=== PATIENT | female | born 1955 | race Caucasian/White ===

== ENCOUNTER 2023-12-10 17:14 | Inpatient (IN) | payer MEDICARE, SELFPAY ==
[2023-12-10] VITALS (11 sets, daily range): BP systolic 115–155; BP diastolic 63–88; BMI 25.4; BMI 24.3
--- NOTE | 2023-12-10 11:08 | ED.GENMED ---
History of Present Illness
General
Chief Complaint: Chest Pain
Source: patient and ambulance crew
Exam Limitations: none
Time Seen by Provider: 12/10/23 11:00
Nursing documentation reviewed up to this point in time: agreed with
Travel History
Have you had any contact with someone who has COVID-19?: No
Do you have any symptoms of coronavirus? Fever > 100 degrees, chills, cough, shortness of breath, sore throat, loss of taste or smell, muscle aches, or headache?: No
History of Present Illness
History of Present Illness:
The patient is a 68-year-old female who comes in with complaints of 2 days of nausea, vomiting and diarrhea. Patient reports mid upper abdominal pain radiating into her lower chest. She denies fever. She denies shortness of breath. She denies
bloody or black stools. Patient complains of feeling very nauseous. She denies recent antibiotic use or travel history. She denies sick contacts
Past History
Past History
ED Past Medical History: Cancer (Skin Cancer face), GERD, HTN, Psychiatric (Aniety), Other (GI bleeding, HIatal hernia. Ulcers, anemia. ) and Other (recent colitis, severe esophagitis, alcohol abuse, benzodiazepine withdrawal)
ED Past Surgical History: Appendectomy, Cholecystectomy, Gynecological (hysterectomy, RUE epicondylitis X 2) and Orthopedic
Patient has exhibited threatening behavior?: No
PSI?: No
Social History
Tobacco: Former smoker
Alcohol: Occasional
Drug: None
Personal:
Living: alone
Family History
Family History: Other
Review of Systems
Review of Systems
Allergies reviewed?: Yes
All Other Systems: ROS reviewed and negative except as documented in HPI and ROS
Constitutional: Reports fatigue
EENT: Reports no symptoms
Respiratory: Reports no symptoms
Cardiac: Reports chest pain
ABD/GI: Reports abdominal pain, nausea, vomiting and diarrhea
: Reports no symptoms
Musculoskeletal: Reports no symptoms
Skin: Reports no symptoms
Neurological: Reports no symptoms
Endocrine: Reports no symptoms
Hematologic/Lymphatic: Reports no symptoms
Psychiatric: Reports anxiety
Phy Exam
Physical Exam
Physical Exam:
Physical Exam
General: Patient appears very anxious. Is hyperventilating but conversational
Neck: supple. no meningeal signs. normal psoterior pharynx
Heart: s1/s2 regular rate and rhythm, no murmur. equal radial pulses.
Lungs: no acute respiratory distress. clear bilaterally
Abdomen: Soft. Nondistended. No pulsatile mass. Upper abdominal tenderness without rebound or guarding
Neuro: alert and oriented. no focal neurological deficits
Skin: no rash
Psychiatric: well kept. interactive and cooperative
Extremities: no edema. no calf tenderness. negative homans. good distal pulses
Scores
Heart Score for Chest Pain Patients
STEMI patient?: Not applicable
Course
Orders/Labs/Results
Orders:
Orders
12/10/23 11:01
Electrocardiogram (*1) Urgent
Reason for Study: Chest Pain
EKG- Treatment ONCE
12/10/23 11:16
Ondansetron HCl [Zofran] 4 mg PO NOW STA
12/10/23 11:26
Basic Metabolic Panel Urgent
Complete Blood Count/With Diff Urgent
Lipase Urgent
Troponin I Urgent
12/10/23 12:05
Alcohol Urgent
[id number]-Qbtjvzm Urgent
Comment: ADD ON
Potassium Urgent
0.9% Sodium Chloride 1000 ml [Nss] 1,000 ml IV BOLUS
12/10/23 12:08
Morphine Sulfate 4 mg IV NOW STA
Ondansetron Injectable [Zofran] 4 mg IV NOW STA
12/10/23 12:11
Morphine Sulfate 4 mg .ROUTE .STK-MED ONE
12/10/23 12:20
CT Abd/pelvis W Iv Cont Urgent
Comment:
Reason For Exam: epig pain, vomiting
12/10/23 12:37
Add On- LAB Urgent
Tests Added?: Liver-chem profile
12/10/23 12:41
Add On- LAB Urgent
Tests Added?: serum alcohol
12/10/23 13:32
Mag Hydrox/Al Hydrox/Simeth [Maalox] 30 ml Phenobarb/Hyoscy/Atropine/Scop [] 10 ml Viscous Lidocaine 2% [Xylocaine Viscous Cup] 10 ml PO NOW
12/10/23 13:34
Mag Hydrox/Al Hydrox/Simeth [Maalox] 30 ml .ROUTE .STK-MED ONE
Phenobarb/Hyoscy/Atropine/Scop [] 10 ml .ROUTE .STK-MED ONE
12/10/23 13:35
Viscous Lidocaine 2% [Xylocaine Viscous Cup] 15 ml .ROUTE .STK-MED ONE
Abnormal Lab Results
12/10/23 12/10/23
11:26 12:05
WBC 15.3 H 10^3/uL
(4.8-10.8)
RBC 3.43 L 10^6/uL
(4.20-5.40)
Hgb 11.1 L g/dL
(12.0-16.0)
Hct 31.7 L %
(37.0-47.0)
MCH 32.4 H pg
(27.0-31.0)
RDW 15.9 H %
(11.5-14.5)
Abs Immat Gran (auto) 0.1 H 10^3/uL
(0-0.05)
Absolute Neuts (auto) 13.6 H 10^3/uL
(1.4-6.5)
Absolute Lymphs (auto) 0.8 L 10^3/uL
(1.2-3.4)
Absolute Monos (auto) 0.7 H 10^3/uL
(0.1-0.6)
Neutrophils % 88.9 H %
(42.2-75.2)
Lymphocytes % 5.5 L %
(20.5-51.1)
Sodium 133 L mmol/L
(135-145)
Potassium 3.1 L mmol/L
(3.5-5.1)
Glucose 163 H mg/dl
(70-99)
Calcium 8.2 L mg/dl
(8.4-10.2)
Total Bilirubin 1.4 H mg/dl
(0.2-1.3)
AST 47 H U/L
(14-36)
Total Protein 6.1 L g/dl
(6.3-8.2)
12/10/23 11:26
12/10/23 12:05
Vital Signs
Initial and Last Documented VS:
Initial Vital Signs
Temp Pulse Resp BP Pulse Ox
98.3 F 108 22 123/73 98
12/10/23 10:58 12/10/23 10:58 12/10/23 10:58 12/10/23 10:58 12/10/23 10:58
Last Documented Vital Signs
Temp Pulse Resp BP Pulse Ox
98.3 F 96 20 129/74 98
12/10/23 10:58 12/10/23 12:00 12/10/23 12:00 12/10/23 12:00 12/10/23 10:58
MDM/Problems Addressed
Differential Diagnosis Includes:
Gastritis, gastroenteritis, acute cholecystitis, aortic aneurysm
MDM/Problems Addressed:
Patient presents with acute upper abdominal pain rating into her chest as well as acute nausea, vomiting and diarrhea
Chronic conditions affecting care:
GERD
Acute Exacerbation and/or Progression of Chronic Illness:
Patient may be having acute exacerbation of gastritis
Acute Exacerbation and/or Progression of Chronic Illness: Other (GERD)
*Pulse Oximetry
Patient hypoxic: no
*EKG
Interpreted by ED Provider?: Yes
Interpretation: abnormal
Comparison EKG: no changes
Rate: normal
Rhythm: sinus
Nunda: normal axis
Interval: normal interval
QRS Pattern: normal QRS
Ischemia: non-specific ST changes
*Activities Counselor Interpretation
Rate: normal
Interpretation: normal
Rhythm: sinus
*Critical Care Note
Total Time (30-74mins, 75-104mins- exclusive of procedures): Not Applicable
Data Reviewed
Review of Other/Old Records Reveals: Discharge Summary (Discharge summary reviewed from 10/10/2023 when patient was admitted for coffee-ground emesis and acute renal failure)
Source: patient and ambulance crew
ED Attending Note
-
Portions of this chart may have been created with voice recognition software.� Occasional wrong word or��sound alike� substitutions may have occurred due to the inherent limitations of voice recognition software.
Discharge Plan
Departure
Patient Disposition: Home (Routine Discharge)
Date of Disposition: 12/10/23
Time of Disposition: 13:57
Patient with high blood pressure during this ER visit?: Yes
Condition: Good
Covid-19: Not Applicable
Discharge Problem:
Intractable epigastric abdominal pain, Intractable vomiting
Prescriptions:
No Action
lorazepam [Ativan] 0.5 mg tablet
0.5 mg PO HSPRN PRN (Reason: sleep/anxiety) 5 Days Qty: 5 0RF
Rx Instructions:
12/10/23: filled #7 lorazepam 0.5mg tablets on 11/15/23 [facility] #[id number]
sumatriptan succinate [Imitrex] 50 mg tablet
50 mg PO ONCE
Rx Instructions:
Can repeat 50 mg dose 2 hours from last dose; max 200 mg/24 hrs; use for 2 days/week max
pantoprazole 40 mg tablet,delayed release (DR/EC)
40 mg PO BID
Referrals:
Ishaan Ames, [Family Provider] -
Interventions
Interventions:
*Risk Screen - Suicide Last Done: 12/10/23 10:58
*General Assessment Last Done: 12/10/23 10:58
*Neglect/Abuse Screening Last Done: 12/10/23 10:58
ED- Cardiac Assessment Last Done: 12/10/23 11:09
[2023-12-10] MEDS: ZOFRAN 4 MG PO (11:23)
[2023-12-10 11:36] LABS: % Basophils 0.4 % (0-2); % Eosinophils 0.1 % (0-6); % Immature Granulocytes 0.3 % (0-0.5); % Lymphocytes 5.5 % (20.5-51.1); % Monocytes 4.8 % (1.7-9.3); % Neutrophils 88.9 % (42.2-75.2); Absolute Basophils 0.1 10^3/uL (0-0.2); Absolute Immature Granulocytes 0.1 10^3/uL (0-0.05); Absolute Lymphocytes 0.8 10^3/uL (1.2-3.4); Absolute Monocytes 0.7 10^3/uL (0.1-0.6); Absolute Neutrophils 13.6 10^3/uL (1.4-6.5); Hematocrit 31.7 % (37.0-47.0); Hemoglobin 11.1 g/dL (12.0-16.0); Mean Corpuscular Hgb 32.4 pg (27.0-31.0); Mean Corpuscular Volume 92.4 fL (81.0-99.0); Mean Platelet Volume 9.9 fL (7.4-10.4); Nucleated Red Blood Cells % 0 %; Platelet Count 213 10^3/uL (130-400); Red Blood Cell Count 3.43 10^6/uL (4.20-5.40); Red Cell Dist. Width 15.9 % (11.5-14.5); White Blood Cell Count 15.3 10^3/uL (4.8-10.8)
[2023-12-10 11:55] LABS: Blood Urea Nitrogen 17 mg/dl (7-17); Calcium 8.2 mg/dl (8.4-10.2); Carbon Dioxide 22 mmol/L (22-30); Chloride 100 mmol/L (98-107); Estimated Creatinine Clearance 59 ml/min; Glucose 163 mg/dl (70-99); Lipase 69 U/L (23-300); Sodium 133 mmol/L (135-145); eGFR > 60.00
[2023-12-10 11:57] LABS: Troponin I < 0.012 ng/ml
[2023-12-10] MEDS: MORPHINE SULFATE 4 MG IV (12:13)
[2023-12-10] MEDS: ZOFRAN 4 MG IV ×2 (12:14→17:59)
[2023-12-10] MEDS: NSS 1000 IV (12:16)
[2023-12-10 12:27] LABS: Potassium 3.1 mmol/L (3.5-5.1)
--- NOTE | 2023-12-10 12:28 | PHANOTE ---
Patient with recent hospitalization [discharged 10/10/23] and subsequent PCP follow up on 10/31/23 with other medications documented as 'taking', however, patient denies ongoing use at home: Vitamin D3 2000 units daily, cholestyramine light 4gr daily
[for loose BMs], magnesium oxide 400mg BID, famotidine 40mg daily, folic acid 1mg daily, sucralfate 1 gr AC&HS, and thiamine 100mg daily.
[2023-12-10 13:18] LABS: ALT (SGPT) 21 U/L (0-35); AST (SGOT) 47 U/L (14-36); Albumin 3.8 g/dl (3.5-5.0); Alkaline Phosphatase 109 U/L (38-126); Direct Bilirubin 0.1 mg/dl (0.0-0.4); Total Bilirubin 1.4 mg/dl (0.2-1.3); Total Protein 6.1 g/dl (6.3-8.2)
[2023-12-10 13:19] LABS: Alcohol None Detected
[2023-12-10] MEDS: MAALOX 50 PO (13:39)
--- NOTE | 2023-12-10 14:04 | HPS.HSE ---
Family Physician
-
Family Physician: Ishaan Ames
Chief Complaint
-
nausea vomiting
History of Present Illness
68 female history alcohol use disorder (endorses rarely drinking at this time, with last drink a week ago) anxiety IBS hiatal hernia chronic diarrhea hypertension presents with nausea vomiting 2 days duration with associated abdomen pain. Denies
fevers chills coughing sneezing shortness of breath.. Endorses weakness. Vital signs stable. Mild leukocytosis noted. Labs noted mild hypokalemia severe hypomagnesemia likely due to chronic diarrhea exacerbated by nausea vomiting. Mild
transaminitis bilirubin elevation nonsignificant. CT abdomen pelvis notes signs of gastritis and fatty liver disease.
Medical History
Past Medical History
Past Medical History: Reports Other (as above)
Past Surgical History: Reports Other (as above)
Social History
Tobacco: Non-smoker
Alcohol: Occasional
Drug: None
Living: With Family
Employment: Retired
Family History
Family History: Not pertinent (reviewed)
Allergies / Home Medications
Allergies reflects when Allergies were last updated in [employer].
Home Medications with original date entered in [employer]
Allergy/Medication List:
Allergies
Allergy/AdvReac Type Severity Reaction Status Date / Time
aspirin Allergy Unknown Verified 12/10/23 11:05
gabapentin Allergy Unknown Verified 12/10/23 11:05
NSAIDS (Non-Steroidal Allergy Unknown Verified 12/10/23 11:05
Anti-Inflamma
[id number] Reductase Allergy Swelling Verified 12/10/23 11:05
Inhibitor
Sulfa (Sulfonamide Allergy Unknown Verified 12/10/23 11:05
Antibiotics)
Home Medications
lorazepam 0.5 mg tablet (Ativan) 0.5 mg PO HSPRN PRN sleep/anxiety 5 days #5 tabs 07/31/23
pantoprazole 40 mg tablet,delayed release 40 mg PO BID Gastrointestinal Issue 12/10/23
sumatriptan succinate 50 mg tablet (Imitrex) 50 mg PO ONCE migraine 12/10/23
Review of Systems
-
A 12 point ROS was completed and negative except as noted: Yes
Constitutional: Reports Other (as below)
Physical Exam
Vital Signs
Vital Signs
Temp Pulse Resp BP Pulse Ox
98.3 F 96 20 129/74 98
12/10/23 10:58 12/10/23 12:00 12/10/23 12:00 12/10/23 12:00 12/10/23 10:58
Physical Exam
General: Other (as below)
Laboratory Results
-
12/10/23 11:26
12/10/23 12:05
Laboratory Results
Total Bilirubin Cancelled 12/10/23 12:18
AST Cancelled 12/10/23 12:18
ALT Cancelled 12/10/23 12:18
Alkaline Phosphatase Cancelled 12/10/23 12:18
Troponin I < 0.012 ng/ml 12/10/23 11:26
Lipase 69 U/L (23-300) 12/10/23 11:26
Impression/Plan
-
ROS
General: Denies fever chills night sweats unexpected weight loss
Neuro: Denies seizure shaking loss of consciousness dizziness vertigo
Psych: denies depression hallucinations confusion manic episodes
Endocrine: Denies polyuria polydipsia polyphagia heat/cold intolerance
HEENT: Denies blindness visual disturbances epistaxis
Pulmonary: denies coughing hemoptysis sneezing sob dyspnea on exertion
Cardiovascular: denies chest pain palpitations leg swelling
Hematology: denies signs symptoms of anemia easy bruising/bleeding
Gastrointestinal: Endorses nausea vomiting diarrhea denies blood in stool and vomiting
Genito-Urinary: denies retention incontinence dysuria
Musculoskeletal: denies joint pain weakness
Dermatology: denies rash laceration bruising
Physical Exam
General: No pallor, cyanosis, or jaundice.
HEENT: Throat clear. PERRLA Normocephalic atraumatic
NECK: Supple. No JVD Carotid Bruits
RESPIRATORY: Lungs clear to auscultation. No crackles wheezes stridor
CVS: S1, S2 normal. RRR. No murmur, rub or gallop.
ABDOMEN: Soft, diffusely tender. Bowel sounds present
EXTREMITIES: No peripheral cyanosis or edema.
IT TECHNICAL ARCHITECT: AOx3. No focal deficits.
IMPRESSION:
68 female history alcohol use disorder (endorses rarely drinking at this time, with last drink a week ago) anxiety IBS hiatal hernia chronic diarrhea hypertension presents with nausea vomiting 2 days duration with associated abdomen pain. Denies
fevers chills coughing sneezing shortness of breath.. Endorses weakness. Vital signs stable. Mild leukocytosis noted. Labs noted mild hypokalemia severe hypomagnesemia likely due to chronic diarrhea exacerbated by nausea vomiting. Mild
transaminitis bilirubin elevation nonsignificant. CT abdomen pelvis notes signs of gastritis and fatty liver disease.
PLAN:
#Gastritis suspect viral versus acute exacerbation IBS
#Severe hypomagnesemia likely due to GI losses
#Mild hypokalemia
#History anxiety disorder
#IBS
#Leukocytosis suspect stress reactive
Telemetry admit
Monitor replete electrolytes
IV fluid support bowel rest n.p.o. except meds
prn pain antiemetics
Continue home Protonix twice daily
trend wbc
blood cultures empiric abx if patient develops fever
aggressively replete Mg and Potassium
cont home prn HS ativan
dvt Lovenox
gi ppx Protonix
meds reconciled and resumed as appropriate
Full Code
I spent a total of 80 minutes with the patient or on the floor. More than 50% of this time involved counseling and coordination of care.
[2023-12-10 15:33] LABS: Magnesium 0.7 mg/dl (1.6-2.3); Phosphorus 4.2 mg/dl (2.5-4.5)
[2023-12-10] MEDS: NSS with KCL 40 MEQ 1000 IV (17:07)
[2023-12-10] MEDS: MAGNESIUM SULFATE 100 IV (17:08)
[2023-12-10] MEDS: DILAUDID 0.5 MG IV (17:58)
[2023-12-10] MEDS: LR 1000 IV (18:25)
--- NOTE | 2023-12-10 21:30 | PTCARENOTE ---
Pt arrived to room 434-01. Pt ambulated from stretcher to bed with x1 assist. Pt AAOx3, VSS. Pt c/o 04/01 ABD pain, pain meds given prior to arrival- see NOV. Pt in no signs of acute distress, respirations regular. Pt oriented to room, call campos
placed within reach.
[2023-12-10] MEDS: TYLENOL 650 MG PO (21:43)
[2023-12-10] MEDS: LOVENOX 40 MG SC (21:43)
[2023-12-10] MEDS: PROTONIX 40 MG PO (21:43)
[2023-12-10] MEDS: ATIVAN 0.5 MG PO (21:44)
[2023-12-10 21:55] LABS: Blood Urea Nitrogen 11 mg/dl (7-17); Calcium 7.9 mg/dl (8.4-10.2); Carbon Dioxide 30 mmol/L (22-30); Chloride 102 mmol/L (98-107); Estimated Creatinine Clearance 59 ml/min; Glucose 112 mg/dl (70-99); Magnesium 2.7 mg/dl (1.6-2.3); Potassium 3.1 mmol/L (3.5-5.1); Sodium 133 mmol/L (135-145); eGFR > 60.00
[2023-12-11] MEDS: DILAUDID 0.5 MG IV ×5 (01:01→19:11)
[2023-12-11 03:00] VITALS: BP 124/76
--- NOTE | 2023-12-11 03:45 | PTCARENOTE ---
Pt reported chest pain, VSS BP 124/76, HR 85. EKG done NSR, in chart. Pt reports the pain was in the sternal area and gets worse with deep breaths. Pt stated, 'This has been going on for the last couple months.' Pt reports chest pain is almost
completely resolved. YOUTH PASTOR Vicki, So Ri made aware, no further orders.
[2023-12-11] MEDS: LR 1000 IV ×2 (05:25→15:49)
[2023-12-11] MEDS: ZOFRAN 4 MG IV ×2 (05:31→19:11)
[2023-12-11 06:23] VITALS: BMI 24.3
--- NOTE | 2023-12-11 07:11 | W.PN.HOSP.TC ---
Today's Communication/Plan
-
advance diet clear liquid
cont IVF support for now
replete Potassium and Calcium
Assessment / Plan
Assessment / Plan
Physical Exam
General: No pallor, cyanosis, or jaundice.
HEENT: Throat clear. PERRLA Normocephalic atraumatic
NECK: Supple. No JVD Carotid Bruits
RESPIRATORY: Lungs clear to auscultation. No crackles wheezes stridor
CVS: S1, S2 normal. RRR.� No murmur, rub or gallop.
ABDOMEN: Soft, diffusely tender.� Bowel sounds present
EXTREMITIES: No peripheral cyanosis or edema. Mild erythema tenderness swelling feet b/l
PHYSICS TECHNICIAN: AOx3. No focal deficits.
IMPRESSION:
68 female history alcohol use disorder (endorses rarely drinking at this time, with last drink a week ago) anxiety IBS hiatal hernia chronic diarrhea hypertension presents with nausea vomiting 2 days duration with associated abdomen pain.� Denies
fevers chills coughing sneezing shortness of breath..� Endorses weakness.� Vital signs stable.� Mild leukocytosis noted.� Labs noted mild hypokalemia severe hypomagnesemia likely due to chronic diarrhea exacerbated by nausea vomiting.� Mild
transaminitis bilirubin elevation nonsignificant.� CT abdomen pelvis notes signs of gastritis and fatty liver disease.
PLAN:
#Gastritis suspect viral versus acute exacerbation IBS
#Severe hypomagnesemia likely due to GI losses
#Mild hypokalemia
#Hypocalcemia
#History anxiety disorder
#IBS
#Leukocytosis suspect stress reactive, resolved w/o abx
#Mild erythema tenderness swelling feet b/l, monitor for now
Telemetry admit
Monitor replete electrolytes
diet advanced to clear liquid, cont IVF for now
prn pain antiemetics
Continue home Protonix twice daily
blood cultures empiric abx if patient develops fever
monitor and replete electrolytes Mg Potassium Calcium as necessary
cont home prn HS ativan
PT/OT eval
dvt Lovenox
gi ppx Protonix
Full Code
I spent a total of � 55 � minutes with the patient or on the floor. More than 50% of this time involved counseling and coordination of care.
Anticipated Discharge: 24 - 48 hours
Subjective/Interval History
-
Date of Service: December 11, 2023
Nausea resolved. Eager to eat. notes tenderness feet b/l past few days
Objective Data
-
Labs:
Laboratory Results
12/10/23 12/11/23
21:35 07:05
WBC Pending
Hgb Pending
Hct Pending
Plt Count Pending
Sodium 133 L Pending
Potassium 3.1 L Pending
Chloride 102 Pending
Carbon Dioxide 30 Pending
BUN 11 Pending
Creatinine 0.8 Pending
Glucose 112 H Pending
Calcium 7.9 L Pending
Vital Signs:
Vital Signs
Temp Pulse Resp BP Pulse Ox
98.1 F 85 18 124/76 96
12/11/23 03:00 12/11/23 03:00 12/11/23 03:00 12/11/23 03:00 12/10/23 22:43
I&O
12/10/23 12/11/23 12/12/23
06:59 06:59 06:59
Intake Total 700 / 700
Balance 700 / 700
[2023-12-11 07:48] VITALS: BP 130/68
[2023-12-11 08:36] LABS: Hematocrit 28.4 % (37.0-47.0); Hemoglobin 9.9 g/dL (12.0-16.0); Mean Corp Hgb Conc. 34.9 g/dL (33.0-37.0); Mean Corpuscular Hgb 33.1 pg (27.0-31.0); Mean Platelet Volume 10.3 fL (7.4-10.4); Platelet Count 154 10^3/uL (130-400); Red Blood Cell Count 2.99 10^6/uL (4.20-5.40); Red Cell Dist. Width 16.5 % (11.5-14.5); White Blood Cell Count 6.2 10^3/uL (4.8-10.8)
[2023-12-11 09:02] LABS: Blood Urea Nitrogen 7 mg/dl (7-17); Calcium 7.9 mg/dl (8.4-10.2); Carbon Dioxide 28 mmol/L (22-30); Chloride 103 mmol/L (98-107); Estimated Creatinine Clearance 59 ml/min; Glucose 96 mg/dl (70-99); Magnesium 1.8 mg/dl (1.6-2.3); Potassium 3.1 mmol/L (3.5-5.1); Sodium 134 mmol/L (135-145); eGFR > 60.00
[2023-12-11] MEDS: PROTONIX 40 MG PO ×2 (10:43→22:45)
[2023-12-11 11:41] VITALS: BP 147/77
[2023-12-11] MEDS: KCL 40 MEQ PO (15:49)
[2023-12-11 15:55] VITALS: BP 151/86
[2023-12-11] MEDS: CALCIUM GLUCONATE 100 IV (16:00)
--- NOTE | 2023-12-11 16:16 | CM ---
activity manager reviewed patient's chart and met with patient and patient lives with her friend Keira, patient states that ever since her boyfriend she has been living with her friend and her belongings are in storage. Patient is
independent with adl's and uses a walker with ambulation. patient has a prescription plan and used [facility].
PCP: Dr. Ishaan Ames
Plan: Home when stable.
[2023-12-11] MEDS: LOVENOX 40 MG SC (19:11)
[2023-12-11 19:44] VITALS: BP 136/77
[2023-12-11 22:16] VITALS: BP 146/82
[2023-12-11] MEDS: ATIVAN 0.5 MG PO (22:46)
[2023-12-12] VITALS (8 sets, daily range): BP systolic 108–154; BP diastolic 63–92; PULSE 96–99; O2SAT 97; BMI 24.3
[2023-12-12] MEDS: LR 1000 IV (03:39)
--- NOTE | 2023-12-12 07:23 | W.PN.HOSP.TC ---
Today's Communication/Plan
-
clear liquid diet advanced to low residue
IVF support completed
replete Potassium and Magnesium
Vit D supplementation started
Capsaicin cream QID b/l feet
Assessment / Plan
Assessment / Plan
Physical Exam
General: No pallor, cyanosis, or jaundice.
HEENT: Throat clear. PERRLA Normocephalic atraumatic
NECK: Supple. No JVD Carotid Bruits
RESPIRATORY: Lungs clear to auscultation. No crackles wheezes stridor
CVS: S1, S2 normal. RRR.� No murmur, rub or gallop.
ABDOMEN: Soft, diffusely tender.� Bowel sounds present
EXTREMITIES: No peripheral cyanosis or edema. Mild erythema tenderness swelling feet b/l improving
DIGITAL ENGINEER: AOx3
IMPRESSION:
68 female history alcohol use disorder (endorses rarely drinking at this time, with last drink a week ago) anxiety IBS hiatal hernia chronic diarrhea hypertension presents with nausea vomiting 2 days duration with associated abdomen pain.� Denies
fevers chills coughing sneezing shortness of breath..� Endorses weakness.� Vital signs stable.� Mild leukocytosis noted.� Labs noted mild hypokalemia severe hypomagnesemia likely due to chronic diarrhea exacerbated by nausea vomiting.� Mild
transaminitis bilirubin elevation nonsignificant.� CT abdomen pelvis notes signs of gastritis and fatty liver disease.
PLAN:
#Gastritis suspect viral versus acute exacerbation IBS
#Severe hypomagnesemia likely due to GI losses
#Mild hypokalemia
#Hypocalcemia
#History anxiety disorder
#IBS
#Leukocytosis suspect stress reactive, resolved w/o abx
#Mild erythema tenderness swelling feet b/l, monitor for now
Telemetry admit
Monitor replete electrolytes
diet advanced to Low residue, IVF completed
prn pain antiemetics
Continue home Protonix twice daily
blood cultures empiric abx if patient develops fever
monitor and replete electrolytes Mg Potassium Calcium as necessary
cont home prn HS ativan
PT/OT eval appreciated HH vs home no needs
#Vitamin D deficiency
Supplementation started
#B/l feet tenderness swelling erythema improving
capsaicin cream QID started
dvt Lovenox
gi ppx Protonix
Full Code
I spent a total of � 55 � minutes with the patient or on the floor. More than 50% of this time involved counseling and coordination of care.
Anticipated Discharge: 24 - 48 hours
Subjective/Interval History
-
Date of Service: December 12, 2023
Overall reports improvement in symptoms though continues to endorse b/l feet tenderness (color and swelling since improved). Also endorses episode nausea resolved with anti-emetic and reports diarrhea. Patient is however eager to advance diet to
solids, has no issues staying hydrated/drinking.
Objective Data
-
Labs:
Laboratory Results
12/12/23
06:58
WBC Pending
Hgb Pending
Hct Pending
Plt Count Pending
Sodium Pending
Potassium Pending
Chloride Pending
Carbon Dioxide Pending
BUN Pending
Creatinine Pending
Glucose Pending
Calcium Pending
Vital Signs:
Vital Signs
Temp Pulse Resp BP Pulse Ox
98.2 F 77 18 143/85 95
12/12/23 03:23 12/12/23 03:23 12/12/23 03:23 12/12/23 03:23 12/12/23 03:23
I&O
12/11/23 12/12/23 12/13/23
06:59 06:59 06:59
Intake Total 700 / 700 2099 900 / 900
Balance 700 / 700 2099 900 / 900
[2023-12-12] MEDS: DILAUDID 0.5 MG IV ×3 (08:19→17:40)
[2023-12-12] MEDS: PROTONIX 40 MG PO ×2 (08:19→21:19)
[2023-12-12 08:55] LABS: Hematocrit 30.7 % (37.0-47.0); Hemoglobin 10.6 g/dL (12.0-16.0); Mean Corp Hgb Conc. 34.5 g/dL (33.0-37.0); Mean Corpuscular Hgb 32.8 pg (27.0-31.0); Mean Platelet Volume 10.6 fL (7.4-10.4); Platelet Count 165 10^3/uL (130-400); Red Blood Cell Count 3.23 10^6/uL (4.20-5.40); Red Cell Dist. Width 15.9 % (11.5-14.5)
[2023-12-12 09:31] LABS: Blood Urea Nitrogen 3 mg/dl (7-17); Calcium 8.6 mg/dl (8.4-10.2); Carbon Dioxide 34 mmol/L (22-30); Chloride 100 mmol/L (98-107); Estimated Creatinine Clearance 59 ml/min; Glucose 98 mg/dl (70-99); Iron 63 ug/dl (37-170); Magnesium 1.2 mg/dl (1.6-2.3); Potassium 2.9 mmol/L (3.5-5.1); Sodium 137 mmol/L (135-145); eGFR > 60.00
[2023-12-12 09:40] LABS: Percent Saturation 25 % (20-50); Total Iron Binding Capacity 251 ug/dl (265-497)
[2023-12-12 11:37] LABS: Vitamin D, 25-OH*** 14.8 ng/mL (30-80)
[2023-12-12 12:26] LABS: Folate > 20.0 ng/ml (2.76-20); Vitamin B12 469 pg/ml (239-931)
[2023-12-12] MEDS: ZOFRAN 4 MG IV (12:40)
[2023-12-12] MEDS: VITAMIN D3 (cholecalciferol) 25 MCG PO (13:47)
[2023-12-12] MEDS: KCL 40 MEQ PO (13:47)
[2023-12-12] MEDS: MAGNESIUM SULFATE 100 IV (13:55)
[2023-12-12] MEDS: LR IV (13:55)
--- NOTE | 2023-12-12 14:53 | PN.CDI ---
CDI
- -
CDI:
Physician Documentation Request
Admit Date: 12/10/23 17:14
Dear Doctor Annika,
Clinical Indicators:
Patient admitted with suspected gastritis.
NSS bolus and maintenance fluids given.
Sodium levels:
12/10/23 12/10/23 12/11/23
11:26 21:35 07:05
Sodium 133 L 133 L 134 L
Based on the above, could you clarify in the progress notes, the appropriate diagnosis, if significant, that supports the above abnormalities and additional evaluation, monitoring and/or treatment rendered:
Hyponatremia
Abnormal lab value, clinically insignificant
Other, please specify
Use of terms such as suspected, likely, concern for, or probable (associated with a specific diagnosis that is being evaluated, monitored, or treated as if it exists) are acceptable and can be coded in the inpatient setting, when documented at the
time of discharge.
Thank you,
SHAHRZAD Schuster RN
CDI Specialist
available via tiger text
Please use your independent medical judgment in providing your response.
--- NOTE | 2023-12-12 16:05 | CM ---
manager clinical research reviewed patient's chart and met with patient and patient did well with physical therapy and plan is to home with friend at discharge. Patient was asking about housing options. manager clinical research provided information on HUB, housing and
apartments in area.
Home when stable, no needs.
[2023-12-12] MEDS: LOVENOX 40 MG SC (17:41)
[2023-12-12] MEDS: ZOSTRIX 0.025% CREAM 1 APPLIC TOPICAL ×2 (17:41→21:19)
[2023-12-12] MEDS: KCL 20 MEQ PO (21:19)
[2023-12-12] MEDS: ATIVAN 0.5 MG PO (22:36)
[2023-12-12] MEDS: TYLENOL 650 MG PO (22:41)
[2023-12-13 03:55] VITALS: BP 143/73
[2023-12-13 06:00] VITALS: BMI 24.1
--- NOTE | 2023-12-13 06:39 | PTCARENOTE ---
Patient is NPO, 0600 sugar was 80. Patient asymptomatic. NSS running. Janelle Yoon PRODUCTION SUPPORT CONSULTANT made aware, will make dayshift RN aware.
[2023-12-13 07:10] VITALS: BP 132/81
--- NOTE | 2023-12-13 07:58 | W.PN.HOSP.TC ---
Today's Communication/Plan
-
monitor and replete electrolytes
carafate as per GI
pain control
cont Vit D supplementation
Assessment / Plan
Assessment / Plan
Physical Exam
General: No pallor, cyanosis, or jaundice.
HEENT: Throat clear. PERRLA Normocephalic atraumatic
NECK: Supple. No JVD Carotid Bruits
RESPIRATORY: Lungs clear to auscultation. No crackles wheezes stridor
CVS: S1, S2 normal. RRR.� No murmur, rub or gallop.
ABDOMEN: Soft, diffusely tender.� Bowel sounds present
EXTREMITIES: No peripheral cyanosis or edema. Mild erythema tenderness swelling feet b/l improving
ADULT PAROLE OFFICER: AOx3
IMPRESSION:
68 female history alcohol use disorder (endorses rarely drinking at this time, with last drink a week ago) anxiety IBS hiatal hernia chronic diarrhea hypertension presents with nausea vomiting 2 days duration with associated abdomen pain.� Denies
fevers chills coughing sneezing shortness of breath..� Endorses weakness.� Vital signs stable.� Mild leukocytosis noted.� Labs noted mild hypokalemia severe hypomagnesemia likely due to chronic diarrhea exacerbated by nausea vomiting.� Mild
transaminitis bilirubin elevation nonsignificant.� CT abdomen pelvis notes signs of gastritis and fatty liver disease.
PLAN:
#Gastritis suspect viral versus acute exacerbation IBS
#Severe hypomagnesemia likely due to GI losses
#Mild hypokalemia
#Hypocalcemia
#History anxiety disorder
#IBS
#Leukocytosis suspect stress reactive, resolved w/o abx
#Mild erythema tenderness swelling feet b/l, monitor for now
Telemetry admit
Monitor replete electrolytes
diet advanced to Low residue, IVF completed
prn pain antiemetics
Continue home Protonix twice daily
blood cultures empiric abx if patient develops fever
monitor and replete electrolytes Mg Potassium Calcium as necessary
cont home prn HS ativan
PT/OT eval appreciated HH vs home no needs
GI eval appreciated carafate 1g QID, outpt GI follow up
#Vitamin D deficiency
Supplementation started
#B/l feet tenderness swelling erythema improving
capsaicin cream QID started, no benefit noted, discontinued
Feet b/l XR appreciated no acute fracture/dislocation, degenerative joint disease, soft tissue swelling L>R, improved from prior imaging
dvt Lovenox
gi ppx Protonix
Full Code
I spent a total of � 55 � minutes with the patient or on the floor. More than 50% of this time involved counseling and coordination of care.
Anticipated Discharge: 24 - 48 hours
Subjective/Interval History
-
Date of Service: December 13, 2023
Seen and examined at bedside in no acute distress. Overall symptoms improved. Reports intermittent nausea, increased Belching. Continues to report b/l feet tenderness swelling
Objective Data
-
Labs:
Laboratory Results
12/13/23
07:06
WBC Pending
Hgb Pending
Hct Pending
Plt Count Pending
Sodium Pending
Potassium Pending
Chloride Pending
Carbon Dioxide Pending
BUN Pending
Creatinine Pending
Glucose Pending
Calcium Pending
Vital Signs:
Vital Signs
Temp Pulse Resp BP Pulse Ox
98.4 F 66 16 143/73 97
12/13/23 03:55 12/13/23 03:55 12/13/23 03:55 12/13/23 03:55 12/13/23 03:55
I&O
12/12/23 12/13/23 12/14/23
06:59 06:59 06:59
Intake Total 2099 2780 / 2780
Balance 2099 2780 / 2780
[2023-12-13] MEDS: PROTONIX 40 MG PO ×2 (08:21→19:30)
[2023-12-13] MEDS: ZOSTRIX 0.025% CREAM 1 APPLIC TOPICAL ×2 (08:22→22:08)
[2023-12-13] MEDS: VITAMIN D3 (cholecalciferol) 25 MCG PO (08:22)
[2023-12-13] MEDS: KCL 20 MEQ PO ×2 (08:22→19:30)
[2023-12-13] MEDS: DILAUDID 0.5 MG IV ×3 (08:57→19:31)
[2023-12-13 09:38] LABS: Hematocrit 37.1 % (37.0-47.0); Hemoglobin 12.7 g/dL (12.0-16.0); Mean Corp Hgb Conc. 34.2 g/dL (33.0-37.0); Mean Corpuscular Hgb 32.8 pg (27.0-31.0); Mean Corpuscular Volume 95.9 fL (81.0-99.0); Mean Platelet Volume 10.4 fL (7.4-10.4); Platelet Count 183 10^3/uL (130-400); Red Blood Cell Count 3.87 10^6/uL (4.20-5.40); Red Cell Dist. Width 16.4 % (11.5-14.5); White Blood Cell Count 4.6 10^3/uL (4.8-10.8)
[2023-12-13 10:17] LABS: Blood Urea Nitrogen 8 mg/dl (7-17); Carbon Dioxide 34 mmol/L (22-30); Chloride 97 mmol/L (98-107); Estimated Creatinine Clearance 52 ml/min; Glucose 95 mg/dl (70-99); Potassium 3.2 mmol/L (3.5-5.1); Sodium 138 mmol/L (135-145); eGFR > 60.00
[2023-12-13 11:05] VITALS: BP 125/76
[2023-12-13] MEDS: ZOSTRIX 0.025% CREAM TOPICAL ×2 (12:53→17:06)
--- NOTE | 2023-12-13 14:03 | CM ---
Chart reviewed and plan is for patient to return to home when stable.
Plan; Home no needs.
[2023-12-13 15:10] VITALS: BP 120/58
[2023-12-13] MEDS: LOVENOX 40 MG SC (16:53)
[2023-12-13] MEDS: CARAFATE 1 GRAM PO ×2 (16:53→22:08)
[2023-12-13] MEDS: LIDOCAINE 4% PATCH 1 PATCH TOPICAL (16:53)
[2023-12-13 19:30] VITALS: BP 165/92
[2023-12-13] MEDS: ATIVAN 0.5 MG PO (22:08)
[2023-12-13] MEDS: TYLENOL 650 MG PO (22:08)
[2023-12-13 23:33] VITALS: BP 158/89
[2023-12-14] MEDS: DILAUDID 0.5 MG IV ×3 (00:05→13:07)
[2023-12-14] MEDS: TYLENOL 650 MG PO ×3 (03:17→22:04)
[2023-12-14 03:54] VITALS: BP 125/80
[2023-12-14 05:59] VITALS: BMI 24.3
[2023-12-14 07:00] VITALS: BP 130/85
[2023-12-14 07:08] LABS: Hematocrit 31.2 % (37.0-47.0); Hemoglobin 10.6 g/dL (12.0-16.0); Mean Corpuscular Hgb 32.6 pg (27.0-31.0); Mean Platelet Volume 9.9 fL (7.4-10.4); Platelet Count 184 10^3/uL (130-400); Red Blood Cell Count 3.25 10^6/uL (4.20-5.40); Red Cell Dist. Width 16.2 % (11.5-14.5); White Blood Cell Count 5.4 10^3/uL (4.8-10.8)
--- NOTE | 2023-12-14 07:17 | W.PN.HOSP.TC ---
Today's Communication/Plan
-
multivitamin thiamine supplementation
replete magnesium
carafate questran as per GI
Discharge planning home with VN vs no needs
Assessment / Plan
Assessment / Plan
Physical Exam
General: No pallor, cyanosis, or jaundice.
HEENT: Throat clear. PERRLA Normocephalic atraumatic
NECK: Supple. No JVD Carotid Bruits
RESPIRATORY: Lungs clear to auscultation. No crackles wheezes stridor
CVS: S1, S2 normal. RRR.� No murmur, rub or gallop.
ABDOMEN: Soft, diffusely tender.� Bowel sounds present
EXTREMITIES: No peripheral cyanosis or edema. Mild erythema tenderness swelling feet b/l improving
CHILDCARE AIDE: AOx3
IMPRESSION:
68 female history alcohol use disorder (endorses rarely drinking at this time, with last drink a week ago) anxiety IBS hiatal hernia chronic diarrhea hypertension presents with nausea vomiting 2 days duration with associated abdomen pain.� Denies
fevers chills coughing sneezing shortness of breath..� Endorses weakness.� Vital signs stable.� Mild leukocytosis noted.� Labs noted mild hypokalemia severe hypomagnesemia likely due to chronic diarrhea exacerbated by nausea vomiting.� Mild
transaminitis bilirubin elevation nonsignificant.� CT abdomen pelvis notes signs of gastritis and fatty liver disease.
PLAN:
#Gastritis suspect viral versus acute exacerbation IBS
#Severe hypomagnesemia likely due to GI losses
#Mild hypokalemia
#Hypocalcemia
#History anxiety disorder
#IBS
#Leukocytosis suspect stress reactive, resolved w/o abx
#Mild erythema tenderness swelling feet b/l, monitor for now
Telemetry admit
Monitor replete electrolytes
diet advanced to Low residue, IVF completed
prn pain antiemetics
Continue home Protonix twice daily
blood cultures empiric abx if patient develops fever
monitor and replete electrolytes Mg Potassium Calcium as necessary
cont home prn HS ativan
PT/OT eval appreciated HH vs home no needs
GI eval appreciated carafate 1g QID, Questran daily, outpt GI follow up
#Vitamin D deficiency
Supplementation started
#B/l feet tenderness swelling erythema improving
capsaicin cream QID started, no benefit noted, discontinued
Feet b/l XR appreciated no acute fracture/dislocation, degenerative joint disease, soft tissue swelling L>R, improved from prior imaging
suspect b/l feet pain d/t nutritional deficiencies vs neuropathy vs arthritis
Multivitamin thiamine supplementation started
dvt Lovenox
gi ppx Protonix
Full Code
I spent a total of � 55 � minutes with the patient or on the floor. More than 50% of this time involved counseling and coordination of care.
Anticipated Discharge: Within 24 hours
Subjective/Interval History
-
Date of Service: December 14, 2023
No acute distress sitting up comfortably in bed. continues to endorse bilateral feet pain.
Objective Data
-
Labs:
Laboratory Results
12/14/23
06:44
WBC 5.4
Hgb 10.6 L
Hct 31.2 L
Plt Count 184
Sodium Pending
Potassium Pending
Chloride Pending
Carbon Dioxide Pending
BUN Pending
Creatinine Pending
Glucose Pending
Calcium Pending
Vital Signs:
Vital Signs
Temp Pulse Resp BP Pulse Ox
98.4 F 72 18 125/80 93
12/14/23 03:54 12/14/23 03:54 12/14/23 03:54 12/14/23 03:54 12/14/23 03:54
I&O
12/13/23 12/14/23 12/15/23
06:59 06:59 06:59
Intake Total 2780 / 2780 440 / 440
Balance 2780 / 2780 440 / 440
[2023-12-14 07:28] LABS: Blood Urea Nitrogen 16 mg/dl (7-17); Calcium 8.6 mg/dl (8.4-10.2); Carbon Dioxide 30 mmol/L (22-30); Chloride 101 mmol/L (98-107); Estimated Creatinine Clearance 59 ml/min; Glucose 110 mg/dl (70-99); Potassium 3.7 mmol/L (3.5-5.1); Sodium 134 mmol/L (135-145); eGFR > 60.00
[2023-12-14] MEDS: CARAFATE 1 GRAM PO ×4 (08:22→22:04)
[2023-12-14] MEDS: FLUSH (NSS) 1 FLUSH IV ×2 (08:29→18:02)
[2023-12-14 08:34] LABS: Magnesium 1.4 mg/dl (1.6-2.3)
[2023-12-14] MEDS: PROTONIX 40 MG PO ×2 (09:31→19:58)
[2023-12-14] MEDS: VITAMIN B1 100 MG PO (09:31)
[2023-12-14] MEDS: THERAGRAN 1 TABLET PO (09:32)
[2023-12-14] MEDS: VITAMIN D3 (cholecalciferol) 25 MCG PO (09:32)
[2023-12-14] MEDS: MAGNESIUM OXIDE 500 MG PO (09:32)
[2023-12-14] MEDS: KCL 20 MEQ PO ×2 (09:33→19:58)
[2023-12-14] MEDS: LIDOCAINE 4% PATCH 1 PATCH TOPICAL (09:35)
[2023-12-14] MEDS: ZOSTRIX 0.025% CREAM 1 APPLIC TOPICAL ×3 (09:38→17:18)
[2023-12-14 11:00] VITALS: BP 104/65
[2023-12-14] MEDS: QUESTRAN LIGHT/PREVALITE 4 GRAMS PO (11:20)
--- NOTE | 2023-12-14 13:07 | W.PN.GI.CBS2 ---
Today's Communication / Plan
-
Continue Protonix/Carafate/Questran
Outpatient GI follow-up
Assessment / Plan
-
68-year-old female with history of Alcohol abuse, GERD with hiatal hernia, hypertension admitted with nausea/vomiting/abdominal pain for 2 days.� Multiple prior hospitalization with similar symptoms in the past. Denies any recent alcohol use.� On
admission noted to have elevated WBC /Electrolyte abnormalities�hypokalemia, severe hypomagnesemia. CT abdomen/pelvis with IV contrast performed in the ED. AST 47/ALT 21/total bilirubin 1.4/direct 1.1/alkaline phosphatase 109 lipase normal
Thickened gastric wall suggestive of gastritis.� S/p cholecystectomy.� Dilatation of common bile duct.� Fatty liver.� Liver hemangioma/cyst.� Currently claims she is feeling better and tolerating diet.� Intermittent belching sensation.� Denies any
vomiting.� Bowel movements are normal.� Denies any diarrhea
Nausea/vomiting/abdominal pain-currently resolved.� Tolerating diet.� Possible gastritis secondary to infection versus alcohol versus etc.
Increased belching
Abdominal bloating/intermittent diarrhea-likely IBS
History of cholecystectomy with chronically dilated bile duct
plan
Continue Protonix 40 mg twice daily
Continue Carafate 1 g 4 times daily
Continue Questran
Currently denies any diarrhea.� If diarrhea persist stool studies for infection
Management of electrolytes as per medical team.� Nephrology follow-up
Advised on alcohol abstinence
GI follow-up as outpatient with Dr. Huynh. No further GI recommendation at this point. Will sign off
Total Time Spent with Patient (in minutes): 35
Subjective
Subjective
Date of Service: December 14, 2023
Tolerating diet. Feeling better. Intermittent burping. Denies any diarrhea
Objective
Data Reviewed
Laboratory Data:
Laboratory Results
12/14/23 06:44
12/14/23 06:44
Laboratory Results
Phosphorus 4.2 mg/dl (2.5-4.5) 12/10/23 12:05
Magnesium 1.4 mg/dl (1.6-2.3) L 12/14/23 06:44
Total Bilirubin Cancelled 12/10/23 12:18
AST Cancelled 12/10/23 12:18
ALT Cancelled 12/10/23 12:18
Alkaline Phosphatase Cancelled 12/10/23 12:18
Lipase 69 U/L (23-300) 12/10/23 11:26
Vital Signs and I&O:
Vital Signs
Temp Pulse Resp BP Pulse Ox
98.3 F 78 18 104/65 94
12/14/23 11:00 12/14/23 11:00 12/14/23 11:00 12/14/23 11:00 12/14/23 11:00
I&O
12/13/23 12/14/23 12/15/23
06:59 06:59 06:59
Intake Total 2780 / 2780 440 / 440
Balance 2780 / 2780 440 / 440
Physical Exam
Physical Exam
GI: Soft, Non Distended and Non Tender
[2023-12-14] MEDS: ZOFRAN 4 MG IV (13:20)
[2023-12-14 15:00] VITALS: BP 123/79
[2023-12-14] MEDS: LOVENOX 40 MG SC (17:18)
[2023-12-14] MEDS: MAGNESIUM SULFATE 50 IV (18:02)
[2023-12-14] MEDS: ROXICODONE 5 MG PO (18:04)
[2023-12-14 19:39] VITALS: BP 112/73
[2023-12-14] MEDS: ATIVAN 0.5 MG PO (22:04)
[2023-12-14 22:44] VITALS: BP 158/84
[2023-12-15 03:29] VITALS: BP 121/85
[2023-12-15] MEDS: ROXICODONE 5 MG PO ×3 (03:31→18:11)
[2023-12-15 05:58] VITALS: BMI 24.1
[2023-12-15 06:20] LABS: Hematocrit 33.3 % (37.0-47.0); Hemoglobin 11.3 g/dL (12.0-16.0); Mean Corp Hgb Conc. 33.9 g/dL (33.0-37.0); Mean Corpuscular Hgb 33.2 pg (27.0-31.0); Mean Corpuscular Volume 97.9 fL (81.0-99.0); Platelet Count 186 10^3/uL (130-400); Red Cell Dist. Width 16.7 % (11.5-14.5); White Blood Cell Count 6.1 10^3/uL (4.8-10.8)
[2023-12-15 06:40] LABS: Blood Urea Nitrogen 17 mg/dl (7-17); Calcium 9.2 mg/dl (8.4-10.2); Carbon Dioxide 29 mmol/L (22-30); Chloride 102 mmol/L (98-107); Estimated Creatinine Clearance 52 ml/min; Glucose 120 mg/dl (70-99); Potassium 4.2 mmol/L (3.5-5.1); Sodium 137 mmol/L (135-145); eGFR > 60.00
[2023-12-15 06:44] LABS: Magnesium 1.9 mg/dl (1.6-2.3)
--- NOTE | 2023-12-15 06:58 | W.PN.HOSP.TC ---
Addendum entered and electronically signed by Thu Roblero MD 12/16/23 00:31:
Mild Hyponatremia nonsignificant
Original Note:
Today's Communication/Plan
-
multivitamin thiamine supplementation
monitor and replete electrolytes
carafate questran as per GI
pain control, trial Cymbalta
Assessment / Plan
Assessment / Plan
Physical Exam
General: No pallor, cyanosis, or jaundice.
HEENT: Throat clear. PERRLA Normocephalic atraumatic
NECK: Supple. No JVD Carotid Bruits
RESPIRATORY: Lungs clear to auscultation. No crackles wheezes stridor
CVS: S1, S2 normal. RRR.� No murmur, rub or gallop.
ABDOMEN: Soft, diffusely tender.� Bowel sounds present
EXTREMITIES: No peripheral cyanosis or edema. Mild erythema tenderness swelling feet b/l improving
STOCK AND STATION AGENT: AOx3
IMPRESSION:
68 female history alcohol use disorder (endorses rarely drinking at this time, with last drink a week ago) anxiety IBS hiatal hernia chronic diarrhea hypertension presents with nausea vomiting 2 days duration with associated abdomen pain.� Denies
fevers chills coughing sneezing shortness of breath..� Endorses weakness.� Vital signs stable.� Mild leukocytosis noted.� Labs noted mild hypokalemia severe hypomagnesemia likely due to chronic diarrhea exacerbated by nausea vomiting.� Mild
transaminitis bilirubin elevation nonsignificant.� CT abdomen pelvis notes signs of gastritis and fatty liver disease.
PLAN:
#Gastritis suspect viral versus acute exacerbation IBS resolved
#Severe hypomagnesemia likely due to GI losses
#Mild hypokalemia
#Hypocalcemia
#History anxiety disorder
#IBS
#Leukocytosis suspect stress reactive, resolved w/o abx
#Mild erythema tenderness swelling feet b/l, Likely Neuropathy vs Degenerative Joint Disease
Telemetry admit
Monitor replete electrolytes
diet advanced to Low residue, IVF completed
prn pain antiemetics
Continue home Protonix twice daily
monitor and replete electrolytes Mg Potassium Calcium as necessary
cont home prn HS ativan
PT/OT eval appreciated HH vs home no needs
GI eval appreciated carafate 1g QID, Questran daily, outpt GI follow up
#Vitamin D deficiency
Supplementation started, cont
#B/l feet tenderness swelling erythema improved
capsaicin cream QID started, no benefit noted, discontinued
Feet b/l XR appreciated no acute fracture/dislocation, degenerative joint disease, soft tissue swelling L>R, improved from prior imaging
Outpt Podiatry follow up recommended
suspect b/l feet pain d/t nutritional deficiencies vs neuropathy vs arthritis
Multivitamin thiamine supplementation started
reports allergy to Gabapentin
oxycodone 5 mg Q6H
trial Cymbalta 20 mg HS started 12/14
dvt Lovenox
gi ppx Protonix
Full Code
I spent a total of � 50 � minutes with the patient or on the floor. More than 50% of this time involved counseling and coordination of care.
Anticipated Discharge: 24 - 48 hours
Subjective/Interval History
-
Date of Service: December 15, 2023
Continues to report severe burning pain b/l feet tenderness. nausea diarrhea since resolved. tolerating diet
Objective Data
-
Labs:
Laboratory Results
12/15/23
06:11
WBC 6.1
Hgb 11.3 L
Hct 33.3 L
Plt Count 186
Sodium 137
Potassium 4.2
Chloride 102
Carbon Dioxide 29
BUN 17
Creatinine 0.9
Glucose 120 H
Calcium 9.2
Vital Signs:
Vital Signs
Temp Pulse Resp BP Pulse Ox
98.3 F 97 16 121/85 99
12/15/23 03:29 12/15/23 03:29 12/15/23 03:29 12/15/23 03:29 12/15/23 03:29
I&O
12/13/23 12/14/23 12/15/23
06:59 06:59 06:59
Intake Total 2780 / 2780 440 / 440 2260 / 2260
Balance 2780 / 2780 440 / 440 2260 / 2260
[2023-12-15 08:07] VITALS: BP 117/68
[2023-12-15] MEDS: CARAFATE 1 GRAM PO ×4 (08:39→21:47)
[2023-12-15] MEDS: LIDOCAINE 4% PATCH 1 PATCH TOPICAL (09:25)
[2023-12-15] MEDS: VITAMIN B1 100 MG PO (09:26)
[2023-12-15] MEDS: KCL 20 MEQ PO ×2 (09:27→21:47)
[2023-12-15] MEDS: VITAMIN D3 (cholecalciferol) 25 MCG PO (09:27)
[2023-12-15] MEDS: MAGNESIUM OXIDE 500 MG PO (09:27)
[2023-12-15] MEDS: PROTONIX 40 MG PO ×2 (09:27→21:47)
[2023-12-15] MEDS: THERAGRAN 1 TABLET PO (09:28)
[2023-12-15 12:10] VITALS: BP 123/77
[2023-12-15] MEDS: QUESTRAN LIGHT/PREVALITE 4 GRAMS PO (12:49)
[2023-12-15 15:46] VITALS: BP 127/73
[2023-12-15] MEDS: TYLENOL 650 MG PO (16:26)
[2023-12-15] MEDS: LOVENOX 40 MG SC (16:27)
[2023-12-15 19:40] VITALS: BP 142/81
[2023-12-15] MEDS: CYMBALTA DELAYED RELEASE 20 MG PO (21:47)
[2023-12-15] MEDS: ATIVAN 0.5 MG PO (22:07)
[2023-12-15 22:55] VITALS: BP 149/75
[2023-12-16 01:20] VITALS: BMI 24.3
[2023-12-16] MEDS: ROXICODONE 5 MG PO ×2 (03:24→09:43)
[2023-12-16 03:36] VITALS: BP 134/69
[2023-12-16] MEDS: LIDOCAINE 4% PATCH 1 PATCH TOPICAL (07:36)
[2023-12-16] MEDS: KCL 20 MEQ PO (07:39)
[2023-12-16] MEDS: THERAGRAN 1 TABLET PO (07:39)
[2023-12-16] MEDS: QUESTRAN LIGHT/PREVALITE 4 GRAMS PO (07:39)
[2023-12-16] MEDS: CARAFATE 1 GRAM PO ×2 (07:40→12:31)
[2023-12-16] MEDS: VITAMIN B1 100 MG PO (07:40)
[2023-12-16] MEDS: MAGNESIUM OXIDE 500 MG PO (07:41)
[2023-12-16] MEDS: VITAMIN D3 (cholecalciferol) 25 MCG PO (07:41)
[2023-12-16] MEDS: PROTONIX 40 MG PO (07:41)
[2023-12-16 07:44] VITALS: BP 135/87
[2023-12-16 09:01] LABS: Hemoglobin 11.4 g/dL (12.0-16.0); Mean Corp Hgb Conc. 33.5 g/dL (33.0-37.0); Mean Corpuscular Hgb 32.5 pg (27.0-31.0); Mean Corpuscular Volume 96.9 fL (81.0-99.0); Mean Platelet Volume 9.9 fL (7.4-10.4); Platelet Count 224 10^3/uL (130-400); Red Blood Cell Count 3.51 10^6/uL (4.20-5.40); Red Cell Dist. Width 16.2 % (11.5-14.5); White Blood Cell Count 5.9 10^3/uL (4.8-10.8)
[2023-12-16 09:05] LABS: Blood Urea Nitrogen 21 mg/dl (7-17); Calcium 10.1 mg/dl (8.4-10.2); Carbon Dioxide 23 mmol/L (22-30); Chloride 103 mmol/L (98-107); Estimated Creatinine Clearance 59 ml/min; Glucose 105 mg/dl (70-99); Magnesium 1.5 mg/dl (1.6-2.3); Sodium 133 mmol/L (135-145); eGFR > 60.00
[2023-12-16] MEDS: MAGNESIUM SULFATE 100 IV (09:26)
--- NOTE | 2023-12-16 10:30 | CM ---
Chart reviewed and plan is to home when stable.
Plan; Home when stable.
[2023-12-16 11:08] VITALS: BP 108/75
--- NOTE | 2023-12-16 12:21 | W.PN.HOSP.TC ---
Addendum entered and electronically signed by Donovan Smith MD 12/17/23 08:51:
More than 30 minutes spent in discharge including
Final examination of the patient
Summarizing hospital stay
Instructions for continuing care to all relevant caregivers
Preparation of discharge records, prescriptions, and referral forms
Total time spent (in minutes): 41
Original Note:
Today's Communication/Plan
-
diet tolerance
anti-nausea prn
pain control
start dispo
Assessment / Plan
Assessment / Plan
Physical Exam
General: No pallor, cyanosis, or jaundice.
HEENT: Throat clear. PERRLA Normocephalic atraumatic
NECK: Supple. No JVD Carotid Bruits
RESPIRATORY: Lungs clear to auscultation. No crackles wheezes stridor
CVS: S1, S2 normal. RRR.� No murmur, rub or gallop.
ABDOMEN: Soft, diffusely tender.� Bowel sounds present
EXTREMITIES: No peripheral cyanosis or edema. Mild erythema tenderness swelling feet b/l improving
SKIDDER DRIVER: AOx3
IMPRESSION:
68 female history alcohol use disorder (endorses rarely drinking at this time, with last drink a week ago) anxiety IBS hiatal hernia chronic diarrhea hypertension presents with nausea vomiting 2 days duration with associated abdomen pain.� Denies
fevers chills coughing sneezing shortness of breath..� Endorses weakness.� Vital signs stable.� Mild leukocytosis noted.� Labs noted mild hypokalemia severe hypomagnesemia likely due to chronic diarrhea exacerbated by nausea vomiting.� Mild
transaminitis bilirubin elevation nonsignificant.� CT abdomen pelvis notes signs of gastritis and fatty liver disease.
PLAN:
#Gastritis suspect viral versus acute exacerbation IBS resolved
#Severe hypomagnesemia likely due to GI losses
#Mild hypokalemia
Monitor replete electrolytes
diet advanced to Low residue, IVF completed
prn pain antiemetics
Continue home Protonix twice daily
monitor and replete electrolytes Mg Potassium Calcium as necessary
cont home prn HS ativan
PT/OT eval appreciated HH vs home no needs
GI eval appreciated carafate 1g QID, Questran daily, outpt GI follow up
#History anxiety disorder-seen by Psych and recommended SSRI-which patient has refused in the past.
#IBS-tolerated diet.
#Leukocytosis suspect stress reactive, resolved w/o abx
-resolved.
#Vitamin D deficiency
Supplementation started, cont
#B/l feet tenderness swelling erythema improved
capsaicin cream QID started, no benefit noted, discontinued
Feet b/l XR appreciated no acute fracture/dislocation, degenerative joint disease, soft tissue swelling L>R, improved from prior imaging
Outpt Podiatry follow up recommended
suspect b/l feet pain d/t nutritional deficiencies vs neuropathy vs arthritis
Multivitamin thiamine supplementation started
reports allergy to Gabapentin
oxycodone 5 mg Q6H
trial Cymbalta 20 mg HS started 12/14
dvt Lovenox
gi ppx Protonix
Full Code
PT/OT-home
Anticipated Discharge: Within 24 hours
Subjective/Interval History
-
Date of Service: December 16, 2023
finished breakfast and then complained of nausea
but looked comfortable
Objective Data
-
Labs:
Laboratory Results
12/16/23
08:11
WBC 5.9
Hgb 11.4 L
Hct 34.0 L
Plt Count 224 D
Sodium 133 L
Potassium 5.0
Chloride 103
Carbon Dioxide 23
BUN 21 H
Creatinine 0.8
Glucose 105 H
Calcium 10.1
Vital Signs:
Vital Signs
Temp Pulse Resp BP Pulse Ox
98.4 F 84 16 108/75 100
12/16/23 11:08 12/16/23 11:08 12/16/23 11:08 12/16/23 11:08 12/16/23 11:08
I&O
12/15/23 12/16/23 12/17/23
06:59 06:59 06:59
Intake Total 2260 / 2260 420 / 420
Balance 2260 / 2260 420 / 420
--- NOTE | 2023-12-16 13:32 | W.DCSUMMARY ---
Discharge Summary
Discharge Data
Date of Admission: 12/10/23
Date of Discharge: 12/16/23
-
Pending Results: No
Hospital Course
68 female history alcohol use disorder (endorses rarely drinking at this time, with last drink a week ago) anxiety IBS hiatal hernia chronic diarrhea hypertension presents with nausea vomiting 2 days duration with associated abdomen pain.��CT
abdomen pelvis notes signs of gastritis and fatty liver disease. Patient also with severe electrolyte abnormalities. Gastroenterology was consulted. Patient was started on Protonix twice daily. Patient was also on Carafate 1 g 4 times daily.
Patient diet was fully advanced. Patient IV fluid was eventually discontinued. Patient was tolerating low residue diet. Patient also with vitamin D deficiency and was started on p.o. supplementation. Patient was complaining of feet pain and
underwent x-ray which showed negative for fracture or dislocation, degenerative joint disease, soft tissue swelling left greater than right which has improved from prior imaging. Patient was started on Cymbalta. Patient was held by PT and OT.
Patient be discharged home with recommendation for outpatient GI follow-up.
Discharge Plan
-
Patient Disposition: Home (Routine Discharge)
Discharge Diagnosis/Procedures: Hypomagnesemia
Hypokalemia
Gastritis
Leukocytosis
Vitamin D deficiency
Bilateral foot pain
Condition: Fair
Diet: Low Residue
Activity: With assistance and As tolerated
Driving Restrictions: As prior to admission
Blood Work: cbc and bmp and magnesium level in 1 week via primary doctor.
Referrals:
Krysta Griffin MD [Active] - None
Ishaan Ames DO [Family Provider] - in less than 1 week
Prescriptions:
New
sucralfate 1 gram Tablet
1 g PO ACHS 30 Days Qty: 120 0RF
cholestyramine-aspartame [Cholestyramine Light] 4 gram Powder In Packet
4 g PO DAILY 30 Days Qty: 30 0RF
duloxetine 20 mg Capsule,Delayed Release(Dr/Ec)
20 mg PO HS 30 Days Qty: 30 0RF
cholecalciferol (vitamin D3) 25 mcg (1,000 unit) Tablet
25 mcg PO DAILY 30 Days Qty: 30 0RF
Continued
lorazepam [Ativan] 0.5 mg tablet
0.5 mg PO HSPRN PRN (Reason: sleep/anxiety) 5 Days Qty: 5 0RF
Rx Instructions:
12/10/23: filled #7 lorazepam 0.5mg tablets on 11/15/23 [facility] #[id number]
sumatriptan succinate [Imitrex] 50 mg tablet
50 mg PO ONCE
Rx Instructions:
Can repeat 50 mg dose 2 hours from last dose; max 200 mg/24 hrs; use for 2 days/week max
pantoprazole 40 mg tablet,delayed release (DR/EC)
40 mg PO BID
Discharge Orders:
Discharge Patient (As Directed); Ordered 12/16/23
Ordered By: Donovan Smith
[2023-12-16 15:55] VITALS: BP 104/72
== END 2023-12-16 16:52 | disposition home or self-care (01) | DRG 392 ==
LOC: 4 WEST ACU 17:14
PROVIDERS: ADMITTING PHYSICIAN Internal Medicine; ATTENDING PHYSICIAN Hospitalist; EMERGENCY PHYSICIAN Emergency Medicine; FAMILY PHYSICIAN Family Medicine
DX: K29.70 Gastritis, unspecified, without bleeding (principal); E83.42 Hypomagnesemia; I10 Essential (primary) hypertension; K21.9 Gastro-esophageal reflux disease without esophagitis; K44.9 Diaphragmatic hernia without obstruction or gangrene; R11.2 Nausea with vomiting, unspecified; D64.9 Anemia, unspecified; F10.10 Alcohol abuse, uncomplicated; E87.6 Hypokalemia; R74.01 Elevation of levels of liver transaminase levels; E83.51 Hypocalcemia; D72.829 Elevated white blood cell count, unspecified; F41.9 Anxiety disorder, unspecified; K58.9 Irritable bowel syndrome, unspecified; Z88.6 Allergy status to analgesic agent; Z88.2 Allergy status to sulfonamides; Z88.8 Allergy status to other drugs, medicaments and biological substances; Z87.891 Personal history of nicotine dependence; M79.671 Pain in right foot; M79.672 Pain in left foot
CPT/HCPCS: 73620; 74177; 80048; 80076; 82077; 82306; 82607; 82746; 83540; 83550; 83690; 83735; 84100; 84132; 84484; 85025; 85027; 93005; 96361; 96374; 96375; 97161; 97165; 99285; Q9967

== ENCOUNTER 2023-12-22 17:30 | Inpatient (IN) | payer MEDICARE, SELFPAY ==
[2023-12-22] VITALS (12 sets, daily range): BP systolic 110–155; BP diastolic 50–81; BMI 23.7; BMI 23.1
--- NOTE | 2023-12-22 13:23 | EDRN ---
this RN, and Romy FRANCES attempted to place a PIV and draw labs and were unsuccessful, IV team paged
--- NOTE | 2023-12-22 14:03 | EDRN ---
IV team at the pts bedside placing a midline
[2023-12-22] MEDS: ZOFRAN ODT (ORALLY DISINTEGRATING) 4 MG PO (14:05)
--- NOTE | 2023-12-22 14:05 | EDRN ---
zofran ODT was administered for c/o N/V, no PIV access at this time, awaiting for midline placement
--- NOTE | 2023-12-22 14:08 | ED.GENMED ---
History of Present Illness
General
Chief Complaint: Rectal Bleeding
Source: patient and records
Exam Limitations: none
Time Seen by Provider: 12/22/23 13:42
Nursing documentation reviewed up to this point in time: agreed with
Travel History
Have you had any contact with someone who has COVID-19?: No
Do you have any symptoms of coronavirus? Fever > 100 degrees, chills, cough, shortness of breath, sore throat, loss of taste or smell, muscle aches, or headache?: No
History of Present Illness
History of Present Illness:
68-year-old female presents emergency department complaining of nausea vomiting abdominal pain and rectal bleeding. Symptoms began yesterday. She is a history of similar, and was recently admitted for gastritis. She states she has not drank
alcohol for several days.
Past History
Past History
ED Past Medical History: Cancer (Skin Cancer face), GERD, HTN, Psychiatric (Aniety), Other (GI bleeding, HIatal hernia. Ulcers, anemia. ) and Other (recent colitis, severe esophagitis, alcohol abuse, benzodiazepine withdrawal)
ED Past Surgical History: Appendectomy, Cholecystectomy, Gynecological (hysterectomy, RUE epicondylitis X 2) and Orthopedic
Patient has exhibited threatening behavior?: No
PSI?: No
Social History
Tobacco: Former smoker
Alcohol: Occasional
Drug: None
Personal:
Living: alone
Family History
Family History: Other
Review of Systems
Review of Systems
Allergies reviewed?: Yes
All Other Systems: Not applicable
Constitutional: Reports no symptoms
EENT: Reports no symptoms
Respiratory: Reports no symptoms
Cardiac: Reports no symptoms
ABD/GI: Reports abdominal pain, nausea, vomiting and bloody stools
: Reports no symptoms
Musculoskeletal: Reports no symptoms
Skin: Reports no symptoms
Neurological: Reports no symptoms
Endocrine: Reports no symptoms
Hematologic/Lymphatic: Reports no symptoms
Psychiatric: Reports no symptoms
Phy Exam
Physical Exam
Physical Exam:
Physical Exam
General: Appears uncomfortable, afebrile
Neck: supple. no meningeal signs. normal posterior pharynx
Heart: s1/s2 regular rate and rhythm, no murmur. equal radial
pulses.
HEENT: Pupils equal round reactive to light, EOMI
Lungs: no acute respiratory distress. clear bilaterally
Abdomen: normal bowel sounds. not tender. no CVAT, rectal exam reveals guaiac positive brown stool
Neuro: alert and oriented. no focal neurological deficits cranial nerves II through XII intact
Skin: no rash
Psychiatric: well kept. interactive and cooperative
Extremities: no edema. no calf tenderness. negative homans. good distal pulses
Course
Orders/Labs/Results
Orders:
Orders
12/22/23 13:13
Cardiac Monitoring- Treatment ONCE
12/22/23 14:00
Ondansetron Orally Disint [Zofran Odt (Orally Disintegrating)] 4 mg .ROUTE .STK-MED ONE
12/22/23 14:04
Ondansetron Orally Disint [Zofran Odt (Orally Disintegrating)] 4 mg PO NOW STA
12/22/23 14:51
0.9% Sodium Chloride 1000 ml [Nss] 1,000 ml IV BOLUS
Pantoprazole 80 mg/100 ml Nss [Protonix] 80 mg in 100 ml IV NOW
Pantoprazole [Protonix IV] 80 mg IV NOW STA
12/22/23 15:03
Ondansetron Injectable [Zofran] 4 mg IV NOW STA
12/22/23 15:24
Alcohol Urgent
Complete Blood Count/With Diff Urgent
Comprehensive Metabolic Panel Urgent
Lipase Urgent
Comment: ADD
Magnesium Urgent
12/22/23 15:51
Lorazepam [Ativan] 1 mg IV NOW STA
12/22/23 15:55
Add On- LAB Urgent
Tests Added?: lipase
12/22/23 16:05
Venous Blood Gas Urgent
%Oxygen/Room Air: 100/Ra
12/22/23 16:28
Morphine Sulfate 4 mg IV NOW STA
12/22/23 16:38
CT Abd/pel Without Iv Or Oral Urgent
Comment:
Reason For Exam: vomiting, abd pain
12/22/23 17:15
Admit/Transfer Patient As Directed
Co-Sign Provider:
Level of Care: Inpatient admission
Assign to:: Telemetry
Physician / Group: april/hospitalist
Diagnosis: acidosis/N/V.
Reason for Telemetry: Chest Pain syndromes
Date to Stop Telemetry: 12/24/23
Time to Stop Telemetry: 11:00
Reason for Hospitalization: acidosis/hypomag/chest pain
Expected length of stay greater than two midnights?: Yes
ELOS- Estimated Length of Stay in days: 5
I certify the patient meets the requirements for IP care: Yes
12/22/23 17:16
Code Status As Directed
Resuscitation Status: Full Code
12/22/23 17:53
Lactate Level [Lactic Acid] Q6H
12/22/23 20:56
Acetaminophen [Tylenol] 650 mg PO Q4HPRN PRN
12/22/23 20:56
Urinalysis Routine
Date Specimen was Collected: 12/23/23
Time Specimen was Collected: 01:29
Urine Drug Abuse Screen Routine
Date Specimen was Collected: 12/23/23
Time Specimen was Collected: 01:29
Activity As Directed
Activity Level: Out of Bed-Early Mobility
MSAS SCORE As Directed
MSAS Score 0-4: Repeat MSAS every 2 hours until 0-4 for three consecutive assessments, then every 4 hours x 48
hours.
MSAS Score 5-7: For MILD withdrawl symptoms. Repeat MSAS and RASS every 2 hours
MSAS Score 8-11: For MODERATE withdrawal symptoms. Repeat MSAS and RASS every 1 hour. Consider ICU or IMU
level of care.
MSAS Score > 11: For SEVERE withdrawal symptoms. Repeat MSAS and RASS every 1 hour. Notify provider, consider
ICU level of care.
MSAS Additional Instructions: If no improvement or no decrease in score from severe to moderate within 12
hours, consult psychiatry
MSAS Notify Provider: Notify provider if patient requires more than 10 mg of Lorazepam in eight hour period.
Pneumatic Compression Sleeves As Directed
Type: Knee high
Vital Signs As Directed
Frequency: Per unit guidelines
DX Deep Vein Thrombosis Video Routine
12/22/23 22:00
Sucralfate [Carafate] 1 gram PO ACHS
12/22/23 22:03
B-Hydroxybutyrate Urgent
GGTP Urgent
Lactate Level [Lactic Acid] Q6H
Troponin I Q6H
12/23/23 00:00
Thiamine Injection 200 mg IV Q8
12/23/23 03:43
Basic Metabolic Panel IN AM
Complete Blood Count/With Diff IN AM
Magnesium IN AM
Troponin I Q6H
12/23/23 08:00
Cholecalciferol (Vitamin D3) [VITAMIN D3 (cholecalciferol)] 125 mcg PO DAILY
Duloxetine Delayed Release [Cymbalta Delayed Release] 20 mg PO DAILY
12/23/23 09:00
Troponin I Q6H
12/24/23 11:00
DC Protocol for Telemetry ONCE
12/25/23 20:00
Thiamine HCl [Vitamin B1] 100 mg PO BID
Abnormal Lab Results
12/22/23 12/22/23
15:24 16:05
WBC 17.0 H 10^3/uL
(4.8-10.8)
RBC 3.65 L 10^6/uL
(4.20-5.40)
Hct 36.8 L %
(37.0-47.0)
MCV 100.8 H fL
(81.0-99.0)
MCH 32.9 H pg
(27.0-31.0)
MCHC 32.6 L g/dL
(33.0-37.0)
RDW 16.1 H %
(11.5-14.5)
Plt Count 491 H D 10^3/uL
(130-400)
Abs Immat Gran (auto) 0.5 H 10^3/uL
(0-0.05)
Absolute Neuts (auto) 14.0 H 10^3/uL
(1.4-6.5)
Absolute Monos (auto) 0.9 H 10^3/uL
(0.1-0.6)
Immature Gran % 2.7 H %
(0-0.5)
Neutrophils % 82.6 H %
(42.2-75.2)
Lymphocytes % 8.5 L %
(20.5-51.1)
VBG pH 7.13 L*
(7.32-7.43)
VBG pCO2 28 L mmHg
(35-48)
VBG pO2 89 H mmHg
(30-50)
VBG HCO3 9.3 L mmol/L
(22-27)
Sodium 133 L mmol/L
(135-145)
Chloride 96 L mmol/L
(98-107)
Carbon Dioxide < 5 L* mmol/L
(22-30)
BUN 25 H mg/dl
(7-17)
Creatinine 1.5 H mg/dL
(0.6-1.0)
Glucose 68 L mg/dl
(70-99)
Magnesium 1.5 L mg/dl
(1.6-2.3)
AST 70 H U/L
(14-36)
ALT 38 H U/L
(0-35)
Alkaline Phosphatase 141 H U/L
(38-126)
Albumin 5.2 H g/dl
(3.5-5.0)
12/22/23 15:24
12/22/23 15:24
Vital Signs
Initial and Last Documented VS:
Initial Vital Signs
Pulse Resp BP Pulse Ox
111 24 155/77 98
12/22/23 13:10 12/22/23 13:10 12/22/23 13:10 12/22/23 13:10
Last Documented Vital Signs
Temp Pulse Resp BP Pulse Ox
97.9 F 92 18 145/84 94
12/24/23 19:45 12/24/23 19:45 12/24/23 19:45 12/24/23 19:45 12/24/23 19:45
*Radiology
Radiology exam reviewed: radiology read reviewed (CT abdomen pelvis consistent with moderate pancolitis)
*Pulse Oximetry
Patient hypoxic: no
*Otr Flatbed Driver Interpretation
Rate: normal
Interpretation: normal
Heart Rate: 88
Rhythm: sinus
*Critical Care Note
Total Time (30-74mins, 75-104mins- exclusive of procedures): 30
comment:
Critical care statement: A total of 30 minutes of critical care time was provided for this patient. This includes management of unstable vital signs, evaluation of the patient at bedside, reviewing the patient's pertinent medical records, discussion
with consultants, review of old EKGs and review of pertinent medical records. This time with separate from time utilized to perform the aforementioned documented procedures
Data Reviewed
Review of Other/Old Records Reveals: Labs (Prior creatinine 0.8, prior bicarbonate 23 on 12/16/2023)
Source: records and previous hospital records
Patient Management
Social determinants of health affecting care: Living situation and Substance abuse (Chronic alcoholic)
Discussion with other providers: Hospitalist
Escalation/DeEscalation of care consider admission/obs:
Admit indicated
ED Attending Note
-
Portions of this chart may have been created with voice recognition software.� Occasional wrong word or��sound alike� substitutions may have occurred due to the inherent limitations of voice recognition software.
Discharge Plan
Departure
Patient Disposition: Admit
Date of Disposition: 12/22/23
Time of Disposition: 16:34
Admit to: IMU
Presentation/result/management discussed w/ accepting MD/DO: Hospitalist
Patient with high blood pressure during this ER visit?: Yes
Condition: Fair
Discharge Problem:
Intractable vomiting, Metabolic acidosis, Alcohol withdrawal, Acute renal failure
Interventions
Interventions:
*Risk Screen - Suicide Last Done: 12/22/23 13:23
*General Assessment Last Done: 12/22/23 13:23
*Neglect/Abuse Screening Last Done: 12/22/23 13:23
ED- Fall Risk Assessment Last Done: 12/22/23 13:23
*ED COVID-19 Vaccine History Last Done: 12/22/23 22:17
*Nursing Disposition Last Done: 12/22/23 20:50
VM-Pmrivn-Qcfxzhagok Assessment Last Done: 12/22/23 13:23
ED- Cardiac Assessment Last Done: 12/22/23 13:23
ED- Pulmonary Assessment Last Done: 12/22/23 13:23
Discharge Date and Time
Discharge Date/Time: 12/22/23 21:03
--- NOTE | 2023-12-22 14:39 | EDRN ---
IV team currently still at the pts bedside attempting to place a midline
[2023-12-22] MEDS: ZOFRAN 4 MG IV (15:08)
[2023-12-22] MEDS: PROTONIX 100 IV (15:09)
[2023-12-22] MEDS: PROTONIX IV 80 MG IV (15:09)
--- NOTE | 2023-12-22 15:15 | EDRN ---
LUE midline was placed by IV team, this RN administered IVF Bolus, IV zofran, and IV protonix bolus and Protonix gtt running at 8mg/hour, the pt is resting in stretcher in the lowest position, side rails up x2, call campos within reach, HOB elevated,
VS WNL, will continue to monitor the pt closely
[2023-12-22] MEDS: NSS 1000 IV (15:16)
--- NOTE | 2023-12-22 15:17 | PHANOTE ---
Addendum entered by Aisha Segovia 12/22/23 16:19:
spoke to patient again, feel better. patient said she not taking nothing beside Nexium and lorazepam but patient recently filled Carafate 1g achs, cholestyramine 4g packets daily, Cymbalta 20 daily and Pepcid 40mg daily but denies talking them
Original Note:
med rec note- patient unwell to go over med list at moment will try later when patient is medicated
--- NOTE | 2023-12-22 15:30 | EDRN ---
the pt pressed the call campos and this RN entered the pts room, the pt stated to this RN, 'I need something to drink please, i am dying of thirst', at this time the pt was dry heaving, this RN notified Dr. Seaman and per the provider the pt is to
have nothing by mouth currently, the pt stated, 'Well i need something, i am getting agitated, i need something to help me calm down', this RN notified provider, awaiting orders, will continue to monitor the pt closely
[2023-12-22 15:33] LABS: % Immature Granulocytes 2.7 % (0-0.5); % Lymphocytes 8.5 % (20.5-51.1); % Monocytes 5.2 % (1.7-9.3); % Neutrophils 82.6 % (42.2-75.2); Absolute Basophils 0.2 10^3/uL (0-0.2); Absolute Immature Granulocytes 0.5 10^3/uL (0-0.05); Absolute Lymphocytes 1.5 10^3/uL (1.2-3.4); Absolute Monocytes 0.9 10^3/uL (0.1-0.6); Hematocrit 36.8 % (37.0-47.0); Mean Corp Hgb Conc. 32.6 g/dL (33.0-37.0); Mean Corpuscular Hgb 32.9 pg (27.0-31.0); Mean Corpuscular Volume 100.8 fL (81.0-99.0); Nucleated Red Blood Cells % 0 %; Red Blood Cell Count 3.65 10^6/uL (4.20-5.40); Red Cell Dist. Width 16.1 % (11.5-14.5)
--- NOTE | 2023-12-22 15:45 | EDRN ---
the pt pressed the call campos and this RN entered the pts room, the pt stated to this RN, 'What are you going to do for me, i don't feel well, i need fluids', this RN notified the pt that she is currently getting IVF and that the provider and this RN
are doing what they can to help the pt, this RN notified Dr. Seaman that the pt is agitated, will continue to monitor the pt closely
[2023-12-22 15:49] LABS: ALT (SGPT) 38 U/L (0-35); AST (SGOT) 70 U/L (14-36); Albumin 5.2 g/dl (3.5-5.0); Alcohol 33 mg/dl; Alkaline Phosphatase 141 U/L (38-126); Blood Urea Nitrogen 25 mg/dl (7-17); Calcium 9.4 mg/dl (8.4-10.2); Carbon Dioxide < 5 mmol/L (22-30); Chloride 96 mmol/L (98-107); Estimated Creatinine Clearance 31 ml/min; Glucose 68 mg/dl (70-99); Magnesium 1.5 mg/dl (1.6-2.3); Potassium 5.1 mmol/L (3.5-5.1); Sodium 133 mmol/L (135-145); Total Bilirubin 0.8 mg/dl (0.2-1.3); Total Protein 7.8 g/dl (6.3-8.2); eGFR 37.26
[2023-12-22 15:52] LABS: Platelet Count 491 10^3/uL (130-400)
[2023-12-22] MEDS: ATIVAN 1 MG IV (16:03)
--- NOTE | 2023-12-22 16:05 | EDRN ---
this RN administered Ativan to the pt for agitation, the pt is resting in stretcher in the lowest position, side rails up x2, call campos within reach, HOB elevated, no s/s of distress, VS WNL, the pt is currently still asking for silvia nava or water
and per the provider the pt is not to have anything by mouth due to the multiple episodes of vomiting the pt had earlier
[2023-12-22 16:14] LABS: Lipase 46 U/L (23-300)
[2023-12-22 16:37] LABS: Venous Blood Gas B.E. -18.5 mmol/L (-4 to +4); Venous Blood Gas HCO3 9.3 mmol/L (22-27); Venous Blood Gas O2 Sat % 96.4 %; Venous Blood Gas pCO2 28 mmHg (35-48); Venous Blood Gas pO2 89 mmHg (30-50)
[2023-12-22 16:38] LABS: Venous Blood Gas pH 7.13 (7.32-7.43)
[2023-12-22 16:53] LABS: Glucose - Point of Care 78 mg/dl (70-99)
--- NOTE | 2023-12-22 16:58 | HPS.HSE ---
Addendum entered and electronically signed by Donovan Smith MD 12/22/23 18:23:
CT abdomen pelvis with mild to moderate pancolitis.
Started on Unasyn
If with diarrhea check stool studies
De-escalate diet to n.p.o. with sips only.
Original Note:
Family Physician
-
Family Physician: Ishaan Ames
Chief Complaint
-
nausea and vomiting
History of Present Illness
68-year-old female with extensive past medical history presenting nausea and vomiting. Patient with right upper quadrant abdominal pain. States last meal was 2 days ago. States of biliary colic vomitus. Denies any fevers or chills. Of note
patient was just discharged earlier in the week. Patient states she did not drink alcohol. However alcohol level was 33 on admission. Of note patient with multiple admissions in the past for similar situation. Patient states of brown-colored
bowel movement. States that mild blood upon wiping on toilet paper. No moe bright red blood per the rectum. Denies blood in vomitus. States feeling weak.
Medical History
Past Medical History
Past Medical History: Reports Other
Additional Past Medical History:
alcohol use disorder (Last drink couple of weeks ago)
anxiety IBS hiatal hernia chronic diarrhea hypertension
Past Surgical History: Reports Other
Additional Past Surgical History:
Cholecystectomy and Gynocological
Social History
Alcohol: Occasional
Family History
Family History: Not pertinent
Allergies / Home Medications
Allergies reflects when Allergies were last updated in [facility].
Home Medications with original date entered in [facility]
Allergy/Medication List:
Allergies
Allergy/AdvReac Type Severity Reaction Status Date / Time
aspirin Allergy Unknown Verified 12/10/23 11:05
gabapentin Allergy Unknown Verified 12/10/23 11:05
NSAIDS (Non-Steroidal Allergy Unknown Verified 12/10/23 11:05
Anti-Inflamma
Gflpzyh-[id number] Reductase Allergy Swelling Verified 12/10/23 11:05
Inhibitor
Sulfa (Sulfonamide Allergy Unknown Verified 12/10/23 11:05
Antibiotics)
Home Medications
esomeprazole magnesium 20 mg capsule,delayed release (Nexium) 20 mg PO TID 12/22/23
lorazepam 0.5 mg tablet (Ativan) 0.5 mg PO BID 12/22/23
sumatriptan succinate 50 mg tablet (Imitrex) 0 mg PO .COMPLEX 12/22/23
Review of Systems
-
History Source: Patient
A 12 point ROS was completed and negative except as noted: Yes
Physical Exam
Vital Signs
Vital Signs
Pulse Resp BP Pulse Ox
109 19 121/60 99
12/22/23 16:15 12/22/23 16:15 12/22/23 16:00 12/22/23 16:15
Physical Exam
General: Well Developed, Well Nourished, No Apparent Distress and Appears Chronically Ill
HEENT: NormoCephalic, Moist mucous membranes and Atraumatic
Respiratory: Clear
Cardiac: S1/S2 and Regular Rhythm; No Murmur or Rub
GI: Soft, Non Distended, Normal Bowel Sounds and Tender (RUQ/RLQ ); No Organomegaly
Rectal: Deferred by Provider
Musculoskeletal: No Clubbing, No Cyanosis and No Edema
Skin: No Rash
Neuro: Awake, Alert, Oriented, AO x 3, No Motor Deficits and Nonfocal/grossly intact
Psych: Calm
Laboratory Results
-
12/22/23 15:24
12/22/23 15:24
Laboratory Results
Total Bilirubin 0.8 mg/dl (0.2-1.3) 12/22/23 15:24
AST 70 U/L (14-36) H 12/22/23 15:24
ALT 38 U/L (0-35) H 12/22/23 15:24
Alkaline Phosphatase 141 U/L (38-126) H 12/22/23 15:24
Lipase 46 U/L (23-300) 12/22/23 15:24
Impression/Plan
-
#Nausea and vomiting
#Gastritis
CT abdomen pelvis is pending
Patient was discharged on Carafate which does not once again seems to be her medication list
Will restart patient on Carafate 1 g 4 times daily
Continue with PPI. Patient hemoglobin elevated compared to prior. ER heme test brown stool with guaiac positive. Clear liquid for now. Patient states of mild blood on toilet paper. Brown stools at home.
If further drop in hemoglobin or moe luminal bleeding will consult GI.
# Severe anion gap metabolic acidosis
# Acute kidney injury likely secondary dehydration
# Suspected alcohol starvation ketosis
Start patient on bicarbonate drip
Check urinalysis
Check lacti acid
Trend BMP
# Hypomagnesemia
Replete and monitor
#Chest pain likely secondary to nausea vomiting versus musculoskeletal versus rule out ACS
Trend troponin for now
#Alcohol abuse
# Transaminitis ?(AST>>ALT) likely in setting of alcohol
Start patient on withdrawal protocol for safety has a history and with elevated numbers on admission
Patient states she has not drank alcohol for some time. Alcohol level 33 on admission.
#Vitamin D deficiency
Continue with vitamin D supplementation
#IBS
CT abdomen pelvis ordered pending
If diarrhea check stool studies
Once nausea vomiting improved start patient on Questran
#Bilateral foot pain
No swelling erythema
No open wounds noted
Patient was recently started on Cymbalta which does not seem to be on her home medication list
Continue with Cymbalta 20 mg nightly
#History of cholecystectomy status post chronically dilated CBD
History of anxiety disorder
DVT ppx-scds in setting of suspected bleeding
I spent a total of 85 minutes with the patient or on the floor. More than 50% of this time involved counseling and coordination of care.
--- NOTE | 2023-12-22 17:37 | EDRN ---
the pt was received from CT scan, this RN entered the pts room and placed the pt on the monitor, VS WNL, no s/s of distress, Protonix gtt currently still running via LUE Midline, the pt keeps asking this RN for something to drink, per provider that
this RN reached out to Dr. Smith the pt is to be NPO, this RN notified the pt
[2023-12-22 18:14] LABS: Lactic Acid 2.1 mmol/L (0.7-2.0)
--- NOTE | 2023-12-22 18:43 | EDRN ---
the pt has a midline and is receiving protonix, protonix is not compatible with IVF and magnesium that the provider wants administered, this RN reached out to IV team and IV team and this RN was unable to place a second PIV, this RN spoke to IV team
about possibilities for access for the pt, this RN also spoke to Dr. Smith and per Dr. Smith the provider wants a PICC placed, this RN called IV team and they are coming to place a PICC line, the pt also pressed the call campos and this RN entered
the pts room, the pt stated to this RN, 'I am still nauseous and dry heaving i want something to drink and i want something for nausea', this RN spoke with Dr. Smith and per provider the pt is to have nothing by mouth currently and this RN will
wait for orders, the pt is resting in stretcher in the lowest position, side rails up x2, call campos within reach, HOB elevated, no s/s of distress, VS WNL, will continue to monitor the pt closely
--- NOTE | 2023-12-22 19:09 | EDRN ---
IV team currently still at the pts bedside attempting to place DL PICC
--- NOTE | 2023-12-22 19:22 | EDRN ---
IV team currently still at the pts bedside working on placing a PICC line
[2023-12-22] MEDS: SODIUM BICARBONATE 1150 MEQ IV (19:39)
[2023-12-22] MEDS: MAGNESIUM SULFATE 100 IV (20:11)
[2023-12-22] MEDS: UNASYN IV (20:25)
[2023-12-22] MEDS: CARAFATE 1 GRAM PO (22:15)
[2023-12-22] MEDS: TYLENOL 650 MG PO (22:15)
[2023-12-22 22:26] LABS: GGTP 109 U/L (12-43); Lactic Acid 1.8 mmol/L (0.7-2.0)
[2023-12-22 22:40] LABS: Troponin I < 0.012 ng/ml
[2023-12-22 23:12] LABS: B-Hydroxybutyrate > 9.0 mmol/L (0.02-0.27)
[2023-12-22] MEDS: ATIVAN 0.5 MG PO (23:20)
[2023-12-22] MEDS: DILAUDID 0.25 MG IV (23:22)
[2023-12-22] MEDS: THIAMINE INJECTION 200 MG IV (23:23)
--- NOTE | 2023-12-22 23:30 | PTCARENOTE ---
Received patient from ED via stretcher. Patient pulled over from stretcher to bed. Patient complaining of an 8/10 pain in her chest - which she states she has 'had for the past few days'. Also complaining of pain throughout abdomen and right ankle.
EKG showing NSR. FILTER TANK OPERATOR made aware, prn IV dilaudid ordered and given to patient. Patient is AAOx3, anxious. Oriented patient to room and call campos within reach.
[2023-12-23 00:28] LABS: INR 1.05; PT 13.6 Sec (11.4-14.6)
[2023-12-23] MEDS: UNASYN IV ×4 (01:16→19:44)
[2023-12-23] MEDS: ZOFRAN 4 MG IV ×3 (01:46→17:53)
[2023-12-23 01:52] LABS: Urine Albumin Trace (Neg - Trace); Urine Bilirubin Negative (Negative); Urine Character Clear (Clear); Urine Color Yellow; Urine Glucose Negative (Negative); Urine Ketone 3+ (Negative); Urine Leukocyte Negative (Negative); Urine Nitrite Negative (Negative); Urine Occult Blood Negative (Negative); Urine Urobilinogen Negative (Neg - 1+)
[2023-12-23 02:06] LABS: Amphetamines Negative (Negative); Barbiturates Negative (Negative); Benzodiazepines Positive (Negative); Buprenorphine Negative (Negative); Cocaine Negative (Negative); Marijuana Negative (Negative); Methadone Negative (Negative); Methamphetamines Negative (Negative); Opiates Negative (Negative); Phencyclidine Negative (Negative); Tricyclic Antidepressants Negative (Negative)
[2023-12-23 02:14] LABS: Fentanyl, Urine Negative (Negative)
[2023-12-23 03:52] VITALS: BP 99/56
[2023-12-23 04:13] LABS: % Basophils 0.5 % (0-2); % Eosinophils 0.2 % (0-6); % Immature Granulocytes 0.4 % (0-0.5); % Monocytes 11.1 % (1.7-9.3); % Neutrophils 71.8 % (42.2-75.2); Absolute Basophils 0.1 10^3/uL (0-0.2); Absolute Lymphocytes 1.7 10^3/uL (1.2-3.4); Absolute Monocytes 1.2 10^3/uL (0.1-0.6); Absolute Neutrophils 7.5 10^3/uL (1.4-6.5); Hematocrit 27.2 % (37.0-47.0); Hemoglobin 9.2 g/dL (12.0-16.0); Mean Corp Hgb Conc. 33.8 g/dL (33.0-37.0); Mean Corpuscular Volume 97.5 fL (81.0-99.0); Mean Platelet Volume 9.9 fL (7.4-10.4); Nucleated Red Blood Cells % 0 %; Platelet Count 339 10^3/uL (130-400); Red Blood Cell Count 2.79 10^6/uL (4.20-5.40); Red Cell Dist. Width 15.9 % (11.5-14.5); White Blood Cell Count 10.4 10^3/uL (4.8-10.8)
[2023-12-23 04:38] LABS: Blood Urea Nitrogen 23 mg/dl (7-17); Calcium 8.5 mg/dl (8.4-10.2); Carbon Dioxide 21 mmol/L (22-30); Chloride 96 mmol/L (98-107); Estimated Creatinine Clearance 39 ml/min; Glucose 106 mg/dl (70-99); Magnesium 3.1 mg/dl (1.6-2.3); Potassium 4.7 mmol/L (3.5-5.1); Sodium 131 mmol/L (135-145); Troponin I 0.021 ng/ml
[2023-12-23 07:34] VITALS: BP 111/61
[2023-12-23] MEDS: DILAUDID 0.25 MG IV ×4 (08:53→22:06)
[2023-12-23] MEDS: SODIUM BICARBONATE 1150 MEQ IV (08:57)
[2023-12-23] MEDS: VITAMIN D3 (cholecalciferol) 125 MCG PO (08:58)
[2023-12-23] MEDS: FOLVITE 1 MG PO (08:58)
[2023-12-23] MEDS: CARAFATE 1 GRAM PO ×4 (08:58→21:59)
[2023-12-23] MEDS: CYMBALTA DELAYED RELEASE 20 MG PO (08:58)
[2023-12-23] MEDS: THIAMINE INJECTION 200 MG IV ×3 (08:59→23:10)
[2023-12-23 09:51] LABS: Troponin I 0.014 ng/ml
[2023-12-23] MEDS: ATIVAN 0.5 MG PO ×2 (11:32→19:42)
[2023-12-23 11:55] VITALS: BP 118/64
[2023-12-23 13:42] VITALS: BMI 23.1
--- NOTE | 2023-12-23 14:40 | W.PN.HOSP.TC ---
Today's Communication/Plan
-
Clear liquid diet
DC bicarbonate drip-continue with normal saline IV fluids
Colchicine trial
GI consult
Assessment / Plan
Assessment / Plan
# Acute pancolitis-patient's presents with nausea, abdominal discomfort and some loose stools. She was recently here for gastritis/gastroenteritis and was discharged home 4 days ago. Abdomen soft but has some discomfort. Leukocytosis noted.
Unclear etiology for colitis. Continue with empirical antibiotics. Consult GI. Keep on clears. Continue with antiemetics.
cw Carafate 1 g 4 times daily
Continue with PPI.
ER heme test brown stool with guaiac positive. Clear liquid for now. Patient states of mild blood on toilet paper. Brown stools at home.
# Severe anion gap metabolic acidosis suspect possibly starvation/alcohol ketoacidosis and diarrhea/nausea vomiting
# Acute kidney injury likely secondary dehydration
# Suspected alcohol starvation ketosis
Improved acidosis-DC bicarbonate drip.
Lactic acid normal.
Trend BMP
#Anemia-drop in H&H noted suspect dilutional. Continue to monitor
# Hypomagnesemia
Repleted
#Chest pain likely secondary to GI symptoms. Troponins negative. EKG no acute ST-T changes
DC telemetry
#Alcohol abuse
# Transaminitis ?(AST>>ALT) likely in setting of alcohol
Continue withdrawal protocol for safety has a history and with elevated numbers on admission
Patient states she has not drank alcohol for some time. Alcohol level 33 on admission.
#Right ankle pain-difficult to weight-bear. Recent x-rays were negative. No trauma. With alcoholism, dehydration will need to consider gout/pseudogout. Trial of colchicine will be started. Check uric acid.
#Vitamin D deficiency
Continue with vitamin D supplementation
#IBS
CT abdomen pelvis ordered pending
If diarrhea check stool studies
Once nausea vomiting improved start patient on Questran
#Bilateral foot pain
No swelling erythema
No open wounds noted
Patient was recently started on Cymbalta which does not seem to be on her home medication list
Continue with Cymbalta 20 mg nightly
#History of cholecystectomy status post chronically dilated CBD
History of anxiety disorder
DVT ppx-scds in setting of suspected bleeding
Total time spent on today's encounter was 52 minutes which included time spent in counseling the patient/family regarding diagnosis and treatment plan as listed above, goals of care, and symptom management. Case was discussed with nursing staff,
specialists, and care coordinators/case management. All labs and imaging personally reviewed by me. Remainder the time spent in detailed review of previous records, lab data, imaging, and other medical provider documentation.
Anticipated Discharge: > 48 hours
Subjective/Interval History
-
Date of Service: December 23, 2023
Ongoing mild abdominal discomfort which is generalized. She also feels nauseous. But she likes to try some silvia nava. Feeling thirsty.
She had 3 loose bowel movements today. She had no diarrhea when she left the hospital 4 days ago.
She continues to complain of right ankle pain and it is difficult to ambulate. No swelling or no trauma.
Objective Data
-
Labs:
Laboratory Results
12/23/23
03:43
WBC 10.4
Hgb 9.2 L D
Hct 27.2 L
Plt Count 339 D
Sodium 131 L
Potassium 4.7
Chloride 96 L
Carbon Dioxide 21 L
BUN 23 H
Creatinine 1.2 H
Glucose 106 H
Calcium 8.5
Vital Signs:
Vital Signs
Temp Pulse Resp BP Pulse Ox
98.1 F 86 20 118/64 94
12/23/23 11:55 12/23/23 11:55 12/23/23 11:55 12/23/23 11:55 12/23/23 11:55
I&O
0312/23/23 12/24/23
06:59 06:59 06:59
Output Total 400 / 400
Balance -400 / -400
Review of Systems
-
Constitutional: Denies Fever
Respiratory: Denies Trouble Breathing
Cardiac: Reports Chest Pain (along with abdo pain); Denies Palpitations
Neuro: Denies Dizzy
Physical Exam
-
General: No Apparent Distress
HEENT: Moist Mucous Membranes
Respiratory: Clear to Auscultation
Cardiac: Regular Rhythm and S1/S2
GI: Soft, Nondistended, Normal Bowel Sounds and Tender (general discomfort but no rebound/guarding/rigidity)
Musculoskeletal: Other (Painful ROM rt ankle with mild tendernss on joint line ;some in rt MTP joint too ; no swelling in either joints)
Neuro: AO x 3
Data Reviewed
-
Labs: Labs Reviewed by me
[2023-12-23] MEDS: NSS 1000 IV (15:17)
--- NOTE | 2023-12-23 15:17 | CM ---
CM met with pt bedside
Pt resides with her friend/Keira in a 1[facility]
Pt notes independence with her ADLs with use of a WW
Pt has hx at [facility] and frequent admissions to
PCP- Ishaan Ames
Rx- Jenn
CM consult for D/A
Pt denied [facility] referral
CM will continue to follow pt for dc planning
Discharge Disposition- home, follow for needs
[2023-12-23] MEDS: COLCHICINE 0.599999999999999978 MG PO (15:18)
[2023-12-23 15:55] VITALS: BP 127/78
--- NOTE | 2023-12-23 15:55 | CON.GI ---
Addendum entered and electronically signed by Park Masterson MD 12/23/23 17:35:
I saw and examined the patient.
The PAYROLL MASTER or PA's note was reviewed and I agree with the note.
Comment:
Pt with gerd, htn, n/v/abd pain. Multiple hospital visits for same thing. She was drinking alcohol and eating spicy food prior. Also dysuria. now some loose stool. ct with pancolitis. known erosive esophagitis
abd soft, nontendder
impression
esophagitis hx with gerd
n/v/abd pain
diarrhea
plan;
IV PPI
antiemetics
stool studies
cholestryamine
carafate
alcohol abstinence
Original Note:
Consultation
-
Date/Time Consultation Requested: 12/23/23 1438
Date/Time Consultation Performed: 12/23/23 1533
Requesting Provider: Dr. Del Angel
Performing Provider: Dr. Masterson/NIDHI Child
Reason for Consultation: n/V/D, colitis on CT
Medical History
Chief Complaint / HPI
Chief Complaint: Nausea/vomiting
History of Present Illness:
68-year-old female with history of Alcohol abuse, GERD with hiatal hernia, hypertension admitted with nausea/vomiting/abdominal pain for 2 days. Multiple prior hospitalization with similar symptoms in the past with most recent DC on 12/16/23.
Patient states that she did get her medications filled upon DC but did not open the bag so she does not know what is in there. She did not resume any meds that she was on or supposed to take. She did make herself 2 bloody Ivette's that were 'hot and
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 She states that she developed nausea and vomiting. She
vomited and had epigastric burning. She also had diarrhea starting that day. She states that the diarrhea burned. She also had urinary burning she had abdominal discomfort mostly on the right side. She states that she was laying mostly on the
couch and felt unwell. And at that point she decided she should probably come to the emergency room. On admission noted to have elevated WBC 17.0, this came down to 10.4. She had a significant metabolic acidosis with a bicarb less than 5. Her
venous blood gas showed a pH of 7.13Sodium was 133, potassium 5.1, chloride 96, BUN 25, creatinine 1.5, glucose 68, lactic acid 2.1 now down to 1.8, magnesium 1.5 it is now 3.1, total bilirubin 0.8, AST 70, ALT 38, alk phos 141, lipase 46. Troponin
initially less than 0.012 then 0.021 and then 0.014. Patient's alcohol level was [address] of the abdomen and pelvis without IV or oral contrast showed findings suspicious for a mild to moderate pancolitis. Patient had not had a bowel
movement from arrival until just now. Unfortunately the patient did not know she had a bowel movement therefore specimen was unable to be collected.
Past Medical History
Past Medical History: Other (see above )
Past Surgical History: Appendectomy and Cholecystectomy
Social History
Tobacco: Former Smoker
Alcohol: Daily
Drug: None
Personal: Single
Living: With Roomate
Family History
Family History: Other (No family history of gastrointestinal malignancy or IBD)
Allergies / Home Medications
Allergy/AdvReac Type Severity Reaction Status Date / Time
aspirin Allergy Unknown Verified 12/10/23 11:05
gabapentin Allergy Unknown Verified 12/10/23 11:05
NSAIDS (Non-Steroidal Allergy Unknown Verified 12/10/23 11:05
Anti-Inflamma
Kepaiqv-WGD-[id number] Reductase Allergy Swelling Verified 12/10/23 11:05
Inhibitor
Sulfa (Sulfonamide Allergy Unknown Verified 12/10/23 11:05
Antibiotics)
�Medication �Instructions �Recorded
esomeprazole magnesium 20 mg 20 mg PO TID 12/22/23
capsule,delayed release (Nexium)
lorazepam 0.5 mg tablet (Ativan) 0.5 mg PO BID 12/22/23
sumatriptan succinate 50 mg tablet 0 mg PO .COMPLEX 12/22/23
(Imitrex)
Review of Systems
-
All other systems: A 12 pt ROS was Negative except as stated above in HPI
Vital Signs
Temp Pulse Resp BP Pulse Ox
98.1 F 86 20 118/64 94
12/23/23 11:55 12/23/23 11:55 12/23/23 11:55 12/23/23 11:55 12/23/23 11:55
Physical Exam
Exam
General: No Apparent Distress
HEENT: Normocephalic
Respiratory: Clear (anterior)
Cardiac: Regular Rhythm
GI: Soft, Non Tender, Non Distended and Normal Bowel Sounds
Skin: Warm and Dry
Neuro: Awake, Alert and AO x 3
Psych: Calm
Results
WBC 10.4 10^3/uL (4.8-10.8) 12/23/23 03:43
Hgb 9.2 g/dL (12.0-16.0) L D 12/23/23 03:43
Hct 27.2 % (37.0-47.0) L 12/23/23 03:43
MCV 97.5 fL (81.0-99.0) 12/23/23 03:43
Plt Count 339 10^3/uL (130-400) D 12/23/23 03:43
Absolute Neuts (auto) 7.5 10^3/uL (1.4-6.5) H 12/23/23 03:43
PT 13.6 Sec (11.4-14.6) 12/23/23 00:10
INR 1.05 12/23/23 00:10
Sodium 131 mmol/L (135-145) L 12/23/23 03:43
Potassium 4.7 mmol/L (3.5-5.1) 12/23/23 03:43
Chloride 96 mmol/L (98-107) L 12/23/23 03:43
Carbon Dioxide 21 mmol/L (22-30) L 12/23/23 03:43
BUN 23 mg/dl (7-17) H 12/23/23 03:43
Creatinine 1.2 mg/dL (0.6-1.0) H 12/23/23 03:43
Calcium 8.5 mg/dl (8.4-10.2) 12/23/23 03:43
Total Bilirubin 0.8 mg/dl (0.2-1.3) 12/22/23 15:24
AST 70 U/L (14-36) H 12/22/23 15:24
ALT 38 U/L (0-35) H 12/22/23 15:24
Alkaline Phosphatase 141 U/L (38-126) H 12/22/23 15:24
Lipase 46 U/L (23-300) 12/22/23 15:24
Diagnostic Image Results:
Prior GI Procedures:
EGD:
06/11/23, Dr. Warner
�� � � � � � � � - LA Grade C reflux esophagitis with no bleeding.
�� � � � � � � � � � � - Normal stomach.
�� � � � � � � � � � � - Normal examined duodenum.
03/15/23, Dr. Rosen
� � � � � � � � - LA Grade D reflux esophagitis. Slight improvement
�� � � � � � � � � � � from previous exam.
�� � � � � � � � � � � - Medium-sized hiatal hernia.
�� � � � � � � � � � � - No gross lesions in the entire stomach.
�� � � � � � � � � � � - Normal duodenal bulb, first portion of the duodenum
�� � � � � � � � � � � and second portion of the duodenum.
12/17/22, Dr. Rosen� � � � �
� � � � � � � � - LA Grade D esophagitis. Circumferential superficial
�� � � � � � � � � � � ulcers in distal esophagus.
�� � � � � � � � � � � - Medium-sized hiatal hernia.
Colonoscopy:� 5-10 years ago at [facility] per pt, unknown results
Assessment / Plan
-
68-year-old female with history of Alcohol abuse, GERD with hiatal hernia, hypertension admitted with nausea/vomiting/abdominal pain for 2 days. Multiple prior hospitalization with similar symptoms in the past with most recent DC on 12/16/23.
Patient states that she did get her medications filled upon DC but did not open the bag so she does not know what is in there. She did not resume any meds that she was on or supposed to take. She did make herself 2 bloody Ivette's that were 'hot and
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 She states that she developed nausea and vomiting. She
vomited and had epigastric burning. She also had diarrhea starting that day. She states that the diarrhea burned. She also had urinary burning she had abdominal discomfort mostly on the right side. She states that she was laying mostly on the
couch and felt unwell. Patient with a leukocytosis that is now improved, also with a metabolic acidosis that is improving. Patient resumed alcohol on discharge. Not taking home medications with history of chronic diarrhea, on colestipol here in
the past. Was discharged on Carafate, cholestyramine, duloxetine and vitamin D as well as lorazepam, sumatriptan and pantoprazole. She states that she had her medications filled but did not take any of them.
Impression:
Nausea/vomiting
Diarrhea
Colitis on imaging
Metabolic acidosis
JULI
Alcohol abuse
Transaminitis
Plan:
-Patient already started on Unasyn
-Check stool studies
-Would resume colestipol after stool studies obtained
-Clear liquid diet and advance as tolerated
-Pantoprazole 40 mg twice daily
-Carafate ACHS
-Discussed with patient at length alcohol cessation
-Trend CBC, CMP
-
-
Thank you for consultation and allowing me to participate in the patient's care. Please call the [facility] [employer] [facility] GI physician during the after hours with any questions or concerns.
[2023-12-23 17:19] LABS: Uric Acid 13.8 mg/dl (2.5-6.2)
--- NOTE | 2023-12-23 17:35 | W.PN.UPDATE ---
Update Note
Progress Note Update
for billing purposes only
[2023-12-23] MEDS: PROTONIX IV 40 MG IV (19:43)
[2023-12-23] MEDS: NSS (PRESERVATIVE FREE) 10 ML IV (19:43)
[2023-12-23 19:49] VITALS: BP 107/58
[2023-12-23 23:49] VITALS: BP 107/64
[2023-12-24] MEDS: UNASYN IV ×3 (01:33→13:44)
[2023-12-24] MEDS: DILAUDID 0.25 MG IV ×4 (02:30→20:39)
[2023-12-24] MEDS: NSS 1000 IV ×2 (03:18→17:50)
[2023-12-24 03:31] VITALS: BP 109/67
[2023-12-24 05:27] LABS: Hematocrit 27.5 % (37.0-47.0); Hemoglobin 9.5 g/dL (12.0-16.0); Mean Corp Hgb Conc. 34.5 g/dL (33.0-37.0); Mean Corpuscular Hgb 33.3 pg (27.0-31.0); Mean Corpuscular Volume 96.5 fL (81.0-99.0); Mean Platelet Volume 9.9 fL (7.4-10.4); Platelet Count 297 10^3/uL (130-400); Red Blood Cell Count 2.85 10^6/uL (4.20-5.40); Red Cell Dist. Width 15.8 % (11.5-14.5); White Blood Cell Count 6.9 10^3/uL (4.8-10.8)
[2023-12-24 05:46] LABS: Hepatitis C Antibody Reactive (Negative)
[2023-12-24 05:52] LABS: Blood Urea Nitrogen 12 mg/dl (7-17); Calcium 8.5 mg/dl (8.4-10.2); Carbon Dioxide 33 mmol/L (22-30); Chloride 98 mmol/L (98-107); Estimated Creatinine Clearance 52 ml/min; Glucose 119 mg/dl (70-99); Potassium 3.5 mmol/L (3.5-5.1); Sodium 133 mmol/L (135-145); eGFR > 60.00
[2023-12-24] MEDS: CARAFATE 1 GRAM PO ×4 (08:11→23:04)
[2023-12-24 08:12] VITALS: BP 114/67
[2023-12-24] MEDS: NSS (PRESERVATIVE FREE) 10 ML IV ×2 (08:12→20:17)
[2023-12-24] MEDS: ATIVAN 0.5 MG PO ×2 (08:12→20:17)
[2023-12-24] MEDS: THIAMINE INJECTION 200 MG IV ×3 (08:12→23:04)
[2023-12-24] MEDS: CYMBALTA DELAYED RELEASE 20 MG PO (08:12)
[2023-12-24] MEDS: COLCHICINE 0.599999999999999978 MG PO (08:12)
[2023-12-24] MEDS: PROTONIX IV 40 MG IV ×2 (08:12→20:19)
[2023-12-24] MEDS: FOLVITE 1 MG PO (08:12)
[2023-12-24] MEDS: VITAMIN D3 (cholecalciferol) 125 MCG PO (08:13)
[2023-12-24] MEDS: ZOFRAN 4 MG IV ×2 (08:13→14:31)
--- NOTE | 2023-12-24 11:15 | PN.CDI ---
CDI
- -
CDI:
Physician Documentation Request
Admit Date: 12/22/23 17:30
Dear Doctor Bean,
Please review the following and provide your response in the progress notes.
Clinical Indicators:
Laboratory Tests
12/22/23 12/23/23 12/24/23
15:24 03:43 05:01
Sodium 133 L 131 L 133 L
Based on the above, please clarify in the progress notes, the appropriate diagnosis, if significant, that supports the above abnormalities and additional evaluation, monitoring and/or treatment rendered:
Hyponatremia
Abnormal lab value, clinically insignificant
Other
Use of terms such as suspected, likely, concern for, or probable (associated with a specific diagnosis that is being evaluated, monitored, or treated as if it exists) are acceptable and can be coded in the inpatient setting, when documented at the
time of discharge.
Thank you,
Ivette Grant RN BSN CCDS
CDI Specialist
please contact via tiger text
Please use your independent medical judgment in providing your response.
[2023-12-24 11:49] VITALS: BP 148/88
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
--- NOTE | 2023-12-24 14:49 | W.PN.HOSP.TC ---
Today's Communication/Plan
-
Advance diet per GI
Hold systemic abx
Start on oral vanco
Consult ID
CW Colchicine
Assessment / Plan
Assessment / Plan
# Acute pancolitis-patient's presents with nausea, abdominal discomfort and some loose stools. She was recently here for gastritis/gastroenteritis and was discharged home 4 days ago. Associated Leukocytosis noted. Unclear etiology for colitis .
Pt with multiple stool studies shows C Diff positivity but toxin neg . It could be chronic colonization diet persistent positivity of antigen since last year) GI symptoms needing hospitalization I would favor treatments. Start on vancomycin and
consult ID. Hold empirical systemic antibiotics. GI involved.
# Symptomatic esophagitis-patient feels the hot and cold nature of the liquids when she drinks. She had a prior history of esophagitis. Not compliant with the treatments. Continue with PPI and Carafate. No dysphagia symptoms.
# Severe anion gap metabolic acidosis suspect possibly starvation/alcohol ketoacidosis and diarrhea/nausea vomiting
# Acute kidney injury likely secondary dehydration
# Suspected alcohol starvation ketosis
Resolved acidosis-off bicarbonate drip.
Lactic acid normal.
Trend BMP
#Anemia-drop in H&H noted suspect dilutional. Continue to monitor.HH stable
# Hypomagnesemia
Repleted
#Chest pain likely secondary to GI symptoms. Troponins negative. EKG no acute ST-T changes
DC telemetry
#Alcohol abuse
# Transaminitis ?(AST>>ALT) likely in setting of alcohol
Continue withdrawal protocol for safety has a history and with elevated numbers on admission
Patient states she has not drank alcohol for some time. Alcohol level 33 on admission.
#Right ankle pain-difficult to weight-bear. Recent x-rays were negative. No trauma. With alcoholism, dehydration will need to consider gout/pseudogout. Significant elevation of uric acid noted at 13.8. Improving with trial of colchicine .
#Vitamin D deficiency
Continue with vitamin D supplementation
#IBS
CT abdomen pelvis ordered pending
If diarrhea check stool studies
Once nausea vomiting improved start patient on Questran
#History of cholecystectomy status post chronically dilated CBD
History of anxiety disorder
DVT ppx-scds in setting of suspected bleeding
DW GI
Total time spent on today's encounter was 52 minutes which included time spent in counseling the patient/family regarding diagnosis and treatment plan as listed above, goals of care, and symptom management. Case was discussed with nursing staff,
specialists, and care coordinators/case management. All labs and imaging personally reviewed by me. Remainder the time spent in detailed review of previous records, lab data, imaging, and other medical provider documentation.
Anticipated Discharge: > 48 hours
Subjective/Interval History
-
Date of Service: December 24, 2023
Patient states she is tolerating clear liquids without much nausea. Wants her diet to be advanced . She does have abdominal discomfort though better.
She had 2 loose bowel movements.
Feels improved in general.
Her ankle pain as well improving.
Objective Data
-
Labs:
Laboratory Results
12/24/23
05:01
WBC 6.9
Hgb 9.5 L
Hct 27.5 L
Plt Count 297
Sodium 133 L
Potassium 3.5 D
Chloride 98
Carbon Dioxide 33 H
BUN 12
Creatinine 0.9
Glucose 119 H
Calcium 8.5
Vital Signs:
Vital Signs
Temp Pulse Resp BP Pulse Ox
98 F 93 18 148/88 97
12/24/23 11:49 12/24/23 11:49 12/24/23 11:49 12/24/23 11:49 12/24/23 11:49
I&O
12/23/23 12/24/23 12/25/23
06:59 06:59 06:59
Intake Total 1800 / 1800
Output Total 400 / 400 750 / 750
Balance -400 / -400 1050 / 1050
Review of Systems
-
Constitutional: Denies Fever
Respiratory: Denies Trouble Breathing
Cardiac: Denies Chest Pain
Neuro: Denies Dizzy
Physical Exam
-
General: No Apparent Distress
HEENT: Moist Mucous Membranes
Respiratory: Clear to Auscultation
Cardiac: Regular Rhythm and S1/S2
GI: Soft, Nondistended and Normal Bowel Sounds; Negative Tender (some discomfort in LLQ but no rebound or guarding )
Neuro: AO x 3
Psych: Calm
Data Reviewed
-
Labs: Labs Reviewed by me
[2023-12-24 16:09] VITALS: BP 165/92
--- NOTE | 2023-12-24 16:37 | W.PN.UPDATE ---
Update Note
Progress Note Update
billing purposes
[2023-12-24] MEDS: QUESTRAN LIGHT/PREVALITE 4 GRAMS PO (17:49)
[2023-12-24] MEDS: FIRVANQ 125 MG PO ×2 (17:52→23:04)
--- NOTE | 2023-12-24 19:42 | PTCARENOTE ---
Spoke with Maureen in IP about Cdiff result. Toxin negative and antigen positive. Pt has now had multiple episodes of diarrhea this afternoon and has started treatment for CDiff per MD orders. Due to this Maureen recommends placing patient on
enhanced precautions and requesting private room for her. Will follow recommendations - request placed for private room through admissions.
[2023-12-24 19:45] VITALS: BP 145/84
--- NOTE | 2023-12-24 23:30 | PTCARENOTE ---
Patient to be transferred to room 430. Report called to RN. Patient transported to room via wheelchair. Oriented patient to new room.
[2023-12-25] VITALS (7 sets, daily range): BP systolic 127–172; BP diastolic 80–104
[2023-12-25] MEDS: FIRVANQ 125 MG PO ×4 (05:51→23:00)
[2023-12-25] MEDS: CARAFATE 1 GRAM PO ×4 (07:59→22:59)
[2023-12-25] MEDS: ATIVAN 0.5 MG PO ×2 (09:25→20:12)
[2023-12-25] MEDS: CYMBALTA DELAYED RELEASE 20 MG PO (09:26)
[2023-12-25] MEDS: FOLVITE 1 MG PO (09:26)
[2023-12-25] MEDS: COLCHICINE 0.599999999999999978 MG PO (09:26)
[2023-12-25] MEDS: PROTONIX IV 40 MG IV ×2 (09:26→20:12)
[2023-12-25] MEDS: VITAMIN D3 (cholecalciferol) 125 MCG PO (09:26)
[2023-12-25] MEDS: NSS (PRESERVATIVE FREE) 10 ML IV ×2 (09:27→20:12)
[2023-12-25] MEDS: THIAMINE INJECTION 200 MG IV ×2 (09:27→16:17)
[2023-12-25] MEDS: ZOFRAN 4 MG IV (09:27)
--- NOTE | 2023-12-25 09:52 | W.PN.GI.CBS2 ---
Addendum entered and electronically signed by Nya Prince MD 12/25/23 18:16:
I saw and examined the patient.
The TELEHEALTH DIRECTOR or PA's note was reviewed and I agree with the note.
Comment: 68 yo F pmh EtOH abuse, GERD with HH a/w n/v/abd pain/diarrhea multiple admissions takes none of her meds.
Ongoing diarrhea improving. Also got colchinine may worsen diarrhea.
CDI PCR + toxin neg could be contaminant vs infection.
Will treat with vanco hold questran - would complete 10 day course of vancomycin and when complete would resume questran for her post-CCY diarrhea.
Continue PPI/carafate.
Recommend social human services assistants to see if pt would qualify for home health aide - counter caser saw pt yesterday but would benefit from re-evaluation with so many admissions.
Will need cscope outpatient.
Has appt 01/30 11:[address]. Davis.
GI will sign off please maicol with ?s.
Original Note:
Today's Communication / Plan
-
still with diarrhea --infectious vs medication vs other as some chronic loose stools
Pt with c-diff ag -- vanco added 12/23 and Questran held
pt also added colchicine which can cause diarrhea
rectal exam today excluded any overflow with Carafate and Questran use
add Calazime cream -- reviewed with practical nursing teacher to give cream to patient
admits to not taking medication prior to admission and concern for 13 admits in 1 year-- pt agreeable to [facility]NA on discharge
OP colonoscopy after discharge per chart colonoscopy 5-10 years at [facility]
low residue diet
-Pantoprazole 40 mg twice daily
-Carafate ACHS
alcohol cessation
-Trend CBC, CMP with some drop in hbg after admission
offered to call friend 2 who she lives with but pt declines
Pt is scheduled 01/[address] Griffin at 11:30 for follow up visit
Assessment / Plan
-
68-year-old female with history of Alcohol abuse, GERD with hiatal hernia, hypertension admitted with nausea/vomiting/abdominal pain for 2 days. Multiple prior hospitalization with similar symptoms in the past with most recent DC on 12/16/23.
Patient states that she did get her medications filled upon DC but did not open the bag so she does not know what is in there. She did not resume any meds that she was on or supposed to take. She did make herself 2 bloody Ivette's that were 'hot and
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 She states that she developed nausea and vomiting. She
vomited and had epigastric burning. She also had diarrhea starting that day. She states that the diarrhea burned. She also had urinary burning she had abdominal discomfort mostly on the right side. She states that she was laying mostly on the
couch and felt unwell. Patient with a leukocytosis that is now improved, also with a metabolic acidosis that is improving. Patient resumed alcohol on discharge. Not taking home medications with history of chronic diarrhea, on colestipol here in
the past. Was discharged on Carafate, cholestyramine, duloxetine and vitamin D as well as lorazepam, sumatriptan and pantoprazole. She states that she had her medications filled but did not take any of them.
Impression:
Nausea/vomiting- resolved
Diarrhea
c-diff ag + tox neg
Colitis on imaging
Metabolic acidosis
JULI
Alcohol abuse
Transaminitis- chronic
hep C + ab with neg RNA 2021
ductal dilation on imaging post bang
Plan:
still with diarrhea --infectious vs medication vs other as some chronic loose stools
Pt with c-diff ag -- vanco added 4/2 and Questran held
pt also added colchicine which can cause diarrhea
rectal exam today excluded any overflow with Carafate and Questran use
add Calazime cream -- reviewed with practical nursing teacher to give cream to patient
admits to not taking medication prior to admission and concern for 13 admits in 1 year-- pt agreeable to VNA on discharge
OP colonoscopy after discharge per chart colonoscopy 5-10 years at [facility]
low residue diet
-Pantoprazole 40 mg twice daily
-Carafate ACHS
alcohol cessation
-Trend CBC, CMP with some drop in hbg after admission
offered to call friend 4/2 who she lives with but pt declines
Pt is scheduled 01/[address] Griffin at 11:30 for follow up visit
Subjective
Subjective
Date of Service: December 25, 2023
loose brown stools still with some diarrhea , low residue diet c/o some stool leakage
Objective
Data Reviewed
Laboratory Data:
Laboratory Results
12/24/23 05:01
12/24/23 05:01
Laboratory Results
PT 13.6 Sec (11.4-14.6) 12/23/23 00:10
INR 1.05 12/23/23 00:10
Magnesium 3.1 mg/dl (1.6-2.3) H 12/23/23 03:43
Total Bilirubin 0.8 mg/dl (0.2-1.3) 12/22/23 15:24
AST 70 U/L (14-36) H 12/22/23 15:24
ALT 38 U/L (0-35) H 12/22/23 15:24
Alkaline Phosphatase 141 U/L (38-126) H 12/22/23 15:24
Lipase 46 U/L (23-300) 12/22/23 15:24
Vital Signs and I&O:
Vital Signs
Temp Pulse Resp BP Pulse Ox
97.6 F 88 18 172/104 92
12/25/23 08:21 12/25/23 08:21 12/25/23 08:21 12/25/23 08:21 12/25/23 08:21
I&O
12/24/23 12/25/23 12/26/23
06:59 06:59 06:59
Intake Total 1800 / 1800 1140 / 1140
Output Total 750 / 750
Balance 1050 / 1050 1140 / 1140
Physical Exam
Physical Exam
HEENT: Anicteric and Moist mucous membranes
Cardiology: Normal Sinus Rhythm
Pulmonary: Clear
GI: Soft, Non Distended and Non Tender
Rectal: Other (no impaction, some rectal irritation )
Extremities: No Edema
Neuro: Non Focal
--- NOTE | 2023-12-25 09:56 | CM ---
Chart reviewed and plan is to home with friend when stable, will follow with progress notes.
Plan; Home with friend when stable.
[2023-12-25] MEDS: APRESOLINE 5 MG IV (10:47)
--- NOTE | 2023-12-25 11:56 | CON.ID ---
Consultation
-
Date/Time Consultation Requested: 12/24/23 15:02
Date/Time Consultation Performed: 12/25/23 11:57
Requesting Provider: Dr Del Angel
Performing Provider: Dr Hasikns
Reason for Consultation: C diff positivity
Chief Complaint / Past History
Chief Complaint
nausea and vomiting
History of Present Illness
Ms Longoria is a 68 year old female with history of IBS diarrheal type who presented here yesterday for nausea, vomiting and RUQ pain. Vomiting was bilious by report, stool brown, some streaking blood on the toilet paper but no bright red blood per
rectum. Last meal was 2 days previousy. No fevers or chills. Denies EtOH use but level 33 on admission.
She has a PICC that was placed on arrival it is not red or draining but is exceedingly tender.
Since arrival here has been afebrile, bp stable, wbc initially 17 now 6.9, hgb 9.5, plt initially 491 now 297, L shift noted on arrival now 71, cr initially 1.2 now 0.9, t bili 0.8, ast 70, alt 38, alk pohs 141, ua 3+ ketones, no pyuria, hep c ab
reactive, CXR 12/21 no infiltrates; CT a/p with mild-moderate pancolitis 12/21, C diff toxin negative, antigen positive, stool culture in progress no growth, no blood cultures done this admission, now on oral vancomycin and questran held, ID is
consulted for assistance with management.
Past History
Additional Past Medical History:
alcohol use disorder (Last drink couple of weeks ago)
anxiety IBS hiatal hernia chronic diarrhea hypertension
Additional Past Surgical History:
Cholecystectomy and Gynocological
Allergy History:
aspirin Allergy (Verified 12/10/23 11:05)
Unknown
gabapentin Allergy (Verified 12/10/23 11:05)
Unknown
NSAIDS (Non-Steroidal Anti-Inflamma Allergy (Verified 12/10/23 11:05)
Unknown
[id number] Reductase Inhibitor Allergy (Verified 12/10/23 11:05)
Swelling
Sulfa (Sulfonamide Antibiotics) Allergy (Verified 12/10/23 11:05)
Unknown
Medications Reviewed: Yes
Social History
Tobacco: Non-Smoker
Alcohol: Daily
Drug: None
Family History
Family History: Not Pertinent
Review of Systems
Review of Systems
General: Negative Fever or Chills
All systems: All other systems were reviewed and were negative
Vital Signs
Temp Pulse Resp BP Pulse Ox
98.3 F 93 16 144/90 96
12/25/23 11:32 12/25/23 11:32 12/25/23 11:32 12/25/23 11:32 12/25/23 11:32
Physical Exam
Physical Exam
Constitutional: No Acute Distress and Chronically Ill
Cardiovascular: Regular Rate and S1/S2; Negative Murmur or Rub
Pulmonary: Clear and Symmetric; Negative Wheezes, Rales or Rhonchi
Gastrointestinal: Soft, Non Tender, Non Distended and Normal Bowel Sounds
Skin: Warm and Dry; Negative Rash or Jaundice
Lines: PICC (not red or draining, it is very tender)
Lab / Diagnostic Study Results
12/24/23 05:01
12/24/23 05:01
Abs Immat Gran (auto) 0.0 10^3/uL (0-0.05) 12/23/23 03:43
Absolute Neuts (auto) 7.5 10^3/uL (1.4-6.5) H 12/23/23 03:43
Absolute Lymphs (auto) 1.7 10^3/uL (1.2-3.4) 12/23/23 03:43
Absolute Monos (auto) 1.2 10^3/uL (0.1-0.6) H 12/23/23 03:43
Absolute Basos (auto) 0.1 10^3/uL (0-0.2) 12/23/23 03:43
Immature Gran % 0.4 % (0-0.5) 12/23/23 03:43
Neutrophils % 71.8 % (42.2-75.2) 12/23/23 03:43
Lymphocytes % 16.0 % (20.5-51.1) L 12/23/23 03:43
Monocytes % 11.1 % (1.7-9.3) H 12/23/23 03:43
Eosinophils % 0.2 % (0-6) 12/23/23 03:43
Basophils % 0.5 % (0-2) 12/23/23 03:43
PT 13.6 Sec (11.4-14.6) 12/23/23 00:10
INR 1.05 12/23/23 00:10
Lactic Acid 1.8 mmol/L (0.7-2.0) 12/22/23 22:03
Microbiology Results
Micro:
12/24/23 11:27 Salmonella/Shigella Culture - Preliminary
Feces/Stool Culture in Progress
Campylobacter Culture - Preliminary
Culture in Progress
Shiga Toxin Test - Pending
Stool Leukocytes - Final
12/24/23 11:27 C. difficile GDH Antigen & Toxins - Final
Feces/Stool C. difficile antigen positive, toxin negative.
Clostridium difficile present, but toxin not detected.
Patient may be a carrier, colonized with nontoxinogenic
strain or the level of toxin in sample is below detection
limits. This information should be used in conjunction with
the patient's clinical history.
Assessment / Plan
IBS-D
Colonization with C diff
- check norovirus, follow stool culture
- C diff ag positive toxin negative - not the cause of diarrhea but is colonized - fine to complete a course of oral vancomycin
- ppi per GI
- agree with holding questran while on oral vanc
- low threshold for PICC removal - the line is very tender- notified primary team of my concern
- enhanced precautions
- diarrhea chronic and with diagnosis of IBS - do not expect it to fully resolve, medical management per GI
Care Review
Plan reviewed with: Physician (Dr Del Angel - picc)
--- NOTE | 2023-12-25 15:27 | W.PN.HOSP.TC ---
Today's Communication/Plan
-
PT eval
DC planning
Assessment / Plan
Assessment / Plan
# Acute pancolitis-patient's presents with nausea, abdominal discomfort and some loose stools. She was recently here for gastritis/gastroenteritis and was discharged home 4 days ago. Associated Leukocytosis noted. Unclear etiology for colitis .
Pt with multiple stool studies shows C Diff positivity but toxin neg . It could be chronic colonization but with persistent positivity of antigen since last year and GI symptoms needing hospitalization I would favor treatments. Started on
vancomycin ; ID input noted . Complete a course . Hold empirical systemic antibiotics. GI involved.
# Symptomatic esophagitis-patient feels the hot and cold nature of the liquids when she drinks. She had a prior history of esophagitis. Not compliant with the treatments. Continue with PPI and Carafate. No dysphagia symptoms.
# Severe anion gap metabolic acidosis suspect possibly starvation/alcohol ketoacidosis and diarrhea/nausea vomiting
# Acute kidney injury likely secondary dehydration
# Suspected alcohol starvation ketosis
Resolved acidosis-off bicarbonate drip.
Lactic acid normal.
#Anemia-drop in H&H noted suspect dilutional. Continue to monitor.HH stable
# Hypomagnesemia
Repleted
#Chest pain likely secondary to GI symptoms. Troponins negative. EKG no acute ST-T changes
DC telemetry
#Alcohol abuse
# Transaminitis ?(AST>>ALT) likely in setting of alcohol
Continue withdrawal protocol for safety has a history and with elevated numbers on admission
Patient states she has not drank alcohol for some time. Alcohol level 33 on admission.
#Right ankle pain-difficult to weight-bear. Recent x-rays were negative. No trauma. With alcoholism, dehydration will need to consider gout/pseudogout. Significant elevation of uric acid noted at 13.8. Improving with trial of colchicine -tx for
5 days
#Vitamin D deficiency
Continue with vitamin D supplementation
#IBS
CT abdomen pelvis ordered pending
If diarrhea check stool studies
Once nausea vomiting improved start patient on Questran
Elevated BP - two readings were noted to be high ; most of other readings are under goal. Not a known HTN pt. Follow with PCP without tx for now.
#History of cholecystectomy status post chronically dilated CBD
History of anxiety disorder
DVT ppx-scds in setting of suspected bleeding
With improved diarrhea and good oral intake will dc pt home
Obtain PT eval
DC planning
Anticipated Discharge: Today
Subjective/Interval History
-
Date of Service: December 25, 2023
Pt states GI symptoms much improved. Resolved diarrhea. No abdominal discomfort. Tolerating diet without nausea or vomiting.
She states her main issue is she forgets taking her medications at home. She plans to have a pillbox set up by visiting nurses/friends and be compliant with her medications going forward.
Objective Data
-
Vital Signs:
Vital Signs
Temp Pulse Resp BP Pulse Ox
98.3 F 93 16 144/90 96
12/25/23 11:32 12/25/23 11:32 12/25/23 11:32 12/25/23 11:32 12/25/23 11:32
I&O
12/24/23 12/25/23 12/26/23
06:59 06:59 06:59
Intake Total 1800 / 1800 1140 / 1140
Output Total 750 / 750
Balance 1050 / 1050 1140 / 1140
Review of Systems
-
Constitutional: Denies Fever
Respiratory: Denies Cough or Trouble Breathing
Cardiac: Denies Chest Pain
Abdomen/GI: Denies Abdominal Pain, Nausea or Vomiting
Neuro: Denies Dizzy
Physical Exam
-
General: No Apparent Distress
HEENT: Moist Mucous Membranes
Respiratory: Clear to Auscultation
Cardiac: Regular Rhythm and S1/S2
GI: Soft, Nontender, Nondistended and Normal Bowel Sounds
Neuro: AO x 3 and No Motor Deficits; Negative Tremors
Psych: Calm; Negative Confused or Agitated
Data Reviewed
-
Labs: Labs Reviewed by me
--- NOTE | 2023-12-25 17:55 | PTCARENOTE ---
Provider notified of patient's hypertension in the morning, Hydralazine ordered and given. Subsequent pressures improved.
--- NOTE | 2023-12-25 18:16 | W.PN.UPDATE ---
Update Note
Progress Note Update
billing purposes
[2023-12-25] MEDS: VITAMIN B1 100 MG PO (20:12)
[2023-12-26 03:00] VITALS: BP 142/92
[2023-12-26] MEDS: FIRVANQ 125 MG PO ×4 (05:10→23:08)
[2023-12-26 05:32] LABS: Hematocrit 31.8 % (37.0-47.0); Hemoglobin 10.9 g/dL (12.0-16.0); Mean Corp Hgb Conc. 34.3 g/dL (33.0-37.0); Mean Corpuscular Hgb 33.1 pg (27.0-31.0); Mean Corpuscular Volume 96.7 fL (81.0-99.0); Mean Platelet Volume 10.2 fL (7.4-10.4); Platelet Count 306 10^3/uL (130-400); Red Blood Cell Count 3.29 10^6/uL (4.20-5.40); Red Cell Dist. Width 14.7 % (11.5-14.5); White Blood Cell Count 7.9 10^3/uL (4.8-10.8)
[2023-12-26 07:20] VITALS: BP 132/83
[2023-12-26] MEDS: CARAFATE 1 GRAM PO ×4 (07:43→22:59)
[2023-12-26] MEDS: COLCHICINE 0.599999999999999978 MG PO (08:53)
[2023-12-26] MEDS: CYMBALTA DELAYED RELEASE 20 MG PO (08:53)
[2023-12-26] MEDS: NSS (PRESERVATIVE FREE) 10 ML IV (08:53)
[2023-12-26] MEDS: FOLVITE 1 MG PO (08:53)
[2023-12-26] MEDS: VITAMIN B1 100 MG PO ×2 (08:53→19:33)
[2023-12-26] MEDS: ATIVAN 0.5 MG PO ×2 (08:53→19:33)
[2023-12-26] MEDS: PROTONIX IV 40 MG IV (08:53)
[2023-12-26] MEDS: VITAMIN D3 (cholecalciferol) 125 MCG PO (08:53)
--- NOTE | 2023-12-26 12:12 | W.DS.TRANS ---
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
-
Discharge Instructions:
Discharge Diagnosis/Procedures Acute pancolitis. Persistent C. difficile
antigen positive/toxin negative-colonization
versus infection. Esophagitis. Severe
metabolic acidosis suspected multifactorial-
resolved
Diet Regular
Activity As tolerated
Driving Restrictions Not until seen by your Dr
Bathing Restrictions None
Other Services VN
Instructions:
Stand-Alone Forms:
Changes to Home Medications: Yes
Discharge Medications:
DC Medications w/original date entered in [employer]
esomeprazole magnesium 20 mg capsule,delayed release (Nexium) 20 mg PO TID Gastrointestinal Issue 12/22/23
lorazepam 0.5 mg tablet (Ativan) 0.5 mg PO BID anxiety 12/22/23
sumatriptan succinate 50 mg tablet (Imitrex) 0 mg PO .COMPLEX migraine 12/22/23
cholecalciferol (vitamin D3) 125 mcg (5,000 unit) tablet 125 mcg PO DAILY #30 tabs 12/26/23
colchicine 0.6 mg tablet 0.6 mg PO DAILY #2 tabs 12/26/23
duloxetine 20 mg capsule,delayed release 20 mg PO DAILY #30 caps 12/26/23
folic acid 1 mg tablet 1 mg PO DAILY #30 tabs 12/26/23
sucralfate 1 gram tablet 1 g PO ACHS #120 tabs 12/26/23
thiamine HCl (vitamin B1) 100 mg tablet 100 mg PO DAILY #30 tabs 12/26/23
vancomycin 125 mg capsule 125 mg PO QID #36 caps 12/26/23
Home Medication Changes
New medication-vancomycin, thiamine, folic acid, colchicine
Pending Results: No
--- NOTE | 2023-12-26 12:12 | W.PN.HOSP.TC ---
Addendum entered and electronically signed by Manny Del Angel MD 12/26/23 15:59:
Hyponatremia suspected secondary to volume depletion noted on adx
Original Note:
Today's Communication/Plan
-
cw PO Vanco
DC Colchicine
Hold DC
Assessment / Plan
Assessment / Plan
# Acute pancolitis-patient's presents with nausea, abdominal discomfort and some loose stools. She was recently here for gastritis/gastroenteritis and was discharged home 4 days ago. Associated Leukocytosis noted. Unclear etiology for colitis .
Pt with multiple stool studies shows C Diff positivity but toxin neg . It could be chronic colonization but with persistent positivity of antigen since last year and GI symptoms needing hospitalization I would favor treatments. Started on
vancomycin ; ID input noted . Complete a course . Hold empirical systemic antibiotics. GI involved.
Patient asymptomatic with diarrhea and abdominal discomfort. No leukocytosis. Abdomen soft with some right-sided discomfort. She was also feeling dizzy. Hold discharge and follow the stool pattern. Will need to eval further of her colitis if
persistent symptoms.
# Symptomatic esophagitis-patient feels the hot and cold nature of the liquids when she drinks. She had a prior history of esophagitis. Not compliant with the treatments. Continue with PPI and Carafate. No dysphagia symptoms.
# Severe anion gap metabolic acidosis suspect possibly starvation/alcohol ketoacidosis and diarrhea/nausea vomiting
# Acute kidney injury likely secondary dehydration
# Suspected alcohol starvation ketosis
Resolved acidosis-off bicarbonate drip.
Lactic acid normal.
#Anemia-drop in H&H noted suspect dilutional. Continue to monitor.HH stable
# Hypomagnesemia
Repleted
#Chest pain likely secondary to GI symptoms. Troponins negative. EKG no acute ST-T changes
DC telemetry
#Alcohol abuse
# Transaminitis ?(AST>>ALT) likely in setting of alcohol
Continue withdrawal protocol for safety has a history and with elevated numbers on admission
Patient states she has not drank alcohol for some time. Alcohol level 33 on admission.
#Right ankle pain-difficult to weight-bear. Recent x-rays were negative. No trauma. With alcoholism, dehydration will need to consider gout/pseudogout. Significant elevation of uric acid noted at 13.8. Improving with trial of colchicine - dc
further with almost resolved ankle pain and now diarrhea.
#Vitamin D deficiency
Continue with vitamin D supplementation
#IBS
CT abdomen pelvis ordered pending
If diarrhea check stool studies
Once nausea vomiting improved start patient on Questran
Elevated BP - two readings were noted to be high ; most of other readings are under goal. Not a known HTN pt. Follow with PCP without tx for now.
#History of cholecystectomy status post chronically dilated CBD
History of anxiety disorder
DVT ppx-scds in setting of suspected bleeding
Hold DC today and follow diarrhea
Anticipated Discharge: 24 - 48 hours
Subjective/Interval History
-
Date of Service: December 26, 2023
Yesterday she does not feel great today.
She had 5 loose bowel movement so far. She has right abdominal discomfort. She was also feeling dizzy walking to the bathroom.
Was able to tolerate breakfast. No nausea. Not much appetite today for lunch.
No fever or chills.
Denies shortness of breath or chest pain.
Objective Data
-
Labs:
Laboratory Results
12/26/23
05:18
WBC 7.9
Hgb 10.9 L
Hct 31.8 L
Plt Count 306
Vital Signs:
Vital Signs
Temp Pulse Resp BP Pulse Ox
97.9 F 96 18 132/83 98
12/26/23 07:20 12/26/23 07:20 12/26/23 07:20 12/26/23 07:20 12/26/23 07:20
I&O
12/25/23 12/26/23 12/27/23
06:59 06:59 06:59
Intake Total 1140 / 1140 600 / 600
Balance 1140 / 1140 600 / 600
Review of Systems
-
Constitutional: Denies Fever
EENT: Denies Sore Throat
Respiratory: Denies Cough
Genitourinary: Denies Dysuria
Physical Exam
-
General: Comfortable
HEENT: Moist Mucous Membranes
Respiratory: Clear to Auscultation
Cardiac: Regular Rhythm and S1/S2
GI: Soft, Nondistended, Normal Bowel Sounds and Tender (some in rt side of abdomen but no rebound or guarding)
Neuro: AO x 3
Psych: Calm; Negative Confused
Data Reviewed
-
Labs: Labs Reviewed by me
[2023-12-26] MEDS: ZOFRAN 4 MG IV (16:06)
[2023-12-26 16:22] VITALS: BP 115/77
--- NOTE | 2023-12-26 17:38 | W.PN.ID1 ---
Date of Service
Date of Service: December 26, 2023
Today's Communication
- recommend PICC removal - the line is very tender- notified primary team of my concern
ID service will no longer actively follow this patient please recall for further questions
Assessment / Plan
IBS-D
Colonization with C diff
- norovirus and stool culture negative
- C diff ag positive toxin negative - not the cause of diarrhea but is colonized - fine to complete a course of oral vancomycin
- ppi per GI
- agree with holding questran while on oral vanc
- recommend PICC removal - the line is very tender- notified primary team of my concern
- enhanced precautions
- diarrhea chronic and with diagnosis of IBS - do not expect it to fully resolve, medical management per GI
ID service will no longer actively follow this patient please recall for further questions
Chief Complaint
-: Other (c diff colonization)
Subjective / Review of Systems
afebrile
bp stable
without leukocytosis
norovirus negative
Vital Signs / Physical Exam
Vital Signs
Vital Signs
Temp Pulse Resp BP Pulse Ox
98.7 F 105 18 115/77 98
12/26/23 16:22 12/26/23 16:22 12/26/23 16:22 12/26/23 16:22 12/26/23 07:20
Physical Exam
Constitutional: No Acute Distress
Cardiovascular: Regular Rate and S1/S2; Negative Murmur or Rub
Pulmonary: Clear and Symmetric; Negative Wheezes or Rales
Gastrointestinal: Soft, Non Tender, Non Distended and Normal Bowel Sounds
Skin: Warm and Dry; Negative Rash or Jaundice
Objective Data
Lab Data
Lab Results
12/26/23 05:18
12/24/23 05:01
PT 13.6 Sec (11.4-14.6) 12/23/23 00:10
INR 1.05 12/23/23 00:10
Estimated Creat Clear 52 ml/min 12/24/23 05:01
Lactic Acid 1.8 mmol/L (0.7-2.0) 12/22/23 22:03
Total Bilirubin 0.8 mg/dl (0.2-1.3) 12/22/23 15:24
GGT 109 U/L (12-43) H 12/22/23 22:03
AST 70 U/L (14-36) H 12/22/23 15:24
ALT 38 U/L (0-35) H 12/22/23 15:24
Alkaline Phosphatase 141 U/L (38-126) H 12/22/23 15:24
Most recent labs reviewed.
Micro Results:
12/24/23 11:27 Salmonella/Shigella Culture - Final
Feces/Stool No Salmonella, Shigella, Aeromonas or Plesiomonas species
isolated.
Campylobacter Culture - Final
No Campylobacter species isolated.
Shiga Toxin Test - Final
No E. coli Shiga Toxin 1 or 2 detected.
Stool Leukocytes - Final
12/24/23 11:27 C. difficile GDH Antigen & Toxins - Final
Feces/Stool C. difficile antigen positive, toxin negative.
Clostridium difficile present, but toxin not detected.
Patient may be a carrier, colonized with nontoxinogenic
strain or the level of toxin in sample is below detection
limits. This information should be used in conjunction with
the patient's clinical history.
- Final
Negative for Norovirus GI and GII.
[2023-12-26] MEDS: ULTRAM 50 MG PO (17:43)
[2023-12-26] MEDS: NSS (PRESERVATIVE FREE) IV (20:34)
[2023-12-26] MEDS: PROTONIX IV IV (20:35)
[2023-12-26] MEDS: TYLENOL 650 MG PO (21:52)
[2023-12-26 23:09] VITALS: BP 138/87
[2023-12-27] MEDS: FIRVANQ 125 MG PO ×4 (05:12→23:10)
[2023-12-27 07:35] VITALS: BP 140/101
[2023-12-27 07:37] LABS: Hematocrit 31.2 % (37.0-47.0); Hemoglobin 10.7 g/dL (12.0-16.0); Mean Corp Hgb Conc. 34.3 g/dL (33.0-37.0); Mean Corpuscular Hgb 33.2 pg (27.0-31.0); Mean Corpuscular Volume 96.9 fL (81.0-99.0); Mean Platelet Volume 10.1 fL (7.4-10.4); Platelet Count 298 10^3/uL (130-400); Red Blood Cell Count 3.22 10^6/uL (4.20-5.40); Red Cell Dist. Width 15.1 % (11.5-14.5); White Blood Cell Count 6.7 10^3/uL (4.8-10.8)
[2023-12-27 07:54] LABS: Blood Urea Nitrogen 16 mg/dl (7-17); Carbon Dioxide 33 mmol/L (22-30); Chloride 93 mmol/L (98-107); Estimated Creatinine Clearance 52 ml/min; Glucose 121 mg/dl (70-99); Sodium 133 mmol/L (135-145); eGFR > 60.00
[2023-12-27] MEDS: CARAFATE 1 GRAM PO ×4 (08:19→21:16)
[2023-12-27] MEDS: ULTRAM 50 MG PO ×3 (08:19→23:09)
[2023-12-27] MEDS: VITAMIN B1 100 MG PO ×2 (08:20→21:14)
[2023-12-27] MEDS: FOLVITE 1 MG PO (08:20)
[2023-12-27] MEDS: CYMBALTA DELAYED RELEASE 20 MG PO (08:20)
[2023-12-27] MEDS: VITAMIN D3 (cholecalciferol) 125 MCG PO (08:20)
[2023-12-27] MEDS: PROTONIX IV IV ×2 (08:34→21:17)
[2023-12-27] MEDS: NSS (PRESERVATIVE FREE) IV ×2 (08:34→21:17)
[2023-12-27] MEDS: ATIVAN 0.5 MG PO ×2 (08:35→21:13)
[2023-12-27 09:04] VITALS: BP 111/83
[2023-12-27] MEDS: KCL 40 MEQ PO (12:20)
--- NOTE | 2023-12-27 12:30 | CM ---
Chart reviewed, home when stable.
Plan; Home when stable.
--- NOTE | 2023-12-27 12:40 | W.PN.HOSP.TC ---
Today's Communication/Plan
-
Replete K
CW Vancomycin
Reconsult GI
Assessment / Plan
Assessment / Plan
# Acute pancolitis-patient's presents with nausea, abdominal discomfort and some loose stools. She was recently here for gastritis/gastroenteritis and was discharged home 4 days ago. Associated Leukocytosis noted. Unclear etiology for colitis .
Pt with multiple stool studies shows C Diff positivity but toxin neg . It could be chronic colonization but with persistent positivity of antigen since last year and GI symptoms needing hospitalization I would favor treatments. Started on
vancomycin ; ID input noted . Complete a course .
Patient persistent diarrhea causing hypokalemia. Abdomen soft with some right-sided discomfort. She was also feeling dizzy. Hold discharge . Reconsult GI.
# Symptomatic esophagitis-patient feels the hot and cold nature of the liquids when she drinks. She had a prior history of esophagitis. Not compliant with the treatments. Continue with PPI and Carafate. No dysphagia symptoms.
# Severe anion gap metabolic acidosis suspect possibly starvation/alcohol ketoacidosis and diarrhea/nausea vomiting
# Acute kidney injury likely secondary dehydration
# Suspected alcohol starvation ketosis
Resolved acidosis-off bicarbonate drip.
Lactic acid normal.
#Anemia-drop in H&H noted suspect dilutional. Continue to monitor.HH stable
# Hypokalemia -replete
#Alcohol abuse
# Transaminitis ?(AST>>ALT) likely in setting of alcohol
Continue withdrawal protocol for safety has a history and with elevated numbers on admission
Patient states she has not drank alcohol for some time. Alcohol level 33 on admission.
#Right ankle pain-difficult to weight-bear. Recent x-rays were negative. No trauma. With alcoholism, dehydration will need to consider gout/pseudogout. Significant elevation of uric acid noted at 13.8. Improving with trial of colchicine - due
to ongoing diarrehea ,dced further with almost resolved ankle pain .
#Vitamin D deficiency
Continue with vitamin D supplementation
#IBS
CT abdomen pelvis noted
Once nausea vomiting improved start patient on Questran
Elevated BP - two readings were noted to be high ; most of other readings are under goal. Not a known HTN pt. Follow with PCP without tx for now.
#History of cholecystectomy status post chronically dilated CBD
History of anxiety disorder
DVT ppx-scds in setting of suspected bleeding
Anticipated Discharge: 24 - 48 hours
Subjective/Interval History
-
Date of Service: December 27, 2023
Patient complains of ongoing diarrhea. She states she had 6 episodes of loose bowel movements They are moderate in quantity. Looser. She has associated right-sided abdominal pain. She does not feel nauseous but is able to tolerate diet.
No fever or chills.
Feeling weak.
Objective Data
-
Labs:
Laboratory Results
12/27/23
07:09
WBC 6.7
Hgb 10.7 L
Hct 31.2 L
Plt Count 298
Sodium 133 L
Potassium 3.0 L
Chloride 93 L
Carbon Dioxide 33 H
BUN 16
Creatinine 0.9
Glucose 121 H
Calcium 10.0
Vital Signs:
Vital Signs
Temp Pulse Resp BP Pulse Ox
98.0 F 90 16 140/101 96
12/27/23 07:35 12/27/23 07:35 12/27/23 07:35 12/27/23 07:35 12/27/23 07:35
I&O
12/26/23 12/27/23 12/28/23
06:59 06:59 06:59
Intake Total 600 / 600 960 / 960
Balance 600 / 600 960 / 960
Review of Systems
-
EENT: Denies Sore Throat
Respiratory: Denies Cough or Trouble Breathing
Cardiac: Denies Chest Pain
Neuro: Denies Dizzy
Physical Exam
-
General: No Apparent Distress
HEENT: Moist Mucous Membranes
Respiratory: Clear to Auscultation
Cardiac: Regular Rhythm and S1/S2
GI: Soft, Nondistended, Normal Bowel Sounds and Tender (Rt UQ and LQ Without rebound or guarding.)
Neuro: AO x 3
Data Reviewed
-
Labs: Labs Reviewed by me
--- NOTE | 2023-12-27 13:11 | W.PN.GI.CBS2 ---
Today's Communication / Plan
-
See assessment and plan for details.
Assessment / Plan
-
1. Diarrhea: With moderate pancolitis noted on CT scan, C. difficile positive though toxin negative, had been improving on oral vancomycin, now with recurrent diarrhea. Her exam is benign though does have some mild tenderness, though leukocytosis
has resolved and overall she feels much better from presentation. At this point we will restart Questran which she is supposed to be on, also can sometimes help with C. difficile, discussed continued supportive care for now. If still not improving
may need to consider switching vancomycin to Dificid though we will hold on this for now.
Subjective
Subjective
Date of Service: December 27, 2023
Asked to see patient about recurrent diarrhea and abdominal pain. Patient was admitted Initially on December 21 with renal insufficiency and diarrhea, CT scan with colitis, stool studies positive for C. difficile though toxin negative. She was
improving on oral vancomycin, though this morning had some increasing diarrhea and describes diffuse crampy abdominal pain. She is overall feeling much better than she was on admission, though the increased diarrhea was new for her. She does have
chronic diarrhea and is supposed to be on Questran for postcholecystectomy diarrhea though does not take routinely. She denies any bleeding now, fever or chills and her leukocytosis has much improved.
Objective
Data Reviewed
Laboratory Data:
Laboratory Results
12/27/23 07:09
12/27/23 07:09
Laboratory Results
PT 13.6 Sec (11.4-14.6) 12/23/23 00:10
INR 1.05 12/23/23 00:10
Magnesium 3.1 mg/dl (1.6-2.3) H 12/23/23 03:43
Total Bilirubin 0.8 mg/dl (0.2-1.3) 12/22/23 15:24
AST 70 U/L (14-36) H 12/22/23 15:24
ALT 38 U/L (0-35) H 12/22/23 15:24
Alkaline Phosphatase 141 U/L (38-126) H 12/22/23 15:24
Lipase 46 U/L (23-300) 12/22/23 15:24
Vital Signs and I&O:
Vital Signs
Temp Pulse Resp BP Pulse Ox
98.0 F 90 16 140/101 96
12/27/23 07:35 12/27/23 07:35 12/27/23 07:35 12/27/23 07:35 12/27/23 07:35
I&O
12/26/23 12/27/23 12/28/23
06:59 06:59 06:59
Intake Total 600 / 600 960 / 960
Balance 600 / 600 960 / 960
Physical Exam
Physical Exam
General: NAD
Abdomen: normal bowel sounds, soft, mild diffuse tenderness, no masses or bruits, no ascites
[2023-12-27 15:20] VITALS: BP 125/77
[2023-12-27] MEDS: QUESTRAN LIGHT/PREVALITE 4 GRAMS PO (15:50)
--- NOTE | 2023-12-27 19:50 | W.PN.UPDATE ---
Update Note
Progress Note Update
No IV access per RN, will change Protonix IV to Protonix 40mg PO BID
[2023-12-27] MEDS: TYLENOL 650 MG PO (21:10)
[2023-12-27] MEDS: PROTONIX 40 MG PO (21:12)
[2023-12-27 23:38] VITALS: BP 118/76
[2023-12-28] MEDS: ULTRAM 50 MG PO ×3 (06:11→19:42)
[2023-12-28] MEDS: FIRVANQ 125 MG PO ×3 (06:12→18:14)
[2023-12-28 07:30] VITALS: BP 135/91
[2023-12-28 07:30] LABS: Blood Urea Nitrogen 19 mg/dl (7-17); Calcium 10.2 mg/dl (8.4-10.2); Carbon Dioxide 30 mmol/L (22-30); Chloride 96 mmol/L (98-107); Estimated Creatinine Clearance 52 ml/min; Glucose 109 mg/dl (70-99); Potassium 3.7 mmol/L (3.5-5.1); Sodium 133 mmol/L (135-145); eGFR > 60.00
[2023-12-28] MEDS: VITAMIN B1 100 MG PO ×2 (09:43→19:42)
[2023-12-28] MEDS: CYMBALTA DELAYED RELEASE 20 MG PO (09:44)
[2023-12-28] MEDS: VITAMIN D3 (cholecalciferol) 125 MCG PO (09:44)
[2023-12-28] MEDS: CARAFATE 1 GRAM PO ×4 (09:44→22:01)
[2023-12-28] MEDS: ATIVAN 0.5 MG PO ×2 (09:44→22:01)
[2023-12-28] MEDS: PROTONIX 40 MG PO ×2 (09:44→19:42)
[2023-12-28] MEDS: FOLVITE 1 MG PO (09:44)
--- NOTE | 2023-12-28 09:44 | W.PN.GI.CBS2 ---
Today's Communication / Plan
-
Please see assessment and plan for details.
Assessment / Plan
-
1. Diarrhea: With moderate pancolitis noted on CT scan, C. difficile positive though toxin negative, had been improving on oral vancomycin, now with recurrent diarrhea. Her exam is benign though does have some mild tenderness, though leukocytosis
has resolved and overall she feels much better from presentation. She is little bit better today, with smaller volume this morning. Will continue Questran for now, though if no improvement may switch to Dificid tomorrow.
Subjective
Subjective
Date of Service: December 28, 2023
Patient feeling okay overall, still with diarrhea though is less volume, only small amount this morning, less pain, no fever or chills.
Objective
Data Reviewed
Laboratory Data:
Laboratory Results
12/27/23 07:09
12/28/23 06:47
Laboratory Results
PT 13.6 Sec (11.4-14.6) 12/23/23 00:10
INR 1.05 12/23/23 00:10
Magnesium 3.1 mg/dl (1.6-2.3) H 12/23/23 03:43
Total Bilirubin 0.8 mg/dl (0.2-1.3) 12/22/23 15:24
AST 70 U/L (14-36) H 12/22/23 15:24
ALT 38 U/L (0-35) H 12/22/23 15:24
Alkaline Phosphatase 141 U/L (38-126) H 12/22/23 15:24
Lipase 46 U/L (23-300) 12/22/23 15:24
Vital Signs and I&O:
Vital Signs
Temp Pulse Resp BP Pulse Ox
97.8 F 87 17 135/91 96
12/28/23 07:30 12/28/23 07:30 12/28/23 07:30 12/28/23 07:30 12/28/23 07:30
I&O
12/27/23 12/28/23 12/29/23
06:59 06:59 06:59
Intake Total 960 / 960 480 / 480
Balance 960 / 960 480 / 480
Physical Exam
Physical Exam
General: NAD
Abdomen: normal bowel sounds, soft, mildly decreased right-sided tenderness, no masses or bruits, no ascites
[2023-12-28] MEDS: QUESTRAN LIGHT/PREVALITE 4 GRAMS PO (09:45)
--- NOTE | 2023-12-28 13:11 | W.PN.HOSP.TC ---
Today's Communication/Plan
-
CW current tx
Follow stool chart
Assessment / Plan
Assessment / Plan
# Acute pancolitis-patient's presents with nausea, abdominal discomfort and some loose stools. She was recently here for gastritis/gastroenteritis and was discharged home 4 days ago. Associated Leukocytosis noted. Unclear etiology for colitis .
Pt with multiple stool studies shows C Diff positivity but toxin neg . It could be chronic colonization but with persistent positivity of antigen since last year and GI symptoms needing hospitalization I would favor treatments. Started on
vancomycin ; ID input noted . Complete a course .
Ongoing diarrhea but decreased volume . Abdomen soft with some right-sided discomfort. GI input noted - Questran restarted .
# Symptomatic esophagitis-patient feels the hot and cold nature of the liquids when she drinks. She had a prior history of esophagitis. Not compliant with the treatments. Continue with PPI and Carafate. No dysphagia symptoms.
# Severe anion gap metabolic acidosis suspect possibly starvation/alcohol ketoacidosis and diarrhea/nausea vomiting
# Acute kidney injury likely secondary dehydration
# Suspected alcohol starvation ketosis
Resolved acidosis-off bicarbonate drip.
Lactic acid normal.
#Anemia-drop in H&H noted suspect dilutional. Continue to monitor.HH stable
#Alcohol abuse
# Transaminitis ?(AST>>ALT) likely in setting of alcohol
Continue withdrawal protocol for safety has a history and with elevated numbers on admission
Patient states she has not drank alcohol for some time. Alcohol level 33 on admission.
#Right ankle pain-difficult to weight-bear. Recent x-rays were negative. No trauma. With alcoholism, dehydration will need to consider gout/pseudogout. Significant elevation of uric acid noted at 13.8. Improving with trial of colchicine - due
to ongoing diarrehea ,dced further with almost resolved ankle pain .
#Vitamin D deficiency
Continue with vitamin D supplementation
#IBS
CT abdomen pelvis noted
Once nausea vomiting improved start patient on Questran
Elevated BP - two readings were noted to be high ; most of other readings are under goal. Not a known HTN pt. Follow with PCP without tx for now.
#History of cholecystectomy status post chronically dilated CBD
History of anxiety disorder
DVT ppx-scds in setting of suspected bleeding
Anticipated Discharge: 24 - 48 hours
Subjective/Interval History
-
Date of Service: December 28, 2023
Ongoing diarrhea - frequency high but smaller volume now.
No N/V. Tolerating diet.
Still with some right sided abdo pain /discomfort.
Objective Data
-
Labs:
Laboratory Results
12/28/23
06:47
Sodium 133 L
Potassium 3.7
Chloride 96 L
Carbon Dioxide 30
BUN 19 H
Creatinine 0.9
Glucose 109 H
Calcium 10.2
Vital Signs:
Vital Signs
Temp Pulse Resp BP Pulse Ox
97.8 F 87 17 135/91 96
12/28/23 07:30 12/28/23 07:30 12/28/23 07:30 12/28/23 07:30 12/28/23 07:30
I&O
12/27/23 12/28/23 12/29/23
06:59 06:59 06:59
Intake Total 960 / 960 480 / 480
Balance 960 / 960 480 / 480
Review of Systems
-
Constitutional: Denies Fever
Respiratory: Denies Trouble Breathing
Cardiac: Denies Chest Pain
Musculoskeletal: Denies Joint Pain (improved ankle pain)
Neuro: Denies Dizzy
Physical Exam
-
General: No Apparent Distress
HEENT: Moist Mucous Membranes
Respiratory: Clear to Auscultation
Cardiac: Regular Rhythm and S1/S2
GI: Soft, Nondistended and Normal Bowel Sounds; Negative Tender (some discomfort in right side abdo but no rebound or guarding)
Neuro: AO x 3
Psych: Calm
Data Reviewed
-
Labs: Labs Reviewed by me
[2023-12-28 15:30] VITALS: BP 102/74; BP 123/86; BP 140/82; PULSE 87; PULSE 89; PULSE 98
[2023-12-28 16:15] VITALS: BP 140/82
[2023-12-28] MEDS: ATIVAN PO (19:42)
[2023-12-28 23:00] VITALS: BP 147/81
[2023-12-29] MEDS: FIRVANQ 125 MG PO ×5 (00:43→23:06)
[2023-12-29] MEDS: ROXICODONE 10 MG PO ×5 (01:56→22:08)
[2023-12-29 07:51] VITALS: BP 102/69; BP 113/74; BP 99/66; PULSE 90; PULSE 92; PULSE 94
--- NOTE | 2023-12-29 09:01 | W.PN.GI.CBS2 ---
Today's Communication / Plan
-
See assessment and plan for details.
Assessment / Plan
-
1. Diarrhea: With moderate pancolitis noted on CT scan, C. difficile positive though toxin negative, had been improving on oral vancomycin, now with recurrent diarrhea. Her exam is benign though does have some mild tenderness, though leukocytosis
has resolved and overall she feels much better from presentation. She is little bit better today, with smaller volume this morning. She still continues to improve, so we will continue vancomycin and Questran for now.
Subjective
Subjective
Date of Service: December 29, 2023
Patient still with diarrhea though feels that is heading in the right direction, much less volume, less frequency, though still loose, still some mild abdominal pain though no vomiting or fevers, tolerating diet without difficulty.
Objective
Data Reviewed
Laboratory Data:
Laboratory Results
12/27/23 07:09
12/28/23 06:47
Laboratory Results
PT 13.6 Sec (11.4-14.6) 12/23/23 00:10
INR 1.05 12/23/23 00:10
Magnesium 3.1 mg/dl (1.6-2.3) H 12/23/23 03:43
Total Bilirubin 0.8 mg/dl (0.2-1.3) 12/22/23 15:24
AST 70 U/L (14-36) H 12/22/23 15:24
ALT 38 U/L (0-35) H 12/22/23 15:24
Alkaline Phosphatase 141 U/L (38-126) H 12/22/23 15:24
Lipase 46 U/L (23-300) 12/22/23 15:24
Vital Signs and I&O:
Vital Signs
Temp Pulse Resp BP Pulse Ox
97.7 F 90 18 113/74 96
12/29/23 07:51 12/29/23 07:51 12/29/23 07:51 12/29/23 07:51 12/29/23 07:51
I&O
12/28/23 12/29/23 12/30/23
06:59 06:59 06:59
Intake Total 480 / 480 1200 / 1200
Balance 480 / 480 1200 / 1200
Physical Exam
Physical Exam
General: NAD
Abdomen: normal bowel sounds, soft, mild though improved right sided tenderness, no masses or bruits, no ascites
[2023-12-29] MEDS: CYMBALTA DELAYED RELEASE 20 MG PO (09:07)
[2023-12-29] MEDS: QUESTRAN LIGHT/PREVALITE 4 GRAMS PO (09:07)
[2023-12-29] MEDS: VITAMIN B1 100 MG PO ×2 (09:08→20:53)
[2023-12-29] MEDS: VITAMIN D3 (cholecalciferol) 125 MCG PO (09:08)
[2023-12-29] MEDS: CARAFATE 1 GRAM PO ×4 (09:08→22:08)
[2023-12-29] MEDS: ATIVAN 0.5 MG PO ×2 (09:08→22:08)
[2023-12-29] MEDS: FOLVITE 1 MG PO (09:08)
[2023-12-29] MEDS: PROTONIX 40 MG PO ×2 (11:13→20:53)
--- NOTE | 2023-12-29 14:27 | W.PN.HOSP.TC ---
Today's Communication/Plan
-
Repeat CT A/P
Assessment / Plan
Assessment / Plan
# Acute pancolitis-patient's presents with nausea, abdominal discomfort and some loose stools. She was recently here for gastritis/gastroenteritis and was discharged home 4 days ago. Associated Leukocytosis noted. Unclear etiology for colitis .
Pt with multiple stool studies shows C Diff positivity but toxin neg . It could be chronic colonization but with persistent positivity of antigen since last year and GI symptoms needing hospitalization I would favor treatments. Started on
vancomycin ; ID input noted . Complete a course .
Ongoing diarrhea and abdo discomfort. Repeat CT A/P .
GI input noted - Questran restarted .
# Symptomatic esophagitis-patient feels the hot and cold nature of the liquids when she drinks. She had a prior history of esophagitis. Not compliant with the treatments. Continue with PPI and Carafate. No dysphagia symptoms.
# Severe anion gap metabolic acidosis suspect possibly starvation/alcohol ketoacidosis and diarrhea/nausea vomiting
# Acute kidney injury likely secondary dehydration
# Suspected alcohol starvation ketosis
Resolved acidosis-off bicarbonate drip.
Lactic acid normal.
#Anemia-drop in H&H noted suspect dilutional. Continue to monitor.HH stable
#Alcohol abuse
# Transaminitis ?(AST>>ALT) likely in setting of alcohol
Continue withdrawal protocol for safety has a history and with elevated numbers on admission
Patient states she has not drank alcohol for some time. Alcohol level 33 on admission.
#Right ankle pain-difficult to weight-bear. Recent x-rays were negative. No trauma. With alcoholism, dehydration will need to consider gout/pseudogout. Significant elevation of uric acid noted at 13.8. Improving with trial of colchicine - due
to ongoing diarrehea ,dced further with almost resolved ankle pain .
#Vitamin D deficiency
Continue with vitamin D supplementation
#IBS
CT abdomen pelvis noted
Once nausea vomiting improved start patient on Questran
Elevated BP - two readings were noted to be high ; most of other readings are under goal. Not a known HTN pt. Follow with PCP without tx for now.
#History of cholecystectomy status post chronically dilated CBD
History of anxiety disorder
DVT ppx-scds in setting of suspected bleeding
Anticipated Discharge: 24 - 48 hours
Subjective/Interval History
-
Date of Service: December 29, 2023
Patient still with ongoing diarrhea. Frequent bowel movements. She thinks she had at least 6 bowel movements. Able to tolerate her lunch. She still has abdominal pain. She is now using oxycodone which was prescribed to her. No fever or
chills.
Objective Data
-
Vital Signs:
Vital Signs
Temp Pulse Resp BP Pulse Ox
97.7 F 90 18 113/74 96
12/29/23 07:51 12/29/23 07:51 12/29/23 07:51 12/29/23 07:51 12/29/23 07:51
I&O
12/28/23 12/29/23 12/30/23
06:59 06:59 06:59
Intake Total 480 / 480 1200 / 1200 480 / 480
Balance 480 / 480 1200 / 1200 480 / 480
Review of Systems
-
Respiratory: Denies Trouble Breathing
Cardiac: Denies Chest Pain
Neuro: Denies Dizzy
Physical Exam
-
General: No Apparent Distress
HEENT: Moist Mucous Membranes
Respiratory: Clear to Auscultation
Cardiac: Regular Rhythm and S1/S2
GI: Soft, Nondistended, Normal Bowel Sounds and Tender (Right side abdomen with no rebound or guarding)
Neuro: AO x 3
Psych: Calm
Data Reviewed
-
Labs: Labs Reviewed by me
[2023-12-29 15:04] VITALS: BP 101/66
[2023-12-29] MEDS: OMNIPAQUE PO (15:33)
[2023-12-29] MEDS: OMNIPAQUE 50 ML PO (16:18)
[2023-12-29 23:32] VITALS: BP 147/86
[2023-12-30] MEDS: FIRVANQ 125 MG PO (06:07)
[2023-12-30] MEDS: ROXICODONE 10 MG PO ×2 (06:07→09:57)
--- NOTE | 2023-12-30 06:39 | W.PN.GI.CBS2 ---
Today's Communication / Plan
-
See assessment and plan for details.
Assessment / Plan
-
1. Diarrhea: With moderate pancolitis noted on CT scan initially, stool positive for C. difficile toxin negative, she did have significant leukocytosis and responded to oral vancomycin. Now with recurrent diarrhea which is likely multifactorial.
She has chronic diarrhea, likely bile salt related, did improve a bit on Questran. Repeat CT scan with improvement in her colitis, though given persistent diarrhea we will switch vancomycin to Dificid and continue Questran for now. There was a
question of cystitis on CAT scan and will repeat UA. There was gastric distention and contents though she has been eating well with no vomiting, doubt clinically significant.
Subjective
Subjective
Date of Service: December 30, 2023
Patient still complaining of some right-sided abdominal pain and diarrhea, 7 times since yesterday by report, some all diarrhea, though some formed. Repeat CT scan showed some mild right colon thickening otherwise had some stool throughout. It was
significant gastric contents, the patient is eating well with no nausea or vomiting.
Objective
Data Reviewed
Laboratory Data:
Laboratory Results
PT 13.6 Sec (11.4-14.6) 12/23/23 00:10
INR 1.05 12/23/23 00:10
Magnesium 3.1 mg/dl (1.6-2.3) H 12/23/23 03:43
Total Bilirubin 0.8 mg/dl (0.2-1.3) 12/22/23 15:24
AST 70 U/L (14-36) H 12/22/23 15:24
ALT 38 U/L (0-35) H 12/22/23 15:24
Alkaline Phosphatase 141 U/L (38-126) H 12/22/23 15:24
Lipase 46 U/L (23-300) 12/22/23 15:24
Vital Signs and I&O:
Vital Signs
Temp Pulse Resp BP Pulse Ox
98.1 F 81 20 147/86 97
12/29/23 23:32 12/29/23 23:32 12/29/23 23:32 12/29/23 23:32 12/29/23 23:32
I&O
12/28/23 12/29/23 12/30/23
06:59 06:59 06:59
Intake Total 480 / 480 1200 / 1200 1959
Balance 480 / 480 1200 / 1200 1959
Physical Exam
Physical Exam
General: NAD
Abdomen: normal bowel sounds, soft, mild right sided tenderness, no masses or bruits, no ascites
[2023-12-30 07:07] LABS: Hematocrit 27.8 % (37.0-47.0); Hemoglobin 9.7 g/dL (12.0-16.0); Mean Corp Hgb Conc. 34.9 g/dL (33.0-37.0); Mean Corpuscular Hgb 32.8 pg (27.0-31.0); Mean Corpuscular Volume 93.9 fL (81.0-99.0); Mean Platelet Volume 9.9 fL (7.4-10.4); Platelet Count 308 10^3/uL (130-400); Red Blood Cell Count 2.96 10^6/uL (4.20-5.40); Red Cell Dist. Width 15.2 % (11.5-14.5); White Blood Cell Count 8.2 10^3/uL (4.8-10.8)
[2023-12-30 07:49] LABS: Blood Urea Nitrogen 22 mg/dl (7-17); Calcium 9.8 mg/dl (8.4-10.2); Carbon Dioxide 25 mmol/L (22-30); Chloride 99 mmol/L (98-107); Estimated Creatinine Clearance 47 ml/min; Glucose 95 mg/dl (70-99); Potassium 3.8 mmol/L (3.5-5.1); Sodium 133 mmol/L (135-145); eGFR > 60.00
[2023-12-30 08:23] VITALS: BP 100/59; BP 112/59; BP 98/62; BP 99/60; PULSE 78; PULSE 90; PULSE 92
--- NOTE | 2023-12-30 09:34 | W.PN.HOSP.TC ---
Today's Communication/Plan
-
DC planning
Assessment / Plan
Assessment / Plan
# Acute pancolitis-patient's presents with nausea, abdominal discomfort and some loose stools. She was recently here for gastritis/gastroenteritis and was discharged home 4 days ago. Associated Leukocytosis noted. Unclear etiology for colitis .
Pt with multiple stool studies shows C Diff positivity but toxin neg . It could be chronic colonization but with persistent positivity of antigen since last year and GI symptoms needing hospitalization I would favor treatments. Started on
vancomycin ; ID input noted . Complete a 10 day course .
Ongoing diarrhea and abdo discomfort. Repeat CT A/P showed resolution of colitis ;there is Severe distention of the stomach with contrast and fluid which could be secondary to a gastroenteritis patient without upper GI symptoms and tolerating all
her meals. Patient using [id number] oxycodone which is disproportionate to her findings. Advised to stay away from narcotics which could exacerbate her GI symptoms. Vancomycin changed to Dificid-will look for coverage.
Resolved leukocytosis. Afebrile.
Questran restarted .
With resolved colitis on the CT Will discharge patient home today.
# Symptomatic esophagitis-patient feels the hot and cold nature of the liquids when she drinks. She had a prior history of esophagitis. Not compliant with the treatments. Continue with PPI and Carafate. No dysphagia symptoms.
# Severe anion gap metabolic acidosis suspect possibly starvation/alcohol ketoacidosis and diarrhea/nausea vomiting
# Acute kidney injury likely secondary dehydration
# Suspected alcohol starvation ketosis
Resolved acidosis-off bicarbonate drip.
Lactic acid normal.
# Urinary bladder wall thickening without symptoms noted. UA on admission was negative. Repeat UA requested by GI-will follow
#Anemia-drop in H&H noted suspect dilutional. Continue to monitor.HH stable
#Alcohol abuse
# Transaminitis ?(AST>>ALT) likely in setting of alcohol
Continue withdrawal protocol for safety has a history and with elevated numbers on admission
Patient states she has not drank alcohol for some time. Alcohol level 33 on admission.
#Right ankle pain-difficult to weight-bear. Recent x-rays were negative. No trauma. With alcoholism, dehydration will need to consider gout/pseudogout. Significant elevation of uric acid noted at 13.8. Improving with trial of colchicine - due
to ongoing diarrehea ,dced further with almost resolved ankle pain .
#Vitamin D deficiency
Continue with vitamin D supplementation
#IBS
Continue Questran
Elevated BP - two readings were noted to be high ; most of other readings are under goal. Not a known HTN pt. Follow with PCP without tx for now.
#History of cholecystectomy status post chronically dilated CBD
History of anxiety disorder
DVT ppx-scds in setting of suspected bleeding
DC home if urinalysis is negative.
Anticipated Discharge: Today
Subjective/Interval History
-
Date of Service: December 30, 2023
Tolerating diet without nausea or vomiting. No fever or chills.
She says she still has some discomfort on the right side of abdomen and using oxycodone [id number].
Complaints of loose stools but not per stool chart. She was told to let RN chart her stools but she flushes it without letting them know.
Objective Data
-
Labs:
Laboratory Results
12/30/23
05:56
WBC 8.2
Hgb 9.7 L
Hct 27.8 L
Plt Count 308
Sodium 133 L
Potassium 3.8
Chloride 99
Carbon Dioxide 25
BUN 22 H
Creatinine 1.0
Glucose 95
Calcium 9.8
Vital Signs:
Vital Signs
Temp Pulse Resp BP Pulse Ox
98.4 F 81 16 99/60 94
12/30/23 08:23 12/29/23 23:32 12/30/23 08:23 12/30/23 08:23 12/30/23 08:23
I&O
12/29/23 12/30/23 12/31/23
06:59 06:59 06:59
Intake Total 1200 / 1200 1959
Balance 1200 / 1200 1959
Review of Systems
-
Respiratory: Denies Trouble Breathing
Cardiac: Denies Chest Pain
Genitourinary: Denies Dysuria, Frequency or Difficulty Voiding
Neuro: Denies Dizzy
Physical Exam
-
General: No Apparent Distress
HEENT: Moist Mucous Membranes
Respiratory: Clear to Auscultation
Cardiac: Regular Rhythm and S1/S2
GI: Soft, Nontender, Nondistended and Normal Bowel Sounds
Neuro: AO x 3
Psych: Calm
Data Reviewed
-
CT Scan: Report Reviewed by me (ct a/p repeat)
Labs: Labs Reviewed by me
[2023-12-30] MEDS: CARAFATE 1 GRAM PO ×3 (09:41→17:30)
[2023-12-30] MEDS: PROTONIX 40 MG PO (09:42)
[2023-12-30] MEDS: FOLVITE 1 MG PO (09:46)
[2023-12-30] MEDS: ATIVAN 0.5 MG PO (09:47)
[2023-12-30] MEDS: VITAMIN B1 100 MG PO (09:47)
[2023-12-30] MEDS: DIFICID 200 MG PO ×2 (09:53→17:30)
[2023-12-30] MEDS: CYMBALTA DELAYED RELEASE 20 MG PO (09:53)
[2023-12-30] MEDS: VITAMIN D3 (cholecalciferol) 125 MCG PO (09:53)
[2023-12-30 10:59] LABS: Urine Albumin Negative (Neg - Trace); Urine Bilirubin 1+ (Negative); Urine Character Clear (Clear); Urine Color Yellow; Urine Glucose Negative (Negative); Urine Ketone Negative (Negative); Urine Leukocyte Trace (Negative); Urine Nitrite Negative (Negative); Urine Occult Blood Negative (Negative); Urine Specific Gravity 1.005 (<1.030); Urine Urobilinogen Negative (Neg - 1+); Urine pH 6.5 (5.0-9.0)
[2023-12-30 11:05] LABS: Urine Bacteria Few (Negative); Urine Red Blood Cell 0-2 /HPF (0-2); Urine Squamous Cell >30 /LPF (Few); Urine White Cell 0-2 /HPF (0-5)
[2023-12-30] MEDS: QUESTRAN LIGHT/PREVALITE 4 GRAMS PO (11:58)
--- NOTE | 2023-12-30 13:02 | CM ---
Addendum entered by Melinda Mckeon 12/30/23 16:47:
Patient is for discharge to home today, patient to contact [facility] for transport. Patient to have evening Dificid dose prior to discharge.
Plan; Home with [facility].
Original Note:
senior facilities manager reviewed patient's chart and spoke with patient and patient has selected [facility], [facility] liaison contacted. Patient's physician has ordered Dificid 200 mg BID, and case resource manager reached out to patient's pharmacy and they have ordered
medication and per pharmacist they will have medication tomorrow morning. Per pharmacy patient has no copay with medication.
Plan; Home with [facility] when stable.
--- NOTE | 2023-12-30 15:03 | VNURNOTE ---
Home Health Liaison spoke with patient by phone at 1500 to discuss [facility] nurse/therapy, visits, schedule and homebound status. Patient is agreeable only to SN and is declining PT/OT at this time. She understands that visits at home will be 2-3 x per
week to assess and teach medical management.
Patient is aware that [facility] will contact her for start of care in 1-2 days after discharge from .
[facility] referral completed in [facility].
[2023-12-30 15:42] VITALS: BP 121/79
--- NOTE | 2023-12-30 16:34 | W.DCSUMMARY ---
Discharge Summary
Discharge Data
Date of Admission: 12/22/23
Date of Discharge: 12/30/23
-
Pending Results: No
Hospital Course
primary diagnosis:
Acute pancolitis
Persistent C. difficile antigen positivity with negative toxin
Multiple admissions to hospital because of Gastrointestinal symptoms
History of recent gastroenteritis.
History of irritable bowel syndrome
severe anion gap metabolic acidosis suspected starvation/alcoholic ketoacidosis and diarrhea/ Vomiting related
Acute kidney injury secondary to dehydration which resolved.
Alcohol abuse
Right ankle pain suspected gouty arthritis. Elevated uric acid on this admission noted
Secondary diagnosis:
irritable bowel syndrome
History of cholecystectomy.
Anxiety disorder
Medication noncompliance.
Hospital course:
patient with above history presented with nausea and vomiting. He was here a week earlier with the GI symptoms attributed to gastroenteritis. Alcohol level 33. she was noted to be in severe anion gap metabolic acidosis which was felt probably
starvation/alcoholic ketoacidosis and diarrhea/vomiting related. She had associated acute kidney injury as well. With fluid support and bicarb infusion all her electrolyte disturbances resolved.
CT showed acute pancolitis. Stool routine cultures were negative. She had again C. difficile antigen positive and toxin negative. C. difficile studies recurrently showed antigen positivity without toxin production. She could be chronic
colonizers but with recurrent admissions due to GI symptoms it was felt appropriate to give a trial of C. difficile treatment. She was put on vancomycin without much benefit so switched to Dificid by GI on discharge. Her Questran which she was on
chronically was also restarted. No plans for endoscopy on this admission recommended.
In view of recurrent nonspecific abdominal discomfort a repeat CAT scan was done which showed resolution of colitis. Recommendation was to continue with the Dificid and Questran. Because challenges when she goes home she is noncompliant with the
medication including her GERD/esophagitis. She was restarted on PPI and Carafate here at this.
She was complaining of Rightankle pain and with elevated uric acid and severe dehydration gouty arthritis was suspected. She did respond to colchicine ; once her pain resolved that was stopped due to above diarrhea issues.
Consultants on board:
GI-Basia Mcpherson
Infectious disease-Dr. Haskins
Discharge Plan
-
Patient Disposition: Home with Home Care
Discharge Diagnosis/Procedures: Acute pancolitis. Persistent C. difficile antigen positive/toxin negative-colonization versus infection. Esophagitis. Severe metabolic acidosis suspected multifactorial-resolved
Diet: Regular
Activity: As tolerated
Driving Restrictions: Not until seen by your Dr
Bathing Restrictions: None
Other Services: VN
Referrals:
Krysta Griffin MD [Active] - 01/31/24 11:30 am (Please call to reschedule if you can not keep this appointment. If your insurance requires a referral please contact your primary care physician prior to your appointment. )
Ishaan Ames, DO [Family Provider] - in less than 1 week
Prescriptions:
New
sucralfate 1 gram Tablet
1 g PO ACHS Qty: 120 0RF
Rx Instructions:
not a new medication ;represcribing old medication
duloxetine 20 mg Capsule,Delayed Release(Dr/Ec)
20 mg PO DAILY Qty: 30 0RF
Rx Instructions:
Not new ; take it as prescribed prior
vancomycin 125 mg capsule
125 mg PO QID Qty: 36 0RF
Rx Instructions:
for 9 more days
folic acid 1 mg Tablet
1 mg PO DAILY Qty: 30 0RF
Rx Instructions:
use for a month
thiamine HCl (vitamin B1) 100 mg Tablet
100 mg PO DAILY Qty: 30 0RF
Rx Instructions:
use for a month
cholecalciferol (vitamin D3) 125 mcg (5,000 unit) Tablet
125 mcg PO DAILY Qty: 30 0RF
Rx Instructions:
not a new medication
Dificid 200 mg Tablet
200 mg PO BID Qty: 20 0RF
cholestyramine-aspartame [Cholestyramine Light] 4 gram Powder In Packet
1 ea PO DAILY Qty: 60 0RF
Continued
esomeprazole magnesium [Nexium] 20 mg Capsule,Delayed Release(Dr/Ec)
20 mg PO TID
lorazepam [Ativan] 0.5 mg tablet
0.5 mg PO BID
sumatriptan succinate [Imitrex] 50 mg Tablet
0 mg PO .COMPLEX
Rx Instructions:
take 1 tab at onset of headache; if no relief may repeat 1 tab after at least 2 hrs; max = 4 tabs/24 hr
Discharge Orders:
Discharge Patient (As Directed); Ordered 12/30/23
Ordered By: Manny Del Angel
Discharge Date and Time
Print Language: [place]
--- NOTE | 2023-12-30 16:45 | W.DS.TRANS ---
DC Summary - [employer]
-
Discharge Instructions:
Discharge Diagnosis/Procedures Acute pancolitis. Persistent C. difficile
antigen positive/toxin negative-colonization
versus infection. Esophagitis. Severe
metabolic acidosis suspected multifactorial-
resolved
Diet Regular
Activity As tolerated
Driving Restrictions Not until seen by your Dr
Bathing Restrictions None
Other Services VN
Instructions:
Stand-Alone Forms:
Changes to Home Medications: Yes
Discharge Medications:
DC Medications w/original date entered in [employer]
esomeprazole magnesium 20 mg capsule,delayed release (Nexium) 20 mg PO TID Gastrointestinal Issue 12/22/23
lorazepam 0.5 mg tablet (Ativan) 0.5 mg PO BID anxiety 12/22/23
sumatriptan succinate 50 mg tablet (Imitrex) 0 mg PO .COMPLEX migraine 12/22/23
cholecalciferol (vitamin D3) 125 mcg (5,000 unit) tablet 125 mcg PO DAILY #30 tabs 12/26/23
duloxetine 20 mg capsule,delayed release 20 mg PO DAILY #30 caps 12/26/23
folic acid 1 mg tablet 1 mg PO DAILY #30 tabs 12/26/23
sucralfate 1 gram tablet 1 g PO ACHS #120 tabs 12/26/23
thiamine HCl (vitamin B1) 100 mg tablet 100 mg PO DAILY #30 tabs 12/26/23
cholestyramine-aspartame 4 gram oral powder for susp in a packet (Cholestyramine Light) 1 ea PO DAILY #60 ea 12/30/23
fidaxomicin 200 mg tablet (Dificid) 200 mg PO BID #20 tabs 12/30/23
Home Medication Changes
New medication - Dificid
Pending Results: No
== END 2023-12-30 18:22 | disposition home health service (06) | DRG 372 ==
LOC: 4 WEST ACU 17:30
PROVIDERS: Internal Medicine Gastroenterology; Nurse Practitioner Adult Health; Nurse Practitioner Family; Radiology Diagnostic Radiology; ADMITTING PHYSICIAN Hospitalist; ATTENDING PHYSICIAN Internal Medicine; CONSULT PHYSICIAN Internal Medicine; EMERGENCY PHYSICIAN Emergency Medicine; FAMILY PHYSICIAN Family Medicine; OTHER PHYSICIAN Student in an Organized Health Care Education/Training Program
PROC: 02HV33Z Insertion of Infusion Device into Superior Vena Cava, Percutaneous Approach (ICD-10-PCS; 2023-12-22)
DX: A04.71 Enterocolitis due to Clostridium difficile, recurrent (principal); E87.1 Hypo-osmolality and hyponatremia; K62.5 Hemorrhage of anus and rectum; E87.29 Other acidosis; N17.9 Acute kidney failure, unspecified; I10 Essential (primary) hypertension; K21.00 Gastro-esophageal reflux disease with esophagitis, without bleeding; K44.9 Diaphragmatic hernia without obstruction or gangrene; D64.9 Anemia, unspecified; E83.42 Hypomagnesemia; Y90.1 Blood alcohol level of 20-39 mg/100 ml; E86.0 Dehydration; F10.10 Alcohol abuse, uncomplicated; M25.571 Pain in right ankle and joints of right foot; D72.829 Elevated white blood cell count, unspecified; E87.6 Hypokalemia; M79.671 Pain in right foot; M79.672 Pain in left foot; K83.8 Other specified diseases of biliary tract; R74.01 Elevation of levels of liver transaminase levels; M10.9 Gout, unspecified; T73.0XXA Starvation, initial encounter; X58.XXXA Exposure to other specified factors, initial encounter; F41.9 Anxiety disorder, unspecified; Z88.6 Allergy status to analgesic agent; Z87.891 Personal history of nicotine dependence; Z88.2 Allergy status to sulfonamides; Z90.49 Acquired absence of other specified parts of digestive tract; Z22.1 Carrier of other intestinal infectious diseases; Z91.148 Patient's other noncompliance with medication regimen for other reason
CPT/HCPCS: 71045; 74176; 74177; 80048; 80053; 80306; 80307; 81003; 81015; 82010; 82077; 82805; 82962; 82977; 83605; 83690; 83735; 84484; 84550; 85025; 85027; 85610; 86803; 87045; 87046; 87077; 87324; 87427; 87449; 87798; 89055; 93005; 96361; 96374; 96375; 97162; 99291; Q9967

== ENCOUNTER 2024-01-08 09:09 | Inpatient (IN) | payer MEDICARE, SELFPAY ==
[2024-01-06 09:36] VITALS: BMI 24.3
[2024-01-06 09:45] VITALS: BP 131/106
[2024-01-06 11:00] VITALS: BP 120/70
--- NOTE | 2024-01-06 11:03 | ED.GENMED ---
History of Present Illness
General
Chief Complaint: Chest Pain
Source: patient
Exam Limitations: none
Time Seen by Provider: 01/06/24 10:34
Nursing documentation reviewed up to this point in time: agreed with
Travel History
Have you had any contact with someone who has COVID-19?: No
Do you have any symptoms of coronavirus? Fever > 100 degrees, chills, cough, shortness of breath, sore throat, loss of taste or smell, muscle aches, or headache?: No
History of Present Illness
History of Present Illness:
68 y/o F with history of noncompliance, peptic ulcer/GI bleed, GERD, more recently colitis suspected to be C. difficile and is empirically on Dificid after recent hospitalization at the end of November, discharged on 4�8 for C. difficile antigen
positive but toxin negative
Initially called 911 today at home for chest discomfort that she started feeling last night. Patient says overnight she started having shortness of breath and pain in her chest with taking a deep breath. She ultimately felt worse and worse and so
she called 911. She also admits to having several episodes, 2-3 of vomiting and diarrhea. She is not sure what color her stool is. When asked about whether she is taking the antibiotics that she was prescribed for the C. difficile she says she
probably is not because she is very bad at taking medication. She is having some epigastric pain as well which is ongoing. Patient has not had a fever, cough, vomiting blood. Patient has had GI bleeding in the past related to a stomach ulcer and
alcohol abuse. Patient says she is not currently drinking alcohol
Patient is complaining of most of nausea currently.
Per EMS the patient was complaining of chest pain so they gave her 3 sublingual nitros which did briefly drop her pressure into the 80s but she recovered. She says that nitro made no difference
Past History
Past History
ED Past Medical History: Cancer (Skin Cancer face), GERD, HTN, Psychiatric (Aniety), Other (GI bleeding, HIatal hernia. Ulcers, anemia. ) and Other (recent colitis, severe esophagitis, alcohol abuse, benzodiazepine withdrawal)
ED Past Surgical History: Appendectomy, Cholecystectomy, Gynecological (hysterectomy, RUE epicondylitis X 2) and Orthopedic
Patient has exhibited threatening behavior?: No
PSI?: No
Social History
Tobacco: Former smoker
Alcohol: Occasional
Drug: None
Personal:
Living: alone
Family History
Family History: Other
Review of Systems
Review of Systems
Allergies reviewed?: Yes
All Other Systems: Not applicable
Phy Exam
Physical Exam
Physical Exam:
GENERAL: Alert , in no apparent distress
EYE: pupils equal and reactive
NECK: Supple
ENT: o/p clr, mmm.
CARDIAC: Regular rate and rhythm . Mild edema in her legs
LUNGS: Clear breath sounds bilaterally, no acute respiratory distress, no wheezes/rales/rhonchi
ABDOMEN: Soft, mild epigastric tenderness no r/g, no cvat, normal bowel sounds
Rectal exam performed by ED attending, heme positive black stool
NEUROLOGICAL: Alert and oriented, no focal neuro deficits
SKIN: Warm and dry, skin intact.
MUSCULOSKELETAL: Mild edema, well perfused. neg elva's sign
PSYCH: Normal and appropriate interaction.
Scores
Heart Score for Chest Pain Patients
STEMI patient?: No
History: Slightly or Non-Suspicious
ECG: Nonspecific Repolarization
Age: >/= 65 years
Risk Factors: 1 or 2 Risk Factors
Troponin: </= Normal Limit
Heart Score for Chest Pain Patients: 4
Heart Score Risk: 20.3% MACE over next 6 weeks
Course
Orders/Labs/Results
Orders:
Orders
01/06/24 09:54
Electrocardiogram (*1) Urgent
Reason for Study: Chest Pain
Cardiac Monitoring- Treatment ONCE
EKG- Treatment ONCE
IV Insert/Care/Rem.- Treatment PRN
O2 Therapy [RESP] Urgent
Titrate/Wean O2 to maintain O2 sat greater than (%): 90
Special Instructions: Maintain sats >/=90%
Pulse Ox/spot Check [RESP] Urgent
Quantity: 1
Special Instructions: ON ROOM AIR
01/06/24 10:55
Ondansetron Injectable [Zofran] 4 mg IV NOW STA
Pantoprazole [Protonix IV] 40 mg IV NOW STA
01/06/24 11:21
Complete Blood Count/With Diff Urgent
Comprehensive Metabolic Panel Urgent
D-Dimer Urgent
Prothrombin Time Urgent
Troponin I Urgent
01/06/24 12:27
CT Pe/abd/pel W Urgent
Reason For Exam: n/v/d, black stool, h/o PUD
01/06/24 12:44
Ondansetron Injectable [Zofran] 4 mg IV NOW STA
Pantoprazole 80 mg/100 ml Nss [Protonix] 80 mg in 100 ml IV NOW
01/06/24 14:20
Acetaminophen 1000MG/100Ml [Ofirmev] 1,000 mg in 100 ml IV ONCE
Acetaminophen IV Indication:: No NV & No Enteral Access
01/06/24 Dinner
NPO
Allow oral meds: Yes
Allow clear liquids: Sips of Clears
01/06/24 16:25
Admit/Transfer Patient As Directed
Co-Sign Provider:
Level of Care: Observation services
Assign to:: Medical/Surgical
Physician / Group: jerry
Diagnosis: gastritis
Code Status As Directed
Resuscitation Status: Full Code
01/06/24 19:54
0.9% Sodium Chloride 1000 ml [Nss] 1,000 ml IV 100 mls/hr
Ondansetron Injectable [Zofran] 4 mg IV Q6HPRN PRN
01/06/24 19:54
GASTROINTESTINAL CONSULT Routine
Consulting Provider: Sirena Elizabeth
Was physician already notified: Yes
Activity As Directed
Activity Level: As Tolerated
Pneumatic Compression Sleeves As Directed
Type: Knee high
Vital Signs As Directed
Frequency: Per unit guidelines
DX Deep Vein Thrombosis Video Routine
01/07/24 06:00
Complete Blood Count/With Diff IN AM
Comprehensive Metabolic Panel IN AM
Abnormal Lab Results
01/06/24
11:21
WBC 12.5 H 10^3/uL
(4.8-10.8)
RBC 3.18 L 10^6/uL
(4.20-5.40)
Hgb 10.4 L g/dL
(12.0-16.0)
Hct 29.4 L %
(37.0-47.0)
MCH 32.7 H pg
(27.0-31.0)
RDW 15.3 H %
(11.5-14.5)
Abs Immat Gran (auto) 0.1 H 10^3/uL
(0-0.05)
Absolute Neuts (auto) 10.3 H 10^3/uL
(1.4-6.5)
Absolute Lymphs (auto) 1.1 L 10^3/uL
(1.2-3.4)
Absolute Monos (auto) 0.9 H 10^3/uL
(0.1-0.6)
Neutrophils % 82.6 H %
(42.2-75.2)
Lymphocytes % 8.8 L %
(20.5-51.1)
D-Dimer 1.19 H ug/mlFEU
(0.00-0.50)
Sodium 134 L mmol/L
(135-145)
Glucose 132 H mg/dl
(70-99)
AST 40 H U/L
(14-36)
Alkaline Phosphatase 154 H U/L
(38-126)
01/06/24 11:21
01/06/24 11:21
Vital Signs
Initial and Last Documented VS:
Initial Vital Signs
Pulse Resp
74 22
01/06/24 09:44 01/06/24 09:44
Last Documented Vital Signs
Temp Pulse Resp BP Pulse Ox
97.3 F 92 20 157/85 96
01/06/24 20:00 01/06/24 20:00 01/06/24 20:00 01/06/24 20:00 01/06/24 20:00
MDM/Problems Addressed
Differential Diagnosis Includes:
Gastritis, peptic ulcer disease, GI bleed, PE, ACS, chest wall pain, symptomatic anemia
MDM/Problems Addressed:
68 y/o F noncompliant [facility] meds, here a few weeks ago for a few days for smiilar symptoms, n/v/d, [place]; has h/o PUD and GI bleed as well; had c diff toxin neg but ag positive and was started on dificid by ID; went home on 12/29 but very noncompliant
with meds so she probably hasn't been taking; today came in for multiple complaints - n/v/d and chest pain; was given nitro by EMS but no improvement; ekg and trop neg; she had nausea, vomiting and diarrhea here, with heme pos black stool; ct c/a/p
neg for PE, has some unchanged chronic findings but otherwise no significant colitis;
still having abd pain/chest pain which i believe is more related to GI than cardiac; on protonix gtt
*Critical Care Note
Total Time (30-74mins, 75-104mins- exclusive of procedures): Not Applicable
ED Attending Note
-
Portions of this chart may have been created with voice recognition software.� Occasional wrong word or��sound alike� substitutions may have occurred due to the inherent limitations of voice recognition software.
Discharge Plan
Departure
Patient Disposition: Admit
Date of Disposition: 01/06/24
Time of Disposition: 15:45
Admit to: Telemetry
Presentation/result/management discussed w/ accepting MD/DO: Hospitalist
Condition: Fair
Covid-19: Not Applicable
Discharge Problem:
GI bleed, Nausea, vomiting and diarrhea, Intractable nausea, Chest pain
Interventions
Interventions:
*Risk Screen - Suicide Last Done: 01/06/24 20:07
*General Assessment Last Done: 01/06/24 09:48
*Neglect/Abuse Screening Last Done: 01/06/24 09:48
ED- Fall Risk Assessment Last Done: 01/06/24 11:15
*ED COVID-19 Vaccine History Last Done: 01/06/24 09:47
*Nursing Disposition Last Done: 01/06/24 19:39
ED- Cardiac Assessment Last Done: 01/06/24 11:15
Discharge Date and Time
Discharge Date/Time: 01/06/24 19:40
[2024-01-06] MEDS: ZOFRAN 4 MG IV ×2 (11:23→12:57)
[2024-01-06] MEDS: PROTONIX IV 40 MG IV (11:23)
--- NOTE | 2024-01-06 11:27 | PHANOTE ---
med rec note- patient unable to review medication list at this time, patient was just here. patient has no ecw last note in ecw was patient going to [facility] on 10/31/23 no other ecw inputs.
[2024-01-06 11:30] LABS: % Basophils 0.8 % (0-2); % Eosinophils 0.1 % (0-6); % Immature Granulocytes 0.5 % (0-0.5); % Lymphocytes 8.8 % (20.5-51.1); % Monocytes 7.2 % (1.7-9.3); % Neutrophils 82.6 % (42.2-75.2); Absolute Basophils 0.1 10^3/uL (0-0.2); Absolute Immature Granulocytes 0.1 10^3/uL (0-0.05); Absolute Lymphocytes 1.1 10^3/uL (1.2-3.4); Absolute Monocytes 0.9 10^3/uL (0.1-0.6); Absolute Neutrophils 10.3 10^3/uL (1.4-6.5); Hematocrit 29.4 % (37.0-47.0); Hemoglobin 10.4 g/dL (12.0-16.0); Mean Corp Hgb Conc. 35.4 g/dL (33.0-37.0); Mean Corpuscular Hgb 32.7 pg (27.0-31.0); Mean Corpuscular Volume 92.5 fL (81.0-99.0); Mean Platelet Volume 8.9 fL (7.4-10.4); Nucleated Red Blood Cells % 0 %; Platelet Count 352 10^3/uL (130-400); Red Blood Cell Count 3.18 10^6/uL (4.20-5.40); Red Cell Dist. Width 15.3 % (11.5-14.5); White Blood Cell Count 12.5 10^3/uL (4.8-10.8)
[2024-01-06 11:43] LABS: ALT (SGPT) 29 U/L (0-35); AST (SGOT) 40 U/L (14-36); Albumin 4.4 g/dl (3.5-5.0); Alkaline Phosphatase 154 U/L (38-126); Blood Urea Nitrogen 13 mg/dl (7-17); Calcium 9.1 mg/dl (8.4-10.2); Carbon Dioxide 22 mmol/L (22-30); Chloride 99 mmol/L (98-107); Estimated Creatinine Clearance 52 ml/min; Glucose 132 mg/dl (70-99); Sodium 134 mmol/L (135-145); Total Bilirubin 1.3 mg/dl (0.2-1.3); eGFR > 60.00
[2024-01-06 11:48] LABS: D-Dimer 1.19 ug/mlFEU (0.00-0.50); INR 0.93; PT 12.3 Sec (11.4-14.6)
[2024-01-06 11:55] LABS: Troponin I < 0.012 ng/ml
[2024-01-06 12:00] VITALS: BP 123/76
[2024-01-06] MEDS: PROTONIX 100 IV ×2 (12:57→22:51)
[2024-01-06] MEDS: OFIRMEV 100 IV (14:31)
--- NOTE | 2024-01-06 16:27 | HPS.HSE ---
Addendum entered and electronically signed by Angel Pino MD 01/06/24 16:36:
Outpatient follow up with urology regarding right kidney mass.
Original Note:
Family Physician
-
Family Physician: Ishaan Ames
Chief Complaint
-
chest/abdominal pain
History of Present Illness
68-year-old female past medical history of C. difficile antigen positivity, GERD/esophagitis, peptic ulcer with prior bleeding, IBS, alcohol use disorder, suspected gout, anxiety, presenting for chest/abdominal discomfort since last night.
Yesterday she developed pain in the bilateral lower quadrants as well as epigastric region radiating to the chest associated with some shortness of breath and 2-3 episodes of vomiting. Patient states her bowel movements are loose but she has been
having 1 bowel movement a day which is an improvement from her bowel movements when she was hospitalized last week. She has not been checking the color of her stool. She states that she has not been compliant with medications she was prescribed for
C. difficile. Patient denies fever, cough, vomiting blood. Patient has not drank alcohol in 2 weeks. Denies any difficulty swallowing or pain with swallowing or weight loss.
EMS gave patient 3 sublingual nitroglycerin briefly dropped her blood pressure into the 80s but since resolved. Nitro did not help with the chest pain.
Patient was admitted a week ago for nausea and vomiting. Patient was found to have severe anion gap metabolic acidosis probably from starvation/alcoholic ketoacidosis and diarrhea/vomiting related. She also had JULI. Patient given IV fluids with
bicarbonate and electrolytes repleted. Patient CT abdomen showed acute pancolitis. She again had C. difficile antigen positivity and toxin negative. Patient was given trial of C. difficile treatment started on p.o. vancomycin which was switched
to Dificid due to lack of improvement. She was also treated with Questran. Colonoscopy is recommended. Repeat CT scan showed resolution of colitis. She was also restarted on PPI and Carafate which she was noncompliant with. She was also treated
with colchicine for right ankle suspected gout.
Medical History
Past Medical History
Past Medical History: Reports Psychiatric and Other (history of C. difficile antigen positivity, GERD/esophagitis, peptic ulcer with prior bleeding, IBS, alcohol use disorder, suspected gout, anxiety,)
Past Surgical History: Reports Other ( Appendectomy, Cholecystectomy, Gynecological (hysterectomy, RUE epicondylitis X 2) and Orthopedic)
Social History
Tobacco: Non-smoker
Alcohol: Former
Drug: None
Family History
Family History: Not pertinent
Allergies / Home Medications
Allergies reflects when Allergies were last updated in [employer].
Home Medications with original date entered in [employer]
Allergy/Medication List:
Allergies
Allergy/AdvReac Type Severity Reaction Status Date / Time
aspirin Allergy Unknown Verified 12/10/23 11:05
gabapentin Allergy Unknown Verified 12/10/23 11:05
NSAIDS (Non-Steroidal Allergy Unknown Verified 12/10/23 11:05
Anti-Inflamma
[id number] Reductase Allergy Swelling Verified 12/10/23 11:05
Inhibitor
Sulfa (Sulfonamide Allergy Unknown Verified 12/10/23 11:05
Antibiotics)
Home Medications
esomeprazole magnesium 20 mg capsule,delayed release (Nexium) 20 mg PO TID Gastrointestinal Issue 12/22/23
lorazepam 0.5 mg tablet (Ativan) 0.5 mg PO BID anxiety 12/22/23
sumatriptan succinate 50 mg tablet (Imitrex) 0 mg PO .COMPLEX migraine 12/22/23
cholecalciferol (vitamin D3) 125 mcg (5,000 unit) tablet 125 mcg PO DAILY #30 tabs 12/26/23
duloxetine 20 mg capsule,delayed release 20 mg PO DAILY #30 caps 12/26/23
folic acid 1 mg tablet 1 mg PO DAILY #30 tabs 12/26/23
sucralfate 1 gram tablet 1 g PO ACHS #120 tabs 12/26/23
thiamine HCl (vitamin B1) 100 mg tablet 100 mg PO DAILY #30 tabs 12/26/23
cholestyramine-aspartame 4 gram oral powder for susp in a packet (Cholestyramine Light) 1 ea PO DAILY #60 ea 12/30/23
fidaxomicin 200 mg tablet (Dificid) 200 mg PO BID #20 tabs 12/30/23
Review of Systems
-
History Source: Patient
A 12 point ROS was completed and negative except as noted: Yes
Constitutional: Reports No Symptoms
EENT: Reports No Symptoms
Respiratory: Reports No Symptoms
Cardiac: Reports No Symptoms
Abdomen/GI: Reports See HPI
: Reports No Symptoms
Musculoskeletal: Reports No Symptoms
Skin: Reports No Symptoms
Neurological: Reports No Symptoms
Endocrine: Reports No Symptoms
Hematologic/Lymphatic: Reports No Symptoms
Psych: Reports No Symptoms
Physical Exam
Vital Signs
Vital Signs
Temp Pulse Resp BP Pulse Ox
98.3 F 88 13 123/76 98
01/06/24 09:45 01/06/24 13:00 01/06/24 13:00 01/06/24 12:00 01/06/24 13:00
Physical Exam
General: Well Developed, Well Nourished and No Apparent Distress
HEENT: NormoCephalic, Moist mucous membranes and Atraumatic
Respiratory: Clear
Cardiac: S1/S2 and Regular Rhythm; No Murmur or Rub
GI: Soft, Non Distended, Normal Bowel Sounds and Tender (right and left quadrant tenderness, epigastric and chest tenderness ); No Organomegaly
Rectal: Deferred by Provider
Musculoskeletal: No Clubbing, No Cyanosis and No Edema
Skin: No Rash
Neuro: Nonfocal/grossly intact
Laboratory Results
-
01/06/24 11:21
01/06/24 11:21
Laboratory Results
PT 12.3 Sec (11.4-14.6) 01/06/24 11:21
PT Cancelled 01/06/24 11:21
INR 0.93 01/06/24 11:21
INR Cancelled 01/06/24 11:21
Total Bilirubin 1.3 mg/dl (0.2-1.3) 01/06/24 11:21
AST 40 U/L (14-36) H 01/06/24 11:21
ALT 29 U/L (0-35) 01/06/24 11:21
Alkaline Phosphatase 154 U/L (38-126) H 01/06/24 11:21
Troponin I < 0.012 ng/ml 01/06/24 11:21
Data Reviewed
-
Lab Data: Labs Reviewed by me
Old Records: Reviewed
Impression/Plan
-
IMPRESSION:
PLAN:
# Abdominal/chest pain likely GERD/gastritis due to medication noncompliance
# History of esophagitis/peptic ulcer
-Troponin negative
-EKG shows normal sinus rhythm
-Elevated D-dimer prompted CT PE
-CT PE /abdomen/pelvis shows no pulmonary embolism, mild interstitial edema, small hiatal hernia, mild mural thickening of the esophagus diffusely, hepatic fatty infiltration, 1.2 cm increased attenuation of the lower pole of the right kidney,
diverticulosis
-IV fluids
-Protonix drip
-Continue sucralfate
-N.p.o. with sips
-GI consulted
#Recent C. difficile antigen positivity/toxin negative possible chronic colonization versus acute infection
-Loose stools at this time
-Has not been compliant with Dificid
History of diarrhea predominant IBS
-Continue Questran
Chronic anemia
-Hemoglobin stable
History of alcohol use disorder
-Continue folic acid and thiamine
-Continue as needed Ativan
-No alcohol use in 2 weeks
Recent suspected gout right ankle
Vitamin D deficiency
History of cholecystectomy with chronically dilated CBD
Anxiety/depression
-Continue duloxetine
Full code
DVT prophylaxis�SCDs
NPO
[2024-01-06] MEDS: BENTYL 10 MG PO (18:41)
[2024-01-06 20:00] VITALS: BP 157/85
[2024-01-06] MEDS: CARAFATE 1 GRAM PO (21:19)
[2024-01-06] MEDS: DIFICID 200 MG PO (21:20)
[2024-01-06] MEDS: NSS 1000 IV (21:21)
[2024-01-06] MEDS: ATIVAN 0.5 MG PO (21:21)
[2024-01-06 23:00] VITALS: BP 92/35
[2024-01-07] MEDS: NSS 1000 IV ×2 (06:20→16:12)
[2024-01-07] MEDS: TYLENOL 650 MG PO ×2 (06:33→18:00)
[2024-01-07 07:30] VITALS: BP 152/81
[2024-01-07] MEDS: CYMBALTA DELAYED RELEASE 20 MG PO (08:28)
[2024-01-07] MEDS: CARAFATE 1 GRAM PO ×4 (08:28→21:40)
[2024-01-07] MEDS: DIFICID 200 MG PO ×2 (08:28→20:32)
[2024-01-07] MEDS: FOLVITE 1 MG PO (08:28)
[2024-01-07] MEDS: VITAMIN D3 (cholecalciferol) 125 MCG PO (08:28)
[2024-01-07] MEDS: ATIVAN 0.5 MG PO ×2 (08:28→20:32)
[2024-01-07] MEDS: VITAMIN B1 100 MG PO (08:28)
[2024-01-07 08:36] LABS: % Basophils 0.8 % (0-2); % Eosinophils 1.7 % (0-6); % Immature Granulocytes 0.7 % (0-0.5); % Lymphocytes 18.8 % (20.5-51.1); % Monocytes 7.7 % (1.7-9.3); % Neutrophils 70.3 % (42.2-75.2); Absolute Basophils 0.1 10^3/uL (0-0.2); Absolute Eosinophils 0.1 10^3/uL (0-0.7); Absolute Immature Granulocytes 0.1 10^3/uL (0-0.05); Absolute Lymphocytes 1.4 10^3/uL (1.2-3.4); Absolute Monocytes 0.6 10^3/uL (0.1-0.6); Absolute Neutrophils 5.3 10^3/uL (1.4-6.5); Hematocrit 29.5 % (37.0-47.0); Hemoglobin 10.4 g/dL (12.0-16.0); Mean Corp Hgb Conc. 35.3 g/dL (33.0-37.0); Mean Corpuscular Hgb 33.1 pg (27.0-31.0); Mean Corpuscular Volume 93.9 fL (81.0-99.0); Mean Platelet Volume 9.5 fL (7.4-10.4); Nucleated Red Blood Cells % 0 %; Platelet Count 308 10^3/uL (130-400); Red Blood Cell Count 3.14 10^6/uL (4.20-5.40); Red Cell Dist. Width 15.4 % (11.5-14.5); White Blood Cell Count 7.6 10^3/uL (4.8-10.8)
[2024-01-07 09:05] LABS: ALT (SGPT) 23 U/L (0-35); AST (SGOT) 35 U/L (14-36); Albumin 3.8 g/dl (3.5-5.0); Alkaline Phosphatase 131 U/L (38-126); Blood Urea Nitrogen 8 mg/dl (7-17); Calcium 8.6 mg/dl (8.4-10.2); Carbon Dioxide 23 mmol/L (22-30); Chloride 106 mmol/L (98-107); Estimated Creatinine Clearance 47 ml/min; Glucose 108 mg/dl (70-99); Potassium 3.8 mmol/L (3.5-5.1); Sodium 136 mmol/L (135-145); Total Bilirubin 1.5 mg/dl (0.2-1.3); Total Protein 6.4 g/dl (6.3-8.2); eGFR > 60.00
[2024-01-07] MEDS: PROTONIX 100 IV (09:42)
[2024-01-07] MEDS: QUESTRAN LIGHT/PREVALITE PO (09:43)
--- NOTE | 2024-01-07 12:15 | CON.GI ---
Addendum entered and electronically signed by Ramin Warner MD 01/07/24 15:12:
I saw and examined the patient.
The ADDICTIONS COUNSELOR or PA's note was reviewed and I agree with the note.
Comment: 68yo female presents with chest/abd pain, diarrhea, noted to be black heme positive. Hgb 10.4. She had C diff Ag positive, toxin negative 12/23 and treated with Dificid, no improvement switched to vanco/questran with improvement. Has had
several EGDs last year showing grade C/D esophagitis. She admittedly does not take PPI or carafate after d/c due to difficulty getting pills out of blister pack. Repeat Hgb 10.4 unchanged. Had some diarrhea, improving. Repeat C diff Ag positive,
toxin negative. Denies NSAIDs
REC:
Hgb stable
Change to protonix BID
Cont Dificid for now
Advance diet and monitor diarrhea
Encouraged her to take PPI BID after d/c
Original Note:
Consultation
-
Date/Time Consultation Requested: 01/06/24 @ 19:54
Date/Time Consultation Performed: 01/07/24 @ 11:00
Requesting Provider: Dr. Pino
Performing Provider: NIDHI Nunez; Dr. Ramin Warner
Reason for Consultation: nausea, vomiting, diarrhea
Medical History
Chief Complaint / HPI
Chief Complaint: nausea, vomiting, diarrhea
History of Present Illness:
The patient is a 68-year-old female with a past medical history significant for GERD, hiatal hernia, hypertension, prior daily alcohol use, colitis, LA grade C/D esophagitis, recent admission with suspected C. difficile infection, prior GI bleed
secondary to peptic ulcer, IBS, suspected gout, anxiety, who presented to the emergency room with complaints of chest and abdominal pain. Upon review of prior records, the patient had been previously admitted earlier this month with similar
symptoms including nausea, vomiting, and diarrhea. At that time had C. difficile testing which was antigen positive but toxin negative. She was treated with Dificid with no significant improvement, then placed on oral vancomycin and Questran. She
did improve symptomatically during that admission. CT imaging at that time did show moderate pancolitis with subsequent imaging showing improvement. She did also have some gastric distention as well on imaging but was tolerating diet at the time
of discharge. She has had prior EGD's in 2022 showing significant esophagitis. It is noted she had some complaints of right-sided abdominal pain as well which had improved. She presents again with complaints of nausea and vomiting times several
episodes of bilious emesis at home. She notes that she was also having increased diarrhea again as well although was not compliant with completing her course of vancomycin. She denies any melena or hematochezia and has not had any further diarrhea
as of this morning. She feels that she has lost some weight as her appetite has been poor but is unsure as to the amount of weight she is lost. She continues with some right upper quadrant pain as well which is described as sharp in nature but
improved after eating a meal. She does endorse bloating as well especially after eating meals. She denies any further significant pain as of this morning and her nausea has improved. She notes that she was not compliant with her PPI and Carafate
at home as well. She has not had any alcohol in over 2 weeks as she has not been feeling well, but does enjoy drinking a bloody Ivette. She otherwise denies any fevers, chills, chest pain, shortness of breath, dysphagia, odynophagia, hematemesis, or
constipation. She denies any family history of GI cancers or disorders. Last EGD as noted below. She underwent a CT angio of the abdomen, pelvis, and chest which was negative for PE, but did show a small hiatal hernia, some mild mural thickening
of the esophagus questioning esophagitis, hepatic fatty infiltration of the liver, and indeterminate 1.2 cm right kidney lesion, along with other nonurgent findings. Routine labs on admission showed a WBC 12.5, hemoglobin 10.4, platelets 352,000,
sodium 134, potassium 4.0, BUN 13, creatinine 0.9, glucose 132, total bilirubin 1.3, AST 40, ALT 129, alk phos 154. She was placed on a Protonix drip, made n.p.o., and admitted for further evaluation by GI. She was also continue on Carafate ACHS
and was continued on Dificid as she did not complete her course as outpatient. This morning she is feeling improved.
Past Medical History
Past Medical History: GERD (LA grade C/D esophagitis on EGD in 2022, questionable history of peptic ulcer disease with prior GI bleed), Psychiatric (Anxiety, depression) and Other (IBS, suspected gout, history of C. difficile antigen positive,
chronic anemia)
Past Surgical History: Appendectomy, Cholecystectomy and Gynecological (Hysterectomy, right upper extremity epicondylitis x 2)
Social History
Tobacco: Non-Smoker
Alcohol: Daily
Drug: None
Family History
Family History: Reviewed & Not Pertinent
Allergies / Home Medications
Allergy/AdvReac Type Severity Reaction Status Date / Time
aspirin Allergy Unknown Verified 12/10/23 11:05
gabapentin Allergy Unknown Verified 12/10/23 11:05
NSAIDS (Non-Steroidal Allergy Unknown Verified 12/10/23 11:05
Anti-Inflamma
[id number] Reductase Allergy Swelling Verified 12/10/23 11:05
Inhibitor
Sulfa (Sulfonamide Allergy Unknown Verified 12/10/23 11:05
Antibiotics)
�Medication �Instructions �Recorded
esomeprazole magnesium 20 mg 20 mg PO TID Gastrointestinal Issue 12/22/23
capsule,delayed release (Nexium)
lorazepam 0.5 mg tablet (Ativan) 0.5 mg PO BID anxiety 12/22/23
sumatriptan succinate 50 mg tablet 0 mg PO .COMPLEX migraine 12/22/23
(Imitrex)
cholecalciferol (vitamin D3) 125 125 mcg PO DAILY #30 tabs 12/26/23
mcg (5,000 unit) tablet
duloxetine 20 mg capsule,delayed 20 mg PO DAILY #30 caps 12/26/23
release
folic acid 1 mg tablet 1 mg PO DAILY #30 tabs 12/26/23
sucralfate 1 gram tablet 1 g PO ACHS #120 tabs 12/26/23
thiamine HCl (vitamin B1) 100 mg 100 mg PO DAILY #30 tabs 12/26/23
tablet
cholestyramine-aspartame 4 gram 1 ea PO DAILY #60 ea 12/30/23
oral powder for susp in a packet
(Cholestyramine Light)
fidaxomicin 200 mg tablet (Dificid) 200 mg PO BID #20 tabs 12/30/23
Review of Systems
-
History Source: Patient
Constitutional: Reports Weight Loss
EENT: Reports No Symptoms
Respiratory: Reports No Symptoms
Cardiac: Reports No Symptoms
Abdomen/GI: Reports Abdominal Pain (Right upper quadrant), Nausea, Vomiting and Diarrhea
: Reports No Symptoms
Musculoskeletal: Reports No Symptoms
Skin: Reports No Symptoms
Neurological: Reports No Symptoms
Vital Signs
Temp Pulse Resp BP Pulse Ox
99.1 F 82 18 152/81 99
01/07/24 07:30 01/07/24 07:30 01/07/24 07:30 01/07/24 07:30 01/07/24 07:30
Physical Exam
Exam
General: Well Developed and Other (Pale, chronically ill-appearing female in no significant distress)
HEENT: Normocephalic, Anicteric and Atraumatic
Respiratory: Clear
Cardiac: S1/S2 and Regular Rhythm
Breast: Deferred by me
GI: Soft, Non Tender, Non Distended and Normal Bowel Sounds
Rectal: Deferred by Provider
Musculoskeletal: No Edema
Skin: Warm and Dry
Neuro: Awake and Alert
Psych: Calm
Results
WBC 7.6 10^3/uL (4.8-10.8) 01/07/24 07:54
Hgb 10.4 g/dL (12.0-16.0) L 01/07/24 07:54
Hct 29.5 % (37.0-47.0) L 01/07/24 07:54
MCV 93.9 fL (81.0-99.0) 01/07/24 07:54
Plt Count 308 10^3/uL (130-400) 01/07/24 07:54
Absolute Neuts (auto) 5.3 10^3/uL (1.4-6.5) 01/07/24 07:54
PT 12.3 Sec (11.4-14.6) 01/06/24 11:21
PT Cancelled 01/06/24 11:21
INR 0.93 01/06/24 11:21
INR Cancelled 01/06/24 11:21
Sodium 136 mmol/L (135-145) 01/07/24 07:54
Potassium 3.8 mmol/L (3.5-5.1) 01/07/24 07:54
Chloride 106 mmol/L (98-107) 01/07/24 07:54
Carbon Dioxide 23 mmol/L (22-30) 01/07/24 07:54
BUN 8 mg/dl (7-17) 01/07/24 07:54
Creatinine 1.0 mg/dL (0.6-1.0) 01/07/24 07:54
Calcium 8.6 mg/dl (8.4-10.2) 01/07/24 07:54
Total Bilirubin 1.5 mg/dl (0.2-1.3) H 01/07/24 07:54
AST 35 U/L (14-36) 01/07/24 07:54
ALT 23 U/L (0-35) 01/07/24 07:54
Alkaline Phosphatase 131 U/L (38-126) H 01/07/24 07:54
Diagnostic Image Results:
Prior GI Procedures:
EGD:
06/11/23, Dr. Warner
�� � � � � � � � - LA Grade C reflux esophagitis with no bleeding.
�� � � � � � � � � � � - Normal stomach.
�� � � � � � � � � � � - Normal examined duodenum.
03/15/23, Dr. Rosen
� � � � � � � � - LA Grade D reflux esophagitis. Slight improvement
�� � � � � � � � � � � from previous exam.
�� � � � � � � � � � � - Medium-sized hiatal hernia.
�� � � � � � � � � � � - No gross lesions in the entire stomach.
�� � � � � � � � � � � - Normal duodenal bulb, first portion of the duodenum
�� � � � � � � � � � � and second portion of the duodenum.
12/17/22, Dr. Rosen� � � � �
� � � � � � � � - LA Grade D esophagitis. Circumferential superficial
�� � � � � � � � � � � ulcers in distal esophagus.
�� � � � � � � � � � � - Medium-sized hiatal hernia.
Colonoscopy:� 5-10 years ago at [facility] per pt, unknown results
Assessment / Plan
-
The patient is a 68-year-old female with a past medical history significant for GERD, hiatal hernia, hypertension, prior daily alcohol use, colitis, LA grade C/D esophagitis, recent admission with suspected C. difficile infection, prior GI bleed
secondary to peptic ulcer, IBS, suspected gout, anxiety, who presented to the emergency room with complaints of chest and abdominal pain. Noted with prior admission at the beginning of this month with similar symptoms treated for possible C.
difficile infection with Dificid and oral vancomycin with improvement in symptoms. He was also started on Questran. Celiac negative historically. In regards to her upper GI symptoms she was placed on PPI twice daily and Carafate, but she was not
compliant with these medications at home therefore returned with recurrent symptoms. Prior CT imaging did show pancolitis and a distended stomach. CTA imaging on this admission showing no overt find to explain her current symptoms but did show
likely esophagitis. She is improving clinically and requesting liquids.
Problem list:
-Recurrent nausea/vomiting
-Recurrent nonbloody diarrhea, prior C. difficile showing antigen positive but toxin negative
-Recent admission with pancolitis
-History of alcohol abuse
-GERD
-CT imaging showing a 1.2 cm renal lesion, fatty liver, small hiatal hernia, mild interstitial edema, diverticulosis
-Mildly elevated LFTs
Other pertinent medical history:
-Hypertension
-Hiatal hernia
-Anxiety/depression
-IBS
-Suspected gout
Recommendations:
-Etiology of ongoing symptoms possibly secondary to gastroenteritis/viral etiology versus gastroparesis versus severe reflux versus postinfectious IBS versus other.
-Agree to continue PPI twice daily and Carafate ACHS, as she is already improving symptomatically
-To consider gastric emptying study given her recurrent symptoms and significant esophagitis as she admits to early satiety and bloating symptoms
-If symptoms do not improve ultimately, to consider repeat EGD given her history as above
-Will trial clear liquid diet
-Send stool studies to rule out repeat infection
-She does endorse right upper quadrant pain, if ongoing to consider right upper quadrant ultrasound. LFTs essentially normal aside from a mildly elevated AST and alk phos with a history of intermittent elevation of total bilirubin. Will add a
direct bilirubin. Unlikely biliary etiology as the pain improves after eating.
-Continue Dificid for now, but unclear if she needs this
-Follow stool studies and stool output
-Advised again on alcohol cessation. She has not had an alcoholic beverage in over 2 weeks
-Continue Questran daily
-She will need outpatient follow-up to evaluate for colonoscopy as previously recommended. Will also recommend fatty liver evaluation as well given her history of alcohol use and mildly abnormal LFTs.
-Will follow
-
-
Thank you for consultation and allowing me to participate in the patient's care. Please call the automation specialist GI physician during the after hours with any questions or concerns.
[2024-01-07 14:07] LABS: Glycohemoglobin (HgbA1c) 5.1 % (4.0-5.6)
[2024-01-07 15:00] VITALS: BP 128/78
--- NOTE | 2024-01-07 15:08 | CM ---
quantitative manager reviewed patient's chart and met with patient and patient lives with friend in a one story home, patient was independent with adl's and ambulation, patient has a prescription plan and uses [facility]. patient is current with [facility].
PCP: Dr. Ames
Plan; Home with friend and [facility].
--- NOTE | 2024-01-07 15:13 | W.PN.UPDATE ---
Update Note
Progress Note Update
For billing purposes
--- NOTE | 2024-01-07 16:21 | W.PN.HOSP.TC ---
Today's Communication/Plan
-
Once tolerated
P.o. PPI.
Dificid.
Assessment / Plan
Assessment / Plan
Impression:
Presentation with recurrent nausea and vomiting and diffuse abdominal pain
Recurrent nonbloody diarrhea
Recently C. difficile antigen positive toxin negative
Recent hospitalization with pancolitis
History of alcohol use disorder.
GERD.
IBS
Essential hypertension
Hiatal hernia
Chronic normocytic anemia
Anxiety/depression
Gout
Plan:
Abdominal/lower chest pain loose stools suspect secondary to GERD/gastritis/gastroenteritis.
ECG with no ischemia
Negative cardiac markers
Elevated dimer prompted CT PE
CT PE abdomen and pelvis negative for pulmonary embolism, mild interstitial edema, small hiatal hernia, mild mural thickening of the esophagus diffusely, hepatic fatty infiltration, 1.2 cm increased attenuation of the lower pole of the right kidney.
Diverticulosis.
GI input appreciated
Clear liquid diet.
Transition off Protonix drip to p.o. twice daily.
Stool cultures pending
Continue Dificid
Continue Questran
Chronic anemia
-Hemoglobin stable
History of alcohol use disorder
-Continue folic acid and thiamine
-Continue as needed Ativan
-No alcohol use in 2 weeks
Recent suspected gout right ankle
Vitamin D deficiency
History of cholecystectomy with chronically dilated CBD
Anxiety/depression
-Continue duloxetine
Full code
DVT prophylaxis�SCDs
Anticipated Discharge: 24 - 48 hours
Subjective/Interval History
-
Date of Service: January 07, 2024
Objective Data
-
Labs:
Laboratory Results
01/07/24
07:54
WBC 7.6
Hgb 10.4 L
Hct 29.5 L
Plt Count 308
Sodium 136
Potassium 3.8
Chloride 106
Carbon Dioxide 23
BUN 8
Creatinine 1.0
Glucose 108 H
Calcium 8.6
Total Bilirubin 1.5 H
AST 35
ALT 23
Alkaline Phosphatase 131 H
Vital Signs:
Vital Signs
Temp Pulse Resp BP Pulse Ox
99.1 F 82 18 152/81 99
01/07/24 07:30 01/07/24 07:30 01/07/24 07:30 01/07/24 07:30 01/07/24 07:30
Physical Exam
-
General: Well Developed and No Apparent Distress
HEENT: Normocephalic, Atraumatic and Moist Mucous Membranes
Respiratory: Clear to Auscultation
Cardiac: Regular Rhythm and S1/S2; Negative Murmur, Rub or Gallop
GI: Soft, Nontender, Nondistended and Normal Bowel Sounds; Negative Organomegaly
Rectal: Deferred by Provider
Musculoskeletal: No Clubbing, No Cyanosis and No Edema
Skin: Negative Rash
Neuro: Awake, Alert, Oriented and Nonfocal/Grossly Intact
[2024-01-07] MEDS: PROTONIX 40 MG PO (20:32)
[2024-01-07 22:30] VITALS: BP 125/68
[2024-01-08 00:12] VITALS: BP 125/68
[2024-01-08] MEDS: NSS IV (04:46)
--- NOTE | 2024-01-08 05:15 | DOWNTIME ---
There was a [employer] Client Direct [employer]ill [employer]aster Downtime on 01/08/2024 from 0100 to 01/08/2024 at 0439. Downtime documentation of patient's care, including medication administrations, has been reconciled in the electronic record per guidelines. Refer to the
patient's paper chart under the miscellaneous tab to see printed paper medication records and downtime forms.
[2024-01-08 07:30] VITALS: BP 165/93
[2024-01-08] MEDS: CYMBALTA DELAYED RELEASE 20 MG PO (07:51)
[2024-01-08] MEDS: VITAMIN D3 (cholecalciferol) 125 MCG PO (07:51)
[2024-01-08] MEDS: CARAFATE 1 GRAM PO ×4 (07:51→21:48)
[2024-01-08] MEDS: PROTONIX 40 MG PO ×2 (07:51→20:21)
[2024-01-08] MEDS: FOLVITE 1 MG PO (07:51)
[2024-01-08] MEDS: DIFICID 200 MG PO ×2 (07:51→20:21)
[2024-01-08] MEDS: VITAMIN B1 100 MG PO (07:51)
[2024-01-08] MEDS: ATIVAN 0.5 MG PO ×2 (07:51→20:21)
[2024-01-08 08:39] LABS: Hematocrit 32.2 % (37.0-47.0); Hemoglobin 10.9 g/dL (12.0-16.0); Mean Corp Hgb Conc. 33.9 g/dL (33.0-37.0); Mean Corpuscular Hgb 32.5 pg (27.0-31.0); Mean Corpuscular Volume 96.1 fL (81.0-99.0); Mean Platelet Volume 9.7 fL (7.4-10.4); Platelet Count 305 10^3/uL (130-400); Red Blood Cell Count 3.35 10^6/uL (4.20-5.40); White Blood Cell Count 7.5 10^3/uL (4.8-10.8)
[2024-01-08] MEDS: TYLENOL 650 MG PO (08:46)
[2024-01-08] MEDS: QUESTRAN LIGHT/PREVALITE 4 GRAMS PO (08:46)
--- NOTE | 2024-01-08 09:37 | CM ---
Addendum entered by Melinda Mckeon 01/08/24 09:53:
Dificid still at patient's pharmacy, [facility].
Original Note:
healthcare account manager reviewed patient's chart and spoke with patient regarding medication at discharge, patient's pharmacy special ordered medication however per pharmacist patient never picked up medication.
Plan; Home with [facility] when stable.
--- NOTE | 2024-01-08 10:29 | W.PN.HOSP.TC ---
Addendum entered and electronically signed by Greg Cardona MD 01/08/24 14:38:
Patient seen and examined
Discussed with resident
Impression/plan:
Presentation with persistent upper abdominal discomfort
Ongoing loose stools.
Recent pancolitis.
Concern for C. difficile (C. difficile toxin negative antigen positive)
Afebrile.
Abdominal examination benign.
Liver function test within normal limits unless very mild and isolated bilirubin elevation
Continue Dificid
Agree with probiotic
Continue PPI
Diet advanced to low residue.
Original Note:
Today's Communication/Plan
-
Continue Dificid; monitor WBC.
Assessment / Plan
Assessment / Plan
Impression: This is a 68yo female patient with PMH for GERD, hiatal hernia, hypertension, past alcohol abuse, colitis, LA grade C/D esophagitis, recent admission with suspected C. difficile infection, prior GI bleed secondary to peptic ulcer, IBS,
suspected gout, anxiety, who presented to the emergency room with complaints of chest and abdominal pain and loose stools.
Presentation with recurrent nausea and vomiting and diffuse abdominal pain
Recurrent nonbloody diarrhea
Recently C. difficile antigen positive toxin negative
Recent hospitalization with pancolitis
History of alcohol use disorder.
GERD.
IBS
Essential hypertension
Hiatal hernia
Chronic normocytic anemia
Anxiety/depression
Gout
Plan:
#Abdominal/lower chest pain loose stools suspect secondary to GERD/gastritis/gastroenteritis.
-ECG with no ischemia
-Negative cardiac markers
-Elevated dimer prompted CT PE
-CT PE abdomen and pelvis negative for pulmonary embolism, mild interstitial edema, small hiatal hernia, mild mural thickening of -the esophagus diffusely, hepatic fatty infiltration, 1.2 cm increased attenuation of the lower pole of the right
kidney. Diverticulosis.
-Continue Pantoprazole PO BID
-Advance liquid diet to low residue
-GI consulted: possible post inf IBS, considering xifaxan
-Stool cultures: antigen positive, toxin negative on 01/06
-Continue Dificid
-fecal pancreatic elastase and calprotectin results pending
-Hold Questran as per GI
#Chronic anemia
-Hemoglobin stable
-HB today 10.9
#History of alcohol use disorder
-Continue folic acid and thiamine
-Continue as needed Ativan
-No alcohol use in 2 weeks
#Recent suspected gout right ankle
#Vitamin D deficiency
#History of cholecystectomy with chronically dilated CBD
#Anxiety/depression
-Continue duloxetine
Full code
DVT prophylaxis�SCDs
Anticipated Discharge: 24 - 48 hours
Subjective/Interval History
-
Date of Service: January 08, 2024
Patient had 2 loose BM today. Denies any feeling feverish or chills.
Objective Data
-
Labs:
Laboratory Results
01/08/24
08:06
WBC 7.5
Hgb 10.9 L
Hct 32.2 L
Plt Count 305
Vital Signs:
Vital Signs
Temp Pulse Resp BP Pulse Ox
98.3 F 76 18 165/93 97
01/08/24 07:30 01/08/24 07:30 01/08/24 07:30 01/08/24 07:30 01/08/24 07:30
I&O
01/07/24 01/08/24 01/09/24
06:59 06:59 06:59
Intake Total 1360 / 1360
Balance 1360 / 1360
Review of Systems
-
History Source: Patient
All other systems: Reviewed and negative
Physical Exam
-
General: Well Developed and No Apparent Distress
HEENT: Normocephalic, Atraumatic and Moist Mucous Membranes
Respiratory: Clear to Auscultation
Cardiac: Regular Rhythm and S1/S2; Negative Murmur, Rub or Gallop
GI: Soft, Nontender, Nondistended and Normal Bowel Sounds; Negative Organomegaly
Rectal: Deferred by Provider
Musculoskeletal: No Clubbing, No Cyanosis and No Edema
Skin: Negative Rash
Neuro: Awake, Alert, Oriented and Nonfocal/Grossly Intact
--- NOTE | 2024-01-08 11:15 | W.PN.GI.CBS2 ---
Today's Communication / Plan
-
diarrhea biggest complaint
stool neg so far with c-diff ag +/tox neg
cont dificid
hold Questran as being given with Dificid
cont low residue diet will add low lactose to diet
fecal maicol pending add celiac panel, TSH, and fecal elastase as patient state diarrhea has been ongoing
if diarrhea persists and work up neg consider eventual flex vs colonoscopy with bx to excluding underlying IBD(prior CT with pancolitis), microscopic colitis ( pt has been on Duloxetine and PPI which can trigger microscopic colitis )
consider Xifaxan trial
cont PPI and carafate
consider OP GE scan
-ETOH abstinence
Assessment / Plan
-
The patient is a 68-year-old female with a past medical history significant for GERD, hiatal hernia, hypertension, prior daily alcohol use, colitis, LA grade C/D esophagitis, recent admission with suspected C. difficile infection, prior GI bleed
secondary to peptic ulcer, IBS, suspected gout, anxiety, who presented to the emergency room with complaints of chest and abdominal pain. Noted with prior admission at the beginning of this month with similar symptoms treated for possible C.
difficile infection with Dificid and oral vancomycin with improvement in symptoms. He was also started on Questran. Celiac negative historically. In regards to her upper GI symptoms she was placed on PPI twice daily and Carafate, but she was not
compliant with these medications at home therefore returned with recurrent symptoms. Prior CT imaging did show pancolitis and a distended stomach. CTA imaging on this admission showing no overt find to explain her current symptoms but did show
likely esophagitis. She is improving clinically and requesting liquids.
Problem list:
-diarrhea
-Recurrent nausea/vomiting
-Recurrent nonbloody diarrhea, prior C. difficile showing antigen positive but toxin negative
-Recent admission with pancolitis
-History of alcohol abuse
-GERD
-CT imaging showing a 1.2 cm renal lesion, fatty liver, small hiatal hernia, mild interstitial edema, diverticulosis
-Mildly elevated LFTs
Other pertinent medical history:
-Hypertension
-Hiatal hernia
-Anxiety/depression
-IBS
-Suspected gout
Recommendations:
nausea and vomiting resolved secondary to gastroenteritis/viral etiology versus gastroparesis versus severe reflux versus postinfectious IBS versus other.
patient complaints of ongoing diarrhea with periods of incontinence and need to wear pad for several week
recent treatment for C-diff ag + tox neg with dificid
repeat stool cx pending -- c-diff remains Ag + tox neg, giardia/crypto neg, no WBC's seen
cont low residue diet will add low lactose to diet
fecal maicol pending add celiac panel, TSH, and fecal elastase as patient state diarrhea has been ongoing
if diarrhea persists and work up neg consider eventual flex vs colonoscopy with bx to excluding underlying IBD (prior CT with pancolitis ), microscopic colitis ( pt has been on Duloxetine and PPI which can trigger microscopic colitis )
consider Xifaxan trial
will stop Questran as being given same time as Dificid
-Agree to continue PPI twice daily and Carafate ACHS with hx esophagitis
-To consider gastric emptying study given her recurrent symptoms and significant esophagitis as she admits to early satiety and bloating symptoms
-If symptoms do not improve ultimately, to consider repeat EGD given her history as above
-ETOH abstinence
Subjective
Subjective
Date of Service: January 08, 2024
complaints of continued diarrhea with watery stools recorded on low residue diet
Objective
Data Reviewed
Laboratory Data:
Laboratory Results
01/08/24 08:06
01/07/24 07:54
Laboratory Results
PT 12.3 Sec (11.4-14.6) 01/06/24 11:21
PT Cancelled 01/06/24 11:21
INR 0.93 01/06/24 11:21
INR Cancelled 01/06/24 11:21
Total Bilirubin 1.5 mg/dl (0.2-1.3) H 01/07/24 07:54
AST 35 U/L (14-36) 01/07/24 07:54
ALT 23 U/L (0-35) 01/07/24 07:54
Alkaline Phosphatase 131 U/L (38-126) H 01/07/24 07:54
Vital Signs and I&O:
Vital Signs
Temp Pulse Resp BP Pulse Ox
98.3 F 76 18 165/93 97
01/08/24 07:30 01/08/24 07:30 01/08/24 07:30 01/08/24 07:30 01/08/24 07:30
I&O
01/07/24 01/08/24 01/09/24
06:59 06:59 06:59
Intake Total 1360 / 1360
Balance 1360 / 1360
Physical Exam
Physical Exam
HEENT: Anicteric and Moist mucous membranes
Cardiology: Normal Sinus Rhythm
Pulmonary: Clear
GI: Soft, Non Distended and Non Tender
Rectal: Other (yellow tinged loose stool no impaction )
Neuro: Non Focal
--- NOTE | 2024-01-08 11:16 | W.PN.GI.CBS2 ---
Today's Communication / Plan
-
Cont POs as tolerated
Cont dificid to treat C diff Ag positive (though toxin negative)
Add probiotics
Consider Xifaxan for post infxn IBS
Cont protonix BID
Hopefully nausea improves with further acid suppresion given her hx esophagitis
Consider GES
Assessment / Plan
-
The patient is a 68-year-old female with a past medical history significant for GERD, hiatal hernia, hypertension, prior daily alcohol use, colitis, LA grade C/D esophagitis, recent admission with suspected C. difficile infection, prior GI bleed
secondary to peptic ulcer, IBS, suspected gout, anxiety, who presented to the emergency room with complaints of chest and abdominal pain. Noted with prior admission at the beginning of this month with similar symptoms treated for possible C.
difficile infection with Dificid and oral vancomycin with improvement in symptoms. He was also started on Questran. Celiac negative historically. In regards to her upper GI symptoms she was placed on PPI twice daily and Carafate, but she was not
compliant with these medications at home therefore returned with recurrent symptoms. Prior CT imaging did show pancolitis and a distended stomach. CTA imaging on this admission showing no overt find to explain her current symptoms but did show
likely esophagitis. She is improving clinically and requesting liquids.
Problem list:
-Recurrent nausea/vomiting
-Recurrent nonbloody diarrhea, prior C. difficile showing antigen positive but toxin negative
-Recent admission with pancolitis
-History of alcohol abuse
-GERD
-CT imaging showing a 1.2 cm renal lesion, fatty liver, small hiatal hernia, mild interstitial edema, diverticulosis
-Mildly elevated LFTs
Other pertinent medical history:
-Hypertension
-Hiatal hernia
-Anxiety/depression
-IBS
-Suspected gout
Subjective
Subjective
Date of Service: January 08, 2024
c/o nausea. Able to tolerate dinner and breakfast, but still nausea this am. Passing diarrhea still. Some RUQ pain
Objective
Data Reviewed
Laboratory Data:
Laboratory Results
01/08/24 08:06
01/07/24 07:54
Laboratory Results
PT 12.3 Sec (11.4-14.6) 01/06/24 11:21
PT Cancelled 01/06/24 11:21
INR 0.93 01/06/24 11:21
INR Cancelled 01/06/24 11:21
Total Bilirubin 1.5 mg/dl (0.2-1.3) H 01/07/24 07:54
AST 35 U/L (14-36) 01/07/24 07:54
ALT 23 U/L (0-35) 01/07/24 07:54
Alkaline Phosphatase 131 U/L (38-126) H 01/07/24 07:54
Vital Signs and I&O:
Vital Signs
Temp Pulse Resp BP Pulse Ox
98.3 F 76 18 165/93 97
01/08/24 07:30 01/08/24 07:30 01/08/24 07:30 01/08/24 07:30 01/08/24 07:30
I&O
01/07/24 01/08/24 01/09/24
06:59 06:59 06:59
Intake Total 1360 / 1360
Balance 1360 / 1360
Physical Exam
Physical Exam
GI: Soft, Non Distended and Tender
[2024-01-08] MEDS: FLORASTOR 250 MG PO ×2 (11:52→20:21)
[2024-01-08 13:07] LABS: TSH 3.97 uIU/ml (0.47-4.68)
[2024-01-08 15:30] VITALS: BP 120/83
[2024-01-08 15:54] LABS: tTG IgA Antibody 6.4 EU/ml (0-19); tTG IgG Antibody 6.2 EU/ml (0-19)
[2024-01-08 23:33] VITALS: BP 119/69
[2024-01-09 01:03] LABS: IgA 208 mg/dl (70-400)
[2024-01-09 07:00] VITALS: BP 156/94
[2024-01-09 08:14] LABS: % Basophils 0.7 % (0-2); % Eosinophils 4.9 % (0-6); % Lymphocytes 24.6 % (20.5-51.1); % Monocytes 9.4 % (1.7-9.3); % Neutrophils 59.4 % (42.2-75.2); Absolute Basophils 0.1 10^3/uL (0-0.2); Absolute Eosinophils 0.3 10^3/uL (0-0.7); Absolute Immature Granulocytes 0.1 10^3/uL (0-0.05); Absolute Lymphocytes 1.7 10^3/uL (1.2-3.4); Absolute Monocytes 0.7 10^3/uL (0.1-0.6); Absolute Neutrophils 4.1 10^3/uL (1.4-6.5); Hematocrit 31.6 % (37.0-47.0); Hemoglobin 10.9 g/dL (12.0-16.0); Mean Corp Hgb Conc. 34.5 g/dL (33.0-37.0); Mean Corpuscular Hgb 33.1 pg (27.0-31.0); Mean Platelet Volume 9.7 fL (7.4-10.4); Nucleated Red Blood Cells % 0 %; Platelet Count 261 10^3/uL (130-400); Red Blood Cell Count 3.29 10^6/uL (4.20-5.40); Red Cell Dist. Width 14.6 % (11.5-14.5); White Blood Cell Count 6.9 10^3/uL (4.8-10.8)
[2024-01-09 08:32] LABS: ALT (SGPT) 20 U/L (0-35); AST (SGOT) 30 U/L (14-36); Albumin 3.7 g/dl (3.5-5.0); Alkaline Phosphatase 90 U/L (38-126); Blood Urea Nitrogen 9 mg/dl (7-17); Calcium 8.5 mg/dl (8.4-10.2); Carbon Dioxide 26 mmol/L (22-30); Chloride 103 mmol/L (98-107); Estimated Creatinine Clearance 59 ml/min; Glucose 108 mg/dl (70-99); Potassium 3.3 mmol/L (3.5-5.1); Sodium 136 mmol/L (135-145); Total Bilirubin 0.6 mg/dl (0.2-1.3); Total Protein 6.2 g/dl (6.3-8.2); eGFR > 60.00
[2024-01-09] MEDS: VITAMIN B1 100 MG PO (08:53)
[2024-01-09] MEDS: FLORASTOR 250 MG PO ×2 (08:53→19:43)
[2024-01-09] MEDS: CARAFATE 1 GRAM PO ×4 (08:54→21:03)
[2024-01-09] MEDS: CYMBALTA DELAYED RELEASE 20 MG PO (08:54)
[2024-01-09] MEDS: DIFICID 200 MG PO ×2 (08:54→19:43)
[2024-01-09] MEDS: VITAMIN D3 (cholecalciferol) 125 MCG PO (08:54)
[2024-01-09] MEDS: ATIVAN 0.5 MG PO ×2 (08:54→19:43)
[2024-01-09] MEDS: FOLVITE 1 MG PO (08:54)
[2024-01-09] MEDS: PROTONIX 40 MG PO ×2 (08:54→19:43)
--- NOTE | 2024-01-09 10:24 | W.PN.HOSP.TC ---
Today's Communication/Plan
-
Continue Dificid and protonix; repleted potassium.
Assessment / Plan
Assessment / Plan
Impression: This is a 68yo female patient with PMH for GERD, hiatal hernia, hypertension, past alcohol abuse, colitis, LA grade C/D esophagitis, recent admission with suspected C. difficile infection, prior GI bleed secondary to peptic ulcer, IBS,
suspected gout, anxiety, who presented to the emergency room with complaints of chest and abdominal pain and loose stools.
Presentation with recurrent nausea and vomiting and diffuse abdominal pain
Recurrent nonbloody diarrhea
Recently C. difficile antigen positive toxin negative
Recent hospitalization with pancolitis
History of alcohol use disorder.
GERD.
IBS
Essential hypertension
Hiatal hernia
Chronic normocytic anemia
Anxiety/depression
Gout
Plan:
#Abdominal/lower chest pain loose stools suspect secondary to GERD/gastritis/gastroenteritis.
-ECG with no ischemia
-Negative cardiac markers
-Elevated dimer prompted CT PE
-CT PE abdomen and pelvis negative for pulmonary embolism, mild interstitial edema, small hiatal hernia, mild mural thickening of -the esophagus diffusely, hepatic fatty infiltration, 1.2 cm increased attenuation of the lower pole of the right
kidney. Diverticulosis.
-Advanced liquid diet to low residue
-GI consulted: possible post inf IBS, considering xifaxan
-Stool cultures: antigen positive, toxin negative on 01/06
-Continue Dificid
-fecal pancreatic elastase and calprotectin results pending
-Restarted Questran as per GI
-Improved frequency of bowel movements
-potassium repleted, was 3.3
-Continue Pantoprazole PO BID
#Chronic anemia
-Hemoglobin stable
-HB today 10.9
#History of alcohol use disorder
-Continue folic acid and thiamine
-Continue as needed Ativan
-No alcohol use in 2 weeks
#Recent suspected gout right ankle
#Vitamin D deficiency
#History of cholecystectomy with chronically dilated CBD
#Anxiety/depression
-Continue duloxetine
Full code
DVT prophylaxis�SCDs
Anticipated Discharge: 24 - 48 hours
Subjective/Interval History
-
Date of Service: January 09, 2024
Patient states that she has only had 1 bowel movement since midnight and described it as 'mushy'.
Objective Data
-
Labs:
Laboratory Results
01/09/24
07:19
WBC 6.9
Hgb 10.9 L
Hct 31.6 L
Plt Count 261
Sodium 136
Potassium 3.3 L
Chloride 103
Carbon Dioxide 26
BUN 9
Creatinine 0.8
Glucose 108 H
Calcium 8.5
Total Bilirubin 0.6
AST 30
ALT 20
Alkaline Phosphatase 90
Vital Signs:
Vital Signs
Temp Pulse Resp BP Pulse Ox
99.3 F 82 16 156/94 97
01/09/24 07:00 01/09/24 07:00 01/09/24 07:00 01/09/24 07:00 01/09/24 07:00
I&O
01/08/24 01/09/24 01/10/24
06:59 06:59 06:59
Intake Total 1360 / 1360 1260 / 1260
Balance 1360 / 1360 1260 / 1260
Review of Systems
-
History Source: Patient
All other systems: Reviewed and negative
Physical Exam
-
General: No Apparent Distress
HEENT: Normocephalic, Atraumatic and Moist Mucous Membranes
Respiratory: Clear to Auscultation
Cardiac: Regular Rhythm and S1/S2; Negative Murmur, Rub or Gallop
GI: Soft, Nontender, Nondistended and Normal Bowel Sounds; Negative Organomegaly
Rectal: Deferred by Provider
Musculoskeletal: No Clubbing, No Cyanosis and No Edema
Skin: Negative Rash
Neuro: Awake, Alert, Oriented and Nonfocal/Grossly Intact
--- NOTE | 2024-01-09 11:05 | W.PN.GI.CBS2 ---
Addendum entered and electronically signed by Ramin Warner MD 01/09/24 12:14:
I saw and examined the patient.
The SMALL ELECT[employer]IC ENGINE TECHNICIAN or PA's note was reviewed and I agree with the note.
Comment: Still had accidents overnight and c/o diarrhea. Reports sx started after cholecystectomy. Also c/o nausea in am, better with food
REC:
Continue protonix and carafate for hx of severe reflux esophagitis on EGD x 3 last year. She admittedly was not taking PPI after d/c
antiemetics prn
t/c GES
Eventual repeat EGD to check healing
Try adding back questran which has helped in the past
Continue dificid for C diff Ag positive, toxin negative but consider stopping
Continue probiotics. T/c adding xifaxan for post-infectious IBS
Should get eventual colonoscopy. Prior CT 12/22/23 showed mild/moderate pancolitis, but CT this admission only shows diverticulosis. Can be done IP vs OP
Original Note:
Today's Communication / Plan
-
nausea and vomiting resolved secondary to gastroenteritis/viral etiology versus gastroparesis versus severe reflux versus postinfectious IBS versus other.
some improved diarrhea today
recent treatment for C-diff ag + tox neg with dificid continued now
other stools neg
cont low residue/low lactose diet
fecal maicol, elastase pending, TSH normal, celiac so far neg
hold Imodium
consider OP colonoscopy with bx to excluding underlying IBD (prior CT with pancolitis ), microscopic colitis ( pt has been on Duloxetine and PPI which can trigger microscopic colitis )
consider Xifaxan trial
will restart Questran with better timing around meds as report diarrhea starting after bang
- continue PPI twice daily and Carafate ACHS with hx esophagitis
-To consider gastric emptying study given her recurrent symptoms and significant esophagitis as she admits to early satiety and bloating symptoms
-If symptoms do not improve ultimately, to consider repeat EGD given her history as above
-ETOH abstinence
-- will review with case management need for [facility] to see patient on discharge as still confused with medications
Assessment / Plan
-
The patient is a 68-year-old female with a past medical history significant for GERD, hiatal hernia, hypertension, prior daily alcohol use, colitis, LA grade C/D esophagitis, recent admission with suspected C. difficile infection, prior GI bleed
secondary to peptic ulcer, IBS, suspected gout, anxiety, who presented to the emergency room with complaints of chest and abdominal pain. Noted with prior admission at the beginning of this month with similar symptoms treated for possible C.
difficile infection with Dificid and oral vancomycin with improvement in symptoms. He was also started on Questran. Celiac negative historically. In regards to her upper GI symptoms she was placed on PPI twice daily and Carafate, but she was not
compliant with these medications at home therefore returned with recurrent symptoms. Prior CT imaging did show pancolitis and a distended stomach. CTA imaging on this admission showing no overt find to explain her current symptoms but did show
likely esophagitis. She is improving clinically and requesting liquids.
Problem list:
-diarrhea
-Recurrent nausea/vomiting
-Recurrent nonbloody diarrhea, prior C. difficile showing antigen positive but toxin negative
-Recent admission with pancolitis
-History of alcohol abuse
-GERD
-CT imaging showing a 1.2 cm renal lesion, fatty liver, small hiatal hernia, mild interstitial edema, diverticulosis
-Mildly elevated LFTs
Other pertinent medical history:
-Hypertension
-Hiatal hernia
-Anxiety/depression
-IBS
-Suspected gout
Recommendations:
nausea and vomiting resolved secondary to gastroenteritis/viral etiology versus gastroparesis versus severe reflux versus postinfectious IBS versus other.
some improved diarrhea today
recent treatment for C-diff ag + tox neg with dificid continued now
other stools neg
cont low residue/low lactose diet
fecal maicol, elastase pending, TSH normal, celiac so far neg
hold Imodium
consider OP colonoscopy with bx to excluding underlying IBD (prior CT with pancolitis ), microscopic colitis ( pt has been on Duloxetine and PPI which can trigger microscopic colitis )
consider Xifaxan trial
will restart Questran with better timing around meds as report diarrhea starting after bang
- continue PPI twice daily and Carafate ACHS with hx esophagitis
-To consider gastric emptying study given her recurrent symptoms and significant esophagitis as she admits to early satiety and bloating symptoms
-If symptoms do not improve ultimately, to consider repeat EGD given her history as above
-ETOH abstinence
-- will review with case management need for [facility] to see patient on discharge as still confused with medications
Subjective
Subjective
Date of Service: January 09, 2024
low residue/low lactose diet, brown watery stool some improved symptoms today, poor historian but now recall diarrhea may have started after bang -- she admits to poor compliance with medication but does take increased Imodium at home for diarrhea
Objective
Data Reviewed
Laboratory Data:
Laboratory Results
01/09/24 07:19
01/09/24 07:19
Laboratory Results
PT 12.3 Sec (11.4-14.6) 01/06/24 11:21
PT Cancelled 01/06/24 11:21
INR 0.93 01/06/24 11:21
INR Cancelled 01/06/24 11:21
Total Bilirubin 0.6 mg/dl (0.2-1.3) 01/09/24 07:19
AST 30 U/L (14-36) 01/09/24 07:19
ALT 20 U/L (0-35) 01/09/24 07:19
Alkaline Phosphatase 90 U/L (38-126) 01/09/24 07:19
Vital Signs and I&O:
Vital Signs
Temp Pulse Resp BP Pulse Ox
99.3 F 82 16 156/94 97
01/09/24 07:00 01/09/24 07:00 01/09/24 07:00 01/09/24 07:00 01/09/24 07:00
I&O
01/08/24 01/09/24 01/10/24
06:59 06:59 06:59
Intake Total 1360 / 1360 1260 / 1260
Balance 1360 / 1360 1260 / 1260
Physical Exam
Physical Exam
HEENT: Anicteric and Moist mucous membranes
Cardiology: Normal Sinus Rhythm
Pulmonary: Clear
GI: Soft, Distended and Tender (mild diffuse)
Extremities: No Edema
Neuro: Non Focal
--- NOTE | 2024-01-09 12:19 | VNURNOTE ---
Home Health Liaison spoke with patient at 1200 to discuss [facility] nurse visits, schedule and homebound status. Patient is agreeable and understands that visits at home will be 2-3 x per week to assess and teach medical management. Patient is requesting
assistance with help filling pillbox.
Patient is aware that [facility] will contact her for start of care in 1-2 days after discharge from and is agreeable to answer her phone in order for scheduling of visits.
On previous admission, patient had been set up w/[facility] but did not answer or return multiple calls by [facility] and was [facility] referral completed in [facility].
[2024-01-09] MEDS: QUESTRAN LIGHT/PREVALITE 4 GRAMS PO (13:22)
--- NOTE | 2024-01-09 14:56 | W.PN.UPDATE ---
Update Note
Progress Note Update
Patient seen and examined
Discussed with resident
Presentation with recurrent nausea, epigastric and later diffuse abdominal pain and discomfort, reported nausea with emesis at home
Recurrent diarrhea
Recently C. difficile antigen positive toxin negative
Recent hospitalization with pancolitis
History of alcohol use disorder.
GERD.
IBS
Essential hypertension
Hiatal hernia
Chronic normocytic anemia
Anxiety/depression
Gout
Suspect epigastric pain due to gastritis, patient was not compliant with PPI at home
Diarrhea possibly secondary to C. difficile. Recent hospitalization with pancolitis. Patient reports not taking antibiotics upon discharge.
Initiated on PPI Dificid
Overall improved with decreased abdominal symptoms as well as intensity of bowel movements.
Diet has been advanced to a low residue/low fat.
Monitor over the next 24 hours.
[2024-01-09 15:00] VITALS: BP 125/85
[2024-01-09] MEDS: KCL 40 MEQ PO (18:06)
[2024-01-09 23:59] VITALS: BP 146/84
[2024-01-10 07:00] VITALS: BP 155/81
[2024-01-10] MEDS: PROTONIX 40 MG PO (09:50)
[2024-01-10] MEDS: CYMBALTA DELAYED RELEASE 20 MG PO (09:50)
[2024-01-10] MEDS: VITAMIN B1 100 MG PO (09:50)
[2024-01-10] MEDS: QUESTRAN LIGHT/PREVALITE 4 GRAMS PO (09:51)
[2024-01-10] MEDS: CARAFATE 1 GRAM PO ×2 (09:51→12:56)
[2024-01-10] MEDS: DIFICID 200 MG PO (09:51)
[2024-01-10] MEDS: FOLVITE 1 MG PO (09:51)
[2024-01-10] MEDS: FLORASTOR 250 MG PO (09:51)
[2024-01-10] MEDS: VITAMIN D3 (cholecalciferol) 125 MCG PO (09:51)
[2024-01-10] MEDS: ATIVAN 0.5 MG PO (09:51)
[2024-01-10 09:59] LABS: % Basophils 0.9 % (0-2); % Eosinophils 2.9 % (0-6); % Immature Granulocytes 0.5 % (0-0.5); % Lymphocytes 19.6 % (20.5-51.1); % Monocytes 7.1 % (1.7-9.3); Absolute Basophils 0.1 10^3/uL (0-0.2); Absolute Eosinophils 0.3 10^3/uL (0-0.7); Absolute Lymphocytes 1.7 10^3/uL (1.2-3.4); Absolute Monocytes 0.6 10^3/uL (0.1-0.6); Absolute Neutrophils 6.1 10^3/uL (1.4-6.5); Hematocrit 32.8 % (37.0-47.0); Hemoglobin 11.2 g/dL (12.0-16.0); Mean Corp Hgb Conc. 34.1 g/dL (33.0-37.0); Mean Corpuscular Hgb 33.2 pg (27.0-31.0); Mean Corpuscular Volume 97.3 fL (81.0-99.0); Mean Platelet Volume 9.7 fL (7.4-10.4); Nucleated Red Blood Cells % 0 %; Platelet Count 258 10^3/uL (130-400); Red Blood Cell Count 3.37 10^6/uL (4.20-5.40); Red Cell Dist. Width 14.7 % (11.5-14.5); White Blood Cell Count 8.8 10^3/uL (4.8-10.8)
--- NOTE | 2024-01-10 10:29 | W.DS.TRANS ---
DC Summary - Cold Patcher
-
Discharge Instructions:
Instructions:
Stand-Alone Forms:
Changes to Home Medications: Yes
Discharge Medications:
DC Medications w/original date entered in [employer]
esomeprazole magnesium 20 mg capsule,delayed release (Nexium) 20 mg PO TID Gastrointestinal Issue 12/22/23
lorazepam 0.5 mg tablet (Ativan) 0.5 mg PO BID anxiety 12/22/23
sumatriptan succinate 50 mg tablet (Imitrex) 0 mg PO .COMPLEX migraine 12/22/23
cholecalciferol (vitamin D3) 125 mcg (5,000 unit) tablet 125 mcg PO DAILY #30 tabs 12/26/23
duloxetine 20 mg capsule,delayed release 20 mg PO DAILY #30 caps 12/26/23
folic acid 1 mg tablet 1 mg PO DAILY #30 tabs 12/26/23
sucralfate 1 gram tablet 1 g PO ACHS #120 tabs 12/26/23
thiamine HCl (vitamin B1) 100 mg tablet 100 mg PO DAILY #30 tabs 12/26/23
cholestyramine-aspartame 4 gram oral powder for susp in a packet (Cholestyramine Light) 1 ea PO DAILY #60 ea 12/30/23
fidaxomicin 200 mg tablet (Dificid) 200 mg PO BID #20 tabs 12/30/23
Home Medication Changes
Dificid 200mg PO Daily stop on 01/15/24
Florastor 250 PO BID
Pantoprozole 40mg PO BID
Pending Results: Yes
Additional Pending Results:
Stool Calprotectin and pancreatic elastase.
--- NOTE | 2024-01-10 10:30 | W.DCSUMMARY ---
Documented by User: Farnaz Mitchell, Resident, 01/10/24 14:26
Discharge Summary
Discharge Data
Date of Admission: 01/08/24
Date of Discharge: 01/10/24
-
Pending Results: Yes
Additional Pending Results:
stool calprotectin and pancreatic elastase
Hospital Course
This 68-year-old female with past medical history of C. difficile antigen positivity, GERD/esophagitis, peptic ulcer with prior bleeding, IBS, alcohol use disorder, suspected gout, anxiety, who presented to the ED for for chest/abdominal discomfort
since last night along with vomiting and nausea. She was recently discharged from the hospital for C. difficile but was not compliant with her medications. Troponins were tested and were negative but there was elevated D-dimer which prompted CT
abdomen/pelvis with showed Negative for pulmonary embolism, mild interstitial edema,small hiatal hernia and diverticulosis. IV fluids and protonix were started, stool cultures sent and patient was kept on NPO. GI consulted. Continued other at home
medications regiment. Stool cultures showed c.diff antigen positive but toxin negative. Protonix was switched to oral twice daily and questran continued. She was advanced from liquid diet to low residue. Her liver function test were within normal
limits except for very mild and isolated bilirubin elevation. Patient clinically improved with decreasing bowel movement frequency.
Discharge patient to home with outpatient follow up with her PCP and gastroenterology. She should finished her course of Dificid and be adherent to her PPI regimen as well. .
Discharge Plan
-
Patient Disposition: Home (Routine Discharge)
Discharge Diagnosis/Procedures: Diarrhea secondary to C.Difficile/esophagitis
Diet: Low Fat
Activity: As tolerated
Referrals:
Ishaan Ames DO [Family Provider] -
Prescriptions:
New
pantoprazole 40 mg Tablet,Delayed Release (Dr/Ec)
40 mg PO BID 30 Days Qty: 60 0RF
Saccharomyces boulardii 250 mg Capsule
250 mg PO BID 30 Days Qty: 60 0RF
Dificid 200 mg Tablet
200 mg PO BID 5 Days Qty: 10 0RF
Continued
esomeprazole magnesium [Nexium] 20 mg Capsule,Delayed Release(Dr/Ec)
20 mg PO TID
lorazepam [Ativan] 0.5 mg tablet
0.5 mg PO BID
sumatriptan succinate [Imitrex] 50 mg Tablet
0 mg PO .COMPLEX
Rx Instructions:
take 1 tab at onset of headache; if no relief may repeat 1 tab after at least 2 hrs; max = 4 tabs/24 hr
sucralfate 1 gram Tablet
1 g PO ACHS Qty: 120 0RF
Rx Instructions:
not a new medication ;represcribing old medication
duloxetine 20 mg Capsule,Delayed Release(Dr/Ec)
20 mg PO DAILY Qty: 30 0RF
Rx Instructions:
Not new ; take it as prescribed prior
folic acid 1 mg Tablet
1 mg PO DAILY Qty: 30 0RF
Rx Instructions:
use for a month
thiamine HCl (vitamin B1) 100 mg Tablet
100 mg PO DAILY Qty: 30 0RF
Rx Instructions:
use for a month
cholecalciferol (vitamin D3) 125 mcg (5,000 unit) Tablet
125 mcg PO DAILY Qty: 30 0RF
Rx Instructions:
not a new medication
cholestyramine-aspartame [Cholestyramine Light] 4 gram Powder In Packet
1 ea PO DAILY Qty: 60 0RF
Discontinued
Dificid 200 mg Tablet
200 mg PO BID Qty: 20 0RF
Discharge Orders:
Discharge Patient (As Directed); Ordered 01/10/24
Ordered By: Farnaz Mitchell
Discharge Date and Time
Print Language: LATVIAN

Documented by User: Greg Cardona MD 01/10/24 14:59
Discharge Summary
Discharge Data
Date of Admission: 01/08/24
Date of Discharge: 01/10/24
Discharge Plan
-
Patient Disposition: Home (Routine Discharge)
Discharge Diagnosis/Procedures: Diarrhea secondary to C.Difficile/esophagitis
Diet: Low Fat
Activity: As tolerated
Referrals:
Ishaan Ames DO [Family Provider] -
Prescriptions:
New
pantoprazole 40 mg Tablet,Delayed Release (Dr/Ec)
40 mg PO BID 30 Days Qty: 60 0RF
Saccharomyces boulardii 250 mg Capsule
250 mg PO BID 30 Days Qty: 60 0RF
Dificid 200 mg Tablet
200 mg PO BID 5 Days Qty: 10 0RF
Continued
esomeprazole magnesium [Nexium] 20 mg Capsule,Delayed Release(Dr/Ec)
20 mg PO TID
lorazepam [Ativan] 0.5 mg tablet
0.5 mg PO BID
sumatriptan succinate [Imitrex] 50 mg Tablet
0 mg PO .COMPLEX
Rx Instructions:
take 1 tab at onset of headache; if no relief may repeat 1 tab after at least 2 hrs; max = 4 tabs/24 hr
sucralfate 1 gram Tablet
1 g PO ACHS Qty: 120 0RF
Rx Instructions:
not a new medication ;represcribing old medication
duloxetine 20 mg Capsule,Delayed Release(Dr/Ec)
20 mg PO DAILY Qty: 30 0RF
Rx Instructions:
Not new ; take it as prescribed prior
folic acid 1 mg Tablet
1 mg PO DAILY Qty: 30 0RF
Rx Instructions:
use for a month
thiamine HCl (vitamin B1) 100 mg Tablet
100 mg PO DAILY Qty: 30 0RF
Rx Instructions:
use for a month
cholecalciferol (vitamin D3) 125 mcg (5,000 unit) Tablet
125 mcg PO DAILY Qty: 30 0RF
Rx Instructions:
not a new medication
cholestyramine-aspartame [Cholestyramine Light] 4 gram Powder In Packet
1 ea PO DAILY Qty: 60 0RF
Discontinued
Dificid 200 mg Tablet
200 mg PO BID Qty: 20 0RF
Discharge Orders:
Discharge Patient (As Directed); Ordered 01/10/24
Ordered By: Farnaz Mitchell
Discharge Date and Time
Print Language: LATVIAN
--- NOTE | 2024-01-10 10:52 | W.PN.HOSP.TC ---
Addendum entered and electronically signed by Greg Cardona MD 01/20/24 16:52:
Hypokalemia/hyponatremia improved with advanced oral intake.
Addendum entered and electronically signed by Greg Cardona MD 01/10/24 15:01:
Patient seen and examined
Discussed with resident
Discussed with gastroenterology
Impression/plan:
Admitted with abdominal discomfort/epigastric pain/loose stools
Prior history of IBS, gastritis
Recent hospitalization with pancolitis concern for C. difficile given C. difficile toxin negative/antigen positive.
Discharged home with improved symptoms, although was not compliant with Dificid.
Currently improved with introduction of PPI and while on Dificid
Diet has been advanced with good tolerance and now formed stools with decreased frequency.
Stable for discharge home to complete course of Dificid and with continuation of PPI twice daily.
Follow-up with gastroenterology.
Original Note:
Today's Communication/Plan
-
continue dificid and PPI
PT/OT eval
discharge most likely today
Assessment / Plan
Assessment / Plan
Impression: This is a 68yo female patient with PMH for GERD, hiatal hernia, hypertension, past alcohol abuse, colitis, LA grade C/D esophagitis, recent admission with suspected C. difficile infection, prior GI bleed secondary to peptic ulcer, IBS,
suspected gout, anxiety, who presented to the emergency room with complaints of chest and abdominal pain and loose stools.
Presentation with recurrent nausea and vomiting and diffuse abdominal pain
Recurrent nonbloody diarrhea
Recently C. difficile antigen positive toxin negative
Recent hospitalization with pancolitis
History of alcohol use disorder.
GERD.
IBS
Essential hypertension
Hiatal hernia
Chronic normocytic anemia
Anxiety/depression
Gout
Plan:
#Abdominal/lower chest pain loose stools suspect secondary to GERD/gastritis/gastroenteritis.
-ECG with no ischemia
-Negative cardiac markers
-Elevated dimer prompted CT PE
-CT PE abdomen and pelvis negative for pulmonary embolism, mild interstitial edema, small hiatal hernia, mild mural thickening of -the esophagus diffusely, hepatic fatty infiltration, 1.2 cm increased attenuation of the lower pole of the right
kidney. Diverticulosis.
-Advanced liquid diet to low residue
-GI consulted: possible post inf IBS, considering xifaxan
-Stool cultures: antigen positive, toxin negative on 01/06
-fecal pancreatic elastase and calprotectin results pending
-Restarted Questran as per GI
-Improved frequency of bowel movements
-potassium improved today 3.7
-Continue Pantoprazole PO BID
-Continue Dificid
-PT/OT evaluated and completed
-discharge pending most likely today
#Chronic anemia
-Hemoglobin stable
-HB today 11.2
#History of alcohol use disorder
-Continue folic acid and thiamine
-Continue as needed Ativan
-No alcohol use in 2 weeks
#Recent suspected gout right ankle
#Vitamin D deficiency
#History of cholecystectomy with chronically dilated CBD
#Anxiety/depression
-Continue duloxetine
Full code
DVT prophylaxis�SCDs
Anticipated Discharge: Within 24 hours
Subjective/Interval History
-
Date of Service: January 10, 2024
Objective Data
-
Labs:
Laboratory Results
01/10/24
09:48
WBC 8.8
Hgb 11.2 L
Hct 32.8 L
Plt Count 258
Sodium Pending
Potassium Pending
Chloride Pending
Carbon Dioxide Pending
BUN Pending
Creatinine Pending
Glucose Pending
Calcium Pending
Vital Signs:
Vital Signs
Temp Pulse Resp BP Pulse Ox
97.8 F 77 14 155/81 94
01/10/24 07:00 01/10/24 07:00 01/10/24 07:00 01/10/24 07:00 01/10/24 07:00
I&O
01/09/24 01/10/24 01/11/24
06:59 06:59 06:59
Intake Total 1260 / 1260 1680 / 1680 240 / 240
Balance 1260 / 1260 1680 / 1680 240 / 240
Review of Systems
-
History Source: Patient
All other systems: Reviewed and negative
Physical Exam
-
General: No Apparent Distress
HEENT: Normocephalic, Atraumatic and Moist Mucous Membranes
Respiratory: Clear to Auscultation
Cardiac: Regular Rhythm and S1/S2; Negative Murmur, Rub or Gallop
GI: Soft, Nontender, Nondistended and Normal Bowel Sounds; Negative Organomegaly
Rectal: Deferred by Provider
Musculoskeletal: No Clubbing, No Cyanosis and No Edema
Skin: Negative Rash
Neuro: Awake, Alert, Oriented and Nonfocal/Grossly Intact
[2024-01-10 10:57] LABS: Blood Urea Nitrogen 17 mg/dl (7-17); Calcium 9.1 mg/dl (8.4-10.2); Carbon Dioxide 22 mmol/L (22-30); Chloride 103 mmol/L (98-107); Estimated Creatinine Clearance 47 ml/min; Glucose 126 mg/dl (70-99); Potassium 3.7 mmol/L (3.5-5.1); Sodium 134 mmol/L (135-145); eGFR > 60.00
[2024-01-10 13:05] VITALS: BP 131/75; PULSE 83; O2SAT 97
--- NOTE | 2024-01-10 13:58 | W.PN.GI.CBS2 ---
Addendum entered and electronically signed by Krysta Griffin MD 01/10/24 16:00:
I saw and examined the patient.
The GRUBBER's note was reviewed and I agree with the note.
Comment: Chronic recurrent diarrhea C. difficile antigen positive but toxin negative could DC Dificid. Continue Questran can increase to twice daily. Tolerating low residue diet. Okay to DC home for outpatient GI follow-up and outpatient
colonoscopy to rule out microscopic colitis and IBD was ruled out for celiac.
Esophagitis continue PPI twice daily and Carafate. Would also do repeat endoscopy with colonoscopy to check for healing consider GES as OP
Original Note:
Today's Communication / Plan
-
as per plan
Assessment / Plan
-
The patient is a 68-year-old female with a past medical history significant for GERD, hiatal hernia, hypertension, prior daily alcohol use, colitis, LA grade C/D esophagitis, recent admission with suspected C. difficile infection, prior GI bleed
secondary to peptic ulcer, IBS, suspected gout, anxiety, who presented to the emergency room with complaints of chest and abdominal pain. Noted with prior admission at the beginning of this month with similar symptoms treated for possible C.
difficile infection with Dificid and oral vancomycin with improvement in symptoms. He was also started on Questran. Celiac negative historically. In regards to her upper GI symptoms she was placed on PPI twice daily and Carafate, but she was not
compliant with these medications at home therefore returned with recurrent symptoms. Prior CT imaging did show pancolitis and a distended stomach. CTA imaging on this admission showing no overt find to explain her current symptoms but did show
likely esophagitis. She is improving clinically and requesting liquids.
Problem list:
-diarrhea
-Recurrent nausea/vomiting
-Recurrent nonbloody diarrhea, prior C. difficile showing antigen positive but toxin negative
-Recent admission with pancolitis
-History of alcohol abuse
-GERD
-CT imaging showing a 1.2 cm renal lesion, fatty liver, small hiatal hernia, mild interstitial edema, diverticulosis
-Mildly elevated LFTs
Other pertinent medical history:
-Hypertension
-Hiatal hernia
-Anxiety/depression
-IBS
-Suspected gout
Recommendations:
nausea and vomiting resolved secondary to gastroenteritis/viral etiology versus gastroparesis versus severe reflux versus postinfectious IBS versus other.
recent treatment for C-diff ag + tox neg with dificid continued now
other stools neg
cont low residue/low lactose diet
fecal maicol, elastase pending,
TSH normal, celiac negative
hold Imodium
-Patient should have o/p colonoscopy with bx to excluding underlying IBD (prior CT with pancolitis ), microscopic colitis (pt has been on Duloxetine and PPI which can trigger microscopic colitis )
consider Xifaxan trial
Continue Questran, patient is s/p CCY and she has improved on this in the past when she was on this here. She states that she will take her meds this time if DC on them. Not sure if she has these avaible to her at home.
- continue PPI twice daily and Carafate ACHS with hx esophagitis
-To consider gastric emptying study given her recurrent symptoms and significant esophagitis as she admits to early satiety and bloating symptoms.
-If symptoms do not improve ultimately, to consider repeat EGD with hx esophagitis to check healing. Patient needs complaince with PPI and Carafate.
-ETOH abstinence
-Social work assistance with patient to see if able to get VNA to help prevent readmission.
Subjective
Subjective
Date of Service: January 10, 2024
Patient states she feels better today. Some mild nausea that was improved with eating solid meal. She lad some looser stool. Continues on Dificid and Colestyramine. Patient states that she never takes her meds at home. But 'this time I'm going to
take my meds'. She denies any abdominal pain.
Objective
Data Reviewed
Laboratory Data:
Laboratory Results
01/10/24 09:48
01/10/24 09:48
Laboratory Results
PT 12.3 Sec (11.4-14.6) 01/06/24 11:21
PT Cancelled 01/06/24 11:21
INR 0.93 01/06/24 11:21
INR Cancelled 01/06/24 11:21
Total Bilirubin 0.6 mg/dl (0.2-1.3) 01/09/24 07:19
AST 30 U/L (14-36) 01/09/24 07:19
ALT 20 U/L (0-35) 01/09/24 07:19
Alkaline Phosphatase 90 U/L (38-126) 01/09/24 07:19
Vital Signs and I&O:
Vital Signs
Temp Pulse Resp BP Pulse Ox
97.8 F 77 14 155/81 94
01/10/24 07:00 01/10/24 07:00 01/10/24 07:00 01/10/24 07:00 01/10/24 07:00
I&O
01/09/24 01/10/24 01/11/24
06:59 06:59 06:59
Intake Total 1260 / 1260 1680 / 1680 240 / 240
Balance 1260 / 1260 1680 / 1680 240 / 240
Physical Exam
Physical Exam
HEENT: Anicteric
Cardiology: Normal Sinus Rhythm
Pulmonary: Clear
GI: Soft, Non Distended, Non Tender and Normal Bowel Sounds
Extremities: No Edema
Neuro: Non Focal
--- NOTE | 2024-01-10 14:04 | PTOTSP ---
pt currently requires no assistance to complete simple ADLs, functional transfers, ambulation. educated pt on medication managment, strategies to allow pt to remember medication schedule. pt verbalized understanding. no acute OT needs identified,
will sign off.
[2024-01-10 14:30] VITALS: BP 132/81
--- NOTE | 2024-01-10 16:27 | PN.CDI ---
CDI
- -
CDI:
Physician Documentation Request
Admit Date: 01/08/24 09:09
Dear Doctor Brendan,
Please review the following and provide your response in the progress notes.
Clinical Indicators:
Pt Admitted with abdominal discomfort/epigastric pain/loose stools/ Presentation with recurrent nausea and vomiting and diffuse abdominal pain
Progress note 01/08, ' -potassium repleted, was 3.3..'
Per MAR did get 40 MEQ PO KCL x1 on 01/08
Based on the above, could you clarify in the progress notes, the appropriate diagnosis, if significant, that supports the above abnormalities and additional evaluation, monitoring and/or treatment rendered:
Hypokalemia
Abnormal lab value only
Other
Use of terms such as suspected, likely, concern for, or probable (associated with a specific diagnosis that is being evaluated, monitored, or treated as if it exists) are acceptable and can be coded in the inpatient setting, when documented at the
time of discharge.
Thank you,
Nia Godoy RN
CDI Specialist
[place] [facility]
Please use your independent medical judgment in providing your response.
--- NOTE | 2024-01-10 16:35 | PN.CDI ---
CDI
- -
CDI:
Physician Documentation Request
Admit Date: 01/08/24 09:09
Dear Doctor Brendan,
Please review the following and provide your response in the progress notes.
Clinical Indicators:
Pt Admitted with abdominal discomfort/epigastric pain/loose stools/ Presentation with recurrent nausea and vomiting and diffuse abdominal pain
Sodium levels are as below /Did get IVFs
01/06/24 01/10/24
11:21 09:48
Sodium 134 L 134 L
Based on the above, could you clarify in the progress notes, the appropriate diagnosis, if significant, that supports the above abnormalities and additional evaluation, monitoring and/or treatment rendered:
Hyponatremia
Abnormal lab value only
Other
Use of terms such as suspected, likely, concern for, or probable (associated with a specific diagnosis that is being evaluated, monitored, or treated as if it exists) are acceptable and can be coded in the inpatient setting, when documented at the
time of discharge.
Thank you,
Nia Godoy RN
CDI Specialist
[place] [facility]
Please use your independent medical judgment in providing your response.
[2024-01-11 00:21] LABS: Endomysial IgA Antibody Titer <1:10 (<1:10)
[2024-01-14 00:18] LABS: Pancreatic Elastase, Fecal >800 ug/g (>=100)
== END 2024-01-10 16:35 | disposition home or self-care (01) | DRG 372 ==
LOC: 4 WEST ACU 09:09
PROVIDERS: Emergency Medicine; Nurse Practitioner Adult Health; Physician Assistant; Student in an Organized Health Care Education/Training Program; ADMITTING PHYSICIAN Hospitalist; ATTENDING PHYSICIAN Internal Medicine; EMERGENCY PHYSICIAN Emergency Medicine; FAMILY PHYSICIAN Family Medicine; OTHER PHYSICIAN Specialist
DX: A04.72 Enterocolitis due to Clostridium difficile, not specified as recurrent (principal); E87.1 Hypo-osmolality and hyponatremia; K21.00 Gastro-esophageal reflux disease with esophagitis, without bleeding; I10 Essential (primary) hypertension; K44.9 Diaphragmatic hernia without obstruction or gangrene; D64.9 Anemia, unspecified; F10.10 Alcohol abuse, uncomplicated; N28.89 Other specified disorders of kidney and ureter; K58.9 Irritable bowel syndrome, unspecified; F41.9 Anxiety disorder, unspecified; K76.0 Fatty (change of) liver, not elsewhere classified; E55.9 Vitamin D deficiency, unspecified; E87.6 Hypokalemia; K57.30 Diverticulosis of large intestine without perforation or abscess without bleeding; K83.8 Other specified diseases of biliary tract; F32.A Depression, unspecified; M10.9 Gout, unspecified; Z91.148 Patient's other noncompliance with medication regimen for other reason; Z87.891 Personal history of nicotine dependence; Z90.49 Acquired absence of other specified parts of digestive tract; Z87.11 Personal history of peptic ulcer disease; Z91.199 Patient's noncompliance with other medical treatment and regimen due to unspecified reason; Z88.6 Allergy status to analgesic agent; Z88.2 Allergy status to sulfonamides; Z88.8 Allergy status to other drugs, medicaments and biological substances
CPT/HCPCS: 71275; 74177; 80048; 80053; 82653; 82784; 83036; 83516; 83993; 84443; 84484; 85025; 85027; 85379; 85610; 86231; 87045; 87046; 87324; 87328; 87329; 87427; 87449; 89055; 93005; 96374; 96375; 96376; 97166; 99285; Q9967

== ENCOUNTER 2024-01-12 13:57 | Emergency (ER) | payer MEDICARE, SELFPAY ==
[2024-01-12 14:02] VITALS: BP 159/90
--- NOTE | 2024-01-12 14:02 | ED.GENMED ---
History of Present Illness
General
Chief Complaint: Abdominal Symptoms
Source: patient and ambulance crew
Exam Limitations: none
Time Seen by Provider: 01/12/24 14:02
Nursing documentation reviewed up to this point in time: agreed with
History of Present Illness
History of Present Illness:
68-year-old female with history of HTN, GERD, GI bleed, anxiety, cholecystectomy, hysterectomy admitted here 01/07 to 01/09 for diarrhea secondary to C. difficile, esophagitis was discharged on pantoprazole, Dificid, Saccharomyces Boulardii to 50 mg
capsule
Today she called EMS due to 'I was extremely nauseated,' she vomited 3 times today, also developed left upper quadrant, lower chest pains. Continues with diarrhea but that is much improved.
States she felt 'fine' yesterday.
Denies fever or chills. She does feel weak and shaky.
Past History
Past History
ED Past Medical History: Cancer (Skin Cancer face), GERD, HTN, Psychiatric (Aniety), Other (GI bleeding, HIatal hernia. Ulcers, anemia. ) and Other (recent colitis, severe esophagitis, alcohol abuse, benzodiazepine withdrawal)
ED Past Surgical History: Appendectomy, Cholecystectomy, Gynecological (hysterectomy, RUE epicondylitis X 2) and Orthopedic
Patient has exhibited threatening behavior?: No
PSI?: No
Social History
Tobacco: Former smoker
Alcohol: Occasional
Drug: None
Personal:
Living: alone
Family History
Family History: Other
Review of Systems
Review of Systems
Allergies reviewed?: Yes
All Other Systems: ROS reviewed and negative except as documented in HPI and ROS
Constitutional: Denies fever
Respiratory: Denies trouble breathing
Cardiac: Reports chest pain
ABD/GI: Reports abdominal pain, nausea, vomiting and diarrhea; Denies bloody stools or black stools
: Denies dysuria, frequency or difficulty voiding
Musculoskeletal: Reports no symptoms
Skin: Reports no symptoms
Neurological: Reports dizzy (and lightheaded); Denies headache
Phy Exam
Physical Exam
Physical Exam:
GENERAL: No acute distress. A&Ox3.
CONSTITUTIONAL: Afebrile.
ENMT: moist mucus membranes, Pharynx nl
RESPIRATORY: Regular respirations, nonlabored, lungs clear.
CARDIOVASCULAR: Regular rate and rhythm, no murmurs, no rubs.
GI: Soft, tender w guarding LUQ, left anterior lower ribs tender to palpation, normal BS, nondistended
MUSCULOSKELETAL: Moves with ease. Well perfused.
SKIN: Warm, dry, pink
PSYCH: Normal mood and affect. Well kept, interactive and appropriate
NEUROLOGIC: Awake, alert and oriented. No focal neurological deficits
Course
Orders/Labs/Results
Orders:
Orders
01/12/24 14:04
0.9% Sodium Chloride 1000 ml [Nss] 1,000 ml IV BOLUS
01/12/24 14:05
Electrocardiogram (*1) Urgent
Reason for Study: Chest Pain
EKG- Treatment ONCE
01/12/24 14:06
Ondansetron Injectable [Zofran] 4 mg IV NOW STA
01/12/24 15:45
Complete Blood Count/With Diff Urgent
Comprehensive Metabolic Panel Urgent
Lipase Urgent
Troponin I Urgent
01/12/24 16:57
Lorazepam [Ativan] 0.5 mg PO NOW STA
01/12/24 17:01
CR Chest - 2 Views Urgent
Comment:
Reason For Exam: mid chest pain
01/12/24 17:02
Mag Hydrox/Al Hydrox/Simeth [Maalox] 30 ml Phenobarb/Hyoscy/Atropine/Scop [] 10 ml Viscous Lidocaine 2% [Xylocaine Viscous Cup] 10 ml PO NOW
01/12/24 17:04
Phenobarb/Hyoscy/Atropine/Scop [] 10 ml .ROUTE .STK-MED ONE
01/12/24 17:05
Mag Hydrox/Al Hydrox/Simeth [Maalox] 30 ml .ROUTE .STK-MED ONE
Viscous Lidocaine 2% [Xylocaine Viscous Cup] 15 ml .ROUTE .STK-MED ONE
01/12/24 17:41
Ondansetron Injectable [Zofran] 4 mg IV NOW STA
Abnormal Lab Results
01/12/24
15:45
RBC 3.65 L 10^6/uL
(4.20-5.40)
Hct 33.6 L %
(37.0-47.0)
MCH 32.9 H pg
(27.0-31.0)
RDW 14.9 H %
(11.5-14.5)
Abs Immat Gran (auto) 0.1 H 10^3/uL
(0-0.05)
Absolute Neuts (auto) 6.8 H 10^3/uL
(1.4-6.5)
Lymphocytes % 19.4 L %
(20.5-51.1)
Carbon Dioxide 19 L mmol/L
(22-30)
BUN 18 H mg/dl
(7-17)
Creatinine 1.1 H mg/dL
(0.6-1.0)
Glucose 112 H mg/dl
(70-99)
AST 82 H U/L
(14-36)
ALT 54 H U/L
(0-35)
Alkaline Phosphatase 128 H U/L
(38-126)
01/12/24 15:45
01/12/24 15:45
Vital Signs
Initial and Last Documented VS:
Initial Vital Signs
Temp Pulse Resp BP Pulse Ox
98.6 F 96 16 159/90 100
01/12/24 14:02 01/12/24 14:02 01/12/24 14:02 01/12/24 14:02 01/12/24 14:02
Last Documented Vital Signs
Temp Pulse Resp BP Pulse Ox
98.6 F 87 26 160/81 96
01/12/24 14:02 01/12/24 18:00 01/12/24 18:00 01/12/24 18:00 01/12/24 18:00
MDM/Problems Addressed
Differential Diagnosis Includes:
ACS, dehydration, gastritis, GERD
MDM/Problems Addressed:
68-year-old female with history of HTN, GERD, GI bleed, anxiety, cholecystectomy, hysterectomy admitted here 01/07 to 01/09 for diarrhea secondary to C. difficile positive, toxin negative, esophagitis was discharged on pantoprazole, Dificid,
Saccharomyces Boulardii to 50 mg capsule
Today she called EMS due to 'I was extremely nauseated,' she vomited 3 times today, also developed left upper quadrant, lower chest pains. Continues with diarrhea but that is much improved.
States she felt 'fine' yesterday.
Denies fever or chills. She does feel weak and shaky.
EKG: NSR
4:33 PM
CBC with no clinically significant abnormality
CMP with no clinically significant abnormality has had mildly to moderately elevated liver enzymes in the past
Lipase WNL
Troponin within normal limits
Case discussed with Dr. Juares
Will attempt to feed pt
Patient has been out of bed and ambulated to bathroom independently multiple times to urinate.
UA pending
She remains nervous and tremulous, offered Ativan to help her calm her nerves and she agrees she could certainly use something like that.
Stating she had pain, pointing to mid to lower sternum and epigastric area. Takes her Pantoprazole daily
Will give GI cocktail and CXR pending
5:41 PM
Some relief of chest pain after GI cocktail
Patient asking for more Zofran for nausea. She has not vomited during this visit
Reassured that her workup here shows nothing worrisome.
She has been drinking silvia nava and holding it down
She is stable for discharge.
Prescription for Zofran sent to her pharmacy
*EKG
EKG Intrepretation Date: 01/12/24
Interpretation: normal
Rate: normal
Rhythm: sinus
[place]: normal axis
Interval: normal interval
QRS Pattern: normal QRS
Ischemia: no ischemia
*Critical Care Note
Total Time (30-74mins, 75-104mins- exclusive of procedures): Not Applicable
ED Attending Note
-
Portions of this chart may have been created with voice recognition software.� Occasional wrong word or��sound alike� substitutions may have occurred due to the inherent limitations of voice recognition software.
Discharge Plan
Departure
Patient Disposition: Home (Routine Discharge)
Date of Disposition: 01/12/24
Time of Disposition: 18:04
Patient with high blood pressure during this ER visit?: No
Condition: Fair
Discharge Problem:
Gastritis, Nausea and vomiting in adult
Instructions: Nausea and Vomiting, Adult (DC)
Prescriptions:
New
ondansetron HCl 4 mg tablet
4 mg PO Q8H PRN (Reason: nausea and vomiting) 5 Days Qty: 14 0RF
No Action
esomeprazole magnesium [Nexium] 20 mg Capsule,Delayed Release(Dr/Ec)
20 mg PO BID
sucralfate 1 gram Tablet
1 g PO ACHS Qty: 120 0RF
duloxetine 20 mg Capsule,Delayed Release(Dr/Ec)
20 mg PO DAILY Qty: 30 0RF
folic acid 1 mg Tablet
1 mg PO DAILY Qty: 30 0RF
thiamine HCl (vitamin B1) 100 mg Tablet
100 mg PO DAILY Qty: 30 0RF
cholecalciferol (vitamin D3) 125 mcg (5,000 unit) Tablet
125 mcg PO DAILY Qty: 30 0RF
cholestyramine-aspartame [Cholestyramine Light] 4 gram Powder In Packet
1 ea PO DAILY Qty: 60 0RF
pantoprazole 40 mg Tablet,Delayed Release (Dr/Ec)
40 mg PO BID 30 Days Qty: 60 0RF
Saccharomyces boulardii 250 mg Capsule
250 mg PO BID 30 Days Qty: 60 0RF
Dificid 200 mg Tablet
200 mg PO BID 5 Days Qty: 10 0RF
Patient Comments:
01/12/2024, filled on 12/31/2023 and instructed to take one tablet BID for 10 days.
famotidine 40 mg Tablet
40 mg PO HS
sumatriptan succinate 50 mg Tablet
0 mg PO .COMPLEX
Rx Instructions:
01/12/2024, take 1 tab at onset of headache; if no relief may repeat 1 tab after at least 2 hrs; max = 4 tabs/24 hr.
prochlorperazine maleate 10 mg Tablet
10 mg PO DAILYPRN PRN (Reason: migraine)
vancomycin 125 mg Capsule
125 mg PO QID
Patient Comments:
01/12/2024, last filled on 12/27/2023 and instructed to take one capsule QID for 9 days.
propranolol 10 mg Tablet
10 mg PO BID
nitroglycerin 0.4 mg Tablet, Sublingual
0.4 mg SUBLINGUAL [id number] PRN (Reason: chest pain)
alum-mag hydroxide-simeth [Mylanta] 200-200-20 mg/5 mL Suspension
0 ml PO DIRECTED
Patient Comments:
01/12/2024, one dose.
Balmex Diaper Rash 11.3 % Cream
1 applic TOPICAL DIRECTED
Gas Relief (simethicone) 250 mg Capsule
250 mg PO DIRECTED
lorazepam 0.5 mg Tablet
0.5 mg PO HS
Patient Comments:
01/12/2024, last filled on 11/15/2023 for 7 tablets per PDMP.
Referrals:
Ramin Warner MD [Active] - Next open appointment
NONE,* [Family Provider] -
Activity Restrictions/Additional Instructions:
As we discussed, I see nothing worrisome in your evaluation here today. Your chest x-ray is normal, your EKG is normal, your lab work shows nothing worrisome.
Call Dr. Warner's office tomorrow morning and make next available.
Drink plenty of fluids to stay hydrated.
I sent a prescription to your pharmacy for Zofran to use as needed for nausea and vomiting
Interventions
Interventions:
*Risk Screen - Suicide Last Done: 01/12/24 14:02
*General Assessment Last Done: 01/12/24 14:02
*Neglect/Abuse Screening Last Done: 01/12/24 14:02
ED- Fall Risk Assessment Last Done: 01/12/24 14:37
*ED COVID-19 Vaccine History Last Done: 01/12/24 14:02
*Nursing Disposition Last Done: 01/12/24 18:46
[id number]-[id number] Assessment Last Done: 01/12/24 14:37
Discharge Date and Time
Discharge Date/Time: 01/12/24 18:55
Print Language: DANISH
[2024-01-12 14:03] VITALS: BP 159/90
[2024-01-12 15:00] VITALS: BP 146/83
[2024-01-12] MEDS: NSS 1000 IV (15:46)
[2024-01-12] MEDS: ZOFRAN 4 MG IV ×2 (15:46→17:49)
[2024-01-12 15:59] LABS: % Basophils 0.5 % (0-2); % Eosinophils 0.3 % (0-6); % Immature Granulocytes 0.5 % (0-0.5); % Lymphocytes 19.4 % (20.5-51.1); % Monocytes 6.9 % (1.7-9.3); % Neutrophils 72.4 % (42.2-75.2); Absolute Basophils 0.1 10^3/uL (0-0.2); Absolute Immature Granulocytes 0.1 10^3/uL (0-0.05); Absolute Lymphocytes 1.8 10^3/uL (1.2-3.4); Absolute Monocytes 0.6 10^3/uL (0.1-0.6); Absolute Neutrophils 6.8 10^3/uL (1.4-6.5); Hematocrit 33.6 % (37.0-47.0); Mean Corp Hgb Conc. 35.7 g/dL (33.0-37.0); Mean Corpuscular Hgb 32.9 pg (27.0-31.0); Mean Corpuscular Volume 92.1 fL (81.0-99.0); Mean Platelet Volume 9.4 fL (7.4-10.4); Nucleated Red Blood Cells % 0 %; Platelet Count 297 10^3/uL (130-400); Red Blood Cell Count 3.65 10^6/uL (4.20-5.40); Red Cell Dist. Width 14.9 % (11.5-14.5); White Blood Cell Count 9.3 10^3/uL (4.8-10.8)
[2024-01-12 16:07] LABS: ALT (SGPT) 54 U/L (0-35); AST (SGOT) 82 U/L (14-36); Albumin 4.7 g/dl (3.5-5.0); Alkaline Phosphatase 128 U/L (38-126); Blood Urea Nitrogen 18 mg/dl (7-17); Calcium 9.7 mg/dl (8.4-10.2); Carbon Dioxide 19 mmol/L (22-30); Chloride 104 mmol/L (98-107); Estimated Creatinine Clearance 43 ml/min; Glucose 112 mg/dl (70-99); Lipase 111 U/L (23-300); Potassium 3.6 mmol/L (3.5-5.1); Sodium 137 mmol/L (135-145); Total Protein 7.7 g/dl (6.3-8.2); eGFR 54.06
[2024-01-12 16:19] LABS: Troponin I < 0.012 ng/ml
--- NOTE | 2024-01-12 16:48 | PHANOTE ---
Addendum entered by Nathanael Deras 01/12/24 16:52:
01/12/2024, med rec tech, used discharge paperwork from 01/10/2024 as a source as well.
Original Note:
01/12/2024, med rec tech, pt. does not know what meds. they are taking; visiting nurse from [place] does not know what meds. pt. is taking either as it was their first day visiting pt. at home; used pharmacy fill data, bottles of pt.'s own meds.,
PDMP, and ECW to compile a list of pt.'s meds.
[2024-01-12] MEDS: ATIVAN 0.5 MG PO (17:06)
[2024-01-12] MEDS: MAALOX 50 PO (17:06)
[2024-01-12 18:00] VITALS: BP 160/81
== END 2024-01-12 18:55 | disposition home or self-care (01) ==
LOC: EMR 13:57
PROVIDERS: Registered Nurse; EMERGENCY PHYSICIAN Emergency Medicine
DX: K29.70 Gastritis, unspecified, without bleeding (principal); R11.2 Nausea with vomiting, unspecified; Z87.891 Personal history of nicotine dependence; I10 Essential (primary) hypertension; K21.9 Gastro-esophageal reflux disease without esophagitis
CPT/HCPCS: 99285; 96374; 96361; 96376; 71046; 80053; 83690; 84484; 85025; 93005

== ENCOUNTER 2024-01-16 04:30 | Inpatient (IN) | payer MEDICARE, SELFPAY ==
--- NOTE | 2024-01-15 21:09 | ED.GENMED ---
History of Present Illness
General
Chief Complaint: Abdominal Pain
Source: patient
Exam Limitations: none
Time Seen by Provider: 01/15/24 21:08
Nursing documentation reviewed up to this point in time: agreed with
History of Present Illness
History of Present Illness:
68 yr old female with PMH of GERD/esophagitis , alcohol use disorder anxiety , gout, IBS presents to the ED for evaluation brought By EMS for epigastric pain. Patient complains of epigastric pain. She does admit to drinking 2 bloody Ivette's and
started with discomfort after. Patient was recently hospitalized January 07 and discharged January 09 for abdominal discomfort nausea vomiting. Prior to that she was admitted for C. difficile however in prior records it stated she was non compliant.
Patient is not taking any of her medicine including any of her PPIs, and acids. Patient denies any actual chest pain shortness of breath. She reports pain again got worse after having 2 bloody nares and she points to pain in the epigastric region.
Patient denies diarrhea. Patient denies any fever chills abdominal pain vomiting.
Past History
Past History
ED Past Medical History: Cancer (Skin Cancer face), GERD, HTN, Psychiatric (Aniety), Other (GI bleeding, HIatal hernia. Ulcers, anemia. ) and Other (recent colitis, severe esophagitis, alcohol abuse, benzodiazepine withdrawal)
ED Past Surgical History: Appendectomy, Cholecystectomy, Gynecological (hysterectomy, RUE epicondylitis X 2) and Orthopedic
Patient has exhibited threatening behavior?: No
PSI?: No
Social History
Tobacco: Former smoker
Alcohol: Occasional
Drug: None
Personal:
Living: alone
Family History
Family History: Other
Review of Systems
Review of Systems
Allergies reviewed?: Yes
All Other Systems: ROS reviewed and negative except as documented in HPI and ROS
Constitutional: Reports no symptoms; Denies fever, fatigue or chills
Respiratory: Reports no symptoms
Cardiac: Reports no symptoms
ABD/GI: Reports abdominal pain; Denies nausea, vomiting or diarrhea
: Reports no symptoms
Musculoskeletal: Reports no symptoms
Skin: Reports no symptoms
Neurological: Reports no symptoms
Psychiatric: Reports no symptoms
Phy Exam
General Physical Exam
General Presentation: no apparent distress
General age: appears stated age
General Skin: warm and dry
General Habitus: normal
General Mental: alert
General Hydration: appears well hydrated
Cardiovascular Exam
Cardiovascular Exam: regular rate/rhythm, no murmur and normal peripheral pulses
Course
Orders/Labs/Results
Orders:
Orders
01/15/24 21:27
IV Insert/Care/Rem.- Treatment PRN
01/15/24 21:28
Mag Hydrox/Al Hydrox/Simeth [Maalox] 30 ml Phenobarb/Hyoscy/Atropine/Scop [] 10 ml PO NOW
01/15/24 21:32
Phenobarb/Hyoscy/Atropine/Scop [] 10 ml .ROUTE .STK-MED ONE
01/15/24 21:33
Mag Hydrox/Al Hydrox/Simeth [Maalox] 30 ml .ROUTE .STK-MED ONE
01/15/24 21:36
Alcohol Urgent
Complete Blood Count/With Diff Urgent
Comprehensive Metabolic Panel Urgent
Lipase Urgent
01/15/24 21:45
Electrocardiogram (*1) Stat
Reason for Study: Other
Other Reason for Exam: chest pain
EKG- Treatment ONCE
01/15/24 22:44
0.9% Sodium Chloride 1000 ml [Nss] 1,000 ml IV BOLUS
Famotidine [Pepcid] 20 mg IV NOW STA
Ondansetron Injectable [Zofran] 4 mg IV NOW STA
01/16/24 00:46
Ondansetron Injectable [Zofran] 4 mg IV NOW STA
01/16/24 00:47
US Abdomen Complete/Upper Urgent
Comment:
Reason For Exam: upper abd pain
01/16/24 02:43
Morphine Sulfate 4 mg IV NOW STA
01/16/24 02:44
CT Abd/Pel (IV only)-DH only Urgent
Comment:
Reason For Exam: upper abd pain
Potassium Chloride [KCl] 40 meq 0.9% Sodium Chloride 250 ml [Nss] 250 ml IV NOW
01/16/24 03:25
Add On- LAB Urgent
Comments:: sample in lab
Tests Added?: serum alcohol
01/16/24 03:29
Admit/Transfer Patient As Directed
Co-Sign Provider:
Level of Care: Inpatient admission
Assign to:: Medical/Surgical
Physician / Group: jerry
Diagnosis: gastritis
Reason for Hospitalization: gastritis
Expected length of stay greater than two midnights?: Yes
ELOS- Estimated Length of Stay in days: 2
I certify the patient meets the requirements for IP care: Yes
01/16/24 03:30
Code Status As Directed
Resuscitation Status: Full Code
01/16/24 03:35
0.9% Sodium Chloride [Nss (Preservative Free)] See Protocol IV PRN PRN
FOLic ACID [Folvite] 1 mg 0.9% Sodium Chloride 50 ml [Nss] 50 ml IV DAILYPRN
Lorazepam [Ativan] 1 mg IV Q1HPRN PRN
Lorazepam [Ativan] 1 mg PO Q2HPRN PRN
Lorazepam [Ativan] 2 mg IV Q1HPRN PRN
MSAS SCORE As Directed
MSAS Score 0-4: Repeat MSAS every 2 hours until 0-4 for three consecutive assessments, then every 4 hours x 48
hours.
MSAS Score 5-7: For MILD withdrawl symptoms. Repeat MSAS and RASS every 2 hours
MSAS Score 8-11: For MODERATE withdrawal symptoms. Repeat MSAS and RASS every 1 hour. Consider ICU or IMU
level of care.
MSAS Score > 11: For SEVERE withdrawal symptoms. Repeat MSAS and RASS every 1 hour. Notify provider, consider
ICU level of care.
MSAS Additional Instructions: If no improvement or no decrease in score from severe to moderate within 12
hours, consult psychiatry
MSAS Notify Provider: Notify provider if patient requires more than 10 mg of Lorazepam in eight hour period.
01/16/24 04:00
Flush (0.9% Sodium Chloride) [Flush (Nss)] See Dose Instructions IV PER PROTOCOL
01/16/24 06:07
0.9% Sodium Chloride 1000 ml [Nss] 1,000 ml IV 100 mls/hr
Balmex [Balmex Cream] 1 applic TOPICAL DIRECTED
Mag Hydrox/Al Hydrox/Simeth [Maalox] 20 ml PO ACHS PRN
Nitroglycerin Sublingual [Nitrostat (Sublingual)] 0.4 mg SL [id number] PRN
Ondansetron Injectable [Zofran] 4 mg IV Q6HPRN PRN
Prochlorperazine [Compazine] 10 mg PO DAILYPRN PRN
Sumatriptan Succinate [Imitrex] See Dose Instructions PO DAILYPRN PRN
simethicone [Gas Relief (simethicone)] 250 mg PO DIRECTED
01/16/24 06:07
Consult Notification Routine
Specialty to Notify: Gastroenterology
Date consulting provider notified: 01/16/24
Time consulting provider notified: 07:28
Notified:: Service
GASTROINTESTINAL CONSULT Routine
Consulting Provider: Tashi Rosen
Was physician already notified: No
Reason for consult: gastritis
Activity As Directed
Activity Level: As Tolerated
Vital Signs As Directed
Frequency: Per unit guidelines
DX Deep Vein Thrombosis Video Routine
01/16/24 07:30
Sucralfate [Carafate] 1 gram PO ACHS
01/16/24 08:00
0.9% Sodium Chloride [Nss (Preservative Free)] 10 ml IV BID
Cholecalciferol (Vitamin D3) [VITAMIN D3 (cholecalciferol)] 125 mcg PO DAILY
Duloxetine Delayed Release [Cymbalta Delayed Release] 20 mg PO DAILY
FOLic ACID [Folvite] 1 mg PO DAILY
FOLic ACID [Folvite] 1 mg PO DAILY
Fidaxomicin [Dificid] 200 mg PO BID
Heparin 5,000 units SC Q12
Pantoprazole [Protonix IV] 40 mg IV BID
Propranolol [Inderal] 10 mg PO BID
Saccharomyces Boulardii [Florastor] 250 mg PO BID
Thiamine HCl [Vitamin B1] 100 mg PO DAILY
Thiamine Injection 200 mg IV Q12
01/16/24 09:00
Cholestyramine/Aspartame [Questran Light/Prevalite] 4 grams PO DAILY@0900
01/16/24 22:00
Famotidine [Pepcid] 40 mg PO HS
01/19/24 08:00
Thiamine HCl [Vitamin B1] 100 mg PO BID
Abnormal Lab Results
01/15/24
21:36
RBC 3.57 L 10^6/uL
(4.20-5.40)
Hgb 11.8 L g/dL
(12.0-16.0)
Hct 32.5 L %
(37.0-47.0)
MCH 33.1 H pg
(27.0-31.0)
RDW 14.8 H %
(11.5-14.5)
Absolute Monos (auto) 0.8 H 10^3/uL
(0.1-0.6)
Neutrophils % 32.9 L %
(42.2-75.2)
Lymphocytes % 51.4 H %
(20.5-51.1)
Monocytes % 11.7 H %
(1.7-9.3)
Potassium 3.1 L mmol/L
(3.5-5.1)
Chloride 109 H mmol/L
(98-107)
Carbon Dioxide 18 L mmol/L
(22-30)
Creatinine 1.1 H mg/dL
(0.6-1.0)
Glucose 108 H mg/dl
(70-99)
AST 60 H U/L
(14-36)
ALT 49 H U/L
(0-35)
01/15/24 21:36
01/15/24 21:36
Vital Signs
Initial and Last Documented VS:
Initial Vital Signs
BP
141/75
01/15/24 21:11
Last Documented Vital Signs
Temp Pulse Resp BP Pulse Ox
98.9 F 82 17 175/99 100
01/16/24 14:43 01/16/24 14:43 01/16/24 14:43 01/16/24 14:43 01/16/24 14:43
MDM/Problems Addressed
Differential Diagnosis Includes:
Not limited to GERD gastritis ulcer disease biliary stone, pancreatitis
MDM/Problems Addressed:
As documented patient is a 68-year-old female with reflux, who is noncompliant with any of her medications including her PPIs and acids. She was recent admitted for esophagitis January 07 discharged January 09.
patient has history of chronic alcohol abuse and admitted to drinking 2 bloody very alcoholic drinks and then after started with upper abdominal discomfort. Patient presents awake alert no acute distress abdomen soft and nontender. She was
given GI cocktail which did not improve her symptoms she was mildly nauseous and given Zofran along with Pepcid. She is noncompliant with any medications.
0045: On reexam patient now complains of a lot of upper abdominal discomfort which has worsened. Ultrasound shows prior cholecystectomy dilated common bile duct up to 1.8 cm enlarged from previous 1.5. No definite stone in the duct the distal duct
is not visualized. Case reviewed with ED attending despite normal lipase will check CT. Medicate for pain. Will treat potassium with KCl rider as potassium is 3.1 as patient still nauseous. Patient has a normal white count, creatinine 1.1
creatinine clearance 43 normal lipase.
Patient will require admission to the hospitalist I did review with hospitalist that CAT scan will be ordered for him [facility] to read
Review of medical records patient had a CT angio chest and abdomen with IV contrast for nausea vomiting diarrhea and black stool with a history of peptic ulcer disease January 05. This was negative for PE there is a small hiatal hernia no abnormal
focal inflammatory reaction of bowel diverticulosis without diverticulitis
*Radiology
Radiology exam reviewed: radiology read reviewed (US report reviewed )
*Pulse Oximetry
Patient hypoxic: no
*EKG
Interpreted by ED Provider?: Yes
Interpretation: normal
Heart Rate: 82
Rate: normal
Rhythm: sinus
Ischemia: no ischemia
*Critical Care Note
Total Time (30-74mins, 75-104mins- exclusive of procedures): Not Applicable
Data Reviewed
Review of Other/Old Records Reveals: Labs, Radiology Studies and Discharge Summary
Source: patient and ambulance crew
ED Attending Note
-
Portions of this chart may have been created with voice recognition software.� Occasional wrong word or��sound alike� substitutions may have occurred due to the inherent limitations of voice recognition software.
Discharge Plan
Departure
Patient Disposition: Admit
Date of Disposition: 01/16/24
Time of Disposition: 02:52
Admit to: Med/Surg
Admit to doctor: hospitalist
Presentation/result/management discussed w/ accepting MD/DO: Hospitalist
Patient with high blood pressure during this ER visit?: Yes
Condition: Fair
Covid-19: Not Applicable
Discharge Problem:
Acute upper abdominal pain, nausea and vomiting, Gastritis
Interventions
Interventions:
*Risk Screen - Suicide Last Done: 01/15/24 21:12
*General Assessment Last Done: 01/15/24 21:12
*Neglect/Abuse Screening Last Done: 01/15/24 21:12
ED- Fall Risk Assessment Last Done: 01/15/24 21:21
*ED COVID-19 Vaccine History Last Done: 01/15/24 21:12
*Nursing Disposition Last Done: 01/16/24 14:01
VH-Odromz-Dynonhvdzp Assessment Last Done: 01/16/24 06:30
Discharge Date and Time
Discharge Date/Time: 01/16/24 14:01
[2024-01-15 21:11] VITALS: BP 141/75
[2024-01-15 21:12] VITALS: BP 141/75; BMI 23.9
--- NOTE | 2024-01-15 21:25 | PHANOTE ---
Med Rec Note:
Pt states she doesn't take any of the medications that she brought with her. States she has no idea what they are. Pt discharged previously on c-diff and gi medications, pt states she hasn't taken them.
[2024-01-15] MEDS: MAALOX 40 PO (21:37)
[2024-01-15 21:45] LABS: % Basophils 0.9 % (0-2); % Eosinophils 2.6 % (0-6); % Immature Granulocytes 0.5 % (0-0.5); % Lymphocytes 51.4 % (20.5-51.1); % Monocytes 11.7 % (1.7-9.3); % Neutrophils 32.9 % (42.2-75.2); Absolute Basophils 0.1 10^3/uL (0-0.2); Absolute Eosinophils 0.2 10^3/uL (0-0.7); Absolute Lymphocytes 3.4 10^3/uL (1.2-3.4); Absolute Monocytes 0.8 10^3/uL (0.1-0.6); Absolute Neutrophils 2.2 10^3/uL (1.4-6.5); Hematocrit 32.5 % (37.0-47.0); Hemoglobin 11.8 g/dL (12.0-16.0); Mean Corp Hgb Conc. 36.3 g/dL (33.0-37.0); Mean Corpuscular Hgb 33.1 pg (27.0-31.0); Nucleated Red Blood Cells % 0 %; Platelet Count 357 10^3/uL (130-400); Red Blood Cell Count 3.57 10^6/uL (4.20-5.40); Red Cell Dist. Width 14.8 % (11.5-14.5); White Blood Cell Count 6.7 10^3/uL (4.8-10.8)
[2024-01-15 21:54] LABS: ALT (SGPT) 49 U/L (0-35); AST (SGOT) 60 U/L (14-36); Albumin 4.3 g/dl (3.5-5.0); Alkaline Phosphatase 123 U/L (38-126); Blood Urea Nitrogen 15 mg/dl (7-17); Calcium 8.5 mg/dl (8.4-10.2); Carbon Dioxide 18 mmol/L (22-30); Chloride 109 mmol/L (98-107); Estimated Creatinine Clearance 43 ml/min; Glucose 108 mg/dl (70-99); Lipase 51 U/L (23-300); Potassium 3.1 mmol/L (3.5-5.1); Sodium 143 mmol/L (135-145); Total Bilirubin 0.4 mg/dl (0.2-1.3); eGFR 54.06
[2024-01-15 22:00] VITALS: BP 142/89
[2024-01-15] MEDS: ZOFRAN 4 MG IV (22:47)
[2024-01-15] MEDS: NSS 1000 IV (22:48)
[2024-01-15] MEDS: PEPCID 20 MG IV (22:48)
[2024-01-15 23:36] VITALS: BP 163/89
[2024-01-16] VITALS (12 sets, daily range): BP systolic 142–186; BP diastolic 75–121; BMI 23.6; BMI 23.3
[2024-01-16] MEDS: ZOFRAN 4 MG IV (00:49)
[2024-01-16] MEDS: MORPHINE SULFATE 4 MG IV (02:47)
--- NOTE | 2024-01-16 03:40 | HPS.HSE ---
Family Physician
-
Family Physician: NOT KNOW UNKNOWN - PT DOES
Chief Complaint
-
epigastric pain
History of Present Illness
68-year-old female past medical history of C. difficile antigen positivity, GERD/esophagitis, hiatal hernia, peptic ulcer with prior bleeding, IBS, alcohol use disorder, suspected gout, anxiety, hypertension, presenting for epigastric pain. Patient
admits to drinking 2 bloody Gabriella last night and started having discomfort afterwards. She is having vomiting and diarrhea. Patient admits to not being compliant with PPIs. She denies any chest pain or shortness of breath.
Patient has been forgetting to take her medications and not been able to take care of herself at home.
Patient was recently admitted from 01/07 to 01/09 for chest/abdominal discomfort and nausea and vomiting after being admitted shortly prior to that for C. difficile infection not compliant with treatment. Patient was treated with IV fluids, Protonix
and diet was advanced. Patient was seen by GI.
Medical History
Past Medical History
Past Medical History: Reports Other ( C. difficile antigen positivity, GERD/esophagitis, hiatal hernia, peptic ulcer with prior bleeding, IBS, alcohol use disorder, suspected gout, anxiety, hypertension)
Past Surgical History: Reports Other ( Appendectomy, Cholecystectomy, Gynecological (hysterectomy, RUE epicondylitis X 2) and Orthopedic)
Social History
Tobacco: Non-smoker
Alcohol: Occasional
Drug: None
Family History
Family History: Not pertinent
Allergies / Home Medications
Allergies reflects when Allergies were last updated in [employer].
Home Medications with original date entered in [employer]
Allergy/Medication List:
Allergies
Allergy/AdvReac Type Severity Reaction Status Date / Time
aspirin Allergy Unknown Verified 01/15/24 21:18
gabapentin Allergy Unknown Verified 01/15/24 21:18
NSAIDS (Non-Steroidal Allergy Unknown Verified 01/15/24 21:18
Anti-Inflamma
[id number] Reductase Allergy Swelling Verified 01/15/24 21:18
Inhibitor
Sulfa (Sulfonamide Allergy Unknown Verified 01/15/24 21:18
Antibiotics)
Home Medications
esomeprazole magnesium 20 mg capsule,delayed release (Nexium) 20 mg PO BID Gastrointestinal Issue 12/22/23
cholecalciferol (vitamin D3) 125 mcg (5,000 unit) tablet 125 mcg PO DAILY #30 tabs 12/26/23
duloxetine 20 mg capsule,delayed release 20 mg PO DAILY #30 caps 12/26/23
folic acid 1 mg tablet 1 mg PO DAILY #30 tabs 12/26/23
sucralfate 1 gram tablet 1 g PO ACHS #120 tabs 12/26/23
thiamine HCl (vitamin B1) 100 mg tablet 100 mg PO DAILY #30 tabs 12/26/23
cholestyramine-aspartame 4 gram oral powder for susp in a packet (Cholestyramine Light) 1 ea PO DAILY #60 ea 12/30/23
Saccharomyces boulardii 250 mg capsule 250 mg PO BID 30 days #60 caps 01/10/24
fidaxomicin 200 mg tablet (Dificid) 200 mg PO BID 5 days #10 tabs 01/10/24
pantoprazole 40 mg tablet,delayed release 40 mg PO BID 30 days #60 tabs 01/10/24
aluminum-mag hydroxide-simethicone 200 mg-200 mg-20 mg/5 mL oral susp 10 - 20 ml PO ACHS PRN heartburn 01/12/24
famotidine 40 mg tablet 40 mg PO HS 01/12/24
lorazepam 0.5 mg tablet 0.5 mg PO HS 01/12/24
nitroglycerin 0.4 mg sublingual tablet 0.4 mg sublingual [id number] PRN chest pain 01/12/24
ondansetron HCl 4 mg tablet 4 mg PO Q8H PRN nausea and vomiting 5 days #14 tabs 01/12/24
prochlorperazine maleate 10 mg tablet 10 mg PO DAILYPRN PRN migraine 01/12/24
propranolol 10 mg tablet 10 mg PO BID 01/12/24
simethicone 250 mg capsule (Gas Relief (simethicone)) 250 mg PO DIRECTED 01/12/24
sumatriptan succinate 50 mg tablet 0 mg PO .COMPLEX 01/12/24
vancomycin 125 mg capsule 125 mg PO QID 01/12/24
zinc oxide-vitamin B5-vit E 11.3% topical cream 1 applic topical DIRECTED 01/12/24
Review of Systems
-
History Source: Patient
A 12 point ROS was completed and negative except as noted: Yes
Constitutional: Reports No Symptoms
EENT: Reports No Symptoms
Respiratory: Reports No Symptoms
Cardiac: Reports No Symptoms
Abdomen/GI: Reports See HPI
: Reports No Symptoms
Musculoskeletal: Reports No Symptoms
Skin: Reports No Symptoms
Neurological: Reports No Symptoms
Endocrine: Reports No Symptoms
Hematologic/Lymphatic: Reports No Symptoms
Psych: Reports No Symptoms
Physical Exam
Vital Signs
Vital Signs
Temp Pulse Resp BP Pulse Ox
98.0 F 93 17 163/89 100
01/15/24 21:12 01/15/24 23:45 01/15/24 23:45 01/15/24 23:36 01/15/24 23:45
Physical Exam
General: Well Developed, Well Nourished and No Apparent Distress
HEENT: NormoCephalic, Moist mucous membranes and Atraumatic
Respiratory: Clear
Cardiac: S1/S2 and Regular Rhythm; No Murmur or Rub
GI: Soft, Non Distended, Normal Bowel Sounds and Tender (epigastric ); No Organomegaly
Rectal: Deferred by Provider
Musculoskeletal: No Clubbing, No Cyanosis and No Edema
Skin: No Rash
Neuro: Nonfocal/grossly intact
Laboratory Results
-
01/15/24 21:36
01/15/24 21:36
Laboratory Results
Total Bilirubin 0.4 mg/dl (0.2-1.3) 01/15/24 21:36
AST 60 U/L (14-36) H 01/15/24 21:36
ALT 49 U/L (0-35) H 01/15/24 21:36
Alkaline Phosphatase 123 U/L (38-126) 01/15/24 21:36
Lipase 51 U/L (23-300) 01/15/24 21:36
Data Reviewed
-
Lab Data: Labs Reviewed by me
Old Records: Reviewed
Impression/Plan
-
IMPRESSION:
PLAN:
# Epigastric pain likely due to gastritis/esophagitis/GERD from alcohol use/noncompliance with GI meds
# History of esophagitis/peptic ulcer
# History of hiatal hernia
-N.p.o.
-IV fluids
-Ultrasound shows dilated CBD which is chronic
-CT abdomen pelvis pending
-Continue Mylanta
-Continue Protonix twice daily
-Continue Pepcid
-Continue sucralfate
-GI consulted
-Patient likely needs case management eval due to third recent admission due to inability to self-care
# Alcohol withdrawal
-Check alcohol level
-IV fluids
-Alcohol withdrawal protocol
-Continue folic acid, thiamine
# Hypokalemia secondary to vomiting/diarrhea
-Replete potassium
# Non anion gap metabolic acidosis due to diarrhea
#History of diarrhea predominant IBS
-Continue cholestyramine
# Transaminitis secondary to alcohol use
-Continue to monitor
Recent C. difficile antigen positive/toxin negativity status post Dificid
-Continue Dificid
Chronic anemia
-Hemoglobin stable
History of recent suspected gout of right ankle
Essential hypertension
-Continue propranolol
Vitamin D deficiency
History of cholecystectomy chronically dilated CBD
Anxiety/depression
-Continue duloxetine, Ativan
Full code
DVT prophylaxis�SCDs
N.p.o.
[2024-01-16 04:09] LABS: Alcohol 246 mg/dl
[2024-01-16] MEDS: ATIVAN 1 MG IV (06:20)
[2024-01-16] MEDS: NSS 1000 IV (06:32)
[2024-01-16] MEDS: KCL 270 MEQ IV (06:37)
[2024-01-16] MEDS: MAALOX 20 ML PO ×2 (06:45→11:50)
--- NOTE | 2024-01-16 08:07 | CON.GI ---
Addendum entered and electronically signed by Jacquie Alaniz MD 01/17/24 17:04:
I saw and examined the patient.
The TURBINE MECHANIC or PA's note was reviewed and I agree with the note.
Comment: Patient continues to complain of diarrhea.
CT scan abdomen pelvis without contrast showing mild to moderate diffuse thickening of the colon suggesting colitis, small to moderate sized hiatal hernia
-Nausea, vomiting with abdominal pain
Previous history of esophagitis, noncompliant with PPI
Continue PPI IV twice daily
Plan for eventual EGD
-Diarrhea, stool studies negative for infection, C. difficile antigen positive but toxin negative, cultures negative and white cells negative
Currently on Fidomycin for C. difficile antigen positive stool, less likely to be causing diarrhea
Plan for colonoscopy to rule out microscopic colitis
-Dilated common bile duct seen since 2022
MRI/MRCP in August 2023 without any evidence of ductal calculus, pancreas unremarkable
-Alcohol abuse
Reinforced abstinence
Addendum entered and electronically signed by Tashi Rosen MD 01/16/24 11:20:
I saw and examined the patient.
The PA's note was reviewed and I agree with the note.
Comment:
The pt is a 68 year-old female with h/o GERD, hiatal hernia, HTN, alcohol abuse, colitis, LA grade C/D esophagitis, recent admission with suspected C. difficile infection, prior GI bleed secondary to peptic ulcer, IBS, suspected gout, and anxiety
who p/w abdominal pain, nausea/vomiting, and diarrhea.
Impression / Rec:
1. Abdominal pain, nausea/vomiting, diarrhea - multiple readmissions with similar complaints. Patient with alcohol level of 246. Patient noncompliant with her meds, had several EGDs recently which showed LA grade C/D esophagitis but pt admits to
not taking PPIs at home. Pancreatic elastase normal. TSH and celiac negative. All stool studies in the recent past have been negative (C diff Ag +ve but toxin -ve on 01/06, Salmonella/Shiga/Campylo/Crypto -ve on 01/06). Repeat CT abd showed
dilated CBD (chronic), colitis otherwise no other acute pathology. Agree with PPI IV BID, restating questran, also will consider EGD/colonoscopy during her inpt stay given her frequent readmissions.
Original Note:
Consultation
-
Date/Time Consultation Requested: 01/16/24 06
Date/Time Consultation Performed: 01/16/24 0740
Requesting Provider: Dr. Martinez
Performing Provider: Dr. Rosen/NIDHI Child
Reason for Consultation: gastritis
Medical History
Chief Complaint / HPI
Chief Complaint: nausea, vomiting, diarrhea
History of Present Illness:
68-year-old female with a past medical history significant for GERD, hiatal hernia, hypertension, alcohol abuse, colitis, LA grade C/D esophagitis, recent admission with suspected C. difficile infection, prior GI bleed secondary to peptic ulcer,
IBS, suspected gout, anxiety, who presented to the emergency room with complaints of N/V/D as well as chest burning and abdominal pain. The patient was just DC on 01/10/24 with same presentation. Upon review of prior records, the patient had been
previously admitted earlier this month with similar symptoms including nausea, vomiting, and diarrhea. At that time had C. difficile testing which was antigen positive but toxin negative. She was treated with Dificid with no significant
improvement, then placed on oral vancomycin and Questran. She did improve symptomatically during that admission. She was treated again with dificid. She improves with Questran BID. She was DC to home but is never compliant with meds. She either
does not pick them up or if she does she does not take them. She came back to the ER again on 01/10/24 with nausea and vomiting and diarrhea. Although she states that her diarrhea was better. She was given IVF, GI cocktail, Zofran, Ativan and food
trial and was DC to home. She states that she went to home and she did start drinking again, her 'Hot and Spicy Bloody Ivette's with hot pepper flakes this time' and presents with ETOH level of 246. She did not take any of the medication prescribed to
her at home. She states that she started having 'yellow' vomit and 'yellow' diarrhea at home. The vomit burned coming up and is giving her chest a burning sensation. She had approximately 3 episodes of diarrhea at home prior to arrival here in the
ER. She is currently anxious, with epigastric discomfort that is a burning sensation, does not radiate. She has some nausea but no vomiting since earlier. She denies any Fevers, chills, melena, hematochezia, dysphagia or dyne aphasia. She denies
any early satiety or unintentional weight loss. the patient did have a CT performed in the emergency room and results are pending. Last EGD as noted below. WBC 6.7, hemoglobin 11.8, hematocrit 32.5, platelets 357, no coags, sodium 143, potassium
3.1, chloride 109, CO2 18, BUN 15, creatinine 1.1, glucose 108 total bilirubin 0.4, AST 60, ALT 49, alk phos 123, lipase 51, EtOH level 246.
Past Medical History
Past Medical History: GERD (LA grade C/D esophagitis on EGD in 2022, questionable history of peptic ulcer disease with prior GI bleed), Psychiatric (Anxiety, depression) and Other (IBS, suspected gout, history of C. difficile antigen positive,
chronic anemia)
Past Surgical History: Appendectomy, Cholecystectomy and Gynecological (Hysterectomy, right upper extremity epicondylitis x 2)
Social History
Tobacco: Non-Smoker
Alcohol: Daily
Drug: None
Family History
Family History: Reviewed & Not Pertinent
Allergies / Home Medications
Allergy/AdvReac Type Severity Reaction Status Date / Time
aspirin Allergy Unknown Verified 01/15/24 21:18
gabapentin Allergy Unknown Verified 01/15/24 21:18
NSAIDS (Non-Steroidal Allergy Unknown Verified 01/15/24 21:18
Anti-Inflamma
Vlahsol-EWF-CyS Reductase Allergy Swelling Verified 01/15/24 21:18
Inhibitor
Sulfa (Sulfonamide Allergy Unknown Verified 01/15/24 21:18
Antibiotics)
�Medication �Instructions �Recorded
esomeprazole magnesium 20 mg 20 mg PO BID Gastrointestinal Issue 12/22/23
capsule,delayed release (Nexium)
cholecalciferol (vitamin D3) 125 125 mcg PO DAILY #30 tabs 12/26/23
mcg (5,000 unit) tablet
duloxetine 20 mg capsule,delayed 20 mg PO DAILY #30 caps 12/26/23
release
folic acid 1 mg tablet 1 mg PO DAILY #30 tabs 12/26/23
sucralfate 1 gram tablet 1 g PO ACHS #120 tabs 12/26/23
thiamine HCl (vitamin B1) 100 mg 100 mg PO DAILY #30 tabs 12/26/23
tablet
cholestyramine-aspartame 4 gram 1 ea PO DAILY #60 ea 12/30/23
oral powder for susp in a packet
(Cholestyramine Light)
Saccharomyces boulardii 250 mg 250 mg PO BID 30 days #60 caps 01/10/24
capsule
fidaxomicin 200 mg tablet (Dificid) 200 mg PO BID 5 days #10 tabs 01/10/24
pantoprazole 40 mg tablet,delayed 40 mg PO BID 30 days #60 tabs 01/10/24
release
aluminum-mag hydroxide-simethicone 10 - 20 ml PO ACHS PRN heartburn 01/12/24
200 mg-200 mg-20 mg/5 mL oral susp
famotidine 40 mg tablet 40 mg PO HS 01/12/24
lorazepam 0.5 mg tablet 0.5 mg PO HS 01/12/24
nitroglycerin 0.4 mg sublingual 0.4 mg sublingual [id number] PRN 01/12/24
tablet chest pain
ondansetron HCl 4 mg tablet 4 mg PO Q8H PRN nausea and 01/12/24
vomiting 5 days #14 tabs
prochlorperazine maleate 10 mg 10 mg PO DAILYPRN PRN migraine 01/12/24
tablet
propranolol 10 mg tablet 10 mg PO BID 01/12/24
simethicone 250 mg capsule (Gas 250 mg PO DIRECTED 01/12/24
Relief (simethicone))
sumatriptan succinate 50 mg tablet 0 mg PO .COMPLEX 01/12/24
vancomycin 125 mg capsule 125 mg PO QID 01/12/24
zinc oxide-vitamin B5-vit E 11.3% 1 applic topical DIRECTED 01/12/24
topical cream
Review of Systems
-
All other systems: A 12 pt ROS was Negative except as stated above in HPI
Vital Signs
Temp Pulse Resp BP Pulse Ox
98.0 F 89 23 149/75 99
01/15/24 21:12 01/16/24 07:00 01/16/24 07:00 01/16/24 07:00 01/16/24 06:16
Physical Exam
Exam
General: Well Nourished
HEENT: Anicteric
Respiratory: Clear
Cardiac: Regular Rhythm
GI: Soft, Non Distended, Normal Bowel Sounds and Tender (epigastric)
Musculoskeletal: No Edema
Skin: Warm and Dry
Neuro: AO x 3
Psych: Other (anxious)
Results
WBC 6.7 10^3/uL (4.8-10.8) 01/15/24 21:36
Hgb 11.8 g/dL (12.0-16.0) L 01/15/24 21:36
Hct 32.5 % (37.0-47.0) L 01/15/24 21:36
MCV 91.0 fL (81.0-99.0) 01/15/24 21:36
Plt Count 357 10^3/uL (130-400) D 01/15/24 21:36
Absolute Neuts (auto) 2.2 10^3/uL (1.4-6.5) 01/15/24 21:36
Sodium 143 mmol/L (135-145) 01/15/24 21:36
Potassium 3.1 mmol/L (3.5-5.1) L 01/15/24 21:36
Chloride 109 mmol/L (98-107) H 01/15/24 21:36
Carbon Dioxide 18 mmol/L (22-30) L 01/15/24 21:36
BUN 15 mg/dl (7-17) 01/15/24 21:36
Creatinine 1.1 mg/dL (0.6-1.0) H 01/15/24 21:36
Calcium 8.5 mg/dl (8.4-10.2) 01/15/24 21:36
Total Bilirubin 0.4 mg/dl (0.2-1.3) 01/15/24 21:36
AST 60 U/L (14-36) H 01/15/24 21:36
ALT 49 U/L (0-35) H 01/15/24 21:36
Alkaline Phosphatase 123 U/L (38-126) 01/15/24 21:36
Lipase 51 U/L (23-300) 01/15/24 21:36
Diagnostic Image Results:
Prior GI Procedures:
EGD
06/11/23, Dr. Warner
�� � � � � � � � - LA Grade C reflux esophagitis with no bleeding.
�� � � � � � � � � � � - Normal stomach.
�� � � � � � � � � � � - Normal examined duodenum.
EGD
03/15/23, Dr. Rosen
� � � � � � � � - LA Grade D reflux esophagitis. Slight improvement
�� � � � � � � � � � � from previous exam.
�� � � � � � � � � � � - Medium-sized hiatal hernia.
�� � � � � � � � � � � - No gross lesions in the entire stomach.
�� � � � � � � � � � � - Normal duodenal bulb, first portion of the duodenum
�� � � � � � � � � � � and second portion of the duodenum.
EGD
12/17/22, Dr. Rosen� � � � �
� � � � � � � � - LA Grade D esophagitis. Circumferential superficial
�� � � � � � � � � � � ulcers in distal esophagus.
�� � � � � � � � � � � - Medium-sized hiatal hernia.
Colonoscopy:� 5-10 years ago at [facility] per pt, unknown results
Assessment / Plan
-
68-year-old female with a past medical history significant for GERD, hiatal hernia, hypertension, alcohol abuse, colitis, LA grade C/D esophagitis, recent admission with suspected C. difficile infection, prior GI bleed secondary to peptic ulcer,
IBS, suspected gout, anxiety, who presented to the emergency room with complaints of N/V/D as well as chest burning and abdominal pain. Patient with alcohol level of 246. Patient noncompliant with medications that she is required to have in order
to stop her chronic diarrhea. Also on chronic PPI therapy to treat her history of esophagitis. Pancreatic elastase normal. Fecal calpro pending. TSH and celiac negative. All other stool studies in the past have been negative.
Problem list:
-N/V
-Epigastric burning
-Recurrent diarrhea, prior C difficile showing Ag pos but toxin neg treated with Vanco, Dificid in past. Patient responds to Questran BID non complaint.
-History of alcohol abuse, current ETOG level 246
-GERD
-CT imaging showing a 1.2 cm renal lesion, fatty liver, small hiatal hernia, mild interstitial edema, diverticulosis
-Recent admission with pancolitis on CT imaging
-Mildly elevated LFTs
Other pertinent medical history:
-Hypertension
-Hiatal hernia
-Anxiety/depression
-IBS
-Suspected gout
Recommendations:
-Await CT Abd/Pelvis
-NPO except meds
-Continue IVF
-Electrolyte correction per IM
-Antiemetics
-ETOH withdrawal ppx
-recent treatment for C-diff ag + tox neg with dificid (no need for continued tx). Continue probiotic.
-Patient should have o/p colonoscopy with bx to excluding underlying IBD (prior CT with pancolitis ), microscopic colitis (pt has been on Duloxetine and PPI which can trigger microscopic colitis )
-Questran 4gm, increase to BID, patient hx of CCY and this has resolved her diarrhea in the past.
-consider Xifaxan trial if not improved on Questran.
-continue Pantoprazole 40 mg IV twice daily and Carafate ACHS with hx esophagitis. Patient also placed on Pepcid 40 mg po hs by IM.
-Trend labs
-To consider gastric emptying study given her recurrent symptoms and significant esophagitis as she admits to early satiety and bloating symptoms in the past. This was to be planned as an outpatient on prior admission.
-Patient will need repeat EGD to check for healing with hx esophagitis.
-ETOH abstinence. Discussed with patient at length. She is currently living on a couch in an elderly woman's home. (Keira, who the patient states is in her 80's) The home production drilling machine operator does not drink and the patient purchases for herself. Social Service
consultation should be obtained to see if patient can obtain some help as she has multiple readmissions, non compliance with meds. She does have a daughter who lives in [place].
Data Reviewed
-
Old Records: Reviewed
-
-
Thank you for consultation and allowing me to participate in the patient's care. Please call the packer insulation GI physician during the after hours with any questions or concerns.
[2024-01-16] MEDS: NSS (PRESERVATIVE FREE) 10 ML IV ×2 (08:50→20:03)
[2024-01-16] MEDS: THIAMINE INJECTION 200 MG IV ×2 (08:50→20:04)
[2024-01-16] MEDS: PROTONIX IV 40 MG IV ×2 (08:50→20:03)
[2024-01-16] MEDS: CARAFATE 1 GRAM PO ×4 (08:51→21:14)
[2024-01-16] MEDS: HEPARIN 5000 UNITS SC ×2 (08:51→20:04)
[2024-01-16] MEDS: FOLVITE 1 MG PO (08:51)
[2024-01-16] MEDS: VITAMIN B1 PO (08:52)
[2024-01-16] MEDS: INDERAL 10 MG PO ×2 (09:47→20:29)
[2024-01-16] MEDS: DIFICID 200 MG PO ×2 (09:47→20:20)
[2024-01-16] MEDS: VITAMIN D3 (cholecalciferol) 125 MCG PO (09:47)
[2024-01-16] MEDS: CYMBALTA DELAYED RELEASE 20 MG PO (09:47)
[2024-01-16] MEDS: FLORASTOR 250 MG PO ×2 (09:47→20:20)
[2024-01-16] MEDS: QUESTRAN LIGHT/PREVALITE 4 GRAMS PO (09:48)
--- NOTE | 2024-01-16 10:16 | W.PN.HOSP.TC ---
Today's Communication/Plan
-
See plan
Assessment / Plan
Assessment / Plan
Impression:
Persistent epigastric pain with differential alcohol induced gastritis/esophagitis/GERD.
Hiatal hernia
Chronic diarrhea with colitis by imaging.
Transaminitis
Alcohol use disorder with risk for withdrawal.
Alcohol intoxication on presentation with level of 246
Hypokalemia
Normal anion gap metabolic acidosis
Other conditions:
Anemia of chronic disease
Essential hypertension
History of cholecystectomy with chronically dilated CBD.
Anxiety/depression.
Plan:
Presentation with severe epigastric pain mostly at the right upper quadrant.
EGD 06/15 with reflux esophagitis, normal stomach, normal duodenum.
Patient has not been compliant with home medications including PPI
Exam relatively benign with no acute or new symptoms
Normal white count
Mild elevation of transaminases with normal bilirubin
CT scan of the abdomen and pelvis with chronic CBD dilation of unknown significance
Lipase normal
Suspect acute on chronic gastritis
N.p.o. after
IV fluids.
IV PPI.
Chronic diarrhea.
Last colonoscopy 5 to 10 years ago at [facility] with unknown results.
CT scan with persistent colitis
Recent workup negative for infectious causes.
C. difficile antigen positive toxin negative, empirically initiated on Dificid could not complete total of 10 days therapy due to noncompliance.
Stool pancreatic elastase within normal limits not confirming pancreatic deficiency.
Stool calprotectin pending.
? Microscopic colitis one of the differential.
Monitor intensity of diarrhea while n.p.o. monitor
Questran.
Complete Dificid course.
Eventually will be initiated from colonoscopy.
Alcohol use disorder
Alcohol level on presentation 246
Continue alcohol withdrawal protocol with lorazepam.
Mild transaminitis likely due to alcohol.
Status postcholecystectomy.
CT scan of the abdomen and pelvis confirming chronic CBD dilation.
Follow LFTs.
Normal gap metabolic acidosis
Hypokalemia.
Continue IV fluids, replete potassium, follow BMP
Chronic anemia
-Hemoglobin stable
History of recent suspected gout of right ankle
Essential hypertension
-Continue propranolol
Vitamin D deficiency
History of cholecystectomy chronically dilated CBD
Anxiety/depression
-Continue duloxetine, Ativan
Anticipated Discharge: > 48 hours
Subjective/Interval History
-
Date of Service: January 16, 2024
Objective Data
-
Vital Signs:
Vital Signs
Temp Pulse Resp BP Pulse Ox
98.1 F 95 23 166/102 99
01/16/24 08:39 01/16/24 09:47 01/16/24 08:39 01/16/24 09:47 01/16/24 08:39
Physical Exam
-
General: Well Developed and No Apparent Distress
HEENT: Normocephalic, Atraumatic and Moist Mucous Membranes
Respiratory: Clear to Auscultation
Cardiac: Regular Rhythm and S1/S2; Negative Murmur, Rub or Gallop
GI: Soft, Nontender, Nondistended and Normal Bowel Sounds; Negative Organomegaly
Rectal: Deferred by Provider
Musculoskeletal: No Clubbing, No Cyanosis and No Edema
Skin: Negative Rash
Neuro: Nonfocal/Grossly Intact
[2024-01-16] MEDS: MORPHINE SULFATE 2 MG IV ×3 (10:49→20:01)
--- NOTE | 2024-01-16 11:20 | W.PN.UPDATE ---
Update Note
Progress Note Update
billing note
[2024-01-16] MEDS: D5/0.45%NSS with KCL 20 MEQ 1000 IV ×2 (13:22→23:39)
[2024-01-16] MEDS: PEPCID 40 MG PO (21:16)
[2024-01-16] MEDS: ATIVAN 1 MG PO (22:04)
[2024-01-17] MEDS: COMPAZINE 10 MG PO (05:00)
[2024-01-17] MEDS: MORPHINE SULFATE 2 MG IV ×4 (05:01→20:32)
[2024-01-17 07:30] VITALS: BP 119/78
[2024-01-17 07:32] LABS: Hematocrit 31.2 % (37.0-47.0); Hemoglobin 11.1 g/dL (12.0-16.0); Mean Corp Hgb Conc. 35.6 g/dL (33.0-37.0); Mean Corpuscular Hgb 33.3 pg (27.0-31.0); Mean Corpuscular Volume 93.7 fL (81.0-99.0); Mean Platelet Volume 9.6 fL (7.4-10.4); Platelet Count 271 10^3/uL (130-400); Red Blood Cell Count 3.33 10^6/uL (4.20-5.40); Red Cell Dist. Width 14.6 % (11.5-14.5)
[2024-01-17 08:05] LABS: ALT (SGPT) 33 U/L (0-35); AST (SGOT) 51 U/L (14-36); Albumin 3.6 g/dl (3.5-5.0); Alkaline Phosphatase 121 U/L (38-126); Blood Urea Nitrogen 4 mg/dl (7-17); Calcium 7.9 mg/dl (8.4-10.2); Carbon Dioxide 22 mmol/L (22-30); Chloride 105 mmol/L (98-107); Estimated Creatinine Clearance 52 ml/min; Glucose 128 mg/dl (70-99); Potassium 3.7 mmol/L (3.5-5.1); Sodium 136 mmol/L (135-145); Total Bilirubin 1.5 mg/dl (0.2-1.3); Total Protein 6.1 g/dl (6.3-8.2); eGFR > 60.00
--- NOTE | 2024-01-17 08:21 | W.PN.GI.CBS2 ---
Addendum entered and electronically signed by Jacquie Alaniz MD 01/18/24 11:49:
I saw and examined the patient.
The CALL CENTER CONSULTANT or PA's note was reviewed and I agree with the note.
Comment: Patient seen 01/17/24, my addendum note saved.
Patient reports 1 episode of loose watery stool with incontinence, also reports some nausea episodes.
No hematemesis or melena.
-Nausea/vomiting with history of esophagitis in the past
Continue PPI/Carafate for now
Plan is for upper endoscopy on Saturday
-Diarrhea of unclear etiology, stool studies negative
C. difficile antigen positive but toxin negative, unlikely to be active C. difficile infection
Currently on a course of Dificid
Plan for colonoscopy Saturday
-Chronic dilation of bile ducts, MRI/MRCP August 2023 without any evidence of choledocholithiasis or pancreatic lesions.
Original Note:
Today's Communication / Plan
-
Fractionate bili, repeat LFTs in am. Start clears, continue current meds.
Assessment / Plan
-
68-year-old female with a past medical history significant for GERD, hiatal hernia, hypertension, alcohol abuse, colitis, LA grade C/D esophagitis, recent admission with suspected C. difficile infection, prior GI bleed secondary to peptic ulcer,
IBS, suspected gout, anxiety, who presented to the emergency room with complaints of N/V/D as well as chest burning and abdominal pain. Patient with alcohol level of 246. Patient noncompliant with medications that she is required to have in order
to stop her chronic diarrhea. Also on chronic PPI therapy to treat her history of esophagitis. Pancreatic elastase normal. Fecal calpro pending. TSH and celiac negative. All other stool studies in the past have been negative.
Problem list:
-N/V
-Epigastric burning
-Recurrent diarrhea, prior C difficile showing Ag pos but toxin neg treated with Vanco, Dificid in past. Patient responds to Questran BID non complaint.
-History of alcohol abuse, current ETOG level 246
-GERD
-CT imaging showing a 1.2 cm renal lesion, fatty liver, small hiatal hernia, mild interstitial edema, diverticulosis
-Recent admission with pancolitis on CT imaging
-Mildly elevated LFTs, now with elevated total bilirubin.
-History of chronically dilated common bile duct, status postcholecystectomy, MRCP in August 2023
Other pertinent medical history:
-Hypertension
-Hiatal hernia
-Anxiety/depression
-IBS
-Suspected gout
Recommendations:
-Start clear liquid diet
-Fractionate bilirubin
-Repeat LFTs tomorrow
-Patient with chronically dilated common bile duct in the setting of cholecystectomy and prior MRCP in August 2023 that was without any signs of choledocholithiasis. If with pain or signs of obstruction would consider repeat MRCP.
-Antiemetics as needed
-ETOH withdrawal ppx
-recent treatment for C-diff ag + tox neg with dificid (no need for continued tx). Continue probiotic.
-Patient should have o/p colonoscopy with bx to excluding underlying IBD (prior CT with pancolitis ), microscopic colitis (pt has been on Duloxetine and PPI which can trigger microscopic colitis )
-Questran 4gm twice daily patient hx of CCY and this has resolved her diarrhea in the past. Patient currently without any diarrhea while on this regimen.
-consider Xifaxan trial if not improved on Questran.
-continue Pantoprazole 40 mg IV twice daily and Carafate ACHS with hx esophagitis. Patient also placed on Pepcid 40 mg po hs by IM.
-To consider gastric emptying study given her recurrent symptoms and significant esophagitis as she admits to early satiety and bloating symptoms in the past. This was to be planned as an outpatient on prior admission.
-Patient will need repeat EGD to check for healing with hx esophagitis. This needs to be decided whether this will be performed as an inpatient or an outpatient. Likely if performed as an inpatient we will show nonhealing of esophagitis that is
always been present given noncompliance of medications and continuation of alcohol use.
-ETOH abstinence. Discussed with patient at length. She is currently living on a couch in an elderly woman's home. (Keira, who the patient states is in her 80's) The home ict help desk technician does not drink and the patient purchases for herself. Social Service
consultation should be obtained to see if patient can obtain some help as she has multiple readmissions, non compliance with meds. She does have a daughter who lives in [place].
-Will discuss with medicine attending about patient's right groin pain and tingling of her feet.
Subjective
Subjective
Date of Service: January 17, 2024
Patient without any further vomiting or bowel movements since yesterday. She states she did have some mild nausea that has resolved. She states she still has epigastric burning however this is improved. She also has pain in the right groin and
tingling in her feet. She states that she is hungry and she would like something to eat at this point.
Objective
Data Reviewed
Laboratory Data:
Laboratory Results
01/17/24 07:22
01/17/24 07:22
Laboratory Results
Total Bilirubin 1.5 mg/dl (0.2-1.3) H D 01/17/24 07:22
AST 51 U/L (14-36) H 01/17/24 07:22
ALT 33 U/L (0-35) 01/17/24 07:22
Alkaline Phosphatase 121 U/L (38-126) 01/17/24 07:22
Lipase 51 U/L (23-300) 01/15/24 21:36
Vital Signs and I&O:
Vital Signs
Temp Pulse Resp BP Pulse Ox
98.2 F 76 17 149/95 97
01/16/24 23:07 01/16/24 23:07 01/16/24 23:07 01/16/24 23:07 01/16/24 23:07
I&O
01/16/24 01/17/2401/17/24
06:59 06:59 06:59
Intake Total 0 / 0
Balance 0 / 0
Physical Exam
Physical Exam
HEENT: Anicteric
Cardiology: Normal Sinus Rhythm
Pulmonary: Clear
GI: Soft, Non Distended, Tender (Mild epigastric tenderness) and Normal Bowel Sounds
Extremities: No Edema
Neuro: Non Focal and Other (No asterixis)
[2024-01-17] MEDS: D5/0.45%NSS with KCL 20 MEQ 1000 IV ×2 (08:26→17:31)
[2024-01-17] MEDS: NSS (PRESERVATIVE FREE) 10 ML IV ×2 (08:27→20:31)
[2024-01-17] MEDS: CARAFATE 1 GRAM PO ×4 (08:27→20:31)
[2024-01-17] MEDS: THIAMINE INJECTION 200 MG IV ×2 (08:28→20:32)
[2024-01-17] MEDS: FLORASTOR 250 MG PO ×2 (08:29→20:31)
[2024-01-17] MEDS: DIFICID 200 MG PO ×2 (08:31→20:31)
[2024-01-17] MEDS: VITAMIN B1 100 MG PO (08:31)
[2024-01-17] MEDS: PROTONIX IV 40 MG IV ×2 (08:32→20:31)
[2024-01-17] MEDS: INDERAL 10 MG PO ×2 (08:33→20:31)
[2024-01-17] MEDS: HEPARIN 5000 UNITS SC ×2 (08:35→20:32)
[2024-01-17] MEDS: VITAMIN D3 (cholecalciferol) 125 MCG PO (08:36)
[2024-01-17] MEDS: CYMBALTA DELAYED RELEASE 20 MG PO (08:36)
[2024-01-17] MEDS: FOLVITE 1 MG PO (08:39)
[2024-01-17 09:26] LABS: Direct Bilirubin 0.4 mg/dl (0.0-0.4)
[2024-01-17] MEDS: QUESTRAN LIGHT/PREVALITE 4 GRAMS PO (10:19)
[2024-01-17 15:20] VITALS: BP 147/92
--- NOTE | 2024-01-17 15:32 | W.PN.HOSP.TC ---
Today's Communication/Plan
-
PPI.
Questran
Clear liquid diet
Assessment / Plan
Assessment / Plan
Impression:
Persistent epigastric pain with differential alcohol induced gastritis/esophagitis/GERD.
Hiatal hernia
Chronic diarrhea with colitis by imaging.
Transaminitis
Alcohol use disorder with risk for withdrawal.
Alcohol intoxication on presentation with level of 246
Hypokalemia
Normal anion gap metabolic acidosis
Other conditions:
Anemia of chronic disease
Essential hypertension
History of cholecystectomy with chronically dilated CBD.
Anxiety/depression.
Plan:
Presentation with severe epigastric pain mostly at the right upper quadrant.
EGD 06/15 with reflux esophagitis, normal stomach, normal duodenum.
Patient has not been compliant with home medications including PPI
Exam relatively benign with no acute or new symptoms
Normal white count
Mild elevation of transaminases with normal bilirubin
CT scan of the abdomen and pelvis with chronic CBD dilation of unknown significance
Mild hyperbilirubinemia predominantly indirect
Lipase normal
Suspect acute on chronic gastritis
With overall symptomatic improvement advance to clear liquid diet
IV fluids.
IV PPI.
Chronic diarrhea.
Last colonoscopy 5 to 10 years ago at [facility] with unknown results.
CT scan with persistent colitis
Recent workup negative for infectious causes.
C. difficile antigen positive toxin negative, empirically initiated on Dificid could not complete total of 10 days therapy due to noncompliance.
Stool pancreatic elastase within normal limits not confirming pancreatic deficiency.
Stool calprotectin pending.
? Microscopic colitis one of the differential.
Monitor intensity of diarrhea while n.p.o. monitor
Questran.
Complete Dificid course for additional 4-5 days
Eventually will be initiated from colonoscopy.
Alcohol use disorder
Alcohol level on presentation 246
Continue alcohol withdrawal protocol with lorazepam.
Mild transaminitis likely due to alcohol.
Status postcholecystectomy.
CT scan of the abdomen and pelvis confirming chronic CBD dilation.
Follow LFTs.
Normal gap metabolic acidosis
Hypokalemia.
Continue IV fluids, replete potassium, follow BMP
Chronic anemia
-Hemoglobin stable
History of recent suspected gout of right ankle
Essential hypertension
-Continue propranolol
Vitamin D deficiency
History of cholecystectomy chronically dilated CBD
Anxiety/depression
-Continue duloxetine, Ativan
Anticipated Discharge: 24 - 48 hours
Subjective/Interval History
-
Date of Service: January 17, 2024
Objective Data
-
Labs:
Laboratory Results
01/17/24
07:22
WBC 5.0
Hgb 11.1 L
Hct 31.2 L
Plt Count 271 D
Sodium 136
Potassium 3.7
Chloride 105
Carbon Dioxide 22
BUN 4 L
Creatinine 0.9
Glucose 128 H
Calcium 7.9 L
Total Bilirubin 1.5 H D
AST 51 H
ALT 33
Alkaline Phosphatase 121
Vital Signs:
Vital Signs
Temp Pulse Resp BP Pulse Ox
98.1 F 82 20 147/92 100
01/17/24 15:20 01/17/24 15:20 01/17/24 15:20 01/17/24 15:20 01/17/24 15:20
I&O
01/16/24 01/17/24 01/18/24
06:59 06:59 06:59
Intake Total 0 / 0
Balance 0 / 0
Physical Exam
-
General: Well Developed and No Apparent Distress
HEENT: Normocephalic, Atraumatic and Moist Mucous Membranes
Respiratory: Clear to Auscultation
Cardiac: Regular Rhythm and S1/S2; Negative Murmur, Rub or Gallop
GI: Soft, Nontender, Nondistended and Normal Bowel Sounds; Negative Organomegaly
Rectal: Deferred by Provider
Musculoskeletal: No Clubbing, No Cyanosis and No Edema
Skin: Negative Rash
Neuro: Nonfocal/Grossly Intact
[2024-01-17 16:45] VITALS: BP 122/72
[2024-01-17] MEDS: PEPCID 40 MG PO (20:32)
[2024-01-17] MEDS: ATIVAN 1 MG PO (22:27)
[2024-01-17 23:32] VITALS: BP 153/70
[2024-01-18] MEDS: MORPHINE SULFATE 2 MG IV ×4 (05:13→20:09)
[2024-01-18] MEDS: ZOFRAN 4 MG IV (05:14)
[2024-01-18 07:20] VITALS: BP 151/88
--- NOTE | 2024-01-18 08:30 | W.PN.GI.CBS2 ---
Today's Communication / Plan
-
-Diarrhea seems to have improved, okay to advance to low residue diet
Plan for colonoscopy Saturday given recurrent episodes of diarrhea
-Nausea/vomiting with history of esophagitis
Continue PPI IV twice daily
Plan for EGD Saturday.
-Dilated common duct, previous MRI and MRCP without any choledocholithiasis or pancreatic lesions
Elevated LFTs, mainly indirect bilirubin
Will follow
Assessment / Plan
-
68-year-old female with a past medical history significant for GERD, hiatal hernia, hypertension, alcohol abuse, colitis, LA grade C/D esophagitis, recent admission with suspected C. difficile infection, prior GI bleed secondary to peptic ulcer,
IBS, suspected gout, anxiety, who presented to the emergency room with complaints of N/V/D as well as chest burning and abdominal pain. Patient with alcohol level of 246. Patient noncompliant with medications that she is required to have in order
to stop her chronic diarrhea. Also on chronic PPI therapy to treat her history of esophagitis. Pancreatic elastase normal. Fecal calpro pending. TSH and celiac negative. All other stool studies in the past have been negative.
Problem list:
-N/V
-Epigastric burning
-Recurrent diarrhea, prior C difficile showing Ag pos but toxin neg treated with Vanco, Dificid in past. Patient responds to Questran BID non complaint.
-History of alcohol abuse, current ETOG level 246
-GERD
-CT imaging showing a 1.2 cm renal lesion, fatty liver, small hiatal hernia, mild interstitial edema, diverticulosis
-Recent admission with pancolitis on CT imaging
-Mildly elevated LFTs, now with elevated total bilirubin.
-History of chronically dilated common bile duct, status postcholecystectomy, MRCP in August 2023
Other pertinent medical history:
-Hypertension
-Hiatal hernia
-Anxiety/depression
-IBS
-Suspected gout
Recommendations:
-Diarrhea seems to have improved, okay to advance to low residue diet
Plan for colonoscopy Saturday given recurrent episodes of diarrhea
-Nausea/vomiting with history of esophagitis
Continue PPI IV twice daily
Plan for EGD Saturday.
-Dilated common duct, previous MRI and MRCP without any choledocholithiasis or pancreatic lesions
Elevated LFTs, mainly indirect bilirubin
Will follow
-Patient with chronically dilated common bile duct in the setting of cholecystectomy and prior MRCP in August 2023 that was without any signs of choledocholithiasis. If with pain or signs of obstruction would consider repeat MRCP.
-Antiemetics as needed
-ETOH withdrawal ppx
-recent treatment for C-diff ag + tox neg with dificid (no need for continued tx). Continue probiotic.
-Patient should have o/p colonoscopy with bx to excluding underlying IBD (prior CT with pancolitis ), microscopic colitis (pt has been on Duloxetine and PPI which can trigger microscopic colitis )
-consider Xifaxan trial if not improved on Questran.
-continue Pantoprazole 40 mg IV twice daily and Carafate ACHS with hx esophagitis. Patient also placed on Pepcid 40 mg po hs by IM.
-To consider gastric emptying study given her recurrent symptoms and significant esophagitis as she admits to early satiety and bloating symptoms in the past. This was to be planned as an outpatient on prior admission.
-Patient will need repeat EGD to check for healing with hx esophagitis. This needs to be decided whether this will be performed as an inpatient or an outpatient. Likely if performed as an inpatient we will show nonhealing of esophagitis that is
always been present given noncompliance of medications and continuation of alcohol use.
-ETOH abstinence. Discussed with patient at length. She is currently living on a couch in an elderly woman's home. (Keira, who the patient states is in her 80's) The home intermodal owner operator truck driver does not drink and the patient purchases for herself. Social Service
consultation should be obtained to see if patient can obtain some help as she has multiple readmissions, non compliance with meds. She does have a daughter who lives in [place].
Subjective
Subjective
Date of Service: January 18, 2024
Patient with some nausea, right-sided discomfort on twisting of her abdomen. No further diarrhea since yesterday's episode of loose stool.
Objective
Data Reviewed
Laboratory Data:
Laboratory Results
Total Bilirubin 1.5 mg/dl (0.2-1.3) H D 01/17/24 07:22
AST 51 U/L (14-36) H 01/17/24 07:22
ALT 33 U/L (0-35) 01/17/24 07:22
Alkaline Phosphatase 121 U/L (38-126) 01/17/24 07:22
Lipase 51 U/L (23-300) 01/15/24 21:36
Vital Signs and I&O:
Vital Signs
Temp Pulse Resp BP Pulse Ox
98.1 F 67 17 153/70 99
01/17/24 23:32 01/17/24 23:32 01/17/24 23:32 01/17/24 23:32 01/17/24 23:32
I&O
01/17/24 01/18/24 01/19/24
06:59 06:59 06:59
Intake Total 0 / 0 480 / 480
Balance 0 / 0 480 / 480
Physical Exam
Physical Exam
GI: Soft, Non Distended and Non Tender
[2024-01-18 08:48] LABS: % Basophils 1.1 % (0-2); % Eosinophils 8.2 % (0-6); % Immature Granulocytes 0.2 % (0-0.5); % Lymphocytes 30.7 % (20.5-51.1); % Monocytes 10.5 % (1.7-9.3); % Neutrophils 49.3 % (42.2-75.2); Absolute Basophils 0.1 10^3/uL (0-0.2); Absolute Eosinophils 0.5 10^3/uL (0-0.7); Absolute Lymphocytes 1.7 10^3/uL (1.2-3.4); Absolute Monocytes 0.6 10^3/uL (0.1-0.6); Absolute Neutrophils 2.7 10^3/uL (1.4-6.5); Hematocrit 31.6 % (37.0-47.0); Hemoglobin 10.6 g/dL (12.0-16.0); Mean Corp Hgb Conc. 33.5 g/dL (33.0-37.0); Mean Corpuscular Hgb 32.6 pg (27.0-31.0); Mean Corpuscular Volume 97.2 fL (81.0-99.0); Nucleated Red Blood Cells % 0 %; Platelet Count 292 10^3/uL (130-400); Red Blood Cell Count 3.25 10^6/uL (4.20-5.40); Red Cell Dist. Width 14.3 % (11.5-14.5); White Blood Cell Count 5.5 10^3/uL (4.8-10.8)
[2024-01-18 08:56] LABS: INR 1.02; PT 13.2 Sec (11.4-14.6)
[2024-01-18] MEDS: INDERAL 10 MG PO ×2 (08:59→20:08)
[2024-01-18] MEDS: DIFICID 200 MG PO ×2 (08:59→20:08)
[2024-01-18] MEDS: FLORASTOR 250 MG PO ×2 (08:59→20:08)
[2024-01-18] MEDS: CYMBALTA DELAYED RELEASE 20 MG PO (08:59)
[2024-01-18] MEDS: HEPARIN 5000 UNITS SC ×2 (09:00→20:08)
[2024-01-18] MEDS: CARAFATE 1 GRAM PO ×4 (09:00→20:07)
[2024-01-18] MEDS: VITAMIN D3 (cholecalciferol) 125 MCG PO (09:00)
[2024-01-18] MEDS: PROTONIX IV 40 MG IV ×2 (09:00→20:09)
[2024-01-18] MEDS: THIAMINE INJECTION 200 MG IV ×2 (09:00→20:09)
[2024-01-18] MEDS: FOLVITE 1 MG PO (09:01)
[2024-01-18] MEDS: NSS (PRESERVATIVE FREE) 10 ML IV ×2 (09:01→20:09)
[2024-01-18 09:24] LABS: ALT (SGPT) 36 U/L (0-35); AST (SGOT) 57 U/L (14-36); Albumin 3.8 g/dl (3.5-5.0); Alkaline Phosphatase 117 U/L (38-126); Blood Urea Nitrogen 3 mg/dl (7-17); Calcium 8.5 mg/dl (8.4-10.2); Carbon Dioxide 21 mmol/L (22-30); Chloride 109 mmol/L (98-107); Direct Bilirubin 0.3 mg/dl (0.0-0.4); Estimated Creatinine Clearance 47 ml/min; Glucose 96 mg/dl (70-99); Potassium 4.6 mmol/L (3.5-5.1); Sodium 136 mmol/L (135-145); Total Bilirubin 0.9 mg/dl (0.2-1.3); Total Protein 6.3 g/dl (6.3-8.2); eGFR > 60.00
[2024-01-18] MEDS: QUESTRAN LIGHT/PREVALITE 4 GRAMS PO (10:08)
--- NOTE | 2024-01-18 10:33 | W.PN.HOSP.TC ---
Today's Communication/Plan
-
advance diet today
back on clears tomorrow
scopes Saturday
Assessment / Plan
Assessment / Plan
Impression:
Persistent epigastric pain with differential alcohol induced gastritis/esophagitis/GERD.
Hiatal hernia
Chronic diarrhea with colitis by imaging.
Transaminitis
Alcohol use disorder with risk for withdrawal--no evidence of WD currently
Alcohol intoxication on presentation with level of 246
Hypokalemia
Normal anion gap metabolic acidosis
Other conditions:
Anemia of chronic disease
Essential hypertension
History of cholecystectomy with chronically dilated CBD.
Anxiety/depression.
Plan:
01/18/24 -- advance diet to low residue for today--back on clears tomorrow and prep for scopes Saturday
Presentation with severe epigastric pain mostly at the right upper quadrant.
EGD 06/15 with reflux esophagitis, normal stomach, normal duodenum.
Patient has not been compliant with home medications including PPI
Exam relatively benign with no acute or new symptoms
Normal white count
Mild elevation of transaminases with normal bilirubin
CT scan of the abdomen and pelvis with chronic CBD dilation of unknown significance
Mild hyperbilirubinemia predominantly indirect
Lipase normal
Suspect acute on chronic gastritis
With overall symptomatic improvement advance to clear liquid diet
IV fluids.
IV PPI.
Chronic diarrhea.
Last colonoscopy 5 to 10 years ago at [facility] with unknown results.
CT scan with persistent colitis
Recent workup negative for infectious causes.
C. difficile antigen positive toxin negative, empirically initiated on Dificid could not complete total of 10 days therapy due to noncompliance.
Stool pancreatic elastase within normal limits not confirming pancreatic deficiency.
Stool calprotectin pending.
? Microscopic colitis one of the differential.
Monitor intensity of diarrhea while n.p.o. monitor
Questran.
Complete Dificid course for additional 4-5 days
Eventually will be initiated from colonoscopy.
Alcohol use disorder
Alcohol level on presentation 246
Continue alcohol withdrawal protocol with lorazepam.
Mild transaminitis likely due to alcohol.
Status postcholecystectomy.
CT scan of the abdomen and pelvis confirming chronic CBD dilation.
Follow LFTs.
Normal gap metabolic acidosis
Hypokalemia.
Continue IV fluids, replete potassium, follow BMP
Chronic anemia
-Hemoglobin stable
History of recent suspected gout of right ankle
Essential hypertension
-Continue propranolol
Vitamin D deficiency
History of cholecystectomy chronically dilated CBD
Anxiety/depression
-Continue duloxetine, Ativan
Anticipated Discharge: > 48 hours
Subjective/Interval History
-
Date of Service: January 18, 2024
pt hungry--will advance diet
Objective Data
-
Labs:
Laboratory Results
01/18/24
07:57
WBC 5.5
Hgb 10.6 L
Hct 31.6 L
Plt Count 292
PT 13.2
INR 1.02
Sodium 136
Potassium 4.6
Chloride 109 H
Carbon Dioxide 21 L
BUN 3 L
Creatinine 1.0
Glucose 96
Calcium 8.5
Total Bilirubin 0.9
AST 57 H
ALT 36 H
Alkaline Phosphatase 117
Vital Signs:
max temp for 24 hours
01/17/24
23:32
Temp 98.1 F
Vital Signs
Temp Pulse Resp BP Pulse Ox
98.3 F 71 20 151/88 100
01/18/24 07:20 01/18/24 08:59 01/18/24 07:20 01/18/24 08:59 01/18/24 07:20
I&O
04/01/18/24 01/19/24
06:59 06:59 06:59
Intake Total 0 / 0 480 / 480
Balance 0 / 0 480 / 480
Review of Systems
-
All other systems: Reviewed and negative
Physical Exam
-
General: Well Developed, Well Nourished and No Apparent Distress
HEENT: Normocephalic and Atraumatic
Respiratory: Clear to Auscultation; Negative Wheezes or Rhonchi
Cardiac: Regular Rhythm and S1/S2; Negative Murmur
GI: Soft, Nondistended, Normal Bowel Sounds and Tender (left upper side of abdomen)
Musculoskeletal: No Clubbing, No Cyanosis and No Edema
--- NOTE | 2024-01-18 12:19 | CM ---
met with patient at bedside.patient lives in a house owned by friend and her son.There are no steps to enter house and she sleeps on couch and there is a bath on the first floor.she amb i and is i with her adl.patient states she is not able to
afford rent for a one bedroom apt but is looking into a low income apt and will sign up on a waiting list if needed.her pcp is dr delgadillo and she uses [facility] in [place] for her pharmacy.i discussed patient's use of etoh and asked if
she wanted to speak with debbie manzanares.she has declined speaking with behavioral health and states she only has 2 drinks when she is watching a game. she has never had a vn or been to ip rehab in past.patient is adm with gastritis/upper abd pain.she will
have an egd and colonoscopy on saturday.she is on a low rsidue diet but will decrease to clear liquids prior to procedures.plan:discharge to home with no needs.
[2024-01-18 15:30] VITALS: BP 152/83
[2024-01-18] MEDS: PEPCID 40 MG PO (20:08)
[2024-01-18 23:21] VITALS: BP 136/64
[2024-01-19] MEDS: MORPHINE SULFATE 2 MG IV ×3 (01:59→22:28)
[2024-01-19 05:26] LABS: Hematocrit 27.2 % (37.0-47.0); Mean Corp Hgb Conc. 33.1 g/dL (33.0-37.0); Mean Corpuscular Hgb 32.7 pg (27.0-31.0); Mean Corpuscular Volume 98.9 fL (81.0-99.0); Mean Platelet Volume 9.9 fL (7.4-10.4); Platelet Count 243 10^3/uL (130-400); Red Blood Cell Count 2.75 10^6/uL (4.20-5.40); Red Cell Dist. Width 14.5 % (11.5-14.5); White Blood Cell Count 6.4 10^3/uL (4.8-10.8)
[2024-01-19 05:56] LABS: Blood Urea Nitrogen 11 mg/dl (7-17); Calcium 9.5 mg/dl (8.4-10.2); Carbon Dioxide 29 mmol/L (22-30); Chloride 104 mmol/L (98-107); Estimated Creatinine Clearance 43 ml/min; Glucose 96 mg/dl (70-99); Magnesium 1.5 mg/dl (1.6-2.3); Potassium 4.7 mmol/L (3.5-5.1); Sodium 135 mmol/L (135-145); eGFR 54.06
[2024-01-19 07:02] VITALS: BP 140/84
[2024-01-19] MEDS: QUESTRAN LIGHT/PREVALITE 4 GRAMS PO (08:29)
[2024-01-19] MEDS: CYMBALTA DELAYED RELEASE 20 MG PO (08:32)
[2024-01-19] MEDS: DIFICID 200 MG PO ×2 (08:32→21:30)
[2024-01-19] MEDS: VITAMIN B1 100 MG PO ×2 (08:34→21:30)
[2024-01-19] MEDS: FLORASTOR 250 MG PO ×2 (08:35→21:30)
[2024-01-19] MEDS: CARAFATE 1 GRAM PO ×4 (08:35→21:34)
[2024-01-19] MEDS: VITAMIN D3 (cholecalciferol) 125 MCG PO (08:35)
[2024-01-19] MEDS: INDERAL 10 MG PO ×2 (08:35→21:30)
[2024-01-19] MEDS: FOLVITE 1 MG PO (08:35)
[2024-01-19] MEDS: HEPARIN SC ×3 (08:36→21:28)
[2024-01-19] MEDS: NSS (PRESERVATIVE FREE) 10 ML IV ×2 (08:36→21:36)
[2024-01-19] MEDS: PROTONIX IV 40 MG IV ×2 (08:36→21:35)
[2024-01-19] MEDS: MAGNESIUM SULFATE 100 IV (08:36)
[2024-01-19] MEDS: TYLENOL 650 MG PO ×2 (08:47→16:32)
--- NOTE | 2024-01-19 11:04 | W.PN.HOSP.TC ---
Today's Communication/Plan
-
GI scopes tomorrow
Assessment / Plan
Assessment / Plan
Impression:
Persistent epigastric pain with differential alcohol induced gastritis/esophagitis/GERD.
Hiatal hernia
Chronic diarrhea with colitis by imaging.
Transaminitis
Alcohol use disorder with risk for withdrawal--no evidence of WD currently
Alcohol intoxication on presentation with level of 246
Hypokalemia
Normal anion gap metabolic acidosis
Other conditions:
Anemia of chronic disease
Essential hypertension
History of cholecystectomy with chronically dilated CBD.
Anxiety/depression.
Plan:
01/18/24 -- tolerated low residue--back on clears, prepping for scopes Saturday
Presentation with severe epigastric pain mostly at the right upper quadrant.
EGD 06/15 with reflux esophagitis, normal stomach, normal duodenum.
Patient has not been compliant with home medications including PPI
Exam relatively benign with no acute or new symptoms
Normal white count
Mild elevation of transaminases with normal bilirubin
CT scan of the abdomen and pelvis with chronic CBD dilation of unknown significance
Mild hyperbilirubinemia predominantly indirect
Lipase normal
Suspect acute on chronic gastritis
With overall symptomatic improvement advance to clear liquid diet
IV fluids.
IV PPI.
Chronic diarrhea.
Last colonoscopy 5 to 10 years ago at [facility] with unknown results.
CT scan with persistent colitis
Recent workup negative for infectious causes.
C. difficile antigen positive toxin negative, empirically initiated on Dificid could not complete total of 10 days therapy due to noncompliance.
Stool pancreatic elastase within normal limits not confirming pancreatic deficiency.
Stool calprotectin pending.
? Microscopic colitis one of the differential.
Monitor intensity of diarrhea while n.p.o. monitor
Questran.
Complete Dificid course for additional 4-5 days
Eventually will be initiated from colonoscopy.
Alcohol use disorder
Alcohol level on presentation 246
Continue alcohol withdrawal protocol with lorazepam.
Mild transaminitis likely due to alcohol.
Status postcholecystectomy.
CT scan of the abdomen and pelvis confirming chronic CBD dilation.
Follow LFTs.
Normal gap metabolic acidosis
Hypokalemia.
Continue IV fluids, replete potassium, follow BMP
Chronic anemia
-Hemoglobin stable
History of recent suspected gout of right ankle
Essential hypertension
-Continue propranolol
Vitamin D deficiency
History of cholecystectomy chronically dilated CBD
Anxiety/depression
-Continue duloxetine, Ativan
Anticipated Discharge: 24 - 48 hours
Subjective/Interval History
-
Date of Service: January 19, 2024
pt back on clears--prepping for GI scopes
Objective Data
-
Labs:
Laboratory Results
01/19/24
04:52
WBC 6.4
Hgb 9.0 L
Hct 27.2 L
Plt Count 243
Sodium 135
Potassium 4.7
Chloride 104
Carbon Dioxide 29
BUN 11
Creatinine 1.1 H
Glucose 96
Calcium 9.5
Vital Signs:
max temp for 24 hours
01/18/24
23:21
Temp 98.2 F
Vital Signs
Temp Pulse Resp BP Pulse Ox
98.1 F 68 18 140/84 98
01/19/24 07:02 01/19/24 07:02 01/19/24 07:02 01/19/24 07:02 01/19/24 07:02
I&O
01/18/24 01/19/24 01/20/24
06:59 06:59 06:59
Intake Total 480 / 480 1200 / 1200
Balance 480 / 480 1200 / 1200
Review of Systems
-
All other systems: Reviewed and negative
Physical Exam
-
General: Well Developed, Well Nourished and No Apparent Distress
HEENT: Normocephalic and Atraumatic
Respiratory: Clear to Auscultation; Negative Wheezes or Rhonchi
Cardiac: Regular Rhythm and S1/S2; Negative Murmur
GI: Soft, Nontender, Nondistended and Normal Bowel Sounds
Musculoskeletal: No Clubbing, No Cyanosis and No Edema
Skin: Warm
Neuro: Awake and Alert
--- NOTE | 2024-01-19 12:03 | W.PN.GI.CBS2 ---
Today's Communication / Plan
-
-Diarrhea seems to have improved, okay to advance to low residue diet
Plan for colonoscopy tomorrow given recurrent episodes of diarrhea
-Nausea/vomiting with history of esophagitis
Continue PPI IV twice daily
Plan for EGD tomorrow
Noted drop in H/H without overt bleeding
-Dilated common duct, previous MRI and MRCP without any choledocholithiasis or pancreatic lesions
Elevated LFTs, mainly indirect bilirubin
Will follow
Assessment / Plan
-
68-year-old female with a past medical history significant for GERD, hiatal hernia, hypertension, alcohol abuse, colitis, LA grade C/D esophagitis, recent admission with suspected C. difficile infection, prior GI bleed secondary to peptic ulcer,
IBS, suspected gout, anxiety, who presented to the emergency room with complaints of N/V/D as well as chest burning and abdominal pain. Patient with alcohol level of 246. Patient noncompliant with medications that she is required to have in order
to stop her chronic diarrhea. Also on chronic PPI therapy to treat her history of esophagitis. Pancreatic elastase normal. Fecal calpro pending. TSH and celiac negative. All other stool studies in the past have been negative.
Problem list:
-N/V
-Epigastric burning
-Recurrent diarrhea, prior C difficile showing Ag pos but toxin neg treated with Vanco, Dificid in past. Patient responds to Questran BID non complaint.
-History of alcohol abuse, current ETOG level 246
-GERD
-CT imaging showing a 1.2 cm renal lesion, fatty liver, small hiatal hernia, mild interstitial edema, diverticulosis
-Recent admission with pancolitis on CT imaging
-Mildly elevated LFTs, now with elevated total bilirubin.
-History of chronically dilated common bile duct, status postcholecystectomy, MRCP in August 2023
Other pertinent medical history:
-Hypertension
-Hiatal hernia
-Anxiety/depression
-IBS
-Suspected gout
Recommendations:
-Diarrhea seems to have improved, okay to advance to low residue diet
Plan for colonoscopy tomorrow given recurrent episodes of diarrhea
-Nausea/vomiting with history of esophagitis
Continue PPI IV twice daily
Plan for EGD tomorrow
-Dilated common duct, previous MRI and MRCP without any choledocholithiasis or pancreatic lesions
Elevated LFTs, mainly indirect bilirubin
Will follow
-Patient with chronically dilated common bile duct in the setting of cholecystectomy and prior MRCP in August 2023 that was without any signs of choledocholithiasis. If with pain or signs of obstruction would consider repeat MRCP.
-ETOH withdrawal ppx
-recent treatment for C-diff ag + tox neg with dificid (no need for continued tx). Continue probiotic.
-To consider gastric emptying study given her recurrent symptoms and significant esophagitis as she admits to early satiety and bloating symptoms in the past. This was to be planned as an outpatient on prior admission.
-ETOH abstinence. Discussed with patient at length. She is currently living on a couch in an elderly woman's home. (Keira, who the patient states is in her 80's) The home funeral director/embalmer/owner does not drink and the patient purchases for herself. Social Service
consultation should be obtained to see if patient can obtain some help as she has multiple readmissions, non compliance with meds. She does have a daughter who lives in [place].
Subjective
Subjective
Date of Service: January 19, 2024
No new events
Objective
Data Reviewed
Laboratory Data:
Laboratory Results
01/19/24 04:52
01/19/24 04:52
Laboratory Results
PT 13.2 Sec (11.4-14.6) 01/18/24 07:57
INR 1.02 01/18/24 07:57
Magnesium 1.5 mg/dl (1.6-2.3) L 01/19/24 04:52
Total Bilirubin 0.9 mg/dl (0.2-1.3) 01/18/24 07:57
AST 57 U/L (14-36) H 01/18/24 07:57
ALT 36 U/L (0-35) H 01/18/24 07:57
Alkaline Phosphatase 117 U/L (38-126) 01/18/24 07:57
Lipase 51 U/L (23-300) 01/15/24 21:36
Vital Signs and I&O:
Vital Signs
Temp Pulse Resp BP Pulse Ox
98.1 F 68 18 140/84 98
01/19/24 07:02 01/19/24 07:02 01/19/24 07:02 01/19/24 07:02 01/19/24 08:30
I&O
01/18/24 01/19/24 01/20/24
06:59 06:59 06:59
Intake Total 480 / 480 1200 / 1200
Balance 480 / 480 1200 / 1200
Physical Exam
Physical Exam
GI: Soft, Non Distended, Non Tender and Normal Bowel Sounds
[2024-01-19 15:56] VITALS: BP 150/71
[2024-01-19] MEDS: NULYTELY SOLUTION 4 LITERS PO (19:40)
[2024-01-19] MEDS: PEPCID 40 MG PO (21:34)
[2024-01-19] MEDS: FLUSH (NSS) 2 FLUSH IV (22:28)
[2024-01-19 23:12] VITALS: BP 169/83
[2024-01-20] VITALS (10 sets, daily range): BP systolic 105–160; BP diastolic 55–84
--- NOTE | 2024-01-20 02:18 | PTCARENOTE ---
Pt with 3 480 ml cups of prep left- currently refusing to complete. Pt with clear green output.
[2024-01-20] MEDS: MORPHINE SULFATE 2 MG IV ×2 (07:45→21:16)
[2024-01-20 08:21] LABS: Hematocrit 29.4 % (37.0-47.0); Hemoglobin 10.1 g/dL (12.0-16.0); Mean Corp Hgb Conc. 34.4 g/dL (33.0-37.0); Mean Corpuscular Hgb 33.4 pg (27.0-31.0); Mean Corpuscular Volume 97.4 fL (81.0-99.0); Mean Platelet Volume 9.2 fL (7.4-10.4); Platelet Count 270 10^3/uL (130-400); Red Blood Cell Count 3.02 10^6/uL (4.20-5.40); Red Cell Dist. Width 14.8 % (11.5-14.5); White Blood Cell Count 6.7 10^3/uL (4.8-10.8)
--- NOTE | 2024-01-20 09:15 | W.PN.HOSP.TC ---
Today's Communication/Plan
-
Continue Dificid for now
Undergoing bowel prep for endoscopy and colonoscopy
Will defer transition to oral PPI until results
Assessment / Plan
Assessment / Plan
Impression:
Persistent epigastric pain with differential alcohol induced gastritis/esophagitis/GERD.
Hiatal hernia
Chronic diarrhea with colitis by imaging.
Transaminitis
Alcohol use disorder with risk for withdrawal--no evidence of WD currently
Alcohol intoxication on presentation with level of 246
Hypokalemia
Normal anion gap metabolic acidosis
Other conditions:
Anemia of chronic disease
Essential hypertension
History of cholecystectomy with chronically dilated CBD.
Anxiety/depression.
Plan:
01/18/24 -- tolerated low residue--back on clears, prepping for scopes Today
Presentation with severe epigastric pain mostly at the right upper quadrant.
EGD 06/15 with reflux esophagitis, normal stomach, normal duodenum.
Patient has not been compliant with home medications including PPI
Exam relatively benign with no acute or new symptoms
Normal white count
Mild elevation of transaminases with normal bilirubin
CT scan of the abdomen and pelvis with chronic CBD dilation of unknown significance
Mild hyperbilirubinemia predominantly indirect
Lipase normal
Suspect acute on chronic gastritis
With overall symptomatic improvement advance to clear liquid diet/n.p.o. now for scopes
IV fluids.
IV PPI.
Chronic diarrhea.
Last colonoscopy 5 to 10 years ago at [facility] with unknown results.
CT scan with persistent colitis
Recent workup negative for infectious causes.
C. difficile antigen positive toxin negative, empirically initiated on Dificid could not complete total of 10 days therapy due to noncompliance.
Stool pancreatic elastase within normal limits not confirming pancreatic deficiency.
Stool calprotectin pending.
? Microscopic colitis one of the differential.
Monitor intensity of diarrhea while n.p.o. monitor
Questran. Effective but noncompliant with this
Complete Dificid course for additional 4- days
Eventually will be initiated from colonoscopy.
Alcohol use disorder
Alcohol level on presentation 246
Continue alcohol withdrawal protocol with lorazepam.
Mild transaminitis likely due to alcohol.
Status postcholecystectomy.
CT scan of the abdomen and pelvis confirming chronic CBD dilation.
Follow LFTs.
Normal gap metabolic acidosis
Hypokalemia.
Continue IV fluids, replete potassium, follow BMP
Chronic anemia
-Hemoglobin stable
History of recent suspected gout of right ankle
Essential hypertension
-Continue propranolol
Vitamin D deficiency
History of cholecystectomy chronically dilated CBD
Anxiety/depression
-Continue duloxetine, Ativan
Anticipated Discharge: 24 - 48 hours
Subjective/Interval History
-
Date of Service: January 20, 2024
As some vague complaints of left-sided abdominal discomfort just started her bowel prep this morning. Otherwise still having some loose stools.
Objective Data
-
Labs:
Laboratory Results
01/20/24
08:11
WBC 6.7
Hgb 10.1 L
Hct 29.4 L
Plt Count 270
Sodium Pending
Potassium Pending
Chloride Pending
Carbon Dioxide Pending
BUN Pending
Creatinine Pending
Glucose Pending
Calcium Pending
Vital Signs:
Vital Signs
Temp Pulse Resp BP Pulse Ox
97.9 F 81 18 112/80 98
01/20/24 08:05 01/20/24 08:05 01/20/24 08:05 01/20/24 08:05 01/20/24 08:05
I&O
01/19/24 01/20/24 01/21/24
06:59 06:59 06:59
Intake Total 1200 / 1200 660 / 660
Balance 1200 / 1200 660 / 660
Review of Systems
-
Unable to obtain full review of systems at this time due to: Dementia
History Source: Patient
Constitutional: Reports No Symptoms
Abdomen/GI: Reports Abdominal Pain and Diarrhea
Physical Exam
-
General: Well Developed
HEENT: Normocephalic
Respiratory: Clear to Auscultation
Cardiac: Regular Rhythm
GI: Soft and Tender (Left side but soft)
Neuro: Awake and Alert
Psych: Calm
Data Reviewed
-
Total Time Spent with Patient (in minutes): 45
Labs: Labs Reviewed by me (White count 6.7/hemoglobin 10.1)
[2024-01-20 09:16] LABS: Blood Urea Nitrogen 7 mg/dl (7-17); Calcium 9.2 mg/dl (8.4-10.2); Carbon Dioxide 29 mmol/L (22-30); Chloride 104 mmol/L (98-107); Estimated Creatinine Clearance 43 ml/min; Glucose 96 mg/dl (70-99); Magnesium 1.7 mg/dl (1.6-2.3); Potassium 4.5 mmol/L (3.5-5.1); Sodium 136 mmol/L (135-145); eGFR 54.06
[2024-01-20] MEDS: HEPARIN SC ×2 (09:18→21:04)
[2024-01-20] MEDS: INDERAL 10 MG PO ×2 (09:21→21:09)
[2024-01-20] MEDS: CYMBALTA DELAYED RELEASE 20 MG PO (09:22)
[2024-01-20] MEDS: VITAMIN D3 (cholecalciferol) 125 MCG PO (09:22)
[2024-01-20] MEDS: VITAMIN B1 100 MG PO ×2 (09:22→21:08)
[2024-01-20] MEDS: DIFICID 200 MG PO ×2 (09:22→21:09)
[2024-01-20] MEDS: CARAFATE 1 GRAM PO ×3 (09:23→21:08)
[2024-01-20] MEDS: FOLVITE 1 MG PO (09:23)
[2024-01-20] MEDS: FLORASTOR 250 MG PO ×2 (09:24→21:08)
[2024-01-20] MEDS: NSS (PRESERVATIVE FREE) 10 ML IV (09:24)
[2024-01-20] MEDS: PROTONIX IV 40 MG IV (09:25)
[2024-01-20] MEDS: QUESTRAN LIGHT/PREVALITE PO (10:07)
[2024-01-20] MEDS: CARAFATE PO (11:44)
--- NOTE | 2024-01-20 12:39 | W.PN.UPDATE ---
Update Note
Progress Note Update
S/P EGD
Irregular z line, bx taken
Small HH
Gastric antrum erythema, bx to r/o H.P
s/p colonoscopy
- Preparation of the colon was poor.
- The examined portion of the ileum was normal.
- Two 3 to 14 mm polyps in the cecum, removed with a cold snare and removed using injection-lift and a hot snare. Resected and retrieved.
- One 7 mm polyp in the ascending colon, removed with a hot snare. Resected and retrieved.
- One 7 mm polyp in the transverse colon, removed with a hot snare. Resected and retrieved.
- Two 3 to 15 mm polyps in the distal transverse colon, removed with a cold snare and removed using injection-lift and a hot snare. Resected and retrieved.
- One 4 mm polyp in the descending colon, removed with a cold snare. Resected and retrieved.
- Normal mucosa in the entire examined colon. Biopsied.
- Diverticulosis in the recto-sigmoid colon, in the sigmoid colon and in the descending colon.
- Internal hemorrhoids.
Plan
- Await pathology results.
- Telephone GI clinic for pathology results in 2 weeks.
- Repeat colonoscopy in 6 months for surveillance and poor prep.
- Resume previous diet.
- No ibuprofen, naproxen, or other non-steroidal anti-inflammatory drugs for 5 days after polyp removal.
- Need to stop drinking to rpevent diarrhea episodes.
--- NOTE | 2024-01-20 15:42 | CM ---
Patient seen bedside, reports no needs to CM at this time. Patient is hopeful for discharge tomorrow. CM will continue to follow for discharge planning needs.
Plan; home no needs.
[2024-01-20] MEDS: TYLENOL 650 MG PO (18:15)
[2024-01-20] MEDS: PEPCID 40 MG PO (21:08)
[2024-01-20] MEDS: ATIVAN 0.5 MG PO (23:52)
[2024-01-21] MEDS: MORPHINE SULFATE 2 MG IV ×2 (07:24→12:08)
[2024-01-21 08:08] VITALS: BP 172/80
[2024-01-21 08:47] LABS: Hemoglobin 10.7 g/dL (12.0-16.0); Mean Corp Hgb Conc. 34.5 g/dL (33.0-37.0); Mean Corpuscular Hgb 33.6 pg (27.0-31.0); Mean Corpuscular Volume 97.5 fL (81.0-99.0); Mean Platelet Volume 9.6 fL (7.4-10.4); Platelet Count 313 10^3/uL (130-400); Red Blood Cell Count 3.18 10^6/uL (4.20-5.40); White Blood Cell Count 8.4 10^3/uL (4.8-10.8)
[2024-01-21 09:04] LABS: Blood Urea Nitrogen 8 mg/dl (7-17); Calcium 9.7 mg/dl (8.4-10.2); Carbon Dioxide 27 mmol/L (22-30); Chloride 102 mmol/L (98-107); Estimated Creatinine Clearance 47 ml/min; Glucose 112 mg/dl (70-99); Potassium 4.4 mmol/L (3.5-5.1); Sodium 137 mmol/L (135-145); eGFR > 60.00
[2024-01-21] MEDS: DIFICID 200 MG PO (09:53)
[2024-01-21] MEDS: FLORASTOR 250 MG PO (09:53)
[2024-01-21] MEDS: INDERAL 10 MG PO (09:53)
[2024-01-21] MEDS: VITAMIN B1 100 MG PO (09:53)
[2024-01-21] MEDS: PROTONIX 40 MG PO (09:53)
[2024-01-21] MEDS: CYMBALTA DELAYED RELEASE 20 MG PO (09:54)
[2024-01-21] MEDS: HEPARIN SC (09:54)
[2024-01-21] MEDS: VITAMIN D3 (cholecalciferol) 125 MCG PO (09:54)
[2024-01-21] MEDS: CARAFATE 1 GRAM PO ×2 (09:54→11:49)
[2024-01-21] MEDS: FOLVITE 1 MG PO (09:54)
--- NOTE | 2024-01-21 11:34 | CM ---
Patient seen bedside.
patient known to CM from prior admissions.
Patient current with [facility], and patient agreeable to resume services.
Patient for d/c home today, she will [facility].
IMM completed.
Plan: home with [facility].
[2024-01-21] MEDS: QUESTRAN LIGHT/PREVALITE 4 GRAMS PO (11:49)
[2024-01-21 12:49] VITALS: BP 142/68
--- NOTE | 2024-01-21 13:27 | W.DCSUMMARY ---
Discharge Summary
Discharge Data
Date of Admission: 01/16/24
Date of Discharge: 01/21/24
-
Pending Results: No
Hospital Course
76-year-old female again admitted in relation to her multiple admissions in relation to persistent epigastric pain with differential at time presentation alcohol induced versus gastritis versus esophagitis and gastroesophageal reflux disease has a
known history of hiatal hernia and chronic diarrhea with colitis by imaging she also presents again with transaminitis with a history of cholecystectomy and chronically dilated chronic common bile duct on this occasion although she has a history of
alcohol use disorder and risk for withdrawal she had no evidence of withdrawal symptomatology during this admission. Nonetheless she was placed on alcohol withdrawal protocol and surprisingly did present with a alcohol intoxication level of 246 but
did not manifest withdrawal during hospitalization hypokalemia presentation was corrected and a normal anion gap metabolic acidosis was also corrected maintained on IV PPI during initial hospitalization she is on multiple medications as an
outpatient for her chronic epigastric symptoms that includes sucralfate H2 antagonist in the form of famotidine and 2 separate prescriptions for PPI including Nexium and Protonix which apparently she was taking both at the same time she has been
notably noncompliant to her Questran has been prescribed in earlier admissions due to her chronic diarrhea and did again tested positive for the antigen for close C. difficile but however the toxin proved negative here nonetheless the patient had
been on outpatient course of leading up to this on a vancomycin taper and at the time of presentation and after admission she was placed on Dificid here. Consultation was placed with the gastroenterology service who felt with the order a complete
list that does not been able to be addressed in the recent past that she should undergo endoscopic evaluations and she underwent this on 19 January both an upper GI endoscopy and a colonoscopy after noting a poor prep/EGD only showing congestive
gastropathy that was biopsied along with erythematous mucosa in the antrum also biopsied normal duodenum was noted with recommendations to avoid NSAIDs and continuation of PPI/in spite of the poor prep involved the patient was found to have multiple
sessile polyps throughout the colon. Underwent removal with hot snare and retrieved: With report as follows-
Two 3 to 14 mm polyps in the cecum, removed with a
cold snare and removed using injection-lift and a hot
snare. Resected and retrieved.
- One 7 mm polyp in the ascending colon, removed with
a hot snare. Resected and retrieved.
- One 7 mm polyp in the transverse colon, removed with
a hot snare. Resected and retrieved.
- Two 3 to 15 mm polyps in the distal transverse
colon, removed with a cold snare and removed using
injection-lift and a hot snare. Resected and retrieved.
- One 4 mm polyp in the descending colon, removed with
a cold snare. Resected and retrieved.
- Normal mucosa in the entire examined colon. Biopsied.
- Diverticulosis in the recto-sigmoid colon, in the
sigmoid colon and in the descending colon.
- Internal hemorrhoids.
Recommendations per the GI service is to telephone GI clinic for path results in 2 weeks also a repeat colonoscopy is recommended in 6 months for surveillance and in the poor prep that was noted she can resume previous diet again instructed on no
NSAID usage and again related to her to stop alcohol and to remain compliant on her Questran which has been successful in the past and ameliorating a lot of her frequent stooling but has been noncompliant with
Discharge Plan
-
Patient Disposition: Home (Routine Discharge)
Discharge Diagnosis/Procedures: Abdominal pain
Status post colonoscopy EGD/multiple polypectomies
Anemia of chronic disease
Chronically dilated common bile duct
Diet: Regular
Activity: As tolerated
Driving Restrictions: As prior to admission
Referrals:
Krysta Griffin MD [Active] - 01/31/24 11:30 am (Please call to reschedule if you can not keep this appointment. If your insurance requires a referral please contact your primary care physician prior to your appointment. )
UNKNOWN - PT DOES,NOT KNOW [Family Provider] -
Prescriptions:
New
pantoprazole 40 mg Tablet,Delayed Release (Dr/Ec)
40 mg PO DAILY Qty: 0 0RF
Continued
duloxetine 20 mg Capsule,Delayed Release(Dr/Ec)
20 mg PO DAILY Qty: 30 0RF
folic acid 1 mg Tablet
1 mg PO DAILY Qty: 30 0RF
thiamine HCl (vitamin B1) 100 mg Tablet
100 mg PO DAILY Qty: 30 0RF
cholecalciferol (vitamin D3) 125 mcg (5,000 unit) Tablet
125 mcg PO DAILY Qty: 30 0RF
cholestyramine-aspartame [Cholestyramine Light] 4 gram Powder In Packet
1 ea PO DAILY Qty: 60 0RF
Saccharomyces boulardii 250 mg Capsule
250 mg PO BID 30 Days Qty: 60 0RF
famotidine 40 mg Tablet
40 mg PO HS
sumatriptan succinate 50 mg Tablet
0 mg PO .COMPLEX
Rx Instructions:
01/12/2024, take 1 tab at onset of headache; if no relief may repeat 1 tab after at least 2 hrs; max = 4 tabs/24 hr.
prochlorperazine maleate 10 mg Tablet
10 mg PO DAILYPRN PRN (Reason: migraine)
propranolol 10 mg Tablet
10 mg PO BID
nitroglycerin 0.4 mg Tablet, Sublingual
0.4 mg SUBLINGUAL [id number] PRN (Reason: chest pain)
alum-mag hydroxide-simeth 200-200-20 mg/5 mL Suspension
10 - 20 ml PO ACHS PRN (Reason: heartburn)
zinc oxide-vitamin B5-vit E 11.3 % Cream
1 applic TOPICAL DIRECTED
Gas Relief (simethicone) 250 mg Capsule
250 mg PO DIRECTED
lorazepam 0.5 mg Tablet
0.5 mg PO HS
Patient Comments:
01/12/2024, last filled on 11/15/2023 for 7 tablets per PDMP.
ondansetron HCl 4 mg tablet
4 mg PO Q8H PRN (Reason: nausea and vomiting) 5 Days Qty: 14 0RF
Discontinued
esomeprazole magnesium [Nexium] 20 mg Capsule,Delayed Release(Dr/Ec)
20 mg PO BID
sucralfate 1 gram Tablet
1 g PO ACHS Qty: 120 0RF
Dificid 200 mg Tablet
200 mg PO BID 5 Days Qty: 10 0RF
Patient Comments:
01/12/2024, filled on 12/31/2023 and instructed to take one tablet BID for 10 days.
vancomycin 125 mg Capsule
125 mg PO QID
Patient Comments:
01/12/2024, last filled on 12/27/2023 and instructed to take one capsule QID for 9 days.
pantoprazole 40 mg tablet,delayed release (DR/EC)
40 mg PO BID
Discharge Orders:
Discharge Patient (As Directed); Ordered 01/21/24
Ordered By: Chris King
Discharge Date and Time
Print Language: UKRAINIAN
--- NOTE | 2024-01-21 14:10 | W.DS.TRANS ---
DC Summary - Health Promotion Coordinator
-
Discharge Instructions:
Discharge Diagnosis/Procedures Abdominal pain
Status post colonoscopy EGD/multiple
polypectomies
Anemia of chronic disease
Chronically dilated common bile duct
Diet Regular
Activity As tolerated
Driving Restrictions As prior to admission
Instructions:
Stand-Alone Forms:
Changes to Home Medications: No
Discharge Medications:
DC Medications w/original date entered in [employer]
cholecalciferol (vitamin D3) 125 mcg (5,000 unit) tablet 125 mcg PO DAILY #30 tabs 12/26/23
duloxetine 20 mg capsule,delayed release 20 mg PO DAILY #30 caps 12/26/23
folic acid 1 mg tablet 1 mg PO DAILY #30 tabs 12/26/23
thiamine HCl (vitamin B1) 100 mg tablet 100 mg PO DAILY #30 tabs 12/26/23
cholestyramine-aspartame 4 gram oral powder for susp in a packet (Cholestyramine Light) 1 ea PO DAILY #60 ea 12/30/23
Saccharomyces boulardii 250 mg capsule 250 mg PO BID 30 days #60 caps 01/10/24
aluminum-mag hydroxide-simethicone 200 mg-200 mg-20 mg/5 mL oral susp 10 - 20 ml PO ACHS PRN heartburn 01/12/24
famotidine 40 mg tablet 40 mg PO HS GERD 01/12/24
lorazepam 0.5 mg tablet 0.5 mg PO HS Anxiety 01/12/24
nitroglycerin 0.4 mg sublingual tablet 0.4 mg sublingual [id number] PRN chest pain 01/12/24
ondansetron HCl 4 mg tablet 4 mg PO Q8H PRN nausea and vomiting 5 days #14 tabs 01/12/24
prochlorperazine maleate 10 mg tablet 10 mg PO DAILYPRN PRN migraine 01/12/24
propranolol 10 mg tablet 10 mg PO BID Blood Pressure 01/12/24
simethicone 250 mg capsule (Gas Relief (simethicone)) 250 mg PO DIRECTED Gas relief 01/12/24
sumatriptan succinate 50 mg tablet 0 mg PO .COMPLEX Migraine 01/12/24
zinc oxide-vitamin B5-vit E 11.3% topical cream 1 applic topical DIRECTED Skin Issues 01/12/24
pantoprazole 40 mg tablet,delayed release 40 mg PO DAILY #0 tabs 01/21/24
Home Medication Changes
pantoprazole 40 mg tablet,delayed release 40 mg PO DAILY #0 tabs 01/21/24
Pending Results: No
Total time spent discharging patient (in min): 40
--- NOTE | 2024-01-21 15:14 | VNURNOTE ---
[facility] referral completed after review of chart earlier today.
== END 2024-01-21 13:53 | disposition home health service (06) | DRG 392 ==
LOC: 4 EAST ACU 04:30
PROVIDERS: Internal Medicine; Internal Medicine Gastroenterology; Nurse Practitioner; ADMITTING PHYSICIAN Hospitalist; ATTENDING PHYSICIAN Internal Medicine; CONSULT PHYSICIAN Internal Medicine Gastroenterology; EMERGENCY PHYSICIAN Emergency Medicine
PROC: 0DB58ZX Excision of Esophagus, Via Natural or Artificial Opening Endoscopic, Diagnostic (ICD-10-PCS; 2024-01-20)
PROC: 0DBM8ZX Excision of Descending Colon, Via Natural or Artificial Opening Endoscopic, Diagnostic (ICD-10-PCS; 2024-01-20)
PROC: 0DB78ZX Excision of Stomach, Pylorus, Via Natural or Artificial Opening Endoscopic, Diagnostic (ICD-10-PCS; 2024-01-20)
PROC: 0DBK8ZX Excision of Ascending Colon, Via Natural or Artificial Opening Endoscopic, Diagnostic (ICD-10-PCS; 2024-01-20)
PROC: 0DBL8ZX Excision of Transverse Colon, Via Natural or Artificial Opening Endoscopic, Diagnostic (ICD-10-PCS; 2024-01-20)
PROC: 0DB68ZX Excision of Stomach, Via Natural or Artificial Opening Endoscopic, Diagnostic (ICD-10-PCS; 2024-01-20)
PROC: 0DBH8ZX Excision of Cecum, Via Natural or Artificial Opening Endoscopic, Diagnostic (ICD-10-PCS; 2024-01-20)
DX: K29.20 Alcoholic gastritis without bleeding (principal); A04.72 Enterocolitis due to Clostridium difficile, not specified as recurrent; E87.20 Acidosis, unspecified; K29.00 Acute gastritis without bleeding; K21.00 Gastro-esophageal reflux disease with esophagitis, without bleeding; F10.129 Alcohol abuse with intoxication, unspecified; F41.9 Anxiety disorder, unspecified; F32.A Depression, unspecified; E87.6 Hypokalemia; K83.8 Other specified diseases of biliary tract; I10 Essential (primary) hypertension; K44.9 Diaphragmatic hernia without obstruction or gangrene; M10.9 Gout, unspecified; D63.8 Anemia in other chronic diseases classified elsewhere; R74.01 Elevation of levels of liver transaminase levels; E55.9 Vitamin D deficiency, unspecified; Y90.8 Blood alcohol level of 240 mg/100 ml or more; K22.89 Other specified disease of esophagus; K64.8 Other hemorrhoids; D12.0 Benign neoplasm of cecum; D12.3 Benign neoplasm of transverse colon; D12.2 Benign neoplasm of ascending colon; D12.4 Benign neoplasm of descending colon; K57.30 Diverticulosis of large intestine without perforation or abscess without bleeding; K31.89 Other diseases of stomach and duodenum; K58.9 Irritable bowel syndrome, unspecified; Z87.891 Personal history of nicotine dependence; Z90.49 Acquired absence of other specified parts of digestive tract; Z90.710 Acquired absence of both cervix and uterus; Z91.148 Patient's other noncompliance with medication regimen for other reason; Z87.11 Personal history of peptic ulcer disease; Z91.199 Patient's noncompliance with other medical treatment and regimen due to unspecified reason; Z88.6 Allergy status to analgesic agent; Z88.2 Allergy status to sulfonamides; Z88.8 Allergy status to other drugs, medicaments and biological substances
CPT/HCPCS: 88305; 74177; 76700; 80048; 80053; 82077; 82248; 83690; 83735; 85025; 85027; 85610; 88342; 93005; 96361; 96374; 96375; 96376; 99285; Q9967

== ENCOUNTER 2024-02-13 04:31 | Emergency (ER) | payer MEDICARE, SELFPAY ==
[2024-02-13] VITALS (7 sets, daily range): BP systolic 112–141; BP diastolic 68–84; BMI 22.6
--- NOTE | 2024-02-13 05:08 | ED.GENMED ---
History of Present Illness
General
Chief Complaint: Chest Pain
Source: patient, ambulance crew and previous hospital records (Multiple previous ED visits as well as multiple previous hospitalizations for similar complaint of nausea vomiting, epigastric pain, chest pain.)
Exam Limitations: none
Time Seen by Provider: 02/13/24 04:45
Nursing documentation reviewed up to this point in time: agreed with
Travel History
Have you had any contact with someone who has COVID-19?: No
Do you have any symptoms of coronavirus? Fever > 100 degrees, chills, cough, shortness of breath, sore throat, loss of taste or smell, muscle aches, or headache?: No
History of Present Illness
History of Present Illness:
This is a 68-year-old woman with history of hypertension, GERD, hiatal hernia, gastritis, peptic ulcer disease, alcohol abuse, colitis who presents with complaints of somewhat abrupt onset of epigastric abdominal discomfort, nausea, vomiting, lower
substernal chest pain.
Review of records reveals multiple previous hospitalizations along with multiple previous ED visits for very similar complaints with most recent hospitalization January 15 to January 20 for similar presentation. Upper endoscopy showed gastritis without
hemorrhage. Colonoscopy revealed several polyps which were removed but a poor prep.
She is chronically noncompliant with PPIs, H2 blockers and on most recent hospitalization was noted to have elevated alcohol level of 240. No evidence of alcohol withdrawal during hospitalization.
She currently denies recent alcohol use, no recent antibiotic use nor recent travel. She denies hematemesis, denies black or tarry stools. She does admit to passing 1 loose stool earlier today but denies diarrhea.
She has prior history of pancolitis with C. difficile with hospitalization December 21 until December 29 of this year. Completed a course of Dificid.
She has history of benzodiazepine abuse. According to PDMP, benzodiazepines have been weaned to off since October 2023.
She arrives via EMS. Has been given Zofran 4 mg prehospital. She continues to complain of nausea with intermittent retching without vomiting.
Past History
Past History
ED Past Medical History: Cancer (Skin Cancer face), GERD, HTN, Psychiatric (Anxiety), Other (GI bleeding, HIatal hernia. Ulcers, anemia. Migraine headaches) and Other (recent colitis November/December 2023, severe esophagitis, alcohol abuse,
benzodiazepine withdrawal)
ED Past Surgical History: Appendectomy, Cholecystectomy, Gynecological (hysterectomy, RUE epicondylitis X 2) and Orthopedic
Patient has exhibited threatening behavior?: No
PSI?: No
Social History
Tobacco: Former smoker
Alcohol: Binge drinker
Drug: None and Other (History of benzodiazepine abuse)
Personal:
Living: alone
Family History
Family History: Other (Noncontributory)
Phy Exam
Physical Exam
Physical Exam:
GENERAL: 68-year-old woman appears her stated age, awake and alert, pleasant, appears in no acute distress. Holding emesis basin at the ready.
EYE: pupils equal and reactive. anicteric
NECK: Supple, nontender, no meningismus, no significant adenopathy.
ENT: oral mucosa is moist. No rhinorrhea.
CARDIAC: Regular rate and rhythm. no murmur.
LUNGS: Clear breath sounds bilaterally, no acute respiratory distress, no wheezes/rales/rhonchi
ABDOMEN: Soft, nondistended, minimal tenderness epigastric region with deep palpation only, no r/g, no cvat. normoactive BS.
NEUROLOGICAL: Alert and oriented x3, no focal neuro deficits.
SKIN: Warm and dry, normal color, skin intact. No rash.
MUSCULOSKELETAL: No C/C/E. peripheral pulses are full and equal b/l. No palpable tenderness.
PSYCH: Normal and appropriate interaction.
Scores
Heart Score for Chest Pain Patients
STEMI patient?: No
History: Slightly or Non-Suspicious
ECG: Normal
Age: >/= 65 years
Risk Factors: 1 or 2 Risk Factors
Troponin: </= Normal Limit
Heart Score for Chest Pain Patients: 3
Heart Score Risk: 2.5% MACE over next 6 weeks
Course
Orders/Labs/Results
Orders:
Orders
02/13/24 04:32
Electrocardiogram (*1) Urgent
Reason for Study: Chest Pain
Cardiac Monitoring- Treatment ONCE
EKG- Treatment ONCE
EKG- Treatment ONCE
IV Insert/Care/Rem.- Treatment PRN
O2 Therapy [RESP] Urgent
Titrate/Wean O2 to maintain O2 sat greater than (%): 90
Special Instructions: Maintain sats >/=90%
Pulse Ox/spot Check [RESP] Urgent
Quantity: 1
Special Instructions: ON ROOM AIR
02/13/24 04:39
Alcohol Urgent
Complete Blood Count/With Diff Urgent
Comprehensive Metabolic Panel Urgent
Lipase Urgent
Troponin I Urgent
02/13/24 05:07
Diphenhydramine [Benadryl] 25 mg IV NOW STA
Pantoprazole [Protonix IV] 40 mg IV NOW STA
Prochlorperazine [Compazine] 10 mg IV NOW STA
02/13/24 06:00
0.9% Sodium Chloride 1000 ml [Nss] 1,000 ml Mvi, Adult [Multivitamin] 10 ml Thiamine Injection 100 mg IV 1,000 mls/hr
02/13/24 06:50
Mag Hydrox/Al Hydrox/Simeth [Maalox] 30 ml Phenobarb/Hyoscy/Atropine/Scop [] 10 ml Viscous Lidocaine 2% [Xylocaine Viscous Cup] 10 ml PO NOW
Sucralfate Suspension [Carafate Suspension] 1 gm PO NOW STA
02/13/24 06:55
Mag Hydrox/Al Hydrox/Simeth [Maalox] 30 ml .ROUTE .STK-MED ONE
Phenobarb/Hyoscy/Atropine/Scop [] 10 ml .ROUTE .STK-MED ONE
Viscous Lidocaine 2% [Xylocaine Viscous Cup] 15 ml .ROUTE .STK-MED ONE
Abnormal Lab Results
02/13/24
04:39
WBC 12.9 H 10^3/uL
(4.8-10.8)
RBC 3.49 L 10^6/uL
(4.20-5.40)
Hgb 11.3 L g/dL
(12.0-16.0)
Hct 33.0 L %
(37.0-47.0)
MCH 32.4 H pg
(27.0-31.0)
Plt Count 527 H 10^3/uL
(130-400)
Abs Immat Gran (auto) 0.1 H 10^3/uL
(0-0.05)
Absolute Neuts (auto) 10.2 H 10^3/uL
(1.4-6.5)
Absolute Monos (auto) 0.8 H 10^3/uL
(0.1-0.6)
Neutrophils % 78.9 H %
(42.2-75.2)
Lymphocytes % 13.5 L %
(20.5-51.1)
Carbon Dioxide 21 L mmol/L
(22-30)
BUN 21 H mg/dl
(7-17)
Glucose 121 H mg/dl
(70-99)
02/13/24 04:39
02/13/24 04:39
Vital Signs
Initial and Last Documented VS:
Initial Vital Signs
Temp Pulse Resp BP Pulse Ox
98.6 F 83 19 112/78 97
02/13/24 04:33 02/13/24 04:33 02/13/24 04:33 02/13/24 04:33 02/13/24 04:33
Last Documented Vital Signs
Temp Pulse Resp BP Pulse Ox
98.6 F 75 18 141/83 96
02/13/24 04:33 02/13/24 06:15 02/13/24 06:15 02/13/24 06:00 02/13/24 06:00
MDM/Problems Addressed
Differential Diagnosis Includes:
Concern for recurrent gastritis, exacerbation of hiatal hernia/GERD, ACS, pancreatitis, common bile duct stone, alcohol withdrawal, alcoholic gastritis.
Will check labs including troponin, lipase, alcohol level.
Will initiate IV fluids, given IV dose of Compazine, Protonix.
EKG is unremarkable, unchanged from previous.
Will consider imaging depending on lab results and clinical course.
Chronic conditions affecting care: HTN and Other (Hiatal hernia, GERD, peptic ulcer disease, history of alcohol abuse, history of chronic noncompliance with medications.)
*Pulse Oximetry
Patient hypoxic: no
*EKG
Interpreted by ED Provider?: Yes
Interpretation: normal
Comparison EKG: no changes (Unchanged from previous January 15, 2024)
Rate: normal
Rhythm: sinus
[place]: normal axis
Interval: normal interval
QRS Pattern: normal QRS
Ischemia: no ischemia
*Network Designer Interpretation
Rate: normal
Interpretation: normal
Rhythm: sinus
*Critical Care Note
Total Time (30-74mins, 75-104mins- exclusive of procedures): Not Applicable
Update Note
Update Note:
02/13/2024 0704 AM
Patient feeling improved after IV Compazine. IV fluids currently infusing.
She continues with mild epigastric discomfort. She has had no return of nausea and vomiting however.
Labs show mildly elevated white blood cell count, mild but stable anemia. LFTs within normal limits. Troponin is negative. Lipase is normal. Alcohol is low at 10.
There is no evidence of alcohol withdrawal on exam and no prior episodes of alcohol withdrawal during previous hospitalizations.
Patient admits that she has been noncompliant with PPI, H2 ciro. During last hospitalization it was assumed that she had these medications at home thus no prescriptions were provided.
Will trial a GI cocktail and then Carafate and if she overall does well plan is to discharge to home with prescription for once daily pantoprazole 40 mg, famotidine 40 mg at at bedtime.
Will also add a short course of Carafate.
Recommend she continue to avoid all alcoholic beverages, continue to avoid NSAIDs.
Recommend follow-up with PCP as well as bench technician.
ED Attending Note
-
Portions of this chart may have been created with voice recognition software.� Occasional wrong word or��sound alike� substitutions may have occurred due to the inherent limitations of voice recognition software.
Discharge Plan
Departure
Condition: Good
Discharge Problem:
Acute gastritis, GERD (gastroesophageal reflux disease), Acute upper abdominal pain
Instructions: [place] Diet, Gastritis (DC)
Prescriptions:
New
famotidine 40 mg tablet
40 mg PO HS Qty: 30 3RF
pantoprazole [Protonix] 40 mg tablet,delayed release (DR/EC)
40 mg PO DAILY Qty: 30 3RF
sucralfate [Carafate] 100 mg/mL suspension
10 ml PO QID PRN (Reason: upper abdominal pain) Qty: 400 0RF
No Action
duloxetine 20 mg Capsule,Delayed Release(Dr/Ec)
20 mg PO DAILY Qty: 30 0RF
folic acid 1 mg Tablet
1 mg PO DAILY Qty: 30 0RF
thiamine HCl (vitamin B1) 100 mg Tablet
100 mg PO DAILY Qty: 30 0RF
cholecalciferol (vitamin D3) 125 mcg (5,000 unit) Tablet
125 mcg PO DAILY Qty: 30 0RF
cholestyramine-aspartame [Cholestyramine Light] 4 gram Powder In Packet
1 ea PO DAILY Qty: 60 0RF
Saccharomyces boulardii 250 mg Capsule
250 mg PO BID 30 Days Qty: 60 0RF
famotidine 40 mg Tablet
40 mg PO HS
sumatriptan succinate 50 mg Tablet
0 mg PO .COMPLEX
Rx Instructions:
01/12/2024, take 1 tab at onset of headache; if no relief may repeat 1 tab after at least 2 hrs; max = 4 tabs/24 hr.
prochlorperazine maleate 10 mg Tablet
10 mg PO DAILYPRN PRN (Reason: migraine)
propranolol 10 mg Tablet
10 mg PO BID
nitroglycerin 0.4 mg Tablet, Sublingual
0.4 mg SUBLINGUAL [id number] PRN (Reason: chest pain)
alum-mag hydroxide-simeth 200-200-20 mg/5 mL Suspension
10 - 20 ml PO ACHS PRN (Reason: heartburn)
zinc oxide-vitamin B5-vit E 11.3 % Cream
1 applic TOPICAL DIRECTED
Gas Relief (simethicone) 250 mg Capsule
250 mg PO DIRECTED
lorazepam 0.5 mg Tablet
0.5 mg PO HS
Patient Comments:
01/12/2024, last filled on 11/15/2023 for 7 tablets per PDMP.
ondansetron HCl 4 mg tablet
4 mg PO Q8H PRN (Reason: nausea and vomiting) 5 Days Qty: 14 0RF
pantoprazole 40 mg Tablet,Delayed Release (Dr/Ec)
40 mg PO DAILY Qty: 0 0RF
Referrals:
Krysta Griffin MD [Active] - Call in 1-3 days for appt
Ishaan Ames DO [Family Provider] - Call in 1-3 days for appt
Interventions
Interventions:
*Risk Screen - Suicide Last Done: 02/13/24 04:33
*General Assessment Last Done: 02/13/24 04:33
*Neglect/Abuse Screening Last Done: 02/13/24 04:33
ED- Fall Risk Assessment Last Done: 02/13/24 04:40
*ED COVID-19 Vaccine History Last Done: 02/13/24 04:33
ED- Cardiac Assessment Last Done: 02/13/24 04:40
Discharge Date and Time
Print Language: ROMANSH
[2024-02-13] MEDS: BENADRYL 25 MG IV (05:11)
[2024-02-13] MEDS: PROTONIX IV 40 MG IV (05:12)
[2024-02-13] MEDS: COMPAZINE 10 MG IV (05:12)
[2024-02-13 05:31] LABS: % Basophils 0.8 % (0-2); % Eosinophils 0.4 % (0-6); % Immature Granulocytes 0.5 % (0-0.5); % Lymphocytes 13.5 % (20.5-51.1); % Monocytes 5.9 % (1.7-9.3); % Neutrophils 78.9 % (42.2-75.2); Absolute Basophils 0.1 10^3/uL (0-0.2); Absolute Eosinophils 0.1 10^3/uL (0-0.7); Absolute Immature Granulocytes 0.1 10^3/uL (0-0.05); Absolute Lymphocytes 1.8 10^3/uL (1.2-3.4); Absolute Monocytes 0.8 10^3/uL (0.1-0.6); Absolute Neutrophils 10.2 10^3/uL (1.4-6.5); Hemoglobin 11.3 g/dL (12.0-16.0); Mean Corp Hgb Conc. 34.2 g/dL (33.0-37.0); Mean Corpuscular Hgb 32.4 pg (27.0-31.0); Mean Corpuscular Volume 94.6 fL (81.0-99.0); Mean Platelet Volume 9.6 fL (7.4-10.4); Nucleated Red Blood Cells % 0 %; Platelet Count 527 10^3/uL (130-400); Red Blood Cell Count 3.49 10^6/uL (4.20-5.40); Red Cell Dist. Width 14.1 % (11.5-14.5); White Blood Cell Count 12.9 10^3/uL (4.8-10.8)
[2024-02-13 05:48] LABS: ALT (SGPT) 19 U/L (0-35); AST (SGOT) 24 U/L (14-36); Albumin 3.9 g/dl (3.5-5.0); Alcohol 10 mg/dl; Alkaline Phosphatase 120 U/L (38-126); Blood Urea Nitrogen 21 mg/dl (7-17); Carbon Dioxide 21 mmol/L (22-30); Chloride 102 mmol/L (98-107); Estimated Creatinine Clearance 47 ml/min; Glucose 121 mg/dl (70-99); Lipase 65 U/L (23-300); Potassium 4.1 mmol/L (3.5-5.1); Sodium 138 mmol/L (135-145); Total Bilirubin 0.8 mg/dl (0.2-1.3); Total Protein 6.5 g/dl (6.3-8.2); eGFR > 60.00
[2024-02-13 05:58] LABS: Troponin I < 0.012 ng/ml
[2024-02-13] MEDS: MULTIVITAMIN 1011 ML IV (06:49)
[2024-02-13] MEDS: MULTIVITAMIN 1011 MG IV (06:49)
[2024-02-13] MEDS: CARAFATE SUSPENSION 1 GM PO (06:56)
[2024-02-13] MEDS: MAALOX 50 PO (06:56)
== END 2024-02-13 11:06 | disposition home or self-care (01) ==
LOC: EMR 04:31
PROVIDERS: EMERGENCY PHYSICIAN Emergency Medicine; FAMILY PHYSICIAN Family Medicine
DX: K29.00 Acute gastritis without bleeding (principal); R07.2 Precordial pain; R10.10 Upper abdominal pain, unspecified; R11.2 Nausea with vomiting, unspecified; R19.7 Diarrhea, unspecified; K21.9 Gastro-esophageal reflux disease without esophagitis; Z91.148 Patient's other noncompliance with medication regimen for other reason; D64.9 Anemia, unspecified; I10 Essential (primary) hypertension; K44.9 Diaphragmatic hernia without obstruction or gangrene; K52.9 Noninfective gastroenteritis and colitis, unspecified; M19.90 Unspecified osteoarthritis, unspecified site; F41.9 Anxiety disorder, unspecified; G43.909 Migraine, unspecified, not intractable, without status migrainosus; F10.10 Alcohol abuse, uncomplicated; F13.11 Sedative, hypnotic or anxiolytic abuse, in remission; Z85.828 Personal history of other malignant neoplasm of skin; Z87.891 Personal history of nicotine dependence; Z87.11 Personal history of peptic ulcer disease; Z90.49 Acquired absence of other specified parts of digestive tract
CPT/HCPCS: 99284; 96365; 96375 ×3; 80053; 82077; 83690; 84484; 85025; 93005

== ENCOUNTER 2024-02-17 22:53 | Observation (INO) | payer MEDICARE, SELFPAY ==
[2024-02-17 18:21] VITALS: BP 142/113; BMI 23.6
--- NOTE | 2024-02-17 19:59 | ED.GENMED ---
History of Present Illness
General
Chief Complaint: Chest Pain
Source: patient
Exam Limitations: none
Time Seen by Provider: 02/17/24 18:20
Travel History
Have you had any contact with someone who has COVID-19?: No
Do you have any symptoms of coronavirus? Fever > 100 degrees, chills, cough, shortness of breath, sore throat, loss of taste or smell, muscle aches, or headache?: No
History of Present Illness
History of Present Illness:
68-year-old female nausea vomiting some diarrhea started yesterday. Persistent throughout the day. Also then developed some chest pain earlier today. Chest pain is mostly resolved mostly complaining of diffuse abdominal pain with nausea and
vomiting. This has been a recurring issue.
Past History
Past History
ED Past Medical History: Cancer (Skin Cancer face), GERD, HTN, Psychiatric (Anxiety), Other (GI bleeding, HIatal hernia. Ulcers, anemia. Migraine headaches) and Other (recent colitis November/December 2023, severe esophagitis, alcohol abuse,
benzodiazepine withdrawal)
ED Past Surgical History: Appendectomy, Cholecystectomy, Gynecological (hysterectomy, RUE epicondylitis X 2) and Orthopedic
Patient has exhibited threatening behavior?: No
PSI?: No
Social History
Tobacco: Former smoker
Alcohol: Binge drinker
Drug: None and Other (History of benzodiazepine abuse)
Personal:
Living: alone
Family History
Family History: Other (Noncontributory)
Review of Systems
Review of Systems
All Other Systems: Not applicable
Constitutional: Denies fever
Respiratory: Reports no symptoms
: Reports no symptoms
Phy Exam
Physical Exam
Physical Exam:
GENERAL: Alert and oriented in no apparent distress. Somewhat chronically ill-appearing. Holding a emesis bag
EYE: Orbits normal.
NECK: Supple, no significant adenopathy.
ENT: Pharynx without erythema
CARDIAC: Regular rate and rhythm without any obvious murmurs.
LUNGS: Clear breath sounds,normal
ABDOMEN: Soft, bowel sounds present. Diffuse nonlocalizing tenderness mostly epigastric and diffuse lower abdomen. No rebound or guarding no mass or hernia
NEUROLOGICAL: Alert and oriented , grossly non-focal
SKIN: Warm and dry, no rash or lesion, no discoloration, skin intact.
MUSCULOSKELETAL: No edema,no deformity.Good color
PSYCH: Normal and appropriate interaction.
Scores
Heart Score for Chest Pain Patients
STEMI patient?: Not applicable
Course
Orders/Labs/Results
Orders:
Orders
02/17/24 18:20
EKG [Electrocardiogram (*1)] Urgent
Reason for Study: Chest Pain
EKG- Treatment ONCE
02/17/24 18:40
Cardiac Monitoring- Treatment ONCE
IV Insert/Care/Rem.- Treatment PRN
0.9% Sodium Chloride 500 ml [Nss] 500 ml IV BOLUS
Pulse Ox/cont/shift [RESP] Stat
Quantity: 1
02/17/24 18:41
STOOL [C difficile Antigen & Toxins] Urgent
ANITRA Source: Feces/Stool
Specimen Description:
Stool Culture Urgent
ANITRA Source: Feces/Stool
Specimen Description:
02/17/24 18:42
Ondansetron Injectable [Zofran] 4 mg IV NOW STA
Pantoprazole [Protonix IV] 40 mg IV NOW STA
02/17/24 18:43
CT Abd/Pel (IV only)-DH only Urgent
Comment:
Reason For Exam: Acute onset lower abdominal pain
02/17/24 20:04
Alcohol Urgent
Complete Blood Count/No Diff Urgent
Comprehensive Metabolic Panel Urgent
Lipase Urgent
Troponin I Urgent
02/17/24 21:23
Diphenhydramine [Benadryl] 25 mg IV NOW STA
Prochlorperazine [Compazine] 10 mg IV NOW STA
Abnormal Lab Results
02/17/24
20:04
RBC 3.44 L 10^6/uL
(4.20-5.40)
Hgb 11.5 L g/dL
(12.0-16.0)
Hct 32.7 L %
(37.0-47.0)
MCH 33.4 H pg
(27.0-31.0)
RDW 14.6 H %
(11.5-14.5)
Carbon Dioxide 21 L mmol/L
(22-30)
Glucose 118 H mg/dl
(70-99)
02/17/24 20:04
02/17/24 20:04
Vital Signs
Initial and Last Documented VS:
Initial Vital Signs
Temp Pulse Resp BP Pulse Ox
98.7 F 73 19 142/113 97
02/17/24 18:21 02/17/24 18:21 02/17/24 18:21 02/17/24 18:21 02/17/24 18:21
Last Documented Vital Signs
Temp Pulse Resp BP Pulse Ox
98.7 F 67 22 142/73 99
02/17/24 18:21 02/17/24 22:15 02/17/24 22:15 02/17/24 22:00 02/17/24 22:15
MDM/Problems Addressed
Differential Diagnosis Includes:
Doubt primary cardiac issue. This appears to be more of an abdominal process. However cardiac testing will be done for completeness. With her moderate tenderness by exam warrants a CT scan. She did have 1 done a couple months ago. She had a
recent colonoscopy showing multiple polyps but unremarkably otherwise history of esophagitis. EGD showed congestive gastropathy with erythematous changes
*Radiology
Radiology exam reviewed: radiology read reviewed (No acute findings on CT)
*Pulse Oximetry
Patient hypoxic: no
*EKG
Interpreted by ED Provider?: Yes
Interpretation: abnormal
Comparison EKG: no changes
Heart Rate: 69
Rate: normal
Rhythm: sinus
[place]: normal axis
Interval: normal interval
QRS Pattern: left vent hypertrophy
Ischemia: non-specific ST changes
*Screen Printing Machine Operator Interpretation
Rate: normal
Interpretation: normal
Heart Rate: 88
Rhythm: sinus
*Critical Care Note
Total Time (30-74mins, 75-104mins- exclusive of procedures): Not Applicable
Data Reviewed
Review of Other/Old Records Reveals: Labs, Records, Radiology Studies and Testing
Update Note
Update Note:
Patient with intractable nausea and vomiting. Will admit for further care
ED Attending Note
-
Portions of this chart may have been created with voice recognition software.� Occasional wrong word or��sound alike� substitutions may have occurred due to the inherent limitations of voice recognition software.
Discharge Plan
Departure
Patient Disposition: Admit
Date of Disposition: 02/17/24
Time of Disposition: 22:18
Presentation/result/management discussed w/ accepting MD/DO: Hospitalist
Discharge Problem:
Intractable nausea and vomiting, Anterior chest pain
Prescriptions:
No Action
duloxetine 20 mg Capsule,Delayed Release(Dr/Ec)
20 mg PO DAILY Qty: 30 0RF
folic acid 1 mg Tablet
1 mg PO DAILY Qty: 30 0RF
thiamine HCl (vitamin B1) 100 mg Tablet
100 mg PO DAILY Qty: 30 0RF
cholecalciferol (vitamin D3) 125 mcg (5,000 unit) Tablet
125 mcg PO DAILY Qty: 30 0RF
cholestyramine-aspartame [Cholestyramine Light] 4 gram Powder In Packet
1 ea PO DAILY Qty: 60 0RF
Saccharomyces boulardii 250 mg Capsule
250 mg PO BID 30 Days Qty: 60 0RF
famotidine 40 mg Tablet
40 mg PO HS
sumatriptan succinate 50 mg Tablet
0 mg PO .COMPLEX
Rx Instructions:
01/12/2024, take 1 tab at onset of headache; if no relief may repeat 1 tab after at least 2 hrs; max = 4 tabs/24 hr.
prochlorperazine maleate 10 mg Tablet
10 mg PO DAILYPRN PRN (Reason: migraine)
propranolol 10 mg Tablet
10 mg PO BID
nitroglycerin 0.4 mg Tablet, Sublingual
0.4 mg SUBLINGUAL [id number] PRN (Reason: chest pain)
alum-mag hydroxide-simeth 200-200-20 mg/5 mL Suspension
10 - 20 ml PO ACHS PRN (Reason: heartburn)
zinc oxide-vitamin B5-vit E 11.3 % Cream
1 applic TOPICAL DIRECTED
Gas Relief (simethicone) 250 mg Capsule
250 mg PO DIRECTED
lorazepam 0.5 mg Tablet
0.5 mg PO HS
Patient Comments:
01/12/2024, last filled on 11/15/2023 for 7 tablets per PDMP.
ondansetron HCl 4 mg tablet
4 mg PO Q8H PRN (Reason: nausea and vomiting) 5 Days Qty: 14 0RF
pantoprazole 40 mg Tablet,Delayed Release (Dr/Ec)
40 mg PO DAILY Qty: 0 0RF
famotidine 40 mg tablet
40 mg PO HS Qty: 30 3RF
pantoprazole [Protonix] 40 mg tablet,delayed release (DR/EC)
40 mg PO DAILY Qty: 30 3RF
sucralfate [Carafate] 100 mg/mL suspension
10 ml PO QID PRN (Reason: upper abdominal pain) Qty: 400 0RF
Referrals:
Ishaan Ames DO [Family Provider] -
Interventions
Interventions:
*Risk Screen - Suicide Last Done: 02/17/24 18:21
*General Assessment Last Done: 02/17/24 18:21
*Neglect/Abuse Screening Last Done: 02/17/24 18:21
*ED COVID-19 Vaccine History Last Done: 02/17/24 18:21
ED- Cardiac Assessment Last Done: 02/17/24 19:18
Discharge Date and Time
Print Language: WELSH
[2024-02-17 20:10] LABS: Hematocrit 32.7 % (37.0-47.0); Hemoglobin 11.5 g/dL (12.0-16.0); Mean Corp Hgb Conc. 35.2 g/dL (33.0-37.0); Mean Corpuscular Hgb 33.4 pg (27.0-31.0); Mean Corpuscular Volume 95.1 fL (81.0-99.0); Mean Platelet Volume 9.6 fL (7.4-10.4); Platelet Count 350 10^3/uL (130-400); Red Blood Cell Count 3.44 10^6/uL (4.20-5.40); Red Cell Dist. Width 14.6 % (11.5-14.5); White Blood Cell Count 8.9 10^3/uL (4.8-10.8)
[2024-02-17] MEDS: NSS 500 IV (20:10)
[2024-02-17] MEDS: ZOFRAN 4 MG IV (20:11)
[2024-02-17] MEDS: PROTONIX IV 40 MG IV (20:11)
[2024-02-17 20:16] VITALS: BP 150/115
[2024-02-17 20:17] VITALS: BP 150/115
[2024-02-17 20:30] LABS: ALT (SGPT) 21 U/L (0-35); Blood Urea Nitrogen 15 mg/dl (7-17); Calcium 8.7 mg/dl (8.4-10.2); Carbon Dioxide 21 mmol/L (22-30); Chloride 100 mmol/L (98-107); Estimated Creatinine Clearance 47 ml/min; Glucose 118 mg/dl (70-99); Sodium 136 mmol/L (135-145); Total Bilirubin 0.9 mg/dl (0.2-1.3); eGFR > 60.00
[2024-02-17 20:36] LABS: Troponin I < 0.012 ng/ml
[2024-02-17 21:09] LABS: AST (SGOT) 35 U/L (14-36); Albumin 4.2 g/dl (3.5-5.0); Alkaline Phosphatase 120 U/L (38-126); Potassium 3.6 mmol/L (3.5-5.1); Total Protein 7.1 g/dl (6.3-8.2)
[2024-02-17 21:11] LABS: Lipase 126 U/L (23-300)
[2024-02-17 21:12] LABS: Alcohol None Detected
[2024-02-17 21:14] VITALS: BP 155/92
[2024-02-17] MEDS: BENADRYL 25 MG IV (21:33)
[2024-02-17] MEDS: COMPAZINE 10 MG IV (21:33)
[2024-02-17 22:00] VITALS: BP 142/73
--- NOTE | 2024-02-17 22:33 | HPS.HSE ---
Family Physician
-
Family Physician: Ishaan Ames
Chief Complaint
-
abdominal pain
History of Present Illness
68-year-old female past medical history of C. difficile antigen positivity, GERD/esophagitis, hiatal hernia, peptic ulcer with prior bleeding, IBS, alcohol use disorder, suspected gout, anxiety, hypertension, presenting for epigastric abdominal pain
rating to the chest, nausea, vomiting and some diarrhea starting yesterday. She developed chest pain earlier today. Chest pain is mostly resolved but she is complaining of diffuse abdominal pain with nausea and vomiting. Patient has been admitted
several times for same symptoms. She states that she last drank alcohol 3 days ago which was a blood Ivette. She has still been noncompliant with her GI meds because she is forgetting to take them.
Patient was recently seen from 01/15 to 01/20 for persistent epigastric pain secondary to alcohol induced gastritis versus esophagitis/GERD. She underwent EGD and colonoscopy which showed congestive gastropathy and erythematous mucosa in the antrum
and normal duodenum. He was found to have multiple sessile polyps that were removed.
She was found to be positive for C. difficile antigen but toxin negative during her recent admission previously and completed vancomycin/Dificid.
Medical History
Past Medical History
Past Medical History: Reports Other ( C. difficile antigen positivity, GERD/esophagitis, hiatal hernia, peptic ulcer with prior bleeding, IBS, alcohol use disorder, suspected gout, anxiety, hypertension,)
Past Surgical History: Reports Other (Appendectomy, Cholecystectomy, Gynecological (hysterectomy, RUE epicondylitis X 2) and Orthopedic)
Social History
Tobacco: Non-smoker
Alcohol: Occasional
Drug: None
Family History
Family History: Not pertinent
Allergies / Home Medications
Allergies reflects when Allergies were last updated in [facility].
Home Medications with original date entered in [facility]
Allergy/Medication List:
Allergies
Allergy/AdvReac Type Severity Reaction Status Date / Time
aspirin Allergy Unknown Verified 02/17/24 18:28
gabapentin Allergy Unknown Verified 02/17/24 18:28
NSAIDS (Non-Steroidal Allergy Unknown Verified 02/17/24 18:28
Anti-Inflamma
[id number] Reductase Allergy Swelling Verified 02/17/24 18:28
Inhibitor
Sulfa (Sulfonamide Allergy Unknown Verified 02/17/24 18:28
Antibiotics)
Home Medications
cholecalciferol (vitamin D3) 125 mcg (5,000 unit) tablet 125 mcg PO DAILY #30 tabs 12/26/23
duloxetine 20 mg capsule,delayed release 20 mg PO DAILY #30 caps 12/26/23
folic acid 1 mg tablet 1 mg PO DAILY #30 tabs 12/26/23
thiamine HCl (vitamin B1) 100 mg tablet 100 mg PO DAILY #30 tabs 12/26/23
cholestyramine-aspartame 4 gram oral powder for susp in a packet (Cholestyramine Light) 1 ea PO DAILY #60 ea 12/30/23
Saccharomyces boulardii 250 mg capsule 250 mg PO BID 30 days #60 caps 01/10/24
aluminum-mag hydroxide-simethicone 200 mg-200 mg-20 mg/5 mL oral susp 10 - 20 ml PO ACHS PRN heartburn 01/12/24
famotidine 40 mg tablet 40 mg PO HS GERD 01/12/24
lorazepam 0.5 mg tablet 0.5 mg PO HS Anxiety 01/12/24
nitroglycerin 0.4 mg sublingual tablet 0.4 mg sublingual [id number] PRN chest pain 01/12/24
ondansetron HCl 4 mg tablet 4 mg PO Q8H PRN nausea and vomiting 5 days #14 tabs 01/12/24
prochlorperazine maleate 10 mg tablet 10 mg PO DAILYPRN PRN migraine 01/12/24
propranolol 10 mg tablet 10 mg PO BID Blood Pressure 01/12/24
simethicone 250 mg capsule (Gas Relief (simethicone)) 250 mg PO DIRECTED Gas relief 01/12/24
sumatriptan succinate 50 mg tablet 0 mg PO .COMPLEX Migraine 01/12/24
zinc oxide-vitamin B5-vit E 11.3% topical cream 1 applic topical DIRECTED Skin Issues 01/12/24
pantoprazole 40 mg tablet,delayed release 40 mg PO DAILY #0 tabs 01/21/24
famotidine 40 mg tablet 40 mg PO HS #30 tabs 02/13/24
pantoprazole 40 mg tablet,delayed release (Protonix) 40 mg PO DAILY #30 tabs 02/13/24
sucralfate 100 mg/mL oral suspension (Carafate) 10 ml PO QID PRN upper abdominal pain #400 mL 02/13/24
Review of Systems
-
History Source: Patient
A 12 point ROS was completed and negative except as noted: Yes
Constitutional: Reports No Symptoms
EENT: Reports No Symptoms
Respiratory: Reports No Symptoms
Cardiac: Reports No Symptoms
Abdomen/GI: Reports See HPI
: Reports No Symptoms
Musculoskeletal: Reports No Symptoms
Skin: Reports No Symptoms
Neurological: Reports No Symptoms
Endocrine: Reports No Symptoms
Hematologic/Lymphatic: Reports No Symptoms
Psych: Reports No Symptoms
Physical Exam
Vital Signs
Vital Signs
Temp Pulse Resp BP Pulse Ox
98.7 F 67 22 142/73 99
02/17/24 18:21 02/17/24 22:15 02/17/24 22:15 02/17/24 22:00 02/17/24 22:15
Physical Exam
General: Well Developed, Well Nourished and No Apparent Distress
HEENT: NormoCephalic, Moist mucous membranes and Atraumatic
Respiratory: Clear
Cardiac: S1/S2 and Regular Rhythm; No Murmur or Rub
GI: Soft, Non Distended, Normal Bowel Sounds and Tender (epigastric ); No Organomegaly
Rectal: Deferred by Provider
Musculoskeletal: No Clubbing, No Cyanosis and No Edema
Skin: No Rash
Neuro: Nonfocal/grossly intact
Laboratory Results
-
02/17/24 20:04
02/17/24 20:04
Laboratory Results
Total Bilirubin 0.9 mg/dl (0.2-1.3) 02/17/24 20:04
AST 35 U/L (14-36) 02/17/24 20:04
ALT 21 U/L (0-35) 02/17/24 20:04
Alkaline Phosphatase 120 U/L (38-126) 02/17/24 20:04
Troponin I < 0.012 ng/ml 02/17/24 20:04
Lipase 126 U/L (23-300) 02/17/24 20:04
Data Reviewed
-
Lab Data: Labs Reviewed by me
Old Records: Reviewed
Impression/Plan
-
IMPRESSION:
PLAN:
# Recurrent epigastric pain likely due to gastritis/esophagitis/GERD from alcohol use/noncompliance with GI meds
# History of esophagitis/peptic ulcer
# History of hiatal hernia
-CT abdomen pelvis shows mild diverticulosis but no other focal finding
-N.p.o.
-IV fluids
-Continue Mylanta
-Continue Protonix twice daily
-Continue Pepcid
-Continue sucralfate
-Zofran, prochlorperazine
-GI recommended repeat colonoscopy in 6 months, no need to consult them at this time
# History of alcohol use disorder
-Last drink 3 days ago
-Alcohol level negative
-Not currently in withdrawal
-IV fluids
-Continue folic acid, thiamine
#History of diarrhea predominant IBS
-Continue cholestyramine
Recent C. difficile antigen positive/toxin negativity status post Dificid
-Completed Dificid
Chronic anemia
-Hemoglobin stable
History of recent suspected gout of right ankle
Essential hypertension
-Continue propranolol
Vitamin D deficiency
History of cholecystectomy chronically dilated CBD
Anxiety/depression
-Continue duloxetine, Ativan
Full code
DVT prophylaxis�SCDs
N.p.o.
[2024-02-18] MEDS: NSS 1000 IV ×3 (00:25→21:52)
[2024-02-18 00:28] VITALS: BMI 22.8
[2024-02-18] MEDS: ZOFRAN 4 MG IV ×2 (00:35→12:48)
[2024-02-18 00:37] VITALS: BP 146/78
[2024-02-18] MEDS: MYLICON 80 MG PO (01:34)
[2024-02-18 07:00] VITALS: BP 135/67
[2024-02-18] MEDS: VITAMIN B1 100 MG PO (07:57)
[2024-02-18] MEDS: FLORASTOR 250 MG PO ×2 (07:57→21:50)
[2024-02-18] MEDS: VITAMIN D3 (cholecalciferol) 125 MCG PO (07:58)
[2024-02-18] MEDS: INDERAL 10 MG PO ×2 (07:58→21:51)
[2024-02-18] MEDS: FOLVITE 1 MG PO (07:58)
[2024-02-18] MEDS: CYMBALTA DELAYED RELEASE 20 MG PO (07:59)
[2024-02-18] MEDS: QUESTRAN 4 GRAM PO (08:08)
[2024-02-18 08:18] LABS: % Basophils 0.6 % (0-2); % Eosinophils 5.1 % (0-6); % Immature Granulocytes 0.5 % (0-0.5); % Lymphocytes 21.3 % (20.5-51.1); % Monocytes 6.9 % (1.7-9.3); % Neutrophils 65.6 % (42.2-75.2); Absolute Basophils 0.1 10^3/uL (0-0.2); Absolute Eosinophils 0.5 10^3/uL (0-0.7); Absolute Immature Granulocytes 0.1 10^3/uL (0-0.05); Absolute Monocytes 0.6 10^3/uL (0.1-0.6); Absolute Neutrophils 6.1 10^3/uL (1.4-6.5); Hematocrit 28.9 % (37.0-47.0); Mean Corp Hgb Conc. 34.6 g/dL (33.0-37.0); Mean Corpuscular Hgb 32.4 pg (27.0-31.0); Mean Corpuscular Volume 93.5 fL (81.0-99.0); Mean Platelet Volume 9.7 fL (7.4-10.4); Nucleated Red Blood Cells % 0 %; Platelet Count 267 10^3/uL (130-400); Red Blood Cell Count 3.09 10^6/uL (4.20-5.40); Red Cell Dist. Width 14.8 % (11.5-14.5); White Blood Cell Count 9.3 10^3/uL (4.8-10.8)
[2024-02-18 08:44] LABS: ALT (SGPT) 16 U/L (0-35); AST (SGOT) 29 U/L (14-36); Albumin 3.3 g/dl (3.5-5.0); Alkaline Phosphatase 106 U/L (38-126); Blood Urea Nitrogen 9 mg/dl (7-17); Calcium 8.4 mg/dl (8.4-10.2); Carbon Dioxide 24 mmol/L (22-30); Chloride 106 mmol/L (98-107); Estimated Creatinine Clearance 47 ml/min; Glucose 92 mg/dl (70-99); Potassium 3.4 mmol/L (3.5-5.1); Sodium 141 mmol/L (135-145); Total Bilirubin 1.3 mg/dl (0.2-1.3); Total Protein 5.8 g/dl (6.3-8.2); eGFR > 60.00
[2024-02-18 09:20] LABS: Hepatitis C Antibody Reactive (Negative)
[2024-02-18] MEDS: PROTONIX IV 40 MG IV ×2 (10:23→21:52)
[2024-02-18] MEDS: NSS (PRESERVATIVE FREE) 10 ML IV ×2 (10:23→21:52)
--- NOTE | 2024-02-18 11:00 | VATNOTE ---
Attempts x 2 to restart IV unsuccessful , another VAT nurse to try.
--- NOTE | 2024-02-18 11:15 | CM ---
Patient seen bedside.
Lives with friend in a 1 story home.
Patient has a walker, but is independent with ambulation.
Patient has been to [facility] in the past, denies VN.
Patient currently NPO.
STARK completed.
PMD: Dr Ames
Pharmacy: [facility]
Plan: home no needs.
--- NOTE | 2024-02-18 14:46 | W.PN.HOSP.TC ---
Today's Communication/Plan
-
Start on diet
DC once tolerating diet
Assessment / Plan
Assessment / Plan
# Recurrent epigastric pain likely due to gastritis/esophagitis/GERD from alcohol use/noncompliance with GI meds
# History of esophagitis/peptic ulcer
# History of hiatal hernia
-CT abdomen pelvis shows mild diverticulosis but no other focal finding
- Start on diet and advance as tolerated; dc iv fluids once taking po
-Continue Mylanta
-Continue Protonix twice daily
-Continue Pepcid
-Continue sucralfate
-Zofran, prochlorperazine
-GI recommended repeat colonoscopy in 6 months
# History of alcohol use disorder
-Last drink 3 days ago
-Alcohol level negative
-Not currently in withdrawal
-Continue folic acid, thiamine
#History of diarrhea predominant IBS
-Continue cholestyramine
Recent C. difficile antigen positive/toxin negativity status post Dificid
-Completed Dificid
Chronic anemia
-Hemoglobin stable
History of recent suspected gout of right ankle
Essential hypertension
-Continue propranolol
Vitamin D deficiency
History of cholecystectomy chronically dilated CBD
Anxiety/depression
-Continue duloxetine, Ativan
Full code
DVT prophylaxis�SCDs
Anticipated Discharge: Within 24 hours
Subjective/Interval History
-
Date of Service: February 18, 2024
No nausea today no abdominal pain. Has an appetite for food today.
No fever or chills.
Objective Data
-
Labs:
Laboratory Results
02/18/24
07:57
WBC 9.3
Hgb 10.0 L
Hct 28.9 L
Plt Count 267 D
Sodium 141
Potassium 3.4 L
Chloride 106
Carbon Dioxide 24
BUN 9
Creatinine 1.0
Glucose 92
Calcium 8.4
Total Bilirubin 1.3
AST 29
ALT 16
Alkaline Phosphatase 106
Vital Signs:
Vital Signs
Temp Pulse Resp BP Pulse Ox
98.3 F 67 16 135/67 99
02/18/24 07:00 02/18/24 07:00 02/18/24 07:00 02/18/24 07:00 02/18/24 08:00
I&O
02/17/24 02/18/24 02/19/24
06:59 06:59 06:59
Intake Total 240 / 240
Balance 240 / 240
Review of Systems
-
Respiratory: Denies Trouble Breathing
Cardiac: Denies Chest Pain
Abdomen/GI: Denies Diarrhea
Neuro: Denies Dizzy
Physical Exam
-
General: No Apparent Distress
HEENT: Moist Mucous Membranes
Respiratory: Clear to Auscultation
Cardiac: Regular Rhythm and S1/S2
GI: Soft, Nontender, Nondistended and Normal Bowel Sounds
Neuro: AO x 3
Data Reviewed
-
Labs: Labs Reviewed by me
[2024-02-18 15:00] VITALS: BP 151/60
[2024-02-18] MEDS: KCL 40 MEQ PO (15:48)
[2024-02-18] MEDS: CARAFATE SUSPENSION 1 GM PO (22:16)
[2024-02-18 23:00] VITALS: BP 136/70
[2024-02-18] MEDS: PEPCID 40 MG PO (23:16)
[2024-02-18] MEDS: ATIVAN 0.5 MG PO (23:16)
[2024-02-19 07:30] VITALS: BP 150/90
[2024-02-19] MEDS: FLORASTOR 250 MG PO (08:10)
[2024-02-19] MEDS: NSS 1000 IV (08:10)
[2024-02-19] MEDS: CYMBALTA DELAYED RELEASE 20 MG PO (08:10)
[2024-02-19] MEDS: VITAMIN B1 100 MG PO (08:10)
[2024-02-19] MEDS: INDERAL 10 MG PO (08:11)
[2024-02-19] MEDS: PROTONIX IV 40 MG IV (08:11)
[2024-02-19] MEDS: FOLVITE 1 MG PO (08:11)
[2024-02-19] MEDS: NSS (PRESERVATIVE FREE) 10 ML IV (08:11)
[2024-02-19] MEDS: VITAMIN D3 (cholecalciferol) 125 MCG PO (08:11)
[2024-02-19] MEDS: QUESTRAN 4 GRAM PO (08:12)
--- NOTE | 2024-02-19 10:14 | W.PN.HOSP.TC ---
Today's Communication/Plan
-
DC
Assessment / Plan
Assessment / Plan
# Recurrent epigastric pain likely due to gastritis/esophagitis/GERD from alcohol use/noncompliance with GI meds
# History of esophagitis/peptic ulcer
# History of hiatal hernia
-CT abdomen pelvis shows mild diverticulosis but no other focal finding
- Tolerating on liquid diet. Start on the regular solid diet for lunch.
-Continue Mylanta
-Continue Protonix twice daily
-Continue Pepcid
-Continue sucralfate
-Zofran, prochlorperazine
-GI recommended repeat colonoscopy in 6 months
# History of alcohol use disorder
-Last drink 3 days ago
-Alcohol level negative
-Not currently in withdrawal
-Continue folic acid, thiamine
- Advised to quit alcohol
#History of diarrhea predominant IBS
-Continue cholestyramine
Recent C. difficile antigen positive/toxin negativity status post Dificid
-Completed Dificid
Chronic anemia
-Hemoglobin stable
History of recent suspected gout of right ankle
Essential hypertension
-Continue propranolol
Vitamin D deficiency
History of cholecystectomy chronically dilated CBD
Anxiety/depression
-Continue duloxetine, Ativan
Full code
DVT prophylaxis�SCDs
DC home if she tolerates diet today. Stressed about the importance of compliance with the medication to prevent recurrent symptoms and admissions to the hospital.
Anticipated Discharge: Today
Subjective/Interval History
-
Date of Service: February 19, 2024
tolerating clear liquid diet without nausea vomiting.
No diarrhea.
Objective Data
-
Vital Signs:
Vital Signs
Temp Pulse Resp BP Pulse Ox
98.5 F 72 18 150/90 98
02/19/24 07:30 02/19/24 07:30 02/19/24 07:30 02/19/24 07:30 02/19/24 07:30
I&O
02/18/24 02/19/24 02/20/24
06:59 06:59 06:59
Intake Total 840 / 840 2340 / 2340
Balance 840 / 840 2340 / 2340
Review of Systems
-
Constitutional: Denies Fever
Respiratory: Denies Trouble Breathing
Cardiac: Denies Chest Pain
Neuro: Denies Dizzy
Physical Exam
-
General: No Apparent Distress
HEENT: Moist Mucous Membranes
Respiratory: Clear to Auscultation
Cardiac: Regular Rhythm and S1/S2
GI: Soft and Nontender
Neuro: AO x 3
Psych: Calm
--- NOTE | 2024-02-19 10:19 | W.DS.TRANS ---
DC Summary - K [facility] Principal
-
Discharge Instructions:
Discharge Diagnosis/Procedures # Recurrent epigastric pain likely due to
gastritis/esophagitis/GERD from alcohol use/
noncompliance with GI meds
Diet Regular
Activity As tolerated
Driving Restrictions As prior to admission
Bathing Restrictions None
Instructions:
Stand-Alone Forms:
Changes to Home Medications: No
Discharge Medications:
DC Medications w/original date entered in [employer] [facility]
cholecalciferol (vitamin D3) 125 mcg (5,000 unit) tablet 125 mcg PO DAILY #30 tabs 12/26/23
duloxetine 20 mg capsule,delayed release 20 mg PO DAILY #30 caps 12/26/23
folic acid 1 mg tablet 1 mg PO DAILY #30 tabs 12/26/23
thiamine HCl (vitamin B1) 100 mg tablet 100 mg PO DAILY #30 tabs 12/26/23
cholestyramine-aspartame 4 gram oral powder for susp in a packet (Cholestyramine Light) 1 ea PO DAILY #60 ea 12/30/23
Saccharomyces boulardii 250 mg capsule 250 mg PO BID 30 days #60 caps 01/10/24
aluminum-mag hydroxide-simethicone 200 mg-200 mg-20 mg/5 mL oral susp 10 - 20 ml PO ACHS PRN heartburn 01/12/24
famotidine 40 mg tablet 40 mg PO HS GERD 01/12/24
lorazepam 0.5 mg tablet 0.5 mg PO HS Anxiety 01/12/24
nitroglycerin 0.4 mg sublingual tablet 0.4 mg sublingual [id number] PRN chest pain 01/12/24
ondansetron HCl 4 mg tablet 4 mg PO Q8H PRN nausea and vomiting 5 days #14 tabs 01/12/24
prochlorperazine maleate 10 mg tablet 10 mg PO DAILYPRN PRN migraine 01/12/24
propranolol 10 mg tablet 10 mg PO BID Blood Pressure 01/12/24
simethicone 250 mg capsule (Gas Relief (simethicone)) 250 mg PO DIRECTED Gas relief 01/12/24
sumatriptan succinate 50 mg tablet 0 mg PO .COMPLEX Migraine 01/12/24
zinc oxide-vitamin B5-vit E 11.3% topical cream 1 applic topical DIRECTED Skin Issues 01/12/24
pantoprazole 40 mg tablet,delayed release 40 mg PO DAILY #0 tabs 01/21/24
sucralfate 100 mg/mL oral suspension (Carafate) 10 ml PO QID PRN upper abdominal pain #400 mL 02/13/24
Home Medication Changes
Pending Results: No
[2024-02-19 12:20] VITALS: BP 138/78
--- NOTE | 2024-02-20 18:09 | W.DCSUMMARY ---
Discharge Summary
Discharge Data
Date of Admission: 02/17/24
Date of Discharge: 02/19/24
-
Pending Results: No
Hospital Course
Primary diagnosis:
Recurrent epigastric pain likely due to gastritis/esophagitis/Gastroesophageal reflux disease from alcohol use/noncompliance with gastrointestinal medication.
Secondary diagnosis:
History of esophagitis/peptic ulcer
History of hiatal hernia
History of alcohol use disorder
History of diarrhea predominant irritable bowel syndrome
Chronic anemia
Recent C. difficile antigen positive/toxin negativity status post Dificid
Essential hypertension
Hospital course:
Patient with a past medical history of C. difficile antigen positivity, GERD, esophagitis, hiatus hernia, peptic ulcer disease, irritable bowel syndrome and alcohol use disorder presents with epigastric abdominal discomfort with nausea vomiting and
apparently some diarrhea. She has recurrent issues and admissions with GI symptoms. She is not only noncompliant with her medication she also has alcohol use disorder. She was recently here in December for persistent epigastric pain secondary to
alcohol induced gastritis versus esophagitis/GERD. She during that admission underwent an endoscopy and colonoscopy which showed congestive gastropathy.
She has CT of the abdomen pelvis on this admission which showed no acute inflammatory process within the abdomen or pelvis.
She was treated symptomatically with reintroducing all her outpatient GI medications which resolved her symptoms. She was tolerating a diet prior to discharge. She was advised to be compliant with her medications and follow-up with the physicians.
Discharge Plan
-
Patient Disposition: Home (Routine Discharge)
Discharge Diagnosis/Procedures: # Recurrent epigastric pain likely due to gastritis/esophagitis/GERD from alcohol use/noncompliance with GI meds
Condition: Good
Diet: Regular
Activity: As tolerated
Driving Restrictions: As prior to admission
Bathing Restrictions: None
Referrals:
Ishaan Ames DO [Family Provider] - in less than 1 week
Prescriptions:
Continued
duloxetine 20 mg Capsule,Delayed Release(Dr/Ec)
20 mg PO DAILY Qty: 30 0RF
folic acid 1 mg Tablet
1 mg PO DAILY Qty: 30 0RF
thiamine HCl (vitamin B1) 100 mg Tablet
100 mg PO DAILY Qty: 30 0RF
cholecalciferol (vitamin D3) 125 mcg (5,000 unit) Tablet
125 mcg PO DAILY Qty: 30 0RF
cholestyramine-aspartame [Cholestyramine Light] 4 gram Powder In Packet
1 ea PO DAILY Qty: 60 0RF
Saccharomyces boulardii 250 mg Capsule
250 mg PO BID 30 Days Qty: 60 0RF
famotidine 40 mg Tablet
40 mg PO HS
sumatriptan succinate 50 mg Tablet
0 mg PO .COMPLEX
Rx Instructions:
01/12/2024, take 1 tab at onset of headache; if no relief may repeat 1 tab after at least 2 hrs; max = 4 tabs/24 hr.
prochlorperazine maleate 10 mg Tablet
10 mg PO DAILYPRN PRN (Reason: migraine)
propranolol 10 mg Tablet
10 mg PO BID
nitroglycerin 0.4 mg Tablet, Sublingual
0.4 mg SUBLINGUAL [id number] PRN (Reason: chest pain)
alum-mag hydroxide-simeth 200-200-20 mg/5 mL Suspension
10 - 20 ml PO ACHS PRN (Reason: heartburn)
zinc oxide-vitamin B5-vit E 11.3 % Cream
1 applic TOPICAL DIRECTED
Gas Relief (simethicone) 250 mg Capsule
250 mg PO DIRECTED
lorazepam 0.5 mg Tablet
0.5 mg PO HS
Patient Comments:
01/12/2024, last filled on 11/15/2023 for 7 tablets per PDMP.
ondansetron HCl 4 mg tablet
4 mg PO Q8H PRN (Reason: nausea and vomiting) 5 Days Qty: 14 0RF
pantoprazole 40 mg Tablet,Delayed Release (Dr/Ec)
40 mg PO DAILY Qty: 0 0RF
sucralfate [Carafate] 100 mg/mL suspension
10 ml PO QID PRN (Reason: upper abdominal pain) Qty: 400 0RF
Discontinued
famotidine 40 mg tablet
40 mg PO HS Qty: 30 3RF
pantoprazole [Protonix] 40 mg tablet,delayed release (DR/EC)
40 mg PO DAILY Qty: 30 3RF
Discharge Orders:
Discharge Patient (As Directed); Ordered 02/19/24
Ordered By: Manny Del Angel
Discharge Date and Time
Discharge Date/Time: 02/19/24 12:42
Print Language: [id number]
== END 2024-02-19 12:42 | disposition home or self-care (01) ==
LOC: 4 WEST ACU 22:53
PROVIDERS: ADMITTING PHYSICIAN Hospitalist; ATTENDING PHYSICIAN Internal Medicine; EMERGENCY PHYSICIAN Emergency Medicine; FAMILY PHYSICIAN Family Medicine
DX: K29.20 Alcoholic gastritis without bleeding (principal); R07.89 Other chest pain; R11.2 Nausea with vomiting, unspecified; R19.7 Diarrhea, unspecified; K21.00 Gastro-esophageal reflux disease with esophagitis, without bleeding; E55.9 Vitamin D deficiency, unspecified; D64.9 Anemia, unspecified; F32.A Depression, unspecified; I10 Essential (primary) hypertension; K57.30 Diverticulosis of large intestine without perforation or abscess without bleeding; K44.9 Diaphragmatic hernia without obstruction or gangrene; R10.30 Lower abdominal pain, unspecified; F10.10 Alcohol abuse, uncomplicated; F41.9 Anxiety disorder, unspecified; Z91.148 Patient's other noncompliance with medication regimen for other reason; Z87.891 Personal history of nicotine dependence; Z90.49 Acquired absence of other specified parts of digestive tract; Z90.710 Acquired absence of both cervix and uterus; Z87.19 Personal history of other diseases of the digestive system; Z85.828 Personal history of other malignant neoplasm of skin; Z87.11 Personal history of peptic ulcer disease; Z88.6 Allergy status to analgesic agent; Z88.2 Allergy status to sulfonamides; Z88.8 Allergy status to other drugs, medicaments and biological substances
CPT/HCPCS: 74177; 80053; 82077; 83690; 84484; 85025; 85027; 86803; 93005; 96361; 96374; 96375; 99285; G0378; Q9967

== ENCOUNTER 2024-02-24 21:34 | Inpatient (IN) | payer MEDICARE, SELFPAY ==
[2024-02-24 10:57] VITALS: BP 102/65
--- NOTE | 2024-02-24 13:35 | ED.GENMED ---
History of Present Illness
General
Chief Complaint: Abdominal Symptoms
Source: patient
Exam Limitations: none
Time Seen by Provider: 02/24/24 13:17
Travel History
Have you had any contact with someone who has COVID-19?: No
Do you have any symptoms of coronavirus? Fever > 100 degrees, chills, cough, shortness of breath, sore throat, loss of taste or smell, muscle aches, or headache?: No
History of Present Illness
History of Present Illness:
68-year-old female with history of anxiety, peptic ulcer disease, IBS, anemia, EtOH abuse presenting to the emergency department for abdominal pain. Patient reports symptoms started last evening. Patient reports nausea and vomiting. She did have
1 episode of diarrhea. Denies any fever. Denies chest pain or difficulty breathing. Does note history of abdominal surgery in the past, however is not sure which surgery. Denies any blood in the vomit. Patient seen and evaluated for similar
symptoms in the past, most recently admitted on 02/16 for recurrent epigastric abdominal pain. Patient had CT imaging completed at that time, negative for acute process. Patient was seen by GI, recommended repeat colonoscopy in about 6 months.
Patient known to be noncompliant with her GI medications. Patient denies additional acute medical complaints
Past History
Past History
ED Past Medical History: Cancer (Skin Cancer face), GERD, HTN, Psychiatric (Anxiety), Other (GI bleeding, HIatal hernia. Ulcers, anemia. Migraine headaches) and Other (recent colitis December 2023, severe esophagitis, alcohol abuse,
benzodiazepine withdrawal)
ED Past Surgical History: Appendectomy, Cholecystectomy, Gynecological (hysterectomy, RUE epicondylitis X 2) and Orthopedic
Patient has exhibited threatening behavior?: No
PSI?: No
Social History
Tobacco: Former smoker
Alcohol: Binge drinker
Drug: None and Other (History of benzodiazepine abuse)
Personal:
Living: alone
Family History
Family History: Other (Noncontributory)
Phy Exam
Physical Exam
Physical Exam:
GENERAL: Alert , in no apparent distress
EYE: pupils equal and reactive
NECK: Supple, no significant adenopathy.
ENT: o/p clr, mmm.
CARDIAC: Regular rate and rhythm .
LUNGS: Clear breath sounds bilaterally, no acute respiratory distress, no wheezes/rales/rhonchi
ABDOMEN: Soft, nondistended, mild tenderness to the epigastric abdomen without rebound or guarding
NEUROLOGICAL: Alert and oriented, no focal neuro deficits
SKIN: Warm and dry, skin intact.
MUSCULOSKELETAL: No edema, well perfused.
PSYCH: Normal and appropriate interaction.
Course
Orders/Labs/Results
Orders:
Orders
02/24/24 13:32
0.9% Sodium Chloride 500 ml [Nss] 500 ml IV BOLUS
Iohexol [Omnipaque] See Protocol PO NOW STA
Morphine Sulfate 4 mg IV NOW STA
Ondansetron Injectable [Zofran] 4 mg IV NOW STA
02/24/24 13:36
Famotidine [Pepcid] 20 mg IV NOW STA
02/24/24 14:12
Complete Blood Count/With Diff Urgent
Comprehensive Metabolic Panel Urgent
Lipase Urgent
02/24/24 14:20
Urinalysis Reflex To Culture Stat
Date Specimen was Collected: 02/24/24
Time Specimen was Collected: 14:17
Urine Microscopic Reflex Cult Stat
Urine Culture Stat
ANITRA Source: U
Specimen Description:
Date Specimen was Collected: 02/24/24
Time Specimen was Collected: 14:17
02/24/24 16:29
CT Abd/pel Without Iv Or Oral Urgent
Comment:
Reason For Exam: generalized pain, transaminitis
02/24/24 19:58
Add On- LAB Urgent
Tests Added?: acetaminophen level
Abnormal Lab Results
02/24/24 02/24/24
14:12 14:20
RBC 3.66 L 10^6/uL
(4.20-5.40)
Hct 35.3 L %
(37.0-47.0)
MCH 32.8 H pg
(27.0-31.0)
RDW 15.8 H %
(11.5-14.5)
Absolute Lymphs (auto) 0.9 L 10^3/uL
(1.2-3.4)
Neutrophils % 76.3 H %
(42.2-75.2)
Lymphocytes % 13.7 L %
(20.5-51.1)
Potassium 2.8 L mmol/L
(3.5-5.1)
Carbon Dioxide 20 L mmol/L
(22-30)
BUN 28 H mg/dl
(7-17)
Creatinine 1.9 H mg/dL
(0.6-1.0)
Glucose 138 H mg/dl
(70-99)
Total Bilirubin 1.8 H mg/dl
(0.2-1.3)
AST 873 H* U/L
(14-36)
ALT 299 H U/L
(0-35)
Urine Bilirubin 2+ A
(Negative)
Leukocyte Esterase Rfl 1+ A
(Negative)
Urine Bacteria (Reflex) Few A
(Negative)
Urine Yeast Few A
(Negative)
02/24/24 14:12
02/24/24 14:12
Vital Signs
Initial and Last Documented VS:
Initial Vital Signs
Temp Pulse Resp BP Pulse Ox
98.4 F 60 16 102/65 98
02/24/24 10:57 02/24/24 10:57 02/24/24 10:57 02/24/24 10:57 02/24/24 10:57
Last Documented Vital Signs
Temp Pulse Resp BP Pulse Ox
98.4 F 60 16 102/65 98
02/24/24 10:57 02/24/24 10:57 02/24/24 10:57 02/24/24 10:57 02/24/24 10:57
MDM/Problems Addressed
MDM/Problems Addressed:
68-year-old female with history of IBS, anemia, EtOH abuse, peptic ulcer disease, hiatal hernia presenting to the emergency department for upper abdominal pain with nausea and vomiting. Vital signs on arrival are normal.
On physical exam, patient very well-appearing, no acute distress, resting comfortably. Benign cardiac and pulmonary exam. On abdominal exam, soft nondistended with mild tenderness in the abdomen. On review of EMR, recent hospital admission 02/16
with similar symptom presentation. Patient had CT imaging completed at that time without acute intra-abdominal process. Suspect recurrent gastritis. Lower suspicion for acute intra-abdominal severe process given hemodynamic stability, nontoxic
appearance, benign examination. Plan for screening laboratory analysis. Will treat patient with IV fluids, Zofran, Pepcid. Patient requesting pain medication. Will administer morphine. Will reassess for improvement.
15:30 -labs show acute kidney injury with mild transaminitis and elevated T. bili. For this reason we will proceed with CT imaging for further evaluation.
19:50 -delay in disposition pending CT. CT without acute pathology. On reassessment, patient remained stable, continues to report pain, difficulty tolerating p.o. Does note that 4 days ago she fell onto her left side, took ibuprofen which she was
instructed not to do, believes this may have triggered her symptoms. Additionally, she since been taking a lot of Tylenol. This reason we will add on a Tylenol level. From a trauma perspective, minimal tenderness to the left flank, no bruising or
erythema. No concern for severe traumatic injury. Given failure of outpatient therapy, JULI, acute transaminitis, feel patient warrants admission. Will discuss with hospitalist.
*Critical Care Note
Total Time (30-74mins, 75-104mins- exclusive of procedures): Not Applicable
ED Attending Note
-
Portions of this chart may have been created with voice recognition software.� Occasional wrong word or��sound alike� substitutions may have occurred due to the inherent limitations of voice recognition software.
Discharge Plan
Departure
Prescriptions:
No Action
famotidine 40 mg Tablet
40 mg PO HS
lorazepam 0.5 mg Tablet
0.5 mg PO HS
Patient Comments:
02-24-24-last filled on 11/15/2023 for 7 tablets per PDMP.
cholestyramine-aspartame [Cholestyramine Light] 4 gram powder in packet
1 ea PO DAILYPRN PRN (Reason: diahrrea)
Referrals:
Ishaan Ames, DO [Family Provider] -
Interventions
Interventions:
*Risk Screen - Suicide Last Done: 02/24/24 14:00
*General Assessment Last Done: 02/24/24 14:00
*Neglect/Abuse Screening Last Done: 02/24/24 14:00
*ED COVID-19 Vaccine History Last Done: 02/24/24 10:57
[place]-Xlzknp-Jfbvilvrew Assessment Last Done: 02/24/24 13:30
Discharge Date and Time
Print Language: SLOVENIAN
[2024-02-24] MEDS: MORPHINE SULFATE 4 MG IV (14:27)
[2024-02-24] MEDS: PEPCID 20 MG IV (14:28)
[2024-02-24] MEDS: ZOFRAN 4 MG IV (14:28)
[2024-02-24] MEDS: NSS 500 IV (14:30)
[2024-02-24 14:37] LABS: % Basophils 0.6 % (0-2); % Immature Granulocytes 0.5 % (0-0.5); % Lymphocytes 13.7 % (20.5-51.1); % Monocytes 6.9 % (1.7-9.3); % Neutrophils 76.3 % (42.2-75.2); Absolute Eosinophils 0.1 10^3/uL (0-0.7); Absolute Lymphocytes 0.9 10^3/uL (1.2-3.4); Absolute Monocytes 0.5 10^3/uL (0.1-0.6); Hematocrit 35.3 % (37.0-47.0); Mean Corpuscular Hgb 32.8 pg (27.0-31.0); Mean Corpuscular Volume 96.4 fL (81.0-99.0); Mean Platelet Volume 10.1 fL (7.4-10.4); Nucleated Red Blood Cells % 0 %; Platelet Count 212 10^3/uL (130-400); Red Blood Cell Count 3.66 10^6/uL (4.20-5.40); Red Cell Dist. Width 15.8 % (11.5-14.5); White Blood Cell Count 6.5 10^3/uL (4.8-10.8)
[2024-02-24 14:41] LABS: Urine Albumin Trace (Neg - Trace); Urine Bilirubin 2+ (Negative); Urine Character Clear (Clear); Urine Color Yellow; Urine Glucose Negative (Negative); Urine Ketone Negative (Negative); Urine Leukocyte 1+ (Negative); Urine Nitrite Negative (Negative); Urine Occult Blood Negative (Negative); Urine Urobilinogen Negative (Neg - 1+)
[2024-02-24 15:11] LABS: ALT (SGPT) 299 U/L (0-35); Albumin 4.1 g/dl (3.5-5.0); Alkaline Phosphatase 115 U/L (38-126); Blood Urea Nitrogen 28 mg/dl (7-17); Calcium 8.8 mg/dl (8.4-10.2); Carbon Dioxide 20 mmol/L (22-30); Chloride 102 mmol/L (98-107); Glucose 138 mg/dl (70-99); Lipase 147 U/L (23-300); Potassium 2.8 mmol/L (3.5-5.1); Sodium 137 mmol/L (135-145); Total Bilirubin 1.8 mg/dl (0.2-1.3); Total Protein 6.8 g/dl (6.3-8.2); eGFR 28.06
[2024-02-24 15:25] LABS: AST (SGOT) 873 U/L (14-36)
[2024-02-24 15:47] VITALS: BMI 24.6
[2024-02-24 15:51] LABS: Urine Red Blood Cell 0-2 /HPF (0-2); Urine Squamous Cell >30 /LPF (Few); Urine White Cell 0-2 /HPF (0-5)
[2024-02-24 15:52] LABS: Urine Bacteria Few (Negative); Urine Yeast Few (Negative)
--- NOTE | 2024-02-24 20:42 | HPS.HSE ---
Family Physician
-
Family Physician: Ishaan Ames
Chief Complaint
-
Vomiting and Abdominal Pain
History of Present Illness
Patient is a 68 y/o female past medical history of gastritis, and alcohol use disorder who presents with vomiting and abdominal pain. Patient has multiple recent hospitalization for abdominal pain, mostly recently discharged on February 17. She
reports she was initially doing well at home. On Saturday evening, 3 day ago, she sustained a fall. The following day she took two doses of ibuprofen which triggered recurrent abdominal pain and vomiting. She also reports taking Tylenol 1000mg at
least four times a day since the fall. Due to persistent vomiting she presented to the emergency department for evaluation.
Medical History
Past Medical History
Past Medical History: Reports Other
Additional Past Medical History:
Gastritis
Grade C/D Esophagitis
Alcohol Use Disorder
Irritable Bowel Syndrome
C Diff
Anxiety
Past Surgical History: Reports Other
Additional Past Surgical History:
Cholecystectomy
Appendectomy
Hysterectomy
Moh's Procedure
Right Upper Extremity Epicondylitis Surgery
Social History
Tobacco: Non-smoker
Alcohol: Other (Patient known history of alcohol use disorder, but is currently denies any alcohol use)
Drug: None
Personal: Single
Family History
Family History: Other (Father: Colon Cancer)
Allergies / Home Medications
Allergies reflects when Allergies were last updated in [employer].
Home Medications with original date entered in [employer]
Allergy/Medication List:
Allergies
Allergy/AdvReac Type Severity Reaction Status Date / Time
aspirin Allergy Unknown Verified 02/24/24 10:58
gabapentin Allergy Unknown Verified 02/24/24 10:58
NSAIDS (Non-Steroidal Allergy Unknown Verified 02/24/24 10:58
Anti-Inflamma
Iqhxpci-TXB-LzH Reductase Allergy Swelling Verified 02/24/24 10:58
Inhibitor
Sulfa (Sulfonamide Allergy Unknown Verified 02/24/24 10:58
Antibiotics)
Home Medications
famotidine 40 mg tablet 40 mg PO HS GERD 01/12/24
lorazepam 0.5 mg tablet 0.5 mg PO HS Anxiety 01/12/24
cholestyramine-aspartame 4 gram oral powder for susp in a packet (Cholestyramine Light) 1 ea PO DAILYPRN PRN diahrrea 02/24/24
Review of Systems
-
A 12 point ROS was completed and negative except as noted: Yes
Constitutional: Denies Fever or Chills
Respiratory: Denies Cough or Trouble Breathing
Cardiac: Denies Chest Pain or Palpitations
Abdomen/GI: Reports See HPI
Physical Exam
Vital Signs
Vital Signs
Temp Pulse Resp BP Pulse Ox
98.4 F 60 16 102/65 98
02/24/24 10:57 02/24/24 10:57 02/24/24 10:57 02/24/24 10:57 02/24/24 10:57
Physical Exam
General: Comfortable and Conversant
HEENT: Anicteric and Moist mucous membranes
Respiratory: Clear and Non Labored Respirations
Cardiac: S1/S2 and Regular Rhythm
GI: Soft and Tender (Mild right without rebound or guarding)
Musculoskeletal: No Clubbing and No Cyanosis
Skin: Warm and Dry
Neuro: Awake, Alert and Nonfocal/grossly intact
Laboratory Results
-
02/24/24 14:12
02/24/24 14:12
Laboratory Results
Total Bilirubin 1.8 mg/dl (0.2-1.3) H 02/24/24 14:12
AST 873 U/L (14-36) H* 02/24/24 14:12
ALT 299 U/L (0-35) H 02/24/24 14:12
Alkaline Phosphatase 115 U/L (38-126) 02/24/24 14:12
Lipase 147 U/L (23-300) 02/24/24 14:12
Data Reviewed
-
CT Scan: Report Reviewed by me
Lab Data: Labs Reviewed by me
Impression/Plan
-
Abdominal Pain / Vomiting, likely gastritis related to medication non-compliance and NSAID use
-Allow clear liquids
-Continue Protonix IV BID
-Continue Carafate BID
Transaminitis, concern for possibly Tylenol Toxicity
-Consult GI
-Check Tylenol Level
-Start NAC protocol
Acute Kidney Injury, likely for poor oral intake and GI losses
-Continue IVFs
-Avoid NSAIDs
-Repeat labs in AM
Hypokalemia, likely related to GI losses
-Replace potassium PO and IV
-Check magnesium level
-Recheck potassium level later tonight and in AM
Anxiety
-Continue lorazepam
Alcohol Use Disorder
-Continue thiamine and folic acid
DVT proph: SCDs
Code Status: Full Code
[2024-02-24 20:55] LABS: Acetaminophen 129 ug/ml (10-30); Alcohol None Detected; Magnesium 1.1 mg/dl (1.6-2.3)
--- NOTE | 2024-02-24 20:57 | W.PN.UPDATE ---
Update Note
Progress Note Update
This is an addendum to the H&P written by Jessica Mackenzie on 02/24/2024.
68-year-old past medical history of C. difficile antigen positivity, GERD/esophagitis, hiatal hernia, peptic ulcer with prior bleeding, IBS, alcohol use disorder, suspected gout, anxiety, hypertension, presenting with abdominal pain. She had been
taking no more than 8 tablets of extra strength Tylenol every day for the past few days for the pain and 2 tablets of ibuprofen with subsequent vomiting.
She had a fall 3 days ago and injured her right forearm.
Patient's mental status is at baseline compared to when I saw her on previous admissions. Labs show severe transaminitis, JULI. CT abdomen pelvis shows no new findings apart from moderate fecal material.
Abdominal pain/vomiting likely due to gastritis due to medication noncompliance for which she was admitted similarly several times in the past. Continue PPI twice daily. There is also concern for acetaminophen toxicity. Tylenol level, INR
pending. Will start NAC. GI consulted.
JULI multifactorial secondary to prerenal GI losses and NSAID use. IV fluids.
Patient also with hypokalemia, which could be related to hypomagnesemia. Check magnesium, replete potassium.
As per med rec patient is not taking the majority of medications that she was prescribed previously.
[2024-02-24 21:04] LABS: INR 1.23; PT 15.3 Sec (11.4-14.6)
--- NOTE | 2024-02-24 21:15 | EDRN ---
Report received from JUAN DANIEL Willson, patient placed in room and given a gown tot change into she wanted to use the restroom, was able to ambulate to the bathroom and back in bed, resting comfortably in bed and set of vital signs obtained
[2024-02-24 21:23] VITALS: BP 124/73
[2024-02-24] MEDS: ACETADOTE 250.300000000000011 MG IV (21:51)
[2024-02-24] MEDS: KCL 40 MEQ PO (21:56)
[2024-02-24 22:00] VITALS: BP 119/64
[2024-02-24] MEDS: NSS (PRESERVATIVE FREE) 10 ML IV (22:30)
[2024-02-24] MEDS: PROTONIX IV 40 MG IV (22:30)
[2024-02-24] MEDS: NSS with KCL 40 MEQ 1000 IV (22:31)
[2024-02-24] MEDS: MAGNESIUM SULFATE 100 IV (22:54)
--- NOTE | 2024-02-24 23:00 | EDRN ---
Patient asking about her night time ativan, will give per order
[2024-02-24 23:06] VITALS: BP 96/76
[2024-02-24] MEDS: ACETADOTE 516.799999999999955 MG IV (23:10)
[2024-02-24] MEDS: ATIVAN 0.5 MG PO (23:11)
--- NOTE | 2024-02-24 23:34 | EDRN ---
In with patient, she is complaining of itching and having a hard time breathing, the 2nd bag of Acetadote had been started, only thing that had changed, placed that on standby, she did not have any issues with the first bag that was administered.
Patient also placed on 2L nasal canula, her o2 had dropped to 88%, o2 now stable at 93%, patient does have some redness noted to hands and face. Also going is potassium 40mEq in 1,000 normal saline at 75mL/hr as well has magnesium 4g over 4 hours,
patient reports she has had both of those meds before. Spoke with there hospitalist covering telemetry patients about what is going on with patient, the symptoms and placing patient on O2 and meds on standby. Plan is to give 25mg benadryl IV and
place the Acetadote on standby for 1 hour and if patient remains ok and stable, will restart the Acetadote. Patientis alert and awake and speaking with me through this, will continue to monitor.
--- NOTE | 2024-02-24 23:43 | W.PN.UPDATE ---
Update Note
Progress Note Update
Patient developed acute onset of flushing and pruritus during second infusion of NAC. Give Benadryl 25mg IV Now and hold NAC infusion for one hour. If symptoms improve then resume NAC infusion.
[2024-02-24 23:50] VITALS: BP 134/74
[2024-02-24] MEDS: BENADRYL 25 MG IV (23:50)
--- NOTE | 2024-02-24 23:55 | EDRN ---
Patient asking to use restroom, don't want patient to get up right now as she just got Benadryl, patient placed on a bedpan, was able to go and cleaned up
[2024-02-25] VITALS (28 sets, daily range): BP systolic 74–150; BP diastolic 29–113
--- NOTE | 2024-02-25 00:49 | EDRN ---
Patient has remained stable and nto as much itching or redness noted will restart the Acetadote at this time and monitor patient for reaction, call campos in reach.
[2024-02-25 01:11] LABS: Potassium 2.7 mmol/L (3.5-5.1)
--- NOTE | 2024-02-25 01:35 | EDRN ---
Went in to check on patient to see how she was tolerating the Acetadote being back on, she feels okay and does not have any itching or redness, not requiring the O2 anymore, however, her BP has been trending down, re-positioned BP cuff and rechecked
and patients BP still continues to be low, 74/38 W/ a map of 50, 84/44 with a map of 56 and then 79/58 with a map of 67, tiger texted Loli Sarah who is the MOP MACHINE OPERATOR covering tele patients to inform her of the patients status, waiting on orders at
this time.
--- NOTE | 2024-02-25 01:40 | EDRN ---
Potassium level also came back at 2.7, informed ROBB Ennis of this result as well, waiting for orders at this time.
[2024-02-25] MEDS: KCL 40 MEQ PO ×3 (02:10→19:28)
[2024-02-25] MEDS: NSS 1000 IV (02:35)
--- NOTE | 2024-02-25 02:37 | EDRN ---
Spoke with ROBB Ennis about patients low BP and potassium, more potassium was ordered to replaced her 2.7 level results, after reviewing chart and the Acetadote information, the plan is to pause the Acetadote for 1 hour and to give a bolus of normal
saline, poison control will also be contacted to ask what is recommended if patient can't tolerate the Acetadote infusion or hypotension occurs. Also will ask poison control when Acetaminophen level repeat is recommended, did repeat patients BP on
the other arm, both arms have same results of hypotension, mean while patient was also placed on bedpan to urinate and provided with new underwear, warm blankets applied as well as pillow and lights turned down for comfort, call campos in reach.
--- NOTE | 2024-02-25 02:52 | W.PN.UPDATE ---
Addendum entered and electronically signed by NIDHI Flores 02/25/24 04:02:
0330 spoke with Taylor, toxicology fellow regarding possible reaction to NAC
LAbs reviewed with fellow (ast,alt, Tylenol levels)
Reviewed pt reaction after first bag of NAC and hypotension starting after second bag. Unsure if hypotension is caused by NAC but is possible. After nss bolus sbp improving to 113.
Since pt with without respiratory symptoms currently, based on current liver function tests and tylenol levels it is in pt best intrest to keep NAC infusion going as long as possible. Rate can be slowed if needed.
Can use pressor support for hypotension if needed.
If pt develops anaphylaxis symptoms use benadryl, epi, steroids.
Recommend to check tylenol levels and lft q12h until levels normalize.
Will make pt IMU for closer monitoring
Original Note:
Update Note
Progress Note Update
2330 Patient developed acute onset of flushing and pruritus and SOB during second infusion of NAC. Given Benadryl 25mg IV Now and held NAC infusion for one hour. Symptoms improved then and NAC infusion resumed.
0230 PT with no symptoms of puritis or SOB, but RN states hypotension with sbp 70s. PT aaox3 and mentating well despite low bp. Will give NSS bolus and hold NAC infusion x1 hr and reassess. May need to upgrade to higher level of care for closer
monitoring.
According to Uptodate: 10-20% of pts can have adverse reactions (anaphylaxis, angioedema, urticaria, hypotension).
--- NOTE | 2024-02-25 03:33 | EDRN ---
Patient placed on bedpan to urinate and the tucked back in, also spoke with Loli the RADIATION PHYSICIST asking if we need to repeat the Acetaminophen level, she will place an order to repeat level, spoke with poison control who informed me they need to consult the
contractor broomcorn threshing who will then call and speak with ROBB Ennis about their recommendations for patient. The patient's BP is normalizing at this time as well, will continue to monitor patient
--- NOTE | 2024-02-25 04:00 | EDRN ---
Patients blood pressure has remained stable, restarted the patients Acetadote and sent repeat Acetaminophen level on patient, patient needing to urinate again, placed on bedpan, cleaned up and lights turned off, will continue to monitor patients
status closely. Spoke with ROBB Ennis about patient she spoke with toxicology who recommends keeping patient on the Acetadote and monitoring BP closely.
[2024-02-25 04:58] LABS: Acetaminophen 15 ug/ml (10-30)
[2024-02-25] MEDS: ACETADOTE 1033.5 MG IV ×2 (06:36→22:21)
[2024-02-25 07:04] LABS: INR 1.48; PT 17.7 Sec (11.4-14.6)
[2024-02-25 07:09] LABS: Albumin 3.2 g/dl (3.5-5.0); Alkaline Phosphatase 78 U/L (38-126); Blood Urea Nitrogen 17 mg/dl (7-17); Calcium 7.9 mg/dl (8.4-10.2); Carbon Dioxide 18 mmol/L (22-30); Chloride 110 mmol/L (98-107); Estimated Creatinine Clearance 47 ml/min; Glucose 94 mg/dl (70-99); Magnesium 2.4 mg/dl (1.6-2.3); Potassium 3.8 mmol/L (3.5-5.1); Sodium 139 mmol/L (135-145); Total Bilirubin 1.5 mg/dl (0.2-1.3); Total Protein 5.8 g/dl (6.3-8.2); eGFR > 60.00
--- NOTE | 2024-02-25 07:12 | EDRN ---
Patient placed on bedpan and back off, resting comfortably at this time, report to Torrie FRANCES
--- NOTE | 2024-02-25 07:15 | EDRN ---
Phlebotomy paged due to pt being a difficult stick for redraw @ [id number]
[2024-02-25 07:50] LABS: ALT (SGPT) 904 U/L (0-35); AST (SGOT) 2395 U/L (14-36)
--- NOTE | 2024-02-25 08:15 | CON.GI ---
Addendum entered and electronically signed by Park Masterson MD 02/25/24 10:32:
I saw and examined the patient.
The CRITICAL CARE TECHNICIAN or PA's note was reviewed and I agree with the note.
Comment:
Pt is a 68 y/o with a hx of alcohol abuse (although abstinent since last d/c), erosive esophagitis, colitis, gout, anxiety who was admitted for back pain and abd pain after a fall. She had been taking advil but switched to tylenol and was taking
this every few hours. In the ER her acetominophen level was elevated as was her LFTs. Prior imaging shows fatty liver. She is not confused and currently doesn't have abd pain but does have back pain
alert, oriented
anicteric
no asterixis
impression:
gerd
esophagitis
acetominophin toxicity (accidental)
plan:
avoid acetominophen
NAC protocol
follow lfts and INR closely
monitor mental status
PPI
clear liquids for now
Original Note:
Consultation
-
Date/Time Consultation Requested: 02/24/245
Date/Time Consultation Performed: 02/25/24 5890
Requesting Provider: ANGELA Morrison
Performing Provider: Dr. Masterson/NIDHI Child
Reason for Consultation: Vomiting abd pain
Medical History
Chief Complaint / HPI
Chief Complaint: back pain/abdominal pain
History of Present Illness:
68-year-old female with a past medical history significant for GERD, hiatal hernia, hypertension, alcohol abuse, colitis, LA grade C/D esophagitis, recent admission with suspected C. difficile infection, prior GI bleed secondary to peptic ulcer,
IBS, suspected gout, anxiety, who presented to the emergency room with complaints of N/V and back pain after sustaining a fall after 'sleep walking on Saturday night'. The patient states she then got 2 Advil for her discomfort. She then took 2 more
a couple hours later. She developed acute onset of abdominal pain with nausea and vomiting that was clear in nature no signs of hematemesis or coffee grounds. She has been abstinent from alcohol since her last discharge. She states she has been
taking pantoprazole, cholestyramine, Carafate since discharge with good results. She knows that she should not take NSAIDs but she said her back hurt too much. After having the abdominal symptoms she then switched over to Tylenol. She states she
did not get any relief of her back discomfort therefore she started taking 2 extra strength Tylenol every hour. She states that where she states they have a grandfather clock and when the clock would chime on the hour she would take an additional 2
extra strength Tylenol. She did this from [address] until the homeowner woke up. She did this at least for 4 hours in the morning Saturday a.m. There was then a period of time that she did not take Tylenol but she never went more than 4
hours without taking any. She did not have any idea that this would be detrimental to her. She then resumed taking Tylenol. The reason why she held off was because it was the homeowners personal Tylenol medication and not her own. When the home
threading machine operator went to sleep she then resumed taking it every 1-2 hours. She did this all evening Saturday into Saturday. On Saturday she started with nausea and abdominal discomfort again. She had recurrence of vomiting persistence of back pain and at that
point she came to the emergency room again. She has not had a bowel movement. She denies any fevers, chills, melena, hematochezia, dysphagia or odynophagia. No early satiety or unintentional weight loss. She has had no periods of confusion.
Again she did not realize that this amount of acetaminophen could be deadly to her. We did discuss this at length. She was started on acetylcysteine protocol. When she presented she did have a Tylenol level of 129 this was 02/24/2024 at 1412, her
last dose of Tylenol was 1 gram on 02/24/24 at 0900. Repeat level performed on 02/25/2024 at 0400 was 15. I did obtain the phone number of her next of kin which is her daughter Azul Pablo [phone] who lives in [place] in case the patient is
unable to make decisions for self in the future. Currently at the present time the patient is awake alert and oriented no apparent distress. She has clear mentation no signs of asterixis.
Past Medical History
Past Medical History: GERD (LA grade C/D esophagitis on EGD in 2022, questionable history of peptic ulcer disease with prior GI bleed), Psychiatric (Anxiety, depression) and Other (IBS, suspected gout, history of C. difficile antigen positive,
chronic anemia)
Past Surgical History: Appendectomy, Cholecystectomy and Gynecological (Hysterectomy, right upper extremity epicondylitis x 2)
Social History
Tobacco: Non-Smoker
Alcohol: Daily
Drug: None
Personal: Single
Living: With Roomate
Family History
Family History: Reviewed & Not Pertinent
Allergies / Home Medications
Allergy/AdvReac Type Severity Reaction Status Date / Time
aspirin Allergy Unknown Verified 02/24/24 10:58
gabapentin Allergy Unknown Verified 02/24/24 10:58
NSAIDS (Non-Steroidal Allergy Unknown Verified 02/24/24 10:58
Anti-Inflamma
Lxzhyzo-KEP-ZcD Reductase Allergy Swelling Verified 02/24/24 10:58
Inhibitor
Sulfa (Sulfonamide Allergy Unknown Verified 02/24/24 10:58
Antibiotics)
�Medication �Instructions �Recorded
famotidine 40 mg tablet 40 mg PO HS GERD 01/12/24
lorazepam 0.5 mg tablet 0.5 mg PO HS Anxiety 01/12/24
cholestyramine-aspartame 4 gram 1 ea PO DAILYPRN PRN diahrrea 02/24/24
oral powder for susp in a packet
(Cholestyramine Light)
Review of Systems
-
All other systems: A 12 pt ROS was Negative except as stated above in HPI
Vital Signs
Temp Pulse Resp BP Pulse Ox
98.4 F 80 20 105/81 91
02/24/24 10:57 02/25/24 07:02 02/25/24 07:02 02/25/24 07:02 02/25/24 07:02
Physical Exam
Exam
General: No Apparent Distress
HEENT: Anicteric
Respiratory: Clear
Cardiac: Regular Rhythm
GI: Soft, Non Tender, Non Distended and Normal Bowel Sounds
Musculoskeletal: No Edema
Skin: Warm and Dry
Neuro: AO x 3
Psych: Calm
Results
WBC Cancelled 02/25/24 06:17
Hgb Cancelled 02/25/24 06:17
Hct Cancelled 02/25/24 06:17
MCV Cancelled 02/25/24 06:17
Plt Count Cancelled 02/25/24 06:17
Absolute Neuts (auto) 5.0 10^3/uL (1.4-6.5) 02/24/24 14:12
PT 17.7 Sec (11.4-14.6) H 02/25/24 06:17
INR 1.48 02/25/24 06:17
Sodium 139 mmol/L (135-145) 02/25/24 06:17
Potassium 3.8 mmol/L (3.5-5.1) D 02/25/24 06:17
Chloride 110 mmol/L (98-107) H 02/25/24 06:17
Carbon Dioxide 18 mmol/L (22-30) L 02/25/24 06:17
BUN 17 mg/dl (7-17) 02/25/24 06:17
Creatinine 1.0 mg/dL (0.6-1.0) 02/25/24 06:17
Calcium 7.9 mg/dl (8.4-10.2) L 02/25/24 06:17
Total Bilirubin 1.5 mg/dl (0.2-1.3) H 02/25/24 06:17
AST 2395 U/L (14-36) H* 02/25/24 06:17
ALT 904 U/L (0-35) H* 02/25/24 06:17
Alkaline Phosphatase 78 U/L (38-126) 02/25/24 06:17
Lipase 147 U/L (23-300) 02/24/24 14:12
Diagnostic Image Results:
CT Abd/Pelvis without oral IV Contrast:
IMPRESSION: No acute pathology of the abdomen or pelvis identified.
Moderate diverticulosis. Stable
Too small to characterize hypodense hepatic lesions likely small cysts or hemangiomas. Stable
Bilateral simple renal cysts. Stable
Small hiatal hernia. Stable
Moderate fecal material throughout the colon. New
Prior GI Procedures:
EGD
06/11/23, Dr. Warner
�� � � � � � � � - LA Grade C reflux esophagitis with no bleeding.
�� � � � � � � � � � � - Normal stomach.
�� � � � � � � � � � � - Normal examined duodenum.
EGD
03/15/23, Dr. Rosen
� � � � � � � � - LA Grade D reflux esophagitis. Slight improvement
�� � � � � � � � � � � from previous exam.
�� � � � � � � � � � � - Medium-sized hiatal hernia.
�� � � � � � � � � � � - No gross lesions in the entire stomach.
�� � � � � � � � � � � - Normal duodenal bulb, first portion of the duodenum
�� � � � � � � � � � � and second portion of the duodenum.
EGD
12/17/22, Dr. Rosen� � � � �
� � � � � � � � - LA Grade D esophagitis. Circumferential superficial
�� � � � � � � � � � � ulcers in distal esophagus.
�� � � � � � � � � � � - Medium-sized hiatal hernia.
Colonoscopy:� 5-10 years ago at [facility] per pt, unknown results
Assessment / Plan
-
68-year-old female with a past medical history significant for GERD, hiatal hernia, hypertension, alcohol abuse last drink 02/14/24, colitis, LA grade C/D esophagitis, recent admission with suspected C. difficile infection, prior GI bleed secondary
to peptic ulcer, IBS, suspected gout, anxiety, who presented to the emergency room with complaints of N/V and back pain after sustaining a fall after 'sleep walking on Saturday night'. The patient states she then got 2 Advil for her discomfort. She
then took 2 more a couple hours later. She developed acute onset of abdominal pain with nausea and vomiting that was clear in nature no signs of hematemesis or coffee grounds. Fortunately since that time has been taking multiple doses of Tylenol
in excess inadvertently since Saturday night/Saturday morning exceeding recommended doses. She was started on acetylcysteine protocol. When she presented she did have a Tylenol level of 129 this was 02/24/2024 at 1412, her last dose of Tylenol was 1
gram on 02/24/24 at 0900. Repeat level performed on 02/25/2024 at 0400 was 15. I did obtain the phone number of her next of kin which is her daughter Azul Pablo [phone] who lives in [place] in case the patient is unable to make decisions for
self in the future. Currently at the present time the patient is awake alert and oriented no apparent distress. She has clear mentation. On presentation WBC 6.5, hemoglobin 12.0, hematocrit 35.3, platelets 212. Currently INR 17.7 up from 15.3,
INR 1.48 up from 1.23. Sodium 139, potassium 3.8, chloride 110, CO2 18, BUN 17, creatinine 1.0, glucose 94, magnesium 2.4, bilirubin 1.5 down from 1.8, AST 2395 up from 873, ALT 904 up from 299, alk phos 78 down from 115.
Impression:
-Accidental Tylenol overdose, started on acetylcysteine. Last Tylenol level was 15 approximately 20 hours after ingestion. Initial level was 129 (4 hours after ingestion)
-Nausea/vomiting
-Elevated LFTs
-History of alcohol abuse
-History of prior GI bleed secondary to peptic ulcer
-History of chronically dilated common bile duct, status postcholecystectomy, MRCP in August 2023
Other pertinent medical history:
-Hypertension
-Hiatal hernia
-Anxiety/depression
-IBS
-Suspected gout
Plan:
-Continue acetylcysteine. Will continue until LFTs normalize
-Concerns for hepatic decompensation secondary to acetaminophen overdose, worsening LFTs, INR.
-Trend CBC, LFTs, PT/INR later today and in am.
-Continue pantoprazole 40 mg IV twice daily
-Continue cholestyramine
-Continue thiamine, folic acid, lorazepam
-Clear liquid diet for now, if no nausea and vomiting would increase to bland diet later today
-Further recommendations to be forthcoming.
-next of kin which is her daughter Azul Pablo [phone] who lives in [place]
Data Reviewed
-
CT Scan: Report Reviewed by me
Old Records: Reviewed
-
-
Thank you for consultation and allowing me to participate in the patient's care. Please call the [facility] GI physician during the after hours with any questions or concerns.
[2024-02-25] MEDS: PROTONIX IV 40 MG IV ×2 (08:27→19:28)
[2024-02-25] MEDS: THIAMINE INJECTION 200 MG IV ×2 (08:27→19:28)
[2024-02-25] MEDS: CARAFATE SUSPENSION 1 GM PO ×2 (08:28→19:28)
[2024-02-25] MEDS: NSS (PRESERVATIVE FREE) 10 ML IV ×2 (08:29→19:28)
[2024-02-25] MEDS: FOLVITE 1 MG PO (08:36)
--- NOTE | 2024-02-25 09:28 | CM ---
CM following re: discharge planning.
CM consulted to assist pt with substance abuse treatment resources.
Pt is a 68 year old female, admitted with primary dx of Abdominal pain.
Pt reports she has been living with a friend and her son in a 2SH, 2 steps to enter, has a daughter who lives in [place]. 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 No DME, VN or SNF history. Pt stated she will take Uber to get home at
discharge.
CM consulted to assist the pt with substance abuse treatment resources. Pt strongly denied substance abuse problems. Pt stated she just took some Tylenol and Ibuprofen for pain. Pt declined an offer to meet with [facility] team, stated again she does
not have substance abuse problems.
PCP: Ishaan Ames
Pharmacy: [facility].
D/C plan: home with no needs. Pt will take Uber to get home at discharge.
CM will follow with discharge plan updates as needed.
[2024-02-25 09:39] LABS: Hematocrit 28.8 % (37.0-47.0); Hemoglobin 9.9 g/dL (12.0-16.0); Mean Corp Hgb Conc. 34.4 g/dL (33.0-37.0); Mean Corpuscular Hgb 32.8 pg (27.0-31.0); Mean Corpuscular Volume 95.4 fL (81.0-99.0); Mean Platelet Volume 9.9 fL (7.4-10.4); Platelet Count 185 10^3/uL (130-400); Red Blood Cell Count 3.02 10^6/uL (4.20-5.40); Red Cell Dist. Width 16.3 % (11.5-14.5); White Blood Cell Count 8.6 10^3/uL (4.8-10.8)
[2024-02-25] MEDS: QUESTRAN 4 GRAM PO (09:57)
[2024-02-25] MEDS: NSS with KCL 40 MEQ 1000 IV (13:34)
--- NOTE | 2024-02-25 15:33 | W.PN.HOSP.TC ---
Today's Communication/Plan
-
see plan above
Assessment / Plan
Assessment / Plan
Abdominal Pain / Vomiting, likely gastritis related to medication non-compliance and NSAID use
-Allow clear liquids
-Continue Protonix IV BID
-Continue Carafate BID
Transaminitis, sec to Tylenol Toxicity
- GI following
- Tylenol Level normalized
- cw NAC protocol
Acute Kidney Injury, likely for poor oral intake and GI losses
-Continue IVFs
-Avoid NSAIDs
-Follow labs
Back pain - use tramadol
Hypokalemia, likely related to GI losses
-Replaced potassium
Anxiety
-Continue lorazepam
Alcohol Use Disorder
-Continue thiamine and folic acid
DVT proph: SCDs
Code Status: Full Code
Anticipated Discharge: > 48 hours
Subjective/Interval History
-
Date of Service: February 25, 2024
Tells me she was taking Tylenol for her back pain..
Tolerating diet currently.
Denies any nausea vomiting.
Objective Data
-
Labs:
Laboratory Results
02/25/24 02/25/24 02/25/24
06:17 09:28 15:00
WBC Cancelled 8.6
Hgb Cancelled 9.9 L
Hct Cancelled 28.8 L
Plt Count Cancelled 185
PT 17.7 H Pending
INR 1.48 Pending
Sodium 139 Pending
Potassium 3.8 D Pending
Chloride 110 H Pending
Carbon Dioxide 18 L Pending
BUN 17 Pending
Creatinine 1.0 Pending
Glucose 94 Pending
Calcium 7.9 L Pending
Total Bilirubin 1.5 H Pending
AST 2395 H* Pending
ALT 904 H* Pending
Alkaline Phosphatase 78 Pending
Vital Signs:
Vital Signs
Temp Pulse Resp BP Pulse Ox
98.4 F 70 20 130/69 97
02/24/24 10:57 02/25/24 13:45 02/25/24 08:15 02/25/24 12:00 02/25/24 09:00
Review of Systems
-
Constitutional: Denies Fever
Respiratory: Denies Trouble Breathing
Cardiac: Denies Chest Pain
Neuro: Denies Dizzy
Physical Exam
-
General: No Apparent Distress
HEENT: Moist Mucous Membranes
Respiratory: Clear to Auscultation
Cardiac: Regular Rhythm
GI: Soft
Neuro: AO x 3; Negative Tremors
Psych: Calm
Data Reviewed
-
Labs: Labs Reviewed by me
--- NOTE | 2024-02-25 16:39 | PTCARENOTE ---
Received patient into room 3341. She is aaox3. SR on monitor. VSS. Pt reports nausea is improved and wants to try normal food. Order for advance diet as tolerated, therefore, ordered low residue diet. Pt walked to [facility] from stretcher, voided and then
to bed. Pt is continent of b/b. Assessment, care and VS as charted.
[2024-02-25 18:24] LABS: Albumin 2.8 g/dl (3.5-5.0); Alkaline Phosphatase < 20 U/L (38-126); Blood Urea Nitrogen 9 mg/dl (7-17); Calcium 8.1 mg/dl (8.4-10.2); Carbon Dioxide 16 mmol/L (22-30); Chloride 109 mmol/L (98-107); Direct Bilirubin 0.7 mg/dl (0.0-0.4); Estimated Creatinine Clearance 67 ml/min; Glucose 118 mg/dl (70-99); Sodium 133 mmol/L (135-145); Total Bilirubin 1.2 mg/dl (0.2-1.3); Total Protein 5.2 g/dl (6.3-8.2); eGFR > 60.00
[2024-02-25 18:38] LABS: INR 1.93; PT 21.9 Sec (11.4-14.6)
[2024-02-25 18:52] LABS: ALT (SGPT) 1519 U/L (0-35); Acetaminophen < 10 ug/ml (10-30)
[2024-02-25 19:12] LABS: AST (SGOT) 4310 U/L (14-36)
[2024-02-25] MEDS: ROXICODONE 5 MG PO (19:32)
[2024-02-25] MEDS: ATIVAN 0.5 MG PO (22:21)
[2024-02-26] VITALS (10 sets, daily range): BP systolic 122–152; BP diastolic 58–83; BMI 23.8
[2024-02-26] MEDS: NSS with KCL 40 MEQ 1000 IV (02:07)
[2024-02-26] MEDS: ROXICODONE 5 MG PO ×5 (03:38→22:13)
[2024-02-26 03:57] LABS: Hematocrit 26.3 % (37.0-47.0); Mean Corp Hgb Conc. 34.2 g/dL (33.0-37.0); Mean Corpuscular Hgb 32.3 pg (27.0-31.0); Mean Corpuscular Volume 94.3 fL (81.0-99.0); Mean Platelet Volume 10.3 fL (7.4-10.4); Platelet Count 167 10^3/uL (130-400); Red Blood Cell Count 2.79 10^6/uL (4.20-5.40); Red Cell Dist. Width 16.6 % (11.5-14.5); White Blood Cell Count 7.2 10^3/uL (4.8-10.8)
[2024-02-26 03:59] LABS: INR 1.68; PT 19.6 Sec (11.4-14.6)
[2024-02-26 04:25] LABS: Acetaminophen < 10 ug/ml (10-30); Albumin 2.7 g/dl (3.5-5.0); Alkaline Phosphatase 97 U/L (38-126); Blood Urea Nitrogen 8 mg/dl (7-17); Calcium 8.5 mg/dl (8.4-10.2); Carbon Dioxide 18 mmol/L (22-30); Chloride 111 mmol/L (98-107); Estimated Creatinine Clearance 67 ml/min; Glucose 113 mg/dl (70-99); Sodium 135 mmol/L (135-145); Total Bilirubin 0.9 mg/dl (0.2-1.3); Total Protein 5.1 g/dl (6.3-8.2); eGFR > 60.00
[2024-02-26 04:38] LABS: ALT (SGPT) 2100 U/L (0-35)
[2024-02-26 04:51] LABS: AST (SGOT) 5188 U/L (14-36)
--- NOTE | 2024-02-26 06:18 | PTCARENOTE ---
no acute events overnight, pt using bedside commode, c/o pain to lower back and hips from a fall per patient. medicated per NOV.
[2024-02-26] MEDS: FOLVITE 1 MG PO (08:19)
[2024-02-26] MEDS: QUESTRAN 4 GRAM PO (08:19)
[2024-02-26] MEDS: CARAFATE SUSPENSION 1 GM PO ×2 (08:19→22:13)
[2024-02-26] MEDS: THIAMINE INJECTION 200 MG IV ×2 (08:19→22:13)
[2024-02-26] MEDS: NSS (PRESERVATIVE FREE) 10 ML IV ×2 (08:20→22:13)
[2024-02-26] MEDS: PROTONIX IV 40 MG IV ×2 (08:20→22:12)
[2024-02-26] MEDS: KCL 40 MEQ PO (08:21)
--- NOTE | 2024-02-26 08:53 | W.PN.HOSP.TC ---
Today's Communication/Plan
-
Continue with NAC tx while following LFTs.
Obtain lumbar spine x-ray.
Assessment / Plan
Assessment / Plan
Acute liver injury-secondary to Tylenol toxicity
-Patient received per protocol and will be continued till LFTs improve . INR improved this morning.
- GI following
- Tylenol Level normalized
- cw NAC protocol
Acute Kidney Injury, likely for poor oral intake and GI losses
-Normalized creatinine. Appetite good. Hold further fluids.
-Avoid NSAIDs
-Follow labs
Abdominal Pain / Vomiting, likely gastritis related to medication non-compliance and NSAID use
-Allow clear liquids-advance diet per GI
-Continue Protonix IV BID
-Continue Carafate BID
Back pain since the fall-recently taking Tylenol-will obtain plain x-rays. Continue with oxycodone
Anxiety
-Continue lorazepam
Alcohol Use Disorder
-Continue thiamine and folic acid
DVT proph: SCDs
Code Status: Full Code
[facility] GI team this am.
Anticipated Discharge: > 48 hours
Subjective/Interval History
-
Date of Service: February 26, 2024
No nausea vomiting. Appetite is good.
She was taking Tylenol for back pain. She states she had a fall on Saturday. She was using initially ibuprofen, was giving her abdominal pain so was taking Tylenol on an hourly basis which resulted in Tylenol toxicity. She was again educated today
about Tylenol use for future that she should not use more than 4 g a day.
Since the fall she has a low back pain. She also felt it in the knees and elbows. Primary source of pain is the lower back.
Objective Data
-
Labs:
Laboratory Results
02/26/24 02/26/24 02/26/24
03:34 03:34 03:34
WBC 7.2
Hgb 9.0 L
Hct 26.3 L
Plt Count 167
PT 19.6 H
INR 1.68
Sodium 135 Cancelled
Potassium 5.0 Cancelled
Chloride 111 H
Carbon Dioxide
BUN
Creatinine
Glucose
Calcium
Total Bilirubin
AST
ALT
Alkaline Phosphatase
02/26/24 02/26/24 02/26/24
03:34 03:34 03:34
WBC
Hgb
Hct
Plt Count
PT
INR
Sodium
Potassium
Chloride Cancelled
Carbon Dioxide 18 L Cancelled
BUN 8 Cancelled
Creatinine 0.7
Glucose
Calcium
Total Bilirubin
AST
ALT
Alkaline Phosphatase
02/26/24 02/26/24 02/26/24
03:34 03:34 03:34
WBC
Hgb
Hct
Plt Count
PT
INR
Sodium
Potassium
Chloride
Carbon Dioxide
BUN
Creatinine Cancelled
Glucose 113 H Cancelled
Calcium 8.5 Cancelled
Total Bilirubin 0.9
AST
ALT
Alkaline Phosphatase
02/26/24 02/26/24 02/26/24
03:34 03:34 03:34
WBC
Hgb
Hct
Plt Count
PT
INR
Sodium
Potassium
Chloride
Carbon Dioxide
BUN
Creatinine
Glucose
Calcium
Total Bilirubin Cancelled
AST 5188 H* Cancelled
ALT 2100 H* Cancelled
Alkaline Phosphatase 97
02/26/24 02/26/24
03:34 14:00
WBC Pending
Hgb Pending
Hct Pending
Plt Count Pending
PT Pending
INR Pending
Sodium Pending
Potassium Pending
Chloride Pending
Carbon Dioxide Pending
BUN Pending
Creatinine Pending
Glucose Pending
Calcium Pending
Total Bilirubin Pending
AST Pending
ALT Pending
Alkaline Phosphatase Cancelled Pending
Vital Signs:
Vital Signs
Temp Pulse Resp BP Pulse Ox
99 F 74 17 128/67 92
02/26/24 07:25 02/26/24 06:00 02/26/24 06:00 02/26/24 04:00 02/26/24 04:00
I&O
02/25/24 02/26/24 02/27/24
06:59 06:59 06:59
Intake Total 518 / 518
Balance 518 / 518
Review of Systems
-
Respiratory: Denies Trouble Breathing
Cardiac: Denies Chest Pain
Neuro: Denies Dizzy
Physical Exam
-
General: No Apparent Distress
HEENT: Moist Mucous Membranes
Respiratory: Clear to Auscultation
Cardiac: Regular Rhythm and S1/S2
GI: Soft and Nontender
Neuro: No Motor Deficits; Negative Tremors
Psych: Calm
Data Reviewed
-
Labs: Labs Reviewed by me
--- NOTE | 2024-02-26 10:03 | W.PN.GI.CBS2 ---
Today's Communication / Plan
-
Continue NAC protocol. Continue to trend LFTs, INR and mental status.
Assessment / Plan
-
68-year-old female with a past medical history significant for GERD, hiatal hernia, hypertension, alcohol abuse last drink 02/14/24, colitis, LA grade C/D esophagitis, recent admission with suspected C. difficile infection, prior GI bleed secondary
to peptic ulcer, IBS, suspected gout, anxiety, who initially presented to with complaints of nausea, vomiting and back pain after suffering a mechanical fall, found to have significantly elevated liver enzymes and a tylenol level of 129,
consistent with acetaminophen toxicity due to an accidental overdose.
Due to rising INR in the setting of acetaminophen overdose, initial concerns for fulminant liver failure, however, AM labs are reassuring with downtrending INR. Actaminophen level x2 <10, from initial level of 129. Her liver enzymes continued to
rise, however, with AST >5,000, ALT >2000, AM labs pending.
Impression: DILI 2/2 accidental tylenol overdose, started on NAC, mentation intact, no signs of encephalopathy.
Plan:
-does not meet [facility] Criteria, hold off on transfer to tertiary care center at this time
-c/w NAC protocol. LFTs rising, awaiting AM labs, continue to trend until normalize, also monitoring INR, glucose, sodium and mentation closely, but no signs of enccephalopathy at this time
-recommend checking CK in the event she has concomitant rhabdo in setting of fall, AST > ALT and significantly elevated, can happen with both acetaminophen and rhabdo
-check labs q8 hours
-Continue pantoprazole 40 mg IV twice daily
-Continue cholestyramine
-Continue thiamine, folic acid, lorazepam
-c/w low residue diet, she is tolerating well
-next of kin which is her daughter Azul Pablo [phone] who lives in [place]
Subjective
Subjective
Date of Service: February 26, 2024
Patient seen in follow-up this morning, INR downtrending, remaining labs still pending. She reports feeling well this morning, no signs of encephalopathy. She admits to also taking 4 tablets of ibuprofen, alternatinging with the extra-strength
Tylenol she was taking approximately every other hour. Acetaminophen level 129 --> <10, <10. Continued on NAC protocol.
Objective
Data Reviewed
Laboratory Data:
Laboratory Results
PT 19.6 Sec (11.4-14.6) H 02/26/24 03:34
INR 1.68 02/26/24 03:34
Magnesium 2.4 mg/dl (1.6-2.3) H 02/25/24 06:17
Total Bilirubin 0.9 mg/dl (0.2-1.3) 02/26/24 03:34
Total Bilirubin Cancelled 02/26/24 03:34
AST 5188 U/L (14-36) H* 02/26/24 03:34
AST Cancelled 02/26/24 03:34
ALT 2100 U/L (0-35) H* 02/26/24 03:34
ALT Cancelled 02/26/24 03:34
Alkaline Phosphatase 97 U/L (38-126) 02/26/24 03:34
Alkaline Phosphatase Cancelled 02/26/24 03:34
Lipase 147 U/L (23-300) 02/24/24 14:12
Vital Signs and I&O:
Vital Signs
Temp Pulse Resp BP Pulse Ox
99 F 74 17 128/67 92
02/26/24 07:25 02/26/24 06:00 02/26/24 06:00 02/26/24 04:00 02/26/24 04:00
I&O
02/25/24 02/26/24 02/27/24
06:59 06:59 06:59
Intake Total 518 / 518
Balance 518 / 518
Physical Exam
Physical Exam
General: NAD
HEENT: Anicteric
Respiratory: Clear
Cardiac: Regular Rhythm
GI: Soft, NTND, +BS.
Musculoskeletal: No Edema
Skin: Warm and Dry
Neuro: AO x 3. No asterixes
Psych: Calm
[2024-02-26 11:49] LABS: Creatine Phosphokinase 53 U/L (30-135)
[2024-02-26 15:12] LABS: Hematocrit 24.7 % (37.0-47.0); Hemoglobin 8.4 g/dL (12.0-16.0); Mean Corpuscular Hgb 32.6 pg (27.0-31.0); Mean Corpuscular Volume 95.7 fL (81.0-99.0); Mean Platelet Volume 9.9 fL (7.4-10.4); Platelet Count 153 10^3/uL (130-400); Red Blood Cell Count 2.58 10^6/uL (4.20-5.40); Red Cell Dist. Width 17.1 % (11.5-14.5); White Blood Cell Count 5.7 10^3/uL (4.8-10.8)
[2024-02-26 15:25] LABS: Acetaminophen < 10 ug/ml (10-30); Albumin 2.7 g/dl (3.5-5.0); Alkaline Phosphatase 97 U/L (38-126); Blood Urea Nitrogen 7 mg/dl (7-17); Calcium 8.5 mg/dl (8.4-10.2); Carbon Dioxide 22 mmol/L (22-30); Chloride 108 mmol/L (98-107); Direct Bilirubin 0.5 mg/dl (0.0-0.4); Estimated Creatinine Clearance 59 ml/min; Glucose 129 mg/dl (70-99); Potassium 4.9 mmol/L (3.5-5.1); Sodium 135 mmol/L (135-145); Total Bilirubin 0.9 mg/dl (0.2-1.3); Total Protein 5.1 g/dl (6.3-8.2); eGFR > 60.00
[2024-02-26 15:32] LABS: INR 1.44; PT 17.4 Sec (11.4-14.6)
[2024-02-26 15:52] LABS: ALT (SGPT) 1934 U/L (0-35)
[2024-02-26 16:38] LABS: AST (SGOT) 3018 U/L (14-36)
--- NOTE | 2024-02-26 17:57 | PTCARENOTE ---
see nursing worklist. pt sinus rythym on monitor. this afternoons labs drawn and ast/alt improved. hospitalist notified. no further acetedote ordered. pt medicated x 2 with roxicodone for c/o bilateral knee, back and hip pain with adequate pain
relief. appetite is good. no c/o nausea. spoke with and updated poson control this am.
[2024-02-26] MEDS: ATIVAN 0.5 MG PO (22:13)
[2024-02-27] VITALS (8 sets, daily range): BP systolic 113–134; BP diastolic 59–96; BMI 23.8
[2024-02-27] MEDS: ROXICODONE 5 MG PO ×5 (02:18→18:22)
--- NOTE | 2024-02-27 05:47 | PTCARENOTE ---
Patient requesting prn oxycodone throughout the night for her back pain; pt would benefit from a stool softener since she has not has a BM. Up to BSC, steady gait. HR increases to 120s when OOB. Decreases back to baseline (NSR) when back to bed, pt
asymptomatic. Refused SCDs. MSAS negative. Denies N/V/D. Call campos within reach. Calls appropriately.
[2024-02-27 06:10] LABS: Hematocrit 27.7 % (37.0-47.0); Hemoglobin 9.3 g/dL (12.0-16.0); Mean Corp Hgb Conc. 33.6 g/dL (33.0-37.0); Mean Corpuscular Hgb 33.1 pg (27.0-31.0); Mean Corpuscular Volume 98.6 fL (81.0-99.0); Mean Platelet Volume 10.1 fL (7.4-10.4); Platelet Count 185 10^3/uL (130-400); Red Blood Cell Count 2.81 10^6/uL (4.20-5.40); Red Cell Dist. Width 16.6 % (11.5-14.5); White Blood Cell Count 6.4 10^3/uL (4.8-10.8)
[2024-02-27 06:27] LABS: INR 1.16; PT 14.6 Sec (11.4-14.6)
[2024-02-27 06:31] LABS: Albumin 3.1 g/dl (3.5-5.0); Alkaline Phosphatase 122 U/L (38-126); Blood Urea Nitrogen 9 mg/dl (7-17); Calcium 9.2 mg/dl (8.4-10.2); Carbon Dioxide 25 mmol/L (22-30); Chloride 105 mmol/L (98-107); Direct Bilirubin 0.6 mg/dl (0.0-0.4); Estimated Creatinine Clearance 67 ml/min; Glucose 122 mg/dl (70-99); Sodium 133 mmol/L (135-145); Total Bilirubin 1.3 mg/dl (0.2-1.3); Total Protein 5.6 g/dl (6.3-8.2); eGFR > 60.00
[2024-02-27 06:44] LABS: ALT (SGPT) 1639 U/L (0-35); AST (SGOT) 1469 U/L (14-36)
[2024-02-27] MEDS: QUESTRAN PO (07:22)
--- NOTE | 2024-02-27 07:25 | W.PN.HOSP.TC ---
Today's Communication/Plan
-
LFTs improving and PT/INR stabilized
Encourage ambulation
Will await GI clearance for discharge plan
Assessment / Plan
Assessment / Plan
Acute liver injury-secondary to Tylenol toxicity
-Patient received per protocol and will be continued till LFTs improve . INR improved this morning.
- GI following
- Tylenol Level normalized
-Finished NAC protocol
Acute Kidney Injury, likely for poor oral intake and GI losses
-Normalized creatinine. Appetite good. Hold further fluids.
-Avoid NSAIDs
-Follow labs
Abdominal Pain / Vomiting, likely gastritis related to medication non-compliance and NSAID use
-Allow clear liquids-advance diet per GI
-Continue Protonix IV BID will change to p.o.
-Continue Carafate BID
Back pain since the fall-recently taking Tylenol-will obtain plain x-rays. Continue with oxycodone
Anxiety
-Continue lorazepam
Alcohol Use Disorder
-Continue thiamine and folic acid
DVT proph: SCDs
Code Status: Full Code
DW GI team this am.
Anticipated Discharge: Within 24 hours
Subjective/Interval History
-
Date of Service: February 27, 2024
Her remaining complaint continues to be her left-sided buttock and low back pain but otherwise doing well overnight
Objective Data
-
Labs:
Laboratory Results
02/27/24
05:59
WBC 6.4
Hgb 9.3 L
Hct 27.7 L
Plt Count 185 D
PT 14.6
INR 1.16
Sodium 133 L
Potassium 5.0
Chloride 105
Carbon Dioxide 25
BUN 9
Creatinine 0.7
Glucose 122 H
Calcium 9.2
Total Bilirubin 1.3
AST 1469 H*
ALT 1639 H*
Alkaline Phosphatase 122
Vital Signs:
Vital Signs
Temp Pulse Resp BP Pulse Ox
98.5 F 97 24 116/72 97
02/27/24 03:09 02/27/24 06:07 02/27/24 06:07 02/27/24 06:07 02/27/24 06:09
I&O
02/26/24 02/27/24 02/28/24
06:59 06:59 06:59
Intake Total 518 / 518 1700 / 1700
Output Total 400 / 400
Balance 518 / 518 1300 / 1300
Review of Systems
-
History Source: Patient
Musculoskeletal: Reports Muscle Pain, Muscle Stiffness and Myalgias
Physical Exam
-
General: Well Developed
HEENT: Normocephalic
Respiratory: Clear to Auscultation
Cardiac: Regular Rhythm
GI: Soft
Musculoskeletal: No Clubbing and No Edema
Neuro: Awake
Psych: Calm
Data Reviewed
-
Total Time Spent with Patient (in minutes): 45
Labs: Labs Reviewed by me (Acetaminophen remains less than 10 LFTs continue to trend down both AST and ALT PT and INR 1.1 bilirubin 1.3/hemoglobin up to 9.3)
[2024-02-27] MEDS: NSS (PRESERVATIVE FREE) IV (07:51)
[2024-02-27] MEDS: CARAFATE SUSPENSION 1 GM PO ×2 (07:51→19:17)
[2024-02-27] MEDS: FOLVITE 1 MG PO (07:52)
[2024-02-27] MEDS: PROTONIX 40 MG PO (07:52)
[2024-02-27] MEDS: THIAMINE INJECTION 200 MG IV ×2 (07:52→19:18)
--- NOTE | 2024-02-27 10:35 | W.PN.GI.CBS2 ---
Addendum entered and electronically signed by Park Masterson MD 02/27/24 16:23:
I saw and examined the patient.
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
Comment:
Pt alert, oriented, no abd pain
no asterixis
impression
abnl lfts secondary to acetominophen toxicity
s/p NAC
plan:
continue to follow lfts and coags which have been improving
avoid hepatotoxic meds
Original Note:
Today's Communication / Plan
-
improving LFT's and INR- holding on transfer for now
avoid Tylenol and liver toxic medication
s/p NAC protocol completed
mental status remains intact, glucose stable
s/p stable lumbar X ray
CK level normal
cont PPI daily with hx esophagitis
no current diarrhea with recent c-diff
Continue cholestyramine, and carafate
Continue thiamine, folic acid, lorazepam
c/w low residue diet, she is tolerating well
educated patient and toxicity/ SE's of Tylenol and NSAID's
-next of kin which is her daughter Azul Pablo [phone] who lives in [place]
Assessment / Plan
-
68-year-old female with a past medical history significant for GERD, hiatal hernia, hypertension, alcohol abuse last drink 02/14/24, colitis, LA grade C/D esophagitis, recent admission with suspected C. difficile infection, prior GI bleed secondary
to peptic ulcer, IBS, suspected gout, anxiety, who initially presented to with complaints of nausea, vomiting and back pain after suffering a mechanical fall, found to have significantly elevated liver enzymes and a tylenol level of 129,
consistent with acetaminophen toxicity due to an accidental overdose. Due to rising INR in the setting of acetaminophen overdose, initial concerns for fulminant liver failure, however, now slow improvement in LFT's and INR/ s/p NAC protocol.
Impression: DILI 2/2 accidental tylenol overdose, started on NAC, mentation intact, no signs of encephalopathy.
s/p fall lumbar x ray stable
-hx recent diarrhea suspected c-diff
-ETOH abuse
-grade C/D esophagititis
-gERD
-CT imaging showing a 1.2 cm renal lesion, fatty liver, small hiatal hernia, mild interstitial edema, diverticulosis
-Recent admission with pancolitis on CT imaging
-Mildly elevated LFTs, now with elevated total bilirubin.
-History of chronically dilated common bile duct, status postcholecystectomy, MRCP in August 2023
Other pertinent medical history:
-Hypertension
-Hiatal hernia
-Anxiety/depression
-IBS
-Suspected gout
Plan:
improving LFT's and INR- holding on transfer for now
avoid Tylenol and liver toxic medication
s/p NAC protocol completed
mental status remains intact, glucose stable
s/p stable lumbar X ray
CK level normal
cont PPI daily with hx esophagitis
no current diarrhea with recent c-diff
-Continue cholestyramine, and carafate
-Continue thiamine, folic acid, lorazepam
-c/w low residue diet, she is tolerating well
educated patient and toxicity/ SE's of Tylenol and NSAID's
-next of kin which is her daughter Azul Pablo [phone] who lives in [place]
Subjective
Subjective
Date of Service: February 27, 2024
low residue diet no stools, feeling better but still with back pain
Objective
Data Reviewed
Laboratory Data:
Laboratory Results
02/27/24 05:59
02/27/24 05:59
Laboratory Results
PT 14.6 Sec (11.4-14.6) 02/27/24 05:59
INR 1.16 02/27/24 05:59
Magnesium 2.4 mg/dl (1.6-2.3) H 02/25/24 06:17
Total Bilirubin 1.3 mg/dl (0.2-1.3) 02/27/24 05:59
AST 1469 U/L (14-36) H* 02/27/24 05:59
ALT 1639 U/L (0-35) H* 02/27/24 05:59
Alkaline Phosphatase 122 U/L (38-126) 02/27/24 05:59
Lipase 147 U/L (23-300) 02/24/24 14:12
Vital Signs and I&O:
Vital Signs
Temp Pulse Resp BP Pulse Ox
98 F 88 18 127/68 96
02/27/24 07:20 02/27/24 08:00 02/27/24 08:00 02/27/24 07:53 02/27/24 08:04
I&O
02/26/24 02/27/24 02/28/24
06:59 06:59 06:59
Intake Total 518 / 518 1700 / 1700
Output Total 400 / 400
Balance 518 / 518 1300 / 1300
Physical Exam
Physical Exam
HEENT: Anicteric and Moist mucous membranes
Cardiology: Normal Sinus Rhythm
Pulmonary: Clear
GI: Soft, Non Distended and Non Tender
Extremities: No Edema
Neuro: Non Focal
[2024-02-27] MEDS: ATIVAN 0.5 MG PO (21:41)
[2024-02-28] VITALS (7 sets, daily range): BP systolic 102–156; BP diastolic 55–105; BMI 23.4
[2024-02-28] MEDS: BENADRYL 25 MG PO (01:06)
--- NOTE | 2024-02-28 01:43 | PTCARENOTE ---
pt with c/o itching all over body, no rash or hives noted. white bumps seen. tried using lotion to help with itching, no change in itchiness. 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
[2024-02-28] MEDS: ROXICODONE 5 MG PO ×3 (03:07→12:02)
[2024-02-28 06:36] LABS: Hematocrit 24.9 % (37.0-47.0); Hemoglobin 8.6 g/dL (12.0-16.0); Mean Corp Hgb Conc. 34.5 g/dL (33.0-37.0); Mean Corpuscular Hgb 33.1 pg (27.0-31.0); Mean Corpuscular Volume 95.8 fL (81.0-99.0); Mean Platelet Volume 9.9 fL (7.4-10.4); Platelet Count 200 10^3/uL (130-400); Red Cell Dist. Width 16.8 % (11.5-14.5); White Blood Cell Count 4.5 10^3/uL (4.8-10.8)
[2024-02-28 06:55] LABS: AST (SGOT) 356 U/L (14-36); Albumin 2.9 g/dl (3.5-5.0); Alkaline Phosphatase 104 U/L (38-126); Blood Urea Nitrogen 13 mg/dl (7-17); Calcium 9.2 mg/dl (8.4-10.2); Carbon Dioxide 30 mmol/L (22-30); Chloride 101 mmol/L (98-107); Estimated Creatinine Clearance 59 ml/min; Glucose 124 mg/dl (70-99); Sodium 137 mmol/L (135-145); Total Bilirubin 0.6 mg/dl (0.2-1.3); Total Protein 5.3 g/dl (6.3-8.2); eGFR > 60.00
[2024-02-28 07:07] LABS: ALT (SGPT) 985 U/L (0-35)
--- NOTE | 2024-02-28 07:41 | W.DS.TRANS ---
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
-
Discharge Instructions:
Discharge Diagnosis/Procedures Acetaminophen toxicity
Transaminitis in relation to acetaminophen
overdose
Diet No restrictions
Activity As tolerated
Driving Restrictions No driving for 1 week
Blood Work Follow-up liver transaminases in 1 week
Instructions:
Stand-Alone Forms:
Changes to Home Medications: Yes
Discharge Medications:
DC Medications w/original date entered in [employer]
famotidine 40 mg tablet 40 mg PO HS GERD 01/12/24
lorazepam 0.5 mg tablet 0.5 mg PO HS Anxiety 01/12/24
cholestyramine-aspartame 4 gram oral powder for susp in a packet (Cholestyramine Light) 1 ea PO DAILYPRN PRN diahrrea 02/24/24
oxycodone 5 mg tablet 5 mg PO Q4HPRN PRN mild to moderate pain #15 tabs 02/28/24
pantoprazole 40 mg tablet,delayed release 40 mg PO DAILY #30 tabs 02/28/24
sucralfate 100 mg/mL oral suspension 1 g (10 mL) PO BID #300 mL 02/28/24
Home Medication Changes
oxycodone 5 mg tablet 5 mg PO Q4HPRN PRN mild to moderate pain #15 tabs 02/28/24
pantoprazole 40 mg tablet,delayed release 40 mg PO DAILY #30 tabs 02/28/24
sucralfate 100 mg/mL oral suspension 1 g (10 mL) PO BID #300 mL 02/28/24
Pending Results: No
Total time spent discharging patient (in min): 37
[2024-02-28] MEDS: CARAFATE SUSPENSION 1 GM PO (07:57)
[2024-02-28] MEDS: VITAMIN B1 100 MG PO (07:57)
[2024-02-28] MEDS: FOLVITE 1 MG PO (07:58)
[2024-02-28] MEDS: QUESTRAN PO (07:58)
[2024-02-28] MEDS: PROTONIX 40 MG PO (07:58)
--- NOTE | 2024-02-28 10:54 | W.DCSUMMARY ---
Discharge Summary
Discharge Data
Date of Admission: 02/24/24
Date of Discharge: 02/28/24
-
Pending Results: No
Hospital Course
68-year-old female with a past medical history of gastroesophageal reflux disease hiatal hernia hypertension alcohol abuse last drink of which was on 13 February in our and documented class LA grade C to D esophagitis and a recent admission and C.
difficile infection and prior GI bleed presented with nausea vomiting and back pain after suffering a mechanical fall and found to have significant elevated liver transaminases on presentation she had stated indiscriminate usage of acetaminophen for
her pain in her acetaminophen level on presentation was 129 consistent with acetaminophen toxicity based in relation to an accidental overdose. She had an elevated PT/INR prompting need for admission to the observe and treat possible impending
fulminant liver failure she was placed on a N-acetylcysteine protocol and admitted to the intermediate care unit. She had consultations with the gastroenterology group. With documented trending down of her liver transaminases daily basis and
improvement to normality over PT/INR there is no evidence of any rhabdomyolysis based on a normal CPK. Based on GI evaluation she did not meet [facility] criteria or need for transfer to a tertiary care center. She completed her course of
N-acetylcysteine protocol he was placed on pantoprazole IV twice daily in relation to her known history of gastroesophageal reflux and esophagitis she was continued on her cholestyramine that she had been taken and based on her alcohol history she
was maintained on thiamine and folic acid and lorazepam as needed there is no significant withdrawal symptoms or signs throughout the length of her admission. Her mentation remained intact there was no signs of encephalopathy or asterixis.
Reported concern continues to be her buttock pain from her mechanical fall and she will be given a short course of oxycodone explaining to her in detail that oxycodone like other narcotic medications is also metabolized through the liver and
judicious usage of should be undertaken she was given only a 15 dose amount at discharge
Admission diagnosis will be acetaminophen toxicity in relation to accidental overdose
Transaminitis and resolution
Prior history of esophagitis
Discharge Plan
-
Patient Disposition: Home (Routine Discharge)
Discharge Diagnosis/Procedures: Acetaminophen toxicity
Transaminitis in relation to acetaminophen overdose
Diet: No restrictions
Activity: As tolerated
Driving Restrictions: No driving for 1 week
Blood Work: Follow-up liver transaminases in 1 week
Referrals:
Ishaan Ames DO [Family Provider] - in one week (Will need follow-up liver transaminases determining)
Prescriptions:
New
sucralfate 100 mg/mL Suspension
1 g PO BID Qty: 300 0RF
pantoprazole 40 mg Tablet,Delayed Release (Dr/Ec)
40 mg PO DAILY Qty: 30 0RF
oxycodone 5 mg Tablet
5 mg PO Q4HPRN PRN (Reason: mild to moderate pain) Qty: 15 0RF
Continued
famotidine 40 mg Tablet
40 mg PO HS
lorazepam 0.5 mg Tablet
0.5 mg PO HS
Patient Comments:
02-24-24-last filled on 11/15/2023 for 7 tablets per PDMP.
cholestyramine-aspartame [Cholestyramine Light] 4 gram powder in packet
1 ea PO DAILYPRN PRN (Reason: diahrrea)
Discharge Orders:
Discharge Patient (As Directed); Ordered 02/28/24
Ordered By: Chris King
Discharge Date and Time
Print Language: AZERI
--- NOTE | 2024-02-28 15:03 | CM ---
Patient with Dx Acute liver injury-secondary to Tylenol toxicity, JULI, Abdominal Pain / Vomiting, Back pain since the fall, Alcohol Use Disorder.
Met with patient who was preparing for discharge today. The patient says she feels ready to go home. IMM completed. She will take an Uber transport home.
No CM d/c needs identified.
Plan home today.
--- NOTE | 2024-02-28 15:42 | PTCARENOTE ---
Patient is alert and oriented x 3. She denies abdominal pain or discomfort or GI distress. She report lower back pain and bilateral hip pain since admission. Pt now on roxicodone at discharge and has verbalized understanding of Tylenol/nsaid
interactions. Pt reports her family physician is in [facility]. and she has not seen him recently. She acknowledges understanding that there is important need of follow up with him for lab work and medical assessment. Pt discharged to home via Uber where
she lives with an elderly friend and her son. No further questions at discharge and pt left without event
== END 2024-02-28 14:39 | disposition home or self-care (01) | DRG 392 ==
LOC: IMU 21:34
PROVIDERS: Emergency Medicine; Internal Medicine; Nurse Practitioner; Nurse Practitioner Family; Physician Assistant Medical; ADMITTING PHYSICIAN Hospitalist; ATTENDING PHYSICIAN Internal Medicine; CONSULT PHYSICIAN Internal Medicine; EMERGENCY PHYSICIAN Student in an Organized Health Care Education/Training Program; FAMILY PHYSICIAN Family Medicine
DX: K29.70 Gastritis, unspecified, without bleeding (principal); N17.9 Acute kidney failure, unspecified; T39.1X1A Poisoning by 4-Aminophenol derivatives, accidental (unintentional), initial encounter; K71.8 Toxic liver disease with other disorders of liver; F10.10 Alcohol abuse, uncomplicated; E87.6 Hypokalemia; F41.9 Anxiety disorder, unspecified; F32.A Depression, unspecified; I10 Essential (primary) hypertension; K21.00 Gastro-esophageal reflux disease with esophagitis, without bleeding; K44.9 Diaphragmatic hernia without obstruction or gangrene; Z91.148 Patient's other noncompliance with medication regimen for other reason
CPT/HCPCS: 72100; 74176; 80053; 80076; 80143; 81003; 81015; 82077; 82248; 82550; 83690; 83735; 84132; 85025; 85027; 85610; 87086; 96361; 96374; 96375; 99285; J0132; J7030

== ENCOUNTER 2024-03-08 14:14 | Emergency (ER) | payer MEDICARE, SELFPAY ==
[2024-03-08 14:19] VITALS: BP 154/81; BMI 24.9
[2024-03-08 14:41] LABS: % Basophils 1.2 % (0-2); % Eosinophils 0.5 % (0-6); % Immature Granulocytes 0.6 % (0-0.5); % Lymphocytes 13.5 % (20.5-51.1); % Monocytes 5.3 % (1.7-9.3); % Neutrophils 78.9 % (42.2-75.2); Absolute Basophils 0.1 10^3/uL (0-0.2); Absolute Immature Granulocytes 0.1 10^3/uL (0-0.05); Absolute Lymphocytes 1.2 10^3/uL (1.2-3.4); Absolute Monocytes 0.5 10^3/uL (0.1-0.6); Hematocrit 29.6 % (37.0-47.0); Hemoglobin 10.6 g/dL (12.0-16.0); Mean Corp Hgb Conc. 35.8 g/dL (33.0-37.0); Mean Corpuscular Hgb 32.3 pg (27.0-31.0); Mean Corpuscular Volume 90.2 fL (81.0-99.0); Nucleated Red Blood Cells % 0 %; Red Blood Cell Count 3.28 10^6/uL (4.20-5.40); Red Cell Dist. Width 16.6 % (11.5-14.5); White Blood Cell Count 8.9 10^3/uL (4.8-10.8)
[2024-03-08 15:04] LABS: Mean Platelet Volume 9.8 fL (7.4-10.4); Platelet Count 435 10^3/uL (130-400)
[2024-03-08 15:10] LABS: Acetaminophen < 10 ug/ml (10-30); Alcohol None Detected; Blood Urea Nitrogen 19 mg/dl (7-17); Calcium 9.5 mg/dl (8.4-10.2); Carbon Dioxide 20 mmol/L (22-30); Chloride 101 mmol/L (98-107); Estimated Creatinine Clearance 59 ml/min; Glucose 154 mg/dl (70-99); Sodium 137 mmol/L (135-145); eGFR > 60.00
--- NOTE | 2024-03-08 15:13 | ED.GENMED ---
History of Present Illness
General
Chief Complaint: Abdominal Symptoms
Time Seen by Provider: 03/08/24 14:54
Travel History
Have you had any contact with someone who has COVID-19?: Unable to Answer
Do you have any symptoms of coronavirus? Fever > 100 degrees, chills, cough, shortness of breath, sore throat, loss of taste or smell, muscle aches, or headache?: Unable to Answer
History of Present Illness
History of Present Illness:
Patient is a 68-year-old female with a history of gastritis, peptic ulcer disease, colitis, hiatal hernia, recent admission for acetaminophen toxicity status post NAC. She presents to the the emergency department with diffuse abdominal pain worse
in the right lower quadrant. Associated with nausea vomiting and diarrhea. Denies any bloody stools. Symptoms started this morning. Symptoms are more severe than her usual pain. Denies fevers or chills.
Past History
Past History
ED Past Medical History: Cancer (Skin Cancer face), GERD, HTN, Psychiatric (Anxiety), Other (GI bleeding, HIatal hernia. Ulcers, anemia. Migraine headaches) and Other (recent colitis November/December 2023, severe esophagitis, alcohol abuse,
benzodiazepine withdrawal)
ED Past Surgical History: Appendectomy, Cholecystectomy, Gynecological (hysterectomy, RUE epicondylitis X 2) and Orthopedic
Patient has exhibited threatening behavior?: No
PSI?: No
Social History
Tobacco: Former smoker
Alcohol: Binge drinker
Drug: None and Other (History of benzodiazepine abuse)
Personal:
Living: alone
Family History
Family History: Other (Noncontributory)
Phy Exam
Physical Exam
Physical Exam:
GENERAL APPEARANCE: NAD, well developed/ well nourished
EYES lids/conjunctiva normal
EARS/NOSE/THROAT Mucous membranes moist, uvula midline without oral pharyngeal erythema, exudate or swelling
HEAD/NECK normocephalic atraumatic, neck is supple.
RESPIRATORY respiratory effort normal, speaks in full sentences, no accessory muscle use. Lungs clear to auscultation without rhonchi, wheezes, rales
CARDIAC Regular rate and rhythm, no edema.
ABDOMINAL Soft, diffuse tenderness worst in the RLQ, no distension
MUSCLES/EXTREMITIES No abnormal range of motion, no swelling.
SKIN Warm, pink and dry. No rashes
NEUROLOGICAL Speech is clear and appropriate. Normal level of consciousness. 5/5 strength in all extremities, +intention tremor, none at rest
PSYCH Normal mood and affect. Judgement/competence is appropriate
Course
Orders/Labs/Results
Orders:
Orders
03/08/24
Electrocardiogram (*1) Stat
Reason for Study: Chest Pain
Comment: DONE
03/08/24 14:33
Acetaminophen Urgent
Alcohol Urgent
Basic Metabolic Panel Urgent
Complete Blood Count/With Diff Urgent
03/08/24 15:08
0.9% Sodium Chloride 1000 ml [Nss] 1,000 ml IV BOLUS
Ondansetron Injectable [Zofran] 4 mg IV NOW STA
Pantoprazole [Protonix IV] 40 mg IV NOW STA
03/08/24 15:11
CT Abd/Pel (IV only)-DH only Urgent
Comment:
Reason For Exam: RLQ pain
03/08/24 16:00
Troponin I Urgent
03/08/24 17:27
LFT [Sgzaf-Kvrd-Rujpdpg] Urgent
Lipase Urgent
Potassium Urgent
03/08/24 17:28
Ondansetron Injectable [Zofran] 4 mg IV NOW STA
03/08/24 17:29
Electrocardiogram (*1) Stat
Reason for Study: Other
Other Reason for Exam: chest pain
03/08/24 18:07
Urinalysis Urgent
Abnormal Lab Results
03/08/24
14:33
RBC 3.28 L 10^6/uL
(4.20-5.40)
Hgb 10.6 L g/dL
(12.0-16.0)
Hct 29.6 L %
(37.0-47.0)
MCH 32.3 H pg
(27.0-31.0)
RDW 16.6 H %
(11.5-14.5)
Plt Count 435 H 10^3/uL
(130-400)
Abs Immat Gran (auto) 0.1 H 10^3/uL
(0-0.05)
Absolute Neuts (auto) 7.0 H 10^3/uL
(1.4-6.5)
Immature Gran % 0.6 H %
(0-0.5)
Neutrophils % 78.9 H %
(42.2-75.2)
Lymphocytes % 13.5 L %
(20.5-51.1)
Carbon Dioxide 20 L mmol/L
(22-30)
BUN 19 H mg/dl
(7-17)
Glucose 154 H mg/dl
(70-99)
Acetaminophen < 10 L ug/ml
(10-30)
03/08/24 14:33
Vital Signs
Initial and Last Documented VS:
Initial Vital Signs
Temp Pulse Resp BP Pulse Ox
98.0 F 106 17 154/81 100
03/08/24 14:19 03/08/24 14:19 03/08/24 14:19 03/08/24 14:19 03/08/24 14:19
Last Documented Vital Signs
Temp Pulse Resp BP Pulse Ox
98.0 F 106 17 154/81 100
03/08/24 14:19 03/08/24 14:19 03/08/24 14:19 03/08/24 14:03/08/24 14:19
*Critical Care Note
Total Time (30-74mins, 75-104mins- exclusive of procedures): Not Applicable
ED Attending Note
-
Portions of this chart may have been created with voice recognition software.� Occasional wrong word or��sound alike� substitutions may have occurred due to the inherent limitations of voice recognition software.
Discharge Plan
Departure
Prescriptions:
No Action
sucralfate 100 mg/mL suspension
0 ml PO .SEE BELOW
Patient Comments:
03/08/2024, pt. is unsure of the dose that she takes and the frequency for which this med. is prescribed. Pt. does not know how often she takes this med.
lorazepam 0.5 mg Tablet
0.5 mg PO HS PRN (Reason: anxiety)
Patient Comments:
03/08/2024, last filled on 11/25/2023 for 7 tablets per pharmacy records.
pantoprazole 40 mg tablet,delayed release (DR/EC)
40 mg PO DAILY
Referrals:
Ishaan Ames DO [Family Provider] -
Discharge Date and Time
Print Language: POLISH
[2024-03-08] MEDS: NSS 1000 IV (16:03)
[2024-03-08] MEDS: PROTONIX IV 40 MG IV (16:03)
[2024-03-08] MEDS: ZOFRAN 4 MG IV ×2 (16:03→18:18)
[2024-03-08 16:29] VITALS: BP 140/124
[2024-03-08 16:54] LABS: Troponin I < 0.012 ng/ml
[2024-03-08 17:00] VITALS: BP 130/63
[2024-03-08 18:25] VITALS: BP 135/75
[2024-03-08 18:49] LABS: ALT (SGPT) 93 U/L (0-35); AST (SGOT) 36 U/L (14-36); Albumin 3.8 g/dl (3.5-5.0); Alkaline Phosphatase 141 U/L (38-126); Direct Bilirubin 0.2 mg/dl (0.0-0.4); Lipase 196 U/L (23-300); Potassium 4.1 mmol/L (3.5-5.1); Total Bilirubin 1.2 mg/dl (0.2-1.3); Total Protein 6.4 g/dl (6.3-8.2)
[2024-03-08 19:04] VITALS: BP 158/78
[2024-03-08 20:01] VITALS: BP 156/83
[2024-03-08 20:02] LABS: Urine Albumin Negative (Neg - Trace); Urine Bilirubin Negative (Negative); Urine Character Clear (Clear); Urine Color Straw; Urine Glucose Negative (Negative); Urine Ketone Negative (Negative); Urine Leukocyte Negative (Negative); Urine Nitrite Negative (Negative); Urine Occult Blood Negative (Negative); Urine Urobilinogen Negative (Neg - 1+)
--- NOTE | 2024-03-08 20:02 | ED.GENMED ---
History of Present Illness
General
Chief Complaint: Abdominal Symptoms
Time Seen by Provider: 03/08/24 14:54
Travel History
Have you had any contact with someone who has COVID-19?: Unable to Answer
Do you have any symptoms of coronavirus? Fever > 100 degrees, chills, cough, shortness of breath, sore throat, loss of taste or smell, muscle aches, or headache?: Unable to Answer
Past History
Past History
ED Past Medical History: Cancer (Skin Cancer face), GERD, HTN, Psychiatric (Anxiety), Other (GI bleeding, HIatal hernia. Ulcers, anemia. Migraine headaches) and Other (recent colitis November/December 2023, severe esophagitis, alcohol abuse,
benzodiazepine withdrawal)
ED Past Surgical History: Appendectomy, Cholecystectomy, Gynecological (hysterectomy, RUE epicondylitis X 2) and Orthopedic
Patient has exhibited threatening behavior?: No
PSI?: No
Social History
Tobacco: Former smoker
Alcohol: Binge drinker
Drug: None and Other (History of benzodiazepine abuse)
Personal:
Living: alone
Family History
Family History: Other (Noncontributory)
Course
Orders/Labs/Results
Orders:
Orders
03/08/24
Electrocardiogram (*1) Stat
Reason for Study: Chest Pain
Comment: DONE
03/08/24 14:33
Acetaminophen Urgent
Alcohol Urgent
Basic Metabolic Panel Urgent
Complete Blood Count/With Diff Urgent
03/08/24 15:08
0.9% Sodium Chloride 1000 ml [Nss] 1,000 ml IV BOLUS
Ondansetron Injectable [Zofran] 4 mg IV NOW STA
Pantoprazole [Protonix IV] 40 mg IV NOW STA
03/08/24 15:11
CT Abd/Pel (IV only)-DH only Urgent
Comment:
Reason For Exam: RLQ pain
03/08/24 16:00
Troponin I Urgent
03/08/24 17:28
Ondansetron Injectable [Zofran] 4 mg IV NOW STA
03/08/24 17:29
Electrocardiogram (*1) Stat
Reason for Study: Other
Other Reason for Exam: chest pain
03/08/24 18:24
LFT [Qybro-Dvko-Mrezypk] Urgent
Lipase Urgent
Potassium Urgent
03/08/24 19:51
Urinalysis Urgent
Date Specimen was Collected: 03/08/24
Time Specimen was Collected: 19:11
Abnormal Lab Results
03/08/24 03/08/24
14:33 18:24
RBC 3.28 L 10^6/uL
(4.20-5.40)
Hgb 10.6 L g/dL
(12.0-16.0)
Hct 29.6 L %
(37.0-47.0)
MCH 32.3 H pg
(27.0-31.0)
RDW 16.6 H %
(11.5-14.5)
Plt Count 435 H 10^3/uL
(130-400)
Abs Immat Gran (auto) 0.1 H 10^3/uL
(0-0.05)
Absolute Neuts (auto) 7.0 H 10^3/uL
(1.4-6.5)
Immature Gran % 0.6 H %
(0-0.5)
Neutrophils % 78.9 H %
(42.2-75.2)
Lymphocytes % 13.5 L %
(20.5-51.1)
Carbon Dioxide 20 L mmol/L
(22-30)
BUN 19 H mg/dl
(7-17)
Glucose 154 H mg/dl
(70-99)
ALT 93 H U/L
(0-35)
Alkaline Phosphatase 141 H U/L
(38-126)
Acetaminophen < 10 L ug/ml
(10-30)
03/08/24 14:33
03/08/24 18:24
Vital Signs
Initial and Last Documented VS:
Initial Vital Signs
Pulse Resp
108 24
03/08/24 14:16 03/08/24 14:16
Last Documented Vital Signs
Temp Pulse Resp BP Pulse Ox
98.0 F 94 18 158/78 100
03/08/24 14:19 03/08/24 19:45 03/08/24 18:45 03/08/24 19:04 03/08/24 14:19
ED Attending Note
-
Portions of this chart may have been created with voice recognition software.� Occasional wrong word or��sound alike� substitutions may have occurred due to the inherent limitations of voice recognition software.
Discharge Plan
Departure
Patient Disposition: Home (Routine Discharge)
Date of Disposition: 03/08/24
Time of Disposition: 20:02
Patient with high blood pressure during this ER visit?: Yes
Condition: Good
Discharge Problem:
Abdominal pain
Instructions: Abdominal Pain, BLOOD PRESSURE
Prescriptions:
No Action
sucralfate 100 mg/mL suspension
0 ml PO .SEE BELOW
Patient Comments:
03/08/2024, pt. is unsure of the dose that she takes and the frequency for which this med. is prescribed. Pt. does not know how often she takes this med.
lorazepam 0.5 mg Tablet
0.5 mg PO HS PRN (Reason: anxiety)
Patient Comments:
03/08/2024, last filled on 11/25/2023 for 7 tablets per pharmacy records.
pantoprazole 40 mg tablet,delayed release (DR/EC)
40 mg PO DAILY
Referrals:
Ishaan Ames, DO [Family Provider] - Next open appointment
Activity Restrictions/Additional Instructions:
IF YOU DEVELOP FEVER, VOMITING, INCREASING/NEW ABDOMINAL PAIN, CHEST PAIN, TROUBLE BREATHING OR OTHER WORRISOME SIGNS, GO TO THE ER IMMEDIATELY!
Interventions
Interventions:
*Risk Screen - Suicide Last Done: 03/08/24 15:33
*General Assessment Last Done: 03/08/24 15:33
*Neglect/Abuse Screening Last Done: 03/08/24 15:33
ED- Fall Risk Assessment Last Done: 03/08/24 15:33
*ED COVID-19 Vaccine History Last Done: 03/08/24 15:33
IM-Qrxbzk-Kfyzewlxhn Assessment Last Done: 03/08/24 15:33
Discharge Date and Time
Print Language: SLOVENIAN
== END 2024-03-08 20:24 | disposition home or self-care (01) ==
LOC: EMR 14:14
PROVIDERS: EMERGENCY PHYSICIAN Emergency Medicine; FAMILY PHYSICIAN Family Medicine
DX: R10.84 Generalized abdominal pain (principal); K21.9 Gastro-esophageal reflux disease without esophagitis; I10 Essential (primary) hypertension; F41.9 Anxiety disorder, unspecified; K44.9 Diaphragmatic hernia without obstruction or gangrene; D64.9 Anemia, unspecified; R00.0 Tachycardia, unspecified; Z85.828 Personal history of other malignant neoplasm of skin; Z87.11 Personal history of peptic ulcer disease; Z87.19 Personal history of other diseases of the digestive system; Z87.891 Personal history of nicotine dependence; Z90.49 Acquired absence of other specified parts of digestive tract; Z90.710 Acquired absence of both cervix and uterus
CPT/HCPCS: 99284; 96374; 96375; 74177; 80048; 80076; 80143; 81003; 82077; 83690; 84132; 84484; 85025; 93005; Q9967

== ENCOUNTER 2024-03-14 23:34 | Inpatient (IN) | payer MEDICARE, SELFPAY ==
[2024-03-14] VITALS (9 sets, daily range): BP systolic 78–110; BP diastolic 41–62; BMI 22.7
--- NOTE | 2024-03-14 22:10 | ED.GENMED ---
History of Present Illness
<NIDHI Neal - Last Filed: 03/15/24 01:08>
General
Chief Complaint: Abdominal Pain
Source: patient
Exam Limitations: none
Time Seen by Provider: 03/14/24 21:56
History of Present Illness
History of Present Illness:
This is a 68 year old female that comes in with c/o nausea/vomiting and abd pain. States that she started with last night with abd pain. States that the pain got worse today and she is vomiting. States that she has pain all over her abd. State that
she felt SOB, had chest pain yesterday, diarrhea, headache, dizziness. Denies any fever, chills, urinary burning.
Past History
<NIDHI Neal - Last Filed: 03/15/24 01:08>
Past History
ED Past Medical History: Cancer (Skin Cancer face), GERD, HTN, Psychiatric (Anxiety), Other (GI bleeding, Hiatal hernia. Ulcers, anemia. Migraine headaches, Colitis) and Other (recent colitis November/December 2023, severe esophagitis, alcohol abuse,
benzodiazepine withdrawal)
ED Past Surgical History: Appendectomy, Cholecystectomy, Gynecological (hysterectomy,), Orthopedic and Other (Mohs skin surgery, RUE epicondylitis X 2)
Patient has exhibited threatening behavior?: No
PSI?: No
Social History
Tobacco: Former smoker
Alcohol: Binge drinker
Drug: None and Other (History of benzodiazepine abuse)
Personal:
Living: alone
Family History
Family History: Other (Noncontributory)
Review of Systems
<NIDHI Neal - Last Filed: 03/15/24 01:08>
Review of Systems
All Other Systems: ROS reviewed and negative except as documented in HPI and ROS
Constitutional: Reports no symptoms; Denies fever or chills
Respiratory: Reports trouble breathing; Denies cough
Cardiac: Reports chest pain
ABD/GI: Reports abdominal pain, nausea, vomiting and diarrhea
: Reports no symptoms; Denies dysuria, frequency or urgency
Musculoskeletal: Reports no symptoms
Skin: Reports no symptoms
Neurological: Reports dizzy and headache
Psychiatric: Reports no symptoms
Phy Exam
<NIDHI Neal - Last Filed: 03/15/24 01:08>
General Physical Exam
General Presentation: mild distress
General age: appears stated age
General Skin: warm, dry and pale
General Habitus: elderly
General Mental: alert
General Hydration: dry mucous membranes
ENT Exam
ENT Exam: TM's normal, pharynx normal and neck supple
Eye Exam
Eye Exam: EOMI
Cardiovascular Exam
Cardiovascular Exam: no edema, normal peripheral pulses and tachycardia
Pulmonary Exam
Pulmonary Exam: lungs clear, no respiratory distress, no rales, chest non tender, no crackles, no rhonchi, no wheezing and no cough
Gastrointestinal Exam
Gastrointestinal Exam: soft, no organomegaly, no pulsatile mass, non distended, tender (Generalized tenderness with palpation) and other (Hypoactive bowel sounds. Patient was found to have Burgundy hem positive stool. (Patient states that she was
not aware of this))
Musculoskeletal Exam
Musculoskeletal Exam: full ROM and no edema
Skin Exam
Skin Exam: warm/dry, no rash, no petechia and pallor
Psychiatric Exam
Psychiatric Exam: normal mood/affect
Course
<NIDHI Neal - Last Filed: 03/15/24 01:08>
Orders/Labs/Results
Orders:
Orders
03/14/24 21:49
Electrocardiogram (*1) Urgent
Reason for Study: Abdominal Pain
IV Insert/Care/Rem.- Treatment PRN
03/14/24 21:50
EKG- Treatment ONCE
03/14/24 22:09
0.9% Sodium Chloride 1000 ml [Nss] 1,000 ml IV BOLUS
Ondansetron Injectable [Zofran] 4 mg IV NOW STA
Pantoprazole 80 mg/100 ml Nss [Protonix] 80 mg in 100 ml IV NOW
Pantoprazole [Protonix IV] 80 mg IV NOW STA
03/14/24 22:40
Type And Crossmatch Urgent
Alcohol Urgent
Basic Metabolic Panel Urgent
Comment: NO K
Complete Blood Count/With Diff Urgent
Lipase Urgent
03/14/24 22:48
Ondansetron Injectable [Zofran] 4 mg .ROUTE .STK-MED ONE
03/14/24 23:00
Flush (0.9% Sodium Chloride) [Flush (Nss)] See Dose Instructions IV PER PROTOCOL
03/14/24 23:03
ABG [Arterial Blood Gas] Urgent
%Oxygen/Room Air: 2l
03/14/24 23:06
* Blood Bank Products Urgent
Blood Bank Products: *Packed RBC Leuko(PRBC's)
Quantity: 2
Transfuse Today: Yes
Reason: Bleeding
IV Insert/Care/Rem.- Treatment PRN
03/14/24 23:29
Sodium Bicarbonate 50 meq IV NOW STA
03/14/24 23:33
Lactate Level [Lactic Acid] Urgent
03/14/24 23:34
CR Chest Portable - 1 View Urgent
Comment:
Reason For Exam: SOB
Reason Study Needs to be Portable: Patient Unstable
Abnormal Lab Results
03/14/24 03/14/24 03/14/24
22:40 23:03 23:33
RBC 2.10 L 10^6/uL
(4.20-5.40)
Hgb 6.9 L* D g/dL
(12.0-16.0)
Hct 23.1 L %
(37.0-47.0)
MCV 110.0 H D fL
(81.0-99.0)
MCH 32.9 H pg
(27.0-31.0)
MCHC 29.9 L g/dL
(33.0-37.0)
RDW 17.5 H %
(11.5-14.5)
Plt Count 120 L D 10^3/uL
(130-400)
MPV 10.6 H fL
(7.4-10.4)
Abs Immat Gran (auto) 0.3 H 10^3/uL
(0-0.05)
Absolute Neuts (auto) 7.1 H 10^3/uL
(1.4-6.5)
Absolute Monos (auto) 0.7 H 10^3/uL
(0.1-0.6)
Immature Gran % 3.3 H %
(0-0.5)
Lymphocytes % 17.0 L %
(20.5-51.1)
pH 6.94 L*
(7.35-7.45)
pCO2 13 L* mmHg
(32-35)
pO2 138 H mmHg
(83-108)
HCO3 < 3.0 L* mmol/L
(21-28)
ABG O2 Sat (Measured) 99.0 H %
(94-98)
Carbon Dioxide < 5 L* mmol/L
(22-30)
BUN 20 H mg/dl
(7-17)
Creatinine 2.0 H mg/dL
(0.6-1.0)
Glucose 101 H mg/dl
(70-99)
Lactic Acid 17.5 H* mmol/L
(0.7-2.0)
Calcium 6.5 L* mg/dl
(8.4-10.2)
Crossmatch IS Only See Detail
03/14/24 22:40
03/14/24 23:07
H/H very low. Anemic, Plt low, Metabolic acidosis, Dehydration. Acute renal insufficiency, Glucose nonfasting, hypocalcemia, lipase normal at 69, Alcohol 51 carbon dioxide <5, lactic acid 17.5, AST elevation (chronic alcohol use), Troponin <0.012,
total protein low.
Vital Signs
Initial and Last Documented VS:
Initial Vital Signs
Temp Pulse Resp BP Pulse Ox
97.5 F 111 20 102/49 99
03/14/24 21:45 03/14/24 21:45 03/14/24 21:45 03/14/24 21:45 03/14/24 21:45
Last Documented Vital Signs
Temp Pulse Resp BP Pulse Ox
97.6 F 115 17 128/85 100
03/15/24 00:58 03/15/24 00:47 03/15/24 00:47 03/15/24 00:47 03/15/24 00:15
<Chandana Juares, - Last Filed: 03/14/24 23:07>
Orders/Labs/Results
Orders:
Orders
03/14/24 21:49
Electrocardiogram (*1) Urgent
Reason for Study: Abdominal Pain
IV Insert/Care/Rem.- Treatment PRN
03/14/24 21:50
EKG- Treatment ONCE
03/14/24 22:09
0.9% Sodium Chloride 1000 ml [Nss] 1,000 ml IV BOLUS
Ondansetron Injectable [Zofran] 4 mg IV NOW STA
Pantoprazole 80 mg/100 ml Nss [Protonix] 80 mg in 100 ml IV NOW
Pantoprazole [Protonix IV] 80 mg IV NOW STA
03/14/24 22:40
Type And Crossmatch Urgent
Alcohol Urgent
Basic Metabolic Panel Urgent
Comment: NO K
Complete Blood Count/With Diff Urgent
Lipase Urgent
03/14/24 22:48
Ondansetron Injectable [Zofran] 4 mg .ROUTE .STK-MED ONE
03/14/24 23:00
Flush (0.9% Sodium Chloride) [Flush (Nss)] See Dose Instructions IV PER PROTOCOL
03/14/24 23:03
ABG [Arterial Blood Gas] Urgent
%Oxygen/Room Air: 2l
03/14/24 23:06
* Blood Bank Products Urgent
Blood Bank Products: *Packed RBC Leuko(PRBC's)
Quantity: 2
Transfuse Today: Yes
Reason: Bleeding
IV Insert/Care/Rem.- Treatment PRN
03/14/24 23:29
Sodium Bicarbonate 50 meq IV NOW STA
03/14/24 23:33
Lactate Level [Lactic Acid] Urgent
03/14/24 23:34
CR Chest Portable - 1 View Urgent
Comment:
Reason For Exam: SOB
Reason Study Needs to be Portable: Patient Unstable
Abnormal Lab Results
03/14/24 03/14/24 03/14/24
22:40 23:03 23:33
RBC 2.10 L 10^6/uL
(4.20-5.40)
Hgb 6.9 L* D g/dL
(12.0-16.0)
Hct 23.1 L %
(37.0-47.0)
MCV 110.0 H D fL
(81.0-99.0)
MCH 32.9 H pg
(27.0-31.0)
MCHC 29.9 L g/dL
(33.0-37.0)
RDW 17.5 H %
(11.5-14.5)
Plt Count 120 L D 10^3/uL
(130-400)
MPV 10.6 H fL
(7.4-10.4)
Abs Immat Gran (auto) 0.3 H 10^3/uL
(0-0.05)
Absolute Neuts (auto) 7.1 H 10^3/uL
(1.4-6.5)
Absolute Monos (auto) 0.7 H 10^3/uL
(0.1-0.6)
Immature Gran % 3.3 H %
(0-0.5)
Lymphocytes % 17.0 L %
(20.5-51.1)
pH 6.94 L*
(7.35-7.45)
pCO2 13 L* mmHg
(32-35)
pO2 138 H mmHg
(83-108)
HCO3 < 3.0 L* mmol/L
(21-28)
ABG O2 Sat (Measured) 99.0 H %
(94-98)
Carbon Dioxide < 5 L* mmol/L
(22-30)
BUN 20 H mg/dl
(7-17)
Creatinine 2.0 H mg/dL
(0.6-1.0)
Glucose 101 H mg/dl
(70-99)
Lactic Acid 17.5 H* mmol/L
(0.7-2.0)
Calcium 6.5 L* mg/dl
(8.4-10.2)
Crossmatch IS Only See Detail
03/14/24 22:40
03/14/24 23:07
Vital Signs
Initial and Last Documented VS:
Initial Vital Signs
Temp Pulse Resp BP Pulse Ox
97.5 F 111 20 102/49 99
03/14/24 21:45 03/14/24 21:45 03/14/24 21:45 03/14/24 21:45 03/14/24 21:45
Last Documented Vital Signs
Temp Pulse Resp BP Pulse Ox
97.6 F 115 17 128/85 100
03/15/24 00:58 03/15/24 00:47 03/15/24 00:47 03/15/24 00:47 03/15/24 00:15
<NIDHI Neal - Last Filed: 03/15/24 01:08>
MDM/Problems Addressed
Differential Diagnosis Includes:
GI bleeding. Colitis, Anemia,
MDM/Problems Addressed:
This is a 68 year old female that comes in with c/o abd pain and vomiting. States that this started yesterday and got worse today. States that she has pain all over the abd.
will get labs, CT scan, IV fluids and IV Protonix as patient was found to have Burgundy stool.
Chronic conditions affecting care:
Colitis, Anemia, Gi bleeding
Acute Exacerbation and/or Progression of Chronic Illness:
Gi bleeding, Anemia
<NIDHI Neal - Last Filed: 03/15/24 01:08>
*Radiology
Radiology exam reviewed: preliminary read by ED provider (Chest-Increased vascular congestion. ), radiology read reviewed (CT night hawk-No acute abnormality with in the abd or pelvis. No bowel obstruction. Status post cholecystectomy. Distal
esophageal wall thickening, can be correlated with signs or symptoms of esophagitis. Given mild irregularity, consider direct visualization to exclude the presence of underlying ), all reviewed NAD by ED Provider (Ct cont- mass. Incidentals:
diverticulosis without evidence of diverticulitis. No obstructive uropathy. No hepatic or pancreatic mass. Small hiatal hernia. No abdominal aortic aneurysm. Again seen is compression deformity of L1 vertebral body. No acute abnormality within the
visualized lungs. ) and other (CT cont- No acute abnormality within the visualized soft tissues. )
*Pulse Oximetry
Patient hypoxic: no
*Reel Slitter Interpretation
Rate: tachycardiac
Heart Rate: 105
Rhythm: sinus tachycardia
*Critical Care Note
Total Time (30-74mins, 75-104mins- exclusive of procedures): Not Applicable
<Chandana Juares DO - Last Filed: 03/14/24 23:07>
*Critical Care Note
Total Time (30-74mins, 75-104mins- exclusive of procedures): 33
ED Attending Note
<NIDHI Neal - Last Filed: 03/15/24 01:08>
-
Portions of this chart may have been created with voice recognition software.� Occasional wrong word or��sound alike� substitutions may have occurred due to the inherent limitations of voice recognition software.
<Chandana Juares DO - Last Filed: 03/14/24 23:07>
ED Attending Note
Patient seen and examined by attending physician: Yes
I performed the substantive portion of visit, reviewed & personally made and approve the management plan that is documented in note by myself or LAXMI.: Yes
ED Attending Note:
Seen with EMERGENCY SERVICE WORKER examined apparently ill-appearing female maroon stool penetrator prior upper and lower endoscopies noted plan for eval resuscitation PPI verbal consent obtained for transfusion follow closely
Discharge Plan
Departure
Patient Disposition: Admit
Date of Disposition: 03/14/24
Time of Disposition: 22:53
Admit to: ICU
Presentation/result/management discussed w/ accepting MD/DO: Hospitalist
Patient with high blood pressure during this ER visit?: No
Condition: Fair
Covid-19: Not Applicable
Discharge Problem:
Acute GI bleeding, Abdominal pain, Nausea & vomiting
Interventions
Interventions:
*Risk Screen - Suicide Last Done: 03/14/24 21:45
*General Assessment Last Done: 03/14/24 21:45
*Neglect/Abuse Screening Last Done: 03/14/24 21:45
*ED COVID-19 Vaccine History Last Done: 03/14/24 21:45
*Nursing Disposition Last Done: 03/15/24 00:50
LS-Pfquiv-Okyrbbgfvc Assessment Last Done: 03/14/24 22:09
[2024-03-14] MEDS: NSS 1000 IV (22:18)
[2024-03-14] MEDS: ZOFRAN 4 MG IV (22:18)
[2024-03-14] MEDS: PROTONIX IV 80 MG IV (22:18)
[2024-03-14] MEDS: PROTONIX 100 IV (22:18)
[2024-03-14 22:54] LABS: % Basophils 0.6 % (0-2); % Eosinophils 0.1 % (0-6); % Immature Granulocytes 3.3 % (0-0.5); % Monocytes 7.4 % (1.7-9.3); % Neutrophils 71.6 % (42.2-75.2); Absolute Basophils 0.1 10^3/uL (0-0.2); Absolute Immature Granulocytes 0.3 10^3/uL (0-0.05); Absolute Lymphocytes 1.7 10^3/uL (1.2-3.4); Absolute Monocytes 0.7 10^3/uL (0.1-0.6); Absolute Neutrophils 7.1 10^3/uL (1.4-6.5); Hematocrit 23.1 % (37.0-47.0); Mean Corp Hgb Conc. 29.9 g/dL (33.0-37.0); Mean Corpuscular Hgb 32.9 pg (27.0-31.0); Mean Platelet Volume 10.6 fL (7.4-10.4); Nucleated Red Blood Cells % 0.4 %; Red Cell Dist. Width 17.5 % (11.5-14.5); White Blood Cell Count 9.9 10^3/uL (4.8-10.8)
[2024-03-14 23:04] LABS: Hemoglobin 6.9 g/dL (12.0-16.0)
[2024-03-14 23:06] LABS: Platelet Count 120 10^3/uL (130-400)
[2024-03-14 23:10] LABS: B.E. -27.4 mmol/L; PO2 138 mmHg (83-108)
[2024-03-14 23:11] LABS: Alcohol 51 mg/dl; Blood Urea Nitrogen 20 mg/dl (7-17); Calcium 6.5 mg/dl (8.4-10.2); Carbon Dioxide < 5 mmol/L (22-30); Chloride 104 mmol/L (98-107); Estimated Creatinine Clearance 24 ml/min; Glucose 101 mg/dl (70-99); Sodium 142 mmol/L (135-145); eGFR 26.38
[2024-03-14 23:13] LABS: O2 Therapy %Oxygen/Room Air 2l
[2024-03-14 23:15] LABS: HCO3 < 3.0 mmol/L (21-28); PCO2 13 mmHg (32-35); pH 6.94 (7.35-7.45)
--- NOTE | 2024-03-14 23:15 | HPS.HSE ---
Addendum entered and electronically signed by Darien De Souza MD 03/15/24 02:26:
�
NEG CT AP for acute pathology. No BWO. Distal esophageal wall thickening.
Original Note:
Family Physician
-
Family Physician: INTERVIEWE UNKNOWN - PT NOT
Chief Complaint
-
N/V/D and abdominal pain
History of Present Illness
68F HX ETOH use disorder, BiB EMS from home for N/V/D.
Evaluation for abdominal pain with N/V/D
- acute onset since last night started with worsening abdominal pain with diffuse tenderness
- started vomiting today
- also diarrhea
Per ER AP:
HoB POS Burgundy colored stool
Medical History
Past Medical History
Past Medical History: Reports Other
Additional Past Medical History:
Gastritis
Grade C/D Esophagitis
Alcohol Use Disorder
Irritable Bowel Syndrome
C Diff
Anxiety
Past Surgical History: Reports Other
Additional Past Surgical History:
Cholecystectomy
Appendectomy
Hysterectomy
Moh's Procedure
Right Upper Extremity Epicondylitis Surgery
Social History
Tobacco: Non-smoker
Alcohol: Other (Patient known history of alcohol use disorder, but is currently denies any alcohol use)
Drug: None
Personal: Single
Family History
Family History: Other (Father: Colon Cancer)
Allergies / Home Medications
Allergies reflects when Allergies were last updated in [facility].
Home Medications with original date entered in [facility]
Allergy/Medication List:
Allergies
Allergy/AdvReac Type Severity Reaction Status Date / Time
aspirin Allergy Unknown Verified 02/24/24 10:58
gabapentin Allergy Unknown Verified 02/24/24 10:58
NSAIDS (Non-Steroidal Allergy Unknown Verified 02/24/24 10:58
Anti-Inflamma
[id number]-[id number]-[id number] Reductase Allergy Swelling Verified 02/24/24 10:58
Inhibitor
Sulfa (Sulfonamide Allergy Unknown Verified 02/24/24 10:58
Antibiotics)
Home Medications
famotidine 40 mg tablet 40 mg PO HS GERD 01/12/24
lorazepam 0.5 mg tablet 0.5 mg PO HS Anxiety 01/12/24
cholestyramine-aspartame 4 gram oral powder for susp in a packet (Cholestyramine Light) 1 ea PO DAILYPRN PRN diahrrea 02/24/24
Review of Systems
-
A 12 point ROS was completed and negative except as noted: Yes
Constitutional: Denies Fever or Chills
Respiratory: Denies Cough or Trouble Breathing
Cardiac: Denies Chest Pain or Palpitations
Abdomen/GI: Reports See HPI
Physical Exam
Vital Signs
Vital Signs
Temp Pulse Resp BP Pulse Ox
97.5 F 101 31 81/46 96
03/14/24 21:45 03/14/24 22:45 03/14/24 22:45 03/14/24 22:41 03/14/24 22:30
Physical Exam
General: Comfortable and Conversant
HEENT: Anicteric and Moist mucous membranes
Respiratory: Clear and Non Labored Respirations
Cardiac: S1/S2 and Regular Rhythm
GI: Soft and Tender (diffusely tender )
Rectal: Red (Burgundy color ), Hem Positive and Other (per ER UI ENGINEER )
Genito-urinary: Deferred by me
Musculoskeletal: No Clubbing and No Cyanosis
Skin: Warm and Dry
Neuro: Awake, Alert and Nonfocal/grossly intact
Laboratory Results
-
03/14/24 22:40
Laboratory Results
Total Bilirubin Cancelled 03/14/24 22:40
AST Cancelled 03/14/24 22:40
ALT Cancelled 03/14/24 22:40
Alkaline Phosphatase Cancelled 03/14/24 22:40
Data Reviewed
-
CT Scan: Other (pending )
Lab Data: Labs Reviewed by me
Old Records: Reviewed
Impression/Plan
-
Data
Hgb 6.9 - baseline
Plt 120 - baseline
ETOH level
ABG
Lipase
TPNI
CXR pending
CT AP with IV pending
Last hospitalist admission: 02/24/24 - 02/28/24 PDx:
Acetaminophen toxicity in relation to accidental overdose
Transaminitis
Prior history of esophagitis
ASSESSMENT & PLAN
Pending Rx reconciliation
Pending Rx reconciliation
Acute HoB POS burgundy colored stool GIB
Severely hypotensive concerns for hemorrhagic shock
HX Gastritis, Grade C/D Esophagitis
HX Alcohol Use Disorder
HX NSIADS use
- await CT AP
- T & C
- Agree with Blood Tx
- IVF
- PPI gtt
- H & H q6h
- avoid NSAIDS
- GI consult
- Web Machine Tender consult
Severe metabolic acidosis with secondary resp alkalosis
DDX: excessive UGI loss vs BW ischemia
- urgent LA
- LR IVF
Prerenal JULI due to acute GI loss
- IVFs
- Trend Cr
ETOH Use Disorder
At risk for Acute ETOH WDS
- MSAS
- ETOH WD protocol
-Continue thiamine and folic acid
Anxiety
- cont TROMPER lorazepam
Total Critical Care Time___50__ minutes.
I was immediately available to the patient and staff. I personally examined, reviewed labs, diagnostic images/reports, interpretations, treatment plans, discussed patient care with other providers and family or caregivers (if patient is unable to
make decisions), entered orders as appropriate and documented the medical record.
[2024-03-14 23:22] LABS: Lipase 69 U/L (23-300)
[2024-03-14] MEDS: NSS 500 IV (23:51)
[2024-03-15] VITALS (86 sets, daily range): BP systolic 73–137; BP diastolic 26–85; BMI 23.2
[2024-03-15] MEDS: SODIUM BICARBONATE 50 MEQ IV (00:09)
[2024-03-15] MEDS: BENADRYL 12.5 MG IV (00:10)
[2024-03-15] MEDS: COMPAZINE 10 MG IV ×2 (00:10→19:35)
[2024-03-15 00:13] LABS: ALT (SGPT) 33 U/L (0-35); AST (SGOT) 65 U/L (14-36); Albumin 3.5 g/dl (3.5-5.0); Alkaline Phosphatase 94 U/L (38-126); Blood Urea Nitrogen 22 mg/dl (7-17); Carbon Dioxide < 5 mmol/L (22-30); Chloride 101 mmol/L (98-107); Estimated Creatinine Clearance 20 ml/min; Glucose 103 mg/dl (70-99); Potassium 3.5 mmol/L (3.5-5.1); Sodium 142 mmol/L (135-145); Total Bilirubin 0.4 mg/dl (0.2-1.3); Total Protein 5.4 g/dl (6.3-8.2); eGFR 22.31
[2024-03-15 00:13] LABS: Lactic Acid 17.5 mmol/L (0.7-2.0)
[2024-03-15 00:15] LABS: Troponin I < 0.012 ng/ml
--- NOTE | 2024-03-15 01:00 | PTCARENOTE ---
Patiebt received from ED, pale, oriented x3. Sinus Tachycardia, afebrile, blood pressure as documented. palpable pulses throughout, no edema noted. Lungs clear pulse ox 100% on 2L. Abdomen soft round with positive bowel sounds. Complaints of
nausea. Incontinent of burgudy stool, rectal trumpet placed. #20 g in LAC, #20 g right thumb and #20 g in right arm all flushed and patent. CHG bath given.
[2024-03-15] MEDS: LEVOPHED 250 IV (01:52)
[2024-03-15] MEDS: SODIUM BICARBONATE 1150 MEQ IV ×3 (01:52→21:27)
[2024-03-15] MEDS: CALCIUM GLUCONATE 130 MG IV ×2 (01:55→20:26)
--- NOTE | 2024-03-15 02:05 | PTCARENOTE ---
Levophed gtt started
[2024-03-15] MEDS: ZOSYN 50 IV ×4 (02:53→19:35)
[2024-03-15] MEDS: THIAMINE INJECTION 200 MG IV ×3 (03:17→17:17)
[2024-03-15] MEDS: ZOFRAN 4 MG IV ×2 (03:17→15:03)
[2024-03-15 05:43] LABS: Ionized Calcium 0.89 mMOL/L (1.15-1.33)
[2024-03-15 05:58] LABS: Lactic Acid 5.8 mmol/L (0.7-2.0)
[2024-03-15 06:05] LABS: INR 1.45; PT 17.5 Sec (11.4-14.6)
[2024-03-15 06:06] LABS: APTT 34.7 Sec (23.4-35.0); Fibrinogen 200 MG/DL (199-459)
[2024-03-15 06:08] LABS: Hematocrit 21.1 % (37.0-47.0)
[2024-03-15 06:12] LABS: Blood Urea Nitrogen 26 mg/dl (7-17); Carbon Dioxide 11 mmol/L (22-30); Chloride 97 mmol/L (98-107); Estimated Creatinine Clearance 22 ml/min; Glucose 188 mg/dl (70-99); Hemoglobin 6.9 g/dL (12.0-16.0); Phosphorus 8.2 mg/dl (2.5-4.5); Potassium 4.2 mmol/L (3.5-5.1); Sodium 136 mmol/L (135-145); eGFR 24.88
[2024-03-15 06:33] LABS: B-Hydroxybutyrate > 9.0 mmol/L (0.02-0.27)
[2024-03-15] MEDS: MAGNESIUM SULFATE 100 IV (06:44)
--- NOTE | 2024-03-15 07:32 | CON.INTV ---
Consultation
Consultation Request
Date/Time Consultation Requested: 03-15-24
Date/Time Consultation Performed: 03-15-24
Requesting Provider: Hospitalist Jillian
Performing Provider: Dr Gil
Reason for Consultation: GIB
Medical History
-
Chief Complaint: abdominal pain, burgundy stools
History of Present Illness:
Mrs Trudy Longoria is a 68/W adm 03-14 with acute onset abd pain, n/v/d and burgundy color stools.
Known h/o chronic alcoholism, alcoholic liver disease, chronic severe reflux esophagitis (multiple EGDs), accidental APAP overdose (adm early February 2024).
Known to GI, seen at bedside at ICU with Dr Warner. Adm Hgb 6.9, received 2U PRBCs, to receive 3rd U this AM. On IVFs and low dose NE.
Reporting mild CP with no radiatioin, denies NSAIDs/ Denies recent ETOH use but informed her serum ETOH level is 51 mg/dL.
CT abd/p s/c suspicious for duodenal ulcer, Dr Warner will proceed to emergent/urgent UGED today
Past Medical History
Past Medical History: Other (see A&P for PMH/PSH)
Social History
Tobacco: Former Smoker
Alcohol: Binge Drinker
Drug: Other (reported h/o bzd abuse)
Personal:
Living: Alone
Employment: Not Employed
Family History
Family History: Reviewed & Not Pertinent
Allergies / Home Medications
Allergies
Allergy/AdvReac Type Severity Reaction Status Date / Time
aspirin Allergy Unknown Verified 03/14/24 21:48
gabapentin Allergy Unknown Verified 03/14/24 21:48
NSAIDS (Non-Steroidal Allergy Unknown Verified 03/14/24 21:48
Anti-Inflamma
Rnalzkn-ZUX-SxZ Reductase Allergy Swelling Verified 03/14/24 21:48
Inhibitor
Sulfa (Sulfonamide Allergy Unknown Verified 03/14/24 21:48
Antibiotics)
Home Medications
�Medication �Instructions �Recorded �Confirmed �Last Taken �Type
lorazepam 0.5 mg tablet 0.5 mg PO HS PRN anxiety 03/08/24 03/08/24 Unknown History
pantoprazole 40 mg tablet,delayed 40 mg PO DAILY 03/08/24 03/08/24 Unknown History
release
sucralfate 100 mg/mL oral 0 ml PO .SEE BELOW 03/08/24 03/08/24 Unknown History
suspension
Review of Systems
-
History Source: Patient
All other systems: Negative unless noted
Constitutional: Fatigue
Abdomen/GI: Abdominal Pain, Nausea, Vomiting, Diarrhea and Other (burgundy color stools)
Neuro: Dizzy, Headache and Weakness
Vitals / Labs / Diagnostic Testing
Vital Signs
Temp Pulse Resp BP Pulse Ox
98.9 F 118 24 118/57 99
03/15/24 07:20 03/15/24 05:30 03/15/24 05:30 03/15/24 05:30 03/15/24 05:30
Lab Data
03/15/24 05:35
Laboratory Results
03/14/24 03/15/24
23:03 05:35
PT 17.5 H
INR 1.45
APTT 34.7
pH 6.94 L*
pCO2 13 L*
pO2 138 H
HCO3 < 3.0 L*
O2 Delivery Level %oxygen/room air 2l
Diagnostic Testing:
Physical Exam
-
HEENT: Normocephalic, Moist Mucous Membranes and Thrush (n)
Cardiovascular: Regular Rhythm, Murmur (n), Peripheral Edema, Calf Tenderness and JVD (n)
Respiratory: Clear and Non-Labored Respirations
GI: Soft, Non Distended and Tender
Neurology: Awake, Oriented and No Motor Deficits
Skin: Warm
General: Respiratory Distress (n)
Assessment
-
Assessment:
Mrs Trudy Longoria is a 68/W adm 03-14 with acute onset abd pain, n/v/d and burgundy color stools. Known h/o chronic alcoholism, alcoholic liver disease, chronic severe reflux esophagitis (multiple EGDs), accidental APAP overdose (adm early February
2023). Known to GI, seen at bedside at ICU with Dr Warner. Adm Hgb 6.9, received 2U PRBCs, to receive 3rd U this AM. On IVFs and low dose NE. Reporting mild CP with no radiatioin, denies NSAIDs/ Denies recent ETOH use but informed her serum ETOH
level is 51 mg/dL. CT abd/p s/c suspicious for duodenal ulcer
Impression:
Acute abdominal pain
Duodenal ulcer suspected on noncontrasted CT 03-15
Acute on chronic severe anemia, adm Hgb 6.9
Acute mild thrombocytopenia
Severe metabolic acidosis, lactic acidosis
JULI, recurrent
Hypocalcemia, hypomagnesemia
Serum ETOH level 51 mg/dL on adm
Conditions POOL TECHNICIAN:
APAP accidental overdose, adm early February 2024
Arrhythmia
Mild chronic gastritis, GEJ inflammation, H pylori negative (UGED 01-20-24). Colonic tubular adenomas (colonoscopy 01-20-24)
GERD
HTN
Anxiety
Chronic diarrhea
Alcohol related gastritis/esophagitis
Chronic dilated common bile duct
Fatty liver
BPPV
Migraine with aura
Orthostatic hypotension
Moderate-sized hiatal hernia
Hypomagnesemia
Cholecystectomy
Former Smoker
Chronic alcoholism
Plan:
Adm with acute abd pain, burgundy stools, hypotension, metabolic acidosis, positive ETOH serum level
Continue O2 protocol
Asp precs as able
IS
IVFs to continue
Low dose NE at this juncture
PRBCs: 2U since adm, 3rd U pending
Continue empiric zosyn
Added blood cxs, UA/Ucx
Continue protonix gtt
Known to GI, d/w Dr Warner at bedside, CT abd/p s/c suspicious for duodenal ulcer
Will need to proceed to urgent UGED today
Reports mild CP
Adm EKG without acute findings x mild STach
Adm trop normal, will trend
Likely demand ischemia in setting of severe acute anemia
JULI
Likely prerenal
IVFs
Renal US, U lytes
Monitor UO
Monitor for ETOH withdrawal
SCDs
D/w TECHNICAL ASST, d/w Dr Warner
Critical care time: 40 min, excluding procedures
Prognosis guarded
Diagnostic tests:
CXR 03-14-24: portable, no infiltrates
Abd/p CT s/c 03-14:
IMPRESSION:
1. Wall thickening of the first and second portions of the duodenum suggesting duodenitis. Pocket of gas with surrounding hyperemia in the region of the duodenal bulb considered at least suspicious for a peptic ulcer. Limited evaluation in the
absence of oral and intravenous contrast.
2. Small hiatal hernia with wall thickening at the gastroesophageal junction. An endoscopy can be considered for further evaluation of the gastroesophageal and duodenal findings.
3. Severe hepatic steatosis.
4. Bilateral renal cysts.
5. Colonic diverticulosis.
TTE 10-07-23
CONCLUSIONS
Normal left ventricular chamber size with normal left ventricular systolic function. Left ventricular ejection fraction is 60%. Normal regional wall motion. Normal left ventricular wall thickness. Stage I diastolic dysfunction
suggestive of abnormal relaxation.
Normal right ventricular size and function.
Normal atria.
No significant valve abnormalities.
The IVC is mildly dilated and does not collapse. Right atrial pressure estimated at 12 mmHg.
Mild pulmonary hypertension. PASP estimated at 41 mmHg.
[2024-03-15] MEDS: PROTONIX 100 IV (07:59)
[2024-03-15] MEDS: FOLVITE PO (07:59)
--- NOTE | 2024-03-15 08:06 | CON.GI ---
Consultation
-
Date/Time Consultation Requested: 03/15/24 7:24am
Date/Time Consultation Performed: 03/15/24 8:53am
Requesting Provider: Darien De Souza
Performing Provider: Ramin Warner
Reason for Consultation: GIB
Medical History
Chief Complaint / HPI
Chief Complaint: GIB
History of Present Illness:
Patient is a 68-year-old female who presents with nonbilious vomiting, abdominal pain, and burgundy stool. She was recently admitted for Tylenol overdose that was managed with N-acetylcysteine. She has a history of severe reflux esophagitis and
had endoscopy and colonoscopy in December of this year. Hemoglobin is 6.9 on admission. She was given 2 units of blood and repeat hemoglobin is 6.9. She is currently on pressors. She currently is reporting chest pain symptoms. She quantifies it as
a 9 out of 10. Troponin on admission was negative. She denies NSAID usage. Admission bicarb was less than 5 and lactate was 17.5. With resuscitation bicarb came up to 11 and bicarb is down to 5.8. She is also in acute renal failure with a
creatinine of 2. CT of the abdomen pelvis shows wall thickening of the first and second portions of the duodenum suggesting duodenitis as well as pockets of gas surrounding hyperemia in the region of the duodenal bulb suspicious for peptic ulcer.
Past Medical History
Past Medical History: GERD (LA grade C/D esophagitis on EGD in 2022, questionable history of peptic ulcer disease with prior GI bleed), Psychiatric (Anxiety, depression) and Other (IBS, suspected gout, history of C. difficile antigen positive,
chronic anemia)
Past Surgical History: Appendectomy, Cholecystectomy and Gynecological (Hysterectomy, right upper extremity epicondylitis x 2)
Social History
Tobacco: Non-Smoker
Alcohol: Daily
Drug: None
Personal: Single
Living: With Roomate
Family History
Family History: Reviewed & Not Pertinent
Allergies / Home Medications
Allergy/AdvReac Type Severity Reaction Status Date / Time
aspirin Allergy Unknown Verified 06/22/24 21:48
gabapentin Allergy Unknown Verified 03/14/24 21:48
NSAIDS (Non-Steroidal Allergy Unknown Verified 03/14/24 21:48
Anti-Inflamma
[id number] Reductase Allergy Swelling Verified 03/14/24 21:48
Inhibitor
Sulfa (Sulfonamide Allergy Unknown Verified 03/14/24 21:48
Antibiotics)
�Medication �Instructions �Recorded
lorazepam 0.5 mg tablet 0.5 mg PO HS PRN anxiety 03/08/24
pantoprazole 40 mg tablet,delayed 40 mg PO DAILY 03/08/24
release
sucralfate 100 mg/mL oral 0 ml PO .SEE BELOW 03/08/24
suspension
Review of Systems
-
All other systems: A 12 pt ROS was Negative except as stated above in HPI
Vital Signs
Temp Pulse Resp BP Pulse Ox
98.9 F 118 24 118/57 99
03/15/24 07:20 03/15/24 05:30 03/15/24 05:30 03/15/24 05:30 03/15/24 05:30
Physical Exam
Exam
HEENT: Normocephalic and Atraumatic
Respiratory: Non Labored Respirations
GI: Soft, Non Distended and Tender (diffuse moderate)
Results
WBC 9.9 10^3/uL (4.8-10.8) 03/14/24 22:40
Hgb 6.9 g/dL (12.0-16.0) L* 03/15/24 05:35
Hct 21.1 % (37.0-47.0) L 03/15/24 05:35
MCV 110.0 fL (81.0-99.0) H D 03/14/24 22:40
Plt Count 120 10^3/uL (130-400) L D 03/14/24 22:40
Absolute Neuts (auto) 7.1 10^3/uL (1.4-6.5) H 03/14/24 22:40
PT 17.5 Sec (11.4-14.6) H 03/15/24 05:35
INR 1.45 03/15/24 05:35
APTT 34.7 Sec (23.4-35.0) 03/15/24 05:35
Sodium 136 mmol/L (135-145) 03/15/24 05:35
Potassium 4.2 mmol/L (3.5-5.1) 03/15/24 05:35
Chloride 97 mmol/L (98-107) L 03/15/24 05:35
Carbon Dioxide 11 mmol/L (22-30) L* 03/15/24 05:35
BUN 26 mg/dl (7-17) H 03/15/24 05:35
Creatinine 2.1 mg/dL (0.6-1.0) H 03/15/24 05:35
Calcium 7.0 mg/dl (8.4-10.2) L 03/15/24 05:35
Total Bilirubin 0.4 mg/dl (0.2-1.3) 03/14/24 23:43
AST 65 U/L (14-36) H 03/14/24 23:43
ALT 33 U/L (0-35) 03/14/24 23:43
Alkaline Phosphatase 94 U/L (38-126) 03/14/24 23:43
Lipase 69 U/L (23-300) 03/14/24 22:40
Diagnostic Image Results:
Prior GI Procedures:
EGD:
Colonoscopy:
Assessment / Plan
-
Impression:
GIB. Acute blood loss anemia
CP
Thickening of duodenum on CT suggesting PUD
ARF
Metabolic acidosis
Recent Tylenol overdose
Recommendations:
EGD to evaluate and treat possible DU
Continue resuscitation, PRBC, IVF
Protonix gtt
NPO
-
-
Thank you for consultation and allowing me to participate in the patient's care. Please call the solvent station attendant GI physician during the after hours with any questions or concerns.
[2024-03-15] MEDS: CALCIUM CHLORIDE 10% SYRINGE 60 MG IV (08:49)
--- NOTE | 2024-03-15 10:00 | PTCARENOTE ---
Pt. reported 9/10 sharp chest pain, worsening on inhale @ 0845. EKG- ST. Dr. Paulino and Dr. Gil aware. Troponin drawn and sent to lab. Cards tank car reconditioner'd. Troponin/EKG results relayed to cardio, Dr. Valdez. S/P 1H pt. reported CP, reports pain
has improved to 7. MD group aware.
--- NOTE | 2024-03-15 10:18 | CON.CAR ---
Consultation
Consultation Request
Date/Time Consultation Requested: 03/15/24 at 10 AM
Date/Time Consultation Performed: 03/15/24 at 10 AM
Requesting Provider: Dr. Paulino
Performing Provider: Dr. Valdez
Reason for Consultation: Chest discomfort, GI bleed
Medical History
-
History of Present Illness:
68-year-old woman with past medical history noted below who presented with abdominal pain nausea and vomiting. Acute onset. Diarrhea also reported. Burgundy colored stool reported in ER. Patient hypotensive. Patient admitted with acute GI
bleeding
Patient had a hemoglobin of 6.9. Given 2 units of blood and repeat hemoglobin 6.9.
Labs also notable for JULI with a creatinine of 2.1 metabolic acidosis with bicarb of 11. Lactic acidosis 5.8
Patient remains on pressors.
CT of abdomen and pelvis with wall thickening of the first and second portions of the duodenum suggesting duodenitis as well as pockets of gas surrounding hyperemia in the region of the duodenal bulb suspicious for peptic ulcer.
Patient does not provide detailed history. No prior cardiac disease. No known coronary disease. Prior to being hospitalized she said she be able to walk and go up a flight of stairs with no complaints of chest pain or shortness of breath.
Yesterday she presented with nausea vomiting abdominal pain also said she had some chest discomfort that lasted all day long. Despite this troponin was negative. Not currently having chest pain and she denies chest pain today she has had some
discomfort across her upper abdomen and has some abdominal discomfort with palpation as well.
Past medical history
History of Tylenol overdose
Gastritis
Esophagitis
Alcohol use disorder
Irritable bowel syndrome anxiety
Allergy to statins listed as swelling
Allergy to aspirin listed unknown 68-year-old woman with
ECG tracing reviewed 03/15/2024 sinus tachycardia without acute change.
Past Medical History
Past Medical History: Other (Past medical history Gastritis Esophagitis irritable bowel C. difficile Alcohol use disorder Cholecystectomy Hysterectomy Appendectomy)
Social History
Alcohol: Other (Patient states that she sometimes has 2 bloody Ivette's mostly just on weekends.)
Family History
Family History: Other (Denies family history of premature CAD)
Allergies / Home Medications
Allergy/AdvReac Type Severity Reaction Status Date / Time
aspirin Allergy Unknown Verified 03/14/24 21:48
gabapentin Allergy Unknown Verified 03/14/24 21:48
NSAIDS (Non-Steroidal Allergy Unknown Verified 03/14/24 21:48
Anti-Inflamma
[id number] Reductase Allergy Swelling Verified 03/14/24 21:48
Inhibitor
Sulfa (Sulfonamide Allergy Unknown Verified 03/14/24 21:48
Antibiotics)
�Medication �Instructions �Recorded �Confirmed �Type
lorazepam 0.5 mg tablet 0.5 mg PO HS PRN anxiety 03/08/24 03/08/24 History
pantoprazole 40 mg tablet,delayed 40 mg PO DAILY 03/08/24 03/08/24 History
release
sucralfate 100 mg/mL oral 0 ml PO .SEE BELOW 03/08/24 03/08/24 History
suspension
Review of Systems
-
All other systems: Negative unless noted
Physical Exam
Vital Signs
Temp Pulse Resp BP Pulse Ox
98.9 F 118 24 118/57 99
03/15/24 07:20 03/15/24 05:30 03/15/24 05:30 03/15/24 05:30 03/15/24 05:30
Lab Results
03/15/24 05:35
Troponin I < 0.012 ng/ml 03/14/24 23:43
Physical Exam
General: Other (Awake alert no distress eyes extract was intact external ear normal exam unremarkable)
HEENT: Normocephalic and Anicteric
Respiratory: Other (No wheezes rales or rhonchi)
Cardiac: Regular Rhythm
GI: Soft and Other (Mild upper abdominal discomfort with palpation. Deep palpation not performed due to discomfort. Positive bowel sounds)
Musculoskeletal: No Clubbing, No Cyanosis and No Edema
Neuro: Awake and Alert
Hematologic/Lymphatic: No Lymphadenopathy
Psych: Calm
Impression / Plan
-
Acute GI blood loss.. Initially concern regarding hemorrhagic shock. Patient was on pressors and received volume. Now off pressors.
-Hemoglobin 6.9 despite PRBCs
-Additional PRBCs as directed by primary team
-Evaluation and treatment of GI bleed as directed by GI.
-Although patient reportedly had some chest discomfort yesterday she denies having any chest discomfort today ECG without ischemic changes and troponin negative. Symptoms may be related to GI issues including vomiting she had yesterday. At this
point no clear evidence of coronary ischemia.
Even if patient had some cardiac related chest discomfort this of adding a severe anemia the main treatment would be to treat GI bleeding and treat anemia.
.Considering the importance of addressing this patient's GI bleeding I do not see any contraindication to proceeding with EGD.
.
Chest discomfort. Patient denies having any chest discomfort today. Reported some chest discomfort yesterday. Currently with upper abdominal discomfort consistent with GI issues and chest discomfort could have also been related. Despite chest
discomfort and severe anemia troponin negative and ECG without ischemic changes.
-Continue supportive treatment including treatment of anemia/GI bleeding,, blood pressure support.
-Will await troponin which is pending.
.
Hypotension. On patient's initial presentation there was reported concerns for hemorrhagic shock. Patient required pressors received IV fluids. Currently off pressors.
-Treat GI bleeding
-Monitor pressure.
.
Metabolic acidosis/lactic acidosis. Lactic acidosis. Improving. Bicarb less than 5 on presentationWith pH 6.9 on initially ABG.G. Now bicarb up to 11.. Patient also with JULI.
Additional treatment as directed by primary team and burring wheel operator.
.
JULI.
-Creatinine 2.1.
-Optimize hemodynamics and treat GI bleeding
.
Data Reviewed
-
EKG: Report Reviewed by me and Discussed with Physician
Radiology: Report Reviewed by me
CT Scan: Report Reviewed by me
Labs: Labs Reviewed by me
[2024-03-15 10:45] LABS: Troponin I 0.061 ng/ml
--- NOTE | 2024-03-15 11:45 | PTCARENOTE ---
PICC RN to bedside; placed R DL PICC @1145. Correct placement confirmed w cxr, Dr. Gil to bedside to read. GI labor delivery rn made aware of correct placement.
--- NOTE | 2024-03-15 12:31 | PTCARENOTE ---
Pt. cleared by cards for EGD. Report given to GI laborer syrup machine and pt. transported via bed to GI lab. Awaiting report from GI laborer syrup machine.
--- NOTE | 2024-03-15 12:57 | W.PN.UPDATE ---
Update Note
Progress Note Update
EGD done
Mild esophagitis
Food in stomach
No bleeding
No ulcer in duodenum
REC:
Keep NPO
Monitor Hgb
Continue resuscitation, PRBC, IVF/bicarb
Her presentation is possibly consistent with mesenteric ischemia (severe acidosis, lactate, GIB, severe pain)
CTA if Cr allows or urgently if not improving, but numbers have been improving since admission
Watch for DTs
--- NOTE | 2024-03-15 13:14 | W.PN.HOSP.TC ---
Addendum entered and electronically signed by Ramiro Paulino MD 03/15/24 16:24:
Patient's nurse reported that patient's left arm is red/warm where old IV line was and slightly more edematous --> ordered neurovascular checks of all extremities Q2H as well as LUE ultrasound to check for any DVT or any other pathology.
Original Note:
Today's Communication/Plan
-
Continue blood transfusion and monitoring labs, including CBC, BMP and lactate closely
Patient's presentation is possibly consistent with mesenteric ischemia (severe acidosis, lactate, GIB, severe pain)
CTA imaging if Creatine allows or urgently if not improving --> if not improving will need to call gastroenterology, interventional radiology and possibly colorectal surgery and vascular surgery STAT
Assessment / Plan
Assessment / Plan
Physical Exam
General: Not in acute distress
HEENT: Normocephalic
Respiratory: Clear to Auscultation Bilaterally
Cardiac: S1/S2 and Regular Rhythm
GI: Soft and Tender (diffusely tender )
Rectal: Red (Burgundy color ), Hem Positive and Other (per ER PATIENT EXPERIENCE COORDINATOR )
Genito-urinary: Deferred by me
Musculoskeletal: No Clubbing and No Cyanosis
Skin: Warm and Dry
Neuro: Awake, Alert and Nonfocal/grossly intact
Assessment/Plan
68 y/o female admitted on 03-14-24 with acute onset abdominal pain, nausea, vomiting, diarrhea and burgundy color stools.
Acute Abdominal Pain
Acute Bleeding Per Rectum
Acute on chronic severe anemia, adm Hgb 6.9
Acute mild thrombocytopenia
Hemorrhagic Shock
Chronic severe reflux esophagitis (multiple EGDs)
History of NSAIDs use
-Continue pressors, wean as tolerated
-CT abd/p was suspicious for duodenal ulcer -- but EGD on 03/15/24 was negative for such finding: no bleeding or ulcer
-GI consulted, recommendations appreciated
-As per GI, patient may have mesenteric ischemia but cannot have CTA with her renal function and Cr --> Dr. Warner of GI recommended monitoring BM, lactate and CBC for now
-Her presentation is possibly consistent with mesenteric ischemia (severe acidosis, lactate, GIB, severe pain)
-CTA if Cr allows or urgently if not improving, but numbers have been improving since admission
-Received 2 units PRBC on admission without improvement
-Additional PRBCs being transfused now
-Continue Protonix Drip
-H&H Q6H
-Avoid NSAIDS
-Nurse Anesthetist consulted, recommendations appreciated
-Continue empiric Zosyn
-Maintain NPO
Mild Chest Pain
-Appears musculoskeletal
-Check troponins
-Cardiology consulted, recommendations appreciated
Accidental APAP overdose (adm early February 2024)
Severe metabolic acidosis, lactic acidosis
JULI, recurrent
Hypocalcemia, hypomagnesemia
- urgent LA
- LR IVF
Prerenal JULI due to acute GI loss
- IVFs
- PRBCs being transfused
- Trend Cr
History of Alcohol Use Disorder/Chronic Alcoholism
Alcoholic Liver Disease
ETOH Use Disorder
Serum ETOH level 51 mg/dL on adm
-Continue monitoring MSAS
-Alcohol withdrawal protocol
-Continue thiamine and folic acid
Anxiety
- continue FOOD PREP WORKER Lorazepam
Additional History
Arrhythmia
HTN
Anxiety
Chronic diarrhea
Alcohol related gastritis/esophagitis
Chronic dilated common bile duct
Fatty liver
BPPV
Migraine with aura
Orthostatic hypotension
Moderate-sized hiatal hernia
Hypomagnesemia
Cholecystectomy
Former Smoker
Chronic alcoholism
DVT PPx: SCDs
Code Status: Full Code
Refractory anemia requiring multiple blood transfusions and pressors for blood pressure support all needing monitoring in the ICU, is a high-risk encounter.
Anticipated Discharge: > 48 hours
Subjective/Interval History
-
Date of Service: March 15, 2024
Patient was seen and examined. She reported abdominal tenderness.
Objective Data
-
Labs:
Laboratory Results
03/15/24 03/15/24 03/15/24
05:35 06:30 12:30
Hgb 6.9 L* Pending Pending
Hct 21.1 L Pending Pending
PT 17.5 H
INR 1.45
APTT 34.7
Sodium 136
Potassium 4.2
Chloride 97 L
Carbon Dioxide 11 L*
BUN 26 H
Creatinine 2.1 H
Glucose 188 H
Calcium 7.0 L
03/15/24
18:30
Hgb Pending
Hct Pending
PT
INR
APTT
Sodium
Potassium
Chloride
Carbon Dioxide
BUN
Creatinine
Glucose
Calcium
Vital Signs:
Vital Signs
Temp Pulse Resp BP Pulse Ox
98.5 F 118 24 118/57 99
03/15/24 11:05 03/15/24 05:30 03/15/24 05:30 03/15/24 05:30 03/15/24 05:30
I&O
03/14/24 03/15/24 03/16/24
06:59 06:59 06:59
Intake Total 2501.3 / 2618.8 817.5 / 817.5
Balance 2501.3 / 2618.8 817.5 / 817.5
[2024-03-15 14:20] LABS: Hematocrit 17.9 % (37.0-47.0); Hemoglobin 6.5 g/dL (12.0-16.0)
[2024-03-15 14:43] LABS: Lactic Acid 1.3 mmol/L (0.7-2.0)
[2024-03-15 15:43] LABS: Amphetamines Negative (Negative); Barbiturates Negative (Negative); Benzodiazepines Negative (Negative); Buprenorphine Negative (Negative); Cocaine Negative (Negative); Marijuana Negative (Negative); Methadone Negative (Negative); Methamphetamines Negative (Negative); Opiates Negative (Negative); Phencyclidine Negative (Negative); Tricyclic Antidepressants Negative (Negative)
[2024-03-15] MEDS: FOLVITE 50.2000000000000028 MG IV (17:17)
--- NOTE | 2024-03-15 17:33 | PTCARENOTE ---
Received pt. back from GI lab @ approx 1400; GI ammunition assembly i laborer reported no active bleeding found during procedure. Pt. remains w residual maroon/burgundy stools w clots; Dr. Warner aware. L arm noted to bed red/warm/+1 edema where previous peripheral AC
site was. Neurovascular check benign- see flow sheet. Dr. Paulino made aware and further orders received for LUE US. Dr. Gil updated, pt has mx incompatible meds; further orders received to keep peripherals below PICC. 1 unit PRBC
transfused. BP goal reached and levo gtt off @ 1700; SBP's remain above 90. Pt. assisted w laci care as needed, repositioned per protocol. Bed alarm active.
[2024-03-15 18:53] LABS: Hemoglobin 7.4 g/dL (12.0-16.0)
[2024-03-15 18:57] LABS: Hematocrit 19.9 % (37.0-47.0)
[2024-03-15 19:20] LABS: Troponin I 0.117 ng/ml
[2024-03-15 19:22] LABS: ALT (SGPT) 32 U/L (0-35); AST (SGOT) 62 U/L (14-36); Albumin 2.6 g/dl (3.5-5.0); Alkaline Phosphatase 70 U/L (38-126); Blood Urea Nitrogen 42 mg/dl (7-17); Calcium 6.9 mg/dl (8.4-10.2); Carbon Dioxide 26 mmol/L (22-30); Chloride 94 mmol/L (98-107); Estimated Creatinine Clearance 16 ml/min; Glucose 114 mg/dl (70-99); Potassium 3.5 mmol/L (3.5-5.1); Sodium 135 mmol/L (135-145); Total Bilirubin 1.2 mg/dl (0.2-1.3); Total Protein 4.3 g/dl (6.3-8.2); eGFR 16.89
[2024-03-15] MEDS: NSS (PRESERVATIVE FREE) 10 ML IV (19:35)
[2024-03-15] MEDS: PROTONIX IV 40 MG IV (19:35)
[2024-03-15] MEDS: MORPHINE SULFATE 1 MG IV (19:57)
--- NOTE | 2024-03-15 20:00 | PTCARENOTE ---
Received pt resting in bed, AAOx2, forgetful. ALVAREZ but weak. SR on tele. HR 80s. BP 90s/50s. Levophed remains off. Afebrile. LUE with +2 edema- unchanged per dayshift RN handoff. Neurovasc checks ongoing. Complaints of pressure in her chest- DELTA SYSTEM FREIGHT CAR CLEANER
notified. Morphine given. No other new orders. On 2L NC. Lungs CTA but dim at bases. Hyperactive bowel sounds. NPO. Incontinent burgundy stool at change of shift. Rectal trumpet placed. Nausea reported- compazine given as zofran not due yet. Will
monitor bladder scans. R DL PICC with bicarb gtt. Labs reviewed with DELTA SYSTEM FREIGHT CAR CLEANER- 1 unit PRBCs ordered. Monitoring
[2024-03-15] MEDS: ATIVAN 2 MG IV (20:41)
[2024-03-15] MEDS: NSS (PRESERVATIVE FREE) 1 ML IV (20:41)
[2024-03-16] VITALS (36 sets, daily range): BP systolic 85–169; BP diastolic 55–96; BMI 24.5
--- NOTE | 2024-03-16 00:07 | PTCARENOTE ---
1 unit PRBCs transfused per protocol without complication. Bladder scanned for 470ml- straight cath'd for 450ml clear yellow urine. Pt. resting.
[2024-03-16] MEDS: THIAMINE INJECTION 200 MG IV ×4 (01:17→22:27)
[2024-03-16] MEDS: ZOSYN 50 IV (01:17)
[2024-03-16] MEDS: ZOFRAN 4 MG IV (03:11)
[2024-03-16 03:36] LABS: Hematocrit 34.9 % (37.0-47.0); Mean Corp Hgb Conc. 37.5 g/dL (33.0-37.0); Mean Corpuscular Hgb 31.2 pg (27.0-31.0); Mean Corpuscular Volume 83.1 fL (81.0-99.0); Mean Platelet Volume 9.3 fL (7.4-10.4); Red Cell Dist. Width 17.4 % (11.5-14.5); White Blood Cell Count 3.8 10^3/uL (4.8-10.8)
[2024-03-16 03:37] LABS: Blood Urea Nitrogen 44 mg/dl (7-17); Calcium 7.8 mg/dl (8.4-10.2); Carbon Dioxide 29 mmol/L (22-30); Chloride 93 mmol/L (98-107); Estimated Creatinine Clearance 15 ml/min; Glucose 112 mg/dl (70-99); Hemoglobin 13.1 g/dL (12.0-16.0); Magnesium 1.9 mg/dl (1.6-2.3); Platelet Count 76 10^3/uL (130-400); Potassium 2.9 mmol/L (3.5-5.1); Sodium 135 mmol/L (135-145); eGFR 15.01
[2024-03-16] MEDS: ATIVAN 1 MG IV ×2 (03:40→22:26)
[2024-03-16] MEDS: NSS (PRESERVATIVE FREE) 0.5 ML IV ×2 (03:40→22:27)
[2024-03-16] MEDS: DILAUDID 0.5 MG IV ×3 (03:43→15:37)
--- NOTE | 2024-03-16 04:03 | PTCARENOTE ---
AM labs drawn and resulted. Discussed results with SURG PHYSICIAN ASST and decided to re-draw. Labs drawn and sent again.
MSAS = 6. Per protocol, pt for 1mg PO ativan but pt is NPO. SURG PHYSICIAN ASST ordered 1mg IV ativan. Pt. c/o abdominal pain- PRN dilaudid given. Pt. forgetful, asking same questions multiple times. Rectal trumpet dislodged, full bed bath given and re-inserted
trumpet.
[2024-03-16 04:32] LABS: Hematocrit 24.4 % (37.0-47.0); Mean Corp Hgb Conc. 36.1 g/dL (33.0-37.0); Mean Corpuscular Volume 85.9 fL (81.0-99.0); Platelet Count 64 10^3/uL (130-400); Red Blood Cell Count 2.84 10^6/uL (4.20-5.40); Red Cell Dist. Width 16.8 % (11.5-14.5); White Blood Cell Count 8.4 10^3/uL (4.8-10.8)
[2024-03-16 04:37] LABS: Hemoglobin 8.8 g/dL (12.0-16.0)
[2024-03-16 04:50] LABS: Blood Urea Nitrogen 43 mg/dl (7-17); Calcium 7.8 mg/dl (8.4-10.2); Carbon Dioxide 31 mmol/L (22-30); Chloride 91 mmol/L (98-107); Estimated Creatinine Clearance 14 ml/min; Glucose 109 mg/dl (70-99); Potassium 2.8 mmol/L (3.5-5.1); Sodium 136 mmol/L (135-145); eGFR 13.96
[2024-03-16] MEDS: KCL 100 IV ×2 (05:46→09:48)
--- NOTE | 2024-03-16 06:28 | W.PN.GI.CBS2 ---
Today's Communication / Plan
-
No evidence of GI bleeding seen on EGD despite CT suggesting DU
Still passing burgundy stool
Presentation is suspicious for mesenteric ischemia. Unfortunately Cr continues to rise
If improved, would check CTA. Can do emergently if necessary but she is currently clinically limproved so will hold off
Cont trend labs, supportive care
Protonix changed to BID
Watch EtOH withdrawal
Assessment / Plan
-
Summary: 68yo female presents with n/v, abd pain and burgundy stool. Recently admitted for Tylenol overdose rx with NAC. Hx severe reflux esophagitis had EGD/colon December this year. Hgb 6.9 on admission. Also severely acidotic bicarb <5, lactate
17.5, started on pressors. ARF with Cr 2. CT showed thickening duodenum suggesting duodenitis and possible ulcer.
03/15 EGD-
Food in stomach
No bleeding
No ulcer in duodenum
Impression:
GIB. Acute blood loss anemia
Abdominal pain
Severe acidosis, elevated lactate on admission
CP. Probable demand ischemia due to severe anemia. Card input prior to EGD appreciated
Thickening of duodenum on CT suggesting PUD
ARF
Recent Tylenol overdose
EtOH
Subjective
Subjective
Date of Service: March 16, 2024
Still passing burgundy stool. More alert this am. Reports abd pain and chest pain.
Objective
Data Reviewed
Laboratory Data:
Laboratory Results
03/16/24 04:01
03/16/24 04:01
Laboratory Results
PT 17.5 Sec (11.4-14.6) H 03/15/24 05:35
INR 1.45 03/15/24 05:35
APTT 34.7 Sec (23.4-35.0) 03/15/24 05:35
Phosphorus 8.2 mg/dl (2.5-4.5) H 03/15/24 05:35
Magnesium 1.9 mg/dl (1.6-2.3) 03/16/24 02:48
Total Bilirubin 1.2 mg/dl (0.2-1.3) 03/15/24 18:46
AST 62 U/L (14-36) H 03/15/24 18:46
ALT 32 U/L (0-35) 03/15/24 18:46
Alkaline Phosphatase 70 U/L (38-126) 03/15/24 18:46
Lipase 69 U/L (23-300) 03/14/24 22:40
Vital Signs and I&O:
Vital Signs
Temp Pulse Resp BP Pulse Ox
98.4 F 73 14 121/72 93
03/16/24 03:04 03/16/24 04:30 03/16/24 04:30 03/16/24 04:30 03/16/24 02:30
I&O
03/14/24 03/15/24 03/16/24
06:59 06:59 06:59
Intake Total 2501.3 / 2618.8 3487.5 / 3487.5
Output Total 785 / 785
Balance 2501.3 / 2618.8 2702.5 / 2702.5
Physical Exam
Physical Exam
GI: Soft, Non Distended and Tender
--- NOTE | 2024-03-16 07:09 | W.PN.INTV ---
Today's Communication / Plan
Recommendations
Ongoing bleeding, await GI plan
Repeat H&H/CMP
JULI worsening, following UO next 24 hours
Add breakthrough pain coverage
Maintain NPO, PPI
Assessment
-
Mrs Trudy Longoria is a 68/W adm 03-14 with acute onset abd pain, n/v/d and burgundy color stools. Known h/o chronic alcoholism, alcoholic liver disease, chronic severe reflux esophagitis (multiple EGDs), accidental APAP overdose (adm early February
2023). Known to GI, seen at bedside at ICU with Dr Warner. Adm Hgb 6.9, received 2U PRBCs, to receive 3rd U this AM. On IVFs and low dose NE. Reporting mild CP with no radiatioin, denies NSAIDs/ Denies recent ETOH use but informed her serum ETOH
level is 51 mg/dL. CT abd/p s/c suspicious for duodenal ulcer
Impression:
Acute abdominal pain
Duodenal ulcer suspected on noncontrasted CT 03-15
Acute on chronic severe anemia, adm Hgb 6.9
Acute mild thrombocytopenia
Severe metabolic acidosis, lactic acidosis
JULI, recurrent
Hypocalcemia, hypomagnesemia
Serum ETOH level 51 mg/dL on adm
Conditions MEDICAL ASSEMBLY:
APAP accidental overdose, adm early February 2024
Arrhythmia
Mild chronic gastritis, GEJ inflammation, H pylori negative (UGED 01-20-24). Colonic tubular adenomas (colonoscopy 01-20-24)
GERD
HTN
Anxiety
Chronic diarrhea
Alcohol related gastritis/esophagitis
Chronic dilated common bile duct
Fatty liver
BPPV
Migraine with aura
Orthostatic hypotension
Moderate-sized hiatal hernia
Hypomagnesemia
Cholecystectomy
Former Smoker
Chronic alcoholism
Plan:
Positive ETOH serum level
Monitor for w/d signs, MSAS PRN
Avoid sedation otherwise
Pain control: dilaudid PRN 0.5mg, can add 1 mg breakthrough
Hemodynamically stable, not on pressors
Reports mild CP
Adm EKG without acute findings x mild STach
Adm trop normal, will trend/if negative, can monitor PRN
Likely demand ischemia in setting of severe acute anemia
Prior ECHO in past reviewed and negative
No history of lung disease
Continue O2 protocol, currently on RA
Asp precs as able
IS
CXRs reviewed/negative for acute findings
Possible congestion initially, now resolved
Adm with acute abd pain, burgundy stools, hypotension, metabolic acidosis
Continue protonix gtt
Known to GI, d/w Dr Warner at bedside, CT abd/p s/c suspicious for duodenal ulcer
Urgent UGED without bleed
Increasing creat, CT AP obtained, possible duodenitis
Lactate trending down to <2 now
Consideration for surgical eval
Maintain NPO status
Repeat H&H, CMP
JULI
Likely prerenal, r/o ATN
IVFs
Renal US, U lytes
Monitor UO
If worsening, may need renal eval
PRBCs: transfused 4 units total
LUE ext US with DVT likely from PICC, monitor for now
AC contraindicated with bleed
SCDs
Initially placed on IV abx, now off
Cultures reviewed negative
Observe off for now, monitor WBC/temp curve
No prior history of DM/thyroid disease
Monitor as needed
Diagnostic Data
CXR 03-14-24: portable, no infiltrates
Abd/p CT s/c 03-14:
IMPRESSION:
1. Wall thickening of the first and second portions of the duodenum suggesting duodenitis. Pocket of gas with surrounding hyperemia in the region of the duodenal bulb considered at least suspicious for a peptic ulcer. Limited evaluation in the
absence of oral and intravenous contrast.
2. Small hiatal hernia with wall thickening at the gastroesophageal junction. An endoscopy can be considered for further evaluation of the gastroesophageal and duodenal findings.
3. Severe hepatic steatosis.
4. Bilateral renal cysts.
5. Colonic diverticulosis.
TTE 10-07-23 CONCLUSIONS: Normal left ventricular chamber size with normal left ventricular systolic function. Left ventricular ejection fraction is 60%. Normal regional wall motion. Normal left ventricular wall thickness. Stage I diastolic
dysfunction suggestive of abnormal relaxation. Normal right ventricular size and function. Normal atria. No significant valve abnormalities. The IVC is mildly dilated and does not collapse. Right atrial pressure estimated at 12 mmHg. Mild
pulmonary hypertension. PASP estimated at 41 mmHg.
-----
Critical Care time 55 mins -- The patient is admitted for acute critical illness for the treatment of vital organ failure and/or prevention of further life-threatening conditions. Total care includes time spent in review of history, physical exam,
medications, hemodynamic/ventilator parameters, laboratory data, imaging and discussion with house staff, pharmacy, respiratory therapy, rail crew member, and nursing.
Subjective Dataa
Subjective Data
Date of Service:
Date of Service: March 16, 2024
Chief Complaint: Rn Critical Care Follow Up
Subjective:
hemodynamically stable, no acute events
hb still remains low post transfusions
rectal tube with ongoing burgundy output
c/o diffuse abd pain
Objective Data
Data Reviewed
Vital Signs / I&O / Oxygen:
Vital Signs
Temp Pulse Resp BP Pulse Ox
98.4 F 84 19 150/80 91
03/16/24 03:04 03/16/24 06:30 03/16/24 06:30 03/16/24 06:30 03/16/24 06:00
Intake and Output
03/15/24 03/16/24 03/17/24
06:59 06:59 06:59
Intake Total 2501.3 / 2618.8 3687.5 / 3687.5
Output Total 785 / 785
Balance 2501.3 / 2618.8 2902.5 / 2902.5
SaO2 91
Nasal Cannula flow liters per 2
minute
Physical Exam
General: Comfortable and Other (NAD)
HEENT: Normocephalic, Anicteric and Moist Mucous Membranes
Cardiovascular: S1-S2 and Regular Rhythm
Respiratory: Clear and Non-Labored Respirations
GI: Soft, Non Distended and Non Tender
Neurology: Awake, Alert, Oriented and AO x 3
Skin: Warm, Dry and Good Color
Labs/Micro/Reports
Lab Data
03/16/24 04:01
03/16/24 04:01
--- NOTE | 2024-03-16 08:11 | W.PN.HOSP.TC ---
Addendum entered and electronically signed by Joel Adams DO 03/16/24 15:48:
I updated patient's daughter Azul on the phone. All questions answered.
Original Note:
Today's Communication/Plan
-
Stop bicarb infusion
Continue IV fluids
Kohli catheter
Monitor hemoglobin
Assessment / Plan
Assessment / Plan
Gen-AAOx3, NAD
HEENT-NC, AT, anicteric, clear oral mm
Neck-supple
CV-reg, no M, +S1/S2
Lungs-clear B/L
Abd-soft, nondistended, mild tenderness without guarding diffusely
Ext-left upper extremity edema
Musculoskeletal-no cyanosis, clubbing
Skin-warm and dry
Neuro-grossly non-focal
Psych-calm, cooperative
Hemorrhagic shock -due to acute GI bleed related acute blood loss anemia. Shock resolved. Off vasopressors.
No evidence of sepsis. Discontinue antibiotics.
Acute GI bleed -possibly due to mesenteric ischemia. EGD showed severe reflux esophagitis with no bleeding. Normal duodenum. No specimens collected. Holding off on CTA due to JULI.
Last colonoscopy was 01/20/2024. Preparation of the colon was poor. Multiple polyps were noted. Diverticulosis noted. Internal hemorrhoids.
Acute blood loss anemia -on background chronic anemia. Etiology of acute blood loss anemia due to to acute GI bleed. Has had 4 units of blood transfused so far. Hemoglobin 6.9 on admission, 8.8 this morning.
Acute thrombocytopenia -most likely due to acute blood loss anemia, consumption. Monitor for now.
JULI -due to shock, ATN, anemia. Creatinine continues to rise. Place Kohli catheter. Component of acute urinary retention noted. Discussed with nursing.
Hypokalemia - replete intravenously. Magnesium 1.9.
Left upper extremity edema -likely due to infiltrated IV. Doppler ultrasound to rule out DVT pending.
Acute nonischemic myocardial injury -due to critical illness. Troponin trending down.
Accidental APAP overdose (adm early February 2024)
Severe metabolic acidosis, lactic acidosis -due to shock, JULI, etc. Bicarbonate now elevated. Stop bicarbonate infusion.
Alcohol use disorder
Alcoholic Liver Disease
Serum ETOH level 51 mg/dL on adm
-Continue monitoring MSAS
-Alcohol withdrawal protocol
-Continue thiamine and folic acid
Anxiety
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
Essential HTN
Chronic diarrhea
Alcohol related gastritis/esophagitis
Chronic dilated common bile duct
Fatty liver
BPPV
Migraine with aura
Orthostatic hypotension
Moderate-sized hiatal hernia
Hypomagnesemia
Cholecystectomy
Former Smoker
Full code
Anticipated Discharge: > 48 hours
Subjective/Interval History
-
Date of Service: March 16, 2024
Patient seen and examined. Complaining of abdominal pain.
Objective Data
-
Labs:
Laboratory Results
03/16/24 03/16/24
02:48 04:01
WBC 3.8 L 8.4
Hgb 13.1 D 8.8 L D
Hct 34.9 L 24.4 L
Plt Count 76 L D 64 L
Sodium 135 136
Potassium 2.9 L 2.8 L
Chloride 93 L 91 L
Carbon Dioxide 29 31 H
BUN 44 H 43 H
Creatinine 3.2 H 3.4 H
Glucose 112 H 109 H
Calcium 7.8 L 7.8 L
Vital Signs:
Vital Signs
Temp Pulse Resp BP Pulse Ox
97.7 F 84 19 150/80 91
03/16/24 07:00 03/16/24 06:30 03/16/24 06:30 03/16/24 06:30 03/16/24 06:00
I&O
06/23/24 06/24/24 06/25/24
06:59 06:59 06:59
Intake Total 2501.3 / 2618.8 3687.5 / 3687.5
Output Total 785 / 1235 450 / 450
Balance 2501.3 / 2618.8 2902.5 / 2452.5 -450 / -450
Review of Systems
-
History Source: Patient
All other systems: Reviewed and negative
[2024-03-16] MEDS: COMPAZINE 10 MG IV ×2 (08:33→16:33)
[2024-03-16] MEDS: NSS (PRESERVATIVE FREE) 10 ML IV ×2 (08:41→20:19)
[2024-03-16] MEDS: FOLVITE PO (08:41)
[2024-03-16] MEDS: PROTONIX IV 40 MG IV ×2 (08:41→20:19)
[2024-03-16] MEDS: NSS 1000 IV ×2 (09:00→21:00)
--- NOTE | 2024-03-16 09:21 | W.PN.CD ---
Today's Communication / Plan
-
No chest discomfort to suggest angina over the 20 last 24 hours.
Mild elevation in troponin as noted. Suspect non-MO troponin related to acute illness/hemorrhagic shock/severe anemia.
Will get echo. If echocardiogram shows normal left ventricular function and is otherwise unremarkable then no additional cardiac testing or changes in treatment would be recommended.
If patient remains chest pain-free and echo was unremarkable then we will see as needed
Impression / Plan
-
Acute GI blood loss.. Initially concern regarding hemorrhagic shock. Patient was on pressors and received volume. Now off pressors.
-Hemoglobin as low as 6.4 now up to 8.8 after PRBCs.
-Additional PRBCs as directed by primary team
-EGD on 03/15/2024 without source of bleeding. Mildly severe reflux esophagitis with no bleeding.
-Evaluation and treatment of GI bleed as directed by GI.
-.
Chest discomfort. No complaints of chest discomfort overnight some epigastric discomfort worse with inspiration. Additional treatment as directed by GI and primary team.
.
Abnormal troponin. Peak 0.117.
-Suspect non-MO troponin related to hemorrhagic shock and severe anemia. Could also be type II MO. Will check echo
.
Hypotension. Resolved. On patient's initial presentation there was reported concerns for hemorrhagic shock. Patient required pressors received IV fluids. Currently off pressors.
-Treat GI bleeding
-Monitor pressure.
.
Metabolic acidosis/lactic acidosis. Lactic acidosis. Improved. Bicarb less than 5 on presentation With pH 6.9 on initially ABG.G. Now bicarb up to 11.. Patient also with JULI.
Additional treatment as directed by primary team and compliance counsel.
.
JULI.
-Creatinine still rising to 3.4.
-Optimize hemodynamics and treat GI bleeding
.
Hypokalemia. Management directed by primary team and hospitalist.
.
Physical Exam
Vital Signs/Labs
Vital Signs
Temp Pulse Resp BP Pulse Ox
97.7 F 84 19 150/80 91
03/16/24 07:00 03/16/24 06:30 03/16/24 06:30 03/16/24 06:30 03/16/24 06:00
03/15/24 03/16/24 03/17/24
06:59 06:59 06:59
Actual Weight 63.3 kg 66.8 kg
03/16/24 04:01
03/16/24 04:01
PT 17.5 Sec (11.4-14.6) H 03/15/24 05:35
INR 1.45 03/15/24 05:35
APTT 34.7 Sec (23.4-35.0) 03/15/24 05:35
Magnesium 1.9 mg/dl (1.6-2.3) 03/16/24 02:48
LAB Results
03/14/24 03/14/24 03/15/24
22:40 23:43 10:00
Troponin I Cancelled < 0.012 0.061 H*
03/15/24 03/15/24 03/15/24
15:45 18:46 21:45
Troponin I Cancelled 0.117 H* Cancelled
03/16/24 03/16/24
02:48 07:00
Troponin I 0.080 H* Cancelled
Physical Exam
Constitutional: No acute distress
Cardiovascular: Rhythm & rate is regular
Respiratory: Respiratory effort normal
GI: Soft and Other (Mild epigastric discomfort which is more notable with inspiration)
Neuro/Psych: Alert
Data Reviewed
-
Date of Service: March 16, 2024
Labs: Labs Reviewed by me
[2024-03-16 10:57] LABS: Hematocrit 25.6 % (37.0-47.0); Hemoglobin 9.1 g/dL (12.0-16.0)
--- NOTE | 2024-03-16 11:20 | PTCARENOTE ---
Complete assessment done and noted in chart. Pt seen this morning by Dr Valdez, Dr Adams, and Dr Ludwig. Pt oriented x3, sl hand tremors noted, MSAS=3. Pt sl forgetful. HR SR, BP stable 131/77. L arm swollen,elevated on pillow. Ultrasound done
showing L bacillic vein clot. Dr Ludwig made aware, no change in treatment. R upper arm picc with new IV fluid NSS at 80 ml/hr and +KCl rider (40 meq x2). Pt on R/A, lobes clear,diminished at bases bilat. O2 sat=97-98%. Abd round, +tender all quads.
Pt incon't of liq BM, Pt cleaned and new rectal trumpet applied to protect skin. Liq burgundy/brown stool draining, heme +. Pt voided yellow urine in bed desai, post bladder scan void was 72 ml. Pt turned and call campos at side.
[2024-03-16 11:23] LABS: ALT (SGPT) 34 U/L (0-35); AST (SGOT) 75 U/L (14-36); Albumin 2.7 g/dl (3.5-5.0); Alkaline Phosphatase 72 U/L (38-126); Blood Urea Nitrogen 44 mg/dl (7-17); Calcium 7.9 mg/dl (8.4-10.2); Carbon Dioxide 31 mmol/L (22-30); Chloride 94 mmol/L (98-107); Estimated Creatinine Clearance 14 ml/min; Glucose 103 mg/dl (70-99); Potassium 3.5 mmol/L (3.5-5.1); Sodium 137 mmol/L (135-145); Total Bilirubin 1.2 mg/dl (0.2-1.3); Total Protein 4.4 g/dl (6.3-8.2); eGFR 13.96
--- NOTE | 2024-03-16 11:43 | PTCARENOTE ---
H+H and electrolytes drawn and sent to lab. K+ improved from 2.8 to 3.5, and Hgb presently 9.1, Dr Ludwig updated.
--- NOTE | 2024-03-16 11:46 | CM ---
CM following re: discharge planning.
Reviewed pt's chart, met with pt.
Pt is a 68 year old female, admitted with primary dx of Abdominal pain/N/V/D.
Pt reports she has been living with a friend and her son in a 2SH, 2 steps to enter, has a daughter who lives in [place]. 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 No DME, VN or SNF history. Pt stated she is not sure whether or not she will
be able to walk.
PT and OT will evaluate the pt to determine a level of care at discharge.
CM consulted to assist the pt with substance abuse treatment resources. Pt strongly denied substance abuse problems. Pt stated she has sometimes Blood Ivette drink, declined meeting with [facility] team. Pt stated she also takes some Tylenol and
Ibuprofen for pain. Pt declined an offer to meet with [facility] team, stated again she does not have substance abuse problems.
PCP: Ishaan Ames
Pharmacy: [facility].
D/C plan: most likely home with VN services.
CM will follow with discharge plan updates as needed.
[2024-03-16] MEDS: DILAUDID 1 MG IV ×2 (12:05→20:19)
--- NOTE | 2024-03-16 12:46 | PTCARENOTE ---
Complete CHG bath given. Bladder scan done = 310. 16FR temp sensing platt placed with sterile technique as per Dr Adams. 325ml light yellow urine drained on insertion. Stat lock applied. Linen changed.
--- NOTE | 2024-03-16 16:00 | PTCARENOTE ---
Received pt awake and alert.Speech is appropriate.c/o nausea and slight abdominal discomfort.SR noted.Right PICC intact with IVF.Left arm edematous.+ radial pulse.Decreased breath sounds bibasilar.POX 97%NPO except for ice chips.Rectal trumpet
draining scant black stool.Kohli draining yellow urine.Plan of care discussed.
[2024-03-16] MEDS: SODIUM BICARBONATE IV (16:06)
[2024-03-16] MEDS: FOLVITE 50.2000000000000028 MG IV (18:41)
[2024-03-17] VITALS (20 sets, daily range): BP systolic 104–173; BP diastolic 69–109; PULSE 100; BMI 24.8
[2024-03-17] MEDS: DILAUDID 1 MG IV ×2 (01:06→06:14)
[2024-03-17] MEDS: COMPAZINE 10 MG IV ×2 (01:06→11:10)
[2024-03-17 03:37] LABS: Hematocrit 24.2 % (37.0-47.0); Hemoglobin 8.7 g/dL (12.0-16.0); Mean Corpuscular Hgb 31.1 pg (27.0-31.0); Mean Corpuscular Volume 86.4 fL (81.0-99.0); Mean Platelet Volume 9.4 fL (7.4-10.4); Platelet Count 65 10^3/uL (130-400); Red Cell Dist. Width 17.9 % (11.5-14.5); White Blood Cell Count 7.3 10^3/uL (4.8-10.8)
[2024-03-17 03:59] LABS: ALT (SGPT) 48 U/L (0-35); AST (SGOT) 133 U/L (14-36); Albumin 2.8 g/dl (3.5-5.0); Alkaline Phosphatase 74 U/L (38-126); Blood Urea Nitrogen 39 mg/dl (7-17); Carbon Dioxide 33 mmol/L (22-30); Chloride 100 mmol/L (98-107); Estimated Creatinine Clearance 13 ml/min; Glucose 88 mg/dl (70-99); Magnesium 1.8 mg/dl (1.6-2.3); Potassium 3.3 mmol/L (3.5-5.1); Sodium 140 mmol/L (135-145); Total Bilirubin 0.9 mg/dl (0.2-1.3); Total Protein 4.7 g/dl (6.3-8.2); eGFR 13.48
--- NOTE | 2024-03-17 06:00 | W.PN.GI.CBS2 ---
Today's Communication / Plan
-
Please see assessment and plan for details.
Assessment / Plan
-
1. Acute blood loss anemia/abdominal pain: Initial presentation concerning for intestinal ischemia given severe acidosis, though has been much improved. There is a question about duodenal ulcer on CT scan, though EGD did not show any duodenal
ulcer, did show severe esophagitis which correlates with her chest pain worse with swallowing now. Echo was negative. At this point her abdominal exam is benign. Her acidosis has resolved and hemoglobin remained stable, dark brown stool and fecal
management system now. Will continue PPI, start clear liquids with Carafate suspension continue close monitoring. Will hold on imaging of the vasculature given improved symptoms, acidosis, and persistent JULI
Subjective
Subjective
Date of Service: March 17, 2024
Patient feeling better overall, though still complaining of pain, points to her xiphoid area, worse with swallowing, sometimes radiates to the back. Dark brown stool in fecal management system, has been hemodynamically stable overnight. Echo was
essentially normal, no wall motion abnormalities.
Objective
Data Reviewed
Laboratory Data:
Laboratory Results
03/17/24 03:23
03/17/24 03:23
Laboratory Results
PT 17.5 Sec (11.4-14.6) H 03/15/24 05:35
INR 1.45 03/15/24 05:35
APTT 34.7 Sec (23.4-35.0) 03/15/24 05:35
Phosphorus 8.2 mg/dl (2.5-4.5) H 03/15/24 05:35
Magnesium 1.8 mg/dl (1.6-2.3) 03/17/24 03:23
Total Bilirubin 0.9 mg/dl (0.2-1.3) 03/17/24 03:23
AST 133 U/L (14-36) H 03/17/24 03:23
ALT 48 U/L (0-35) H 03/17/24 03:23
Alkaline Phosphatase 74 U/L (38-126) 03/17/24 03:23
Lipase 69 U/L (23-300) 03/14/24 22:40
Vital Signs and I&O:
Vital Signs
Temp Pulse Resp BP Pulse Ox
98.7 F 106 13 164/92 94
03/17/24 01:09 03/17/24 05:00 03/17/24 05:00 03/17/24 05:00 03/17/24 05:00
I&O
03/15/24 03/16/24 03/17/24
06:59 06:59 06:59
Intake Total 2501.3 / 2618.8 3687.5 / 3687.5 175 / 1750
Output Total 785 / 1235 3707 / 3707
Balance 2501.3 / 2618.8 2902.5 / 2452.5 -1956 /
Physical Exam
Physical Exam
General: NAD
Abdomen: normal bowel sounds, soft, minimal epigastric tenderness, no masses or bruits, no ascites
[2024-03-17] MEDS: MAGNESIUM SULFATE 100 IV (06:14)
[2024-03-17] MEDS: KCL 270 MEQ IV (06:14)
--- NOTE | 2024-03-17 07:18 | W.PN.INTV ---
Today's Communication / Plan
Recommendations
Pain management
Nephroloy consult
Continue IVF
Switch to PO PPI
Assessment
-
Mrs Trudy Longoria is a 68/W adm 03-14 with acute onset abd pain, n/v/d and burgundy color stools. Known h/o chronic alcoholism, alcoholic liver disease, chronic severe reflux esophagitis (multiple EGDs), accidental APAP overdose (adm early February
2023). Known to GI, seen at bedside at ICU with Dr Warner. Adm Hgb 6.9, received 2U PRBCs, to receive 3rd U this AM. On IVFs and low dose NE. Reporting mild CP with no radiatioin, denies NSAIDs/ Denies recent ETOH use but informed her serum ETOH
level is 51 mg/dL. CT abd/p s/c suspicious for duodenal ulcer
Impression:
Acute abdominal pain
Duodenal ulcer suspected on noncontrasted CT 03-15
Acute on chronic severe anemia, adm Hgb 6.9
Acute mild thrombocytopenia
Severe metabolic acidosis, lactic acidosis
JULI, recurrent
Hypocalcemia, hypomagnesemia
Serum ETOH level 51 mg/dL on adm
Conditions RIDING DOUBLE:
APAP accidental overdose, adm early February 2024
Arrhythmia
Mild chronic gastritis, GEJ inflammation, H pylori negative (UGED 01-20-24). Colonic tubular adenomas (colonoscopy 01-20-24)
GERD
HTN
Anxiety
Chronic diarrhea
Alcohol related gastritis/esophagitis
Chronic dilated common bile duct
Fatty liver
BPPV
Migraine with aura
Orthostatic hypotension
Moderate-sized hiatal hernia
Hypomagnesemia
Cholecystectomy
Former Smoker
Chronic alcoholism
Plan:
Positive ETOH serum level
Monitor for w/d signs, MSAS PRN
Avoid sedation otherwise
Pain control: dilaudid PRN 0.5mg for severe pain, oxycodone for mod pain, tylenol for mild pain
Hemodynamically stable, not on pressors
Adm EKG without acute findings x mild STach
Adm trop normal, can monitor PRN
Likely demand ischemia in setting of severe acute anemia
Prior ECHO in past reviewed and negative
Recent echo done on 03/16 is negative
Mild CP-?severe esophagitis
No history of lung disease
Continue O2 protocol, currently on RA
Asp precs as able
IS
CXRs reviewed/negative for acute findings
Possible congestion initially, now resolved
Adm with acute abd pain, burgundy stools, hypotension, metabolic acidosis
Known to GI, d/w Dr Warner at bedside, CT abd/p s/c suspicious for duodenal ulcer
Urgent UGED without bleed
Increasing creat (today increased to 3.5 from 3.4), CT AP obtained, possible duodenitis
Monitor H&H and CMP
Hemoglobin stable at 8.7
Advanced to clear liquid diet
Stools from rectal trumpet are minimal dark greenish
Switched from IV protonix BID to oral
JULI
Likely prerenal, r/o ATN
Continue IVFs
Urine output decreased
Creatining increasd from 3.4 to 3.5
Potassium today 3.3, repleted
Nephrology consulted
PRBCs: transfused 4 units total
LUE ext US with DVT likely from PICC, monitor for now
AC contraindicated with bleed
SCDs
Initially placed on IV abx, now off
Cultures reviewed negative
Observe off for now, monitor WBC/temp curve
No prior history of DM/thyroid disease
Monitor as needed
Diagnostic Data
CXR 03-14-24: portable, no infiltrates
Abd/p CT s/c 03-14:
IMPRESSION:
1. Wall thickening of the first and second portions of the duodenum suggesting duodenitis. Pocket of gas with surrounding hyperemia in the region of the duodenal bulb considered at least suspicious for a peptic ulcer. Limited evaluation in the
absence of oral and intravenous contrast.
2. Small hiatal hernia with wall thickening at the gastroesophageal junction. An endoscopy can be considered for further evaluation of the gastroesophageal and duodenal findings.
3. Severe hepatic steatosis.
4. Bilateral renal cysts.
5. Colonic diverticulosis.
TTE 10-07-23 CONCLUSIONS: Normal left ventricular chamber size with normal left ventricular systolic function. Left ventricular ejection fraction is 60%. Normal regional wall motion. Normal left ventricular wall thickness. Stage I diastolic
dysfunction suggestive of abnormal relaxation. Normal right ventricular size and function. Normal atria. No significant valve abnormalities. The IVC is mildly dilated and does not collapse. Right atrial pressure estimated at 12 mmHg. Mild
pulmonary hypertension. PASP estimated at 41 mmHg.
Subjective Dataa
Subjective Data
Date of Service:
Date of Service: March 17, 2024
Chief Complaint: Oral Hygienist Follow Up
Subjective:
Patient seen at bedside today. Complains of minimal abdominal pain but has chest discomfort that worsens when swallowing. Continues to feel mildly nauseous.
Review of Systems
General: Fever (n negative)
Cardiopulmonary: Cough (Negative)
GI: Nausea
Genitourinary: Kohli
Objective Data
Data Reviewed
Vital Signs / I&O / Oxygen:
Vital Signs
Temp Pulse Resp BP Pulse Ox
98.8 F 103 15 156/94 90
03/17/24 04:30 03/17/24 06:00 03/17/24 06:00 03/17/24 06:00 03/17/24 06:00
Intake and Output
03/16/24 03/17/24 03/18/24
06:59 06:59 06:59
Intake Total 3687.5 / 3687.5 2157 / 2157
Output Total 785 / 1235 4106 / 4106
Balance 2902.5 / 2452.5 -1948 /
SaO2 90
Nasal Cannula flow liters per 2
minute
Physical Exam
General: Comfortable and Other (NAD)
HEENT: Normocephalic, Anicteric and Moist Mucous Membranes
Cardiovascular: S1-S2 and Regular Rhythm
Respiratory: Clear and Non-Labored Respirations
GI: Soft, Non Distended, Tender (Minimally tender) and Other (rectal trumpet)
Neurology: Awake, Alert, Oriented and AO x 3
Skin: Warm and Dry
Labs/Micro/Reports
Lab Data
03/17/24 03:23
03/17/24 03:23
[2024-03-17] MEDS: PROTONIX IV 40 MG IV (07:30)
[2024-03-17] MEDS: NSS (PRESERVATIVE FREE) 10 ML IV (07:30)
[2024-03-17] MEDS: FOLVITE 1 MG PO (07:31)
[2024-03-17] MEDS: CARAFATE SUSPENSION 1 GM PO ×4 (07:31→21:16)
[2024-03-17] MEDS: THIAMINE INJECTION 200 MG IV ×2 (07:31→16:07)
--- NOTE | 2024-03-17 07:36 | W.PN.HOSP.TC ---
Today's Communication/Plan
-
Nephro consult
Clears
Increase IVF rate
Monitor Hgb
Assessment / Plan
Assessment / Plan
Gen-AAOx3, NAD
HEENT-NC, AT, anicteric, clear oral mm
Neck-supple
CV-reg, no M, +S1/S2
Lungs-clear B/L
Abd-soft, nondistended, mild tenderness without guarding diffusely
Ext-left upper extremity edema
Musculoskeletal-no cyanosis, clubbing
Skin-warm and dry
Neuro-grossly non-focal
Psych-calm, cooperative
Hemorrhagic shock -due to acute GI bleed related acute blood loss anemia. Shock resolved. Off vasopressors.
No evidence of sepsis. Discontinued antibiotics.
Acute GI bleed -possibly due to mesenteric ischemia. EGD showed severe reflux esophagitis with no bleeding. Normal duodenum. No specimens collected. Sucralfate started by GI service. Continue IV Protonix twice daily.
Holding off on CTA due to JULI.
Last colonoscopy was 01/20/2024. Preparation of the colon was poor. Multiple polyps were noted. Diverticulosis noted. Internal hemorrhoids.
Fecal management system in place, dark liquid stool noted.
Acute blood loss anemia -on background chronic anemia. Etiology of acute blood loss anemia due to to acute GI bleed. Has had 4 units of blood transfused so far. Hemoglobin 6.9 on admission, 8.7 this morning.
Acute thrombocytopenia -most likely due to acute blood loss anemia, consumption. Monitor for now.
JULI -due to shock, ATN, anemia. Creatinine continues to rise. Kohli catheter placed. Component of acute urinary retention noted. Discussed with nursing. Consult Nephro.
Hypokalemia - replete intravenously. Magnesium 1.8.
Left basilic vein thrombus - probably acute, although noted on prior US from May 2023 as well.
Acute nonischemic myocardial injury -due to critical illness. Troponin trending down.
Accidental APAP overdose (adm early February 2024)
Severe metabolic acidosis, lactic acidosis -resolved. Now with met alkalosis, concern for contraction alkalosis given negative I/O, large urine output (almost 3L). Increase IVF rate.
Alcohol use disorder
Alcoholic Liver Disease
Serum ETOH level 51 mg/dL on adm
-Continue monitoring MSAS
-Alcohol withdrawal protocol
-Continue thiamine and folic acid
Anxiety
- continue [employer] Lorazepam
Essential HTN
Chronic diarrhea
Alcohol related gastritis/esophagitis
Chronic dilated common bile duct
Fatty liver
BPPV
Migraine with aura
Orthostatic hypotension
Moderate-sized hiatal hernia
Hypomagnesemia
Cholecystectomy
Former Smoker
Full code
Anticipated Discharge: > 48 hours
Subjective/Interval History
-
Date of Service: March 17, 2024
Patient seen and examined. Complaining of pleuritic chest pain.
Objective Data
-
Labs:
Laboratory Results
03/17/24
03:23
WBC 7.3
Hgb 8.7 L
Hct 24.2 L
Plt Count 65 L
Sodium 140
Potassium 3.3 L
Chloride 100
Carbon Dioxide 33 H
BUN 39 H
Creatinine 3.5 H
Glucose 88
Calcium 8.0 L
Total Bilirubin 0.9
AST 133 H
ALT 48 H
Alkaline Phosphatase 74
Vital Signs:
Vital Signs
Temp Pulse Resp BP Pulse Ox
98.0 F 103 15 156/94 90
03/17/24 07:30 03/17/24 06:00 03/17/24 06:00 03/17/24 06:00 03/17/24 06:00
I&O
03/16/24 03/17/24 03/18/24
06:59 06:59 06:59
Intake Total 3687.5 / 3687.5 2157 / 215
Output Total 785 / 1235 4106 / 4106
Balance 2902.5 / 2452.5 -1948 /
Review of Systems
-
History Source: Patient
All other systems: Reviewed and negative
[2024-03-17] MEDS: NSS 1000 IV ×3 (09:07→22:28)
--- NOTE | 2024-03-17 09:20 | W.CON.NEPH ---
Consultation
-
Date/Time Consultation Requested: March 17, 2024 7 AM
Date/Time Consultation Performed: March 17, 2024 9:20 AM
Requesting Provider: Dr. Adams
Performing Provider: Dr. Cha
Reason for Consultation: Acute kidney injury
Medical History
-
Chief Complaint: Abdominal pain and dark stools
History of Present Illness:
This is a 68-year-old female with reflux on proton pump inhibitor therapy, anxiety on Ativan, but otherwise with limited medical history. She came to the emergency room with vomiting abdominal pain and burgundy stool. She was noted to be
significantly anemic. She was also hypotensive and required pressor therapy. There is significant lactic acidosis at 17.5. She also has significant metabolic acidosis as well. Her creatinine was noted to be elevated for JULI at 2.0 up from her
baseline of 0.8. She was given fluids as well as transfusion. Unfortunately, her pain continued to rise now at 3.9 for which we are asked to assist with management of. There was concern of mesenteric ischemia given persistent dark stools as well
as abdominal pain. Yesterday she was also noted to have persistent elevated postvoid residuals and a Kohli catheter was placed. She has also required significant potassium replacement for hypokalemia. She is currently critically ill in ICU.
Past Medical History
GERD
Anxiety depression
Alcohol use disorder
Accidental Tylenol overdose
Migraines
Hiatal hernia cholecystectomy
Gastritis
Social History
Tobacco: Former Smoker
Alcohol: Chronic Alcoholic
Family History
Family History: Not Pertinent
Allergies / Home Medications
Allergy/AdvReac Type Severity Reaction Status Date / Time
aspirin Allergy Unknown Verified 03/14/24 21:48
gabapentin Allergy Unknown Verified 03/14/24 21:48
NSAIDS (Non-Steroidal Allergy Unknown Verified 03/14/24 21:48
Anti-Inflamma
Phdukib-CWL-[id number] Reductase Allergy Swelling Verified 03/14/24 21:48
Inhibitor
Sulfa (Sulfonamide Allergy Unknown Verified 03/14/24 21:48
Antibiotics)
�Medication �Instructions �Recorded �Confirmed �Type
lorazepam 0.5 mg tablet 0.5 mg PO HS PRN anxiety 03/08/24 03/08/24 History
pantoprazole 40 mg tablet,delayed 40 mg PO DAILY 03/08/24 03/08/24 History
release
sucralfate 100 mg/mL oral 0 ml PO .SEE BELOW 03/08/24 03/08/24 History
suspension
Review of Systems
-
Right-sided abdominal discomfort
Diarrhea
Urinary retention
All other systems: Negative unless noted
Physical Exam
Vital Signs
Vital Signs
Temp Pulse Resp BP Pulse Ox
98.0 F 103 15 156/94 96
03/17/24 07:30 03/17/24 06:00 03/17/24 06:00 03/17/24 06:00 03/17/24 08:00
Lab Results
WBC 7.3 10^3/uL (4.8-10.8) 03/17/24 03:23
RBC 2.80 10^6/uL (4.20-5.40) L 03/17/24 03:23
Hgb 8.7 g/dL (12.0-16.0) L 03/17/24 03:23
Hct 24.2 % (37.0-47.0) L 03/17/24 03:23
Plt Count 65 10^3/uL (130-400) L 03/17/24 03:23
Sodium 140 mmol/L (135-145) 03/17/24 03:23
Potassium 3.3 mmol/L (3.5-5.1) L 03/17/24 03:23
Chloride 100 mmol/L (98-107) 03/17/24 03:23
Carbon Dioxide 33 mmol/L (22-30) H 03/17/24 03:23
BUN 39 mg/dl (7-17) H 03/17/24 03:23
Creatinine 3.5 mg/dL (0.6-1.0) H 03/17/24 03:23
eGFR 13.48 03/17/24 03:23
Glucose 88 mg/dl (70-99) 03/17/24 03:23
Calcium 8.0 mg/dl (8.4-10.2) L 03/17/24 03:23
Phosphorus 8.2 mg/dl (2.5-4.5) H 03/15/24 05:35
Albumin 2.8 g/dl (3.5-5.0) L 03/17/24 03:23
Physical Exam
Patient is awake alert oriented and in no distress. Mood and affect were pleasant, insight and judgment were good. Pupils are equal round and reactive to light, extraocular movements are intact, sclera were anicteric. Hearing was normal, ears and
nose are intact. Oropharynx was clear. Neck was supple with trachea midline and no thyromegaly. Heart was regular rate and rhythm without rubs. Lower extremities without edema. Lungs were clear to auscultation bilaterally and with normal
excursion. Abdomen was soft, tender on the right side, with normal active bowel sounds, and no hepatosplenomegaly. Skin was without rash and with normal turgor.
Data Reviewed
-
Radiology: Image Personally Visualized and interpreted (Chest x-ray on 03/15/2024 by my reading shows no acute disease)
CT Scan: Report Reviewed by me (CT of the abdomen and pelvis without contrast on 03/15/2024 shows fatty liver, bilateral renal cysts, hyperdense cyst right lower pole 1.1 cm, circumferential wall thickening of the duodenum, diverticulosis)
Medical Tests (Nuc Med, Echo etc): Report Reviewed by me (Echocardiogram on 03/16/2024 shows normal biventricular size and systolic function)
Labs: Labs Reviewed by me (WBC 7.3, hemoglobin 8.7, platelets 65, sodium 140, potassium 3.3, bicarbonate 33, BUN 39 creatinine 3.5, calcium 8.0, AST 133, ALT 48)
Assessment/Plan
-
Assessment
Hemorrhagic shock
Mesenteric ischemia
Acute kidney injury
Metabolic alkalosis
Hypokalemia
Left basilic vein nonocclusive thrombus
Chronic alcohol use
Thrombocytopenia
Acute blood loss anemia
Urinary retention with Kohli
Plan
Continue IV fluids
Replace potassium
Check urine studies
maintain Kohli
Follow BMP
It would appear that her acute kidney injury was likely potentiated by initial shock and then persisted with retention
I discussed the potential of dialysis with her and she would not refuse if needed.
critical time 31 minutes
--- NOTE | 2024-03-17 09:20 | PTCARENOTE ---
Received pt awake and alert.Speech is appropriate.+ALVAREZ.c/o abdominal pain 2-06/02.ST noted.IVF infusing via right DL PICC.Decreased breath sounds bibasilar.POX 96% on RA.Appetite excellent for clear liquids.+ flatus.Rectal trumpet draining smal
amount black stool.Kohli raining yellow urine.Left arm edematous with serous drainage from puncture site.Plan of care discussed.
--- NOTE | 2024-03-17 11:37 | PTCARENOTE ---
Pt assessed.No change in assessment noted.Am care completed.Pt assisted oob to chair with 2 person minimal assistance.Rectal trumpet removed. Urine labs sent as ordered.
[2024-03-17 12:31] LABS: Urine Sodium 66 mmol/L (30-90)
[2024-03-17 12:55] LABS: Urine Albumin Trace (Neg - Trace); Urine Bilirubin Negative (Negative); Urine Character Clear (Clear); Urine Color Yellow; Urine Glucose Negative (Negative); Urine Ketone Trace (Negative); Urine Leukocyte 1+ (Negative); Urine Nitrite Negative (Negative); Urine Occult Blood 3+ (Negative); Urine Specific Gravity 1.005 (<1.030); Urine Urobilinogen Negative (Neg - 1+)
[2024-03-17 13:40] LABS: Urine Amorphous Seen
[2024-03-17] MEDS: ROXICODONE 5 MG PO (16:06)
--- NOTE | 2024-03-17 16:23 | PTCARENOTE ---
Pt assessed.No change in assessment noted.Pt c/o stomach pain 05/02.Requested and received Oxycodone foe pain.Report given to Shelia Erickson RN.
--- NOTE | 2024-03-17 17:00 | PTCARENOTE ---
Received report from Vicki in ICU. Pt arrived to rm 402-1 at this time. Pt came to room in wheelchair, to bed with 2 assist. Pt AAOx3, rating pain of abdomen into back 6/10, had PRN Roxicodone at 1606, pain tolerable to pt at this time. Pt scored (2)
on MSAS on arrival to rm 402-1. See shift assessment for further detail. Oriented pt to , call campos, pressure ulcer prevention, fall prevention, medications- pt verbalized understanding. Call campos within reach.
[2024-03-17] MEDS: TYLENOL 650 MG PO (21:23)
[2024-03-17] MEDS: ATIVAN 1 MG PO (22:28)
[2024-03-18] VITALS (9 sets, daily range): BP systolic 142–192; BP diastolic 75–115; PULSE 99; BMI 24.9
[2024-03-18 06:12] LABS: % Basophils 0.4 % (0-2); % Eosinophils 3.9 % (0-6); % Immature Granulocytes 0.7 % (0-0.5); % Lymphocytes 21.9 % (20.5-51.1); % Monocytes 11.9 % (1.7-9.3); % Neutrophils 61.2 % (42.2-75.2); Absolute Eosinophils 0.2 10^3/uL (0-0.7); Absolute Monocytes 0.6 10^3/uL (0.1-0.6); Absolute Neutrophils 2.8 10^3/uL (1.4-6.5); Hematocrit 24.3 % (37.0-47.0); Hemoglobin 8.4 g/dL (12.0-16.0); Mean Corp Hgb Conc. 34.6 g/dL (33.0-37.0); Mean Corpuscular Hgb 30.7 pg (27.0-31.0); Mean Corpuscular Volume 88.7 fL (81.0-99.0); Nucleated Red Blood Cells % 0 %; Platelet Count 49 10^3/uL (130-400); Red Blood Cell Count 2.74 10^6/uL (4.20-5.40); Red Cell Dist. Width 17.2 % (11.5-14.5); White Blood Cell Count 4.6 10^3/uL (4.8-10.8)
[2024-03-18 06:40] LABS: ALT (SGPT) 44 U/L (0-35); AST (SGOT) 86 U/L (14-36); Albumin 2.5 g/dl (3.5-5.0); Alkaline Phosphatase 70 U/L (38-126); Blood Urea Nitrogen 25 mg/dl (7-17); Calcium 7.9 mg/dl (8.4-10.2); Carbon Dioxide 32 mmol/L (22-30); Chloride 105 mmol/L (98-107); Estimated Creatinine Clearance 17 ml/min; Glucose 99 mg/dl (70-99); Magnesium 1.5 mg/dl (1.6-2.3); Potassium 2.7 mmol/L (3.5-5.1); Sodium 141 mmol/L (135-145); Total Bilirubin 0.7 mg/dl (0.2-1.3); Total Protein 4.5 g/dl (6.3-8.2)
--- NOTE | 2024-03-18 06:49 | W.PN.UPDATE ---
Update Note
Progress Note Update
K 2.7, Patient asymptomatic, will order KCL 40 mEq IV rider once. repeat BMP mag.
--- NOTE | 2024-03-18 07:12 | W.PN.GI.CBS2 ---
Addendum entered and electronically signed by Slim Bearden MD 03/18/24 07:47:
Also with new significant pancytopenia in the setting of JULI, unclear etiology, bilirubin normal suggesting no hemolysis, no signs of bleeding. Will defer to internal medicine.
Original Note:
Today's Communication / Plan
-
Please see assessment and plan for details.
Assessment / Plan
-
1. Acute blood loss anemia/abdominal pain: Initial presentation concerning for intestinal ischemia given severe acidosis, though has been much improved. There is a question about duodenal ulcer on CT scan, though EGD did not show any duodenal
ulcer, did show severe esophagitis which correlates with her chest pain worse with swallowing now. Her LFTs were mildly elevated, likely more from shock/low flow with documented previous hypotension, now improving. CT scan did not show any biliary
pathology. At this point will advance to full liquid diet, continue PPI and Carafate and observation.
Subjective
Subjective
Date of Service: March 18, 2024
Patient feeling okay overall, tolerated clears without difficulty, still some mild discomfort though overall improved. No vomiting. Had some loose stools, though no melena or hematochezia.
Objective
Data Reviewed
Laboratory Data:
Laboratory Results
03/18/24 05:51
Laboratory Results
PT 17.5 Sec (11.4-14.6) H 03/15/24 05:35
INR 1.45 03/15/24 05:35
APTT 34.7 Sec (23.4-35.0) 03/15/24 05:35
Phosphorus 3.0 mg/dl (2.5-4.5) 03/17/24 03:23
Magnesium 1.5 mg/dl (1.6-2.3) L 03/18/24 05:51
Total Bilirubin 0.7 mg/dl (0.2-1.3) 03/18/24 05:51
AST 86 U/L (14-36) H 03/18/24 05:51
ALT 44 U/L (0-35) H 03/18/24 05:51
Alkaline Phosphatase 70 U/L (38-126) 03/18/24 05:51
Lipase 69 U/L (23-300) 03/14/24 22:40
Vital Signs and I&O:
Vital Signs
Temp Pulse Resp BP Pulse Ox
98.4 F 83 18 165/84 96
03/18/24 03:31 03/18/24 03:31 03/18/24 03:31 03/18/24 03:31 03/18/24 03:31
I&O
03/17/24 03/18/24 03/19/24
06:59 06:59 06:59
Intake Total 2157 / 2237 3255 / 3255
Output Total 4106 / 4136 4425 / 4425
Balance -1949 / -1899 -1170 / -1170
Physical Exam
Physical Exam
General: NAD
Abdomen: normal bowel sounds, soft, mild epigastric/right upper quadrant tenderness, no masses or bruits, no ascites
[2024-03-18] MEDS: KCL 270 MEQ IV (07:35)
[2024-03-18] MEDS: CARAFATE SUSPENSION 1 GM PO ×4 (07:37→20:57)
--- NOTE | 2024-03-18 10:31 | W.PN.HOSP.TC ---
Today's Communication/Plan
-
Monitor hemoglobin
Replete electrolytes
Continue IV fluids
Assessment / Plan
Assessment / Plan
Gen-AAOx3, NAD
HEENT-NC, AT, anicteric, clear oral mm
Neck-supple
CV-reg, no M, +S1/S2
Lungs-clear B/L
Abd-soft, nondistended, improving tenderness
Ext-left upper extremity edema
Musculoskeletal-no cyanosis, clubbing
Skin-warm and dry
Neuro-grossly non-focal
Psych-calm, cooperative
Hemorrhagic shock -due to acute GI bleed related acute blood loss anemia. Shock resolved. Off vasopressors.
No evidence of sepsis. Discontinued antibiotics.
Acute GI bleed -possibly due to mesenteric ischemia. EGD showed severe reflux esophagitis with no bleeding. Normal duodenum. No specimens collected. Sucralfate started by GI service. Continue IV Protonix twice daily.
Holding off on CTA due to JULI.
Last colonoscopy was 01/20/2024. Preparation of the colon was poor. Multiple polyps were noted. Diverticulosis noted. Internal hemorrhoids.
Fecal management system in place, dark liquid stool noted.
Diet advanced to full liquids by GI.
Acute blood loss anemia -on background chronic anemia. Etiology of acute blood loss anemia due to to acute GI bleed. Has had 4 units of blood transfused so far. Hemoglobin 6.9 on admission, 8.4 this morning.
Acute thrombocytopenia -most likely due to acute blood loss anemia, consumption. Monitor for now.
Pancytopenia -explanation for leukopenia unclear. Monitor for now.
JULI -due to shock, ATN, anemia. Kohli catheter in place. Large urine output noted. Nephrology input noted. Creatinine trending down. Continue IV fluids, I's and O's are -3.4 L.
Hypokalemia - replete intravenously.
Hypomagnesemia -replete intravenously.
Left basilic vein thrombus - probably acute, although noted on prior US from May 2023 as well.
Acute nonischemic myocardial injury -due to critical illness. Troponin trending down.
Accidental APAP overdose (adm early February 2024)
Severe metabolic acidosis, lactic acidosis -resolved. Now with met alkalosis, concern for contraction alkalosis given negative I/O, large urine output (almost 3L). Increase IVF rate.
Alcohol use disorder
Alcoholic Liver Disease
Serum ETOH level 51 mg/dL on adm
-Continue monitoring MSAS
-Alcohol withdrawal protocol
-Continue thiamine and folic acid
Anxiety
- continue [employer] Lorazepam
Essential HTN -does not appear to be on home meds. Will start low-dose amlodipine. Blood pressure elevated.
Chronic diarrhea
Alcohol related gastritis/esophagitis
Chronic dilated common bile duct
Fatty liver
BPPV
Migraine with aura
Orthostatic hypotension
Moderate-sized hiatal hernia
Hypomagnesemia
Cholecystectomy
Former Smoker
Full code
Dispo -SNF needed on discharge when medically stable. Patient wants to think about it.
Anticipated Discharge: > 48 hours
Subjective/Interval History
-
Date of Service: March 18, 2024
Patient seen and examined. Feeling better overall. No complaints.
Objective Data
-
Labs:
Laboratory Results
03/18/24 03/18/24
05:51 12:00
WBC 4.6 L
Hgb 8.4 L
Hct 24.3 L
Plt Count 49 L D
Sodium 141 Pending
Potassium 2.7 L* Pending
Chloride 105 Pending
Carbon Dioxide 32 H Pending
BUN 25 H Pending
Creatinine 2.7 H Pending
Glucose 99 Pending
Calcium 7.9 L Pending
Total Bilirubin 0.7
AST 86 H
ALT 44 H
Alkaline Phosphatase 70
Vital Signs:
Vital Signs
Temp Pulse Resp BP Pulse Ox
98.9 F 76 16 190/99 93
03/18/24 07:10 03/18/24 07:10 03/18/24 07:10 03/18/24 07:10 03/18/24 07:10
I&O
03/17/24 03/18/24 03/19/24
06:59 06:59 06:59
Intake Total 2157 / 2237 3255 / 3255
Output Total 4106 / 4136 4425 / 4425 1500 / 1500
Balance -1949 / -1899 -1170 / -1170 -1500 / -1500
Review of Systems
-
History Source: Patient
All other systems: Reviewed and negative
[2024-03-18] MEDS: ROXICODONE 5 MG PO ×3 (10:50→20:57)
[2024-03-18] MEDS: PROTONIX 40 MG PO (10:52)
[2024-03-18] MEDS: VITAMIN B1 100 MG PO ×2 (10:52→20:56)
[2024-03-18] MEDS: FOLVITE 1 MG PO (10:52)
[2024-03-18] MEDS: MAGNESIUM SULFATE 50 IV (10:53)
[2024-03-18] MEDS: NORVASC 5 MG PO (10:54)
--- NOTE | 2024-03-18 11:35 | W.PN.NEPH.PH ---
Today's Communication / Plan
-
- continue IVF
Assessment/Plan
-
Assessment
Hemorrhagic shock
Mesenteric ischemia
Acute kidney injury
Metabolic alkalosis
Hypokalemia
Left basilic vein nonocclusive thrombus
Chronic alcohol use
Thrombocytopenia
Acute blood loss anemia
Urinary retention with Kohli
Plan
Continue IV fluids
Replace electrolytes PRN
Urine studies consistent with ATN.
maintain Kohli (blood noted on UA)
Follow BMP
It would appear that her acute kidney injury was likely potentiated by initial shock and then persisted with retention
Per Dr. Cha: discussed the potential of dialysis with her and she would not refuse if needed.
-
-
Date of Service: March 18, 2024
CC / HPI / ROS
-
Chief Complaint:
JULI
History of Present Illness:
Cr peak 3.9, down to 2.7 today with IVF
lactic acidosis improved
Review of Systems:
feeling well now
Labs
-
Labs:
WBC 4.6 10^3/uL (4.8-10.8) L 03/18/24 05:51
RBC 2.74 10^6/uL (4.20-5.40) L 03/18/24 05:51
Hgb 8.4 g/dL (12.0-16.0) L 03/18/24 05:51
Hct 24.3 % (37.0-47.0) L 03/18/24 05:51
Plt Count 49 10^3/uL (130-400) L D 03/18/24 05:51
eGFR 18.40 03/18/24 05:51
Phosphorus 3.0 mg/dl (2.5-4.5) 03/17/24 03:23
Albumin 2.5 g/dl (3.5-5.0) L 03/18/24 05:51
Physical Exam
-
Vital Signs:
Vital Signs
Temp Pulse Resp BP Pulse Ox
98.3 F 85 18 192/115 96
03/18/24 10:55 03/18/24 10:55 03/18/24 10:55 03/18/24 10:55 03/18/24 10:55
Cardiovascular:: Regular rate and rhythm
Respiratory:: Bilateral: Coarse
Lung Excursion:: Normal
Abdomen:: Nontender and Soft
Bowel Sounds:: Normal
Extremity Edema:: None: Bilateral:
Kohli Catheter: Yes
[2024-03-18 12:53] LABS: Blood Urea Nitrogen 23 mg/dl (7-17); Calcium 8.1 mg/dl (8.4-10.2); Carbon Dioxide 33 mmol/L (22-30); Chloride 104 mmol/L (98-107); Estimated Creatinine Clearance 18 ml/min; Glucose 113 mg/dl (70-99); Magnesium 1.7 mg/dl (1.6-2.3); Potassium 3.4 mmol/L (3.5-5.1); Sodium 140 mmol/L (135-145); eGFR 19.26
[2024-03-18] MEDS: 0.45%NACL 1000 IV ×2 (13:21→23:36)
[2024-03-18] MEDS: KCL 20 MEQ PO (20:56)
[2024-03-18] MEDS: COMPAZINE 10 MG IV (20:57)
[2024-03-18] MEDS: ATIVAN 1 MG PO (20:57)
[2024-03-19 03:45] VITALS: BP 164/79
[2024-03-19 04:36] LABS: % Basophils 0.4 % (0-2); % Eosinophils 5.5 % (0-6); % Immature Granulocytes 0.8 % (0-0.5); % Lymphocytes 22.4 % (20.5-51.1); % Monocytes 15.9 % (1.7-9.3); Absolute Eosinophils 0.3 10^3/uL (0-0.7); Absolute Lymphocytes 1.1 10^3/uL (1.2-3.4); Absolute Monocytes 0.8 10^3/uL (0.1-0.6); Absolute Neutrophils 2.7 10^3/uL (1.4-6.5); Hematocrit 26.8 % (37.0-47.0); Hemoglobin 8.9 g/dL (12.0-16.0); Mean Corp Hgb Conc. 33.2 g/dL (33.0-37.0); Mean Corpuscular Hgb 30.5 pg (27.0-31.0); Mean Corpuscular Volume 91.8 fL (81.0-99.0); Mean Platelet Volume 9.6 fL (7.4-10.4); Nucleated Red Blood Cells % 0 %; Platelet Count 52 10^3/uL (130-400); Red Blood Cell Count 2.92 10^6/uL (4.20-5.40); White Blood Cell Count 4.9 10^3/uL (4.8-10.8)
[2024-03-19 05:01] LABS: ALT (SGPT) 41 U/L (0-35); AST (SGOT) 73 U/L (14-36); Albumin 2.7 g/dl (3.5-5.0); Alkaline Phosphatase 75 U/L (38-126); Blood Urea Nitrogen 20 mg/dl (7-17); Calcium 8.3 mg/dl (8.4-10.2); Carbon Dioxide 30 mmol/L (22-30); Chloride 104 mmol/L (98-107); Estimated Creatinine Clearance 22 ml/min; Glucose 98 mg/dl (70-99); Magnesium 1.7 mg/dl (1.6-2.3); Sodium 139 mmol/L (135-145); Total Bilirubin 0.6 mg/dl (0.2-1.3); Total Protein 4.7 g/dl (6.3-8.2); eGFR 24.88
[2024-03-19 05:37] VITALS: BMI 25.2
[2024-03-19] MEDS: KCL 40 MEQ PO (05:48)
[2024-03-19] MEDS: ROXICODONE 5 MG PO (06:01)
[2024-03-19] MEDS: CARAFATE SUSPENSION 1 GM PO ×2 (06:31→12:25)
--- NOTE | 2024-03-19 06:34 | W.PN.UPDATE ---
Update Note
Progress Note Update
K 3.0, repleted with Kcl 40 meq PO once.
--- NOTE | 2024-03-19 06:43 | W.PN.GI.CBS2 ---
Today's Communication / Plan
-
Please see assessment and plan for details.
Assessment / Plan
-
1. Acute blood loss anemia/abdominal pain: Initial presentation concerning for intestinal ischemia given severe acidosis, though has been much improved. There is a question about duodenal ulcer on CT scan, though EGD did not show any duodenal
ulcer, did show severe esophagitis which correlates with her chest pain worse with swallowing, now all much improved. Her LFTs were mildly elevated, likely more from shock/low flow with documented previous hypotension, still improving. CT scan did
not show any biliary pathology. At this point will advance to regular, continue PPI and Carafate and observation.
2. Pancytopenia: All counts are improving, will defer to medicine, no signs of gross bleeding now.
Subjective
Subjective
Date of Service: March 19, 2024
Patient feeling better overall, tolerated full liquids without difficulty, much improved abdominal pain, no odynophagia, chest pain or shortness of breath.
Objective
Data Reviewed
Laboratory Data:
Laboratory Results
03/19/24 04:27
03/19/24 04:27
Laboratory Results
PT 17.5 Sec (11.4-14.6) H 03/15/24 05:35
INR 1.45 03/15/24 05:35
APTT 34.7 Sec (23.4-35.0) 03/15/24 05:35
Phosphorus 3.0 mg/dl (2.5-4.5) 03/17/24 03:23
Magnesium 1.7 mg/dl (1.6-2.3) 03/19/24 04:27
Total Bilirubin 0.6 mg/dl (0.2-1.3) 03/19/24 04:27
AST 73 U/L (14-36) H 03/19/24 04:27
ALT 41 U/L (0-35) H 03/19/24 04:27
Alkaline Phosphatase 75 U/L (38-126) 03/19/24 04:27
Lipase 69 U/L (23-300) 03/14/24 22:40
Vital Signs and I&O:
Vital Signs
Temp Pulse Resp BP Pulse Ox
98.1 F 92 18 164/79 95
03/19/24 03:45 03/19/24 03:45 03/19/24 03:45 03/19/24 03:45 03/19/24 03:45
I&O
03/17/24 03/18/24 03/19/24
06:59 06:59 06:59
Intake Total 2157 / 2237 3255 / 3255 3340 / 3340
Output Total 4106 / 4136 4425 / 4425 9560 / 9560
Balance -1949 / -1899 -1170 / -1170 -6220 / -6220
Physical Exam
Physical Exam
General: NAD
Abdomen: normal bowel sounds, soft, no tenderness, no masses or bruits, no ascites
[2024-03-19 07:55] VITALS: BP 184/109
[2024-03-19] MEDS: KCL 20 MEQ PO (08:53)
[2024-03-19] MEDS: PROTONIX 40 MG PO (08:53)
[2024-03-19] MEDS: VITAMIN B1 100 MG PO (08:53)
[2024-03-19] MEDS: FOLVITE 1 MG PO (08:53)
[2024-03-19] MEDS: NORVASC 5 MG PO (08:54)
--- NOTE | 2024-03-19 10:51 | W.PN.HOSP.TC ---
Addendum entered and electronically signed by Joel Adams DO 03/19/24 13:40:
Repeat potassium better, 3.6.
Nephrology okay with discharge today.
BMP, CBC on Saturday, March 23, results to go to her primary care doctor.
Provided a prescription for the labs to be done.
Original Note:
Today's Communication/Plan
-
Replete potassium
BMP at 12:00
Discharge planning
Assessment / Plan
Assessment / Plan
Gen-AAOx3, NAD
HEENT-NC, AT, anicteric, clear oral mm
Neck-supple
CV-reg, no M, +S1/S2
Lungs-clear B/L
Abd-soft, nondistended, improving tenderness
Ext-left upper extremity edema
Musculoskeletal-no cyanosis, clubbing
Skin-warm and dry
Neuro-grossly non-focal
Psych-calm, cooperative
Hemorrhagic shock -due to acute GI bleed related acute blood loss anemia. Shock resolved. Off vasopressors.
No evidence of sepsis. Discontinued antibiotics.
Acute GI bleed -possibly due to mesenteric ischemia. EGD showed severe reflux esophagitis with no bleeding. Normal duodenum. No specimens collected. Sucralfate started by GI service. Continue IV Protonix twice daily.
Holding off on CTA due to JULI.
Last colonoscopy was 01/20/2024. Preparation of the colon was poor. Multiple polyps were noted. Diverticulosis noted. Internal hemorrhoids.
Stools returned to normal color. Bleeding has resolved. Diet advanced to solids.
Acute blood loss anemia -on background chronic anemia. Etiology of acute blood loss anemia due to to acute GI bleed. Has had 4 units of blood transfused so far. Hemoglobin has remained stable, 8.9 today.
Acute thrombocytopenia -most likely due to acute blood loss anemia, consumption. Monitor for now.
Pancytopenia -explanation for leukopenia unclear. Monitor for now.
JULI -due to shock, ATN, anemia. Kohli catheter in place. Large urine output noted. Nephrology input noted. Creatinine trending down. Continue IV fluids, I's and O's are -3.4 L.
Hypokalemia -received 60 mill equivalents of KCl this morning, recheck BMP at 12:00.
Hypomagnesemia -replete intravenously.
Left basilic vein thrombus - probably acute, although noted on prior US from May 2023 as well.
Acute nonischemic myocardial injury -due to critical illness. Troponin trending down.
Accidental APAP overdose (adm early February 2024)
Severe metabolic acidosis, lactic acidosis -resolved. Now with met alkalosis, concern for contraction alkalosis given negative I/O, large urine output (almost 3L). Increase IVF rate.
Alcohol use disorder -discussed with patient that strict abstinence would be in her best interest given presentation with GI bleed, pancytopenia. She expressed desire to stop drinking. Social work to provide resources.
Alcoholic Liver Disease
Serum ETOH level 51 mg/dL on adm
-Continue monitoring MSAS
-Alcohol withdrawal protocol
-Continue thiamine and folic acid
Anxiety
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
Essential HTN -does not appear to be on home meds. Will start low-dose amlodipine. Blood pressure elevated.
Chronic diarrhea
Alcohol related gastritis/esophagitis
Chronic dilated common bile duct
Fatty liver
BPPV
Migraine with aura
Orthostatic hypotension
Moderate-sized hiatal hernia
Hypomagnesemia
Cholecystectomy
Former Smoker
Full code
Dispo -PT recommends home health. Patient states she lives with 2 other friends. High risk for readmission given her known alcoholism and home situation. Spoke with daughter on the phone. I asked social work to see if there is any other
arrangements for this patient on discharge. She appears almost ready for discharge, will check BMP at 12:00 to see if hypokalemia is improving.
Updated daughter Azul on the phone. She lives in [place].
Anticipated Discharge: Within 24 hours
Subjective/Interval History
-
Date of Service: March 19, 2024
Patient seen and examined. Complaining of mild soreness of her arms bilaterally.
Objective Data
-
Labs:
Laboratory Results
03/19/24 03/19/24
04:27 12:00
WBC 4.9
Hgb 8.9 L
Hct 26.8 L
Plt Count 52 L
Sodium 139 Pending
Potassium 3.0 L Pending
Chloride 104 Pending
Carbon Dioxide 30 Pending
BUN 20 H Pending
Creatinine 2.1 H Pending
Glucose 98 Pending
Calcium 8.3 L Pending
Total Bilirubin 0.6
AST 73 H
ALT 41 H
Alkaline Phosphatase 75
Vital Signs:
Vital Signs
Temp Pulse Resp BP Pulse Ox
98.2 F 90 16 184/109 92
03/19/24 07:55 03/19/24 07:55 03/19/24 07:55 03/19/24 07:55 03/19/24 07:55
I&O
03/18/24 03/19/24 03/20/24
06:59 06:59 06:59
Intake Total 3255 / 3255 3340 / 3340
Output Total 4425 / 4425 9560 / 9560
Balance -1170 / -1170 -6220 / -6220
Review of Systems
-
History Source: Patient
All other systems: Reviewed and negative
--- NOTE | 2024-03-19 11:21 | W.PN.NEPH.PH ---
Today's Communication / Plan
-
- trend BMPs
- replete lytes as needed
- monitor UOP
Assessment/Plan
-
Assessment
Hemorrhagic shock
Mesenteric ischemia
Acute kidney injury
Metabolic alkalosis
Hypokalemia
Left basilic vein nonocclusive thrombus
Chronic alcohol use
Thrombocytopenia
Acute blood loss anemia
Urinary retention with Kohli
Plan
It would appear that her acute kidney injury was likely potentiated by initial shock and then persisted with retention
D/c IVF. patient with 8L UOP (likely in the diuresis phase of ATN/post obstructive diuresis)
Replace electrolytes PRN
Urine studies consistent with ATN.
maintain Kohli (blood noted on UA)
Follow BMP as patient is high risk of developing electrolyte disturbances
Per Dr. Cha: discussed the potential of dialysis with her and she would not refuse if needed.
-
-
Date of Service: March 19, 2024
CC / HPI / ROS
-
Chief Complaint:
JULI
History of Present Illness:
Cr peak 3.9, down to 2.1 today with IVF
lactic acidosis improved
Review of Systems:
feeling well now
Labs
-
Labs:
WBC 4.9 10^3/uL (4.8-10.8) 03/19/24 04:27
RBC 2.92 10^6/uL (4.20-5.40) L 03/19/24 04:27
Hgb 8.9 g/dL (12.0-16.0) L 03/19/24 04:27
Hct 26.8 % (37.0-47.0) L 03/19/24 04:27
Plt Count 52 10^3/uL (130-400) L 03/19/24 04:27
eGFR 24.88 03/19/24 04:27
Phosphorus 3.0 mg/dl (2.5-4.5) 03/17/24 03:23
Albumin 2.7 g/dl (3.5-5.0) L 03/19/24 04:27
Physical Exam
-
Vital Signs:
Vital Signs
Temp Pulse Resp BP Pulse Ox
98.2 F 90 16 184/109 92
03/19/24 07:55 03/19/24 07:55 03/19/24 07:55 03/19/24 07:55 03/19/24 07:55
Cardiovascular:: Regular rate and rhythm
Respiratory:: Bilateral: CTA
Lung Excursion:: Normal
Abdomen:: Nontender and Soft
Bowel Sounds:: Normal
Extremity Edema:: None: Bilateral:
Kohli Catheter: Yes
[2024-03-19 11:55] VITALS: BP 163/100
[2024-03-19 12:25] VITALS: BP 143/99
[2024-03-19 12:59] LABS: Blood Urea Nitrogen 19 mg/dl (7-17); Calcium 8.5 mg/dl (8.4-10.2); Carbon Dioxide 31 mmol/L (22-30); Chloride 101 mmol/L (98-107); Estimated Creatinine Clearance 22 ml/min; Glucose 104 mg/dl (70-99); Potassium 3.6 mmol/L (3.5-5.1); Sodium 137 mmol/L (135-145); eGFR 24.88
--- NOTE | 2024-03-19 13:41 | W.DS.TRANS ---
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
-
Discharge Instructions:
Discharge Diagnosis/Procedures Acute GI bleed, acute kidney injury, electrolyte
abnormalities, alcohol use disorder
Diet Regular
Activity As tolerated
Driving Restrictions As prior to admission
Bathing Restrictions None
Blood Work CBC, BMP on March 23
Other Services VN
Instructions:
Stand-Alone Forms:
Changes to Home Medications: No
Discharge Medications:
DC Medications w/original date entered in [facility]
lorazepam 0.5 mg tablet 0.5 mg PO HS PRN anxiety 03/08/24
pantoprazole 40 mg tablet,delayed release 40 mg PO DAILY 03/08/24
dicyclomine 10 mg capsule 10 mg PO BIDPRN PRN indigestion 03/17/24
amlodipine 5 mg tablet 5 mg PO DAILY #30 tabs 03/19/24
folic acid 1 mg tablet 1 mg PO DAILY #30 tabs 03/19/24
potassium chloride 20 mEq tablet,extended release(part/cryst) 20 meq PO BID #20 tabs 03/19/24
sucralfate 100 mg/mL oral suspension 1 g (10 mL) PO ACHS #414 mL 03/19/24
thiamine HCl (vitamin B1) 100 mg tablet 100 mg PO BID #60 tabs 03/19/24
Home Medication Changes
Pending Results: No
--- NOTE | 2024-03-19 14:06 | CM ---
MD entered order for discharge.
Spoke with patient in room.
Offered VN she said she did not need VN .
Offered [facility] for substance abuse she declined need.
She said she will contact [facility] to get home.
PLAN Home no needs
--- NOTE | 2024-03-19 14:50 | PTCARENOTE ---
Went over discharge instructions with patient. PICC removed by VAT earlier today. Taken to discharge lounge to await uber.
== END 2024-03-19 14:56 | disposition home or self-care (01) | DRG 377 ==
LOC: 4 EAST ACU 23:34
PROVIDERS: Emergency Medicine; Hospitalist; Internal Medicine; Internal Medicine Pulmonary Disease; Nurse Practitioner Family; Nurse Practitioner Gerontology; Nurse Practitioner Primary Care; Radiology Diagnostic Radiology; ADMITTING PHYSICIAN Internal Medicine; ATTENDING PHYSICIAN Hospitalist; CONSULT PHYSICIAN Internal Medicine Cardiovascular Disease; CONSULT PHYSICIAN Specialist; EMERGENCY PHYSICIAN Emergency Medicine
PROC: 30233N1 Transfusion of Nonautologous Red Blood Cells into Peripheral Vein, Percutaneous Approach (ICD-10-PCS; 2024-03-15)
PROC: 02HV33Z Insertion of Infusion Device into Superior Vena Cava, Percutaneous Approach (ICD-10-PCS; 2024-03-15)
PROC: 0DJ08ZZ Inspection of Upper Intestinal Tract, Via Natural or Artificial Opening Endoscopic (ICD-10-PCS; 2024-03-15)
DX: K29.21 Alcoholic gastritis with bleeding (principal); K55.059 Acute (reversible) ischemia of intestine, part and extent unspecified; N17.0 Acute kidney failure with tubular necrosis; R57.8 Other shock; E87.20 Acidosis, unspecified; E87.3 Alkalosis; D62 Acute posthemorrhagic anemia; I5A Non-ischemic myocardial injury (non-traumatic); I82.612 Acute embolism and thrombosis of superficial veins of left upper extremity; D61.818 Other pancytopenia; E86.0 Dehydration; E83.51 Hypocalcemia; F10.20 Alcohol dependence, uncomplicated; F41.9 Anxiety disorder, unspecified; K21.00 Gastro-esophageal reflux disease with esophagitis, without bleeding; K70.9 Alcoholic liver disease, unspecified; K76.0 Fatty (change of) liver, not elsewhere classified; I95.1 Orthostatic hypotension; H81.10 Benign paroxysmal vertigo, unspecified ear; E83.42 Hypomagnesemia; G43.109 Migraine with aura, not intractable, without status migrainosus; D69.6 Thrombocytopenia, unspecified; K44.9 Diaphragmatic hernia without obstruction or gangrene; E87.6 Hypokalemia; K83.8 Other specified diseases of biliary tract; Y90.2 Blood alcohol level of 40-59 mg/100 ml; Z87.891 Personal history of nicotine dependence; Z90.49 Acquired absence of other specified parts of digestive tract; Z88.6 Allergy status to analgesic agent; Z88.2 Allergy status to sulfonamides; Z88.8 Allergy status to other drugs, medicaments and biological substances; Z87.11 Personal history of peptic ulcer disease; Z82.49 Family history of ischemic heart disease and other diseases of the circulatory system
CPT/HCPCS: 71045; 74176; 80048; 80053; 80306; 81003; 81015; 82010; 82077; 82330; 82570; 82805; 83605; 83690; 83735; 84100; 84300; 84484; 85014; 85018; 85025; 85027; 85384; 85610; 85730; 86850; 86900; 86901; 86920; 93005; 93306; 93971; 96365; 96366; 96375; 97116; 97163; 97166; 99291; P9016

== ENCOUNTER 2024-03-28 14:47 | Inpatient (IN) | payer MEDICARE, SELFPAY ==
[2024-03-28] VITALS (10 sets, daily range): BP systolic 108–138; BP diastolic 61–105; BMI 23.0; BMI 23.3
[2024-03-28 10:43] LABS: % Basophils 1.3 % (0-2); % Eosinophils 0.5 % (0-6); % Immature Granulocytes 0.6 % (0-0.5); % Lymphocytes 16.6 % (20.5-51.1); % Monocytes 5.1 % (1.7-9.3); % Neutrophils 75.9 % (42.2-75.2); Absolute Basophils 0.1 10^3/uL (0-0.2); Absolute Eosinophils 0.1 10^3/uL (0-0.7); Absolute Immature Granulocytes 0.1 10^3/uL (0-0.05); Absolute Lymphocytes 1.8 10^3/uL (1.2-3.4); Absolute Monocytes 0.6 10^3/uL (0.1-0.6); Absolute Neutrophils 8.3 10^3/uL (1.4-6.5); Hematocrit 29.1 % (37.0-47.0); Hemoglobin 10.4 g/dL (12.0-16.0); Mean Corp Hgb Conc. 35.7 g/dL (33.0-37.0); Mean Corpuscular Hgb 31.4 pg (27.0-31.0); Mean Corpuscular Volume 87.9 fL (81.0-99.0); Mean Platelet Volume 9.5 fL (7.4-10.4); Nucleated Red Blood Cells % 0 %; Platelet Count 453 10^3/uL (130-400); Red Blood Cell Count 3.31 10^6/uL (4.20-5.40); Red Cell Dist. Width 17.6 % (11.5-14.5)
--- NOTE | 2024-03-28 10:57 | ED.GENMED ---
History of Present Illness
General
Chief Complaint: Abdominal Pain
Time Seen by Provider: 03/28/24 10:27
History of Present Illness
History of Present Illness:
68-year-old female with history of alcohol abuse and upper GI bleeding presents to the emergency department for evaluation of upper abdominal pain associated with nausea and vomiting that began last night. Patient was recently mated to this
hospital for an upper GI bleed and hemorrhagic shock requiring multiple units of blood transfusion. She was discharged approximately 1 week ago and states she has been abstaining from alcohol since that time. Denies any hematemesis or melanotic
stools. Denies any diarrhea. Abdominal pain is primarily epigastric. Past history of cholecystectomy, hysterectomy, and appendectomy. Denies any fevers or chills.
Past History
Past History
ED Past Medical History: Cancer (Skin Cancer face), GERD, HTN, Psychiatric (Anxiety), Other (GI bleeding, Hiatal hernia. Ulcers, anemia. Migraine headaches, Colitis) and Other (recent colitis November/December 2023, severe esophagitis, alcohol abuse,
benzodiazepine withdrawal)
ED Past Surgical History: Appendectomy, Cholecystectomy, Gynecological (hysterectomy,), Orthopedic and Other (Mohs skin surgery, RUE epicondylitis X 2)
Patient has exhibited threatening behavior?: No
PSI?: No
Social History
Tobacco: Former smoker
Alcohol: Binge drinker
Drug: None and Other (History of benzodiazepine abuse)
Personal:
Living: alone
Family History
Family History: Other (Noncontributory)
Review of Systems
Review of Systems
Allergies reviewed?: Yes
All Other Systems: ROS reviewed and negative except as documented in HPI and ROS
Phy Exam
Physical Exam
Physical Exam:
GEN: Ill-appearing, tremulous, diaphoretic
Eyes: PERRLA, EOMs intact, no scleral icterus
HENT: NCAT, oral mucosa moist
Lungs: CTAB, no wheezes, rales, rhonchi, normal chest wall excursion
Cardiac: Tachycardic, regular
Abdomen: Soft focal tenderness to the epigastrium, no rigidity
Neuro: AO x 3, markedly tremulous at rest
MSK: No gross deformity or ecchymosis. No edema. No digital clubbing
Skin: No rashes, petechiae. Normal color, no pallor or jaundice.
Psych: Calm, cooperative, proper hygiene
Course
Orders/Labs/Results
Orders:
Orders
03/28/24 Breakfast
Clear Liquid
At Your Request: Full Participation
Does patient need a safe tray?: No
03/28/24 10:23
Electrocardiogram (*1) Urgent
Reason for Study: Abdominal Pain
EKG- Treatment ONCE
IV Insert/Care/Rem.- Treatment PRN
03/28/24 10:34
Basic Metabolic Panel Urgent
Complete Blood Count/With Diff Urgent
Lipase Urgent
03/28/24 10:43
HYDROmorphone [Dilaudid] 0.5 mg IV NOW STA
Ondansetron Injectable [Zofran] 4 mg IV NOW STA
03/28/24 10:46
CT Abd/Pel (IV only)-DH only Urgent
Comment:
Reason For Exam: epigastric pain
03/28/24 10:54
0.9% Sodium Chloride 1000 ml [Nss] 1,000 ml IV BOLUS
03/28/24 11:48
Alcohol Urgent
Txrmf-Gbbf-Bzacczs Urgent
Potassium Urgent
Venous Blood Gas Urgent
%Oxygen/Room Air: 98
03/28/24 12:32
Add On- LAB Urgent
Tests Added?: potassium; alcohol
03/28/24 12:48
HYDROmorphone [Dilaudid] 0.5 mg IV NOW STA
Pantoprazole [Protonix IV] 40 mg IV NOW STA
03/28/24 13:52
Lactated Ringers [Lr] 1,000 ml IV BOLUS
Lactated Ringers [Lr] 1,000 ml IV BOLUS
03/28/24 13:53
Admit/Transfer Patient As Directed
Co-Sign Provider:
Level of Care: Inpatient admission
Assign to:: Telemetry
Physician / Group: luciano/medicine
Diagnosis: intractable vomitting, benzo withdrawal
Reason for Telemetry: Arrhythmia
Date to Stop Telemetry: 03/31/24
Time to Stop Telemetry: 11:00
Reason for Hospitalization: intractable vomitting, benzo withdrawal
Expected length of stay greater than two midnights?: Yes
ELOS- Estimated Length of Stay in days: 3
I certify the patient meets the requirements for IP care: Yes
Alcohol Urgent
Urine Drug Abuse Screen Urgent
03/28/24 14:00
Flush (0.9% Sodium Chloride) [Flush (Nss)] See Dose Instructions IV PER PROTOCOL
03/28/24 14:23
Lorazepam [Ativan] 2 mg IV NOW STA
03/28/24 14:27
Code Status As Directed
Resuscitation Status: Full Code
03/28/24 14:30
Calcium Gluconate 4,000 mg 0.9% Sodium Chloride 250 ml [Nss] 250 ml IV ONCE
03/28/24 16:07
Troponin I Q6H
0.9% Sodium Chloride [Nss (Preservative Free)] See Protocol IV PRN PRN
Bisacodyl [Dulcolax] 10 mg RECTAL [id number] PRN
Dicyclomine [Bentyl] 10 mg PO BIDPRN PRN
Docusate W/Senna [Senokot-S] 1 tablet PO BIDPRN PRN
FOLic ACID [Folvite] 1 mg 0.9% Sodium Chloride 50 ml [Nss] 50 ml IV DAILYPRN
Heparin 5,000 units SC Q8
Lactated Ringers [Lr] 1,000 ml IV 75 mls/hr
Lorazepam [Ativan] 0.5 mg PO HSPRN PRN
Lorazepam [Ativan] 1 mg IV Q1HPRN PRN
Lorazepam [Ativan] 1 mg PO Q2HPRN PRN
Lorazepam [Ativan] 2 mg IV Q1HPRN PRN
Polyethylene Glycol Powder [Miralax] 17 grams PO DAILYPRN PRN
03/28/24 16:07
Case Management Consult Once
Case Management Consult: Other
Comment: Substance abuse counseling
DIETARY CONSULT Routine
Reason for Consult: Nutrition support, possible refeeding guidelines
BHB [B-Hydroxybutyrate] Urgent
Complete Blood Count/No Diff Routine
Comprehensive Metabolic Panel Routine
GGTP Urgent
Magnesium Urgent
PTT Urgent
Phosphorus Urgent
Prothrombin Time Urgent
Urinalysis Routine
Activity As Directed
Activity Level: As Tolerated
MSAS SCORE As Directed
MSAS Score 0-4: Repeat MSAS every 2 hours until 0-4 for three consecutive assessments, then every 4 hours x 48
hours.
MSAS Score 5-7: For MILD withdrawl symptoms. Repeat MSAS and RASS every 2 hours
MSAS Score 8-11: For MODERATE withdrawal symptoms. Repeat MSAS and RASS every 1 hour. Consider ICU or IMU
level of care.
MSAS Score > 11: For SEVERE withdrawal symptoms. Repeat MSAS and RASS every 1 hour. Notify provider, consider
ICU level of care.
MSAS Additional Instructions: If no improvement or no decrease in score from severe to moderate within 12
hours, consult psychiatry
MSAS Notify Provider: Notify provider if patient requires more than 10 mg of Lorazepam in eight hour period.
MSAS SCORE As Directed
MSAS Score 0-4: Repeat MSAS every 2 hours until 0-4 for three consecutive assessments, then every 4 hours x 48
hours.
MSAS Score 5-7: For MILD withdrawl symptoms. Repeat MSAS and RASS every 2 hours
MSAS Score 8-11: For MODERATE withdrawal symptoms. Repeat MSAS and RASS every 1 hour. Consider ICU or IMU
level of care.
MSAS Score > 11: For SEVERE withdrawal symptoms. Repeat MSAS and RASS every 1 hour. Notify provider, consider
ICU level of care.
MSAS Additional Instructions: If no improvement or no decrease in score from severe to moderate within 12
hours, consult psychiatry
MSAS Notify Provider: Notify provider if patient requires more than 10 mg of Lorazepam in eight hour period.
Vital Signs As Directed
Frequency: Per unit guidelines
DX Deep Vein Thrombosis Video Routine
03/28/24 20:00
Thiamine Injection 200 mg IV Q12
03/28/24 22:07
Troponin I Q6H
03/29/24 04:07
Troponin I Q6H
03/29/24 08:00
FOLic ACID [Folvite] 1 mg PO DAILY
Pantoprazole [Protonix IV] 40 mg IV DAILY
03/31/24 11:00
DC Protocol for Telemetry ONCE
03/31/24 20:00
Thiamine HCl [Vitamin B1] 100 mg PO BID
Abnormal Lab Results
03/28/24 03/28/24
10:34 11:48
WBC 11.0 H 10^3/uL
(4.8-10.8)
RBC 3.31 L 10^6/uL
(4.20-5.40)
Hgb 10.4 L g/dL
(12.0-16.0)
Hct 29.1 L %
(37.0-47.0)
MCH 31.4 H pg
(27.0-31.0)
RDW 17.6 H %
(11.5-14.5)
Plt Count 453 H 10^3/uL
(130-400)
Abs Immat Gran (auto) 0.1 H 10^3/uL
(0-0.05)
Absolute Neuts (auto) 8.3 H 10^3/uL
(1.4-6.5)
Immature Gran % 0.6 H %
(0-0.5)
Neutrophils % 75.9 H %
(42.2-75.2)
Lymphocytes % 16.6 L %
(20.5-51.1)
VBG pH 7.44 H
(7.32-7.43)
VBG pCO2 27 L mmHg
(35-48)
VBG pO2 173 H mmHg
(30-50)
VBG HCO3 18.3 L mmol/L
(22-27)
Carbon Dioxide 14 L* mmol/L
(22-30)
Creatinine 1.1 H mg/dL
(0.6-1.0)
Glucose 110 H mg/dl
(70-99)
Calcium 6.9 L* mg/dl
(8.4-10.2)
AST 366 H U/L
(14-36)
ALT 103 H U/L
(0-35)
Alkaline Phosphatase 184 H U/L
(38-126)
Total Protein 5.9 L g/dl
(6.3-8.2)
03/28/24 10:34
03/28/24 11:48
Vital Signs
Initial and Last Documented VS:
Initial Vital Signs
Temp Pulse Resp BP Pulse Ox
99.4 F 124 24 121/105 98
03/28/24 10:18 03/28/24 10:18 03/28/24 10:18 03/28/24 10:18 03/28/24 10:18
Last Documented Vital Signs
Temp Pulse Resp BP Pulse Ox
97.9 F 105 20 124/81 99
03/28/24 16:16 03/28/24 16:16 03/28/24 16:16 03/28/24 16:16 03/28/24 16:16
MDM/Problems Addressed
MDM/Problems Addressed:
High degree of suspicion for alcohol withdrawal syndrome despite the patient's insistence that she has not been drinking, CT does note esophagitis, will start on PPIs. Will admit to the hospital service due to electrolyte abnormalities and
intractable pain/vomiting
Comment
Comment:
EKG independently interpreted by me shows sinus tachycardia at a rate of [address] changes concerning for ischemia however limited by patient motion artifact
*Critical Care Note
Total Time (30-74mins, 75-104mins- exclusive of procedures): Not Applicable
ED Attending Note
-
Portions of this chart may have been created with voice recognition software.� Occasional wrong word or��sound alike� substitutions may have occurred due to the inherent limitations of voice recognition software.
Discharge Plan
Departure
Patient Disposition: Admit
Date of Disposition: 03/28/24
Time of Disposition: 13:27
Admit to: Med/Surg
Presentation/result/management discussed w/ accepting MD/DO: Hospitalist
Discharge Problem:
Esophagitis, Intractable vomiting, Compensated metabolic acidosis
Interventions
Interventions:
*Risk Screen - Suicide Last Done: 03/28/24 10:18
*General Assessment Last Done: 03/28/24 10:18
*Neglect/Abuse Screening Last Done: 03/28/24 10:18
ED- Fall Risk Assessment Last Done: 03/28/24 11:00
*ED COVID-19 Vaccine History Last Done: 03/28/24 10:18
*Nursing Disposition Last Done: 03/28/24 16:08
AL-Nazgdr-Dujtlwshfr Assessment Last Done: 03/28/24 11:00
Discharge Date and Time
Discharge Date/Time: 03/28/24 16:09
[2024-03-28 11:01] LABS: Blood Urea Nitrogen 13 mg/dl (7-17); Calcium 6.9 mg/dl (8.4-10.2); Carbon Dioxide 14 mmol/L (22-30); Chloride 101 mmol/L (98-107); Estimated Creatinine Clearance -18 ml/min; Glucose 110 mg/dl (70-99); Lipase 122 U/L (23-300); Sodium 136 mmol/L (135-145); eGFR 54.06
[2024-03-28] MEDS: ZOFRAN 4 MG IV ×2 (11:40→16:22)
[2024-03-28] MEDS: DILAUDID 0.5 MG IV ×2 (11:40→13:06)
[2024-03-28] MEDS: NSS 1000 IV (11:40)
[2024-03-28 12:04] LABS: Venous Blood Gas B.E. -4.7 mmol/L (-4 to +4); Venous Blood Gas HCO3 18.3 mmol/L (22-27); Venous Blood Gas pCO2 27 mmHg (35-48); Venous Blood Gas pH 7.44 (7.32-7.43); Venous Blood Gas pO2 173 mmHg (30-50)
[2024-03-28 12:18] LABS: ALT (SGPT) 103 U/L (0-35); AST (SGOT) 366 U/L (14-36); Albumin 3.6 g/dl (3.5-5.0); Alkaline Phosphatase 184 U/L (38-126); Direct Bilirubin 0.3 mg/dl (0.0-0.4); Total Bilirubin 1.1 mg/dl (0.2-1.3); Total Protein 5.9 g/dl (6.3-8.2)
[2024-03-28] MEDS: PROTONIX IV 40 MG IV (13:05)
[2024-03-28 14:27] LABS: Alcohol None Detected
--- NOTE | 2024-03-28 14:33 | HPS.HSE ---
Family Physician
-
Family Physician: Ishaan Ames
Chief Complaint
-
Intractable nausea/vomiting
History of Present Illness
68-year-old female with extensive history of alcohol use disorder now presents for intractable abdominal pain, vomiting. Patient was recently seen within the last 2 weeks and found to have severe reflux esophagitis without bleeding as well as
shock. Patient states she has not drank for weeks although patient has obvious tremors upon physical exam. Patient also has not renewed her prescription of Ativan for the last week, states she does not follow directions when she does not feel
well. Patient is also acknowledges not able to tolerate p.o. for the last few days. Cannot clarify further, poor historian, although low alert and oriented x 3. On vitals, patient noted tachycardic to 105, afebrile, normotensive, saturation 97%
on room air. White count 11, hemoglobin 10.4, platelets 453, appears to be hemoconcentrated. ABG was done showing pH 7.44, bicarb of 14. Beta Droxia butyrate still pending. Calcium 6.9. AST 366 ALT 103, alk phos 184. Lipase 122. CT done
showing small hiatal hernia, mild wall thickening of the distal esophagus, most presents for esophagitis.
Medical History
Past Medical History
Past Medical History: Reports Other
Additional Past Medical History:
Gastritis
Grade C/D Esophagitis
Alcohol Use Disorder
Irritable Bowel Syndrome
C Diff
Anxiety
Past Surgical History: Reports Other
Additional Past Surgical History:
Cholecystectomy
Appendectomy
Hysterectomy
Moh's Procedure
Right Upper Extremity Epicondylitis Surgery
Social History
Tobacco: Non-smoker
Alcohol: Other (Patient known history of alcohol use disorder, but is currently denies any alcohol use)
Drug: None
Personal: Single
Family History
Family History: Other (Father: Colon Cancer)
Allergies / Home Medications
Allergies reflects when Allergies were last updated in [facility].
Home Medications with original date entered in [facility]
Allergy/Medication List:
Allergies
Allergy/AdvReac Type Severity Reaction Status Date / Time
aspirin Allergy Unknown Verified 03/28/24 10:22
gabapentin Allergy Unknown Verified 03/28/24 10:22
NSAIDS (Non-Steroidal Allergy Unknown Verified 03/28/24 10:22
Anti-Inflamma
[id number] Reductase Allergy Swelling Verified 03/28/24 10:22
Inhibitor
Sulfa (Sulfonamide Allergy Unknown Verified 03/28/24 10:22
Antibiotics)
Home Medications
lorazepam 0.5 mg tablet 0.5 mg PO HSPRN PRN anxiety/sleep 03/08/24
pantoprazole 40 mg tablet,delayed release 40 mg PO DAILY 03/08/24
dicyclomine 10 mg capsule 10 mg PO BIDPRN PRN indigestion 03/17/24
esomeprazole magnesium 20 mg capsule,delayed release (Nexium) 20 mg PO BID 03/28/24
Review of Systems
-
History Source: Patient
A 12 point ROS was completed and negative except as noted: Yes
Physical Exam
Vital Signs
Vital Signs
Temp Pulse Resp BP Pulse Ox
97.4 F 105 19 112/61 89
03/28/24 14:28 03/28/24 13:00 03/28/24 11:00 03/28/24 13:00 03/28/24 13:00
Physical Exam
General: Well Developed and Appears in Distress (Anxious, tremors to extremities- upper)
HEENT: NormoCephalic, Anicteric and Moist mucous membranes
Respiratory: Clear
Cardiac: S1/S2 and Tachycardia
GI: Non Tender
Musculoskeletal: No Clubbing
Skin: Warm
Neuro: Awake, Alert, Oriented and Tremors (Upper extremities)
Hematologic/Lymphatic: No Lymphadenopathy
Psych: Calm
Laboratory Results
-
03/28/24 10:34
03/28/24 11:48
Laboratory Results
Total Bilirubin 1.1 mg/dl (0.2-1.3) 03/28/24 11:48
AST 366 U/L (14-36) H 03/28/24 11:48
ALT 103 U/L (0-35) H 03/28/24 11:48
Alkaline Phosphatase 184 U/L (38-126) H 03/28/24 11:48
Lipase 122 U/L (23-300) 03/28/24 10:34
Data Reviewed
-
CT Scan: Image Personally Visualized and interpreted and Report Reviewed by me
Lab Data: Labs Reviewed by me
Impression/Plan
-
IMPRESSION:
68-year-old with history of alcohol abuse with recurrent admissions due to intractable abdominal pain, vomiting and esophagitis, now presents for recurrent abdominal pain, or intractable vomiting. Noted to to have both metabolic acidosis and
alkalosis most likely secondary to vomiting as well as possible starvation ketoacidosis
PLAN:
#Intractable abdominal pain/vomiting
#Chronic severe reflux esophagitis
#Alcohol abuse
� Suspect due to withdrawal
� MCAS protocol
� Ativan as needed
� IV Zofran
� IV PPI
� Pain control
�IV fluids
� Clear liquid diet
� Alcohol level, UDS
-thiamine/folate
#Leukocytosis
� Most likely reactive
� Monitor fever curve, white count
#Combined Metabolic acidosis and metabolic alkalosis
� Monitor with resuscitation
-Is most likely secondary to vomiting, suspected ketoacidosis
-Follow-up alcohol level
� Follow-up beta-hydroxybutyrate
�monitor bicarb levels
� IV fluids, LR
#Hypocalcemia
-Monitor replete
#Transaminitis
� Appears to be correlating with alcohol transaminitis patterns
� Continue to monitor
Follow-up alcohol level next�CT imaging with no remarkable findings
Bilirubin normal
Anxiety
- continue DIRECTOR OF RADIOLOGY Lorazepam
#DVT ppx
-hsq
[2024-03-28] MEDS: LR 1000 IV ×3 (14:38→17:09)
[2024-03-28] MEDS: ATIVAN 2 MG IV (14:39)
[2024-03-28] MEDS: CALCIUM GLUCONATE 290 MG IV (15:37)
[2024-03-28] MEDS: HEPARIN 5000 UNITS SC ×2 (16:22→23:01)
--- NOTE | 2024-03-28 16:30 | PTCARENOTE ---
Received pt from ED. AAO*3 and notable tremors. VSS. patient denies any chest pain or shortness of breath. Pt oriented to room. All admission questions answered and reviewed with patient. Call campos within reach. MSAS 5.
[2024-03-28] MEDS: ATIVAN 1 MG PO (16:37)
[2024-03-28 17:38] LABS: Urine Albumin Negative (Neg - Trace); Urine Bilirubin Negative (Negative); Urine Character Clear (Clear); Urine Color Yellow; Urine Glucose Negative (Negative); Urine Ketone Negative (Negative); Urine Leukocyte 2+ (Negative); Urine Nitrite Negative (Negative); Urine Occult Blood 1+ (Negative); Urine Specific Gravity 1.015 (<1.030); Urine Urobilinogen Negative (Neg - 1+)
[2024-03-28 17:39] LABS: Hematocrit 23.4 % (37.0-47.0); Hemoglobin 8.5 g/dL (12.0-16.0); Mean Corp Hgb Conc. 36.3 g/dL (33.0-37.0); Mean Corpuscular Hgb 31.7 pg (27.0-31.0); Mean Corpuscular Volume 87.3 fL (81.0-99.0); Platelet Count 271 10^3/uL (130-400); Red Blood Cell Count 2.68 10^6/uL (4.20-5.40); Red Cell Dist. Width 17.7 % (11.5-14.5); White Blood Cell Count 15.4 10^3/uL (4.8-10.8)
[2024-03-28 17:46] LABS: INR 1.06; PT 13.9 Sec (11.4-14.6)
[2024-03-28 17:47] LABS: APTT 23.7 Sec (23.4-35.0)
[2024-03-28 17:50] LABS: Amphetamines Negative (Negative); Barbiturates Negative (Negative); Benzodiazepines Positive (Negative); Opiates Positive (Negative)
[2024-03-28 17:51] LABS: Buprenorphine Negative (Negative); Cocaine Negative (Negative); Marijuana Negative (Negative); Methadone Negative (Negative); Methamphetamines Negative (Negative); Phencyclidine Negative (Negative); Tricyclic Antidepressants Negative (Negative); Urine Red Blood Cell 0-2 /HPF (0-2); Urine Squamous Cell >30 /LPF (Few)
[2024-03-28 17:52] LABS: Urine Bacteria Few (Negative)
[2024-03-28 17:57] LABS: Alcohol None Detected
[2024-03-28 18:01] LABS: ALT (SGPT) 87 U/L (0-35); AST (SGOT) 267 U/L (14-36); Albumin 3.1 g/dl (3.5-5.0); Alkaline Phosphatase 169 U/L (38-126); Blood Urea Nitrogen 11 mg/dl (7-17); Calcium 8.2 mg/dl (8.4-10.2); Carbon Dioxide 21 mmol/L (22-30); Chloride 102 mmol/L (98-107); Estimated Creatinine Clearance 52 ml/min; GGTP 377 U/L (12-43); Glucose 103 mg/dl (70-99); Magnesium 0.6 mg/dl (1.6-2.3); Phosphorus 4.3 mg/dl (2.5-4.5); Potassium 3.4 mmol/L (3.5-5.1); Sodium 134 mmol/L (135-145); Total Bilirubin 1.2 mg/dl (0.2-1.3); Total Protein 5.4 g/dl (6.3-8.2); eGFR > 60.00
[2024-03-28 18:05] LABS: Troponin I < 0.012 ng/ml
[2024-03-28 18:07] LABS: Fentanyl, Urine Negative (Negative)
[2024-03-28 18:13] LABS: B-Hydroxybutyrate 0.52 mmol/L (0.02-0.27)
[2024-03-28] MEDS: MAGNESIUM SULFATE 100 IV (18:37)
[2024-03-28] MEDS: THIAMINE INJECTION 200 MG IV (20:11)
[2024-03-28] MEDS: DILAUDID 0.25 MG IV (20:22)
[2024-03-28] MEDS: COMPAZINE 5 MG IV (21:34)
[2024-03-28] MEDS: ATIVAN 0.5 MG PO (22:20)
[2024-03-28 23:43] LABS: Blood Urea Nitrogen 8 mg/dl (7-17); Calcium 7.6 mg/dl (8.4-10.2); Carbon Dioxide 24 mmol/L (22-30); Chloride 104 mmol/L (98-107); Estimated Creatinine Clearance 47 ml/min; Glucose 100 mg/dl (70-99); Magnesium 2.2 mg/dl (1.6-2.3); Potassium 3.2 mmol/L (3.5-5.1); Sodium 136 mmol/L (135-145); eGFR > 60.00
[2024-03-28 23:56] LABS: Troponin I < 0.012 ng/ml
[2024-03-29] MEDS: KCL 270 MEQ IV (01:03)
[2024-03-29] MEDS: DILAUDID 0.5 MG IV ×6 (01:05→21:20)
[2024-03-29 03:00] VITALS: BP 126/69
[2024-03-29] MEDS: COMPAZINE 5 MG IV ×3 (04:36→21:19)
[2024-03-29 06:14] LABS: % Basophils 0.8 % (0-2); % Eosinophils 3.5 % (0-6); % Immature Granulocytes 0.7 % (0-0.5); % Lymphocytes 24.2 % (20.5-51.1); % Neutrophils 62.8 % (42.2-75.2); Absolute Basophils 0.1 10^3/uL (0-0.2); Absolute Eosinophils 0.3 10^3/uL (0-0.7); Absolute Immature Granulocytes 0.1 10^3/uL (0-0.05); Absolute Lymphocytes 1.8 10^3/uL (1.2-3.4); Absolute Monocytes 0.6 10^3/uL (0.1-0.6); Absolute Neutrophils 4.7 10^3/uL (1.4-6.5); Hematocrit 24.6 % (37.0-47.0); Hemoglobin 8.5 g/dL (12.0-16.0); Mean Corp Hgb Conc. 34.6 g/dL (33.0-37.0); Mean Corpuscular Hgb 30.8 pg (27.0-31.0); Mean Corpuscular Volume 89.1 fL (81.0-99.0); Mean Platelet Volume 9.5 fL (7.4-10.4); Nucleated Red Blood Cells % 0 %; Platelet Count 320 10^3/uL (130-400); Red Blood Cell Count 2.76 10^6/uL (4.20-5.40); Red Cell Dist. Width 17.8 % (11.5-14.5); White Blood Cell Count 7.5 10^3/uL (4.8-10.8)
[2024-03-29 06:38] LABS: Blood Urea Nitrogen 6 mg/dl (7-17); Calcium 7.6 mg/dl (8.4-10.2); Carbon Dioxide 23 mmol/L (22-30); Chloride 108 mmol/L (98-107); Estimated Creatinine Clearance 47 ml/min; Glucose 98 mg/dl (70-99); Magnesium 1.7 mg/dl (1.6-2.3); Potassium 3.9 mmol/L (3.5-5.1); Sodium 138 mmol/L (135-145); eGFR > 60.00
[2024-03-29 06:43] LABS: Troponin I < 0.012 ng/ml
[2024-03-29 07:00] VITALS: BP 133/75
[2024-03-29] MEDS: LR 1000 IV ×2 (07:26→23:04)
[2024-03-29] MEDS: FOLVITE 1 MG PO (07:27)
[2024-03-29] MEDS: PROTONIX IV 40 MG IV (07:27)
[2024-03-29] MEDS: THIAMINE INJECTION 200 MG IV ×2 (07:27→21:19)
[2024-03-29] MEDS: NSS (PRESERVATIVE FREE) 10 ML IV (07:27)
[2024-03-29] MEDS: HEPARIN 5000 UNITS SC ×3 (07:27→23:07)
[2024-03-29] MEDS: MAGNESIUM SULFATE 50 IV (09:18)
[2024-03-29 09:44] LABS: Phosphorus 3.2 mg/dl (2.5-4.5)
[2024-03-29 11:00] VITALS: BP 110/71
--- NOTE | 2024-03-29 14:16 | W.PN.HOSP.TC ---
Addendum entered and electronically signed by Layton Hernández MD 03/29/24 14:22:
#Hypokalemia
#Hypomagnesemia
� Monitor replete
� Monitor for refeeding syndrome
Original Note:
Today's Communication/Plan
-
adv to regular diet
ativan/msas
anticipate dc within 24 hours
trend lfts
Assessment / Plan
Assessment / Plan
Physical Exam
General: Well Developed and Appears in Distress (Anxiety and tremors improved)
HEENT: NormoCephalic, Anicteric and Moist mucous membranes
Respiratory: Clear
Cardiac: S1/S2 and Tachycardia
GI: Non Tender
Musculoskeletal: No Clubbing
Skin: Warm
Neuro: Awake, Alert, Oriented x3
Hematologic/Lymphatic: No Lymphadenopathy
Psych: Calm
68-year-old with history of alcohol abuse with recurrent admissions due to intractable abdominal pain, vomiting and esophagitis, now presents for recurrent abdominal pain, or intractable vomiting. Noted to to have both metabolic acidosis and
alkalosis most likely secondary to vomiting as well as possible starvation ketoacidosis
PLAN:
#Intractable abdominal pain/vomiting
#Chronic severe reflux esophagitis
#Alcohol abuse
� Suspect due to withdrawal from ativan pills (has not taken in a few days since running out)
� [facility]AS protocol
� Ativan as needed
� IV Zofran
� IV PPI
� Pain control
�IV fluids
�Advance to Regular diet and monitor
� Alcohol level neg
-thiamine/folate
#Leukocytosis
� Most likely reactive
� Monitor fever curve, white count
-resolved
#Combined Metabolic acidosis and metabolic alkalosis, resolving
-Is most likely secondary to vomiting, suspected ketoacidosis
� Follow-up beta-hydroxybutyrate (mildly elevated)
� Monitor with resuscitation
�monitor bicarb levels
� IV fluids, LR
#Hypocalcemia
-Monitor replete
#Transaminitis
� Appears to be correlating with alcohol transaminitis patterns
� Continue to monitor
-Bilirubin normal
-no abdominal pain
Anxiety
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
#DVT ppx
-hsq
Anticipated Discharge: Within 24 hours
Subjective/Interval History
-
Date of Service: March 29, 2024
Feels better today, able to tolerate clear liquids, no further vomiting episodes
Objective Data
-
Labs:
Laboratory Results
03/29/24
05:58
WBC 7.5
Hgb 8.5 L
Hct 24.6 L
Plt Count 320
Sodium 138
Potassium 3.9
Chloride 108 H
Carbon Dioxide 23
BUN 6 L
Creatinine 1.0
Glucose 98
Calcium 7.6 L
Vital Signs:
Vital Signs
Temp Pulse Resp BP Pulse Ox
98.3 F 95 16 110/71 95
03/29/24 11:00 03/29/24 11:00 03/29/24 11:00 03/29/24 11:00 03/29/24 11:00
I&O
03/28/24 03/29/24 03/30/24
06:59 06:59 06:59
Intake Total 2380 / 2380
Output Total 200 / 200
Balance 2180 / 2180
Review of Systems
-
History Source: Patient
All other systems: Not reviewed unless documented
Data Reviewed
-
Total Time Spent with Patient (in minutes): 45
CT Scan: Image personally visualized and interpreted and Report Reviewed by me
Labs: Labs Reviewed by me
[2024-03-29 15:00] VITALS: BP 143/78
[2024-03-29] MEDS: ZOFRAN 4 MG IV (16:14)
--- NOTE | 2024-03-29 16:22 | CM ---
manager background reviewed patient's chart and met with patient and patient lives with a friend in a one story home, with no steps to enter, patient is independent with adl's and ambulation, no dme, disease case manager received a consult for possible substance
abuse and patient denies the need for counseling or treatment options. Patient admits to not being able to keep track of her medications.
Pharmacy: [facility]
PCP: Dr. sIhaan Ames
Plan; Home with friend no needs.
[2024-03-29 19:25] VITALS: BP 155/91
[2024-03-29] MEDS: ATIVAN 0.5 MG PO (21:20)
[2024-03-29 23:29] VITALS: BP 140/76
[2024-03-30] MEDS: ZOFRAN 4 MG IV (01:05)
[2024-03-30] MEDS: DILAUDID 0.5 MG IV ×5 (01:05→19:23)
[2024-03-30 03:12] VITALS: BP 145/63
[2024-03-30] MEDS: COMPAZINE 5 MG IV ×3 (05:03→19:22)
[2024-03-30 07:00] VITALS: BP 126/83
[2024-03-30] MEDS: HEPARIN 5000 UNITS SC ×3 (07:42→23:05)
[2024-03-30] MEDS: FOLVITE 1 MG PO (07:42)
[2024-03-30] MEDS: NSS (PRESERVATIVE FREE) 10 ML IV (07:42)
[2024-03-30] MEDS: THIAMINE INJECTION 200 MG IV ×2 (07:43→19:15)
[2024-03-30] MEDS: PROTONIX IV 40 MG IV (07:43)
[2024-03-30 08:02] LABS: % Basophils 0.9 % (0-2); % Eosinophils 6.4 % (0-6); % Immature Granulocytes 1.1 % (0-0.5); % Lymphocytes 25.1 % (20.5-51.1); % Monocytes 7.8 % (1.7-9.3); % Neutrophils 58.7 % (42.2-75.2); Absolute Basophils 0.1 10^3/uL (0-0.2); Absolute Eosinophils 0.4 10^3/uL (0-0.7); Absolute Immature Granulocytes 0.1 10^3/uL (0-0.05); Absolute Lymphocytes 1.6 10^3/uL (1.2-3.4); Absolute Monocytes 0.5 10^3/uL (0.1-0.6); Absolute Neutrophils 3.8 10^3/uL (1.4-6.5); Hematocrit 26.7 % (37.0-47.0); Hemoglobin 9.1 g/dL (12.0-16.0); Mean Corp Hgb Conc. 34.1 g/dL (33.0-37.0); Mean Corpuscular Hgb 31.5 pg (27.0-31.0); Mean Corpuscular Volume 92.4 fL (81.0-99.0); Mean Platelet Volume 9.9 fL (7.4-10.4); Nucleated Red Blood Cells % 0.3 %; Platelet Count 301 10^3/uL (130-400); Red Blood Cell Count 2.89 10^6/uL (4.20-5.40); Red Cell Dist. Width 17.8 % (11.5-14.5); White Blood Cell Count 6.5 10^3/uL (4.8-10.8)
[2024-03-30 08:32] LABS: ALT (SGPT) 52 U/L (0-35); AST (SGOT) 80 U/L (14-36); Albumin 3.1 g/dl (3.5-5.0); Alkaline Phosphatase 138 U/L (38-126); Blood Urea Nitrogen 8 mg/dl (7-17); Calcium 7.7 mg/dl (8.4-10.2); Carbon Dioxide 31 mmol/L (22-30); Chloride 102 mmol/L (98-107); Estimated Creatinine Clearance 43 ml/min; Glucose 100 mg/dl (70-99); Magnesium 1.2 mg/dl (1.6-2.3); Potassium 3.6 mmol/L (3.5-5.1); Sodium 138 mmol/L (135-145); Total Bilirubin 1.1 mg/dl (0.2-1.3); Total Protein 5.4 g/dl (6.3-8.2); eGFR 54.06
[2024-03-30] MEDS: LR 1000 IV (10:07)
[2024-03-30 11:00] VITALS: BP 147/86
--- NOTE | 2024-03-30 11:48 | W.PN.HOSP.TC ---
Today's Communication/Plan
-
see plan
Assessment / Plan
Assessment / Plan
Physical Exam
General: Well Developed and Appears in Distress (Anxiety and tremors improved)
HEENT: NormoCephalic, Anicteric and Moist mucous membranes
Respiratory: Clear
Cardiac: S1/S2 and Tachycardia
GI: Non Tender
Musculoskeletal: No Clubbing
Skin: Warm
Neuro: Awake, Alert, Oriented x3
Hematologic/Lymphatic: No Lymphadenopathy
Psych: Calm
68-year-old with history of alcohol abuse with recurrent admissions due to intractable abdominal pain, vomiting and esophagitis, now presents for recurrent abdominal pain, or intractable vomiting. Noted to to have both metabolic acidosis and
alkalosis most likely secondary to vomiting as well as possible starvation ketoacidosis
PLAN:
#Intractable abdominal pain/vomiting
#Chronic severe reflux esophagitis
#Alcohol abuse
� Suspect due to withdrawal from ativan pills (has not taken in a few days since running out)
� MSAS protocol
� Ativan as needed
� IV Zofran
� IV PPI
� Pain control
� IV fluids
�Advance to Regular diet and monitor
� Alcohol level neg
-thiamine/folate
-patient remains with nausea, low Mag, needs PT/OT - monitor one more day, possible DC tomorrow
#Leukocytosis
� Most likely reactive
� Monitor fever curve, white count
-resolved
#Combined Metabolic acidosis and metabolic alkalosis, resolving
-Is most likely secondary to vomiting, suspected ketoacidosis
� Follow-up beta-hydroxybutyrate (mildly elevated)
� Monitor with resuscitation
�monitor bicarb levels
-stop fluids
#Hypocalcemia
-Monitor replete
#Transaminitis
� Appears to be correlating with alcohol transaminitis patterns
� Continue to monitor
-Bilirubin normal
-no abdominal pain
-improving
Anxiety
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
#DVT ppx
-hsq
Anticipated Discharge: 24 - 48 hours
Subjective/Interval History
-
Date of Service: March 30, 2024
still nauseated
no pain
feels weak
Objective Data
-
Labs:
Laboratory Results
03/30/24
07:09
WBC 6.5
Hgb 9.1 L
Hct 26.7 L
Plt Count 301
Sodium 138
Potassium 3.6
Chloride 102
Carbon Dioxide 31 H
BUN 8
Creatinine 1.1 H
Glucose 100 H
Calcium 7.7 L
Total Bilirubin 1.1
AST 80 H
ALT 52 H
Alkaline Phosphatase 138 H
Vital Signs:
Vital Signs
Temp Pulse Resp BP Pulse Ox
98.0 F 88 16 126/83 92
03/30/24 07:00 03/30/24 07:00 03/30/24 07:00 03/30/24 07:00 03/30/24 07:00
I&O
03/29/24 03/30/24 03/31/24
06:59 06:59 06:59
Intake Total 2380 / 2380 2074
Output Total 200 / 200
Balance 2180 / 2180 2074
Review of Systems
-
History Source: Patient
All other systems: Reviewed and negative
Physical Exam
-
General: No Apparent Distress
HEENT: PERRLA
Respiratory: Clear to Auscultation; Negative Wheezes
Cardiac: Regular Rhythm and S1/S2
GI: Soft, Nontender and Nondistended
Musculoskeletal: No Edema
Skin: Warm and Dry; Negative Rash
Neuro: AO x 3
Psych: Calm
Data Reviewed
-
Diagnostic Radiology: Report Reviewed by me
Labs: Labs Reviewed by me
[2024-03-30] MEDS: MAGNESIUM SULFATE 100 IV (12:11)
--- NOTE | 2024-03-30 13:08 | CM ---
Patient seen bedside.
Patient aware of CM availability should needs arise.
PT/OT eval (P).
Plan: home no needs anticipated.
patient will likely [facility] home.
[2024-03-30 15:00] VITALS: BP 123/71
[2024-03-30 19:28] VITALS: BP 150/80
[2024-03-30] MEDS: ATIVAN 0.5 MG PO (22:51)
[2024-03-30 23:49] VITALS: BP 147/93
[2024-03-31 03:33] VITALS: BP 145/80
[2024-03-31] MEDS: DILAUDID 0.5 MG IV ×2 (06:04→09:15)
[2024-03-31 07:00] VITALS: BP 143/91
[2024-03-31] MEDS: FOLVITE 1 MG PO (08:22)
[2024-03-31] MEDS: HEPARIN 5000 UNITS SC (08:23)
[2024-03-31] MEDS: PROTONIX IV 40 MG IV (08:23)
[2024-03-31] MEDS: NSS (PRESERVATIVE FREE) 10 ML IV (08:23)
[2024-03-31] MEDS: THIAMINE INJECTION 200 MG IV (08:24)
[2024-03-31 09:12] VITALS: BP 136/86; BP 139/77; PULSE 86; O2SAT 95
[2024-03-31 09:22] VITALS: BP 136/86; BP 139/77
[2024-03-31 10:56] LABS: ALT (SGPT) 43 U/L (0-35); AST (SGOT) 49 U/L (14-36); Albumin 3.6 g/dl (3.5-5.0); Alkaline Phosphatase 131 U/L (38-126); Blood Urea Nitrogen 14 mg/dl (7-17); Calcium 8.6 mg/dl (8.4-10.2); Carbon Dioxide 32 mmol/L (22-30); Chloride 98 mmol/L (98-107); Estimated Creatinine Clearance 39 ml/min; Glucose 101 mg/dl (70-99); Magnesium 1.4 mg/dl (1.6-2.3); Potassium 3.9 mmol/L (3.5-5.1); Sodium 136 mmol/L (135-145); Total Bilirubin 0.9 mg/dl (0.2-1.3); Total Protein 6.1 g/dl (6.3-8.2)
[2024-03-31 11:00] VITALS: BP 148/89
--- NOTE | 2024-03-31 11:24 | CM ---
Addendum entered by Allegra Acosta 03/31/24 11:50:
Patient requesting [facility], tt to liaison.
Patient attempting to find transportation with friend she lives with.
Plan: Home with [facility]
Original Note:
Patient seen bedside.
Ambulating in room.
CM will continue to follow for d/c needs.
Plan:home no needs anticipated.
--- NOTE | 2024-03-31 11:39 | W.PN.HOSP.TC ---
Today's Communication/Plan
-
OK for DC today
Assessment / Plan
Assessment / Plan
Physical Exam
General: Well Developed and Appears in Distress (Anxiety and tremors improved)
HEENT: NormoCephalic, Anicteric and Moist mucous membranes
Respiratory: Clear
Cardiac: S1/S2 and Tachycardia
GI: Non Tender
Musculoskeletal: No Clubbing
Skin: Warm
Neuro: Awake, Alert, Oriented x3
Hematologic/Lymphatic: No Lymphadenopathy
Psych: Calm
68-year-old with history of alcohol abuse with recurrent admissions due to intractable abdominal pain, vomiting and esophagitis, now presents for recurrent abdominal pain, or intractable vomiting. Noted to to have both metabolic acidosis and
alkalosis most likely secondary to vomiting as well as possible starvation ketoacidosis.
CT A/P
IMPRESSION:
Small hiatal hernia and mild wall thickening of the distal esophagus, most suspicious for esophagitis. No other acute inflammatory process in the abdomen or pelvis. Improvement of the duodenal wall thickening compared to the CT abdomen/pelvis from
03/15/2024.
PLAN:
#Intractable abdominal pain/vomiting
#Chronic severe reflux esophagitis
-patient has been on BID PPI with improvement in symptoms. she is tolerating regular diet. initially hesitant to go home today but she is now eating and drinking well. reassured her she needs close follow up
-avoid alcohol
-home health
Alcohol Use
-alcohol level negative on admit
-MSAS
-has not required PRN ativan - only for anxiety
lower quadrant abdominal pain
-patient eating and drinking well, states pain has been present at least several days - s/p CT earlier on admit without acute abnormality. suspect gas or constipation. she would like to avoid x-ray. will trial simethicone. patient states she
feels comfortable going home. advised she can take miralax for constipation at home
#Leukocytosis
� Most likely reactive
� Monitor fever curve, white count
-resolved
#Combined Metabolic acidosis and metabolic alkalosis, resolving
-Is most likely secondary to vomiting, suspected ketoacidosis
#Hypocalcemia
-Monitor replete
#Transaminitis
� Appears to be correlating with alcohol transaminitis patterns
� Continue to monitor - improved this AM
- Bilirubin normal
- Repeat CMP in one week
Anxiety
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
#DVT ppx
-hsq
Anticipated Discharge: Today
Subjective/Interval History
-
Date of Service: March 31, 2024
she ate all of her breakfast
some nausea but much improved
has some right lower quadrant discomfort, last bowel movement 2 days ago
Objective Data
-
Labs:
Laboratory Results
03/31/24
09:46
Sodium 136
Potassium 3.9
Chloride 98
Carbon Dioxide 32 H
BUN 14
Creatinine 1.2 H
Glucose 101 H
Calcium 8.6
Total Bilirubin 0.9
AST 49 H
ALT 43 H
Alkaline Phosphatase 131 H
Vital Signs:
Vital Signs
Temp Pulse Resp BP Pulse Ox
97.4 F 109 18 143/91 98
03/31/24 07:00 03/31/24 07:00 03/31/24 07:00 03/31/24 07:00 03/31/24 07:00
I&O
03/30/24 03/31/24 04/01/24
06:59 06:59 06:59
Intake Total 2074 1400 / 1400
Balance 2074 1400 / 1399
Review of Systems
-
History Source: Patient
All other systems: Reviewed and negative
Physical Exam
-
General: No Apparent Distress
HEENT: PERRLA
Respiratory: Clear to Auscultation; Negative Wheezes
Cardiac: Regular Rhythm and S1/S2
GI: Soft and Nontender
Musculoskeletal: No Edema
Skin: Warm and Dry; Negative Rash
Neuro: AO x 3
Psych: Calm
Data Reviewed
-
Diagnostic Radiology: Report Reviewed by me
Labs: Labs Reviewed by me
[2024-03-31] MEDS: MYLICON 80 MG PO (11:54)
--- NOTE | 2024-03-31 11:57 | W.DS.TRANS ---
DC Summary - Superintendent Meters
-
Discharge Instructions:
Discharge Diagnosis/Procedures esophagitis
Diet Regular
Activity As tolerated
Driving Restrictions As prior to admission
Bathing Restrictions None
Other Services VN,PT,OT
Instructions:
Stand-Alone Forms:
Changes to Home Medications: Yes
Discharge Medications:
DC Medications w/original date entered in [employer]
dicyclomine 10 mg capsule 10 mg PO BIDPRN PRN indigestion #60 caps 03/31/24
folic acid 1 mg tablet 1 mg PO DAILY #30 tabs 03/31/24
lorazepam 0.5 mg tablet 0.5 mg PO HSPRN PRN anxiety/sleep #7 tabs 03/31/24
pantoprazole 40 mg tablet,delayed release 40 mg PO BID GERD #120 tabs 03/31/24
polyethylene glycol 3350 17 gram oral powder packet (HealthyLax) 17 g PO DAILYPRN PRN constipation #14 ea 03/31/24
thiamine HCl (vitamin B1) 100 mg tablet 100 mg PO DAILY #30 tabs 03/31/24
Home Medication Changes
Take Protonix twice a day until further directed by your outpatient physician.
Completely avoid all alcohol - this is very important to let your esophagus heal.
Take folate/thiamine for repletion.
Take miralax as needed for constipation.
Pending Results: No
--- NOTE | 2024-03-31 13:15 | VNURNOTE ---
Home Health Liaison met with patient at bedside to discuss [facility] nurse/therapy, visits, schedule and homebound status. Patient is agreeable and understands that visits at home will be 1-2 x per week to assess and teach medical management. [facility]
brochure provided with contact information. Patient is aware that [facility] will contact them for start of care after discharge from . [facility] referral completed in [facility].
--- NOTE | 2024-03-31 14:53 | W.DCSUMMARY ---
Discharge Summary
Discharge Data
Date of Admission: 03/28/24
Date of Discharge: 03/31/24
-
Pending Results: No
Hospital Course
Discharging Physician : Dr. Charline Helton
Disposition : Home with Home Health
Primary care physician : Dr. Ishaan Ames
Principal Discharge diagnosis : Esophagitis
Hospital Course :
Ms. Trudy Longoria is a 68 yo woman with hx alcohol abuse, prior admission for abdominal pain, vomiting and esophagitis now presents with similar complaints. CT obtained which showed evidence of esophagitis. She was given IV PPI, IVF with
improvement in symptoms and she is tolerating a regular diet prior to discharge. She is told to take protonix twice a day and completely avoid alcohol. She is told to have close follow up with her PCP. Home health arranged.
Patient had transaminitis on admit that improved prior to discharge, can be further monitored as outpatient. Likely 2/2 alcohol use.
Her mag was repleted in-house and she was called post discharge to start daily magnesium.
Time spent on discharge 35 minutes.
Important imaging findings :
CT A/P
IMPRESSION:
Small hiatal hernia and mild wall thickening of the distal esophagus, most suspicious for esophagitis. No other acute inflammatory process in the abdomen or pelvis. Improvement of the duodenal wall thickening compared to the CT abdomen/pelvis from
03/15/2024.
Procedure findings :
Discharge Plan
-
Patient Disposition: Home with Home Care
Discharge Diagnosis/Procedures: esophagitis
Condition: Good
Diet: Regular
Activity: As tolerated
Driving Restrictions: As prior to admission
Bathing Restrictions: None
Other Services: VN, PT and OT
Referrals:
Ishaan Ames, DO [Family Provider] - in less than 1 week
Additional Discharge Medication Instructions: Take Protonix twice a day until further directed by your outpatient physician.
Completely avoid all alcohol - this is very important to let your esophagus heal.
Take folate/thiamine for repletion.
Take miralax as needed for constipation.
Prescriptions:
New
folic acid 1 mg Tablet
1 mg PO DAILY Qty: 30 0RF
polyethylene glycol 3350 [HealthyLax] 17 gram Powder In Packet
17 g PO DAILYPRN PRN (Reason: constipation) Qty: 14 0RF
thiamine HCl (vitamin B1) 100 mg Tablet
100 mg PO DAILY Qty: 30 0RF
magnesium L-lactate 84 mg tablet extended release
84 mg PO DAILY Qty: 30 0RF
Continued
lorazepam 0.5 mg Tablet
0.5 mg PO HSPRN PRN (Reason: anxiety/sleep) Qty: 7 0RF
Patient Comments:
03/08/2024, last filled on 11/25/2023 for 7 tabs for 7 days from [facility]
dicyclomine 10 mg Capsule
10 mg PO BIDPRN PRN (Reason: indigestion) Qty: 60 0RF
Changed
pantoprazole 40 mg tablet,delayed release (DR/EC)
40 mg PO BID Qty: 120 0RF
Discontinued
esomeprazole magnesium [Nexium] 20 mg Capsule,Delayed Release(Dr/Ec)
20 mg PO BID
Discharge Orders:
Discharge Patient (As Directed); Ordered 03/31/24
Ordered By: Charline Helton
Discharge Date and Time
Discharge Date/Time: 03/31/24 14:02
Print Language: VENEZUELAN
== END 2024-03-31 14:02 | disposition home health service (06) | DRG 392 ==
LOC: 4 WEST ACU 14:47
PROVIDERS: Nurse Practitioner Family; Physician Assistant; ADMITTING PHYSICIAN Internal Medicine; ATTENDING PHYSICIAN Student in an Organized Health Care Education/Training Program; EMERGENCY PHYSICIAN Emergency Medicine; FAMILY PHYSICIAN Family Medicine
DX: K21.00 Gastro-esophageal reflux disease with esophagitis, without bleeding (principal); E87.20 Acidosis, unspecified; E87.3 Alkalosis; F13.230 Sedative, hypnotic or anxiolytic dependence with withdrawal, uncomplicated; K44.9 Diaphragmatic hernia without obstruction or gangrene; E83.42 Hypomagnesemia; F10.10 Alcohol abuse, uncomplicated; R11.2 Nausea with vomiting, unspecified; F41.9 Anxiety disorder, unspecified; D72.829 Elevated white blood cell count, unspecified; E83.51 Hypocalcemia; R74.01 Elevation of levels of liver transaminase levels; E87.6 Hypokalemia; Z87.891 Personal history of nicotine dependence; Z88.6 Allergy status to analgesic agent; Z88.2 Allergy status to sulfonamides; Z88.8 Allergy status to other drugs, medicaments and biological substances
CPT/HCPCS: 74177; 80048; 80053; 80076; 80306; 80307; 81003; 81015; 82010; 82077; 82805; 82977; 83690; 83735; 84100; 84132; 84484; 85025; 85027; 85610; 85730; 93005; 96361; 96374; 96375; 96376; 97162; 97166; 99285; Q9967

== ENCOUNTER 2024-04-07 20:10 | Inpatient (IN) | payer MEDICARE, SELFPAY ==
[2024-04-07] VITALS (11 sets, daily range): BP systolic 119–163; BP diastolic 66–112; BMI 23.5; BMI 22.8
[2024-04-07 14:24] LABS: % Basophils 1.3 % (0-2); % Eosinophils 0.6 % (0-6); % Monocytes 10.2 % (1.7-9.3); % Neutrophils 68.9 % (42.2-75.2); Absolute Basophils 0.1 10^3/uL (0-0.2); Absolute Eosinophils 0.1 10^3/uL (0-0.7); Absolute Immature Granulocytes 0.1 10^3/uL (0-0.05); Absolute Lymphocytes 1.5 10^3/uL (1.2-3.4); Absolute Monocytes 0.8 10^3/uL (0.1-0.6); Absolute Neutrophils 5.6 10^3/uL (1.4-6.5); Hematocrit 29.5 % (37.0-47.0); Hemoglobin 10.2 g/dL (12.0-16.0); Mean Corp Hgb Conc. 34.6 g/dL (33.0-37.0); Mean Corpuscular Hgb 31.9 pg (27.0-31.0); Mean Corpuscular Volume 92.2 fL (81.0-99.0); Nucleated Red Blood Cells % 0 %; Platelet Count 279 10^3/uL (130-400); Red Cell Dist. Width 17.7 % (11.5-14.5); White Blood Cell Count 8.2 10^3/uL (4.8-10.8)
[2024-04-07 14:43] LABS: AST (SGOT) 74 U/L (14-36); Albumin 4.3 g/dl (3.5-5.0); Alkaline Phosphatase 134 U/L (38-126); Blood Urea Nitrogen 12 mg/dl (7-17); Calcium 8.9 mg/dl (8.4-10.2); Carbon Dioxide 19 mmol/L (22-30); Chloride 101 mmol/L (98-107); Estimated Creatinine Clearance 43 ml/min; Glucose 181 mg/dl (70-99); Lipase 175 U/L (23-300); Potassium 3.5 mmol/L (3.5-5.1); Sodium 137 mmol/L (135-145); Total Protein 6.9 g/dl (6.3-8.2); eGFR 54.06
[2024-04-07] MEDS: ZOFRAN ODT (ORALLY DISINTEGRATING) 4 MG PO (14:44)
--- NOTE | 2024-04-07 14:47 | EDRN ---
Received patient from home via EMS with c/o abdominal pain and nausea. Patient tremulous on arrival. Tachycardiac with rate 110-130's. Patient stated that the pain and nausea started this morning. Patient was here last week for benzo withdrawal.
Patient stated that she last took Ativan 2 days ago but did not slat pickler the prescription that was sent last week. [facility] Pharmacist called [facility] and was told that the prescription was picked on 04/01/24. Patient denies any ETOH use and last
drank 2 weeks ago. Unable to get IV access. IV team attempted and unable to get IV. Sending another IV team RN. notified of c/o nausea. Patient medicated with Zofran 4mg ODT.
[2024-04-07] MEDS: NSS 1000 IV (15:03)
[2024-04-07 15:10] LABS: ALT (SGPT) 41 U/L (0-35)
--- NOTE | 2024-04-07 15:16 | ED.GENMED ---
History of Present Illness
<Lisa Parra PA-C - Last Filed: 04/08/24 06:54>
General
Chief Complaint: Abdominal Symptoms
Source: patient
Time Seen by Provider: 04/07/24 15:07
History of Present Illness
History of Present Illness:
68yoF with a history of hypertension, anxiety, GERD, and IBS presenting via EMS for evaluation of abdominal pain and vomiting. Symptoms began this morning. She reports generalized pain throughout her abdomen. She is also having nausea and had
several episodes of vomiting today. When asked if she has any chest pain, patient states 'a little.' She denies any fevers, hematemesis, diarrhea, constipation, dysuria. She was admitted multiple times within the past month. She was initially
admitted from 03/14/24-03/21/24 for metabolic acidosis, JULI, and a GI bleed. Endoscopy during that hospitalization showed severe esophagitis. She was admitted again from 03/28/24-03/31/24 for metabolic acidosis, abdominal pain, and vomiting. She has a
documented history of alcohol abuse. She states she has not had a drink of alcohol in several weeks. She was prescribed Ativan which she picked up on 03/31/24 per PMDP review. She states she had been out of her Ativan for several days.
Past History
<Lisa Parra PA-C - Last Filed: 04/08/24 06:54>
Past History
ED Past Medical History: Cancer (Skin Cancer face), GERD, HTN, Psychiatric (Anxiety), Other (GI bleeding, Hiatal hernia. Ulcers, anemia. Migraine headaches, Colitis) and Other (recent colitis November/December 2023, severe esophagitis, alcohol abuse,
benzodiazepine withdrawal)
ED Past Surgical History: Appendectomy, Cholecystectomy, Gynecological (hysterectomy,), Orthopedic and Other (Mohs skin surgery, RUE epicondylitis X 2)
Patient has exhibited threatening behavior?: No
PSI?: No
Social History
Tobacco: Former smoker
Alcohol: Binge drinker
Drug: None and Other (History of benzodiazepine abuse)
Personal:
Living: alone
Family History
Family History: Other (Noncontributory)
Phy Exam
<Lisa Parra PA-C - Last Filed: 04/08/24 06:54>
Physical Exam
Physical Exam:
Chronically ill appearing female, mildly tremulous, non-toxic
General Physical Exam
General Presentation: mild distress
General age: appears stated age
General Skin: warm and dry
General Habitus: normal
General Mental: alert
Cardiovascular Exam
Cardiovascular Exam: regular rate/rhythm and no murmur
Pulmonary Exam
Pulmonary Exam: lungs clear, no respiratory distress, no crackles and no wheezing
Gastrointestinal Exam
Gastrointestinal Exam: soft, non distended and other (Generalized abdominal tenderness. No guarding or rebound. )
Palpation: generalized: Moderate tenderness
Skin Exam
Skin Exam: normal color and warm/dry
Psychiatric Exam
Psychiatric Exam: anxious
Course
<Lisa Parra PA-C - Last Filed: 04/08/24 06:54>
Orders/Labs/Results
Orders:
Orders
04/07/24 Breakfast
Clear Liquid
At Your Request: Full Participation
Does patient need a safe tray?: No
04/07/24 13:53
Electrocardiogram (*1) Urgent
Reason for Study: Abdominal Pain
EKG- Treatment ONCE
04/07/24 14:10
Alcohol Urgent
Complete Blood Count/With Diff Urgent
Comprehensive Metabolic Panel Urgent
Lipase Urgent
Magnesium Urgent
Comment: ADD ON
Phosphorus Urgent
Comment: ADD ON
04/07/24 14:43
Ondansetron Orally Disint [Zofran Odt (Orally Disintegrating)] 4 mg PO NOW STA
04/07/24 15:02
0.9% Sodium Chloride 1000 ml [Nss] 1,000 ml IV BOLUS
04/07/24 15:14
0.9% Sodium Chloride 250 ml [Nss] 250 ml IV BOLUS
Famotidine [Pepcid] 20 mg IV NOW STA
Fentanyl Citrate/Pf [Sublimaze] 50 mcg IV NOW STA
Ondansetron Injectable [Zofran] 4 mg IV NOW STA
04/07/24 15:16
CT Abd/pel W Iv And Oral Contr Urgent
Comment:
Reason For Exam: Generalized abd pain
Iohexol [Omnipaque] See Protocol PO NOW STA
04/07/24 15:19
Pantoprazole [Protonix IV] 40 mg IV NOW STA
04/07/24 15:45
Troponin I Urgent
04/07/24 17:02
Lorazepam [Ativan] 1 mg IV NOW STA
04/07/24 17:40
Lactate Level [Lactic Acid] Urgent
Venous Blood Gas Urgent
%Oxygen/Room Air: room air
04/07/24 18:16
Lorazepam [Ativan] 1 mg IV NOW STA
Thiamine Injection 100 mg IV NOW STA
04/07/24 18:41
Add On- LAB Urgent
Tests Added?: Alcohol level
04/07/24 19:00
FOLic ACID [Folvite] 1 mg 0.9% Sodium Chloride 50 ml [Nss] 50 ml IV ONCE
04/07/24 19:52
Admit/Transfer Patient As Directed
Co-Sign Provider:
Level of Care: Inpatient admission
Assign to:: Telemetry
Physician / Group: callie
Diagnosis: abdominal pain
Reason for Telemetry: Other
Other Reason for Telemetry: elevated lactic
Date to Stop Telemetry: 04/09/24
Time to Stop Telemetry: 11:00
Reason for Hospitalization: abdominal pain
Expected length of stay greater than two midnights?: Yes
ELOS- Estimated Length of Stay in days: 3
I certify the patient meets the requirements for IP care: Yes
PRN Pain Medication Management As Directed
May give lesser potent ordered pain med per pt: No
preference::
Protocol:: Medication orders for pain may NOT be administered in
a manner that defers to patient preference. Follow
all order instructions as written.
Contact provider if ordering parameters for pain need
to be adjusted.
04/07/24 19:53
Code Status As Directed
Resuscitation Status: Full Code
04/07/24 20:00
Piperacillin/Tazo 3.375 Gram [Zosyn] 3.375 gram in 50 ml IV NOW
04/07/24 20:03
Add On- LAB Urgent
Tests Added?: magnesium
04/07/24 20:06
0.9% Sodium Chloride 500 ml [Nss] 500 ml IV BOLUS
04/07/24 20:53
Urinalysis Routine
Date Specimen was Collected: 04/08/24
Time Specimen was Collected: 03:12
Urine Drug Abuse Screen Routine
Date Specimen was Collected: 04/08/24
Time Specimen was Collected: 03:12
04/07/24 20:54
0.9% Sodium Chloride [Nss (Preservative Free)] See Protocol IV PRN PRN
Dicyclomine [Bentyl] 10 mg PO BIDPRN PRN
FOLic ACID [Folvite] 1 mg 0.9% Sodium Chloride 50 ml [Nss] 50 ml IV DAILYPRN
HYDROmorphone [Dilaudid] 1 mg IV Q4HPRN PRN
Heparin 5,000 units SC Q12
Lorazepam [Ativan] 1 mg IV Q1HPRN PRN
Lorazepam [Ativan] 1 mg PO Q2HPRN PRN
Lorazepam [Ativan] 2 mg IV Q1HPRN PRN
Prochlorperazine [Compazine] 10 mg IV Q6HPRN PRN
04/07/24 20:54
Case Management Consult Once
Case Management Consult: Other
Comment: Substance abuse counseling
DIETARY CONSULT Routine
Reason for Consult: Nutrition support, possible refeeding guidelines
Activity As Directed
Activity Level: As Tolerated
MSAS SCORE As Directed
MSAS Score 0-4: Repeat MSAS every 2 hours until 0-4 for three consecutive assessments, then every 4 hours x 48
hours.
MSAS Score 5-7: For MILD withdrawl symptoms. Repeat MSAS and RASS every 2 hours
MSAS Score 8-11: For MODERATE withdrawal symptoms. Repeat MSAS and RASS every 1 hour. Consider ICU or IMU
level of care.
MSAS Score > 11: For SEVERE withdrawal symptoms. Repeat MSAS and RASS every 1 hour. Notify provider, consider
ICU level of care.
MSAS Additional Instructions: If no improvement or no decrease in score from severe to moderate within 12
hours, consult psychiatry
MSAS Notify Provider: Notify provider if patient requires more than 10 mg of Lorazepam in eight hour period.
Vital Signs As Directed
Frequency: Per unit guidelines
DX Deep Vein Thrombosis Video Routine
04/07/24 23:30
Lactic Acid Q6H
04/08/24 02:00
Piperacillin/Tazo 3.375 Gram [Zosyn] 3.375 gram in 50 ml IV Q6H
04/08/24 06:00
Complete Blood Count/No Diff IN AM
04/08/24 08:00
FOLic ACID [Folvite] 1 mg PO DAILY
Pantoprazole [Protonix IV] 40 mg IV BID
Thiamine Injection 200 mg IV Q12
04/09/24 06:00
Basic Metabolic Panel IN AM
Complete Blood Count/No Diff IN AM
LFT [Vhaxe-Eoml-Hqjywqy] IN AM
04/09/24 11:00
DC Protocol for Telemetry ONCE
04/10/24 06:00
Basic Metabolic Panel IN AM
Complete Blood Count/No Diff IN AM
04/11/24 06:00
Basic Metabolic Panel IN AM
Complete Blood Count/No Diff IN AM
04/11/24 08:00
Thiamine HCl [Vitamin B1] 100 mg PO BID
04/12/24 06:00
Basic Metabolic Panel IN AM
Complete Blood Count/No Diff IN AM
Abnormal Lab Results
04/07/24 04/07/24
14:10 17:40
RBC 3.20 L 10^6/uL
(4.20-5.40)
Hgb 10.2 L g/dL
(12.0-16.0)
Hct 29.5 L %
(37.0-47.0)
MCH 31.9 H pg
(27.0-31.0)
RDW 17.7 H %
(11.5-14.5)
Abs Immat Gran (auto) 0.1 H 10^3/uL
(0-0.05)
Absolute Monos (auto) 0.8 H 10^3/uL
(0.1-0.6)
Immature Gran % 1.0 H %
(0-0.5)
Lymphocytes % 18.0 L %
(20.5-51.1)
Monocytes % 10.2 H %
(1.7-9.3)
VBG pO2 73 H mmHg
(30-50)
VBG HCO3 21.2 L mmol/L
(22-27)
Carbon Dioxide 19 L mmol/L
(22-30)
Creatinine 1.1 H mg/dL
(0.6-1.0)
Glucose 181 H mg/dl
(70-99)
Lactic Acid 6.8 H* mmol/L
(0.7-2.0)
Magnesium 0.8 L* mg/dl
(1.6-2.3)
AST 74 H U/L
(14-36)
ALT 41 H U/L
(0-35)
Alkaline Phosphatase 134 H U/L
(38-126)
04/07/24 14:10
04/07/24 14:10
Vital Signs
Initial and Last Documented VS:
Initial Vital Signs
Temp Pulse Resp BP Pulse Ox
98.1 F 118 20 119/71 98
04/07/24 13:45 04/07/24 13:45 04/07/24 13:45 04/07/24 13:45 04/07/24 13:45
Last Documented Vital Signs
Temp Pulse Resp BP Pulse Ox
97.3 F 85 18 126/64 97
04/08/24 03:24 04/08/24 03:24 04/08/24 03:24 04/08/24 03:24 04/08/24 03:24
<Efra Fang, DO - Last Filed: 04/07/24 19:29>
Orders/Labs/Results
Orders:
Orders
04/07/24 Breakfast
Clear Liquid
At Your Request: Full Participation
Does patient need a safe tray?: No
04/07/24 13:53
Electrocardiogram (*1) Urgent
Reason for Study: Abdominal Pain
EKG- Treatment ONCE
04/07/24 14:10
Alcohol Urgent
Complete Blood Count/With Diff Urgent
Comprehensive Metabolic Panel Urgent
Lipase Urgent
Magnesium Urgent
Comment: ADD ON
Phosphorus Urgent
Comment: ADD ON
04/07/24 14:43
Ondansetron Orally Disint [Zofran Odt (Orally Disintegrating)] 4 mg PO NOW STA
04/07/24 15:02
0.9% Sodium Chloride 1000 ml [Nss] 1,000 ml IV BOLUS
04/07/24 15:14
0.9% Sodium Chloride 250 ml [Nss] 250 ml IV BOLUS
Famotidine [Pepcid] 20 mg IV NOW STA
Fentanyl Citrate/Pf [Sublimaze] 50 mcg IV NOW STA
Ondansetron Injectable [Zofran] 4 mg IV NOW STA
04/07/24 15:16
CT Abd/pel W Iv And Oral Contr Urgent
Comment:
Reason For Exam: Generalized abd pain
Iohexol [Omnipaque] See Protocol PO NOW STA
04/07/24 15:19
Pantoprazole [Protonix IV] 40 mg IV NOW STA
04/07/24 15:45
Troponin I Urgent
04/07/24 17:02
Lorazepam [Ativan] 1 mg IV NOW STA
04/07/24 17:40
Lactate Level [Lactic Acid] Urgent
Venous Blood Gas Urgent
%Oxygen/Room Air: room air
04/07/24 18:16
Lorazepam [Ativan] 1 mg IV NOW STA
Thiamine Injection 100 mg IV NOW STA
04/07/24 18:41
Add On- LAB Urgent
Tests Added?: Alcohol level
04/07/24 19:00
FOLic ACID [Folvite] 1 mg 0.9% Sodium Chloride 50 ml [Nss] 50 ml IV ONCE
04/07/24 19:52
Admit/Transfer Patient As Directed
Co-Sign Provider:
Level of Care: Inpatient admission
Assign to:: Telemetry
Physician / Group: callie
Diagnosis: abdominal pain
Reason for Telemetry: Other
Other Reason for Telemetry: elevated lactic
Date to Stop Telemetry: 04/09/24
Time to Stop Telemetry: 11:00
Reason for Hospitalization: abdominal pain
Expected length of stay greater than two midnights?: Yes
ELOS- Estimated Length of Stay in days: 3
I certify the patient meets the requirements for IP care: Yes
PRN Pain Medication Management As Directed
May give lesser potent ordered pain med per pt: No
preference::
Protocol:: Medication orders for pain may NOT be administered in
a manner that defers to patient preference. Follow
all order instructions as written.
Contact provider if ordering parameters for pain need
to be adjusted.
04/07/24 19:53
Code Status As Directed
Resuscitation Status: Full Code
04/07/24 20:00
Piperacillin/Tazo 3.375 Gram [Zosyn] 3.375 gram in 50 ml IV NOW
04/07/24 20:03
Add On- LAB Urgent
Tests Added?: magnesium
04/07/24 20:06
0.9% Sodium Chloride 500 ml [Nss] 500 ml IV BOLUS
04/07/24 20:53
Urinalysis Routine
Date Specimen was Collected: 04/08/24
Time Specimen was Collected: 03:12
Urine Drug Abuse Screen Routine
Date Specimen was Collected: 04/08/24
Time Specimen was Collected: 03:12
04/07/24 20:54
0.9% Sodium Chloride [Nss (Preservative Free)] See Protocol IV PRN PRN
Dicyclomine [Bentyl] 10 mg PO BIDPRN PRN
FOLic ACID [Folvite] 1 mg 0.9% Sodium Chloride 50 ml [Nss] 50 ml IV DAILYPRN
HYDROmorphone [Dilaudid] 1 mg IV Q4HPRN PRN
Heparin 5,000 units SC Q12
Lorazepam [Ativan] 1 mg IV Q1HPRN PRN
Lorazepam [Ativan] 1 mg PO Q2HPRN PRN
Lorazepam [Ativan] 2 mg IV Q1HPRN PRN
Prochlorperazine [Compazine] 10 mg IV Q6HPRN PRN
04/07/24 20:54
Case Management Consult Once
Case Management Consult: Other
Comment: Substance abuse counseling
DIETARY CONSULT Routine
Reason for Consult: Nutrition support, possible refeeding guidelines
Activity As Directed
Activity Level: As Tolerated
MSAS SCORE As Directed
MSAS Score 0-4: Repeat MSAS every 2 hours until 0-4 for three consecutive assessments, then every 4 hours x 48
hours.
MSAS Score 5-7: For MILD withdrawl symptoms. Repeat MSAS and RASS every 2 hours
MSAS Score 8-11: For MODERATE withdrawal symptoms. Repeat MSAS and RASS every 1 hour. Consider ICU or IMU
level of care.
MSAS Score > 11: For SEVERE withdrawal symptoms. Repeat MSAS and RASS every 1 hour. Notify provider, consider
ICU level of care.
MSAS Additional Instructions: If no improvement or no decrease in score from severe to moderate within 12
hours, consult psychiatry
MSAS Notify Provider: Notify provider if patient requires more than 10 mg of Lorazepam in eight hour period.
Vital Signs As Directed
Frequency: Per unit guidelines
DX Deep Vein Thrombosis Video Routine
04/07/24 23:30
Lactic Acid Q6H
04/08/24 02:00
Piperacillin/Tazo 3.375 Gram [Zosyn] 3.375 gram in 50 ml IV Q6H
04/08/24 06:00
Complete Blood Count/No Diff IN AM
04/08/24 08:00
FOLic ACID [Folvite] 1 mg PO DAILY
Pantoprazole [Protonix IV] 40 mg IV BID
Thiamine Injection 200 mg IV Q12
04/09/24 06:00
Basic Metabolic Panel IN AM
Complete Blood Count/No Diff IN AM
LFT [Bzqrv-Tuew-Lvaqkun] IN AM
04/09/24 11:00
DC Protocol for Telemetry ONCE
04/10/24 06:00
Basic Metabolic Panel IN AM
Complete Blood Count/No Diff IN AM
04/11/24 06:00
Basic Metabolic Panel IN AM
Complete Blood Count/No Diff IN AM
04/11/24 08:00
Thiamine HCl [Vitamin B1] 100 mg PO BID
04/12/24 06:00
Basic Metabolic Panel IN AM
Complete Blood Count/No Diff IN AM
Abnormal Lab Results
04/07/24 04/07/24
14:10 17:40
RBC 3.20 L 10^6/uL
(4.20-5.40)
Hgb 10.2 L g/dL
(12.0-16.0)
Hct 29.5 L %
(37.0-47.0)
MCH 31.9 H pg
(27.0-31.0)
RDW 17.7 H %
(11.5-14.5)
Abs Immat Gran (auto) 0.1 H 10^3/uL
(0-0.05)
Absolute Monos (auto) 0.8 H 10^3/uL
(0.1-0.6)
Immature Gran % 1.0 H %
(0-0.5)
Lymphocytes % 18.0 L %
(20.5-51.1)
Monocytes % 10.2 H %
(1.7-9.3)
VBG pO2 73 H mmHg
(30-50)
VBG HCO3 21.2 L mmol/L
(22-27)
Carbon Dioxide 19 L mmol/L
(22-30)
Creatinine 1.1 H mg/dL
(0.6-1.0)
Glucose 181 H mg/dl
(70-99)
Lactic Acid 6.8 H* mmol/L
(0.7-2.0)
Magnesium 0.8 L* mg/dl
(1.6-2.3)
AST 74 H U/L
(14-36)
ALT 41 H U/L
(0-35)
Alkaline Phosphatase 134 H U/L
(38-126)
04/07/24 14:10
04/07/24 14:10
Vital Signs
Initial and Last Documented VS:
Initial Vital Signs
Temp Pulse Resp BP Pulse Ox
98.1 F 118 20 119/71 98
04/07/24 13:45 04/07/24 13:45 04/07/24 13:45 04/07/24 13:45 04/07/24 13:45
Last Documented Vital Signs
Temp Pulse Resp BP Pulse Ox
97.3 F 85 18 126/64 97
04/08/24 03:24 04/08/24 03:24 04/08/24 03:24 04/08/24 03:24 04/08/24 03:24
<Lisa Parra PA-C - Last Filed: 04/08/24 06:54>
MDM/Problems Addressed
Differential Diagnosis Includes:
68yoF here with abdominal pain, nausea, vomiting. Recently admitted for the same. She reports being out of her Ativan for several days and she is tremulous on exam. She last picked up a 1 week supply of Ativan on 03/31/24 per PDMP review. She is
afebrile and hemodynamically stable. She is non-toxic appearing. No signs of peritonitis on abdominal exam. Differential diagnosis includes but is not limited to: esophagitis, GERD, intra-abdominal infection, benzodiazepine withdrawal
Initial ED plan: Check abdominal labs, lactate, troponin/EKG, and CT abdomen. IV Protonix, Pepcid, fentanyl, Zofran, and fluid bolus for symptoms.
<Lisa Parra PA-C - Last Filed: 04/08/24 06:54>
*EKG
Interpreted by ED Provider?: Yes
EKG Intrepretation Date: 04/07/24
Heart Rate: 114
Rate: tachycardiac
Rhythm: sinus
[place]: normal axis
Interval: normal interval
QRS Pattern: normal QRS
Ischemia: non-specific ST changes
*Critical Care Note
Total Time (30-74mins, 75-104mins- exclusive of procedures): Not Applicable
<Lisa Parra PA-C - Last Filed: 04/08/24 06:54>
Update Note
Update Note:
Labs reveal a mild metabolic acidosis with a bicarb of 19 which appears improved from prior labs. Hemoglobin stable. Creatinine at baseline. EKG shows sinus tachycardic with nonspecific T wave changes. Troponin is WNL. Lactate significantly
elevated at 6.8. Patient ultimately received IV Ativan with improvement in her tremulousness although she remains symptomatic. Patient signed out to Dr. Fang pending CT abdomen. She will require hospitalization.
<Efra Fang, - Last Filed: 04/07/24 19:29>
Update Note
Update Note:
Labs reveal a mild metabolic acidosis with a bicarb of 19 which appears improved from prior labs. Hemoglobin stable. Creatinine at baseline. EKG shows sinus tachycardic with nonspecific T wave changes. Troponin is WNL.
ED Attending Note
<Lisa Parra PA-C - Last Filed: 04/08/24 06:54>
-
Portions of this chart may have been created with voice recognition software.� Occasional wrong word or��sound alike� substitutions may have occurred due to the inherent limitations of voice recognition software.
<Efra Fang DO - Last Filed: 04/07/24 19:29>
ED Attending Note
Patient seen and examined by attending physician: Yes
I performed the substantive portion of visit, reviewed & personally made and approve the management plan that is documented in note by myself or LAXMI.: Yes
ED Attending Note:
I have seen and evaluated the patient with a [id number] encounter. I have spoken to the advance practicer provider and involved in the medical history, the physical exam, medical decision making.
Evaluation and management service: agree unless noted differently below.
Results interpretation: agree unless noted differently below.
Focused HPI: 68-year-old female presenting with nausea, vomiting and abdominal pain. This is her third visit for similar issues. Prior records indicate admission for GI bleeding which has already resolved. Records also indicate concern for
alcohol use disorder. Patient states that she has not drink alcohol in several weeks. She initially stated that she never filled her most recent Ativan prescription but the pharmacy confirmed that it was filled. When I brought this up to the
patient, she states she has been without Ativan for a few days. This raises my concern for Ativan withdrawal
Physical exam: Fidgety, tremulous, mild epigastric discomfort. Dry mucous membrane
Medical Decision Making: Will repeat CT to rule out any sort of acute abdominal pathology. Will give dose of Ativan to see if symptoms start to improve. I discussed with patient that I am concerned this could be an Ativan withdrawal the patient
disagrees with this concern.
Discharge Plan
Departure
Patient Disposition: Admit
Date of Disposition: 04/07/24
Time of Disposition: 19:29
Admit to: Med/Surg
Presentation/result/management discussed w/ accepting MD/DO: Hospitalist
Discharge Problem:
Abdominal pain
Interventions
Interventions:
*Risk Screen - Suicide Last Done: 04/07/24 14:12
*General Assessment Last Done: 04/07/24 13:45
*Neglect/Abuse Screening Last Done: 04/07/24 14:12
ED- Fall Risk Assessment Last Done: 04/07/24 14:12
*ED COVID-19 Vaccine History Last Done: 04/07/24 22:46
*Nursing Disposition Last Done: 04/07/24 20:51
DK-Jvyybm-Oeblqilnsi Assessment Last Done: 04/07/24 16:06
Discharge Date and Time
Discharge Date/Time: 04/07/24 20:51
[2024-04-07] MEDS: PEPCID 20 MG IV (15:38)
[2024-04-07] MEDS: SUBLIMAZE 50 MCG IV (15:38)
[2024-04-07] MEDS: PROTONIX IV 40 MG IV (15:38)
[2024-04-07] MEDS: OMNIPAQUE 50 ML PO (15:39)
[2024-04-07] MEDS: ZOFRAN 4 MG IV (15:45)
[2024-04-07 16:38] LABS: Troponin I < 0.012 ng/ml
[2024-04-07] MEDS: ATIVAN 1 MG IV ×2 (17:22→18:28)
[2024-04-07 17:50] LABS: Venous Blood Gas B.E. -3.3 mmol/L (-4 to +4); Venous Blood Gas HCO3 21.2 mmol/L (22-27); Venous Blood Gas O2 Sat % 96.3 %; Venous Blood Gas pCO2 35 mmHg (35-48); Venous Blood Gas pH 7.39 (7.32-7.43); Venous Blood Gas pO2 73 mmHg (30-50)
[2024-04-07 18:05] LABS: Lactic Acid 6.8 mmol/L (0.7-2.0)
[2024-04-07] MEDS: THIAMINE INJECTION 100 MG IV (18:27)
[2024-04-07 19:14] LABS: Alcohol None Detected
--- NOTE | 2024-04-07 19:27 | HPS.HSE ---
Family Physician
-
Family Physician: Ishaan Ames
Chief Complaint
-
abdominal pain associated with n/v/d
History of Present Illness
68yoF with a history of hypertension, anxiety, GERD, and IBS presenting via EMS for evaluation of abdominal pain and vomiting. Symptoms began last night. She reports generalized pain throughout her abdomen. She is also having nausea and had
several episodes of vomiting today. she had several episodes of diarrhea yesterday. She denies any fevers, chills, chest pain, sob. denied KHAN, dizzy or syncopal episode. denied dysuria or hematuria.
CT abdomen pelvis with Small sliding hiatal hernia.Mild fatty infiltration of liver. Few small stable hepatic cysts.No obstructive uropathy.Unremarkable appearance of the stomach. No evidence of bowel obstruction. Diverticulosis without acute
diverticulitis. Suggestion of mild wall thickening involving the descending colon through sigmoid colon. Possibly related to underdistention. The possibility of nonspecific colitis may be considered in the proper clinical setting.The appendix
appears relatively short. There is a suggestion of mild appendix wall thickening measuring up to 4 millimeters, though with enteric contrast material refluxing into the appendix lumen, and no adjacent soft tissue stranding to suggest acute
appendicitis.
patient received Ativan, normal saline, Zofran dn PPI, thiamine in ER. admitting for further management.
Medical History
Past Medical History
Past Medical History: Reports Other
Additional Past Medical History:
GERD
Alcohol abuse
Anxiety
Esophagitis
Gastritis
Alcoholic hepatitis
GI bleed
Past Surgical History: Reports Other
Additional Past Surgical History:
Left arm surgery
Hysterectomy
Social History
Tobacco: Former Smoker
Alcohol: Occasional
Drug: None
Living: With Roomate
Family History
Family History: Not pertinent
Allergies / Home Medications
Allergies reflects when Allergies were last updated in [facility].
Home Medications with original date entered in [facility]
Allergy/Medication List:
Allergies
Allergy/AdvReac Type Severity Reaction Status Date / Time
aspirin Allergy Unknown Verified 04/07/24 13:52
gabapentin Allergy Unknown Verified 04/07/24 13:52
NSAIDS (Non-Steroidal Allergy Unknown Verified 04/07/24 13:52
Anti-Inflamma
[id number] Reductase Allergy Swelling Verified 04/07/24 13:52
Inhibitor
Sulfa (Sulfonamide Allergy Unknown Verified 04/07/24 13:52
Antibiotics)
Home Medications
dicyclomine 10 mg capsule 10 mg PO BIDPRN PRN indigestion #60 caps 03/31/24
lorazepam 0.5 mg tablet 0.5 mg PO HSPRN PRN anxiety/sleep #7 tabs 03/31/24
pantoprazole 40 mg tablet,delayed release 40 mg PO BID GERD #120 tabs 03/31/24
Review of Systems
-
Constitutional: Reports No Symptoms
EENT: Reports No Symptoms
Respiratory: Reports No Symptoms
Cardiac: Reports No Symptoms
Abdomen/GI: Reports Abdominal Pain, Nausea, Vomiting and Diarrhea
: Reports No Symptoms
Musculoskeletal: Reports No Symptoms
Skin: Reports No Symptoms
Neurological: Reports No Symptoms
Endocrine: Reports No Symptoms
Hematologic/Lymphatic: Reports No Symptoms
Psych: Reports No Symptoms
Physical Exam
Vital Signs
Vital Signs
Temp Pulse Resp BP Pulse Ox
98.1 F 101 27 163/79 98
04/07/24 13:45 04/07/24 18:26 04/07/24 18:26 04/07/24 17:00 04/07/24 18:26
Physical Exam
General: Well Developed, Well Nourished and No Apparent Distress
HEENT: NormoCephalic, Moist mucous membranes and Atraumatic
Respiratory: Clear
Cardiac: S1/S2 and Regular Rhythm; No Murmur or Rub
GI: Soft, Non Distended, Normal Bowel Sounds and Tender; No Organomegaly
Rectal: Deferred by Provider
Musculoskeletal: No Clubbing, No Cyanosis and No Edema
Skin: No Rash
Neuro: AO x 3 and Nonfocal/grossly intact
Psych: Calm
Laboratory Results
-
04/07/24 14:10
04/07/24 14:10
Laboratory Results
Lactic Acid 6.8 mmol/L (0.7-2.0) H* 04/07/24 17:40
Total Bilirubin 1.0 mg/dl (0.2-1.3) 04/07/24 14:10
AST 74 U/L (14-36) H 04/07/24 14:10
ALT 41 U/L (0-35) H 04/07/24 14:10
Alkaline Phosphatase 134 U/L (38-126) H 04/07/24 14:10
Troponin I < 0.012 ng/ml 04/07/24 15:45
Lipase 175 U/L (23-300) 04/07/24 14:10
Data Reviewed
-
CT Scan: Report Reviewed by me
Lab Data: Labs Reviewed by me
Impression/Plan
-
#abdominal pain associated with n/v likely from colitis
##Chronic severe reflux esophagitis
-lactic 6.8
-CT abdomen pelvis with Small sliding hiatal hernia.Mild fatty infiltration of liver. Few small stable hepatic cysts.No obstructive uropathy.Unremarkable appearance of the stomach. No evidence of bowel obstruction. Diverticulosis without acute
diverticulitis. Suggestion of mild wall thickening involving the descending colon through sigmoid colon. Possibly related to underdistention. The possibility of nonspecific colitis may be considered in the proper clinical setting.The appendix
appears relatively short. There is a suggestion of mild appendix wall thickening measuring up to 4 millimeters, though with enteric contrast material refluxing into the appendix lumen, and no adjacent soft tissue stranding to suggest acute
appendicitis.
-trend lactic acid
-PPI continued
-iv Zosyn
-Dilaudid prn pain
-Compazine prn for n/v
#alcohol/benzo withdrawal
-alcohol protocol
-monitor MSAS score
#anemia of chronic disease
-hgb 10.2
-no active bleeding
-ctm
#chronic kidney disease stage 2b
-cr 1.1
-ctm
#transaminase likely from alcohol abuse
-ast 74,alt 41,alk 134
-trend LFT
#Anxiety
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
#DVT ppx
-hsq
[2024-04-07] MEDS: FOLVITE 50.2 MG IV (19:34)
--- NOTE | 2024-04-07 20:04 | W.PN.UPDATE ---
Addendum entered and electronically signed by Charline Helton MD 04/07/24 20:52:
Hypomagnesemia
-replete
-patient on tele
Original Note:
Update Note
Progress Note Update
This is an addendum to H&P written by FABRIC WORKER FOREMAN Shawna Mcgowan
I saw and examined the patient.
The FABRIC WORKER FOREMAN's note was reviewed and I agree with the note.
Comment:
Ms. Trudy Longroia is a 68 yo woman with hx alcohol abuse, prior admission for abdominal pain, vomiting and esophagitis with recent admission 03/28-03/31/24 for these symptoms presents to the ER now with lower abdominal pain and vomiting. CT with
possible colitis.
Triage VS: T 98.1, P 118, RR 20, BP 119/71, SpO2 98%
LABS: WBC 8.2, Hg 10.2, Na 137, K+ 3.5, Cr 1.1, Glucose 181, lactate 6.8
CT A/P
IMPRESSION:
Small sliding hiatal hernia.
Mild fatty infiltration of liver. Few small stable hepatic cysts.
No obstructive uropathy.
Unremarkable appearance of the stomach. No evidence of bowel obstruction. Diverticulosis without acute diverticulitis. Suggestion of mild wall thickening involving the descending colon through sigmoid colon. Possibly related to underdistention. The
possibility of nonspecific colitis may be considered in the proper clinical setting.
The appendix appears relatively short. There is a suggestion of mild appendix wall thickening measuring up to 4 millimeters, though with enteric contrast material refluxing into the appendix lumen, and no adjacent soft tissue stranding to suggest
acute appendicitis.
Lower Abdominal Pain
Colitis
-history and exam suggestive of colitis with CT findings, pain not localized to RLQ
-admit to tele
-IV Zosyn
-IVF
-clears
-pain control
Lactic Acidosis
-patient without sepsis, suspect elevated lactate all 2/2 severe dehydration and poor liver clearance in setting of hx alcohol use
-give additional 500cc bolus in ER for total 1.75 L and continue IVF, trend lactate and bolus as needed
CKD III
-creatinine baseline
Transaminitis
Hx Alcohol use
-patient states last drink 2 weeks ago, alcohol level normal
-however showed signs of withdrawal in the ER and received ativan, will continue MSAS scoring
Anxiety
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
Hx Esophagitis/GERD
-continue BID PPI
76 minutes spent on patient evaluation, medical decision making, coordination of care
[2024-04-07] MEDS: ZOSYN 50 IV (20:23)
[2024-04-07] MEDS: NSS 500 IV (20:24)
[2024-04-07 20:50] LABS: Magnesium 0.8 mg/dl (1.6-2.3)
[2024-04-07 21:12] LABS: Phosphorus 3.8 mg/dl (2.5-4.5)
[2024-04-07] MEDS: COMPAZINE 10 MG IV (21:12)
[2024-04-07] MEDS: DILAUDID 1 MG IV (21:12)
--- NOTE | 2024-04-07 21:15 | PTCARENOTE ---
Pt arrived to unit from ED and ambulated with x1 assist from stretcher to bed. Pt is AAOx3 and reports 8/20 pain throughout abdomen. PRN IV Dilaudid provided to pt as well as PRN IV Compazine as pt also reports nausea. Pt oriented to room, call
campos within reach, VS stable on admission.
[2024-04-07] MEDS: MAGNESIUM SULFATE 100 IV (21:35)
[2024-04-07] MEDS: HEPARIN SC (21:52)
[2024-04-07 23:53] LABS: Lactic Acid 1.4 mmol/L (0.7-2.0)
[2024-04-08 00:44] LABS: Hepatitis C Antibody Reactive (Negative)
[2024-04-08] MEDS: ZOSYN 50 IV ×4 (02:25→20:18)
[2024-04-08] MEDS: NSS with KCL 20 MEQ 1000 IV ×2 (02:25→14:33)
[2024-04-08] MEDS: DILAUDID 0.5 MG IV ×4 (02:59→22:28)
--- NOTE | 2024-04-08 03:08 | DOWNTIME ---
There was a [employer] Medical Client Boiler Engineer Downtime on 04/08/2024 from 0100 to 04/08/2024 at 0255. Downtime documentation of patient's care, including medication administrations, has been reconciled in the electronic record per guidelines. Refer to the
patient's paper chart under the miscellaneous tab to see printed paper medication records and downtime forms.
[2024-04-08 03:24] VITALS: BP 126/64
[2024-04-08] MEDS: COMPAZINE 10 MG IV ×2 (04:33→14:36)
[2024-04-08 06:15] LABS: Urine Albumin Negative (Neg - Trace); Urine Bilirubin Negative (Negative); Urine Character Clear (Clear); Urine Color Yellow; Urine Glucose Negative (Negative); Urine Ketone Negative (Negative); Urine Leukocyte Negative (Negative); Urine Nitrite Negative (Negative); Urine Occult Blood Negative (Negative); Urine Urobilinogen Negative (Neg - 1+)
[2024-04-08 06:33] LABS: Amphetamines Negative (Negative); Barbiturates Negative (Negative); Benzodiazepines Positive (Negative); Buprenorphine Negative (Negative); Cocaine Negative (Negative); Marijuana Negative (Negative); Methadone Negative (Negative); Methamphetamines Negative (Negative); Opiates Positive (Negative); Phencyclidine Negative (Negative); Tricyclic Antidepressants Negative (Negative)
[2024-04-08 06:55] LABS: Fentanyl, Urine Negative (Negative)
[2024-04-08 07:00] VITALS: BP 137/79
[2024-04-08] MEDS: FOLVITE 1 MG PO (08:37)
[2024-04-08] MEDS: HEPARIN 5000 UNITS SC (08:38)
[2024-04-08] MEDS: THIAMINE INJECTION 200 MG IV ×2 (08:39→20:19)
[2024-04-08] MEDS: PROTONIX IV 40 MG IV ×2 (08:39→20:18)
[2024-04-08] MEDS: NSS (PRESERVATIVE FREE) 10 ML IV ×2 (08:40→20:19)
--- NOTE | 2024-04-08 08:44 | W.PN.HOSP.TC ---
Today's Communication/Plan
-
see bold
Assessment / Plan
Assessment / Plan
HPI: 68yoF with a history of hypertension, anxiety, GERD, and IBS presenting via EMS for evaluation of abdominal pain and vomiting. Symptoms began last night. She reports generalized pain throughout her abdomen. She is also having nausea and had
several episodes of vomiting today. she had several episodes of diarrhea yesterday. She denies any fevers, chills, chest pain, sob. denied KHAN, dizzy or syncopal episode. denied dysuria or hematuria.
CT abdomen pelvis with Small sliding hiatal hernia.Mild fatty infiltration of liver. Few small stable hepatic cysts.No obstructive uropathy.Unremarkable appearance of the stomach. No evidence of bowel obstruction. Diverticulosis without acute
diverticulitis. Suggestion of mild wall thickening involving the descending colon through sigmoid colon. Possibly related to underdistention. The possibility of nonspecific colitis may be considered in the proper clinical setting.The appendix
appears relatively short. There is a suggestion of mild appendix wall thickening measuring up to 4 millimeters, though with enteric contrast material refluxing into the appendix lumen, and no adjacent soft tissue stranding to suggest acute
appendicitis.
#Acute colitis
Continue IV fluids, IV Zosyn, pain meds
Trial of full liquids tonight
#Hypokalemia
Replete by p.o., magnesium okay
#Hypomagnesemia
Repleted and resolved
#Lactic acidosis
Resolved with IV fluids
#Chronic normocytic anemia
Hemoglobin 8.8 today, which is about her baseline
Continue to monitor
#Stage III CKD
Creatinine stable, continue to trend
#History of alcohol use
Patient states her last drink was 2 weeks ago
ER reports signs of withdrawal, and she received Ativan
Continue MSAS protocol
#History of esophagitis/GERD
Continue PPI twice daily
DVT prophylaxis�subcu Lovenox
Full code
Total time spent to see the patient on the floor, examine the patient, review data and lab results, discuss treatment plan with patient, nursing staff around 40 minutes.
Physical Exam
General: Appears to not feel well, no acute distress
HEENT: Normocephalic, Atraumatic, EOMI, MMM
Respiratory: Clear to Auscultation bilaterally
Cardiac: Normal S1/S2, Regular Rate and Rhythm
GI: Soft, tender at the right lower quadrant, Nondistended, Normal Bowel Sounds
Extremities: No Clubbing, Cyanosis, or Edema
Neuro: Nonfocal/Grossly Intact
Psych: Calm, Cooperative
Derm: No Visible lesions
Anticipated Discharge: > 48 hours
Subjective/Interval History
-
Date of Service: April 08, 2024
Patient reports improvement in her right lower quadrant abdominal pain.
Objective Data
-
Labs:
Laboratory Results
04/08/24
07:57
WBC Pending
Hgb Pending
Hct Pending
Plt Count Pending
Sodium Pending
Potassium Pending
Chloride Pending
Carbon Dioxide Pending
BUN Pending
Creatinine Pending
Glucose Pending
Calcium Pending
Total Bilirubin Pending
AST Pending
ALT Pending
Alkaline Phosphatase Pending
Vital Signs:
Vital Signs
Temp Pulse Resp BP Pulse Ox
97.3 F 85 18 126/64 97
04/08/24 03:24 04/08/24 03:24 04/08/24 03:24 04/08/24 03:24 04/08/24 03:24
I&O
04/07/24 04/08/24 04/09/24
06:59 06:59 06:59
Intake Total 0 / 0 520 / 520
Output Total 400 / 400
Balance -400 / -400 520 / 520
[2024-04-08 08:45] LABS: ALT (SGPT) 28 U/L (0-35); AST (SGOT) 50 U/L (14-36); Albumin 3.4 g/dl (3.5-5.0); Alkaline Phosphatase 108 U/L (38-126); Blood Urea Nitrogen 7 mg/dl (7-17); Calcium 7.8 mg/dl (8.4-10.2); Carbon Dioxide 27 mmol/L (22-30); Chloride 104 mmol/L (98-107); Direct Bilirubin 0.1 mg/dl (0.0-0.4); Estimated Creatinine Clearance 47 ml/min; Glucose 92 mg/dl (70-99); Magnesium 1.9 mg/dl (1.6-2.3); Phosphorus 3.8 mg/dl (2.5-4.5); Potassium 3.1 mmol/L (3.5-5.1); Sodium 137 mmol/L (135-145); Total Bilirubin 1.6 mg/dl (0.2-1.3); Total Protein 5.7 g/dl (6.3-8.2); eGFR > 60.00
[2024-04-08 08:54] LABS: Hematocrit 25.5 % (37.0-47.0); Hemoglobin 8.8 g/dL (12.0-16.0); Mean Corp Hgb Conc. 34.5 g/dL (33.0-37.0); Mean Corpuscular Hgb 31.4 pg (27.0-31.0); Mean Corpuscular Volume 91.1 fL (81.0-99.0); Mean Platelet Volume 9.1 fL (7.4-10.4); Platelet Count 213 10^3/uL (130-400); Red Cell Dist. Width 18.4 % (11.5-14.5); White Blood Cell Count 5.6 10^3/uL (4.8-10.8)
[2024-04-08 11:00] VITALS: BP 117/74
--- NOTE | 2024-04-08 11:03 | CM ---
Patient seen bedside.
Dx abdominal/chest discomfort, N/V
Lives with friend in a 1 story home.
Patient has a walker, but is independent with ambulation.
Patient has been to [facility] in the past, denies VN.
Patient currently on clears. IV anbx.
No d/c needs anticipated.
Denies need for SA counseling.
PMD: Dr Ames
Pharmacy: [facility]
Plan: home no needs.
[2024-04-08 15:00] VITALS: BP 140/76
[2024-04-08] MEDS: KCL 40 MEQ PO ×2 (17:09→22:28)
[2024-04-08] MEDS: LOVENOX 40 MG SC (17:09)
[2024-04-08] MEDS: ROXICODONE 10 MG PO ×2 (17:15→21:22)
[2024-04-08 19:32] VITALS: BP 126/71
[2024-04-08 22:59] VITALS: BP 148/88
[2024-04-09] MEDS: ZOSYN 50 IV ×4 (01:31→19:29)
[2024-04-09] MEDS: NSS with KCL 20 MEQ 1000 IV ×2 (01:31→22:16)
[2024-04-09] MEDS: ROXICODONE 10 MG PO ×5 (01:36→18:42)
[2024-04-09 03:47] VITALS: BP 146/72
[2024-04-09 07:45] VITALS: BP 136/83
--- NOTE | 2024-04-09 08:01 | W.PN.HOSP.TC ---
Today's Communication/Plan
-
see bold
Assessment / Plan
Assessment / Plan
HPI: 68yoF with a history of hypertension, anxiety, GERD, and IBS presenting via EMS for evaluation of abdominal pain and vomiting. Symptoms began last night. She reports generalized pain throughout her abdomen. She is also having nausea and had
several episodes of vomiting today. she had several episodes of diarrhea yesterday. She denies any fevers, chills, chest pain, sob. denied KHNA, dizzy or syncopal episode. denied dysuria or hematuria.
CT abdomen pelvis with Small sliding hiatal hernia.Mild fatty infiltration of liver. Few small stable hepatic cysts.No obstructive uropathy.Unremarkable appearance of the stomach. No evidence of bowel obstruction. Diverticulosis without acute
diverticulitis. Suggestion of mild wall thickening involving the descending colon through sigmoid colon. Possibly related to underdistention. The possibility of nonspecific colitis may be considered in the proper clinical setting.The appendix
appears relatively short. There is a suggestion of mild appendix wall thickening measuring up to 4 millimeters, though with enteric contrast material refluxing into the appendix lumen, and no adjacent soft tissue stranding to suggest acute
appendicitis.
#Acute colitis
Continue IV fluids, IV Zosyn, pain meds
Trial of low residue
#Acute gout flare of left foot
Check uric acid
IV dexamethasone x 1, oral prednisone starting tomorrow
Pain meds
#Hypokalemia
#Hypomagnesemia
Continue to replete as needed
#Lactic acidosis
Resolved with IV fluids
#Chronic normocytic anemia
Hemoglobin about her baseline
Continue to monitor
#Stage III CKD
Creatinine stable, continue to trend
#History of alcohol use
Patient states her last drink was 2 weeks ago
ER reports signs of withdrawal, and she received Ativan
Continue MSAS protocol
#History of esophagitis/GERD
Continue PPI twice daily
DVT prophylaxis�subcu Lovenox
Full code
Total time spent to see the patient on the floor, examine the patient, review data and lab results, discuss treatment plan with patient, nursing staff around 51 minutes.
Physical Exam
General: Appears to not feel well, no acute distress
HEENT: Normocephalic, Atraumatic, EOMI, MMM
Respiratory: Clear to Auscultation bilaterally
Cardiac: Normal S1/S2, Regular Rate and Rhythm
GI: Soft, tender at the right lower quadrant, Nondistended, Normal Bowel Sounds
Extremities: No Clubbing, Cyanosis, or Edema
Neuro: Nonfocal/Grossly Intact
Psych: Calm, Cooperative
Derm: No Visible lesions
Anticipated Discharge: 24 - 48 hours
Subjective/Interval History
-
Date of Service: April 09, 2024
Patient complains of severe left foot pain from her gout. Her right lower quadrant pain is mildly improved from admission. No fever, no vomiting. Continues to have watery diarrhea.
Objective Data
-
Labs:
Laboratory Results
04/09/24
07:57
WBC Pending
Hgb Pending
Hct Pending
Plt Count Pending
Sodium Pending
Potassium Pending
Chloride Pending
Carbon Dioxide Pending
BUN Pending
Creatinine Pending
Glucose Pending
Calcium Pending
Total Bilirubin Pending
AST Pending
ALT Pending
Alkaline Phosphatase Pending
Vital Signs:
Vital Signs
Temp Pulse Resp BP Pulse Ox
98.7 F 108 20 146/72 95
04/09/24 03:47 04/09/24 03:47 04/09/24 03:47 04/09/24 03:47 04/09/24 03:47
I&O
04/08/24 04/09/24 04/10/24
06:59 06:59 06:59
Intake Total 0 / 0 1820 / 1820
Output Total 400 / 400
Balance -400 / -400 1819
--- NOTE | 2024-04-09 08:04 | PN.CDI ---
CDI
- -
CDI:
Physician Documentation Request
Admit Date: 04/07/24 20:10
Dear Doctor Do,
Please review the following and provide your response in the progress notes.
Documentation states the patient was admitted with abdominal pain.
Clinical Indicators:
PN, 04/08
#Acute colitis
#Continue IV fluids, IV Zosyn, pain meds
Please provide additional specificity regarding the type of colitis:
Infectious - indicate known or suspected organism (c. difficile or other)
Non-infectious - indicate type such as toxic, allergic, dietetic, eosinophilic, etc.)
Other - please specify
Use of terms such as suspected, likely, concern for, or probable (associated with a specific diagnosis that is being evaluated, monitored, or treated as if it exists) are acceptable and can be coded in the inpatient setting, when documented at the
time of discharge.
Thank you,
Ivette Grant RN BSN CCDS
CDI Specialist
please contact via tiger text
Please use your independent medical judgment in providing your response.
[2024-04-09 08:11] LABS: Hemoglobin 9.2 g/dL (12.0-16.0); Mean Corp Hgb Conc. 34.1 g/dL (33.0-37.0); Mean Corpuscular Hgb 32.3 pg (27.0-31.0); Mean Corpuscular Volume 94.7 fL (81.0-99.0); Mean Platelet Volume 9.6 fL (7.4-10.4); Platelet Count 201 10^3/uL (130-400); Red Blood Cell Count 2.85 10^6/uL (4.20-5.40); White Blood Cell Count 7.7 10^3/uL (4.8-10.8)
[2024-04-09 08:48] LABS: AST (SGOT) 40 U/L (14-36); Albumin 3.5 g/dl (3.5-5.0); Alkaline Phosphatase 90 U/L (38-126); Blood Urea Nitrogen 5 mg/dl (7-17); Calcium 7.8 mg/dl (8.4-10.2); Carbon Dioxide 22 mmol/L (22-30); Chloride 106 mmol/L (98-107); Direct Bilirubin 0.2 mg/dl (0.0-0.4); Estimated Creatinine Clearance 47 ml/min; Glucose 117 mg/dl (70-99); Magnesium 1.1 mg/dl (1.6-2.3); Sodium 136 mmol/L (135-145); Total Bilirubin 1.4 mg/dl (0.2-1.3); Total Protein 5.9 g/dl (6.3-8.2); eGFR > 60.00
[2024-04-09] MEDS: FOLVITE 1 MG PO (08:58)
[2024-04-09] MEDS: NSS (PRESERVATIVE FREE) 10 ML IV ×2 (08:58→19:30)
[2024-04-09] MEDS: PROTONIX IV 40 MG IV ×2 (08:58→19:30)
[2024-04-09] MEDS: THIAMINE INJECTION 200 MG IV ×2 (08:59→19:29)
[2024-04-09] MEDS: OSCAL 500 + D 500 MG PO ×3 (10:11→21:14)
[2024-04-09] MEDS: DECADRON 10 MG IV (10:12)
[2024-04-09] MEDS: MAGNESIUM SULFATE 50 IV (10:12)
[2024-04-09 10:24] VITALS: BP 159/90
[2024-04-09 11:17] LABS: ALT (SGPT) 30 U/L (0-35)
[2024-04-09 11:27] LABS: Uric Acid 4.2 mg/dl (2.5-6.2)
[2024-04-09 14:52] VITALS: BP 146/91
[2024-04-09] MEDS: LOVENOX 40 MG SC (17:12)
[2024-04-09] MEDS: ROXICODONE 5 MG PO (21:14)
[2024-04-09 23:22] VITALS: BP 152/78
[2024-04-10] MEDS: ZOSYN 50 IV ×4 (01:49→19:37)
[2024-04-10 03:18] VITALS: BP 117/63
[2024-04-10] MEDS: ROXICODONE 10 MG PO ×4 (06:23→20:33)
[2024-04-10 08:02] VITALS: BP 153/90
[2024-04-10] MEDS: OSCAL 500 + D 500 MG PO ×3 (08:27→21:23)
--- NOTE | 2024-04-10 08:27 | W.PN.HOSP.TC ---
Today's Communication/Plan
-
See bold
Assessment / Plan
Assessment / Plan
HPI: 68yoF with a history of hypertension, anxiety, GERD, and IBS presenting via EMS for evaluation of abdominal pain and vomiting. Symptoms began last night. She reports generalized pain throughout her abdomen. She is also having nausea and had
several episodes of vomiting today. she had several episodes of diarrhea yesterday. She denies any fevers, chills, chest pain, sob. denied KHAN, dizzy or syncopal episode. denied dysuria or hematuria.
CT abdomen pelvis with Small sliding hiatal hernia.Mild fatty infiltration of liver. Few small stable hepatic cysts.No obstructive uropathy.Unremarkable appearance of the stomach. No evidence of bowel obstruction. Diverticulosis without acute
diverticulitis. Suggestion of mild wall thickening involving the descending colon through sigmoid colon. Possibly related to underdistention. The possibility of nonspecific colitis may be considered in the proper clinical setting.The appendix
appears relatively short. There is a suggestion of mild appendix wall thickening measuring up to 4 millimeters, though with enteric contrast material refluxing into the appendix lumen, and no adjacent soft tissue stranding to suggest acute
appendicitis.
#Acute colitis, unable to determine if infectious
Appreciate GI input, carafate and questran resumed
Continue IV fluids, IV Zosyn, pain meds, f/u stool studies
Trial of low residue
#Acute gout flare of left foot
S/p IV dexamethasone x 1, continue oral prednisone for 3 more days
Pain meds
#Hypokalemia
#Hypomagnesemia
Continue to replete as needed
#Lactic acidosis
Resolved with IV fluids
#Chronic normocytic anemia
Hemoglobin about her baseline
Continue to monitor
#Stage III CKD
Creatinine stable, continue to trend
#History of alcohol use
Patient states her last drink was 2 weeks ago
ER reports signs of withdrawal, and she received Ativan
Continue MSAS protocol
#Vitamin D def
#Hypocalcemia
Started Ca w/ vit D supp TID
#History of esophagitis/GERD
Continue PPI twice daily
DVT prophylaxis�subcu Lovenox
Full code
Total time spent to see the patient on the floor, examine the patient, review data and lab results, discuss treatment plan with patient, nursing staff around 50 minutes.
Physical Exam
General: Appears to not feel well, no acute distress
HEENT: Normocephalic, Atraumatic, EOMI, MMM
Respiratory: Clear to Auscultation bilaterally
Cardiac: Normal S1/S2, Regular Rate and Rhythm
GI: Soft, tender at the right lower quadrant, Nondistended, Normal Bowel Sounds
Extremities: No Clubbing, Cyanosis, or Edema
Neuro: Nonfocal/Grossly Intact
Psych: Calm, Cooperative
Derm: No Visible lesions
Anticipated Discharge: 24 - 48 hours
Subjective/Interval History
-
Date of Service: April 10, 2024
Still with diarrhea and abd pain. No fever, no vomiting. Left foot pain improved.
Objective Data
-
Labs:
Laboratory Results
04/10/24
08:05
WBC Pending
Hgb Pending
Hct Pending
Plt Count Pending
Sodium Pending
Potassium Pending
Chloride Pending
Carbon Dioxide Pending
BUN Pending
Creatinine Pending
Glucose Pending
Calcium Pending
Vital Signs:
Vital Signs
Temp Pulse Resp BP Pulse Ox
98.4 F 66 20 117/63 94
04/10/24 03:18 04/10/24 03:18 04/10/24 03:18 04/10/24 03:18 04/10/24 03:18
I&O
04/09/24 04/10/24 04/11/24
06:59 06:59 06:59
Intake Total 1819 520 / 520
Balance 1819 /
[2024-04-10] MEDS: PROTONIX IV 40 MG IV ×2 (08:28→19:35)
[2024-04-10] MEDS: NSS (PRESERVATIVE FREE) 10 ML IV ×2 (08:28→19:35)
[2024-04-10] MEDS: THIAMINE INJECTION 200 MG IV ×2 (08:28→19:38)
[2024-04-10] MEDS: DELTASONE 40 MG PO (08:28)
[2024-04-10] MEDS: FOLVITE 1 MG PO (08:28)
[2024-04-10] MEDS: DILAUDID 0.5 MG IV (08:48)
[2024-04-10 08:54] LABS: Hematocrit 24.2 % (37.0-47.0); Hemoglobin 8.2 g/dL (12.0-16.0); Mean Corp Hgb Conc. 33.9 g/dL (33.0-37.0); Mean Corpuscular Hgb 31.7 pg (27.0-31.0); Mean Corpuscular Volume 93.4 fL (81.0-99.0); Mean Platelet Volume 10.1 fL (7.4-10.4); Platelet Count 201 10^3/uL (130-400); Red Blood Cell Count 2.59 10^6/uL (4.20-5.40); Red Cell Dist. Width 17.6 % (11.5-14.5); White Blood Cell Count 9.2 10^3/uL (4.8-10.8)
--- NOTE | 2024-04-10 09:29 | CON.GI ---
Addendum entered and electronically signed by Ramin Warner MD 04/10/24 13:48:
I saw and examined the patient.
The SURVEY INSTRUMENT OPERATOR or PA's note was reviewed and I agree with the note.
Comment: 68yo female presents with nausea, diarrhea, abd cramping. Recently admitted for severe acidosis, GI bleeding concern for intestinal ischemia, C diff Ag positive, toxin negative. Has hx EtOH, severe esophagitis. She has not been taking
medications including PPI, cholestyramine which has helped with diarrhea in past. C diff 04/09 was again Ag positive, toxin negative. Reports nausea. Denies rectal bleeding. Colonoscopy in December multiple polyps removed, recommend repeat in 6
months due to poor prep. CT showed mild wall thickening descending/sigmoid colon possibly underdistention vs nonspecific colitis
REC:
Resume PPI and questran. Nausea and diarrhea could be due to stopping these meds
Hold on RX for C diff since toxin negative
Try low residue diet
Continue on zosyn for now. Consider stopping if sx improve
Original Note:
Consultation
-
Date/Time Consultation Requested: 04/10/24828
Date/Time Consultation Performed: 04/10/24 09
Requesting Provider: Dr. Ai Elizabeth
Performing Provider: Dr. Warner/NIDHI Child
Reason for Consultation: diarrhea
Medical History
Chief Complaint / HPI
Chief Complaint: abdominal pain
History of Present Illness:
68-year-old female with a past medical history significant for GERD, hiatal hernia, hypertension, alcohol abuse, accidental Tylenol OD managed with NAC, colitis, moderated severe esophagitis lower third esophagus with no bleeding 03/15/24, admission
to ICU end of February concerning of intestinal ischemia given severe acidosis, admission with suspected C. difficile infection (antigen positive toxin negative-> treated early February 2024),prior GI bleed secondary to peptic ulcer, IBS, suspected gout,
anxiety, multiple hospitalizations with last one with her being DC 03/31/24 and now returning 04/07/24. The patient states that this time she comes in after not drinking ETOH since prior to last admission, no Tylenol, no NSAIDs, in fact she states that
she did not take any of her medications. This includes Ativan that she would take twice a day at home prior and she was on withdrawal ppx here. She presents with nausea, diarrhea and abdominal cramping that is relieved with defecation and also lower
abdominal tenderness. She also complains of pain in her toe from gout. She states that she took no medications at home because she was scared after her accidental OD of Tylenol and she was told that she also could not take NSAIDs. In the past when
she was on cholestyramine her diarrhea would resolve. The patient states that she had multiple small episodes of diarrhea yesterday but none today. She denies any F, C, V, melena, hematochezia, dysphagia or odynophagia. She has not had any BMs
today. Although documentation states that she had a large liquid BM. The patient is tolerating a solid diet without any difficulty. She continues on Zosyn at this time. She was placed on steroids for her gout by IM. She continues on Protonix 40 mg
BID.
Past Medical History
Past Medical History: GERD (LA grade C/D esophagitis on EGD in 2022, questionable history of peptic ulcer disease with prior GI bleed), Psychiatric (Anxiety, depression) and Other (IBS, suspected gout, history of C. difficile antigen positive,
chronic anemia)
Past Surgical History: Appendectomy, Cholecystectomy and Gynecological (Hysterectomy, right upper extremity epicondylitis x 2)
Social History
Tobacco: Non-Smoker
Alcohol: Daily
Drug: None
Personal: Single
Living: With Roomate
Family History
Family History: Reviewed & Not Pertinent
Allergies / Home Medications
Allergy/AdvReac Type Severity Reaction Status Date / Time
aspirin Allergy Unknown Verified 04/07/24 13:52
gabapentin Allergy Unknown Verified 04/07/24 13:52
NSAIDS (Non-Steroidal Allergy Unknown Verified 04/07/24 13:52
Anti-Inflamma
[id number] Reductase Allergy Swelling Verified 04/07/24 13:52
Inhibitor
Sulfa (Sulfonamide Allergy Unknown Verified 04/07/24 13:52
Antibiotics)
�Medication �Instructions �Recorded
dicyclomine 10 mg capsule 10 mg PO BIDPRN PRN indigestion 03/31/24
#60 caps
lorazepam 0.5 mg tablet 0.5 mg PO HSPRN PRN anxiety/sleep 03/31/24
#7 tabs
pantoprazole 40 mg tablet,delayed 40 mg PO BID GERD #120 tabs 03/31/24
release
Review of Systems
-
All other systems: A 12 pt ROS was Negative except as stated above in HPI
Vital Signs
Temp Pulse Resp BP Pulse Ox
98.5 F 74 20 153/90 97
04/10/24 08:02 04/10/24 08:02 04/10/24 08:02 04/10/24 08:02 04/10/24 08:02
Physical Exam
Exam
General: No Apparent Distress
HEENT: Anicteric
Respiratory: Clear (anterior)
Cardiac: Regular Rhythm
GI: Soft, Non Distended, Normal Bowel Sounds and Tender (mild LLQ tenderness)
Skin: Warm and Dry
Neuro: AO x 3
Psych: Calm
Results
WBC 9.2 10^3/uL (4.8-10.8) 04/10/24 08:05
Hgb 8.2 g/dL (12.0-16.0) L 04/10/24 08:05
Hct 24.2 % (37.0-47.0) L 04/10/24 08:05
MCV 93.4 fL (81.0-99.0) 04/10/24 08:05
Plt Count 201 10^3/uL (130-400) 04/10/24 08:05
Absolute Neuts (auto) 5.6 10^3/uL (1.4-6.5) 04/07/24 14:10
Sodium 136 mmol/L (135-145) 04/09/24 07:57
Potassium 4.0 mmol/L (3.5-5.1) D 04/09/24 07:57
Chloride 106 mmol/L (98-107) 04/09/24 07:57
Carbon Dioxide 22 mmol/L (22-30) 04/09/24 07:57
BUN 5 mg/dl (7-17) L 04/09/24 07:57
Creatinine 1.0 mg/dL (0.6-1.0) 04/09/24 07:57
Calcium 7.8 mg/dl (8.4-10.2) L 04/09/24 07:57
Total Bilirubin 1.4 mg/dl (0.2-1.3) H 04/09/24 07:57
AST 40 U/L (14-36) H 04/09/24 07:57
ALT 30 U/L (0-35) 04/09/24 07:57
Alkaline Phosphatase 90 U/L (38-126) 04/09/24 07:57
Lipase 175 U/L (23-300) 04/07/24 14:10
Hepatitis C Antibody Reactive (Negative) 04/07/24 23:30
Diagnostic Image Results:
Prior GI Procedures:
EGD 03/15/24 Dr. Warner - Mildly severe reflux esophagitis with no bleeding.
- A small amount of food (residue) in the stomach.
- Normal examined duodenum.
- No specimens collected.
EGD 01/20/24 Dr Alaniz:
- No gross lesions in the entire esophagus.
- Z-line irregular, 35 cm from the incisors. Biopsied.
- Small hiatal hernia.
- Congestive gastropathy. Biopsied.
- Erythematous mucosa in the antrum. Biopsied.
- Normal examined duodenum.
EGD
06/11/23, Dr. Warner
�� � � � � � � � - LA Grade C reflux esophagitis with no bleeding.
�� � � � � � � � � � � - Normal stomach.
�� � � � � � � � � � � - Normal examined duodenum.
EGD
03/15/23, Dr. Rosen
� � � � � � � � - LA Grade D reflux esophagitis. Slight improvement
�� � � � � � � � � � � from previous exam.
�� � � � � � � � � � � - Medium-sized hiatal hernia.
�� � � � � � � � � � � - No gross lesions in the entire stomach.
�� � � � � � � � � � � - Normal duodenal bulb, first portion of the duodenum
�� � � � � � � � � � � and second portion of the duodenum.
EGD
12/17/22, Dr. Rosen� � � � �
� � � � � � � � - LA Grade D esophagitis. Circumferential superficial
�� � � � � � � � � � � ulcers in distal esophagus.
�� � � � � � � � � � � - Medium-sized hiatal hernia.
Colonoscopy 01/20/24: (diegoguti) - Preparation of the colon was poor.
- The examined portion of the ileum was normal.
- Two 3 to 14 mm polyps in the cecum, removed with a
cold snare and removed using injection-lift and a hot
snare. Resected and retrieved.
- One 7 mm polyp in the ascending colon, removed with
a hot snare. Resected and retrieved.
- One 7 mm polyp in the transverse colon, removed with
a hot snare. Resected and retrieved.
- Two 3 to 15 mm polyps in the distal transverse
colon, removed with a cold snare and removed using
injection-lift and a hot snare. Resected and retrieved.
- One 4 mm polyp in the descending colon, removed with
a cold snare. Resected and retrieved.
- Normal mucosa in the entire examined colon. Biopsied.
- Diverticulosis in the recto-sigmoid colon, in the
sigmoid colon and in the descending colon.
- Internal hemorrhoids. - Repeat colonoscopy in 6 months for surveillance and
poor prep.
Colonoscopy:� 5-10 years ago at [facility] per pt, unknown results
Assessment / Plan
-
68-year-old female with a past medical history significant for GERD, hiatal hernia, hypertension, alcohol abuse, accidental Tylenol OD managed with NAC, colitis, moderated severe esophagitis lower third esophagus with no bleeding 03/15/24, admission
to ICU end of February concerning of intestinal ischemia given severe acidosis, admission with suspected C. difficile infection (antigen positive toxin negative-> treated early February 2024),prior GI bleed secondary to peptic ulcer, IBS, suspected gout,
anxiety, multiple hospitalizations with last one with her being DC 03/31/24 and now returning 04/07/24. The patient states that this time she comes in after not drinking ETOH since prior to last admission, no Tylenol, no NSAIDs, in fact she states that
she did not take any of her medications. This includes Ativan that she would take twice a day at home prior and she was on withdrawal ppx here. She presents with nausea, diarrhea and abdominal cramping that is relieved with defecation and also lower
abdominal tenderness. WBC 9.2, Hgb 8.2, PLT 201, BUN 11, Creat 1.1, Mag 1.3, T Bili 1.4, D Bili 0.4, AST 40, ALT 30, Alk Phos 90.-Nausea/vomiting
Impression:
-Diarrhea-> negative C Diff, in the past has responded to cholestyramine. Possible colitis vs underdistention on CT, recent [place] in 12/2023. Needs repeat in June.
-Nausea-> improved
-Elevated LFTs
-History of alcohol abuse
-History of prior GI bleed secondary to peptic ulcer, recent EGD 03/15/24 - Mildly severe reflux esophagitis with no bleeding. A small amount of food (residue) in the stomach. Normal examined duodenum.
-History of chronically dilated common bile duct, status postcholecystectomy, MRCP in August 2023
Other pertinent medical history:
-Hypertension
-Hiatal hernia
-Anxiety/depression
-IBS
-Suspected gout
Plan:
-Continue pantoprazole 40 mg BID, watch for signs of bleeding especially with steroids added for gout.
-Can add Carafate as well for duration of steroids.
-Add cholestyramine. Trend stools.
-Continue thiamine, folic acid, lorazepam
-Low residue diet as tolerated
-Repeat LFTs in am
-Follow up colonoscopy in June as recommended.
-Further recommendations to be forthcoming.
-
-
Thank you for consultation and allowing me to participate in the patient's care. Please call the five piece expansion maker hand GI physician during the after hours with any questions or concerns.
[2024-04-10 09:56] LABS: Vitamin D, 25-OH*** 27.9 ng/mL (30-80)
--- NOTE | 2024-04-10 09:58 | CM ---
Patient seen bedside.
Continues with abdominal discomfort.
Declined BCARES and denied ETOH problem.
Plan: home when stable, lives with friends, sleeps on their sofa.
No needs anticipated.
[2024-04-10 10:05] LABS: Blood Urea Nitrogen 11 mg/dl (7-17); Carbon Dioxide 28 mmol/L (22-30); Chloride 106 mmol/L (98-107); Estimated Creatinine Clearance 43 ml/min; Glucose 88 mg/dl (70-99); Magnesium 1.3 mg/dl (1.6-2.3); Potassium 3.8 mmol/L (3.5-5.1); Sodium 139 mmol/L (135-145); eGFR 54.06
[2024-04-10] MEDS: QUESTRAN 4 GRAM PO ×2 (10:52→19:38)
[2024-04-10] MEDS: COMPAZINE 10 MG IV (10:52)
[2024-04-10] MEDS: CARAFATE SUSPENSION 1 GM PO ×3 (11:05→21:23)
[2024-04-10 11:15] VITALS: BP 148/80
[2024-04-10] MEDS: NSS with KCL 20 MEQ 1000 IV (11:43)
[2024-04-10 15:17] VITALS: BP 136/86
[2024-04-10] MEDS: MAGNESIUM SULFATE 50 IV (16:25)
[2024-04-10] MEDS: LOVENOX 40 MG SC (18:09)
[2024-04-10 19:30] VITALS: BP 142/77
[2024-04-10 23:11] VITALS: BP 142/72
[2024-04-11] MEDS: ROXICODONE 10 MG PO ×4 (00:26→15:04)
[2024-04-11] MEDS: NSS with KCL 20 MEQ 1000 IV (02:16)
[2024-04-11] MEDS: ZOSYN 50 IV ×2 (02:16→13:41)
[2024-04-11 03:12] VITALS: BP 147/83
[2024-04-11 07:42] VITALS: BP 176/97
--- NOTE | 2024-04-11 08:39 | W.PN.HOSP.TC ---
Today's Communication/Plan
-
see bold
Assessment / Plan
Assessment / Plan
HPI: 68yoF with a history of hypertension, anxiety, GERD, and IBS presenting via EMS for evaluation of abdominal pain and vomiting. Symptoms began last night. She reports generalized pain throughout her abdomen. She is also having nausea and had
several episodes of vomiting today. she had several episodes of diarrhea yesterday. She denies any fevers, chills, chest pain, sob. denied KHAN, dizzy or syncopal episode. denied dysuria or hematuria.
CT abdomen pelvis with Small sliding hiatal hernia.Mild fatty infiltration of liver. Few small stable hepatic cysts.No obstructive uropathy.Unremarkable appearance of the stomach. No evidence of bowel obstruction. Diverticulosis without acute
diverticulitis. Suggestion of mild wall thickening involving the descending colon through sigmoid colon. Possibly related to underdistention. The possibility of nonspecific colitis may be considered in the proper clinical setting.The appendix
appears relatively short. There is a suggestion of mild appendix wall thickening measuring up to 4 millimeters, though with enteric contrast material refluxing into the appendix lumen, and no adjacent soft tissue stranding to suggest acute
appendicitis.
#Acute colitis, unlikely to be infectious
Appreciate GI input, carafate and questran resumed
Stop IV zosyn, f/u stool studies
Tolerating low residue
#Acute gout flare of left foot
S/p IV dexamethasone x 1, continue oral prednisone for 3 more days (tomorrow is last day)
Pain meds
#Hypokalemia
#Hypomagnesemia
Continue to replete as needed
#Lactic acidosis
Resolved with IV fluids
#Chronic normocytic anemia
Hemoglobin about her baseline
Continue to monitor
#Stage III CKD
Creatinine stable, continue to trend
#History of alcohol use
Patient states her last drink was 2 weeks ago
ER reports signs of withdrawal, and she received Ativan
Continue MSAS protocol
#Vitamin D def
#Hypocalcemia
Started Ca w/ vit D supp TID
#History of esophagitis/GERD
Continue PPI twice daily
DVT prophylaxis�subcu Lovenox
Full code
Total time spent to see the patient on the floor, examine the patient, review data and lab results, discuss treatment plan with patient, nursing staff around 51 minutes.
Physical Exam
General: Appears to not feel well, no acute distress
HEENT: Normocephalic, Atraumatic, EOMI, MMM
Respiratory: Clear to Auscultation bilaterally
Cardiac: Normal S1/S2, Regular Rate and Rhythm
GI: Soft, tender at the right lower quadrant, Nondistended, Normal Bowel Sounds
Extremities: No Clubbing, Cyanosis, or Edema
Neuro: Nonfocal/Grossly Intact
Psych: Calm, Cooperative
Derm: No Visible lesions
Anticipated Discharge: Within 24 hours
Subjective/Interval History
-
Date of Service: April 11, 2024
Patient reports improvement in her abdominal pain, left foot pain, and diarrhea. No fever, no vomiting.
Objective Data
-
Labs:
Laboratory Results
04/11/24
06:00
WBC Pending
Hgb Pending
Hct Pending
Plt Count Pending
Sodium Pending
Potassium Pending
Chloride Pending
Carbon Dioxide Pending
BUN Pending
Creatinine Pending
Glucose Pending
Calcium Pending
Total Bilirubin Pending
AST Pending
ALT Pending
Alkaline Phosphatase Pending
Vital Signs:
Vital Signs
Temp Pulse Resp BP Pulse Ox
98.1 F 89 20 176/97 96
04/11/24 07:42 04/11/24 07:42 04/11/24 07:42 04/11/24 07:42 04/11/24 07:42
I&O
04/10/24 04/11/24 04/12/24
06:59 06:59 06:59
Intake Total 520 / 520 120 / 120
Balance 520 / 520 120 / 120
[2024-04-11] MEDS: DELTASONE 40 MG PO (08:42)
[2024-04-11] MEDS: PROTONIX IV 40 MG IV ×2 (08:42→20:03)
[2024-04-11] MEDS: QUESTRAN 4 GRAM PO ×2 (08:42→21:22)
[2024-04-11] MEDS: ZOSYN IV ×2 (08:42→09:30)
[2024-04-11] MEDS: FOLVITE 1 MG PO (08:42)
[2024-04-11] MEDS: NSS (PRESERVATIVE FREE) 10 ML IV ×2 (08:42→20:03)
[2024-04-11] MEDS: CARAFATE SUSPENSION 1 GM PO ×4 (08:42→21:22)
[2024-04-11] MEDS: VITAMIN B1 100 MG PO ×2 (08:42→20:09)
[2024-04-11] MEDS: OSCAL 500 + D 500 MG PO ×3 (08:43→21:22)
--- NOTE | 2024-04-11 10:44 | W.PN.GI.CBS2 ---
Today's Communication / Plan
-
Continue questran and PPI
Pt states she sleeps in office at home of woman, who takes her medications
Told her to keep medications secured at home, which she needs to manage her reflux esophagitis and post-cholecystectomy diarrhea
She also needs to f/u in GI office [facility]
Assessment / Plan
-
68-year-old female with a past medical history significant for GERD, hiatal hernia, hypertension, alcohol abuse, accidental Tylenol OD managed with NAC, colitis, moderated severe esophagitis lower third esophagus with no bleeding 03/15/24, admission
to ICU end of February concerning of intestinal ischemia given severe acidosis, admission with suspected C. difficile infection (antigen positive toxin negative-> treated early February 2024),prior GI bleed secondary to peptic ulcer, IBS, suspected gout,
anxiety, multiple hospitalizations with last one with her being DC 03/31/24 and now returning 04/07/24. The patient states that this time she comes in after not drinking ETOH since prior to last admission, no Tylenol, no NSAIDs, in fact she states that
she did not take any of her medications. This includes Ativan that she would take twice a day at home prior and she was on withdrawal ppx here. She presents with nausea, diarrhea and abdominal cramping that is relieved with defecation and also lower
abdominal tenderness. WBC 9.2, Hgb 8.2, PLT 201, BUN 11, Creat 1.1, Mag 1.3, T Bili 1.4, D Bili 0.4, AST 40, ALT 30, Alk Phos 90.-Nausea/vomiting
Impression:
-Diarrhea-> negative C Diff, in the past has responded to cholestyramine. Possible colitis vs underdistention on CT, recent [place] in 12/2023. Needs repeat in June.
-Nausea-> improved
-Elevated LFTs
-History of alcohol abuse
-History of prior GI bleed secondary to peptic ulcer, recent EGD 03/15/24 - Mildly severe reflux esophagitis with no bleeding. A small amount of food (residue) in the stomach. Normal examined duodenum.
-History of chronically dilated common bile duct, status postcholecystectomy, MRCP in August 2023
Other pertinent medical history:
-Hypertension
-Hiatal hernia
-Anxiety/depression
-IBS
-Suspected gout
Subjective
Subjective
Date of Service: April 11, 2024
Had diarrhea yesterday, but none today. C/O lower abd cramping
Objective
Data Reviewed
Laboratory Data:
Laboratory Results
Phosphorus 3.8 mg/dl (2.5-4.5) 04/08/24 07:57
Magnesium 1.3 mg/dl (1.6-2.3) L 04/10/24 08:05
Total Bilirubin 1.4 mg/dl (0.2-1.3) H 04/09/24 07:57
AST 40 U/L (14-36) H 04/09/24 07:57
ALT 30 U/L (0-35) 04/09/24 07:57
Alkaline Phosphatase 90 U/L (38-126) 04/09/24 07:57
Lipase 175 U/L (23-300) 04/07/24 14:10
Vital Signs and I&O:
Vital Signs
Temp Pulse Resp BP Pulse Ox
98.1 F 89 20 176/97 96
04/11/24 07:42 04/11/24 07:42 04/11/24 07:42 04/11/24 07:42 04/11/24 07:42
I&O
04/10/24 04/11/24 04/12/24
06:59 06:59 06:59
Intake Total 520 / 520 120 / 120
Balance 520 / 520 120 / 120
Physical Exam
Physical Exam
GI: Non Distended and Tender (mild lower)
[2024-04-11 10:57] LABS: % Basophils 0.5 % (0-2); % Immature Granulocytes 0.9 % (0-0.5); % Lymphocytes 20.3 % (20.5-51.1); % Monocytes 8.4 % (1.7-9.3); % Neutrophils 67.9 % (42.2-75.2); Absolute Eosinophils 0.2 10^3/uL (0-0.7); Absolute Immature Granulocytes 0.1 10^3/uL (0-0.05); Absolute Lymphocytes 1.8 10^3/uL (1.2-3.4); Absolute Monocytes 0.7 10^3/uL (0.1-0.6); Absolute Neutrophils 5.9 10^3/uL (1.4-6.5); Hematocrit 25.9 % (37.0-47.0); Hemoglobin 8.6 g/dL (12.0-16.0); Mean Corp Hgb Conc. 33.2 g/dL (33.0-37.0); Mean Corpuscular Hgb 31.3 pg (27.0-31.0); Mean Corpuscular Volume 94.2 fL (81.0-99.0); Mean Platelet Volume 9.8 fL (7.4-10.4); Nucleated Red Blood Cells % 0 %; Platelet Count 235 10^3/uL (130-400); Red Blood Cell Count 2.75 10^6/uL (4.20-5.40); Red Cell Dist. Width 18.4 % (11.5-14.5); White Blood Cell Count 8.7 10^3/uL (4.8-10.8)
[2024-04-11 11:02] LABS: ALT (SGPT) 18 U/L (0-35); AST (SGOT) 20 U/L (14-36); Albumin 3.6 g/dl (3.5-5.0); Alkaline Phosphatase 63 U/L (38-126); Blood Urea Nitrogen 8 mg/dl (7-17); Calcium 9.5 mg/dl (8.4-10.2); Carbon Dioxide 29 mmol/L (22-30); Chloride 104 mmol/L (98-107); Direct Bilirubin 0.1 mg/dl (0.0-0.4); Estimated Creatinine Clearance 43 ml/min; Glucose 91 mg/dl (70-99); Magnesium 1.3 mg/dl (1.6-2.3); Potassium 4.3 mmol/L (3.5-5.1); Sodium 139 mmol/L (135-145); Total Bilirubin 0.4 mg/dl (0.2-1.3); Total Protein 6.2 g/dl (6.3-8.2); eGFR 54.06
[2024-04-11] MEDS: MAGNESIUM SULFATE 50 IV ×2 (11:21→17:19)
[2024-04-11 11:36] VITALS: BP 159/97
[2024-04-11] MEDS: ATIVAN 0.5 MG PO ×2 (11:57→17:30)
[2024-04-11 15:32] VITALS: BP 140/83
[2024-04-11] MEDS: LOVENOX 40 MG SC (17:11)
[2024-04-11] MEDS: TYLENOL 1000 MG PO ×2 (17:30→21:22)
[2024-04-11 19:20] VITALS: BP 130/74
[2024-04-11] MEDS: ATIVAN 1 MG PO (20:02)
[2024-04-11 23:05] VITALS: BP 157/85
[2024-04-12] VITALS (7 sets, daily range): BP systolic 124–171; BP diastolic 58–104
[2024-04-12 08:19] LABS: Hematocrit 27.5 % (37.0-47.0); Hemoglobin 9.2 g/dL (12.0-16.0); Mean Corp Hgb Conc. 33.5 g/dL (33.0-37.0); Mean Corpuscular Hgb 31.5 pg (27.0-31.0); Mean Corpuscular Volume 94.2 fL (81.0-99.0); Mean Platelet Volume 9.8 fL (7.4-10.4); Platelet Count 268 10^3/uL (130-400); Red Blood Cell Count 2.92 10^6/uL (4.20-5.40); Red Cell Dist. Width 18.2 % (11.5-14.5); White Blood Cell Count 8.4 10^3/uL (4.8-10.8)
[2024-04-12] MEDS: ROXICODONE 10 MG PO ×4 (08:22→22:00)
[2024-04-12] MEDS: QUESTRAN 4 GRAM PO ×3 (08:22→21:49)
[2024-04-12] MEDS: DELTASONE 40 MG PO (08:22)
[2024-04-12] MEDS: CARAFATE SUSPENSION 1 GM PO ×4 (08:22→21:48)
[2024-04-12] MEDS: OSCAL 500 + D 500 MG PO ×3 (08:23→21:49)
[2024-04-12] MEDS: VITAMIN B1 100 MG PO ×2 (08:23→20:09)
[2024-04-12] MEDS: FOLVITE 1 MG PO (08:23)
[2024-04-12] MEDS: NSS (PRESERVATIVE FREE) 10 ML IV ×2 (08:23→20:09)
[2024-04-12] MEDS: PROTONIX IV 40 MG IV ×2 (08:23→20:09)
--- NOTE | 2024-04-12 08:23 | W.PN.HOSP.TC ---
Today's Communication/Plan
-
see bold
Assessment / Plan
Assessment / Plan
HPI: 68yoF with a history of hypertension, anxiety, GERD, and IBS presenting via EMS for evaluation of abdominal pain and vomiting. Symptoms began last night. She reports generalized pain throughout her abdomen. She is also having nausea and had
several episodes of vomiting today. she had several episodes of diarrhea yesterday. She denies any fevers, chills, chest pain, sob. denied KHAN, dizzy or syncopal episode. denied dysuria or hematuria.
#Acute on chronic abdominal pain
#Acute on chronic diarrhea
CT shows possible colitis versus underdistention
Patient has had 5 admissions for this in the last 2 months
C. difficile/Cryptosporidium/Giardia negative, stool cultures pending
Appreciate GI input, carafate and questran resumed
Patient is afebrile, there is no leukocytosis, discontinued Zosyn
Tolerating low residue
#Acute gout flare of left foot
S/p IV dexamethasone x 1, s/p oral prednisone x 3 days
Pain meds
#Hypokalemia
#Hypomagnesemia
Continue to replete as needed
#Lactic acidosis
Resolved with IV fluids
#Chronic normocytic anemia
Hemoglobin about her baseline
Continue to monitor
#Stage III CKD
Creatinine stable, continue to trend
#History of alcohol use
Patient states her last drink was 2 weeks ago
ER reports signs of withdrawal, and she received Ativan
Continue MSAS protocol
#Vitamin D def
#Hypocalcemia
Started Ca w/ vit D supp TID
#History of esophagitis/GERD
Continue PPI twice daily
DVT prophylaxis�subcu Lovenox
Full code
Total time spent to see the patient on the floor, examine the patient, review data and lab results, discuss treatment plan with patient, nursing staff around 50 minutes.
Physical Exam
General: Appears to not feel well, no acute distress
HEENT: Normocephalic, Atraumatic, EOMI, MMM
Respiratory: Clear to Auscultation bilaterally
Cardiac: Normal S1/S2, Regular Rate and Rhythm
GI: Soft, Distended, diffuse tenderness, Normal Bowel Sounds
Extremities: No Clubbing, Cyanosis, or Edema
Musculoskeletal: Erythema of left great toe and left MPT joint has resolved, nontender to palpation
Neuro: Nonfocal/Grossly Intact
Psych: Calm, Cooperative
Derm: No Visible lesions
Anticipated Discharge: Within 24 hours
Subjective/Interval History
-
Date of Service: April 12, 2024
Continues to have abdominal pain and diarrhea. She reports her abdominal pain is 9 out of 10 in intensity before medications. She had 5 watery bowel movements yesterday. Also complains of left foot pain, 9 out of 10 in intensity before pain meds.
Her pain is currently improved with medications. No fever, no vomiting.
Objective Data
-
Labs:
Laboratory Results
04/12/24
07:45
WBC 8.4
Hgb 9.2 L
Hct 27.5 L
Plt Count 268
Sodium Pending
Potassium Pending
Chloride Pending
Carbon Dioxide Pending
BUN Pending
Creatinine Pending
Glucose Pending
Calcium Pending
Vital Signs:
Vital Signs
Temp Pulse Resp BP Pulse Ox
98 F 105 20 144/104 97
04/12/24 07:00 04/12/24 07:00 04/12/24 07:00 04/12/24 07:00 04/12/24 07:00
I&O
04/11/24 04/12/24 04/13/24
06:59 06:59 06:59
Intake Total 120 / 120 840 / 840
Output Total 400 / 400
Balance 120 / 120 440 / 440
[2024-04-12] MEDS: COMPAZINE 10 MG IV ×2 (08:24→20:17)
[2024-04-12 08:30] LABS: Blood Urea Nitrogen 13 mg/dl (7-17); Calcium 10.1 mg/dl (8.4-10.2); Carbon Dioxide 27 mmol/L (22-30); Chloride 103 mmol/L (98-107); Estimated Creatinine Clearance 52 ml/min; Glucose 100 mg/dl (70-99); Magnesium 1.5 mg/dl (1.6-2.3); Potassium 3.7 mmol/L (3.5-5.1); Sodium 141 mmol/L (135-145); eGFR > 60.00
[2024-04-12] MEDS: MAGNESIUM SULFATE 50 IV (11:45)
[2024-04-12] MEDS: ANUSOL HC 25 MG RECTAL ×2 (11:45→21:49)
--- NOTE | 2024-04-12 14:04 | W.PN.GI.CBS2 ---
Today's Communication / Plan
-
Increase cholestyramine to TID
Changed bentyl from prn to BID standing dose- this may help with diarrhea and abd pain both
Seems to be slowly improving. Hopefully d/c soon
Assessment / Plan
-
68-year-old female with a past medical history significant for GERD, hiatal hernia, hypertension, alcohol abuse, accidental Tylenol OD managed with NAC, colitis, moderated severe esophagitis lower third esophagus with no bleeding 03/15/24, admission
to ICU end of February concerning of intestinal ischemia given severe acidosis, admission with suspected C. difficile infection (antigen positive toxin negative-> treated early February 2024),prior GI bleed secondary to peptic ulcer, IBS, suspected gout,
anxiety, multiple hospitalizations with last one with her being DC 03/31/24 and now returning 04/07/24. The patient states that this time she comes in after not drinking ETOH since prior to last admission, no Tylenol, no NSAIDs, in fact she states that
she did not take any of her medications. This includes Ativan that she would take twice a day at home prior and she was on withdrawal ppx here. She presents with nausea, diarrhea and abdominal cramping that is relieved with defecation and also lower
abdominal tenderness. WBC 9.2, Hgb 8.2, PLT 201, BUN 11, Creat 1.1, Mag 1.3, T Bili 1.4, D Bili 0.4, AST 40, ALT 30, Alk Phos 90.-Nausea/vomiting
Impression:
-Diarrhea-> negative C Diff, in the past has responded to cholestyramine. Possible colitis vs underdistention on CT, recent [place] in 12/2023. Needs repeat in June.
-Nausea-> improved
-Elevated LFTs
-History of alcohol abuse
-History of prior GI bleed secondary to peptic ulcer, recent EGD 03/15/24 - Mildly severe reflux esophagitis with no bleeding. A small amount of food (residue) in the stomach. Normal examined duodenum.
-History of chronically dilated common bile duct, status postcholecystectomy, MRCP in August 2023
Other pertinent medical history:
-Hypertension
-Hiatal hernia
-Anxiety/depression
-IBS
-Suspected gout
Subjective
Subjective
Date of Service: April 12, 2024
Still complains of diarrhea when she wipes. Also reports lower abd pain
Objective
Data Reviewed
Laboratory Data:
Laboratory Results
04/12/24 07:45
04/12/24 07:45
Laboratory Results
Phosphorus 3.8 mg/dl (2.5-4.5) 04/08/24 07:57
Magnesium 1.5 mg/dl (1.6-2.3) L 04/12/24 07:45
Total Bilirubin 0.4 mg/dl (0.2-1.3) D 04/11/24 10:18
AST 20 U/L (14-36) 04/11/24 10:18
ALT 18 U/L (0-35) 04/11/24 10:18
Alkaline Phosphatase 63 U/L (38-126) 04/11/24 10:18
Lipase 175 U/L (23-300) 04/07/24 14:10
Vital Signs and I&O:
Vital Signs
Temp Pulse Resp BP Pulse Ox
97.6 F 80 18 149/79 96
04/12/24 11:12 04/12/24 11:12 04/12/24 11:12 04/12/24 11:12 04/12/24 11:12
I&O
04/11/24 04/12/24 04/13/24
06:59 06:59 06:59
Intake Total 120 / 120 840 / 840
Output Total 400 / 400
Balance 120 / 120 440 / 440
Physical Exam
Physical Exam
GI: Soft, Non Distended and Tender
[2024-04-12] MEDS: LOVENOX 40 MG SC (18:36)
[2024-04-12] MEDS: BENTYL 10 MG PO (20:09)
[2024-04-12] MEDS: DILAUDID 0.5 MG IV (20:19)
[2024-04-13] VITALS (7 sets, daily range): BP systolic 146–172; BP diastolic 87–96; PULSE 96; O2SAT 100
[2024-04-13] MEDS: ATIVAN 0.5 MG PO (00:14)
[2024-04-13] MEDS: COMPAZINE 10 MG IV (02:55)
[2024-04-13 05:32] LABS: Blood Urea Nitrogen 18 mg/dl (7-17); Calcium 9.8 mg/dl (8.4-10.2); Carbon Dioxide 28 mmol/L (22-30); Chloride 102 mmol/L (98-107); Estimated Creatinine Clearance 47 ml/min; Glucose 110 mg/dl (70-99); Magnesium 1.4 mg/dl (1.6-2.3); Phosphorus 3.8 mg/dl (2.5-4.5); Potassium 3.4 mmol/L (3.5-5.1); Sodium 137 mmol/L (135-145); eGFR > 60.00
[2024-04-13] MEDS: QUESTRAN 4 GRAM PO ×2 (06:20→13:41)
[2024-04-13] MEDS: BENTYL 10 MG PO (08:20)
[2024-04-13] MEDS: FOLVITE 1 MG PO (08:20)
[2024-04-13] MEDS: OSCAL 500 + D 500 MG PO (08:20)
[2024-04-13] MEDS: CARAFATE SUSPENSION 1 GM PO ×2 (08:20→12:11)
[2024-04-13] MEDS: NSS (PRESERVATIVE FREE) 10 ML IV (08:21)
[2024-04-13] MEDS: PROTONIX IV 40 MG IV (08:21)
[2024-04-13] MEDS: VITAMIN B1 100 MG PO (08:21)
--- NOTE | 2024-04-13 09:11 | W.PN.HOSP.TC ---
Today's Communication/Plan
-
Replete electrolytes
Discharge
Assessment / Plan
Assessment / Plan
Gen-AAOx3, NAD
HEENT-NC, AT, anicteric, clear oral mm
Neck-supple
CV-reg, no M, +S1/S2
Lungs-clear B/L
Abd-soft, NT, ND
Ext-no edema
Musculoskeletal-no cyanosis, clubbing
Skin-warm and dry
Neuro-grossly non-focal
Psych-calm, cooperative
HPI: 68yoF with a history of hypertension, anxiety, GERD, and IBS presenting via EMS for evaluation of abdominal pain and vomiting. Symptoms began last night. She reports generalized pain throughout her abdomen. She is also having nausea and had
several episodes of vomiting today. she had several episodes of diarrhea yesterday. She denies any fevers, chills, chest pain, sob. denied KHAN, dizzy or syncopal episode. denied dysuria or hematuria.
#Acute on chronic abdominal pain
#Acute on chronic diarrhea
CT shows possible colitis versus underdistention
Patient has had 5 admissions for this in the last 2 months
C. difficile/Cryptosporidium/Giardia negative, stool cultures pending
Appreciate GI input, carafate and questran resumed. Overall symptoms improved but have not completely resolved. Minimize use of opiates. Discussed with patient.
#Acute gout flare of left foot
S/p IV dexamethasone x 1, s/p oral prednisone x 3 days
Pain meds
#Hypokalemia
#Hypomagnesemia
Continue to replete as needed
#Lactic acidosis
Resolved with IV fluids
#Chronic normocytic anemia
Hemoglobin about her baseline
Continue to monitor
#Stage III CKD
Creatinine stable, continue to trend
#History of alcohol use
Patient states her last drink was 2 weeks ago
ER reports signs of withdrawal, and she received Ativan
Continue MSAS protocol
#Vitamin D def
#Hypocalcemia
Started Ca w/ vit D supp TID
#History of esophagitis/GERD
Continue PPI twice daily
DVT prophylaxis�subcu Lovenox
Full code
Dispo -discharge today. Outpatient follow-up.
35 minutes spent in discharge process.
Anticipated Discharge: Today
Subjective/Interval History
-
Date of Service: April 13, 2024
Patient seen and examined. Complaining of right-sided abdominal pain but improved compared to admission. Tolerating diet.
Objective Data
-
Labs:
Laboratory Results
04/13/24
04:29
Sodium 137
Potassium 3.4 L
Chloride 102
Carbon Dioxide 28
BUN 18 H
Creatinine 1.0
Glucose 110 H
Calcium 9.8
Vital Signs:
Vital Signs
Temp Pulse Resp BP Pulse Ox
98.2 F 78 18 172/87 97
04/13/24 07:45 04/13/24 07:45 04/13/24 07:45 04/13/24 07:45 04/13/24 07:45
I&O
04/12/24 04/13/24 04/14/24
06:59 06:59 06:59
Intake Total 840 / 840 1839
Output Total 400 / 400
Balance 440 / 440 1839
Review of Systems
-
History Source: Patient
All other systems: Reviewed and negative
[2024-04-13] MEDS: KCL 40 MEQ PO (09:33)
[2024-04-13] MEDS: MAGNESIUM SULFATE 100 IV (09:34)
--- NOTE | 2024-04-13 10:02 | W.PN.GI.CBS2 ---
Addendum entered and electronically signed by Ramin Warner MD 04/13/24 15:53:
I saw and examined the patient.
The SMALL ORDER CUTTER or PA's note was reviewed and I agree with the note.
Comment: Feeling better today, no diarrhea
ABD soft NT
REC:
OK for d/c
Cont questran and PPI as outpt- stressed need to take her OP meds
F/U in the office
Original Note:
Today's Communication / Plan
-
Continue present meds
Follow up in June for repeat Colonoscopy
Medication compliance
Continued ETOH cessation
Assessment / Plan
-
68-year-old female with a past medical history significant for GERD, hiatal hernia, hypertension, alcohol abuse, accidental Tylenol OD managed with NAC, colitis, moderated severe esophagitis lower third esophagus with no bleeding 03/15/24, admission
to ICU end of February concerning of intestinal ischemia given severe acidosis, admission with suspected C. difficile infection (antigen positive toxin negative-> treated early February 2024),prior GI bleed secondary to peptic ulcer, IBS, suspected gout,
anxiety, multiple hospitalizations with last one with her being DC 03/31/24 and now returning 04/07/24. The patient states that this time she comes in after not drinking ETOH since prior to last admission, no Tylenol, no NSAIDs, in fact she states that
she did not take any of her medications. This includes Ativan that she would take twice a day at home prior and she was on withdrawal ppx here. She presents with nausea, diarrhea and abdominal cramping that is relieved with defecation and also lower
abdominal tenderness. WBC 9.2, Hgb 8.2, PLT 201, BUN 11, Creat 1.1, Mag 1.3, T Bili 1.4, D Bili 0.4, AST 40, ALT 30, Alk Phos 90.
Impression:
-Diarrhea-> negative C Diff, in the past has responded to cholestyramine. Possible colitis vs underdistention on CT, recent [place] in 12/2023. Needs repeat in June.
-Nausea-> improved.
-Elevated LFTs
-History of alcohol abuse-> continue cessation
-History of prior GI bleed secondary to peptic ulcer, recent EGD 03/15/24 - Mildly severe reflux esophagitis with no bleeding. A small amount of food (residue) in the stomach. Normal examined duodenum.-> Continue Pantoprazole
-Abdominal discomfort-> Continue Bentyl prn
-History of chronically dilated common bile duct, status postcholecystectomy, MRCP in August 2023
Other pertinent medical history:
-Hypertension
-Hiatal hernia
-Anxiety/depression
-IBS
-Suspected gout
Subjective
Subjective
Date of Service: April 13, 2024
Patient with mild nausea, however eating very well. Omelet and whitten. Some mild epigastric discomfort but much improved. No BM or diarrhea. Discussed with patient medication compliance as well as continued ETOH cessation.
Objective
Data Reviewed
Laboratory Data:
Laboratory Results
04/12/24 07:45
04/13/24 04:29
Laboratory Results
Phosphorus 3.8 mg/dl (2.5-4.5) 04/13/24 04:29
Magnesium 1.4 mg/dl (1.6-2.3) L 04/13/24 04:29
Total Bilirubin 0.4 mg/dl (0.2-1.3) D 04/11/24 10:18
AST 20 U/L (14-36) 04/11/24 10:18
ALT 18 U/L (0-35) 04/11/24 10:18
Alkaline Phosphatase 63 U/L (38-126) 04/11/24 10:18
Lipase 175 U/L (23-300) 04/07/24 14:10
Vital Signs and I&O:
Vital Signs
Temp Pulse Resp BP Pulse Ox
98.2 F 78 18 172/87 97
04/13/24 07:45 04/13/24 07:45 04/13/24 07:45 04/13/24 07:45 04/13/24 08:00
I&O
04/12/24 04/13/24 04/14/24
06:59 06:59 06:59
Intake Total 840 / 840 1839
Output Total 400 / 400
Balance 440 / 440 1839
Physical Exam
Physical Exam
HEENT: Anicteric
Cardiology: Normal Sinus Rhythm
Pulmonary: Clear (anterior)
GI: Soft, Non Distended, Non Tender and Normal Bowel Sounds
Extremities: No Edema
Neuro: Non Focal
[2024-04-13] MEDS: ROXICODONE 10 MG PO (10:57)
--- NOTE | 2024-04-13 11:43 | CM ---
CM reviewed chart. CM introduced self and role. Patient sitting at bedside, eating her lunch. She denied any concerns or questions or needs.
DISCHARGE DISPOSITION:
Discharge to home with friends. Patient stated she will use an Uber to transport her home. No needs at this time.
--- NOTE | 2024-04-13 13:36 | W.DS.TRANS ---
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
-
Discharge Instructions:
Discharge Diagnosis/Procedures Acute on chronic abdominal pain, acute on
chronic diarrhea, nausea, hiatal hernia,
probable gout of the left foot
Diet Low Residue
Activity As tolerated
Driving Restrictions As prior to admission
Bathing Restrictions None
Instructions:
Stand-Alone Forms:
Changes to Home Medications: No
Discharge Medications:
DC Medications w/original date entered in [employer]
lorazepam 0.5 mg tablet 0.5 mg PO HSPRN PRN anxiety/sleep #7 tabs 03/31/24
pantoprazole 40 mg tablet,delayed release 40 mg PO BID GERD #120 tabs 03/31/24
cholestyramine (with sugar) 4 gram powder for susp in a packet 1 ea PO Q8H #60 ea 04/13/24
dicyclomine 10 mg capsule 10 mg PO BID #60 caps 04/13/24
folic acid 1 mg tablet 1 mg PO DAILY #30 tabs 04/13/24
hydrocortisone acetate 25 mg rectal suppository 25 mg MA HS #12 ea 04/13/24
magnesium oxide 500 mg capsule 500 mg PO BID #60 caps 04/13/24
potassium chloride 20 mEq tablet,extended release 20 meq PO DAILY #30 tabs 04/13/24
sucralfate 100 mg/mL oral suspension 1 g (10 mL) PO ACHS #414 mL 04/13/24
thiamine HCl (vitamin B1) 100 mg tablet 100 mg PO BID #60 tabs 04/13/24
Home Medication Changes
Pending Results: No
== END 2024-04-13 16:40 | disposition home or self-care (01) | DRG 392 ==
LOC: 4 WEST ACU 20:10
PROVIDERS: Emergency Medicine; Family Medicine; Physician Assistant; Registered Nurse; ADMITTING PHYSICIAN Student in an Organized Health Care Education/Training Program; ATTENDING PHYSICIAN Hospitalist; CONSULT PHYSICIAN Specialist; EMERGENCY PHYSICIAN Student in an Organized Health Care Education/Training Program; FAMILY PHYSICIAN Family Medicine
DX: K58.0 Irritable bowel syndrome with diarrhea (principal); F13.930 Sedative, hypnotic or anxiolytic use, unspecified with withdrawal, uncomplicated; E87.20 Acidosis, unspecified; F10.130 Alcohol abuse with withdrawal, uncomplicated; F41.9 Anxiety disorder, unspecified; K21.00 Gastro-esophageal reflux disease with esophagitis, without bleeding; K70.10 Alcoholic hepatitis without ascites; E87.6 Hypokalemia; I12.9 Hypertensive chronic kidney disease with stage 1 through stage 4 chronic kidney disease, or unspecified chronic kidney disease; N18.30 Chronic kidney disease, stage 3 unspecified; R74.01 Elevation of levels of liver transaminase levels; E55.9 Vitamin D deficiency, unspecified; M10.072 Idiopathic gout, left ankle and foot; D63.1 Anemia in chronic kidney disease; T46.6X6A Underdosing of antihyperlipidemic and antiarteriosclerotic drugs, initial encounter; T47.0X6A Underdosing of histamine H2-receptor blockers, initial encounter; E86.0 Dehydration; E83.42 Hypomagnesemia; F32.A Depression, unspecified; Z87.891 Personal history of nicotine dependence; Z87.11 Personal history of peptic ulcer disease; Z79.899 Other long term (current) drug therapy; Z88.8 Allergy status to other drugs, medicaments and biological substances
CPT/HCPCS: 74177; 80048; 80053; 80306; 80307; 81003; 82077; 82248; 82306; 82805; 83605; 83690; 83735; 84100; 84484; 84550; 85025; 85027; 86803; 87045; 87046; 87324; 87328; 87329; 87427; 87449; 93005; 96361; 96374; 96375; 97116; 97162; 97530; 99285; Q9967

== ENCOUNTER 2024-04-25 18:02 | Inpatient (IN) | payer MEDICARE, SELFPAY ==
[2024-04-25] VITALS (9 sets, daily range): BP systolic 104–153; BP diastolic 63–98
--- NOTE | 2024-04-25 14:05 | ED.GENMED ---
History of Present Illness
General
Chief Complaint: Abdominal Symptoms
Source: patient
Exam Limitations: none
Time Seen by Provider: 04/25/24 13:56
History of Present Illness
History of Present Illness:
68-year-old female presents with abdominal pain. Mostly upper to mid abdominal pain associate with nausea and vomiting. Started this morning. Patient discharged last week for the same. History of chronic recurring abdominal pain. She states
this usually happens at home and she does not always come to the hospital for this. Last bowel movement yesterday. Some diarrhea with this. No blood or mucus. No fever or chest pain
Past History
Past History
ED Past Medical History: Cancer (Skin Cancer face), GERD, HTN, Psychiatric (Anxiety), Other (GI bleeding, Hiatal hernia. Ulcers, anemia. Migraine headaches, Colitis) and Other (recent colitis November/December 2023, severe esophagitis, alcohol abuse,
benzodiazepine withdrawal)
ED Past Surgical History: Appendectomy, Cholecystectomy, Gynecological (hysterectomy,), Orthopedic and Other (Mohs skin surgery, RUE epicondylitis X 2)
Patient has exhibited threatening behavior?: No
PSI?: No
Social History
Tobacco: Former smoker
Alcohol: Binge drinker
Drug: None and Other (History of benzodiazepine abuse)
Personal:
Living: alone
Family History
Family History: Other (Noncontributory)
Review of Systems
Review of Systems
All Other Systems: Not applicable
Constitutional: Denies fever or chills
Respiratory: Reports no symptoms
Cardiac: Reports no symptoms
Phy Exam
Physical Exam
Physical Exam:
GENERAL: Alert and oriented in no apparent distress. Chronically ill-appearing. Mildly pale
EYE: Orbits normal.
NECK: Supple, no thyroid palpable
ENT: Pharynx without erythema
CARDIAC: Regular rate and rhythm without any obvious murmurs.
LUNGS: Clear breath sounds,normal
ABDOMEN: Soft, bowel sounds present. Mild epigastric. Mild mid abdominal tenderness
NEUROLOGICAL: Alert and oriented , grossly non-focal
SKIN: Warm and dry, no rash or lesion, no discoloration, skin intact.
MUSCULOSKELETAL: No edema,no deformity.Good color
PSYCH: Normal and appropriate interaction.
Course
Orders/Labs/Results
Orders:
Orders
04/25/24 13:38
Electrocardiogram (*1) Urgent
Reason for Study: Chest Pain
EKG- Treatment ONCE
04/25/24 14:10
CR Obstruct Series W/pa Chest Urgent
Comment:
Reason For Exam: Abdominal pain/vomiting
04/25/24 14:14
Alcohol Urgent
Complete Blood Count/With Diff Urgent
Comprehensive Metabolic Panel Urgent
Lactic Acid Urgent
Lipase Urgent
Troponin I Urgent
04/25/24 17:29
Venous Blood Gas Stat
%Oxygen/Room Air: room ai
04/25/24 17:48
Admit/Transfer Patient As Directed
Co-Sign Provider:
Level of Care: Inpatient admission
Assign to:: Telemetry
Physician / Group: aparna trevino
Diagnosis: high anion gap metabolic acidosis
Reason for Telemetry: Chest Pain syndromes
Date to Stop Telemetry: 04/27/24
Time to Stop Telemetry: 11:00
Reason for Hospitalization: nausea vomitnig
hAGMA
Expected length of stay greater than two midnights?: No
ELOS- Estimated Length of Stay in days: 2
I certify the patient meets the requirements for IP care: Yes
PRN Pain Medication Management As Directed
May give lesser potent ordered pain med per pt: Yes
preference::
Protocol:: Medication orders for pain may be administered in a
manner that supports deferring to patient preference
when the pt is:
- Requesting an ordered lesser potent pain medication.
Least to most potent pain medications are defined
as: acetaminophen < NSAID < tramadol < opioids
(morphine, oxycodone, hydromorphone).
- Requesting a lesser dose of the same medication IF
ORDERED.
- Requesting a less intrusive route of administration
if both routes are prescribed by the provider (PO <
IV).
DX Deep Vein Thrombosis Video Routine
04/25/24 17:52
Code Status As Directed
Resuscitation Status: Full Code
Bisacodyl [Dulcolax] 10 mg RECTAL [id number] PRN
Docusate W/Senna [Senokot-S] 1 tablet PO BIDPRN PRN
Polyethylene Glycol Powder [Miralax] 17 grams PO DAILYPRN PRN
Activity As Directed
Activity Level: As Tolerated
Vital Signs As Directed
Frequency: Per unit guidelines
04/25/24 17:55
Urine Creatinine Urgent
Urine Osmolality Random [Osmolality, Random Urine] Urgent
Urine Sodium Urgent
04/25/24 17:56
Alcohol Urgent
Tylenol [Acetaminophen] Urgent
04/25/24 17:57
GASTROINTESTINAL CONSULT Routine
Consulting Provider: Nya Prince
Was physician already notified: Yes
Reason for consult: recurrent abd pain with nv
04/25/24 18:00
Lactated Ringers [Lr] 1,000 ml IV 100 mls/hr
04/25/24 18:48
Lorazepam [Ativan] 0.5 mg PO HSPRN PRN
04/25/24 19:00
Flush (0.9% Sodium Chloride) [Flush (Nss)] See Dose Instructions IV PER PROTOCOL
04/25/24 20:00
Dicyclomine [Bentyl] 10 mg PO BID
Magnesium Oxide 500 mg PO BID
Pantoprazole [Protonix] 40 mg PO BID
Thiamine HCl [Vitamin B1] 100 mg PO BID
04/25/24 22:00
Anusol Hc Suppository [Anusol Hc] 25 mg RECTAL HS
Sucralfate Suspension [Carafate Suspension] 1 gm PO ACHS
04/26/24 00:00
Cholestyramine [Questran] 4 gram PO Q8
Heparin 5,000 units SC Q8
04/26/24 Breakfast
Clear Liquid
At Your Request: Full Participation
Does patient need a safe tray?: No
04/26/24 08:00
FOLic ACID [Folvite] 1 mg PO DAILY
04/27/24 11:00
DC Protocol for Telemetry ONCE
Abnormal Lab Results
04/25/24 04/25/24
14:14 17:29
WBC 12.9 H 10^3/uL
(4.8-10.8)
RBC 2.86 L 10^6/uL
(4.20-5.40)
Hgb 9.1 L g/dL
(12.0-16.0)
Hct 26.7 L %
(37.0-47.0)
MCH 31.8 H pg
(27.0-31.0)
RDW 17.2 H %
(11.5-14.5)
Abs Immat Gran (auto) 0.1 H 10^3/uL
(0-0.05)
Absolute Neuts (auto) 11.2 H 10^3/uL
(1.4-6.5)
Absolute Lymphs (auto) 1.0 L 10^3/uL
(1.2-3.4)
Immature Gran % 0.8 H %
(0-0.5)
Neutrophils % 87.1 H %
(42.2-75.2)
Lymphocytes % 7.4 L %
(20.5-51.1)
VBG pCO2 27 L mmHg
(35-48)
VBG pO2 159 H mmHg
(30-50)
VBG HCO3 16.7 L mmol/L
(22-27)
Sodium 131 L mmol/L
(135-145)
Chloride 91 L mmol/L
(98-107)
Carbon Dioxide 10 L* mmol/L
(22-30)
Creatinine 1.1 H mg/dL
(0.6-1.0)
Glucose 108 H mg/dl
(70-99)
Lactic Acid 2.6 H mmol/L
(0.7-2.0)
Calcium 8.3 L mg/dl
(8.4-10.2)
AST 52 H U/L
(14-36)
04/25/24 14:14
04/25/24 14:14
Vital Signs
Initial and Last Documented VS:
Initial Vital Signs
BP
140/76
04/25/24 13:35
Last Documented Vital Signs
Temp Pulse Resp BP Pulse Ox
98.7 F 99 22 153/84 100
04/25/24 19:03 04/25/24 19:03 04/25/24 19:03 04/25/24 19:03 04/25/24 19:03
MDM/Problems Addressed
Differential Diagnosis Includes:
Patient with recurring upper to mid abdominal pain. This has been an issue for years. She has had 11 CAT scans of her abdomen and in the pelvis this year.
*Radiology
Radiology exam reviewed: preliminary read by ED provider (No acute findings)
*Pulse Oximetry
Patient hypoxic: no
*EKG
Interpreted by ED Provider?: Yes
Interpretation: abnormal
Comparison EKG: changes noted
Heart Rate: 101
Rate: tachycardiac
[place]: normal axis
Interval: normal interval
QRS Pattern: normal QRS
Ischemia: non-specific ST changes
*Metal Container Maker Interpretation
Rate: tachycardiac
Interpretation: abnormal
Heart Rate: 102
*Critical Care Note
Total Time (30-74mins, 75-104mins- exclusive of procedures): Not Applicable
Data Reviewed
Review of Other/Old Records Reveals: Labs, Records, Radiology Studies, Testing and Discharge Summary
Update Note
Update Note:
Patient with a nonsurgical abdomen clinically. Recurring abdominal pain. Recurrent acidosis. Has had CT angiography in this same scenario which is negative. Patient has had 11 CTs done this year. At this time we will hold on CT and refer for
further evaluation
ED Attending Note
-
Portions of this chart may have been created with voice recognition software.� Occasional wrong word or��sound alike� substitutions may have occurred due to the inherent limitations of voice recognition software.
Discharge Plan
Departure
Patient Disposition: Admit
Date of Disposition: 04/25/24
Time of Disposition: 15:47
Presentation/result/management discussed w/ accepting MD/DO: Hospitalist
Discharge Problem:
Recurring abdominal pain, Metabolic acidosis
Interventions
Interventions:
*Risk Screen - Suicide Last Done: 04/25/24 13:34
*General Assessment Last Done: 04/25/24 13:34
*Neglect/Abuse Screening Last Done: 04/25/24 13:34
ED- Fall Risk Assessment Last Done: 04/25/24 18:08
*ED COVID-19 Vaccine History Last Done: 04/25/24 13:34
*Nursing Disposition Last Done: 04/25/24 18:08
JR-Ixfchp-Fvuvuojytz Assessment Last Done: 04/25/24 13:37
Discharge Date and Time
Discharge Date/Time: 04/25/24 18:42
[2024-04-25 14:24] LABS: % Basophils 0.6 % (0-2); % Immature Granulocytes 0.8 % (0-0.5); % Lymphocytes 7.4 % (20.5-51.1); % Monocytes 4.1 % (1.7-9.3); % Neutrophils 87.1 % (42.2-75.2); Absolute Basophils 0.1 10^3/uL (0-0.2); Absolute Immature Granulocytes 0.1 10^3/uL (0-0.05); Absolute Monocytes 0.5 10^3/uL (0.1-0.6); Absolute Neutrophils 11.2 10^3/uL (1.4-6.5); Hematocrit 26.7 % (37.0-47.0); Hemoglobin 9.1 g/dL (12.0-16.0); Mean Corp Hgb Conc. 34.1 g/dL (33.0-37.0); Mean Corpuscular Hgb 31.8 pg (27.0-31.0); Mean Corpuscular Volume 93.4 fL (81.0-99.0); Mean Platelet Volume 9.1 fL (7.4-10.4); Nucleated Red Blood Cells % 0.2 %; Platelet Count 282 10^3/uL (130-400); Red Blood Cell Count 2.86 10^6/uL (4.20-5.40); Red Cell Dist. Width 17.2 % (11.5-14.5); White Blood Cell Count 12.9 10^3/uL (4.8-10.8)
[2024-04-25 14:31] LABS: Lactic Acid 2.6 mmol/L (0.7-2.0)
[2024-04-25 14:34] LABS: ALT (SGPT) 22 U/L (0-35); AST (SGOT) 52 U/L (14-36); Albumin 4.6 g/dl (3.5-5.0); Alcohol < 10 mg/dl; Alkaline Phosphatase 105 U/L (38-126); Blood Urea Nitrogen 11 mg/dl (7-17); Calcium 8.3 mg/dl (8.4-10.2); Carbon Dioxide 10 mmol/L (22-30); Chloride 91 mmol/L (98-107); Glucose 108 mg/dl (70-99); Lipase 65 U/L (23-300); Potassium 4.1 mmol/L (3.5-5.1); Sodium 131 mmol/L (135-145); Total Bilirubin 1.3 mg/dl (0.2-1.3); Total Protein 6.7 g/dl (6.3-8.2); eGFR 54.06
[2024-04-25 14:44] LABS: Troponin I < 0.012 ng/ml
[2024-04-25 17:42] LABS: Venous Blood Gas HCO3 16.7 mmol/L (22-27); Venous Blood Gas O2 Sat % 99.7 %; Venous Blood Gas pCO2 27 mmHg (35-48); Venous Blood Gas pO2 159 mmHg (30-50)
--- NOTE | 2024-04-25 18:16 | HPS.HSE ---
Family Physician
-
Family Physician: Ishaan Ames
Chief Complaint
-
abd pain nv
History of Present Illness
68 female history of GERD hiatal hernia hypertension alcohol abuse accidental Tylenol overdose, colitis, severe esophagitis, GI bleed secondary to peptic ulcer, IBS, gout, anxiety, presenting with recurrent abdominal pain associated nausea vomiting.
Admits to epigastric pain that starts on the left epigastrium radiates to right epigastrium sharp intermittent nothing makes better. Associated nausea vomiting that has been clear. Acutely started yesterday in the evening. Denies ingestion on
toxic alcohol and diarrhea
Denies recent alcohol use, diarrhea no bloody stool, vomiting blood, blood in urine
In the ED labs vitals obtained. No CT as she recently had 11 CTs completed this year and CT angio for the same scenario which was negative. She has a high anion gap metabolic acidosis with a lactate of 2.7.
Past surgical appendectomy cholecystectomy hysterectomy orthopedic surgerie
Former smoker
Has not drink alcohol in few weeks
No history of drug use
Living with friends
Medical History
Past Medical History
Past Medical History: Reports Other
Past Surgical History: Reports Appendectomy, Cholecystectomy and Orthopedic
Social History
Tobacco: Former Smoker
Family History
Family History: Not pertinent
Allergies / Home Medications
Allergies reflects when Allergies were last updated in [employer].
Home Medications with original date entered in [employer]
Allergy/Medication List:
Allergies
Allergy/AdvReac Type Severity Reaction Status Date / Time
aspirin Allergy Unknown Verified 04/07/24 13:52
gabapentin Allergy Unknown Verified 04/07/24 13:52
NSAIDS (Non-Steroidal Allergy Unknown Verified 04/07/24 13:52
Anti-Inflamma
[id number]-[id number] Reductase Allergy Swelling Verified 04/07/24 13:52
Inhibitor
Sulfa (Sulfonamide Allergy Unknown Verified 04/07/24 13:52
Antibiotics)
Home Medications
lorazepam 0.5 mg tablet 0.5 mg PO HSPRN PRN anxiety/sleep #7 tabs 03/31/24
pantoprazole 40 mg tablet,delayed release 40 mg PO BID GERD #120 tabs 03/31/24
cholestyramine (with sugar) 4 gram powder for susp in a packet 1 ea PO Q8H #60 ea 04/13/24
dicyclomine 10 mg capsule 10 mg PO BID #60 caps 04/13/24
folic acid 1 mg tablet 1 mg PO DAILY #30 tabs 04/13/24
hydrocortisone acetate 25 mg rectal suppository 25 mg MO HS #12 ea 04/13/24
magnesium oxide 500 mg capsule 500 mg PO BID #60 caps 04/13/24
potassium chloride 20 mEq tablet,extended release 20 meq PO DAILY #30 tabs 04/13/24
sucralfate 100 mg/mL oral suspension 1 g (10 mL) PO ACHS #414 mL 04/13/24
thiamine HCl (vitamin B1) 100 mg tablet 100 mg PO BID #60 tabs 04/13/24
Review of Systems
-
A 12 point ROS was completed and negative except as noted: Yes
Physical Exam
Vital Signs
Vital Signs
Temp Pulse Resp BP Pulse Ox
98.9 F 96 17 141/89 95
04/25/24 13:37 04/25/24 18:00 04/25/24 17:00 04/25/24 18:00 04/25/24 18:04
Physical Exam
General: No Apparent Distress
Laboratory Results
-
04/25/24 14:14
04/25/24 14:14
Laboratory Results
Lactic Acid 2.6 mmol/L (0.7-2.0) H 04/25/24 14:14
Total Bilirubin 1.3 mg/dl (0.2-1.3) 04/25/24 14:14
AST 52 U/L (14-36) H 04/25/24 14:14
ALT 22 U/L (0-35) 04/25/24 14:14
Alkaline Phosphatase 105 U/L (38-126) 04/25/24 14:14
Troponin I < 0.012 ng/ml 04/25/24 14:14
Lipase 65 U/L (23-300) 04/25/24 14:14
Impression/Plan
-
NAD, resting comfortably in bed
Scleral anicteric
Dry mucous membranes
No JVD
CTA bilateral
Normal S1-S2 no murmurs
Soft nontender nondistended bowel sounds active
No peripheral pitting edema
Moves extremities spontaneously
AAOx3
Abdominal pain nausea vomiting possibly related to esophagitis versus gastritis. Low clinical suspicion for cardiac troponin negative and EKG nonischemic.
-IV fluids
-PPI
-Carafate
-Clear liquid diet
-GI consult
High anion gap metabolic acidosis with a delta gap 18, with a delta ratio of 1.3. AG. Possibly related to lactate/dehydration
-IV fluids with lactated Ringer's
-Obtain VBG
-Alcohol level, aspirin level, Tylenol level for completeness
-If not improving consult Neph
Slight JULI baseline less than 1. Likely related to vomiting and dehydration.
-Provide IV fluids.
-Avoid nephrotoxins hypotension
-Monitor urinary output
Hyponatremia hypovolemic
-Calculated serum osm of 272
-Provide IV fluids with LR
-Check urine sodium/Osm/creat
GERD
-Continue PPI
DVT prophylaxis
-HSQ
[2024-04-25] MEDS: LR 1000 IV (20:02)
--- NOTE | 2024-04-25 20:15 | PTCARENOTE ---
Addendum entered by Lucero Sparks RN 04/26/24 00:25:
Patient placed on Enhanced Precautions as admitted with multiple loose BM ( patient unable to recall how many BM she had at home) and had two loose BM here
Original Note:
Patient c/o 9/10 abdominal pain and c/o nausea. Nothing ordered for this patient. NIDHI Orta made aware, See MAR for new orders.
[2024-04-25] MEDS: PROTONIX 40 MG PO (20:35)
[2024-04-25] MEDS: VITAMIN B1 100 MG PO (20:35)
[2024-04-25] MEDS: BENTYL 10 MG PO (20:35)
[2024-04-25] MEDS: ZOFRAN 4 MG IV (20:35)
[2024-04-25 20:55] LABS: Acetaminophen < 10 ug/ml (10-30); Salicylate < 1.0 mg/dl (2.0-20.0)
[2024-04-25] MEDS: MAGNESIUM OXIDE PO (21:24)
[2024-04-25] MEDS: CARAFATE SUSPENSION 1 GM PO (21:27)
[2024-04-25] MEDS: ANUSOL HC RECTAL (23:03)
[2024-04-25] MEDS: ATIVAN 0.5 MG PO (23:07)
[2024-04-25] MEDS: HEPARIN 5000 UNITS SC (23:10)
[2024-04-25] MEDS: BENADRYL 6.25 MG IV (23:12)
[2024-04-25] MEDS: QUESTRAN 4 GRAM PO (23:12)
[2024-04-26 03:12] VITALS: BP 106/54
[2024-04-26] MEDS: LR 1000 IV ×3 (05:15→21:12)
[2024-04-26 05:30] VITALS: BMI 23.1
[2024-04-26] MEDS: MAGNESIUM OXIDE 500 MG PO ×2 (07:30→20:05)
[2024-04-26] MEDS: BENTYL 10 MG PO (07:30)
[2024-04-26] MEDS: VITAMIN B1 100 MG PO ×2 (07:30→20:05)
[2024-04-26] MEDS: HEPARIN 5000 UNITS SC ×3 (07:30→23:01)
[2024-04-26] MEDS: CARAFATE SUSPENSION 1 GM PO ×4 (07:30→21:10)
[2024-04-26] MEDS: QUESTRAN 4 GRAM PO ×3 (07:30→23:01)
[2024-04-26] MEDS: PROTONIX 40 MG PO ×2 (07:30→20:06)
[2024-04-26] MEDS: FOLVITE 1 MG PO (07:30)
[2024-04-26 08:10] VITALS: BP 137/79
--- NOTE | 2024-04-26 08:35 | W.PN.HOSP.TC ---
Today's Communication/Plan
-
follow up bmp
continue ivf
follow up gi rec
continue ppi
monitor stool output
-if diarrheal then will order cdiff and stool culture
Assessment / Plan
Assessment / Plan
NAD, resting comfortably in bed
Scleral anicteric
Dry mucous membranes
No JVD
CTA bilateral
Normal S1-S2 no murmurs
Soft epigastric tenderness nondistended bowel sounds active
No peripheral pitting edema
Moves extremities spontaneously
AAOx3
Abdominal pain nausea vomiting possibly related to esophagitis versus gastritis. Low clinical suspicion for cardiac troponin negative and EKG nonischemic.
-IV fluids
-PPI
-Carafate
-Clear liquid diet
-GI consult
High anion gap metabolic acidosis with a delta gap 18, with a delta ratio of 1.3. AG. Possibly related to lactate/dehydration. Without osmolar gap therefore, unlikely toxic alcohol
-IV fluids with lactated Ringer's
-Obtain VBG
-Alcohol level, aspirin level, Tylenol level for completeness (unclear as to why it was cancelled). Unlikely to be of benefit at this time as she has been in the hospital for 24horus now
-If not improving consult Neph
Slight JULI baseline less than 1. Likely related to vomiting and dehydration.
-Provide IV fluids.
-Avoid nephrotoxins hypotension
-Monitor urinary output
Hyponatremia hypovolemic
-Calculated serum osm of 272
-Provide IV fluids with LR
-Check urine sodium/Osm/creat
GERD
-Continue PPI
DVT prophylaxis
-HSQ
Anticipated Discharge: 24 - 48 hours
Subjective/Interval History
-
Date of Service: April 26, 2024
seen and examined
states abd pain has returned
has been havig diarrhea since last night
unable to tell me if loose or watery
she is rather a poor historian for her age/functional status
Objective Data
-
Labs:
Laboratory Results
04/26/24
08:13
Sodium Pending
Potassium Pending
Chloride Pending
Carbon Dioxide Pending
BUN Pending
Creatinine Pending
Glucose Pending
Calcium Pending
Vital Signs:
Vital Signs
Temp Pulse Resp BP Pulse Ox
97.9 F 108 19 137/79 98
04/26/24 08:10 04/26/24 08:10 04/26/24 08:10 04/26/24 08:10 04/26/24 08:10
I&O
04/25/24 04/26/24 04/27/24
06:59 06:59 06:59
Intake Total 480 / 480
Balance 480 / 480
[2024-04-26 09:09] LABS: Blood Urea Nitrogen 7 mg/dl (7-17); Calcium 8.8 mg/dl (8.4-10.2); Carbon Dioxide 24 mmol/L (22-30); Chloride 97 mmol/L (98-107); Estimated Creatinine Clearance 52 ml/min; Glucose 157 mg/dl (70-99); Potassium 3.3 mmol/L (3.5-5.1); Sodium 132 mmol/L (135-145); eGFR > 60.00
[2024-04-26 11:42] VITALS: BP 103/62
--- NOTE | 2024-04-26 12:36 | CON.GI ---
Consultation
-
Date/Time Consultation Requested: 04/25/2024, 6pm
Date/Time Consultation Performed: 04/26/2024, 2:30 pm
Requesting Provider: Dr. Fay
Performing Provider: Dr. Prince
Reason for Consultation: abd pain, n/v
Medical History
Chief Complaint / HPI
Chief Complaint: abd pain, n/v
History of Present Illness:
68 yo F well known to my group with many admissions and non compliance.
Past medical history significant for GERD, hiatal hernia, hypertension, alcohol abuse, accidental Tylenol OD managed with NAC, colitis, moderated severe esophagitis lower third esophagus with no bleeding 03/15/24, admission to ICU end of February 2024
concerning of intestinal ischemia given severe acidosis, admission with suspected C. difficile infection (antigen positive toxin negative-> treated early February 2024), prior GI bleed secondary to peptic ulcer, IBS, suspected gout, anxiety, multiple
hospitalizations with last one with her being discharged 04/13/24 and now returning 04/26/2024.
Her chronic GI issues are: diarrhea (managed with questran); abd pain/nausea (managed with PPI BID). Seen in office once November 2023 with Yris (canceled multiple scopes with Dr. Davis and OV).
C/o same issues (abd pain, n/v, diarrhea) and stating she did not take her home meds. Feeling better today. States has not drank in a few weeks.
Labs significant for lactic acid initially 2.6 repeat 2; bicarb 10 now 24. Hb at baseline/above. WBC 12.9.
Abd XR no obstruction.
Last CT 04/06 reviewed overall unremarkable (fatty liver, HH, liver cysts, tics, mild wall thickening colon 2/2 underdistension, short appendix).
Past Medical History
Past Medical History: Other (GERD (LA grade C/D esophagitis on EGD in 2022, questionable history of peptic ulcer disease with prior GI bleed), Psychiatric (Anxiety, depression) and Other (IBS, suspected gout, history of C. difficile antigen
positive, chronic anemia))
Past Surgical History: Other (Appendectomy, Cholecystectomy and Gynecological (Hysterectomy, right upper extremity epicondylitis x 2))
Social History
Tobacco: Non-Smoker
Alcohol: Former
Drug: None
Family History
Family History: Reviewed & Not Pertinent
Allergies / Home Medications
Allergy/AdvReac Type Severity Reaction Status Date / Time
aspirin Allergy Unknown Verified 04/07/24 13:52
gabapentin Allergy Unknown Verified 04/07/24 13:52
NSAIDS (Non-Steroidal Allergy Unknown Verified 04/07/24 13:52
Anti-Inflamma
Etexozb-WEL-FiD Reductase Allergy Swelling Verified 04/07/24 13:52
Inhibitor
Sulfa (Sulfonamide Allergy Unknown Verified 04/07/24 13:52
Antibiotics)
�Medication �Instructions �Recorded
lorazepam 0.5 mg tablet 0.5 mg PO HSPRN PRN anxiety/sleep 03/31/24
#7 tabs
pantoprazole 40 mg tablet,delayed 40 mg PO BID GERD #120 tabs 03/31/24
release
cholestyramine (with sugar) 4 gram 1 ea PO Q8H #60 ea 04/13/24
powder for susp in a packet
dicyclomine 10 mg capsule 10 mg PO BID #60 caps 04/13/24
folic acid 1 mg tablet 1 mg PO DAILY #30 tabs 04/13/24
hydrocortisone acetate 25 mg 25 mg TX HS #12 ea 04/13/24
rectal suppository
magnesium oxide 500 mg capsule 500 mg PO BID #60 caps 04/13/24
potassium chloride 20 mEq 20 meq PO DAILY #30 tabs 04/13/24
tablet,extended release
sucralfate 100 mg/mL oral 1 g (10 mL) PO ACHS #414 mL 04/13/24
suspension
thiamine HCl (vitamin B1) 100 mg 100 mg PO BID #60 tabs 04/13/24
tablet
Review of Systems
-
All other systems: A 12 pt ROS was Negative except as stated above in HPI
Vital Signs
Temp Pulse Resp BP Pulse Ox
98.8 F 89 19 103/62 97
04/26/24 11:42 04/26/24 11:42 04/26/24 11:42 04/26/24 11:42 04/26/24 11:42
Physical Exam
Exam
General: Well Developed
HEENT: Normocephalic
Respiratory: Clear
Cardiac: S1/S2
GI: Non Tender and Non Distended
Musculoskeletal: No Cyanosis
Skin: Warm
Neuro: AO x 3
Psych: Calm
Results
WBC 12.9 10^3/uL (4.8-10.8) H 04/25/24 14:14
Hgb 9.1 g/dL (12.0-16.0) L 04/25/24 14:14
Hct 26.7 % (37.0-47.0) L 04/25/24 14:14
MCV 93.4 fL (81.0-99.0) 04/25/24 14:14
Plt Count 282 10^3/uL (130-400) 04/25/24 14:14
Absolute Neuts (auto) 11.2 10^3/uL (1.4-6.5) H 04/25/24 14:14
Sodium 132 mmol/L (135-145) L 04/26/24 08:13
Potassium 3.3 mmol/L (3.5-5.1) L 04/26/24 08:13
Chloride 97 mmol/L (98-107) L 04/26/24 08:13
Carbon Dioxide 24 mmol/L (22-30) 04/26/24 08:13
BUN 7 mg/dl (7-17) 04/26/24 08:13
Creatinine 0.9 mg/dL (0.6-1.0) 04/26/24 08:13
Calcium 8.8 mg/dl (8.4-10.2) 04/26/24 08:13
Total Bilirubin 1.3 mg/dl (0.2-1.3) 04/25/24 14:14
AST 52 U/L (14-36) H 04/25/24 14:14
ALT 22 U/L (0-35) 04/25/24 14:14
Alkaline Phosphatase 105 U/L (38-126) 04/25/24 14:14
Lipase 65 U/L (23-300) 04/25/24 14:14
Diagnostic Image Results:
Prior GI Procedures:
EGD 03/15/24 Dr. Warner - Mildly severe reflux esophagitis with no bleeding.
- A small amount of food (residue) in the stomach.
- Normal examined duodenum.
- No specimens collected.
EGD 01/20/24 Dr Alaniz:
- No gross lesions in the entire esophagus.
- Z-line irregular, 35 cm from the incisors. Biopsied.
- Small hiatal hernia.
- Congestive gastropathy. Biopsied.
- Erythematous mucosa in the antrum. Biopsied.
- Normal examined duodenum.
EGD
06/11/23, Dr. Warner
�� � � � � � � � - LA Grade C reflux esophagitis with no bleeding.
�� � � � � � � � � � � - Normal stomach.
�� � � � � � � � � � � - Normal examined duodenum.
EGD
03/15/23, Dr. Rosen
� � � � � � � � - LA Grade D reflux esophagitis. Slight improvement
�� � � � � � � � � � � from previous exam.
�� � � � � � � � � � � - Medium-sized hiatal hernia.
�� � � � � � � � � � � - No gross lesions in the entire stomach.
�� � � � � � � � � � � - Normal duodenal bulb, first portion of the duodenum
�� � � � � � � � � � � and second portion of the duodenum.
EGD
12/17/22, Dr. Rosen� � � � �
� � � � � � � � - LA Grade D esophagitis. Circumferential superficial
�� � � � � � � � � � � ulcers in distal esophagus.
�� � � � � � � � � � � - Medium-sized hiatal hernia.
Colonoscopy 01/20/24: (ayo) - Preparation of the colon was poor.
- The examined portion of the ileum was normal.
- Two 3 to 14 mm polyps in the cecum, removed with a
cold snare and removed using injection-lift and a hot
snare. Resected and retrieved.
- One 7 mm polyp in the ascending colon, removed with
a hot snare. Resected and retrieved.
- One 7 mm polyp in the transverse colon, removed with
a hot snare. Resected and retrieved.
- Two 3 to 15 mm polyps in the distal transverse
colon, removed with a cold snare and removed using
injection-lift and a hot snare. Resected and retrieved.
- One 4 mm polyp in the descending colon, removed with
a cold snare. Resected and retrieved.
- Normal mucosa in the entire examined colon. Biopsied.
- Diverticulosis in the recto-sigmoid colon, in the
sigmoid colon and in the descending colon.
- Internal hemorrhoids. - Repeat colonoscopy in 6 months for surveillance and
poor prep.
Colonoscopy:� 5-10 years ago at [facility] per pt, unknown results
Assessment / Plan
-
68yo female presents with nausea, vomiting, abd pain with history of severe esophagitis as well as diarrhea history of CDI and likely IBS.
Plan:
-Continue pantoprazole 40 mg BID
-Continue carafate
-Continue questran - now at q8
-Low residue/low fat, small frequent meals
-Increase bentyl from 10 bid to 20 tid
-May benefit from GES but bentyl needs to be held 3 days before - perhaps she has gastroparesis which led to severe reflux in the past, last egd with food in stomach
-Follow up colonoscopy in June as recommended.
Outpatient GI follow up. If tolerates diet ok gi pov for d/c.
Case management if possible - patient has recurring hospitalizations due to medication non compliance.
-
-
Thank you for consultation and allowing me to participate in the patient's care. Please call the individual pension consultant GI physician during the after hours with any questions or concerns.
[2024-04-26] MEDS: BENTYL 20 MG PO ×2 (15:37→21:10)
[2024-04-26 15:57] VITALS: BP 115/67
[2024-04-26 19:39] VITALS: BP 126/73
[2024-04-26] MEDS: KCL 40 MEQ PO (20:06)
[2024-04-26 20:33] LABS: Osmolality Urine 84 mOsm/kg (300-900)
[2024-04-26 20:58] LABS: Urine Sodium 10 mmol/L (30-90)
[2024-04-26] MEDS: ATIVAN 0.5 MG PO (21:09)
[2024-04-26] MEDS: ANUSOL HC 25 MG RECTAL (21:10)
[2024-04-26] MEDS: VISBIOME 2 CAP PO (23:01)
[2024-04-26 23:50] VITALS: BP 128/76
--- NOTE | 2024-04-26 23:54 | PTCARENOTE ---
Patient's K- 3.3. from today and never got replaced. Patient still having loose stools ( Large). Madi TERRELL made aware ands see MAR for orders. Sent urine for urinalysis as ordered. As per DISPENSING OPERATOR, no need to collect stool sample as patient with +
cdiff antigen/- toxin from past. Patient remains on enhanced precautions. Hygiene care provided. POC reviewed with patient.
[2024-04-27 03:02] VITALS: BP 134/80
--- NOTE | 2024-04-27 06:07 | W.PN.HOSP.TC ---
Today's Communication/Plan
-
Cont PPI Questrin Bently as per GI
Low residue diet
Replete Potassium
Assessment / Plan
Assessment / Plan
Physical Exam
General: NAD, resting comfortably in bed
HEENT: Scleral anicteric Dry mucous membranes
Neck: No JVD
Resp: CTA bilateral
Cardio: Normal S1-S2 no murmurs
Abd: Soft epigastric tenderness nondistended bowel sounds active
Ext: No peripheral pitting edema
Neuro: AAOx3
Psych: Calm
68F GERD Hiatal Hernia HTN ETOH abuse Colitis Esophagitis/PUD IBS Gout Anxiety here for evaluation Esophagitis vs Gastritis w associate HAGMA likely d/t diarrhea/dehydration
Abdominal pain nausea vomiting possibly related to esophagitis versus gastritis. Low clinical suspicion for cardiac troponin negative and EKG nonischemic.
-IV fluids
-PPI
-Carafate
-Clear liquid diet
-GI consult appreciated
High anion gap metabolic acidosis with a delta gap 18, with a delta ratio of 1.3. AG. Possibly related to lactate/dehydration. Without osmolar gap therefore, unlikely toxic alcohol
-IV fluids with lactated Ringer's
-VBG notes metabolic alkalosis compensated with respiratory acidosis
-neg Alcohol, Aspirin, Tylenol levels.
-HAGMA since resolved
Slight JULI baseline less than 1. Likely related to vomiting and dehydration.
-IVF support
-Avoid nephrotoxins hypotension
-Monitor I/O
Hyponatremia
resolved
Hypokalemia
likely d/t diarrhea
monitor and replete as necessary
GERD
-Continue PPI
DVT prophylaxis
-HSQ
I spent a total of 50 minutes with the patient or on the floor. More than 50% of this time involved counseling and coordination of care.
Anticipated Discharge: 24 - 48 hours
Subjective/Interval History
-
Date of Service: April 27, 2024
seen and examined at bedside in no acute distress resting comfortably in bed. Continues to have diarrhea nonbloody. Also reports some abd tenderness.
Objective Data
-
Labs:
Laboratory Results
04/27/24
06:00
WBC Pending
Hgb Pending
Hct Pending
Plt Count Pending
Sodium Pending
Potassium Pending
Chloride Pending
Carbon Dioxide Pending
BUN Pending
Creatinine Pending
Glucose Pending
Calcium Pending
Vital Signs:
Vital Signs
Temp Pulse Resp BP Pulse Ox
99.2 F 98 18 134/80 97
04/27/24 03:02 04/27/24 03:02 04/27/24 03:02 04/27/24 03:02 04/27/24 03:02
I&O
04/25/24 04/26/24 04/27/24
06:59 06:59 06:59
Intake Total 1680 / 1680 720 / 720
Balance 1680 / 1680 720 / 720
[2024-04-27 07:48] VITALS: BP 117/69
[2024-04-27] MEDS: CARAFATE SUSPENSION 1 GM PO ×4 (08:30→21:01)
[2024-04-27] MEDS: BENTYL 20 MG PO ×3 (08:30→21:01)
[2024-04-27] MEDS: FOLVITE 1 MG PO (08:30)
[2024-04-27] MEDS: PROTONIX 40 MG PO ×2 (08:30→19:56)
[2024-04-27] MEDS: HEPARIN 5000 UNITS SC ×3 (08:30→23:00)
[2024-04-27] MEDS: MAGNESIUM OXIDE 500 MG PO ×2 (08:30→19:56)
[2024-04-27] MEDS: VISBIOME 1 CAP PO (08:31)
[2024-04-27] MEDS: VITAMIN B1 100 MG PO ×2 (08:31→19:56)
[2024-04-27] MEDS: QUESTRAN 4 GRAM PO ×3 (08:31→23:00)
--- NOTE | 2024-04-27 09:18 | W.PN.GI.CBS2 ---
Addendum entered and electronically signed by Nya Prince MD 04/27/24 15:53:
I saw and examined the patient.
The BUFFING MACHINE OPERATOR SEMIAUTOMATIC or PA's note was reviewed and I agree with the note.
Comment: 68-year-old female past medical history as below well-known to us from multiple admissions for similar issues with nausea, vomiting, abdominal pain, diarrhea. She does have history of C. difficile and concern for intestinal ischemia in the
past. Today her main complaint is ongoing diarrhea. C. difficile was checked and was negative. She has been increased on her Questran to every 8 hours. Her Bentyl has also been increased to 20 three history of esophagitis times a day. For her
with nausea vomiting and pain which she did have on admission, her PPI is ordered for twice a day with Carafate. She is complaining of ongoing nausea so Compazine was ordered as well by me. She may benefit from outpatient gastric emptying study.
She does have history of medical noncompliance and typically does not take her medications.
Once symptoms resolved, needs outpatient follow up has seen Yris MILLER/Dr. Davis in past.
Original Note:
Today's Communication / Plan
-
Check stool studies. Continue Questran. Continue Bentyl 3 times daily. Low residue gastroparesis diet as tolerated. Would avoid narcotics as able.
Assessment / Plan
-
The pt is a 68yo female presents with a PMH significant for GERD, hiatal hernia, hypertension, alcohol abuse, accidental Tylenol OD managed with NAC, colitis, moderated severe esophagitis lower third esophagus with no bleeding 03/15/24, admission to
ICU end of February concerning of intestinal ischemia given severe acidosis, admission with suspected C. difficile infection (antigen positive toxin negative-> treated early February 2024),prior GI bleed secondary to peptic ulcer, IBS, suspected gout,
anxiety, who presented to the ER with complaints of nausea, vomiting, abd pain, and diarrhea, which we were asked to evaluate for. She has had numerous hospitalizations over the past year for reasons as mentioned above. She historically has had
non-compliance with medications resulting in re-hospitalization with recurrent GI symptoms. She did not take her home PPI and Questran as previously directed. With mild leukocytosis 12.9 and severe acidosis with NaBicarb 10, now improved. Lactic
acid elevated and has since normalized. Abdominal XR with no obstruction.
Problem list:
-recurrent n/v/d/abdominal pain
-Leukocytosis, resolved
-Hyponatremia, improving
-Hypokalemia
-History of prior GI bleed secondary to peptic ulcer disease
-History of LA grade D esophagitis
-Chronically dilated CBD status post cholecystectomy
-Severe acidosis, resolved
Other pertinent medical history:
-Hiatal hernia
-Hypertension
-History of alcohol abuse
-Accidental Tylenol overdose managed with NAC drip
-Colitis
-History of C. difficile
-IBS
-Gout
-Anxiety
Recommendations:
-Etiology of symptoms possibly refractory to her stopping her medications at home versus gastroenteritis versus gastroparesis versus IBS flare versus other.
-Will send stool studies given her ongoing diarrhea
-Continue medication regimen for GERD/esophagitis with PPI twice daily and Carafate ACHS
-Continue Questran, increased to every 8 hours yesterday. Monitor for stool response
-Continue with low residue/low fat, small frequent meals (gastroparesis diet)
-Continue with Bentyl 20 mg 3 times daily
-I emphasized she will need to make sure to continue her medications when going home given her recurrent hospitalizations and refractory symptoms are likely secondary to her stopping her medications.
-Consider eventual gastric emptying study on outpatient basis given prior EGD showing food in the stomach. Possibly contributing to her current symptoms. Noted will need to hold Bentyl 3 days prior to the test
-Eventual outpatient follow-up, to discuss colonoscopy then.
-Agree with care management consult given her multiple hospitalizations. Will need to review if she is able to care for herself competently and manage her medications at home by herself.
-Further management pending above
Subjective
Subjective
Date of Service: April 27, 2024
The pt was seen and examined at the bedside. She reports she continues with profuse diarrhea overnight into this morning. She has had 2 liquid stools that are yellow in color. She also is complaining of intermittent lower abdominal pain despite
increased Bentyl dosing.
Objective
Data Reviewed
Laboratory Data:
Laboratory Results
Total Bilirubin 1.3 mg/dl (0.2-1.3) 04/25/24 14:14
AST 52 U/L (14-36) H 04/25/24 14:14
ALT 22 U/L (0-35) 04/25/24 14:14
Alkaline Phosphatase 105 U/L (38-126) 04/25/24 14:14
Lipase 65 U/L (23-300) 04/25/24 14:14
Vital Signs and I&O:
Vital Signs
Temp Pulse Resp BP Pulse Ox
97.9 F 84 18 117/69 94
04/27/24 07:48 04/27/24 07:48 04/27/24 07:48 04/27/24 07:48 04/27/24 07:48
I&O
04/26/24 04/27/24 04/28/24
06:59 06:59 06:59
Intake Total 0 / 1680 1919
Balance 0 / 1680 1919
Physical Exam
Physical Exam
HEENT: Anicteric
Cardiology: Normal Sinus Rhythm, S1 and S2
Pulmonary: Clear
GI: Soft, Non Distended, Tender (Right lower quadrant left lower quadrant) and Normal Bowel Sounds
Rectal: Brown (yellow)
[2024-04-27 09:21] LABS: Hematocrit 27.4 % (37.0-47.0); Hemoglobin 9.7 g/dL (12.0-16.0); Mean Corp Hgb Conc. 35.4 g/dL (33.0-37.0); Mean Corpuscular Hgb 32.7 pg (27.0-31.0); Mean Corpuscular Volume 92.3 fL (81.0-99.0); Mean Platelet Volume 10.4 fL (7.4-10.4); Platelet Count 192 10^3/uL (130-400); Red Blood Cell Count 2.97 10^6/uL (4.20-5.40); White Blood Cell Count 7.1 10^3/uL (4.8-10.8)
--- NOTE | 2024-04-27 10:47 | CM ---
marketing services manager reviewed patient's chart and met with patient and patient lives with her friend in a one story home, with no steps to enter, patient is independent with adl's and ambulation, patient has a walker that she does not use.
PCP: Dr. Ishaan Ames
Pharmacy; [facility].
Plan; To follow with patient progress and assist with any discharge planning needs, c-diff pending
[2024-04-27 11:18] VITALS: BP 130/88
[2024-04-27 11:36] LABS: Blood Urea Nitrogen 3 mg/dl (7-17); Carbon Dioxide 24 mmol/L (22-30); Chloride 103 mmol/L (98-107); Estimated Creatinine Clearance 52 ml/min; Glucose 156 mg/dl (70-99); Potassium 3.1 mmol/L (3.5-5.1); Sodium 137 mmol/L (135-145); eGFR > 60.00
[2024-04-27 15:17] VITALS: BP 119/78
[2024-04-27] MEDS: COMPAZINE 5 MG IV ×2 (16:01→22:56)
[2024-04-27] MEDS: KLOR-CON 40 MEQ PO (16:37)
[2024-04-27] MEDS: KCL 270 MEQ IV (16:51)
--- NOTE | 2024-04-27 18:15 | VATNOTE ---
Heat applied to R arm phlebitis.
[2024-04-27 19:37] VITALS: BP 96/63
[2024-04-27] MEDS: ATIVAN 0.5 MG PO (21:01)
[2024-04-27] MEDS: ANUSOL HC RECTAL (21:06)
[2024-04-27 23:34] VITALS: BP 127/80
[2024-04-28 03:15] VITALS: BP 136/57
--- NOTE | 2024-04-28 07:12 | W.PN.HOSP.TC ---
Today's Communication/Plan
-
imodium prn
replete Mg Phos
pain control
antiemetic
Assessment / Plan
Assessment / Plan
Physical Exam
General: NAD, resting comfortably in bed
HEENT: Scleral anicteric Dry mucous membranes
Neck: No JVD
Resp: CTA bilateral
Cardio: Normal S1-S2 no murmurs
Abd: Soft epigastric tenderness nondistended bowel sounds active
Ext: No peripheral pitting edema
Neuro: AAOx3
Psych: Calm
68F GERD Hiatal Hernia HTN ETOH abuse Colitis Esophagitis/PUD IBS Gout Anxiety here for evaluation Esophagitis vs Gastritis w associate HAGMA likely d/t diarrhea/dehydration
Abdominal pain nausea vomiting possibly related to esophagitis versus gastritis. Low clinical suspicion for cardiac troponin negative and EKG nonischemic.
-IV fluids
-PPI
-Carafate
-Clear liquid diet
-GI consult appreciated
High anion gap metabolic acidosis with a delta gap 18, with a delta ratio of 1.3. AG. Possibly related to lactate/dehydration. Without osmolar gap therefore, unlikely toxic alcohol
-IV fluids with lactated Ringer's
-VBG notes metabolic alkalosis compensated with respiratory acidosis
-neg Alcohol, Aspirin, Tylenol levels.
-HAGMA since resolved
Possible JULI ruled out initial Cr 1.1 near baseline 0.9
Hyponatremia
resolved
Hypokalemia
Hypophosphatemia
likely d/t diarrhea
monitor and replete as necessary
GERD
-Continue PPI
DVT prophylaxis
-HSQ
I spent a total of 50 minutes with the patient or on the floor. More than 50% of this time involved counseling and coordination of care.
Anticipated Discharge: 24 - 48 hours
Subjective/Interval History
-
Date of Service: April 28, 2024
diarrhea persists along with abd discomfort/pain and nausea. Tolerating diet.
Objective Data
-
Labs:
Laboratory Results
04/28/24
06:00
WBC Pending
Hgb Pending
Hct Pending
Plt Count Pending
Sodium Pending
Potassium Pending
Chloride Pending
Carbon Dioxide Pending
BUN Pending
Creatinine Pending
Glucose Pending
Calcium Pending
Vital Signs:
Vital Signs
Temp Pulse Resp BP Pulse Ox
97.6 F 85 18 136/57 95
04/28/24 03:15 04/28/24 03:15 04/28/24 03:15 04/28/24 03:15 04/28/24 03:15
I&O
04/27/24 04/28/24 04/29/24
06:59 06:59 06:59
Intake Total 1919
Balance 1919
[2024-04-28 07:51] VITALS: BP 131/81
[2024-04-28] MEDS: CARAFATE SUSPENSION 1 GM PO ×4 (07:55→21:02)
[2024-04-28] MEDS: HEPARIN 5000 UNITS SC ×3 (07:56→23:00)
[2024-04-28] MEDS: FOLVITE 1 MG PO (07:56)
[2024-04-28] MEDS: PROTONIX 40 MG PO ×2 (07:56→19:33)
[2024-04-28] MEDS: MAGNESIUM OXIDE 500 MG PO ×2 (07:56→19:33)
[2024-04-28] MEDS: BENTYL 20 MG PO ×3 (07:56→21:02)
[2024-04-28] MEDS: QUESTRAN 4 GRAM PO ×3 (07:56→23:00)
[2024-04-28] MEDS: VITAMIN B1 100 MG PO ×2 (07:56→19:33)
[2024-04-28] MEDS: VISBIOME 1 CAP PO (07:56)
[2024-04-28] MEDS: COMPAZINE 5 MG IV ×2 (07:57→14:01)
--- NOTE | 2024-04-28 08:25 | PN.CDI ---
CDI
- -
CDI:
Physician Documentation Request
Admit Date: 04/25/24 18:02
Dear Doctor Annika,
Please review the following and provide your response in the progress notes.
Clinical Indicators:
The diagnosis of JULI was documented on 8 PN.
- 8 PN 'Slight JULI baseline less than 1'
Laboratory Tests
04/25/24 04/26/24 04/27/24
14:14 08:13 08:07
Creatinine 1.1 H 0.9 0.9
eGFR 54.06 > 60.00 > 60.00
Please clarify the following:
- JULI remains a known or suspected condition for this patient and is further supported by (include additional documentation in the medical record)
- JULI has been ruled out and a more appropriate diagnosis for this patient's condition is .
- Other (please specify)
Criteria for JULI*
1 Increase in serum creatinine by > or = to 0.3 mg/dL (> or = to 26.5 micromol/L) within 48 hours, OR
2 Increase in serum creatinine to > or = to 1.5 times baseline, which is known or presumed to have occurred within 7 days, OR
3 Urine volume < 0.5 nL/kg/hour for six hours
Stages of Chronic Kidney Disease*
Level Description GFR
G1 Normal or High >90
G2 Mildly decreased 60-89
G3a Mildly to moderately decreased 45-59
G3b Moderately to severely decreased 30-44
G4 Severely decreased 15-29
G5 Kidney failure <15
Use of terms such as suspected, likely, concern for, or probable (associated with a specific diagnosis that is being evaluated, monitored, or treated as if it exists) are acceptable and can be coded in the inpatient setting, when documented at the
time of discharge.
Thank you,
Riccardo Cross RN
CDI Specialist
Please use your independent medical judgment in providing your response.
[2024-04-28 11:18] LABS: Hematocrit 26.8 % (37.0-47.0); Hemoglobin 9.2 g/dL (12.0-16.0); Mean Corp Hgb Conc. 34.3 g/dL (33.0-37.0); Mean Corpuscular Hgb 31.8 pg (27.0-31.0); Mean Corpuscular Volume 92.7 fL (81.0-99.0); Mean Platelet Volume 9.9 fL (7.4-10.4); Platelet Count 179 10^3/uL (130-400); Red Blood Cell Count 2.89 10^6/uL (4.20-5.40); Red Cell Dist. Width 17.2 % (11.5-14.5); White Blood Cell Count 6.9 10^3/uL (4.8-10.8)
[2024-04-28 11:30] VITALS: BP 130/74
--- NOTE | 2024-04-28 12:39 | CM ---
records and information manager reviewed patient's chart and plan is to home to friend's house when stable.
Plan; Home to friend's home when stable.
[2024-04-28 14:14] LABS: Blood Urea Nitrogen 8 mg/dl (7-17); Calcium 9.8 mg/dl (8.4-10.2); Carbon Dioxide 27 mmol/L (22-30); Chloride 102 mmol/L (98-107); Estimated Creatinine Clearance 52 ml/min; Glucose 99 mg/dl (70-99); Magnesium 1.1 mg/dl (1.6-2.3); Phosphorus 0.8 mg/dl (2.5-4.5); Potassium 3.6 mmol/L (3.5-5.1); Sodium 136 mmol/L (135-145); eGFR > 60.00
[2024-04-28] MEDS: POTASSIUM PHOSPHATE 259.0909 MEQ IV (14:41)
[2024-04-28] MEDS: IMODIUM 2 MG PO (14:41)
--- NOTE | 2024-04-28 15:24 | W.PN.GI.CBS2 ---
Today's Communication / Plan
-
Recommendations:
-Etiology of symptoms possibly refractory to her stopping her medications at home versus gastroenteritis versus gastroparesis versus IBS flare versus other.
-Stool studies negative for infection-cultures and white cells C. difficile.
-Continue medication regimen for GERD/esophagitis with PPI twice daily and Carafate ACHS
If nausea continues,then will cut down on diet to clear liquid diet.
-Continue Questran every 8 hours yesterday. Monitor for stool response. OK for imodium as needed, stool wbc negative.
-Continue with low residue/low fat, small frequent meals (gastroparesis diet)
-Continue with Bentyl 20 mg 3 times daily
-I emphasized she will need to make sure to continue her medications when going home given her recurrent hospitalizations and refractory symptoms are likely secondary to her stopping her medications.
-Consider eventual gastric emptying study on outpatient basis given prior EGD showing food in the stomach. Possibly contributing to her current symptoms. Noted will need to hold Bentyl 3 days prior to the test
-Eventual outpatient follow-up, to discuss colonoscopy then.
will follow
Assessment / Plan
-
The pt is a 68yo female presents with a PMH significant for GERD, hiatal hernia, hypertension, alcohol abuse, accidental Tylenol OD managed with NAC, colitis, moderated severe esophagitis lower third esophagus with no bleeding 03/15/24, admission to
ICU end of February concerning of intestinal ischemia given severe acidosis, admission with suspected C. difficile infection (antigen positive toxin negative-> treated early February 2024),prior GI bleed secondary to peptic ulcer, IBS, suspected gout,
anxiety, who presented to the ER with complaints of nausea, vomiting, abd pain, and diarrhea, which we were asked to evaluate for. She has had numerous hospitalizations over the past year for reasons as mentioned above. She historically has had
non-compliance with medications resulting in re-hospitalization with recurrent GI symptoms. She did not take her home PPI and Questran as previously directed. With mild leukocytosis 12.9 and severe acidosis with NaBicarb 10, now improved. Lactic
acid elevated and has since normalized. Abdominal XR with no obstruction.
Problem list:
-recurrent n/v/d/abdominal pain
-Leukocytosis, resolved
-Hyponatremia, improving
-Hypokalemia
-History of prior GI bleed secondary to peptic ulcer disease
-History of LA grade D esophagitis
-Chronically dilated CBD status post cholecystectomy
-Severe acidosis, resolved
Other pertinent medical history:
-Hiatal hernia
-Hypertension
-History of alcohol abuse
-Accidental Tylenol overdose managed with NAC drip
-Colitis
-History of C. difficile
-IBS
-Gout
-Anxiety
Recommendations:
-Etiology of symptoms possibly refractory to her stopping her medications at home versus gastroenteritis versus gastroparesis versus IBS flare versus other.
-Stool studies negative for infection-cultures and white cells C. difficile.
-Continue medication regimen for GERD/esophagitis with PPI twice daily and Carafate ACHS
If nausea continues,then will cut down on diet to clear liquid diet.
-Continue Questran every 8 hours yesterday. Monitor for stool response.stool wbc negative.
-Continue with low residue/low fat, small frequent meals (gastroparesis diet)
-Continue with Bentyl 20 mg 3 times daily
-I emphasized she will need to make sure to continue her medications when going home given her recurrent hospitalizations and refractory symptoms are likely secondary to her stopping her medications.
-Consider eventual gastric emptying study on outpatient basis given prior EGD showing food in the stomach. Possibly contributing to her current symptoms. Noted will need to hold Bentyl 3 days prior to the test
-Eventual outpatient follow-up, to discuss colonoscopy then.
will follow
Subjective
Subjective
Date of Service: April 28, 2024 patient continues to report nausea but able to eat low residue diet without vomiting. Reports having multiple loose stools today.
Objective
Data Reviewed
Laboratory Data:
Laboratory Results
04/28/24 10:41
04/28/24 10:41
Laboratory Results
Phosphorus 0.8 mg/dl (2.5-4.5) L* 04/28/24 10:41
Magnesium 1.1 mg/dl (1.6-2.3) L 04/28/24 10:41
Total Bilirubin 1.3 mg/dl (0.2-1.3) 04/25/24 14:14
AST 52 U/L (14-36) H 04/25/24 14:14
ALT 22 U/L (0-35) 04/25/24 14:14
Alkaline Phosphatase 105 U/L (38-126) 04/25/24 14:14
Lipase 65 U/L (23-300) 04/25/24 14:14
Vital Signs and I&O:
Vital Signs
Temp Pulse Resp BP Pulse Ox
98.7 F 110 18 130/74 98
04/28/24 11:30 04/28/24 11:30 04/28/24 11:30 04/28/24 11:30 04/28/24 11:30
I&O
04/27/24 04/28/24 04/29/24
06:59 06:59 06:59
Intake Total 1919
Balance 1919
Physical Exam
Physical Exam
GI: Soft, Non Distended and Non Tender
[2024-04-28 15:40] VITALS: BP 133/77
[2024-04-28] MEDS: MAGNESIUM SULFATE 100 IV (18:29)
[2024-04-28 19:35] VITALS: BP 123/72
[2024-04-28] MEDS: ATIVAN 0.5 MG PO (21:02)
[2024-04-28] MEDS: COMPAZINE 5 MG PO (21:02)
[2024-04-28] MEDS: ANUSOL HC RECTAL (21:02)
[2024-04-28 23:35] VITALS: BP 114/67
[2024-04-29 03:14] VITALS: BP 129/67
[2024-04-29 07:20] VITALS: BP 123/71
--- NOTE | 2024-04-29 07:30 | W.PN.HOSP.TC ---
Today's Communication/Plan
-
imodium prn
replete Mg Phos
pain control
antiemetic
diet as per GI
Assessment / Plan
Assessment / Plan
Physical Exam
General: NAD, resting comfortably in bed
HEENT: Scleral anicteric Dry mucous membranes
Neck: No JVD
Resp: CTA bilateral
Cardio: Normal S1-S2 no murmurs
Abd: Soft epigastric tenderness nondistended bowel sounds active
Ext: No peripheral pitting edema
Neuro: AAOx3
Psych: Calm
68F GERD Hiatal Hernia HTN ETOH abuse Colitis Esophagitis/PUD IBS Gout Anxiety here for evaluation Esophagitis vs Gastritis w associate HAGMA likely d/t diarrhea/dehydration
Abdominal pain nausea vomiting possibly related to esophagitis versus gastritis. Low clinical suspicion for cardiac troponin negative and EKG nonischemic.
-IV fluids
-PPI
-Carafate
-Clear liquid diet advanced to low residue
-imodium prn
-GI consult appreciated
High anion gap metabolic acidosis with a delta gap 18, with a delta ratio of 1.3. AG. Possibly related to lactate/dehydration. Without osmolar gap therefore, unlikely toxic alcohol
-IV fluids with lactated Ringer's
-VBG notes metabolic alkalosis compensated with respiratory acidosis
-neg Alcohol, Aspirin, Tylenol levels.
-HAGMA since resolved
Possible JULI ruled out initial Cr 1.1 near baseline 0.9
Hyponatremia
resolved
Hypokalemia
Hypophosphatemia
likely d/t diarrhea
monitor and replete as necessary
GERD
-Continue PPI
DVT prophylaxis
-HSQ
I spent a total of 50 minutes with the patient or on the floor. More than 50% of this time involved counseling and coordination of care.
Anticipated Discharge: 24 - 48 hours
Subjective/Interval History
-
Date of Service: April 29, 2024
Seen and examined at bedside in no acute distress resting comfortably in bed. Reports some improvement in diarrhea. Also reports 9/10 abd pain. Appears relatively comfortable despite pain report.
Objective Data
-
Labs:
Laboratory Results
04/29/24
06:00
WBC Pending
Hgb Pending
Hct Pending
Plt Count Pending
Sodium Pending
Potassium Pending
Chloride Pending
Carbon Dioxide Pending
BUN Pending
Creatinine Pending
Glucose Pending
Calcium Pending
Vital Signs:
Vital Signs
Temp Pulse Resp BP Pulse Ox
97.4 F 91 18 129/67 97
04/29/24 03:14 04/29/24 03:14 04/29/24 03:14 04/29/24 03:14 04/29/24 03:14
I&O
04/28/24 04/29/24 04/30/24
06:59 06:59 06:59
Intake Total 0 / 0 1939 / 1939
Output Total 500 / 500
Balance 0 / 1820 1440 / 1440
[2024-04-29] MEDS: VITAMIN B1 100 MG PO ×2 (07:56→19:14)
[2024-04-29] MEDS: CARAFATE SUSPENSION 1 GM PO ×4 (07:56→21:17)
[2024-04-29] MEDS: VISBIOME 1 CAP PO (07:56)
[2024-04-29] MEDS: MAGNESIUM OXIDE 500 MG PO (07:57)
[2024-04-29] MEDS: HEPARIN 5000 UNITS SC ×3 (07:57→23:15)
[2024-04-29] MEDS: BENTYL 20 MG PO ×3 (07:57→21:17)
[2024-04-29] MEDS: PROTONIX 40 MG PO ×2 (07:57→19:14)
[2024-04-29] MEDS: FOLVITE 1 MG PO (07:57)
[2024-04-29] MEDS: QUESTRAN 4 GRAM PO ×3 (07:57→23:16)
[2024-04-29 10:20] LABS: Hematocrit 28.3 % (37.0-47.0); Hemoglobin 9.6 g/dL (12.0-16.0); Mean Corp Hgb Conc. 33.9 g/dL (33.0-37.0); Mean Corpuscular Hgb 31.7 pg (27.0-31.0); Mean Corpuscular Volume 93.4 fL (81.0-99.0); Platelet Count 170 10^3/uL (130-400); Red Blood Cell Count 3.03 10^6/uL (4.20-5.40); Red Cell Dist. Width 17.9 % (11.5-14.5); White Blood Cell Count 5.9 10^3/uL (4.8-10.8)
[2024-04-29 11:02] LABS: Blood Urea Nitrogen 14 mg/dl (7-17); Calcium 9.3 mg/dl (8.4-10.2); Carbon Dioxide 26 mmol/L (22-30); Chloride 101 mmol/L (98-107); Estimated Creatinine Clearance 52 ml/min; Glucose 148 mg/dl (70-99); Magnesium 1.6 mg/dl (1.6-2.3); Phosphorus 2.2 mg/dl (2.5-4.5); Potassium 3.3 mmol/L (3.5-5.1); Sodium 136 mmol/L (135-145); eGFR > 60.00
--- NOTE | 2024-04-29 11:02 | CM ---
sales performance manager reviewed patient's chart and patient is well known to this case liner from previous admissions, case liner has reached out to patient's pharmacy in past and has been informed by pharmacist that patient has not picked up her
medication, case liner discussed making sure she obtains her medications and takes them after discharge as prescribed.
Plan; Home with friend when stable.
[2024-04-29] MEDS: COMPAZINE 5 MG PO (11:10)
[2024-04-29 11:45] VITALS: BP 137/56
[2024-04-29] MEDS: MORPHINE SULFATE 2 MG IV (14:03)
[2024-04-29] MEDS: POTASSIUM PHOSPHATE IV (14:04)
[2024-04-29] MEDS: POTASSIUM PHOSPHATE 259.0909 MEQ IV (14:42)
[2024-04-29 15:11] VITALS: BP 118/82
--- NOTE | 2024-04-29 16:30 | W.PN.GI.CBS2 ---
Addendum entered and electronically signed by Jacquie Alaniz MD 04/29/24 19:46:
I saw and examined the patient.
The SUPERVISOR SHOP or PA's note was reviewed and I agree with the note.
Comment: Patient continues to complain of abdominal pain and nausea but no vomiting. Tolerating diet well. She reports having 4-5 bowel movements this morning, loose, no documentation in the chart regarding bowel movements.
Currently on low residue low-fat diet.
Continue PPI twice a day and Carafate before meals and at bedtime.
Stool studies so far negative, continue Questran and monitor bowel movements.
If nausea persists, will put her back on full liquid diet and will need to do gastric emptying study.
Will follow
Original Note:
Today's Communication / Plan
-
as per plan
Assessment / Plan
-
The pt is a 68yo female presents with a PMH significant for GERD, hiatal hernia, hypertension, alcohol abuse, accidental Tylenol OD managed with NAC, colitis, moderated severe esophagitis lower third esophagus with no bleeding 03/15/24, admission to
ICU end of February concerning of intestinal ischemia given severe acidosis, admission with suspected C. difficile infection (antigen positive toxin negative-> treated early February 2024),prior GI bleed secondary to peptic ulcer, IBS, suspected gout,
anxiety, who presented to the ER with complaints of nausea, vomiting, abd pain, and diarrhea, which we were asked to evaluate for. She has had numerous hospitalizations over the past year for reasons as mentioned above. She historically has had
non-compliance with medications resulting in re-hospitalization with recurrent GI symptoms. She did not take her home PPI and Questran as previously directed. With mild leukocytosis 12.9 and severe acidosis with NaBicarb 10, now improved. Lactic
acid elevated and has since normalized. Abdominal XR with no obstruction.
Problem list:
-recurrent n/v/d/abdominal pain
-Leukocytosis, resolved
-Hyponatremia, improving
-Hypokalemia
-History of prior GI bleed secondary to peptic ulcer disease
-History of LA grade D esophagitis
-Chronically dilated CBD status post cholecystectomy
-Severe acidosis, resolved
Other pertinent medical history:
-Hiatal hernia
-Hypertension
-History of alcohol abuse
-Accidental Tylenol overdose managed with NAC drip
-Colitis
-History of C. difficile
-IBS
-Gout
-Anxiety
Recommendations:
-Etiology of symptoms possibly refractory to her stopping her medications at home versus gastroenteritis versus gastroparesis versus IBS flare versus other.
-Stool E coli pending. All other stool studies negative.
-Continue medication regimen for GERD/esophagitis with PPI twice daily and Carafate ACHS.
-Continue Questran every 8 hours yesterday. Monitor for stool response. Patient also on Mag Ox 500 mg BID. If still with diarrhea, please replete Mag with IV.
-Continue with low residue/low fat, small frequent meals (gastroparesis diet)
-Continue with Bentyl 20 mg 3 times daily
-I emphasized she will need to make sure to continue her medications when going home given her recurrent hospitalizations and refractory symptoms are likely secondary to her stopping her medications.
-Consider eventual gastric emptying study on outpatient basis given prior EGD showing food in the stomach. Possibly contributing to her current symptoms. Noted will need to hold Bentyl 3 days prior to the test
-Eventual outpatient follow-up, to discuss colonoscopy then.
Subjective
Subjective
Date of Service: April 29, 2024
Patient states that she is feeling better today. She had loose BMs this am. She i still having LLQ discomfort however this is improving as well. She is eating well without any pain. She is looking forward to dinner. Of note patient on Mag Ox 500 mg
po BID here this admission.
Objective
Data Reviewed
Laboratory Data:
Laboratory Results
04/29/24 09:48
04/29/24 09:48
Laboratory Results
Phosphorus 2.2 mg/dl (2.5-4.5) L 04/29/24 09:48
Magnesium 1.6 mg/dl (1.6-2.3) 04/29/24 09:48
Total Bilirubin 1.3 mg/dl (0.2-1.3) 04/25/24 14:14
AST 52 U/L (14-36) H 04/25/24 14:14
ALT 22 U/L (0-35) 04/25/24 14:14
Alkaline Phosphatase 105 U/L (38-126) 04/25/24 14:14
Lipase 65 U/L (23-300) 04/25/24 14:14
Vital Signs and I&O:
Vital Signs
Temp Pulse Resp BP Pulse Ox
99.3 F 99 18 118/82 95
04/29/24 15:11 04/29/24 15:11 04/29/24 15:11 04/29/24 15:11 04/29/24 15:11
I&O
04/28/24 04/29/24 04/30/24
06:59 06:59 06:59
Intake Total 1819 / 1819 1939 / 1939
Output Total 500 / 500
Balance 1819 1440 / 1440
Physical Exam
Physical Exam
HEENT: Anicteric
Cardiology: Normal Sinus Rhythm
Pulmonary: Clear
GI: Soft, Non Distended, Tender (LLQ) and Normal Bowel Sounds
Neuro: Non Focal
[2024-04-29] MEDS: MAGNESIUM SULFATE 50 IV (19:05)
[2024-04-29] MEDS: KLOR-CON 20 MEQ PO (19:14)
[2024-04-29 19:42] VITALS: BP 142/78
[2024-04-29] MEDS: ANUSOL HC RECTAL (21:17)
[2024-04-29] MEDS: ATIVAN 0.5 MG PO (22:25)
[2024-04-29 23:47] VITALS: BP 139/72
[2024-04-30 03:11] VITALS: BP 117/63
--- NOTE | 2024-04-30 07:12 | PN.CDI ---
CDI
- -
CDI:
Physician Documentation Request
Admit Date: 04/25/24 18:02
Dear Doctor Annika,
Please review the following and provide your response in the progress notes.
Clinical Indicators:
- 8/6 4gm IV Magnesium sulfate given
- 8/7 2 gm IV Magnesium sulfate given
Laboratory Tests
04/28/24 04/29/24
10:41 09:48
Magnesium 1.1 L 1.6
Please provide a diagnosis for the above lab values that were monitored and treatment rendered:
Hypomagnesemia
Clinically insignificant abnormal lab value
Other
Use of terms such as suspected, likely, concern for, or probable (associated with a specific diagnosis that is being evaluated, monitored, or treated as if it exists) are acceptable and can be coded in the inpatient setting, when documented at the
time of discharge.
Thank you,
Riccardo Cross RN
CDI Specialist
Please use your independent medical judgment in providing your response.
--- NOTE | 2024-04-30 07:24 | W.PN.HOSP.TC ---
Today's Communication/Plan
-
imodium prn
pain control
antiemetic
diet as per GI
Assessment / Plan
Assessment / Plan
Physical Exam
General: NAD, resting comfortably in bed
HEENT: Scleral anicteric Dry mucous membranes
Neck: No JVD
Resp: CTA bilateral
Cardio: Normal S1-S2 no murmurs
Abd: Soft epigastric tenderness nondistended bowel sounds active
Ext: No peripheral pitting edema
Neuro: AAOx3
Psych: Calm
68F GERD Hiatal Hernia HTN ETOH abuse Colitis Esophagitis/PUD IBS Gout Anxiety here for evaluation Esophagitis vs Gastritis w associate HAGMA likely d/t diarrhea/dehydration
Abdominal pain nausea vomiting possibly related to esophagitis versus gastritis. Low clinical suspicion for cardiac troponin negative and EKG nonischemic.
-IV fluids
-PPI
-Carafate
-Clear liquid diet advanced to low residue
-imodium prn
-GI consult appreciated
High anion gap metabolic acidosis with a delta gap 18, with a delta ratio of 1.3. AG. Possibly related to lactate/dehydration. Without osmolar gap therefore, unlikely toxic alcohol
-IV fluids with lactated Ringer's
-VBG notes metabolic alkalosis compensated with respiratory acidosis
-neg Alcohol, Aspirin, Tylenol levels.
-HAGMA since resolved
Possible JULI ruled out initial Cr 1.1 near baseline 0.9
Hyponatremia
resolved
Hypokalemia
Hypophosphatemia
Hypomagnesemia
likely d/t diarrhea
monitor and replete as necessary
scheduled PO Magnesium discontinued possibly contributing to diarrhea (repleting with IV only)
GERD
-Continue PPI
DVT prophylaxis
-HSQ
I spent a total of 50 minutes with the patient or on the floor. More than 50% of this time involved counseling and coordination of care.
Anticipated Discharge: 24 - 48 hours
Subjective/Interval History
-
Date of Service: April 30, 2024
continues to report diarrhea and abd pain.
Objective Data
-
Labs:
Laboratory Results
04/30/24
06:00
WBC Pending
Hgb Pending
Hct Pending
Plt Count Pending
Sodium Pending
Potassium Pending
Chloride Pending
Carbon Dioxide Pending
BUN Pending
Creatinine Pending
Glucose Pending
Calcium Pending
Vital Signs:
Vital Signs
Temp Pulse Resp BP Pulse Ox
99.0 F 84 18 117/63 97
04/30/24 03:11 04/30/24 03:11 04/30/24 03:11 04/30/24 03:11 04/30/24 03:11
I&O
04/29/24 04/30/24 05/01/24
06:59 06:59 06:59
Intake Total 1940 / 1940 1080 / 1080
Output Total 500 / 500
Balance 1440 / 1440 1080 / 1080
[2024-04-30 07:38] VITALS: BP 143/97
[2024-04-30] MEDS: KLOR-CON 20 MEQ PO (08:00)
[2024-04-30] MEDS: QUESTRAN 4 GRAM PO ×3 (08:00→22:31)
[2024-04-30] MEDS: VITAMIN B1 100 MG PO ×2 (08:00→19:36)
[2024-04-30] MEDS: BENTYL 20 MG PO ×3 (08:00→19:36)
[2024-04-30] MEDS: PROTONIX 40 MG PO ×2 (08:00→19:36)
[2024-04-30] MEDS: FOLVITE 1 MG PO (08:00)
[2024-04-30] MEDS: VISBIOME 1 CAP PO (08:00)
[2024-04-30] MEDS: CARAFATE SUSPENSION 1 GM PO ×4 (08:01→19:36)
[2024-04-30] MEDS: MAGNESIUM OXIDE 500 MG PO (08:01)
[2024-04-30] MEDS: COMPAZINE 5 MG PO (08:01)
[2024-04-30] MEDS: HEPARIN 5000 UNITS SC ×3 (08:01→23:02)
[2024-04-30] MEDS: MORPHINE SULFATE 2 MG IV (08:18)
[2024-04-30 09:40] LABS: Hematocrit 29.1 % (37.0-47.0); Hemoglobin 9.8 g/dL (12.0-16.0); Mean Corp Hgb Conc. 33.7 g/dL (33.0-37.0); Mean Corpuscular Hgb 31.5 pg (27.0-31.0); Mean Corpuscular Volume 93.6 fL (81.0-99.0); Mean Platelet Volume 9.9 fL (7.4-10.4); Platelet Count 163 10^3/uL (130-400); Red Blood Cell Count 3.11 10^6/uL (4.20-5.40); Red Cell Dist. Width 18.2 % (11.5-14.5); White Blood Cell Count 5.3 10^3/uL (4.8-10.8)
--- NOTE | 2024-04-30 09:55 | CM ---
Chart reviewed and plan is to home when stable. Patient lives with friend.
Plan; Home with friend.
--- NOTE | 2024-04-30 10:22 | W.PN.GI.CBS2 ---
Addendum entered and electronically signed by Jacquie Alaniz MD 04/30/24 13:01:
I saw and examined the patient.
The OCCUPATIONAL THERAPIST'S ASSISTANT or PA's note was reviewed and I agree with the note.
Comment: Patient reports having 3 nonbloody loose bowel movements this morning. Reports nausea without vomiting. Has abdominal discomfort.
Electrolytes now in normal range
Stool studies negative. Agree with holding off on oral magnesium and switching to IV magnesium for repletion. Continue Questran 4 g every 8 hours.
History of esophagitis -continue pantoprazole 40 mg twice a day and sucralfate
Tolerating low-fat diet but continues to take Compazine.
Vicki Chaudhry looked into this, patient has history of anxiety and takes Ativan which she has not been getting on a regular basis and possibly compensating that by taking Compazine. Hospitalist made aware.
Will follow
Original Note:
Today's Communication / Plan
-
As per plan
Assessment / Plan
-
The pt is a 68yo female presents with a PMH significant for GERD, hiatal hernia, hypertension, alcohol abuse, accidental Tylenol OD managed with NAC, colitis, moderated severe esophagitis lower third esophagus with no bleeding 03/15/24, admission to
ICU end of February concerning of intestinal ischemia given severe acidosis, admission with suspected C. difficile infection (antigen positive toxin negative-> treated early February 2024),prior GI bleed secondary to peptic ulcer, IBS, suspected gout,
anxiety, who presented to the ER with complaints of nausea, vomiting, abd pain, and diarrhea, which we were asked to evaluate for. She has had numerous hospitalizations over the past year for reasons as mentioned above. She historically has had
non-compliance with medications resulting in re-hospitalization with recurrent GI symptoms. She did not take her home PPI and Questran as previously directed. With mild leukocytosis 12.9 and severe acidosis with NaBicarb 10, now improved. Lactic
acid elevated and has since normalized. Abdominal XR with no obstruction.
Problem list:
-recurrent n/v/d/abdominal pain
-Leukocytosis, resolved
-Hyponatremia, improving
-Hypokalemia
-History of prior GI bleed secondary to peptic ulcer disease
-History of LA grade D esophagitis
-Chronically dilated CBD status post cholecystectomy
-Severe acidosis, resolved
Other pertinent medical history:
-Hiatal hernia
-Hypertension
-History of alcohol abuse
-Accidental Tylenol overdose managed with NAC drip
-Colitis
-History of C. difficile
-IBS
-Gout
-Anxiety
Recommendations:
-Etiology of symptoms possibly refractory to her stopping her medications at home versus gastroenteritis versus gastroparesis versus IBS flare versus other.
- All stool studies negative.
-Continue medication regimen for GERD/esophagitis with PPI twice daily and Carafate ACHS.
-Continue Questran every 8 hours yesterday. Monitor for stool response. Patient Ox was DC after this am dose. Discussed with IM Attending.
-Continue with low residue/low fat, small frequent meals (gastroparesis diet). Patient tolerating well. Looks forward to meals.
-Continue with Bentyl 20 mg 3 times daily
-I emphasized she will need to make sure to continue her medications when going home given her recurrent hospitalizations and refractory symptoms are likely secondary to her stopping her medications.
-Consider eventual gastric emptying study on outpatient basis given prior EGD showing food in the stomach. Possibly contributing to her current symptoms. Noted will need to hold Bentyl 3 days prior to the test
-Eventual outpatient follow-up, to discuss colonoscopy then.
Subjective
Subjective
Date of Service: April 30, 2024
Patient states that she is feeling 'a little better today'. Eating well. Had 3 BMs this am. Loose and brown. Still with LLQ tenderness, but that is also improving. Awaiting electrolyte labs this am.
Objective
Data Reviewed
Laboratory Data:
Laboratory Results
04/30/24 08:56
Laboratory Results
Phosphorus 2.2 mg/dl (2.5-4.5) L 04/29/24 09:48
Magnesium 1.6 mg/dl (1.6-2.3) 04/29/24 09:48
Total Bilirubin 1.3 mg/dl (0.2-1.3) 04/25/24 14:14
AST 52 U/L (14-36) H 04/25/24 14:14
ALT 22 U/L (0-35) 04/25/24 14:14
Alkaline Phosphatase 105 U/L (38-126) 04/25/24 14:14
Lipase 65 U/L (23-300) 04/25/24 14:14
Vital Signs and I&O:
Vital Signs
Temp Pulse Resp BP Pulse Ox
99.2 F 105 18 143/97 98
04/30/24 07:38 04/30/24 07:38 04/30/24 07:38 04/30/24 07:38 04/30/24 07:38
I&O
04/29/24 04/30/24 05/01/24
06:59 06:59 06:59
Intake Total 1940 / 1940 1080 / 1080
Output Total 500 / 500
Balance 1440 / 1440 1080 / 1080
Physical Exam
Physical Exam
HEENT: Anicteric
Cardiology: Normal Sinus Rhythm
Pulmonary: Clear
GI: Soft, Non Distended, Tender (LLQ) and Normal Bowel Sounds
Extremities: No Edema
Neuro: Non Focal
[2024-04-30 11:09] LABS: Blood Urea Nitrogen 16 mg/dl (7-17); Calcium 9.4 mg/dl (8.4-10.2); Carbon Dioxide 25 mmol/L (22-30); Chloride 101 mmol/L (98-107); Estimated Creatinine Clearance 52 ml/min; Glucose 127 mg/dl (70-99); Magnesium 1.8 mg/dl (1.6-2.3); Phosphorus 3.9 mg/dl (2.5-4.5); Potassium 4.5 mmol/L (3.5-5.1); Sodium 135 mmol/L (135-145); eGFR > 60.00
[2024-04-30 12:19] VITALS: BP 112/75
[2024-04-30] MEDS: MAGNESIUM SULFATE 50 IV (12:32)
[2024-04-30] MEDS: DILAUDID 0.5 MG IV ×2 (14:05→19:36)
[2024-04-30 15:52] VITALS: BP 124/81
[2024-04-30 19:00] VITALS: BP 113/70
[2024-04-30] MEDS: ANUSOL HC RECTAL (19:36)
[2024-04-30] MEDS: FLUSH (NSS) 2 FLUSH IV (19:37)
[2024-04-30] MEDS: ATIVAN 0.5 MG PO (22:31)
[2024-04-30 23:00] VITALS: BP 124/76
[2024-05-01] MEDS: FLUSH (NSS) 3 FLUSH IV (00:01)
[2024-05-01] MEDS: DILAUDID 0.5 MG IV ×5 (00:01→22:33)
[2024-05-01 03:00] VITALS: BP 141/67
--- NOTE | 2024-05-01 07:14 | W.PN.HOSP.TC ---
Today's Communication/Plan
-
imodium prn
pain control
antiemetic
Magnesium supplementation
Assessment / Plan
Assessment / Plan
Physical Exam
General: NAD, resting comfortably in bed
HEENT: Scleral anicteric Dry mucous membranes
Neck: No JVD
Resp: CTA bilateral
Cardio: Normal S1-S2 no murmurs
Abd: Soft epigastric tenderness nondistended bowel sounds active
Ext: No peripheral pitting edema
Neuro: AAOx3
Psych: Calm
68F GERD Hiatal Hernia HTN ETOH abuse Colitis Esophagitis/PUD IBS Gout Anxiety here for evaluation Esophagitis vs Gastritis w associate HAGMA likely d/t diarrhea/dehydration
Abdominal pain nausea vomiting possibly related to esophagitis versus gastritis. Low clinical suspicion for cardiac troponin negative and EKG nonischemic.
-IV fluids
-PPI
-Carafate
-Clear liquid diet advanced to low residue
-imodium prn
-GI consult appreciated
-pain control
High anion gap metabolic acidosis with a delta gap 18, with a delta ratio of 1.3. AG. Possibly related to lactate/dehydration. Without osmolar gap therefore, unlikely toxic alcohol
-IV fluids with lactated Ringer's
-VBG notes metabolic alkalosis compensated with respiratory acidosis
-neg Alcohol, Aspirin, Tylenol levels.
-HAGMA since resolved
Possible JULI ruled out initial Cr 1.1 near baseline 0.9
Hyponatremia
resolved
Hypokalemia
Hypophosphatemia
Hypomagnesemia
-likely d/t diarrhea
-monitor and replete as necessary
-scheduled PO Magnesium discontinued possibly contributing to diarrhea (repleting with IV only)
GERD
-Continue PPI
DVT prophylaxis
-HSQ
I spent a total of 50 minutes with the patient or on the floor. More than 50% of this time involved counseling and coordination of care.
Anticipated Discharge: 24 - 48 hours
Subjective/Interval History
-
Date of Service: May 01, 2024
Objective Data
-
Labs:
Laboratory Results
05/01/24
06:00
WBC Pending
Hgb Pending
Hct Pending
Plt Count Pending
Sodium Pending
Potassium Pending
Chloride Pending
Carbon Dioxide Pending
BUN Pending
Creatinine Pending
Glucose Pending
Calcium Pending
Vital Signs:
Vital Signs
Temp Pulse Resp BP Pulse Ox
98.2 F 73 19 141/67 98
05/01/24 03:00 05/01/24 03:00 05/01/24 03:00 05/01/24 03:00 05/01/24 03:00
I&O
04/30/24 05/01/24 05/02/24
06:59 06:59 06:59
Intake Total 1080 / 1080 1010 / 1010
Balance 1080 / 1080 1010 / 1010
[2024-05-01 08:12] VITALS: BP 146/90
[2024-05-01] MEDS: CARAFATE SUSPENSION 1 GM PO ×4 (08:50→19:45)
[2024-05-01] MEDS: FOLVITE 1 MG PO (08:50)
[2024-05-01] MEDS: COMPAZINE 5 MG PO (08:50)
[2024-05-01] MEDS: VISBIOME 1 CAP PO (08:50)
[2024-05-01] MEDS: HEPARIN 5000 UNITS SC ×3 (08:50→22:51)
[2024-05-01] MEDS: QUESTRAN 4 GRAM PO ×3 (08:50→22:51)
[2024-05-01] MEDS: VITAMIN B1 100 MG PO ×2 (08:50→19:45)
[2024-05-01] MEDS: PROTONIX 40 MG PO ×2 (08:50→19:45)
[2024-05-01] MEDS: BENTYL 20 MG PO ×3 (08:51→19:45)
[2024-05-01 10:04] LABS: Hemoglobin 9.8 g/dL (12.0-16.0); Mean Corpuscular Hgb 32.6 pg (27.0-31.0); Mean Platelet Volume 9.9 fL (7.4-10.4); Platelet Count 168 10^3/uL (130-400); Red Blood Cell Count 3.01 10^6/uL (4.20-5.40); Red Cell Dist. Width 17.8 % (11.5-14.5); White Blood Cell Count 4.7 10^3/uL (4.8-10.8)
--- NOTE | 2024-05-01 11:32 | CM ---
Chart reviewed and plan is to home when stable.
Plan; Home when stable, no needs.
[2024-05-01 12:10] LABS: Blood Urea Nitrogen 17 mg/dl (7-17); Calcium 9.9 mg/dl (8.4-10.2); Carbon Dioxide 18 mmol/L (22-30); Chloride 106 mmol/L (98-107); Estimated Creatinine Clearance 52 ml/min; Glucose 98 mg/dl (70-99); Magnesium 1.7 mg/dl (1.6-2.3); Phosphorus 4.2 mg/dl (2.5-4.5); Potassium 4.4 mmol/L (3.5-5.1); Sodium 134 mmol/L (135-145); eGFR > 60.00
[2024-05-01 12:34] VITALS: BP 109/68
--- NOTE | 2024-05-01 12:38 | W.PN.GI.CBS2 ---
Today's Communication / Plan
-
-Etiology of symptoms possibly refractory to her stopping her medications at home versus gastroenteritis versus gastroparesis versus IBS flare versus other.
- All stool studies negative.
-Continue medication regimen for GERD/esophagitis with PPI twice daily and Carafate ACHS.
-Continue Questran every 8 hours yesterday.
-less stool today off mag supplement
-Continue with low residue/low fat, small frequent meals (gastroparesis diet). Patient tolerating well.
some abdominal pain which is chronic per notes
-Continue with Bentyl 20 mg 3 times daily
-stressed again need to make sure to continue her medications when going home given her recurrent hospitalizations and refractory symptoms are likely secondary to her stopping her medications
-Consider eventual gastric emptying study on outpatient basis given prior EGD showing food in the stomach. Possibly contributing to her current symptoms. Noted will need to hold Bentyl 3 days prior to the test
-Eventual outpatient follow-up, to discuss colonoscopy as last 12/2023 with multiple polyps and poor prep. -- I sent message to office to arrange
will sign off call with questions
Assessment / Plan
-
The pt is a 68yo female presents with a PMH significant for GERD, hiatal hernia, hypertension, alcohol abuse, accidental Tylenol OD managed with NAC, colitis, moderated severe esophagitis lower third esophagus with no bleeding 03/15/24, admission to
ICU end of February concerning of intestinal ischemia given severe acidosis, admission with suspected C. difficile infection (antigen positive toxin negative-> treated early February 2024),prior GI bleed secondary to peptic ulcer, IBS, suspected gout,
anxiety, who presented to the ER with complaints of nausea, vomiting, abd pain, and diarrhea, which we were asked to evaluate for. She has had numerous hospitalizations over the past year for reasons as mentioned above. She historically has had
non-compliance with medications resulting in re-hospitalization with recurrent GI symptoms. She did not take her home PPI and Questran as previously directed. With mild leukocytosis 12.9 and severe acidosis with NaBicarb 10, now improved. Lactic
acid elevated and has since normalized. Abdominal XR with no obstruction.
Problem list:
-recurrent n/v/d/abdominal pain
-Leukocytosis, resolved
-Hyponatremia, improving
-Hypokalemia
-History of prior GI bleed secondary to peptic ulcer disease
-History of LA grade D esophagitis
-Chronically dilated CBD status post cholecystectomy
-Severe acidosis, resolved
Other pertinent medical history:
-Hiatal hernia
-Hypertension
-History of alcohol abuse
-Accidental Tylenol overdose managed with NAC drip
-Colitis
-History of C. difficile
-IBS
-Gout
-Anxiety
Recommendations:
-Etiology of symptoms possibly refractory to her stopping her medications at home versus gastroenteritis versus gastroparesis versus IBS flare versus other.
- All stool studies negative.
-Continue medication regimen for GERD/esophagitis with PPI twice daily and Carafate ACHS.
-Continue Questran every 8 hours yesterday.
-less stool today off mag supplement
-Continue with low residue/low fat, small frequent meals (gastroparesis diet). Patient tolerating well.
some abdominal pain which is chronic per notes
-Continue with Bentyl 20 mg 3 times daily
-stressed again need to make sure to continue her medications when going home given her recurrent hospitalizations and refractory symptoms are likely secondary to her stopping her medications
-Consider eventual gastric emptying study on outpatient basis given prior EGD showing food in the stomach. Possibly contributing to her current symptoms. Noted will need to hold Bentyl 3 days prior to the test
-Eventual outpatient follow-up, to discuss colonoscopy as last 12/2023 with multiple polyps and poor prep. -- I sent message to office to arrange
will sign off call with questions
Subjective
Subjective
Date of Service: May 01, 2024
04/30 brown stool only small amount stool today on low residue diet some abdominal pain but some chronic pain per notes
Objective
Data Reviewed
Laboratory Data:
Laboratory Results
05/01/24 09:22
05/01/24 09:22
Laboratory Results
Phosphorus 4.2 mg/dl (2.5-4.5) 05/01/24 09:22
Magnesium 1.7 mg/dl (1.6-2.3) 05/01/24 09:22
Total Bilirubin 1.3 mg/dl (0.2-1.3) 04/25/24 14:14
AST 52 U/L (14-36) H 04/25/24 14:14
ALT 22 U/L (0-35) 04/25/24 14:14
Alkaline Phosphatase 105 U/L (38-126) 04/25/24 14:14
Lipase 65 U/L (23-300) 04/25/24 14:14
Vital Signs and I&O:
Vital Signs
Temp Pulse Resp BP Pulse Ox
98.5 F 78 20 109/68 96
05/01/24 12:34 05/01/24 12:34 05/01/24 12:34 05/01/24 12:34 05/01/24 12:34
I&O
04/30/24 05/01/24 05/02/24
06:59 06:59 06:59
Intake Total 1080 / 1080 1010 / 1010
Balance 1080 / 1080 1010 / 1010
Physical Exam
Physical Exam
HEENT: Anicteric and Moist mucous membranes
Cardiology: Normal Sinus Rhythm
Pulmonary: Clear
GI: Soft, Non Distended and Tender (diffuse tenderness )
Extremities: No Edema
Neuro: Non Focal
[2024-05-01] MEDS: MAGNESIUM SULFATE 50 IV (13:14)
[2024-05-01 16:30] VITALS: BP 127/83
[2024-05-01 19:25] VITALS: BP 128/70
[2024-05-01] MEDS: ANUSOL HC RECTAL (19:45)
[2024-05-01] MEDS: ATIVAN 0.5 MG PO (22:51)
[2024-05-01 23:34] VITALS: BP 124/70
[2024-05-02] MEDS: DILAUDID 0.5 MG IV ×6 (02:28→23:20)
[2024-05-02] MEDS: FLUSH (NSS) 4 FLUSH IV ×2 (02:28→06:22)
--- NOTE | 2024-05-02 02:38 | PTCARENOTE ---
abd pain medicated with Dilaudid- no nausea this shift-
[2024-05-02 03:44] VITALS: BP 101/57
[2024-05-02] MEDS: COMPAZINE 5 MG PO (06:27)
[2024-05-02 06:58] LABS: Hematocrit 24.4 % (37.0-47.0); Hemoglobin 8.4 g/dL (12.0-16.0); Mean Corp Hgb Conc. 34.4 g/dL (33.0-37.0); Mean Corpuscular Hgb 31.9 pg (27.0-31.0); Mean Corpuscular Volume 92.8 fL (81.0-99.0); Platelet Count 186 10^3/uL (130-400); Red Blood Cell Count 2.63 10^6/uL (4.20-5.40); Red Cell Dist. Width 17.6 % (11.5-14.5); White Blood Cell Count 7.4 10^3/uL (4.8-10.8)
[2024-05-02 07:00] VITALS: BP 118/54
--- NOTE | 2024-05-02 07:11 | W.PN.HOSP.TC ---
Today's Communication/Plan
-
imodium prn
pain control
antiemetic
Magnesium supplementation
switch hep to SCDs, injections likely exacerbating abd pain
Assessment / Plan
Assessment / Plan
Physical Exam
General: NAD, resting comfortably in bed
HEENT: Scleral anicteric Dry mucous membranes
Neck: No JVD
Resp: CTA bilateral
Cardio: Normal S1-S2 no murmurs
Abd: Soft epigastric tenderness nondistended bowel sounds active
Ext: No peripheral pitting edema
Neuro: AAOx3
Psych: Calm
68F GERD Hiatal Hernia HTN ETOH abuse Colitis Esophagitis/PUD IBS Gout Anxiety here for evaluation Esophagitis vs Gastritis w associate HAGMA likely d/t diarrhea/dehydration
Abdominal pain nausea vomiting possibly related to esophagitis versus gastritis. Low clinical suspicion for cardiac troponin negative and EKG nonischemic.
-IV fluids
-PPI
-Carafate
-low residue diet
-imodium prn
-GI consult appreciated
-pain control
High anion gap metabolic acidosis with a delta gap 18, with a delta ratio of 1.3. AG. Possibly related to lactate/dehydration. Without osmolar gap therefore, unlikely toxic alcohol
-IV fluids with lactated Ringer's
-VBG notes metabolic alkalosis compensated with respiratory acidosis
-neg Alcohol, Aspirin, Tylenol levels.
-HAGMA since resolved
Hyponatremia mild
monitor
Hypokalemia
Hypophosphatemia
Hypomagnesemia
-likely d/t diarrhea
-monitor and replete as necessary
-scheduled PO Magnesium discontinued possibly contributing to diarrhea (repleting with IV only)
GERD
-Continue PPI
DVT prophylaxis
-HSQ switched to SCDs d/t concern injections exacerbating abd pain
I spent a total of 50 minutes with the patient or on the floor. More than 50% of this time involved counseling and coordination of care.
Anticipated Discharge: 24 - 48 hours
Subjective/Interval History
-
Date of Service: May 02, 2024
Reports improvement in symptoms. Fewer episodes of diarrhea. Notes abd pain corresponding to sites of hep injections for dvt ppx.
Objective Data
-
Labs:
Laboratory Results
05/02/24
06:23
WBC 7.4
Hgb 8.4 L
Hct 24.4 L
Plt Count 186
Sodium Pending
Potassium Pending
Chloride Pending
Carbon Dioxide Pending
BUN Pending
Creatinine Pending
Glucose Pending
Calcium Pending
Vital Signs:
Vital Signs
Temp Pulse Resp BP Pulse Ox
98.7 F 88 16 101/57 96
05/02/24 03:44 05/02/24 03:44 05/02/24 03:44 05/02/24 03:44 05/02/24 03:44
I&O
05/01/24 05/02/24 05/03/24
06:59 06:59 06:59
Intake Total 1010 / 1010 1310 / 1310
Balance 1010 / 1010 1310 / 1310
[2024-05-02 07:13] LABS: Blood Urea Nitrogen 21 mg/dl (7-17); Calcium 9.5 mg/dl (8.4-10.2); Carbon Dioxide 22 mmol/L (22-30); Chloride 105 mmol/L (98-107); Estimated Creatinine Clearance 52 ml/min; Glucose 97 mg/dl (70-99); Magnesium 1.5 mg/dl (1.6-2.3); Phosphorus 3.5 mg/dl (2.5-4.5); Potassium 3.7 mmol/L (3.5-5.1); Sodium 134 mmol/L (135-145); eGFR > 60.00
[2024-05-02] MEDS: MAGNESIUM SULFATE 100 IV (10:36)
[2024-05-02 10:40] LABS: Iron 54 ug/dl (37-170)
[2024-05-02 10:50] LABS: Percent Saturation 18 % (20-50); Total Iron Binding Capacity 297 ug/dl (265-497)
[2024-05-02] MEDS: CARAFATE SUSPENSION PO (10:50)
[2024-05-02] MEDS: CARAFATE SUSPENSION 1 GM PO ×3 (10:50→20:59)
[2024-05-02] MEDS: QUESTRAN 4 GRAM PO ×3 (10:52→23:21)
[2024-05-02] MEDS: FOLVITE 1 MG PO (10:53)
[2024-05-02] MEDS: VISBIOME 1 CAP PO (10:53)
[2024-05-02] MEDS: VITAMIN B1 100 MG PO ×2 (10:53→20:59)
[2024-05-02] MEDS: BENTYL 20 MG PO ×3 (10:53→20:59)
[2024-05-02] MEDS: PROTONIX 40 MG PO ×2 (10:53→20:59)
[2024-05-02] MEDS: HEPARIN SC (10:54)
[2024-05-02 12:21] LABS: Vitamin B12 284 pg/ml (239-931)
[2024-05-02] MEDS: KLOR-CON 20 MEQ PO (12:53)
[2024-05-02] MEDS: VITAMIN B-12 1000 MCG PO (13:18)
[2024-05-02 16:18] VITALS: BP 111/62
[2024-05-02] MEDS: COMPAZINE 5 MG IV (18:24)
[2024-05-02 19:37] VITALS: BP 128/71
[2024-05-02] MEDS: ANUSOL HC RECTAL (20:52)
[2024-05-02 23:21] VITALS: BP 102/58
[2024-05-03 03:03] VITALS: BP 112/62
[2024-05-03] MEDS: DILAUDID 0.5 MG IV ×5 (03:57→20:27)
--- NOTE | 2024-05-03 07:53 | W.PN.HOSP.TC ---
Today's Communication/Plan
-
imodium prn
pain control
antiemetic
IV Magnesium supplementation
B12 supplementation
Assessment / Plan
Assessment / Plan
Physical Exam
General: NAD, resting comfortably in bed
HEENT: Scleral anicteric Dry mucous membranes
Neck: No JVD
Resp: CTA bilateral
Cardio: Normal S1-S2 no murmurs
Abd: Soft epigastric tenderness nondistended bowel sounds active
Ext: No peripheral pitting edema
Neuro: AAOx3
Psych: Calm
68F GERD Hiatal Hernia HTN ETOH abuse Colitis Esophagitis/PUD IBS Gout Anxiety here for evaluation Esophagitis vs Gastritis w associate HAGMA likely d/t diarrhea/dehydration
Abdominal pain nausea vomiting possibly related to esophagitis versus gastritis. Low clinical suspicion for cardiac troponin negative and EKG nonischemic.
-IV fluids
-PPI
-Carafate
-low residue diet
-imodium prn
-GI consult appreciated
-pain control
High anion gap metabolic acidosis with a delta gap 18, with a delta ratio of 1.3. AG. Possibly related to lactate/dehydration. Without osmolar gap therefore, unlikely toxic alcohol
-IV fluids with lactated Ringer's
-VBG notes metabolic alkalosis compensated with respiratory acidosis
-neg Alcohol, Aspirin, Tylenol levels.
-HAGMA since resolved
Hyponatremia mild
monitor
Hypokalemia
Hypophosphatemia
Hypomagnesemia
-likely d/t diarrhea
-monitor and replete as necessary
-scheduled PO Magnesium discontinued possibly contributing to diarrhea (repleting with IV only)
Vitamin B12 deficiency
Supplementation started, continue
GERD
-Continue PPI
DVT prophylaxis
-HSQ switched to SCDs d/t concern injections exacerbating abd pain (pain since improved)
I spent a total of 50 minutes with the patient or on the floor. More than 50% of this time involved counseling and coordination of care.
Anticipated Discharge: 24 - 48 hours
Subjective/Interval History
-
Date of Service: May 03, 2024
Symptoms improving. Diarrhea resolving.
Objective Data
-
Labs:
Laboratory Results
05/03/24
06:00
WBC Pending
Hgb Pending
Hct Pending
Plt Count Pending
Sodium Pending
Potassium Pending
Chloride Pending
Carbon Dioxide Pending
BUN Pending
Creatinine Pending
Glucose Pending
Calcium Pending
Total Bilirubin Pending
AST Pending
ALT Pending
Alkaline Phosphatase Pending
Vital Signs:
Vital Signs
Temp Pulse Resp BP Pulse Ox
98.2 F 71 16 112/62 96
05/03/24 03:03 05/03/24 03:03 05/03/24 03:03 05/03/24 03:03 05/03/24 03:03
I&O
05/02/24 05/03/24 05/04/24
06:59 06:59 06:59
Intake Total 1310 / 1310 240 / 240
Balance 1310 / 1310 240 / 240
[2024-05-03 07:56] VITALS: BP 124/76
[2024-05-03] MEDS: FOLVITE 1 MG PO (08:03)
[2024-05-03] MEDS: VITAMIN B1 100 MG PO ×2 (08:03→20:26)
[2024-05-03] MEDS: CARAFATE SUSPENSION 1 GM PO ×4 (08:03→20:26)
[2024-05-03] MEDS: VISBIOME 1 CAP PO (08:03)
[2024-05-03] MEDS: BENTYL 20 MG PO ×3 (08:03→20:26)
[2024-05-03] MEDS: VITAMIN B-12 1000 MCG PO (08:03)
[2024-05-03] MEDS: PROTONIX 40 MG PO ×2 (08:03→20:26)
[2024-05-03] MEDS: QUESTRAN 4 GRAM PO ×3 (08:04→23:09)
[2024-05-03] MEDS: KLOR-CON 20 MEQ PO (08:04)
[2024-05-03] MEDS: COMPAZINE 5 MG PO (08:07)
[2024-05-03 09:07] LABS: Hematocrit 26.8 % (37.0-47.0); Hemoglobin 8.9 g/dL (12.0-16.0); Mean Corp Hgb Conc. 33.2 g/dL (33.0-37.0); Mean Corpuscular Hgb 31.8 pg (27.0-31.0); Mean Corpuscular Volume 95.7 fL (81.0-99.0); Mean Platelet Volume 9.5 fL (7.4-10.4); Platelet Count 255 10^3/uL (130-400); Red Cell Dist. Width 17.5 % (11.5-14.5); White Blood Cell Count 5.3 10^3/uL (4.8-10.8)
[2024-05-03 09:10] LABS: ALT (SGPT) 24 U/L (0-35); AST (SGOT) 31 U/L (14-36); Albumin 3.7 g/dl (3.5-5.0); Alkaline Phosphatase 68 U/L (38-126); Blood Urea Nitrogen 17 mg/dl (7-17); Calcium 9.5 mg/dl (8.4-10.2); Carbon Dioxide 23 mmol/L (22-30); Chloride 106 mmol/L (98-107); Estimated Creatinine Clearance 47 ml/min; Glucose 150 mg/dl (70-99); Magnesium 1.6 mg/dl (1.6-2.3); Phosphorus 4.3 mg/dl (2.5-4.5); Sodium 135 mmol/L (135-145); Total Bilirubin 0.4 mg/dl (0.2-1.3); Total Protein 6.1 g/dl (6.3-8.2); eGFR > 60.00
[2024-05-03 11:20] VITALS: BP 105/57
[2024-05-03] MEDS: MAGNESIUM SULFATE 100 IV (12:26)
[2024-05-03 15:00] VITALS: BP 93/54
[2024-05-03 19:30] VITALS: BP 111/64
[2024-05-03] MEDS: ANUSOL HC RECTAL (20:43)
[2024-05-03] MEDS: ATIVAN 0.5 MG PO (22:57)
[2024-05-03 23:35] VITALS: BP 117/59
[2024-05-04] MEDS: DILAUDID 0.5 MG IV ×3 (01:40→10:01)
[2024-05-04] MEDS: COMPAZINE 5 MG PO ×2 (01:44→08:19)
[2024-05-04 03:30] VITALS: BP 104/54
[2024-05-04 07:36] VITALS: BP 107/68
[2024-05-04] MEDS: CARAFATE SUSPENSION 1 GM PO ×2 (08:19→11:07)
[2024-05-04] MEDS: KLOR-CON 20 MEQ PO (08:19)
[2024-05-04] MEDS: VITAMIN B1 100 MG PO (08:19)
[2024-05-04] MEDS: VISBIOME 1 CAP PO (08:19)
[2024-05-04] MEDS: BENTYL 20 MG PO (08:19)
[2024-05-04] MEDS: DESENEX/MITRAZOL/ZEASORB 1 APPLIC TOPICAL (08:19)
[2024-05-04] MEDS: VITAMIN B-12 1000 MCG PO (08:20)
[2024-05-04] MEDS: PROTONIX 40 MG PO (08:20)
[2024-05-04] MEDS: FOLVITE 1 MG PO (08:20)
[2024-05-04] MEDS: QUESTRAN 4 GRAM PO (08:20)
[2024-05-04 09:16] LABS: Hematocrit 29.5 % (37.0-47.0); Hemoglobin 9.8 g/dL (12.0-16.0); Mean Corp Hgb Conc. 33.2 g/dL (33.0-37.0); Mean Corpuscular Hgb 32.1 pg (27.0-31.0); Mean Corpuscular Volume 96.7 fL (81.0-99.0); Mean Platelet Volume 9.9 fL (7.4-10.4); Platelet Count 352 10^3/uL (130-400); Red Blood Cell Count 3.05 10^6/uL (4.20-5.40); Red Cell Dist. Width 17.2 % (11.5-14.5); White Blood Cell Count 6.1 10^3/uL (4.8-10.8)
[2024-05-04 09:37] LABS: ALT (SGPT) 25 U/L (0-35); AST (SGOT) 32 U/L (14-36); Alkaline Phosphatase 89 U/L (38-126); Blood Urea Nitrogen 17 mg/dl (7-17); Carbon Dioxide 20 mmol/L (22-30); Chloride 105 mmol/L (98-107); Estimated Creatinine Clearance 52 ml/min; Glucose 97 mg/dl (70-99); Magnesium 1.7 mg/dl (1.6-2.3); Phosphorus 4.5 mg/dl (2.5-4.5); Potassium 4.4 mmol/L (3.5-5.1); Sodium 135 mmol/L (135-145); Total Bilirubin 0.4 mg/dl (0.2-1.3); Total Protein 6.6 g/dl (6.3-8.2); eGFR > 60.00
--- NOTE | 2024-05-04 10:35 | CM ---
Addendum entered by Melinda Mckeon 05/04/24 14:59:
Brianda will order an [employer] to transport patient to home.
Original Note:
Chart reviewed and plan is to home when stable, patient lives with friend.
Plan: Home when stable.
[2024-05-04 11:08] VITALS: BP 97/58
--- NOTE | 2024-05-04 14:48 | W.PN.HOSP.TC ---
Today's Communication/Plan
-
Patietn to be discharged with new medications. Patient will follow up with GI specialist in the outpatient setting.
Assessment / Plan
Assessment / Plan
Assessment: 68y Female with a history of GERD, hiatal hernia, hypertension, alcohol abuse, accidental tylenol OD, IBS presents with increased abdominal pain, nausea, and vomiting possibly due to exacerbation of gastroparesis. Patient's symptoms have
been improving since her admission and she is to be discharged with new medications today.
Abdominal pain nausea vomiting possibly related to exacerbation of gastroparesis
-IV fluids given
-low residue diet recommended for patient
-imodium prn as needed at home
-GI consult appreciated
-Patient recommended gastric emptying study as outpatient. Patient to be evaluated as outpatient to also discuss colonoscopy.
-Patient to continue with Bentyl 20mg TID
-Patient to continue Questran, PPI BID, and Carafate ACHS
High anion gap metabolic acidosis with a delta gap 18, with a delta ratio of 1.3. AG. Possibly related to lactate/dehydration. Without osmolar gap therefore, unlikely toxic alcohol.
-HAGMA since resolved
-No electrolyte abnormalities noted today
Hyponatremia mild
-Resolved
Hypokalemia
-Resolved
Hypophosphatemia
-Resolved
Hypomagnesemia
-Resolved, continue repletion at home
Vitamin B12 deficiency
Supplementation started, continue at home
GERD
-Continue PPI treatment as stated above
DVT prophylaxis
-HSQ switched to SCDs d/t concern injections exacerbating abd pain (pain since improved)
Anticipated Discharge: Today
Subjective/Interval History
-
Date of Service: May 04, 2024
Patient was feeling a bit nauseated overnight but says she feels much better now. Patient still has diffuse abdominal pain but it has been lessening in severity.
Objective Data
-
Labs:
Laboratory Results
05/04/24
07:39
WBC 6.1
Hgb 9.8 L
Hct 29.5 L
Plt Count 352 D
Sodium 135
Potassium 4.4
Chloride 105
Carbon Dioxide 20 L
BUN 17
Creatinine 0.9
Glucose 97
Calcium 10.0
Total Bilirubin 0.4
AST 32
ALT 25
Alkaline Phosphatase 89
Vital Signs:
Vital Signs
Temp Pulse Resp BP Pulse Ox
98.1 F 82 18 97/58 100
05/04/24 11:08 05/04/24 11:08 05/04/24 11:08 05/04/24 11:08 05/04/24 11:08
I&O
05/03/24 05/04/24 05/05/24
06:59 06:59 06:59
Intake Total 240 / 240 1080 / 1080
Balance 240 / 240 1080 / 1080
Review of Systems
-
History Source: Patient
Constitutional: Denies Fever, No Appetite, Fatigue, Chills or Weakness
Respiratory: Denies Cough or Trouble Breathing
Cardiac: Denies Chest Pain, Diaphoresis, Palpitations or Syncope
Abdomen/GI: Reports Abdominal Pain and Nausea; Denies Vomiting or Diarrhea
Musculoskeletal: Reports No Symptoms
Skin: Reports No Symptoms
Neuro: Reports No Symptoms
Physical Exam
-
General: Well Developed, Well Nourished and No Apparent Distress
Respiratory: Clear to Auscultation and Non Labored Respirations
Cardiac: Regular Rhythm and S1/S2
GI: Soft, Nondistended and Tender
Musculoskeletal: No Clubbing, No Cyanosis and No Edema
Skin: Warm and Dry
Neuro: Awake, Alert, Oriented and AO x 3
Psych: Calm
Data Reviewed
-
Labs: Labs Reviewed by me, Discussed with Physician and Discussed with Patient
[2024-05-04 15:44] VITALS: BP 106/72
--- NOTE | 2024-05-04 15:52 | W.DCSUMMARY ---
Discharge Summary
Discharge Data
Date of Admission: 04/25/24
Date of Discharge: 05/04/24
-
Pending Results: No
Hospital Course
Admission Diagnosis- Abdominal pain nausea vomiting possibly related to esophagitis versus gastritis. Low clinical suspicion for cardiac troponin negative and EKG nonischemic
Conditions Prior to Admission-
GERD
HTN
Anxiety
Hiatal Hernia
IBS
Hospital Course-
68-year-old female presented to the ED on 04/25 with abdominal pain and associated nausea and vomiting. Patient's pain had started that morning and she had been discharged from the hospital the week before for the same reason. She has a history of
recurrent abdominal pain she says that it usually happens when she is at home and she does not always go to the hospital for it. The epigastric pain started in the left epigastrium and radiated to the right epigastrium. She described it as sharp
and that nothing made it better or worse. Patient has had many CT scans for this condition in the past year so no CT scan was done. Patient was admitted because she had a high anion gap metabolic acidosis with a lactate level of 2.7. Patient was
placed on IV fluids PPIs Carafate given a clear liquid diet and GI was consulted. For her high anion gap metabolic acidosis with a delta gap of 18 she was given IV fluids with lactated Ringer's and VBG was obtained. Alcohol level aspirin level and
Tylenol levels were all checked. Patient has slight JULI as her creatinine was a bit elevated however it was improved after given IV fluids. She also had hyponatremia due to hypovolemia with a serum osmole of 272 she was continued to be given IV
fluids.
Patient's abdominal x-ray showed no obstruction but the labs continue to show significant for lactic acidosis however it was trending down from 2.62. Patient's hyponatremia was resolved alongside her hypokalemia which was thought to be due to her
diarrhea. VBG shows metabolic alkalosis compensated with respiratory acidosis. High anion gap metabolic acidosis resolved at this time.
Patient continued to have ongoing diarrhea. C. difficile was checked and was negative and her Questran was increased to every 8 hours. Her Bentyl was also increased to 20 and she was started on Compazine for her ongoing nausea. At this time
patient was recommended to get outpatient gastric emptying study and was also counseled about her medical noncompliance. Patient's was continued to be on antiemetic therapy and also electrolyte repletion including magnesium and phosphorus. She was
also under pain control. Patient continued to be monitored for several days with continued management of her abdominal pain nausea and vomiting. Patient was switched to low residue low-fat diet she continued to have nausea.
Patient was held off on oral magnesium and switch to IV magnesium because of her ongoing diarrhea. Patient continue taking pantoprazole and sucralfate for her history of esophagitis. Patient continued to have abdominal pain which is chronic and GI
signed off with eventual outpatient follow-up discussed. Patient switch from HSQ to SCDs for mechanical DVT prophylaxis as injections were exacerbating her abdominal pain. Continues taking her other medications.
Patient was found to be depleted on B12. B12 supplementation was started. Patient was discharged with directions to see GI in the outpatient setting for potential gastric emptying study alongside discussion of her colonoscopy results.
Conditions prior to admission were treated with home medications
Patient given new prescription for bisacodyl 10 mg suppository as needed.
Patient given prescription for vitamin B12 supplements
Patient given prescription for dicyclomine 20 mg
Discharge Plan
-
Patient Disposition: Home (Routine Discharge)
Discharge Diagnosis/Procedures: Abdominal pain nausea vomiting possibly related to gastroparesis vs gastroenteritis vs IBS flare
Condition: Fair
Diet: Low Residue
Activity: As tolerated
Driving Restrictions: As prior to admission
Bathing Restrictions: None
Activity Restrictions/Additional Instructions:
Follow up with GI doctor in outpatient setting to discuss colonoscopy and gastric emptying study. Needs to continue taking medication as reccurent hospitalization and refractory symptoms likely secondary to stopping medications. Stressed patient to
avoid alcohol.
Referrals:
Krysta Griffin MD [Active] - (call to arrange GI follow up. )
Ishaan Ames DO [Family Provider] -
Additional Discharge Medication Instructions: Use Bisacodyl 10mg suppository as needed. Continue supplementation of B12. Take Dicyclomine 20mg three times a day.
Prescriptions:
New
cyanocobalamin (vitamin B-12) 1,000 mcg Tablet
1,000 mcg PO DAILY 30 Days Qty: 30 2RF
dicyclomine 20 mg Tablet
20 mg PO TID 30 Days Qty: 90 0RF
bisacodyl 10 mg Suppository
10 mg [place] [id number] 30 Days Qty: 30 0RF
Continued
lorazepam 0.5 mg Tablet
0.5 mg PO HSPRN PRN (Reason: anxiety/sleep) Qty: 7 0RF
Patient Comments:
04/07/2024: last filled on 03/29/24, 7 tabs for 7 days from [facility]
pantoprazole 40 mg tablet,delayed release (DR/EC)
40 mg PO BID Qty: 120 0RF
hydrocortisone acetate 25 mg Suppository
25 mg [place] HS Qty: 12 0RF
sucralfate 100 mg/mL Suspension
1 g PO ACHS Qty: 414 0RF
folic acid 1 mg Tablet
1 mg PO DAILY Qty: 30 0RF
cholestyramine (with sugar) 4 gram Powder In Packet
1 ea PO Q8H Qty: 60 0RF
thiamine HCl (vitamin B1) 100 mg Tablet
100 mg PO BID Qty: 60 0RF
potassium chloride 20 mEq tablet extended release
20 meq PO DAILY Qty: 30 0RF
magnesium oxide 500 mg capsule
500 mg PO BID Qty: 60 0RF
Discontinued
dicyclomine 10 mg Capsule
10 mg PO BID Qty: 60 0RF
Discharge Orders:
Discharge Patient (As Directed); Ordered 05/04/24
Ordered By: Donn Krishnan
Discharge Date and Time
Print Language: FRENCH
== END 2024-05-04 16:44 | disposition home or self-care (01) | DRG 392 ==
LOC: 4 WEST ACU 18:02
PROVIDERS: Emergency Medicine; Internal Medicine; ADMITTING PHYSICIAN Hospitalist; CONSULT PHYSICIAN Internal Medicine Gastroenterology; EMERGENCY PHYSICIAN Emergency Medicine; FAMILY PHYSICIAN Family Medicine
DX: K21.00 Gastro-esophageal reflux disease with esophagitis, without bleeding (principal); E87.4 Mixed disorder of acid-base balance; E87.1 Hypo-osmolality and hyponatremia; F41.9 Anxiety disorder, unspecified; I10 Essential (primary) hypertension; K44.9 Diaphragmatic hernia without obstruction or gangrene; D64.9 Anemia, unspecified; G43.909 Migraine, unspecified, not intractable, without status migrainosus; F10.10 Alcohol abuse, uncomplicated; E86.1 Hypovolemia; E86.0 Dehydration; K31.84 Gastroparesis; E83.39 Other disorders of phosphorus metabolism; K58.9 Irritable bowel syndrome, unspecified; K76.0 Fatty (change of) liver, not elsewhere classified; E53.8 Deficiency of other specified B group vitamins; D72.829 Elevated white blood cell count, unspecified; E87.6 Hypokalemia; E83.42 Hypomagnesemia; M10.9 Gout, unspecified; Z87.11 Personal history of peptic ulcer disease; Z88.6 Allergy status to analgesic agent; Z87.891 Personal history of nicotine dependence; Z88.2 Allergy status to sulfonamides; Z88.8 Allergy status to other drugs, medicaments and biological substances; Z91.199 Patient's noncompliance with other medical treatment and regimen due to unspecified reason; Z90.49 Acquired absence of other specified parts of digestive tract; Z91.148 Patient's other noncompliance with medication regimen for other reason
CPT/HCPCS: 74022; 80048; 80053; 80143; 80179; 82077; 82570; 82607; 82746; 82805; 83540; 83550; 83605; 83690; 83735; 83935; 84100; 84300; 84484; 85025; 85027; 87045; 87046; 87324; 87328; 87329; 87427; 87449; 87798; 89055; 93005; 99285

== ENCOUNTER 2024-05-16 02:32 | Inpatient (IN) | payer MEDICARE, SELFPAY ==
[2024-05-15 22:19] VITALS: BP 157/90
[2024-05-15 22:21] LABS: Glucose - Point of Care 332 mg/dl (70-99)
[2024-05-15 22:36] LABS: Venous Blood Gas B.E. -18.2 mmol/L (-4 to +4); Venous Blood Gas HCO3 9.6 mmol/L (22-27); Venous Blood Gas O2 Sat % 94.5 %; Venous Blood Gas pCO2 29 mmHg (35-48); Venous Blood Gas pO2 70 mmHg (30-50)
[2024-05-15 22:39] LABS: Venous Blood Gas pH 7.13 (7.32-7.43)
[2024-05-15 22:49] LABS: % Basophils 0.3 % (0-2); % Eosinophils 0.1 % (0-6); % Immature Granulocytes 1.6 % (0-0.5); % Lymphocytes 4.3 % (20.5-51.1); % Monocytes 4.5 % (1.7-9.3); % Neutrophils 89.2 % (42.2-75.2); Absolute Basophils 0.1 10^3/uL (0-0.2); Absolute Immature Granulocytes 0.4 10^3/uL (0-0.05); Absolute Lymphocytes 1.1 10^3/uL (1.2-3.4); Absolute Monocytes 1.2 10^3/uL (0.1-0.6); Absolute Neutrophils 23.2 10^3/uL (1.4-6.5); Hematocrit 28.8 % (37.0-47.0); Hemoglobin 9.6 g/dL (12.0-16.0); Mean Corp Hgb Conc. 33.3 g/dL (33.0-37.0); Mean Corpuscular Hgb 31.5 pg (27.0-31.0); Mean Corpuscular Volume 94.4 fL (81.0-99.0); Mean Platelet Volume 9.1 fL (7.4-10.4); Nucleated Red Blood Cells % 0 %; Platelet Count 431 10^3/uL (130-400); Red Blood Cell Count 3.05 10^6/uL (4.20-5.40); White Blood Cell Count 26.1 10^3/uL (4.8-10.8)
[2024-05-15 22:50] LABS: Lactic Acid 7.9 mmol/L (0.7-2.0)
[2024-05-15] MEDS: NSS 1500 IV (23:24)
[2024-05-15 23:43] VITALS: BP 125/68
[2024-05-15 23:57] LABS: Blood Urea Nitrogen 24 mg/dl (7-17); Calcium 8.4 mg/dl (8.4-10.2); Carbon Dioxide 7 mmol/L (22-30); Chloride 94 mmol/L (98-107); Glucose 280 mg/dl (70-99); Sodium 136 mmol/L (135-145); eGFR 32.06
[2024-05-16] VITALS (45 sets, daily range): BP systolic 84–138; BP diastolic 50–85; PULSE 80; O2SAT 95; BMI 25.0
[2024-05-16 00:48] LABS: B-Hydroxybutyrate 8.42 mmol/L (0.02-0.27)
--- NOTE | 2024-05-16 00:56 | ED.GENMED ---
History of Present Illness
General
Chief Complaint: Abdominal Symptoms
Source: patient and records
Exam Limitations: none
Time Seen by Provider: 05/15/24 22:58
Nursing documentation reviewed up to this point in time: agreed with
History of Present Illness
History of Present Illness:
Patient is a 68-year-old female presents to the emergency department complaining of nausea and vomiting as well as feeling lightheaded and thirsty. Patient denies fever but admits to chills. Patient denies nasal congestion, sore throat or cough.
Patient had diarrhea yesterday but none today. Patient's urinary output is decreased but denies any dysuria, hematuria, urgency or frequency. Patient denies any headache or neck stiffness. Patient denies any rashes. Patient has a history of
alcohol abuse and has limited access intravenously. Patient was noted to have an elevated blood sugar level but has no history of being diabetic. Patient does have chronic intermittent abdominal pain however this does not seem to be an issue today.
Past History
Past History
ED Past Medical History: Cancer (Skin Cancer face), GERD, HTN, Psychiatric (Anxiety), Other (GI bleeding, Hiatal hernia. Ulcers, anemia. Migraine headaches, Colitis) and Other (recent colitis November/December 2023, severe esophagitis, alcohol abuse,
benzodiazepine withdrawal)
ED Past Surgical History: Appendectomy, Cholecystectomy, Gynecological (hysterectomy,), Orthopedic and Other (Mohs skin surgery, RUE epicondylitis X 2)
Patient has exhibited threatening behavior?: No
PSI?: No
Social History
Tobacco: Former smoker
Alcohol: Binge drinker
Drug: None and Other (History of benzodiazepine abuse)
Personal:
Living: alone
Family History
Family History: Other (Noncontributory)
Review of Systems
Review of Systems
All Other Systems: ROS reviewed and negative except as documented in HPI and ROS
Constitutional: Reports fatigue and chills; Denies fever
EENT: Reports no symptoms
Respiratory: Reports no symptoms
Cardiac: Reports no symptoms
ABD/GI: Reports abdominal pain, nausea, vomiting, diarrhea and anorexia; Denies constipated, bloody stools or black stools
: Reports no symptoms
Musculoskeletal: Reports no symptoms
Skin: Reports no symptoms
Neurological: Reports no symptoms
Hematologic/Lymphatic: Reports no symptoms
Phy Exam
Physical Exam
Physical Exam:
Physical Exam
General: mild to moderate distress, alert and appropriate, well nourished, dry mucous membranes
HENT: Normocephalic, supple with no lymphadenopathy, no thyromegaly
Eyes: Clear sclera, conjuctiva without injection
Heart: Regular rhythm and tachycardic rate. No S3, S4. No murmur. No NVD
Lungs: No respiratory distress, no stridor, lung sounds clear and equal bilaterally, chest wall symmetrical and nontender
Abdomen: Soft, minimal diffuse tenderness without guarding or rebound, no organomegaly, no CVA tenderness, BS good
Neuro: Alert and usual mental status, CN II - XII intact, no motor focality
Skin: no rash
Psychiatric: well kept. interactive and cooperative
Extremities: No edema, cyanosis, tenderness
Course
Orders/Labs/Results
Orders:
Orders
05/15/24 22:29
Complete Blood Count/With Diff Urgent
Lactic Acid Urgent
Venous Blood Gas Urgent
%Oxygen/Room Air: room air
05/15/24 23:11
Urinalysis Reflex To Culture Urgent
Date Specimen was Collected: 05/16/24
Time Specimen was Collected: 01:32
Blood Culture Urgent
ANITRA Source: Blood/Venous
Specimen Description:
0.9% Sodium Chloride 1000 ml [Nss] 1,500 ml IV BOLUS
05/15/24 23:18
B-Hydroxybutyrate Urgent
Basic Metabolic Panel Urgent
C-Reactive Protein Urgent
05/15/24 23:41
Blood Culture Routine
ANITRA Source: Blood/Venous
Specimen Description:
05/16/24 00:00
CR Chest - 2 Views Urgent
Reason For Exam: [place] [address] wbc
05/16/24 00:55
Add On- LAB Urgent
Tests Added?: Serum Osm
Piperacillin/Tazo 4.5 Gram [Zosyn] 4.5 gram in 100 ml IV NOW
05/16/24 00:56
Add On- LAB Urgent
Tests Added?: magnesium, phosphorus
05/16/24 01:29
Comprehensive Metabolic Panel Urgent
Magnesium Urgent
Phosphorus Urgent
Serum Osmolality Urgent
05/16/24 01:33
Urine Microscopic Reflex Cult Urgent
Urine Culture Urgent
ANITRA Source: U
Specimen Description:
Date Specimen was Collected: 05/16/24
Time Specimen was Collected: 01:32
05/16/24 02:02
Admit/Transfer Patient As Directed
Co-Sign Provider:
Level of Care: Inpatient admission
Assign to:: IMU- Intermediate Care
Physician / Group: [facility]
Diagnosis: JULI, Metabolic Acidosis
Reason for Hospitalization: JULI, Metabolic Acidosis
Expected length of stay greater than two midnights?: Yes
ELOS- Estimated Length of Stay in days: 4
I certify the patient meets the requirements for IP care: Yes
05/16/24 02:04
Code Status As Directed
Resuscitation Status: Full Code
PRN Pain Medication Management As Directed
May give lesser potent ordered pain med per pt: Yes
preference::
Protocol:: Medication orders for pain may be administered in a
manner that supports deferring to patient preference
when the pt is:
- Requesting an ordered lesser potent pain medication.
Least to most potent pain medications are defined
as: acetaminophen < NSAID < tramadol < opioids
(morphine, oxycodone, hydromorphone).
- Requesting a lesser dose of the same medication IF
ORDERED.
- Requesting a less intrusive route of administration
if both routes are prescribed by the provider (PO <
IV).
05/16/24 02:08
Magnesium Sulfate 4 Gram/100Ml [Magnesium Sulfate] 4 gram in 100 ml IV NOW
05/16/24 02:15
Lactate Level [Lactic Acid] Urgent
05/16/24 02:22
Vancomycin [Vancocin] 1,500 mg 0.9% Sodium Chloride [Nss] 20 ml 0.9% Sodium Chloride 250 ml [Nss] 250 ml IV NOW
Abnormal Lab Results
05/15/24 05/15/24 05/15/24
22:20 22:29 23:18
WBC 26.1 H 10^3/uL
(4.8-10.8)
RBC 3.05 L 10^6/uL
(4.20-5.40)
Hgb 9.6 L g/dL
(12.0-16.0)
Hct 28.8 L %
(37.0-47.0)
MCH 31.5 H pg
(27.0-31.0)
RDW 17.0 H %
(11.5-14.5)
Plt Count 431 H 10^3/uL
(130-400)
Abs Immat Gran (auto) 0.4 H 10^3/uL
(0-0.05)
Absolute Neuts (auto) 23.2 H 10^3/uL
(1.4-6.5)
Absolute Lymphs (auto) 1.1 L 10^3/uL
(1.2-3.4)
Absolute Monos (auto) 1.2 H 10^3/uL
(0.1-0.6)
Immature Gran % 1.6 H %
(0-0.5)
Neutrophils % 89.2 H %
(42.2-75.2)
Lymphocytes % 4.3 L %
(20.5-51.1)
VBG pH 7.13 L*
(7.32-7.43)
VBG pCO2 29 L mmHg
(35-48)
VBG pO2 70 H mmHg
(30-50)
VBG HCO3 9.6 L mmol/L
(22-27)
Chloride 94 L mmol/L
(98-107)
Carbon Dioxide 7 L* mmol/L
(22-30)
BUN 24 H mg/dl
(7-17)
Creatinine 1.7 H mg/dL
(0.6-1.0)
Glucose 280 H mg/dl
(70-99)
Lactic Acid 7.9 H* mmol/L
(0.7-2.0)
Calcium
Phosphorus
Magnesium
AST
C-Reactive Protein 16.20 H mg/L
(0.0-10.00)
Total Protein
Urine Ketones
Ur Occult Blood Reflex
Urine RBC
Urine WBC (Reflex)
Urine Bacteria (Reflex)
Urine Yeast
B-Hydroxybutyrate 8.42 H mmol/L
(0.02-0.27)
POC Glucose 332 H mg/dl
(70-99)
24 05/16/24
01:29 01:33
WBC
RBC
Hgb
Hct
MCH
RDW
Plt Count
Abs Immat Gran (auto)
Absolute Neuts (auto)
Absolute Lymphs (auto)
Absolute Monos (auto)
Immature Gran %
Neutrophils %
Lymphocytes %
VBG pH
VBG pCO2
VBG pO2
VBG HCO3
Chloride
Carbon Dioxide 12 L* mmol/L
(22-30)
BUN 22 H mg/dl
(7-17)
Creatinine 1.4 H mg/dL
(0.6-1.0)
Glucose 128 H mg/dl
(70-99)
Lactic Acid
Calcium 7.5 L mg/dl
(8.4-10.2)
Phosphorus 4.7 H mg/dl
(2.5-4.5)
Magnesium 0.9 L* mg/dl
(1.6-2.3)
AST 66 H U/L
(14-36)
C-Reactive Protein
Total Protein 6.0 L g/dl
(6.3-8.2)
Urine Ketones 3+ A
(Negative)
Ur Occult Blood Reflex 2+ A
(Negative)
Urine RBC 3-6 A /HPF
(0-2)
Urine WBC (Reflex) 11-15 A /HPF
(0-5)
Urine Bacteria (Reflex) Many A
(Negative)
Urine Yeast Few A
(Negative)
B-Hydroxybutyrate
POC Glucose
05/15/24 22:29
05/16/24 01:29
Vital Signs
Initial and Last Documented VS:
Initial Vital Signs
Temp Pulse Resp BP Pulse Ox
98.1 F 121 20 157/90 99
05/15/24 22:19 05/15/24 22:19 05/15/24 22:19 05/15/24 22:19 05/15/24 22:19
Last Documented Vital Signs
Temp Pulse Resp BP Pulse Ox
98.1 F 121 20 157/90 99
05/15/24 22:19 05/15/24 22:19 05/15/24 22:19 05/15/24 22:19 05/15/24 22:19
Procedures
Central Line
Right Femoral:
Indication for procedure:: large bore access
Procedure completed by: deion
Consent form signed: No
Anesthesia: 1% Lidocaine and Added Na bicarb to local
Central line lumen: triple
Number of attempts: 1
Central line complications: none
Sterile dressing applied?: Yes
*Radiology
Radiology exam reviewed: preliminary read by ED provider (cxr nad)
*Pulse Oximetry
Patient hypoxic: no
*EKG
Interpreted by ED Provider?: NA
*Social Media Designer Interpretation
Rate: tachycardiac
Interpretation: abnormal
Heart Rate: 110
Rhythm: sinus
*Critical Care Note
Total Time (30-74mins, 75-104mins- exclusive of procedures): 45 minutes
ED Attending Note
-
Portions of this chart may have been created with voice recognition software.� Occasional wrong word or��sound alike� substitutions may have occurred due to the inherent limitations of voice recognition software.
Discharge Plan
Departure
Patient Disposition: Admit
Date of Disposition: 05/16/24
Time of Disposition: 01:04
Admit to: Telemetry
Admit to doctor: hospitalist
Presentation/result/management discussed w/ accepting MD/DO: Hospitalist
Patient with high blood pressure during this ER visit?: Yes
Condition: Fair
Covid-19: Not Applicable
Discharge Problem:
Sepsis, Dehydration
Interventions
Interventions:
*Risk Screen - Suicide Last Done: 05/15/24 22:19
*General Assessment Last Done: 05/15/24 22:19
*Neglect/Abuse Screening Last Done: 05/15/24 22:19
DI-Lhxrsm-Kyxrqzowfc Assessment Last Done: 05/15/24 23:00
[2024-05-16 01:39] LABS: Urine Albumin Trace (Neg - Trace); Urine Bilirubin Negative (Negative); Urine Character Slightly Cloudy (Clear); Urine Color Yellow; Urine Glucose Negative (Negative); Urine Ketone 3+ (Negative); Urine Leukocyte Negative (Negative); Urine Nitrite Negative (Negative); Urine Occult Blood 2+ (Negative); Urine Specific Gravity 1.025 (<1.030); Urine Urobilinogen Negative (Neg - 1+)
[2024-05-16] MEDS: ZOSYN 100 IV (01:43)
[2024-05-16 01:50] LABS: Urine Amorphous Seen; Urine Bacteria Many (Negative); Urine Hyaline Cast >15 /LPF (0-2); Urine Squamous Cell >30 /LPF (Few)
[2024-05-16 01:52] LABS: Urine Yeast Few (Negative)
[2024-05-16 01:53] LABS: Urine Granular Cast 0-2 /LPF (0)
[2024-05-16 01:54] LABS: Osmolality Serum 294 mOsm/kg (275-300)
[2024-05-16 02:06] LABS: ALT (SGPT) 30 U/L (0-35); AST (SGOT) 66 U/L (14-36); Albumin 3.8 g/dl (3.5-5.0); Alkaline Phosphatase 114 U/L (38-126); Blood Urea Nitrogen 22 mg/dl (7-17); Calcium 7.5 mg/dl (8.4-10.2); Carbon Dioxide 12 mmol/L (22-30); Chloride 100 mmol/L (98-107); Glucose 128 mg/dl (70-99); Magnesium 0.9 mg/dl (1.6-2.3); Phosphorus 4.7 mg/dl (2.5-4.5); Potassium 4.2 mmol/L (3.5-5.1); Sodium 138 mmol/L (135-145); Total Bilirubin 1.2 mg/dl (0.2-1.3); eGFR 40.47
--- NOTE | 2024-05-16 02:13 | HPS.HSE ---
Family Physician
-
Family Physician: Ishaan Ames
Chief Complaint
-
N/V
History of Present Illness
Patient is a 68y F with PMH significant for alcohol use disorder and multiple / repeated admissions for N/V and marked anion gap metabolic acidosis who presents to ED complaining of N/V. Patient states that she began to have nausea / emesis last
PM. This persisted all day today with multiple episodes of emesis at home. Patient complains of mid-abdominal pain. She reports frequent loose stools as well. No black or bloody stools. No grossly bloody emesis.
Patient presented to the ED for further evaluation.
On initial evaluation, patient is noted to have anion gap metabolic acidosis and has had multiple small episodes of emesis here in the ED.
Patient reports alcohol intake 'every once in a while'. She states it has been at least a few days since her last alcohol intake.
She admits that she takes none of her prescribed medications at home.
She denies any new / toxic / unusual ingestions.
Medical History
Past Medical History
Past Medical History: Reports Other
Additional Past Medical History:
Gastritis
Grade C/D Esophagitis
Alcohol Use Disorder
Irritable Bowel Syndrome
C Diff
Anxiety
Past Surgical History: Reports Other
Additional Past Surgical History:
Cholecystectomy
Appendectomy
Hysterectomy
Mohs Procedure
Right Upper Extremity Epicondylitis Surgery
Social History
Tobacco: Non-smoker
Alcohol: Other (Patient known history of alcohol use disorder, but is currently denies any alcohol use)
Drug: None
Personal: Single
Family History
Family History: Other (Father: Colon Cancer)
Allergies / Home Medications
Allergies reflects when Allergies were last updated in [facility].
Home Medications with original date entered in [facility]
Allergy/Medication List:
Patient admits that she takes no daily medications at home.
Review of Systems
-
History Source: Patient
A 12 point ROS was completed and negative except as noted: Yes
Constitutional: Reports Fatigue; Denies Fever or Chills
EENT: Denies Sore Throat
Respiratory: Reports Trouble Breathing; Denies Cough
Cardiac: Denies Chest Pain or Palpitations
Abdomen/GI: Reports Abdominal Pain, Nausea, Vomiting, Diarrhea and Anorexia; Denies Bloody Stools or Black Stools
: Denies Dysuria or Frequency
Musculoskeletal: Denies Joint Pain or Edema
Neurological: Denies Dizzy or Headache
Psych: Reports Anxiety; Denies Depression
Physical Exam
Vital Signs
Vital Signs
Temp Pulse Resp BP Pulse Ox
98.1 F 121 20 157/90 99
05/15/24 22:19 05/15/24 22:19 05/15/24 22:19 05/15/24 22:19 05/15/24 22:19
Physical Exam
General: Other (Ill-appearing 68y F in mild - moderate distress.)
HEENT: Other (Dry MM. Neck supple.)
Respiratory: Other (Tachypnea. Lungs clear.)
Cardiac: S1/S2 and Tachycardia; No Murmur
GI: Soft, Non Distended, Normal Bowel Sounds and Other (Pos mid-abdominal tenderness and voluntary guarding.)
Musculoskeletal: No Clubbing, No Cyanosis and No Edema
Neuro: AO x 3
Laboratory Results
-
05/15/24 22:29
05/16/24 01:29
Laboratory Results
Lactic Acid 7.9 mmol/L (0.7-2.0) H* 05/15/24 22:29
Total Bilirubin 1.2 mg/dl (0.2-1.3) 05/16/24 01:29
AST 66 U/L (14-36) H 05/16/24 01:29
ALT 30 U/L (0-35) 05/16/24 01:29
Alkaline Phosphatase 114 U/L (38-126) 05/16/24 01:29
Impression/Plan
-
A/P: Patient is a 68y F with PMH significant for alcohol use disorder, GERD / gastritis and repeated admissions for N/V and associated anion gap metabolic acidosis who presents to ED c/o abd pain and N/V.
Anion Gap Metabolic Acidosis
Lactic Acidosis
Ketoacidosis
- Admit for further evaluation and treatment.
- Anion gap on initial labs is 35 with combination of ketoacidosis (likely due to starvation +/- alcohol) and lactic acidosis (likely due to hypovolemia / hypoperfusion).
- Patient admits that she does not take medications as prescribed.
- No evidence of toxic ingestion. Osmolar gap is normal.
- IVF support overnight and follow for improvement in labs / lytes.
- Treat underlying / primary GI issues as noted below.
- Nephrology evaluation for further recommendations re: acid-base derangements.
- ? steps to avoid future episodes as this is clearly a recurrent issue.
GERD / Gastritis / Esophagitis
- Patient states that she probably has these episodes because she 'doesn't take my stomach pills'.
- Admittedly non-compliant with PPI, Carafate, etc.
- IV PPI BID for now.
- Supportive care including IVFs, antiemetics, etc.
JULI
- SCr = 1.7 compared to known baseline of 0.9.
- Likely secondary to volume losses +/- degree of ATN from hypoperfusion.
- IVF support as noted above.
- Avoid nephrotoxic agents.
- Follow for return to baseline renal function.
Hypomagnesemia
- Mg = 0.9 on initial labs.
- IV replacement and follow for improvement.
- Additional replacement in the AM if needed.
Leukocytosis
Thrombocytosis
- Suspect this is reactive / due to volume contraction and not necessarily infectious process.
- Would observe off of further abx for now and follow for improvement in cell counts.
- Monitor for any fever or other new / worsening symptoms.
- Follow-up any culture data.
Chronic Anemia
- Hgb stable at present - but follow for changes with volume resuscitation.
- h/o B12 deficiency and not compliant with supplementation.
- No evidence at present of any active / ongoing blood loss.
Alcohol Use Disorder
- Patient reports no alcohol in several days.
- Check EtOH, UDS, etc.
- Alcohol withdrawal protocols during stay.
- Thiamine, folate, MVI replacement, etc.
DVT Prophylaxis: Lovenox
Code Status: Full
[2024-05-16] MEDS: VANCOCIN 300 MG IV (03:10)
[2024-05-16] MEDS: VANCOCIN 300 ML IV (03:10)
[2024-05-16] MEDS: MAGNESIUM SULFATE 100 IV (03:10)
[2024-05-16 03:54] LABS: Lactic Acid 2.1 mmol/L (0.7-2.0)
[2024-05-16] MEDS: LR 1000 IV ×4 (04:13→18:01)
[2024-05-16 06:22] LABS: Glucose - Point of Care 78 mg/dl (70-99)
--- NOTE | 2024-05-16 06:38 | PTCARENOTE ---
Pt admitted to ICU. AAOx3 forgetful at times, anxious, and withdrawn. MSAS score 4, NSR in the monitor. Lung sounds are diminished the bases, SaO2 98% RA. shallow breathing. Abd round and tender to palpitation. Purewick in place. Ptis getting IVF.
Refuses SCD. Pt is NPO and call campos with reach.
--- NOTE | 2024-05-16 07:36 | W.PN.HOSP.TC ---
Today's Communication/Plan
-
monitor and replete electrolytes
cont IVF support
abx as per ICU
Monitor renal function
pain control
antiemetics prn
Assessment / Plan
Assessment / Plan
Physical Exam
General: no acute distress, appears comfortable at this time
HEENT: normocephalic atraumatic moist mucosa
Respiratory: clear to auscultation b/l
Cardiac: S1/S2 and Tachycardia; No Murmur
GI: Soft, Non Distended, Normal Bowel Sounds, abd tenderness
Musculoskeletal: No Clubbing, No Cyanosis and No Edema
Neuro: Lethargic but arousable oriented x 3
A/P: Patient is a 68y F with PMH significant for alcohol use disorder, GERD / gastritis and repeated admissions for N/V and associated anion gap metabolic acidosis who presents to ED c/o abd pain and N/V.
Anion Gap Metabolic Acidosis
Lactic Acidosis
Ketoacidosis
- Sales And Service Associate and Nephrology eval appreciated
- Anion gap on initial labs is 35 with combination of ketoacidosis (likely due to starvation +/- alcohol) and lactic acidosis (likely due to hypovolemia / hypoperfusion).
- Patient admits that she does not take medications as prescribed.
- No evidence of toxic ingestion. Osmolar gap is normal.
- IVF support
GERD / Gastritis / Esophagitis
- Admittedly non-compliant with PPI, Carafate, etc.
- IV PPI BID
- Supportive care including IVFs, antiemetics.
JULI
- SCr = 1.7 compared to known baseline of 0.9.
- Likely secondary to volume losses +/- degree of ATN from hypoperfusion.
- IVF support as noted above.
- Avoid nephrotoxic agents.
- Monitor Renal function.
Hypomagnesemia
- Mg = 0.9 on initial labs. Repleted
- Monitor and replete as necessary
Leukocytosis
Thrombocytosis
- Suspect this is reactive / due to volume contraction and not necessarily infectious process.
- Monitor for any fever or other new / worsening symptoms.
- Follow cultures
- Empiric abx as per ICU
Chronic Anemia
- H&H stable, cont to monitor
- h/o B12 deficiency and not compliant with supplementation.
Alcohol Use Disorder
- Patient reports no alcohol in several days.
- Alcohol withdrawal protocols during stay.
- Thiamine, folate, MVI replacement
DVT Prophylaxis: Lovenox
Code Status: Full
Total Critical Care Time__50___ minutes. I was immediately available to the patient and staff. I personally examined, reviewed labs, diagnostic images/reports, interpretations, treatment plans, discussed patient care with other providers and
patient, entered orders as appropriate and documented the medical record.
Anticipated Discharge: > 48 hours
Subjective/Interval History
-
Date of Service: May 16, 2024
Sleeping resting comfortably in bed. Easily woken. reports abdomen pain. No appetite.
Objective Data
-
Labs:
Laboratory Results
05/15/24 05/15/24 05/16/24
22:29 23:18 01:29
WBC 26.1 H
Hgb 9.6 L
Hct 28.8 L
Plt Count 431 H
PT
INR
APTT
Sodium Cancelled 136 138
Potassium Cancelled 4.2
Chloride Cancelled 94 L 100
Carbon Dioxide Cancelled 7 L* 12 L*
BUN Cancelled 24 H 22 H
Creatinine Cancelled 1.7 H 1.4 H
Glucose Cancelled 280 H 128 H
Calcium Cancelled 8.4 7.5 L
Total Bilirubin Cancelled Cancelled 1.2
AST Cancelled Cancelled 66 H
ALT Cancelled Cancelled 30
Alkaline Phosphatase Cancelled Cancelled 114
05/16/24 05/16/2424
06:12 10:00 14:00
WBC
Hgb
Hct
Plt Count
PT Pending
INR Pending
APTT Pending
Sodium Pending Pending
Potassium Pending Pending
Chloride Pending Pending
Carbon Dioxide Pending Pending
BUN Pending Pending
Creatinine Pending Pending
Glucose Pending Pending
Calcium Pending Pending
Total Bilirubin
AST
ALT
Alkaline Phosphatase
05/16/24 05/16/24
18:00 22:00
WBC
Hgb
Hct
Plt Count
PT
INR
APTT
Sodium Pending Pending
Potassium Pending Pending
Chloride Pending Pending
Carbon Dioxide Pending Pending
BUN Pending Pending
Creatinine Pending Pending
Glucose Pending Pending
Calcium Pending Pending
Total Bilirubin
AST
ALT
Alkaline Phosphatase
Vital Signs:
Vital Signs
Temp Pulse Resp BP Pulse Ox
98.5 F 83 20 96/65 93
05/16/24 07:34 05/16/24 07:15 05/16/24 07:15 05/16/24 07:15 05/16/24 07:27
I&O
05/15/24 05/16/24 05/17/24
06:59 06:59 06:59
Output Total 250 / 250
Balance -250 / -250
[2024-05-16] MEDS: PROTONIX IV 40 MG IV ×2 (07:47→20:17)
[2024-05-16] MEDS: NSS (PRESERVATIVE FREE) 10 ML IV ×2 (07:47→20:17)
[2024-05-16] MEDS: THIAMINE INJECTION 200 MG IV ×3 (07:47→23:07)
[2024-05-16] MEDS: FOLVITE PO ×2 (07:47→08:43)
[2024-05-16 08:10] LABS: Blood Urea Nitrogen 20 mg/dl (7-17); Calcium 7.3 mg/dl (8.4-10.2); Carbon Dioxide 20 mmol/L (22-30); Chloride 103 mmol/L (98-107); Estimated Creatinine Clearance 30 ml/min; Glucose 109 mg/dl (70-99); Potassium 4.2 mmol/L (3.5-5.1); Sodium 138 mmol/L (135-145); eGFR 40.47
[2024-05-16 08:13] LABS: Amylase 66 U/L (30-110); Lipase 82 U/L (23-300)
[2024-05-16 08:14] LABS: Alcohol None Detected
[2024-05-16 08:18] LABS: INR 1.08; PT 13.8 Sec (11.4-14.6)
[2024-05-16 08:19] LABS: APTT 26.7 Sec (23.4-35.0)
[2024-05-16 08:25] LABS: Amphetamines Negative (Negative); Barbiturates Negative (Negative); Benzodiazepines Negative (Negative); Buprenorphine Negative (Negative); Cocaine Negative (Negative); Marijuana Negative (Negative); Methadone Negative (Negative); Methamphetamines Negative (Negative); Opiates Negative (Negative); Phencyclidine Negative (Negative); Tricyclic Antidepressants Negative (Negative)
[2024-05-16 08:41] LABS: TSH Reflex To Free T4 1.41 uIU/ml (0.47-4.68)
--- NOTE | 2024-05-16 08:48 | CON.INTV ---
Consultation
Consultation Request
Date/Time Consultation Requested: 05/16/2024608
Date/Time Consultation Performed: 05/16/2024837
Requesting Provider: NIDHI Glez
Performing Provider: Oscar Messer MD
Reason for Consultation: Tachycardia/Metabolic acidosis
Medical History
-
Chief Complaint: Elevated blood sugar + nausea/vomiting
History of Present Illness:
68-year-old female former tobacco smoker with a past medical history of anxiety, alcohol use disorder with history of alcoholic hepatitis, gastritis, esophagitis, history of GIB, history of JULI, hiatal hernia and chronic hypotension who presents
with elevated blood glucose level + nausea/vomiting. Patient denies having history of diabetes mellitus. Last HbA1c: 5.1 in December 2023. Nausea/vomiting started night prior to arrival. She also endorses mid abdominal pain + loose stools. No
black or bloody stools and vomitus was nonbloody. She endorses alcohol use 'once in a while,' with last alcohol intake few days ago. She does report noncompliance to her prescribed medications. Initial vitals in the ER showed she was afebrile to
98.1 �F, tachycardic to 121 bpm, tachypneic to 20 breaths/min, BP 157/90 and saturating 99% on room air. Labs showed leukocytosis to 26.1, Hb 9.6, blood gas showed pH 7.13, pCO2 29, serum bicarbonate 7, creatinine 1.7, initial glucose 280 with
POCT: 332, BOHB 8.42, initial lactate 7.9, magnesium level 0.9, AST 66, TSH WNL at 1.41, and UA showed +3 ketones and 11�15 urine WBC. UDS was negative + alcohol level was negative. Blood cultures + UCX were collected, and CXR showed no acute
cardiopulmonary disease. She was given crystalloids with NS 0.9% x 1.5L and Zosyn. Given her significant electrolyte derangements and tachycardia, she was admitted to the ICU for further care. Critical care services consulted for additional
management/recommendations.
When I saw the patient, she was in bed, resting in no acute distress. Currently on room air saturating 97%, BP 112/70 and heart rate 87. She is currently on LR at 150cc/hr. she says that she fell recently and has left elbow pain. She otherwise
denies CP, SOB, KHAN, diarrhea, fevers or chills. She does endorse abdominal discomfort with nausea, and would like something for that.
PMHx: Chronic hypotension, anxiety disorder, esophagitis, gastritis, history of alcohol use disorder with alcoholic hepatitis, history of GI bleed, physical deconditioning/generalized weakness, history of JULI, history of hiatal hernia, former
tobacco use disorder
PSHx: Left arm surgery X2, hysterectomy
Past Medical History
Past Medical History: Other (Above as per HPI)
Past Surgical History: Other (Above as per HPI)
Social History
Tobacco: Former Smoker (Quit 40 years ago, previously smoked 1 PPD X 15-20 years)
Alcohol: None
Drug: None
Family History
Family History: Hypertension (Father + mother)
Allergies / Home Medications
Allergies
Allergy/AdvReac Type Severity Reaction Status Date / Time
aspirin Allergy Unknown Verified 05/15/24 22:18
gabapentin Allergy Unknown Verified 05/15/24 22:18
NSAIDS (Non-Steroidal Allergy Unknown Verified 05/15/24 22:18
Anti-Inflamma
[id number] Reductase Allergy Swelling Verified 05/15/24 22:18
Inhibitor
Sulfa (Sulfonamide Allergy Unknown Verified 05/15/24 22:18
Antibiotics)
Home Medications
�Medication �Instructions �Recorded �Confirmed �Last Taken �Type
lorazepam 0.5 mg tablet 0.5 mg PO HSPRN PRN anxiety/sleep 03/31/24 04/25/24 Unknown Rx
#7 tabs
pantoprazole 40 mg tablet,delayed 40 mg PO BID GERD #120 tabs 03/31/24 04/25/24 04/24/24 Rx
release
cholestyramine (with sugar) 4 gram 1 ea PO Q8H #60 ea 04/13/24 04/25/24 04/24/24 Rx
powder for susp in a packet
folic acid 1 mg tablet 1 mg PO DAILY #30 tabs 04/13/24 04/25/24 04/24/24 Rx
hydrocortisone acetate 25 mg 25 mg IL HS #12 ea 04/13/24 04/25/24 04/24/24 Rx
rectal suppository
magnesium oxide 500 mg capsule 500 mg PO BID #60 caps 04/13/24 04/25/24 04/24/24 Rx
potassium chloride 20 mEq 20 meq PO DAILY #30 tabs 04/13/24 04/25/24 04/24/24 Rx
tablet,extended release
sucralfate 100 mg/mL oral 1 g (10 mL) PO ACHS #414 mL 04/13/24 04/25/24 04/24/24 Rx
suspension
thiamine HCl (vitamin B1) 100 mg 100 mg PO BID #60 tabs 04/13/24 04/25/24 04/24/24 Rx
tablet
bisacodyl 10 mg rectal suppository 10 mg IL [id number] constipation 30 05/04/24 Unknown Rx
days #30 ea
cyanocobalamin (vitamin B-12) 1,000 mcg PO DAILY 30 days #30 tabs 05/04/24 Unknown Rx
1,000 mcg tablet
dicyclomine 20 mg tablet 20 mg PO TID Gastrointestinal 05/04/24 Unknown Rx
issue 30 days #90 tabs
Review of Systems
-
History Source: Patient
All other systems: Negative unless noted (12 point ROS performed and is negative unless mentioned above.)
Vitals / Labs / Diagnostic Testing
Vital Signs
Temp Pulse Resp BP Pulse Ox
98.5 F 84 22 98/59 94
05/16/24 07:34 05/16/24 09:00 05/16/24 09:00 05/16/24 09:00 05/16/24 09:00
Lab Data
05/15/24 22:29
Laboratory Results
05/16/24
07:44
PT 13.8
INR 1.08
APTT 26.7
Diagnostic Testing:
Physical Exam
-
HEENT: Normocephalic and Anicteric
Cardiovascular: S1/S2 and Peripheral Edema (negative)
Respiratory: Clear, Wheeze (negative), Rales (negative) and Rhonchi (negative)
GI: Soft, Non Distended, Non Tender and Normal Bowel Sounds
Neurology: Awake, Alert and Tremors (negative)
Skin: Warm, Dry and Other (Erythema with slight edema of left olecranon process)
General: Respiratory Distress (negative), Comfortable, Chills (negative) and Sweats (negative)
Assessment
-
Assessment: 68-year-old female former tobacco smoker with a past medical history of anxiety, alcohol use disorder with history of alcoholic hepatitis, gastritis, esophagitis, history of GIB, history of JULI, hiatal hernia and chronic hypotension who
presents with elevated blood glucose level + nausea/vomiting. Patient denies having history of diabetes mellitus. Last HbA1c: 5.1 in December 2023. Nausea/vomiting started night prior to arrival. She also endorses mid abdominal pain + loose stools.
No black or bloody stools and vomitus was nonbloody. She endorses alcohol use 'once in a while,' with last alcohol intake few days ago. She does report noncompliance to her prescribed medications. Initial vitals in the ER showed she was afebrile
to 98.1 �F, tachycardic to 121 bpm, tachypneic to 20 breaths/min, BP 157/90 and saturating 99% on room air. Labs showed leukocytosis to 26.1, Hb 9.6, blood gas showed pH 7.13, pCO2 29, serum bicarbonate 7, creatinine 1.7, initial glucose 280 with
POCT: 332, BOHB 8.42, initial lactate 7.9, magnesium level 0.9, AST 66, TSH WNL at 1.41, and UA showed +3 ketones and 11�15 urine WBC. UDS was negative + alcohol level was negative. Blood cultures + UCX were collected, and CXR showed no acute
cardiopulmonary disease. She was given crystalloids with NS 0.9% x 1.5L and Zosyn. Given her significant electrolyte derangements and tachycardia, she was admitted to the ICU for further care. Critical care services consulted for additional
management/recommendations.
Chronic conditions [employer]ER: Chronic hypotension, anxiety disorder, esophagitis, gastritis, history of alcohol use disorder with alcoholic hepatitis, history of GI bleed, physical deconditioning/generalized weakness, history of JULI, history of hiatal
hernia, former tobacco use disorder
Impression:
#Nausea/vomiting with hyperglycemia
#Starvation ketoacidosis due to nausea/vomiting and reduced PO intake
#JULI (baseline Cr 0.9)
#Lactic acidosis
#Metabolic acidosis with increased anion gap due to lactate + ketoacidosis
#Hypomagnesemia
#Fall with left elbow pain
#Leukocytosis � likely reactive
#Chronic anemia (baseline Hb: 8.5�10g/dL)
#Transaminitis with elevated AST
#Alcohol use disorder with Hx of alcoholic hepatitis
#Hx of esophagitis/gastritis
#Hx of GIB
Plan:
- Continue IVF --> currently on LR at 150cc/hr
- Trend lactate until <2mmol/L
- Replete electrolytes with K>4, Mg>2
- Monitor BG with goal BG 140-180 with ISS low resistance scale
- Antiemetics prn (QTc: 487ms from EKG today)
- Pain control
- she has left elbow pain, I instructed the bedside RN to apply an ice pack to her left elbow and continue to monitor; no current signs of cellulitis or fluctuance palpated on exam
- Check left elbow XR
- Renally dose all medications
- Trend sCr and UOP
- Trend WBC and monitor for fever
- Start rocephin 1g q daily given she has urinary complaints with urinary frequency and has urine WBC 11-15 with many bacteria seen on UA
- Follow up blood and urine Cx (both collected 05/16/2024)
- PPI 40mg IV BID
- Thiamine + folate
- MSAS with prn ativan
- Maintain SpO2 >90-94%
- Maintain MAP>65
- prn nebulized bronchodilators - not currently bronchospastic
- Incentive spirometer encouraged
- DVT ppx: change LMWH to heparin sq
Total time spent today was 75 minutes for this encounter. Time includes reviewing laboratory test/imaging results, reviewing pertinent medical records, obtaining and reviewing medical history, performing an appropriate exam, ordering medications,
tests and procedures. Time also includes documentation of this encounter, coordinating patient care and communicating with other healthcare professionals. Total time does not include separately billed tests performed on this date of service.
Data:
CXR 05/16/2024: No acute disease of the chest.
--- NOTE | 2024-05-16 08:52 | PTCARENOTE ---
Rec'd care of patient at 0700. Patient lethargic. Arousable to verbal and tactile stimuli. VSS. NSR on tele monitor. No edema. Pulses palpable. Pulse ox 95% on RA. Lung sounds diminished in b/l bases. +BS. Last BM 05/15 per patient. No UOP. Purewick
in place. Straight cath'd at 0120 for 250 cc's. LR and Magnesium infusing through right femoral TLC. Ordered labs drawn and sent. MSAS - no s/s of withdrawal at current time.
[2024-05-16] MEDS: FOLVITE 50.2 MG IV (09:34)
[2024-05-16] MEDS: ATIVAN 1 MG PO ×4 (10:04→21:59)
--- NOTE | 2024-05-16 11:50 | CM ---
CM reviewed medical records. Patient has been well known to Case Management. CM attempted to meet with patient in room. Patient was difficult to arouse and unable to participate in IA. CM will continue to follow for substance abuse resources.
PLAN: Home, [facility] to offer Drug and Alcohol services.
--- NOTE | 2024-05-16 11:59 | PTCARENOTE ---
PT/OT in to see patient. Patient shaky and unsteady. Vitals stable.
[2024-05-16 12:14] LABS: Glucose - Point of Care 136 mg/dl (70-99)
[2024-05-16] MEDS: DILAUDID 0.5 MG IV ×2 (12:21→21:32)
--- NOTE | 2024-05-16 12:31 | PTCARENOTE ---
Minor changes in assessment. Patient c/o abdominal pain. PRN Dilaudid administered (see MAR).
--- NOTE | 2024-05-16 13:50 | W.CON.NEPH ---
Consultation
-
Date/Time Consultation Requested: 05/16/2024 6:09AM
Date/Time Consultation Performed: 05/16/2024 1:50PM
Requesting Provider: Ren Senior
Performing Provider: No Maya
Reason for Consultation: AGMA
Medical History
-
Chief Complaint: Abdominal pain and dark stools
History of Present Illness:
This is a 68-year-old female with reflux on proton pump inhibitor therapy, anxiety on Ativan, but otherwise with limited medical history. She came to the emergency room with nausea, vomiting, and abdominal pain. She reports frequent stool loose
stools as well. Denies bloack or bloody stools.
On initial evaluation, patient is noted to have anion gap metabolic acidosis and has had multiple small episodes of emesis here in the ED.Her prior presentation also was notable for significant lactic acidosis.
Patient reports alcohol intake 'every once in a while'. She states it has been at least a few days since her last alcohol intake. She admits that she takes none of her prescribed medications at home. She denies any new / toxic / unusual ingestions.
Past Medical History
GERD
Anxiety depression
Alcohol use disorder
Accidental Tylenol overdose
Migraines
Hiatal hernia cholecystectomy
Gastritis
Cdiff
IBS
Past Surgical History: Other (Cholecystectomy Appendectomy Hysterectomy Mohs Procedure Right Upper Extremity Epicondylitis Surgery)
Social History
Tobacco: Former Smoker
Alcohol: Chronic Alcoholic (Patient known history of alcohol use disorder, but is currently denies any alcohol use)
Drug: None
Personal: Single
Family History
Family History: Not Pertinent
Allergies / Home Medications
Allergy/AdvReac Type Severity Reaction Status Date / Time
aspirin Allergy Unknown Verified 05/15/24 22:18
gabapentin Allergy Unknown Verified 05/15/24 22:18
NSAIDS (Non-Steroidal Allergy Unknown Verified 05/15/24 22:18
Anti-Inflamma
Jhdyfrv-YIV-[id number] Reductase Allergy Swelling Verified 05/15/24 22:18
Inhibitor
Sulfa (Sulfonamide Allergy Unknown Verified 05/15/24 22:18
Antibiotics)
�Medication �Instructions �Recorded �Confirmed �Type
lorazepam 0.5 mg tablet 0.5 mg PO HSPRN PRN anxiety/sleep 03/31/24 04/25/24 Rx
#7 tabs
pantoprazole 40 mg tablet,delayed 40 mg PO BID GERD #120 tabs 03/31/24 04/25/24 Rx
release
cholestyramine (with sugar) 4 gram 1 ea PO Q8H #60 ea 04/13/24 04/25/24 Rx
powder for susp in a packet
folic acid 1 mg tablet 1 mg PO DAILY #30 tabs 04/13/24 04/25/24 Rx
hydrocortisone acetate 25 mg 25 mg IL HS #12 ea 04/13/24 04/25/24 Rx
rectal suppository
magnesium oxide 500 mg capsule 500 mg PO BID #60 caps 04/13/24 04/25/24 Rx
potassium chloride 20 mEq 20 meq PO DAILY #30 tabs 04/13/24 04/25/24 Rx
tablet,extended release
sucralfate 100 mg/mL oral 1 g (10 mL) PO ACHS #414 mL 04/13/24 04/25/24 Rx
suspension
thiamine HCl (vitamin B1) 100 mg 100 mg PO BID #60 tabs 04/13/24 04/25/24 Rx
tablet
bisacodyl 10 mg rectal suppository 10 mg IL [id number] constipation 30 05/04/24 Rx
days #30 ea
cyanocobalamin (vitamin B-12) 1,000 mcg PO DAILY 30 days #30 tabs 05/04/24 Rx
1,000 mcg tablet
dicyclomine 20 mg tablet 20 mg PO TID Gastrointestinal 05/04/24 Rx
issue 30 days #90 tabs
Review of Systems
-
History Source: Patient
All other systems: Negative unless noted
Constitutional: Fatigue
Respiratory: Trouble Breathing
Abdomen/GI: Abdominal Pain, Nausea, Vomiting, Diarrhea and Anorexia
Physical Exam
Vital Signs
Vital Signs
Temp Pulse Resp BP Pulse Ox
97.8 F 77 15 104/76 94
05/16/24 11:15 05/16/24 13:00 05/16/24 13:00 05/16/24 13:00 05/16/24 13:00
Lab Results
WBC 26.1 10^3/uL (4.8-10.8) H 05/15/24 22:29
RBC 3.05 10^6/uL (4.20-5.40) L 05/15/24 22:
Hgb 9.6 g/dL (12.0-16.0) L 05/15/24 22:
Hct 28.8 % (37.0-47.0) L 05/15/24 22:
Plt Count 431 10^3/uL (130-400) H 05/15/24 22:29
eGFR 40.47 05/16/24 07:44
Phosphorus 4.7 mg/dl (2.5-4.5) H 05/16/24 01:29
Albumin 3.8 g/dl (3.5-5.0) 05/16/24 01:29
Physical Exam
General: Awake, No Distress, Nontoxic and Other (overall ill appearing, not able to answer a lot of my questions)
HEENT: Anicteric, Conjunctivae Clear, Ear/Nose Intact, Hearing Normal, Dentition Intact, Neck Supple and Other (dry mucous membranes)
Respiratory: Clear, Normal Excursion and Nonlabored Respirations
Cardiac: S1/S2, Regular Rate/Rhythm and No Edema
Breast: Deferred by me
Abdomen: Soft, Nontender, Nondistended, Normal Bowel Sounds and No Hepatosplenomegaly
Rectal: Deferred by Provider
Genito-urinary: No Costovertebral Tender
Musculoskeletal: No Clubbing, No Cyanosis and No Edema
Skin: No Rash, Warm, Dry, No Clubbing, No Cyanosis and Normal Turgor
Neuro: Other (unable to complete neuro assessment due to patient limitation)
Hematologic/Lymphatic: No Cervical Lymphadenopathy
Psych: Mood/afflect pleasant, Insight/judgement good and Appropriate
Data Reviewed
-
Radiology: Image Personally Visualized and interpreted (CXR clear)
Labs: Labs Reviewed by me and Discussed with Patient
Old Records: Reviewed
Assessment/Plan
-
Assessment:
AGMA
Lactic acidosis
Ketoacidosis
GERD
JULI (bl 0.9)
HypoMg
Alcohol use disorder
Plan:
AGMA
- gap is improving
- no osmolar gap noted, less likely toxic alcohols
- c/w IVF as you are
- repeat lactate
- aggressively replete Mg
- on empiric abx to cover
JULI
- baseline Cr 0.9, now elevated to 1.4 (peak 1.7)
- please place Kohli as patient had some issues with urinary retention in the past
- trend Cr and UOP
Per Dr. Cha discussion during last admission : discussed the potential of dialysis with her and she would not refuse if needed.
[2024-05-16 14:11] LABS: Blood Urea Nitrogen 17 mg/dl (7-17); Calcium 7.6 mg/dl (8.4-10.2); Carbon Dioxide 23 mmol/L (22-30); Chloride 103 mmol/L (98-107); Estimated Creatinine Clearance 38 ml/min; Glucose 124 mg/dl (70-99); Magnesium 2.5 mg/dl (1.6-2.3); Potassium 4.1 mmol/L (3.5-5.1); Sodium 138 mmol/L (135-145); eGFR 54.06
--- NOTE | 2024-05-16 14:34 | PTCARENOTE ---
Addendum entered by Maggie Suazo RN 05/16/24 15:05:
Lactic acid level- 1.5.
Original Note:
Indwelling platt catheter placed per Nephology. Repeat lactic drawn. VSS.
[2024-05-16 14:58] LABS: Lactic Acid 1.5 mmol/L (0.7-2.0)
[2024-05-16] MEDS: ZOFRAN 4 MG IV (15:31)
[2024-05-16] MEDS: HEPARIN 5000 UNITS SC ×2 (15:32→23:07)
[2024-05-16] MEDS: ROCEPHIN 1000 MG IV (17:22)
[2024-05-16] MEDS: STERILE WATER FOR INJECTION 10 ML IV (17:23)
[2024-05-16] MEDS: DILAUDID 1 MG IV (17:23)
[2024-05-16] MEDS: FLUSH (NSS) 1 FLUSH IV ×2 (18:00→18:05)
--- NOTE | 2024-05-16 18:00 | PTCARENOTE ---
Around 1430, patient c/o left elbow pain. Elbow observed to be bruised. Per patient, she sustained a fall at home prior to admission. Legal Recruiter notified. Ice pack applied and order to xray obtained. Additional orders for pain medication placed for
abdominal pain. Vitals stable. Ativan/Dilaudid/Zofran administered as needed. Patient feeling better overall. Sitting up in bed and requesting assistance with oral care and washing face.
[2024-05-16 18:10] LABS: Glucose - Point of Care 108 mg/dl (70-99)
--- NOTE | 2024-05-16 20:00 | PTCARENOTE ---
Pt Aox3 VSS, NSR on monitor, c/o pain in abdomen, PRN medication given. MSAS protocol. 2L NC placed HS for sats < 90%. NS @150ml/hr. Kohli in place adequate urine output. R1clhin with pillows, pt resting comfortable at the moment.
[2024-05-16 23:27] LABS: Glucose - Point of Care 109 mg/dl (70-99)
[2024-05-17] VITALS (22 sets, daily range): BP systolic 98–148; BP diastolic 59–103; BMI 25.0
[2024-05-17] MEDS: DILAUDID 1 MG IV ×5 (01:42→23:05)
--- NOTE | 2024-05-17 03:08 | PTCARENOTE ---
Pt C/o pain in feet, states that she gets out in the hospital, Uric acid levels to be drawn in AM.
[2024-05-17] MEDS: ATIVAN 1 MG PO (04:21)
[2024-05-17 04:53] LABS: Hematocrit 22.5 % (37.0-47.0); Hemoglobin 7.8 g/dL (12.0-16.0); Mean Corp Hgb Conc. 34.7 g/dL (33.0-37.0); Mean Corpuscular Hgb 32.1 pg (27.0-31.0); Mean Corpuscular Volume 92.6 fL (81.0-99.0); Mean Platelet Volume 9.2 fL (7.4-10.4); Platelet Count 215 10^3/uL (130-400); Red Blood Cell Count 2.43 10^6/uL (4.20-5.40); Red Cell Dist. Width 16.8 % (11.5-14.5); White Blood Cell Count 9.8 10^3/uL (4.8-10.8)
[2024-05-17 04:58] LABS: ALT (SGPT) 22 U/L (0-35); AST (SGOT) 39 U/L (14-36); Alkaline Phosphatase 95 U/L (38-126); Blood Urea Nitrogen 10 mg/dl (7-17); Calcium 8.4 mg/dl (8.4-10.2); Carbon Dioxide 28 mmol/L (22-30); Chloride 105 mmol/L (98-107); Estimated Creatinine Clearance 41 ml/min; Glucose 105 mg/dl (70-99); Magnesium 1.9 mg/dl (1.6-2.3); Phosphorus 2.1 mg/dl (2.5-4.5); Potassium 3.7 mmol/L (3.5-5.1); Sodium 139 mmol/L (135-145); Total Bilirubin 0.8 mg/dl (0.2-1.3); Total Protein 5.2 g/dl (6.3-8.2); Uric Acid 8.6 mg/dl (2.5-6.2); eGFR > 60.00
[2024-05-17 05:04] LABS: B-Hydroxybutyrate 0.93 mmol/L (0.02-0.27)
[2024-05-17] MEDS: DILAUDID 0.5 MG IV (05:33)
[2024-05-17] MEDS: LR 1000 IV (05:33)
[2024-05-17] MEDS: NSS (PRESERVATIVE FREE) 10 ML IV (07:15)
[2024-05-17] MEDS: ZOFRAN 4 MG IV ×2 (07:15→18:59)
[2024-05-17] MEDS: PROTONIX IV 40 MG IV (07:15)
[2024-05-17] MEDS: FOLVITE 1 MG PO (07:16)
[2024-05-17] MEDS: HEPARIN 5000 UNITS SC (07:16)
[2024-05-17] MEDS: THIAMINE INJECTION 200 MG IV (07:16)
[2024-05-17] MEDS: TYLENOL 650 MG PO (07:17)
--- NOTE | 2024-05-17 07:34 | W.PN.HOSP.TC ---
Today's Communication/Plan
-
Downgrade to med/surg
clear liquid diet to advance to low residue by lunch if tolerating
replete phos
IVF reduced rate to 70 cc/h, eventually will discontinue depending on oral intake.
discontinue abx, monitor off
pain control
Assessment / Plan
Assessment / Plan
Physical Exam
General: no acute distress, appears comfortable at this time though reporting significant pain
HEENT: normocephalic atraumatic moist mucosa
Respiratory: clear to auscultation b/l
Cardiac: S1/S2 and Tachycardia; No Murmur
GI: Soft, Non Distended, Normal Bowel Sounds, abd tenderness
Musculoskeletal: No Clubbing, No Cyanosis and No Edema
Neuro: AOx3
A/P: Patient is a 68y F with PMH significant for alcohol use disorder, GERD / gastritis and repeated admissions for N/V and associated anion gap metabolic acidosis who presents to ED c/o abd pain and N/V.
Anion Gap Metabolic Acidosis
Lactic Acidosis
Ketoacidosis
- Corporate Scheduler and Nephrology eval appreciated
- Anion gap on initial labs is 35 with combination of ketoacidosis (likely due to starvation +/- alcohol) and lactic acidosis (likely due to hypovolemia / hypoperfusion).
- Patient admits that she does not take medications as prescribed.
- No evidence of toxic ingestion. Osmolar gap is normal.
- IVF support
GERD / Gastritis / Esophagitis
- Admittedly non-compliant with PPI, Carafate, etc.
- IV PPI BID
- Supportive care including IVFs, antiemetics.
JULI resolved
- SCr = 1.7 compared to known baseline of 0.9.
- Likely secondary to volume losses +/- degree of ATN from hypoperfusion.
- IVF support as noted above.
- Avoid nephrotoxic agents.
- Monitor Renal function.
-Nephro eval appreciated
Hypomagnesemia
- Mg = 0.9 on initial labs. Repleted
- Monitor and replete as necessary
Hypophosphatemia
-monitor and replete as necessary
Leukocytosis resolved
Thrombocytosis resolved
- Suspect this is reactive / due to volume contraction and not necessarily infectious process.
- Follow cultures
- discontinue empiric abx, monitor off
Chronic Anemia
- H&H stable, cont to monitor
- h/o B12 deficiency and not compliant with supplementation.
Alcohol Use Disorder
- Patient reports no alcohol in several days.
- Alcohol withdrawal protocols during stay.
- Thiamine, folate, MVI replacement
PT/OT eval appreciated snf rehab
DVT Prophylaxis: Lovenox
Code Status: Full
Stable for downgrade to med/surg
I spent a total of 55 minutes with the patient or on the floor. More than 50% of this time involved counseling and coordination of care.
Anticipated Discharge: 24 - 48 hours
Subjective/Interval History
-
Date of Service: May 17, 2024
Seating up comfortably in chair. Appears well though endorses pain requesting increase in pain med. Patient also already requesting advancement in diet prior to starting clear liquids for breakfast. Discussed advancement to low residue by lunch
if she tolerates breakfast, patient agreeable with plan.
Objective Data
-
Labs:
Laboratory Results
05/17/24
04:20
WBC 9.8
Hgb 7.8 L
Hct 22.5 L
Plt Count 215 D
Sodium 139
Potassium 3.7
Chloride 105
Carbon Dioxide 28
BUN 10
Creatinine 1.0
Glucose 105 H
Calcium 8.4
Total Bilirubin 0.8
AST 39 H
ALT 22
Alkaline Phosphatase 95
Vital Signs:
Vital Signs
Temp Pulse Resp BP Pulse Ox
98.8 F 77 13 132/78 89
05/17/24 07:13 05/17/24 07:00 05/17/24 07:00 05/17/24 07:00 05/17/24 07:00
I&O
05/16/24 05/17/24 05/18/24
06:59 06:59 06:59
Intake Total 3750 / 3900 150 / 150
Output Total 250 / 250 3165 / 3240 75 / 75
Balance -250 / 0 585 / 660 75 / 75
--- NOTE | 2024-05-17 08:10 | W.PN.INTV ---
Today's Communication / Plan
Recommendations
Maintain euglycemia
Up OOB as tolerated
Pain control
Resume home meds
Uric acid level is elevated � defer starting allopurinol to primary team
Patient stable for downgrade out of ICU to Med-Surg. Head Strength And Conditioning Coach/Pulmonary service will now sign off. Please reconsult if there are any additional questions/concerns, or if patient's respiratory status deteriorates.
Assessment
-
Assessment: 68-year-old female former tobacco smoker with a past medical history of anxiety, alcohol use disorder with history of alcoholic hepatitis, gastritis, esophagitis, history of GIB, history of JULI, hiatal hernia and chronic hypotension who
presents with elevated blood glucose level + nausea/vomiting. Patient denies having history of diabetes mellitus. Last HbA1c: 5.1 in December 2023. Nausea/vomiting started night prior to arrival. She also endorses mid abdominal pain + loose stools.
No black or bloody stools and vomitus was nonbloody. She endorses alcohol use 'once in a while,' with last alcohol intake few days ago. She does report noncompliance to her prescribed medications. Initial vitals in the ER showed she was afebrile
to 98.1 �F, tachycardic to 121 bpm, tachypneic to 20 breaths/min, BP 157/90 and saturating 99% on room air. Labs showed leukocytosis to 26.1, Hb 9.6, blood gas showed pH 7.13, pCO2 29, serum bicarbonate 7, creatinine 1.7, initial glucose 280 with
POCT: 332, BOHB 8.42, initial lactate 7.9, magnesium level 0.9, AST 66, TSH WNL at 1.41, and UA showed +3 ketones and 11�15 urine WBC. UDS was negative + alcohol level was negative. Blood cultures + UCX were collected, and CXR showed no acute
cardiopulmonary disease. She was given crystalloids with NS 0.9% x 1.5L and Zosyn. Given her significant electrolyte derangements and tachycardia, she was admitted to the ICU for further care. Critical care services consulted for additional
management/recommendations.
Chronic conditions HEAD OF ADVERTISING: Chronic hypotension, anxiety disorder, esophagitis, gastritis, history of alcohol use disorder with alcoholic hepatitis, history of GI bleed, physical deconditioning/generalized weakness, history of JULI, history of hiatal
hernia, former tobacco use disorder
Impression:
#Nausea/vomiting with hyperglycemia - hyperglycemia now resolved
#Starvation ketoacidosis due to nausea/vomiting and reduced PO intake
#JULI (baseline Cr 0.9) - JULI now resolved
#Lactic acidosis - resolved as of 05/16/2024 at 14:39
#Metabolic acidosis with increased anion gap due to lactate + ketoacidosis - acidosis now resolved
#Hypomagnesemia - resolved
#Fall with left elbow pain
#Leukocytosis � likely reactive - now resolved
#Chronic anemia (baseline Hb: 8.5�10g/dL)
#Transaminitis with elevated AST - improving
#Alcohol use disorder with Hx of alcoholic hepatitis
#Hx of esophagitis/gastritis
#Hx of GIB
Plan:
- s/p IVF
- No longer need to trend lactate as it is now <2mmol/L
- Replete electrolytes with K>4, Mg>2
- Monitor BG with goal BG 140-180
- Antiemetics prn (QTc: 487ms from EKG yesterday)
- Pain control
- she has left elbow pain, I instructed the bedside RN to apply an ice pack to her left elbow and continue to monitor; no current signs of cellulitis or fluctuance palpated on exam; no erythema or c/f gout either
- Left elbow XR performed yesterday showing no acute fracture or dislocation
- Renally dose all medications
- Trend sCr and UOP
- Trend WBC and monitor for fever
- Given rocephin 1g q daily starting on 05/16 given she had urinary complaints with urinary frequency and has urine WBC 11-15 with many bacteria seen on UA
- ABx now stopped by hospitalist - defer ABx to them
- Follow up blood and urine Cx (both collected 05/16/2024)
- Blood culture from 05/16 shows anaerobic GPR + coagulase-negative Staphylococcus (negative for MRSA/MSSA) --> suspect this is contamination ---> continue to monitor with low threshold to resume ABx if pt spikes a fever or if WBC starts to
substanitally rise again
- PPI 40mg IV BID --> change to PO today
- Thiamine + folate
- MSAS with prn ativan
- Maintain SpO2 >90-94%
- Maintain MAP>65
- prn nebulized bronchodilators - not currently bronchospastic
- Incentive spirometer encouraged
- DVT ppx: SCDs for now as Hb 7.8 this AM; if Hb remains stable by tomorrow with no signs of bleeding, resume chemical ppx
Patient stable for downgrade out of ICU to Med-Surg. Head Strength And Conditioning Coach/Pulmonary service will now sign off. Thank you for allowing us to be involved in the care of this patient. Please reconsult if there are any additional questions/concerns, or if
patient's respiratory status deteriorates.
Total time spent today was 35 minutes for this encounter. Time includes reviewing laboratory test/imaging results, reviewing pertinent medical records, obtaining and reviewing medical history, performing an appropriate exam, ordering medications,
tests and procedures. Time also includes documentation of this encounter, coordinating patient care and communicating with other healthcare professionals. Total time does not include separately billed tests performed on this date of service.
Data:
CXR 05/16/2024: No acute disease of the chest.
Left elbow XR 05/16/2024: No evidence of acute fracture or dislocation.
Subjective Dataa
Subjective Data
Date of Service:
Date of Service: May 17, 2024
Chief Complaint: Head Strength And Conditioning Coach Follow Up
Subjective:
Seen and evaluated today at bedside. Still has abdominal discomfort but it is not worsening. Also endorses feet discomfort/pain. Heart rate 96, BP 108/68 and saturating 92% on room air. She currently denies chest pain, KHAN, fevers or chills
Review of Systems
General: Other (Negative unless mentioned above)
Objective Data
Data Reviewed
Vital Signs / I&O / Oxygen:
Vital Signs
Temp Pulse Resp BP Pulse Ox
98.8 F 104 17 112/80 90
05/17/24 07:13 05/17/24 10:00 05/17/24 10:00 05/17/24 10:00 05/17/24 10:00
Intake and Output
05/16/24 05/17/24 05/18/24
06:59 06:59 06:59
Intake Total 3750 / 3900 1579 / 1579
Output Total 250 / 250 3165 / 3240 250 / 250
Balance -250 / 0 585 / 660 1329 / 1329
SaO2 90
Physical Exam
General: Respiratory Distress (negative), Chills (negative) and Sweats (negative)
HEENT: Normocephalic and Anicteric
Cardiovascular: S1-S2 and Peripheral Edema (negative)
Respiratory: Wheeze (negative), Crackles (negative), Rhonchi (negative) and Non-Labored Respirations
GI: Soft, Non Distended, Non Tender and Normal Bowel Sounds
Neurology: AO x 3 and Tremors (negative)
Skin: Warm, Dry, Jaundice (negative) and Other (Erythema with mild edema of left olecranon process)
Labs/Micro/Reports
Lab Data
05/17/24 04:20
05/17/24 04:20
Microbiology
05/16/24 01:29 Blood/Venous Blood Culture - Preliminary
Positive culture in progress
05/16/24 01:29 Blood/Venous Gram Stain - Final
05/16/24 01:29 Blood/Venous Blood Culture - Preliminary
No Growth in 24 hours- Final report to follow
[2024-05-17] MEDS: POTASSIUM PHOSPHATE 259.0909 MEQ IV (09:27)
--- NOTE | 2024-05-17 09:35 | PTCARENOTE ---
Patient downgraded to M/S.
[2024-05-17 11:12] LABS: Glycohemoglobin (HgbA1c) 5.2 % (4.0-5.6)
[2024-05-17 13:35] LABS: Glucose - Point of Care 128 mg/dl (70-99)
--- NOTE | 2024-05-17 13:56 | W.PN.NEPH.PH ---
Today's Communication / Plan
-
- d/c fluids
- maintain platt
Assessment/Plan
-
Assessment:
AGMA
Lactic acidosis
Ketoacidosis
GERD
JULI (bl 0.9)
HypoMg
Alcohol use disorder
Plan:
AGMA
- gap is closed
- no osmolar gap noted, less likely toxic alcohols
- off fluids
- lactate normalized
- aggressively replete Mg
- on empiric abx to cover
JULI
- baseline Cr 0.9, now normalized to 1 (peak 1.7)
- Platt in place, likely some component of obstruction
- excellent UOP (3L)
- elevated uric acid noted, could consider allopurinol prior to d/c
Per Dr. Cha discussion during last admission : discussed the potential of dialysis with her and she would not refuse if needed.
-
-
Date of Service: May 17, 2024
CC / HPI / ROS
-
Chief Complaint:
JULI, AGMA
History of Present Illness:
gap closed
JULI resolved
Review of Systems:
feeling tired
Labs
-
Labs:
WBC 9.8 10^3/uL (4.8-10.8) 05/17/24 04:20
RBC 2.43 10^6/uL (4.20-5.40) L 05/17/24 04:20
Hgb 7.8 g/dL (12.0-16.0) L 05/17/24 04:20
Hct 22.5 % (37.0-47.0) L 05/17/24 04:20
Plt Count 215 10^3/uL (130-400) D 05/17/24 04:20
Sodium 139 mmol/L (135-145) 05/17/24 04:20
Potassium 3.7 mmol/L (3.5-5.1) 05/17/24 04:20
Chloride 105 mmol/L (98-107) 05/17/24 04:20
Carbon Dioxide 28 mmol/L (22-30) 05/17/24 04:20
BUN 10 mg/dl (7-17) 05/17/24 04:20
Creatinine 1.0 mg/dL (0.6-1.0) 05/17/24 04:20
eGFR > 60.00 05/17/24 04:20
Glucose 105 mg/dl (70-99) H 05/17/24 04:20
Calcium 8.4 mg/dl (8.4-10.2) 05/17/24 04:20
Phosphorus 2.1 mg/dl (2.5-4.5) L 05/17/24 04:20
Albumin 3.0 g/dl (3.5-5.0) L 05/17/24 04:20
Physical Exam
-
Vital Signs:
Vital Signs
Temp Pulse Resp BP Pulse Ox
99.0 F 97 19 108/68 90
05/17/24 11:00 05/17/24 13:00 05/17/24 13:00 05/17/24 13:00 05/17/24 10:00
Cardiovascular:: Regular rate and rhythm
Respiratory:: Bilateral: CTA
Lung Excursion:: Normal
Abdomen:: Nontender and Soft
Bowel Sounds:: Normal
Extremity Edema:: None: Bilateral:
Platt Catheter: Yes
[2024-05-17 15:55] LABS: Glucose - Point of Care 98 mg/dl (70-99)
--- NOTE | 2024-05-17 18:33 | PTCARENOTE ---
patient in bed. RASS -1 MSAS 4. VS stable . [address] HOB elevated
[2024-05-17] MEDS: PROTONIX 40 MG PO (19:22)
--- NOTE | 2024-05-17 20:00 | PTCARENOTE ---
Rec'd pt resting in bed, assisted to bathroom- had bm, back to bed, cooperative, follows commands, SR, bp stable, + pulses, RA, lungs decr in bases, sat 95, + bowel sounds, c/o abd pain- was given dilaudid previous shift, slightly improved,platt
draining yellow urine, pt refuses to wear sequentials- informed of importance to prevent DVT, still refused
[2024-05-17] MEDS: CARAFATE SUSPENSION 1 GM PO (20:46)
--- NOTE | 2024-05-17 23:09 | PTCARENOTE ---
dilaudid 1mg iv given for abd pain
[2024-05-17] MEDS: ATIVAN 0.5 MG PO (23:30)
--- NOTE | 2024-05-17 23:31 | PTCARENOTE ---
ativan 0.5mg po given as requested
[2024-05-18] VITALS: BP 138/76
[2024-05-18 04:00] VITALS: BP 129/70
[2024-05-18] MEDS: DILAUDID 1 MG IV ×3 (04:26→14:11)
--- NOTE | 2024-05-18 04:26 | PTCARENOTE ---
dilaudid 1mg iv given for abd pain
[2024-05-18 04:29] LABS: Hematocrit 22.8 % (37.0-47.0); Hemoglobin 7.8 g/dL (12.0-16.0); Mean Corp Hgb Conc. 34.2 g/dL (33.0-37.0); Mean Corpuscular Hgb 31.2 pg (27.0-31.0); Mean Corpuscular Volume 91.2 fL (81.0-99.0); Mean Platelet Volume 9.2 fL (7.4-10.4); Platelet Count 173 10^3/uL (130-400); Red Cell Dist. Width 16.9 % (11.5-14.5); White Blood Cell Count 6.1 10^3/uL (4.8-10.8)
[2024-05-18 05:07] LABS: ALT (SGPT) 21 U/L (0-35); AST (SGOT) 38 U/L (14-36); Alkaline Phosphatase 87 U/L (38-126); Blood Urea Nitrogen 6 mg/dl (7-17); Calcium 8.7 mg/dl (8.4-10.2); Carbon Dioxide 32 mmol/L (22-30); Chloride 103 mmol/L (98-107); Estimated Creatinine Clearance 46 ml/min; Glucose 109 mg/dl (70-99); Magnesium 1.4 mg/dl (1.6-2.3); Phosphorus 3.3 mg/dl (2.5-4.5); Potassium 3.4 mmol/L (3.5-5.1); Sodium 143 mmol/L (135-145); Total Bilirubin 0.5 mg/dl (0.2-1.3); Total Protein 5.2 g/dl (6.3-8.2); eGFR > 60.00
--- NOTE | 2024-05-18 05:13 | PTCARENOTE ---
inc of loose stool, Chg bath done, linens changed
[2024-05-18 05:14] VITALS: BMI 25.9
[2024-05-18] MEDS: KCL 40 MEQ PO (05:54)
[2024-05-18] MEDS: MAGNESIUM SULFATE 102 GRAMS IV (05:54)
--- NOTE | 2024-05-18 05:56 | PTCARENOTE ---
40 kcl po given & 1 gm mag sulfate over 1hr hung per order
--- NOTE | 2024-05-18 07:36 | W.PN.HOSP.TC ---
Today's Communication/Plan
-
low fat low residue diet
6 small meals a day
questran bentyl carafate
pain control
ativan prn
compazine prn
PT/OT
MSAS protocol discontinued, no significant withdrawal noted
replete Magnesium potassium
Assessment / Plan
Assessment / Plan
Physical Exam
General: no acute distress, appears comfortable at this time though reporting significant pain
HEENT: normocephalic atraumatic moist mucosa
Respiratory: clear to auscultation b/l
Cardiac: S1/S2 and Tachycardia; No Murmur
GI: Soft, Non Distended, Normal Bowel Sounds, abd tenderness
Musculoskeletal: No Clubbing, No Cyanosis and No Edema
Neuro: AOx3
A/P: Patient is a 68y F with PMH significant for alcohol use disorder, GERD / gastritis and repeated admissions for N/V and associated anion gap metabolic acidosis who presents to ED c/o abd pain and N/V.
Anion Gap Metabolic Acidosis
Lactic Acidosis
Ketoacidosis
- Hitch Technician and Nephrology eval appreciated
- Anion gap on initial labs is 35 with combination of ketoacidosis (likely due to starvation +/- alcohol) and lactic acidosis (likely due to hypovolemia / hypoperfusion).
- Patient admits that she does not take medications at home
- No evidence of toxic ingestion. Osmolar gap is normal.
- IVF support complete
GERD / Gastritis / Esophagitis
suspected gastroparesis vs IBS
- non-compliant with medications at home
- cont PO PPI BID
- carafate
-bentyl
-questran
-low residue low fat diet 6 meals a day
Uric acid elevation 8.6
uric acid level was normal a month ago
review of records notes intermittent elevated and normal values
will check repeat
JULI resolved
- Initial Cr 1.7 since trended back to baseline 0.9
- Likely secondary to volume losses +/- degree of ATN from hypoperfusion.
- IVF completed
- Avoid nephrotoxic agents.
- Monitor Renal function.
-Nephro eval appreciated
Hypomagnesemia
Hypophosphatemia
-monitor and replete as necessary
Leukocytosis resolved
Thrombocytosis resolved
- Suspect this is reactive / due to volume contraction as opposed to infection
- Follow cultures, 1st set of cultures noted anaerobic Gram+ bacilli and aerobic coag neg staph, 2nd culture from same day remains neg, off abx afebrile no leukocytosis
-1st culture likely contaminated
- empiric abx discontinued, cont monitoring off
Chronic Anemia
B12 def
- H&H stable, cont to monitor
- B12 supplementation
Alcohol Use Disorder
- Patient reports no alcohol in several days.
- Thiamine, folate, MVI replacement
-no significant withdrawal symptoms noted. discontinued MSAS protocol
Anxiety
ativan prn
PT/OT eval appreciated snf rehab
DVT Prophylaxis: Lovenox
Code Status: Full
I spent a total of 55 minutes with the patient or on the floor. More than 50% of this time involved counseling and coordination of care.
Anticipated Discharge: 24 - 48 hours
Subjective/Interval History
-
Date of Service: May 18, 2024
Seen and examined at bedside in no acute distress sitting up comfortably in bed. Reports abd pain and diarrhea. Tolerating diet.
Objective Data
-
Labs:
Laboratory Results
05/18/24
04:22
WBC 6.1
Hgb 7.8 L
Hct 22.8 L
Plt Count 173
Sodium 143
Potassium 3.4 L
Chloride 103
Carbon Dioxide 32 H
BUN 6 L
Creatinine 0.9
Glucose 109 H
Calcium 8.7
Total Bilirubin 0.5
AST 38 H
ALT 21
Alkaline Phosphatase 87
Vital Signs:
Vital Signs
Temp Pulse Resp BP Pulse Ox
99.0 F 71 21 129/70 95
05/17/24 23:08 05/18/24 04:00 05/18/24 04:00 05/18/24 04:00 05/17/24 20:00
I&O
05/17/24 05/18/24 05/19/24
06:59 06:59 06:59
Intake Total 3750 / 3900 2629 / 2629
Output Total 3165 / 3240 2835 / 2835
Balance 585 / 660 -206 / -206
[2024-05-18] MEDS: VITAMIN B-12 1000 MCG PO (07:48)
[2024-05-18] MEDS: PROTONIX 40 MG PO ×2 (07:48→20:04)
[2024-05-18] MEDS: FOLVITE 1 MG PO (07:48)
[2024-05-18] MEDS: VITAMIN B1 100 MG PO (07:48)
[2024-05-18] MEDS: CARAFATE SUSPENSION 1 GM PO ×4 (07:49→23:09)
[2024-05-18] MEDS: MAGNESIUM SULFATE 50 IV (09:24)
--- NOTE | 2024-05-18 09:25 | W.PN.NEPH.PH ---
Today's Communication / Plan
-
replete lytes
Assessment/Plan
-
Assessment:
AGMA
Lactic acidosis
Ketoacidosis
GERD
JULI (bl 0.9)
HypoMg
Alcohol use disorder
Plan:
follow BMP, Mag
replete K and Mag
maintain platt for now, likely postAKI/obstructive diuresis
can attempt voiding trial in am
may need abdominal imaging, likely colitis, known diverticulosis
-
-
Date of Service: May 18, 2024
CC / HPI / ROS
-
Chief Complaint:
JULI, AGMA
History of Present Illness:
now with metabolic alkalosis
Mag low 1.4
K low 3.4
JULI resolved
hgb low 7.8
Review of Systems:
c/o diffuse abdominal pain
diarrhea
platt in place. nonoliguric
Labs
-
Labs:
WBC 6.1 10^3/uL (4.8-10.8) 05/18/24 04:22
RBC 2.50 10^6/uL (4.20-5.40) L 05/18/24 04:22
Hgb 7.8 g/dL (12.0-16.0) L 05/18/24 04:22
Hct 22.8 % (37.0-47.0) L 05/18/24 04:22
Plt Count 173 10^3/uL (130-400) 05/18/24 04:22
Sodium 143 mmol/L (135-145) 05/18/24 04:22
Potassium 3.4 mmol/L (3.5-5.1) L 05/18/24 04:22
Chloride 103 mmol/L (98-107) 05/18/24 04:22
Carbon Dioxide 32 mmol/L (22-30) H 05/18/24 04:22
BUN 6 mg/dl (7-17) L 05/18/24 04:22
Creatinine 0.9 mg/dL (0.6-1.0) 05/18/24 04:22
eGFR > 60.00 05/18/24 04:22
Glucose 109 mg/dl (70-99) H 05/18/24 04:22
Calcium 8.7 mg/dl (8.4-10.2) 05/18/24 04:22
Phosphorus 3.3 mg/dl (2.5-4.5) 05/18/24 04:22
Albumin 3.0 g/dl (3.5-5.0) L 05/18/24 04:22
Physical Exam
-
Vital Signs:
Vital Signs
Temp Pulse Resp BP Pulse Ox
99.0 F 71 21 129/70 95
05/17/24 23:08 05/18/24 04:00 05/18/24 04:00 05/18/24 04:00 05/17/24 20:00
Cardiovascular:: Regular rate and rhythm
Respiratory:: Bilateral: Coarse
Lung Excursion:: Normal
Abdomen:: Soft and Tender
Bowel Sounds:: Normal
Extremity Edema:: +1: Bilateral:
[2024-05-18 10:02] VITALS: BP 152/89
--- NOTE | 2024-05-18 10:03 | PTCARENOTE ---
Received pt handoff. Pt slightly forgetful c/o abdomen pain in all 4 quadrants as well as feet pain from past fall. NSR, afebrile, positive palpable pulses in all extremities w/ no edema. 94% RA, decreased at the bases. Positive bowel sounds in all
four quadrants. Abdomen is tender to the touch. Incontinent bowel movement in the morning of loose stools. Kohli catheter CDI draining clear yellow urine. Right femoral TL picc. Pt. ate about 90% of her breakfast. Mag gtt hanging. Call campos within
reach.
--- NOTE | 2024-05-18 11:01 | CM ---
CM following re: discharge planning.
Reviewed pt's chart, met with pt.
Pt reports she lives with her landlord/friend and her son in a one story home, with no steps to enter. 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 Pt reports she usually drinks Bloody
Ivette, no every day, last drink she has 2 days prior to admission. Pt declined having alcohol related issue, declined to meet with [facility] and declined to talk about her alcohol consumptions. Pt reports he landlord will transport home at discharge. Pt
also stated she has a pain when she talks and CM respectfully ended up the interview.
PCP: Dr. Ishaan Ames
Pharmacy; [facility].
D/C plan: home no needs. friend to transport at discharge.
CM will follow with discharge plan updates as hospitalization progresses
[2024-05-18 13:08] LABS: Troponin I < 0.012 ng/ml
[2024-05-18 14:04] VITALS: BP 125/84
[2024-05-18] MEDS: FLUSH (NSS) 1 FLUSH IV (14:12)
--- NOTE | 2024-05-18 14:38 | PTCARENOTE ---
Received pt from ICU via WC; accompanied by volunteer. Pt AAO x3, ALVAREZ well, ambulatory to bed with assist x1/walker, sl unsteady w/OOB activity; fall prec maintained. VSS. On room air- pulse ox 97%, no c/o SOB. Abd soft, rounded, tender, pt c/o
mid- and pain '06/02' requesting IV Dilaudid- 'Nothing else helps'. BS (+); pt reports loose BM's. Pt stated she voided in ICU after Kohli pulled earlier this shift. Afebrile; skin warm/dry; Rt groin site dsg D/I. Oriented to 4east, currently
resting in bed. Will continue to monitor.
[2024-05-18 16:23] VITALS: BP 123/84
--- NOTE | 2024-05-18 16:34 | PTCARENOTE ---
Pt AAO x3, ALVAREZ well; ambulatory to BR with minimal assistance/walker, no c/o weakness/dizziness; pt sl unsteady w/OOB activity; fall prec maintained. VSS. On room air- pulse ox 97%. Pt c/o mid-abd discomfort; good effect with Iv Dilaudid. Voiding
in BR without difficulty. Resting in bed at present. Will continue to monitor.
[2024-05-18] MEDS: BENTYL 20 MG PO ×2 (16:38→23:09)
[2024-05-18] MEDS: QUESTRAN 4 GRAM PO ×2 (16:38→23:39)
[2024-05-18] MEDS: ROXICODONE 5 MG PO (19:54)
[2024-05-18] MEDS: ATIVAN 0.25 MG PO (23:09)
[2024-05-18 23:53] VITALS: BP 151/85
[2024-05-19] MEDS: ROXICODONE 5 MG PO ×4 (01:36→22:09)
[2024-05-19 07:05] VITALS: BP 141/87
--- NOTE | 2024-05-19 07:38 | W.PN.HOSP.TC ---
Today's Communication/Plan
-
monitor and replete electrolytes as necessary
PT/OT
low residue diet discontinued per patient request
cont low fat diet six small meals a day
Assessment / Plan
Assessment / Plan
Physical Exam
General: no acute distress, comfortable
HEENT: normocephalic atraumatic moist mucosa
Respiratory: clear to auscultation b/l
Cardiac: S1/S2 and Tachycardia; No Murmur
GI: Soft, Non Distended, Normal Bowel Sounds, abd tenderness
Musculoskeletal: No Clubbing, No Cyanosis and No Edema
Neuro: AOx3
A/P: Patient is a 68y F with PMH significant for alcohol use disorder, GERD / gastritis and repeated admissions for N/V and associated anion gap metabolic acidosis who presents to ED c/o abd pain and N/V.
Anion Gap Metabolic Acidosis
Lactic Acidosis
Ketoacidosis
- Grain Farmworker and Nephrology eval appreciated
- Anion gap on initial labs is 35 with combination of ketoacidosis (likely due to starvation +/- alcohol) and lactic acidosis (likely due to hypovolemia / hypoperfusion).
- Patient admits that she does not take medications at home
- No evidence of toxic ingestion. Osmolar gap normal.
- IVF support complete
GERD / Gastritis / Esophagitis
suspected gastroparesis vs IBS
- non-compliant with medications at home
- cont PO PPI BID
- carafate
-bentyl
-questran
-fat diet 6 meals a day, diet advanced from low residue per patient's request
Uric acid elevation 8.6
uric acid level was normal a month ago
review of records notes intermittent elevated and normal values
repeat normal
JULI resolved
- Initial Cr 1.7 since trended down
- Likely secondary to volume losses +/- degree of ATN from hypoperfusion.
- IVF completed
- Avoid nephrotoxic agents.
- Monitor Renal function.
-Nephro eval appreciated
Hypomagnesemia
Hypophosphatemia
-monitor and replete as necessary
Leukocytosis resolved
Thrombocytosis resolved
- Suspect this is reactive / due to volume contraction as opposed to infection
- Follow cultures, 1st set of cultures noted anaerobic Gram+ bacilli and aerobic coag neg staph, 2nd culture from same day remains neg, off abx afebrile no leukocytosis
-1st culture likely contaminated
- empiric abx discontinued, cont monitoring off
Chronic Anemia
B12 def
- H&H stable, cont to monitor
- B12 supplementation
Alcohol Use Disorder
- Patient reports no alcohol in several days.
- Thiamine, folate, MVI replacement
-no significant withdrawal symptoms noted. discontinued MSAS protocol
Anxiety
ativan prn
PT/OT eval appreciated snf rehab
DVT Prophylaxis: Lovenox
Code Status: Full
I spent a total of 55 minutes with the patient or on the floor. More than 50% of this time involved counseling and coordination of care.
Anticipated Discharge: 24 - 48 hours
Subjective/Interval History
-
Date of Service: May 19, 2024
no acute distress, appears comfortable.
Objective Data
-
Labs:
Laboratory Results
05/19/24
07:11
WBC Pending
Hgb Pending
Hct Pending
Plt Count Pending
Sodium Pending
Potassium Pending
Chloride Pending
Carbon Dioxide Pending
BUN Pending
Creatinine Pending
Glucose Pending
Calcium Pending
Total Bilirubin Pending
AST Pending
ALT Pending
Alkaline Phosphatase Pending
Vital Signs:
Vital Signs
Temp Pulse Resp BP Pulse Ox
98.1 F 82 17 151/85 94
05/18/24 23:53 05/18/24 23:53 05/18/24 23:53 05/18/24 23:53 05/18/24 23:53
I&O
05/18/24 05/19/24 05/20/24
06:59 06:59 06:59
Intake Total 2629 / 2629 1600 / 1600
Output Total 2835 / 2835 1450 / 1450
Balance -206 / -206 150 / 150
[2024-05-19] MEDS: BENTYL 20 MG PO ×3 (07:48→23:22)
[2024-05-19] MEDS: CARAFATE SUSPENSION 1 GM PO ×4 (07:48→20:45)
[2024-05-19] MEDS: VITAMIN B1 100 MG PO (07:49)
[2024-05-19] MEDS: VITAMIN B-12 1000 MCG PO (07:49)
[2024-05-19] MEDS: FOLVITE 1 MG PO (07:49)
[2024-05-19] MEDS: PROTONIX 40 MG PO ×2 (07:49→20:45)
[2024-05-19 08:14] LABS: Hematocrit 24.6 % (37.0-47.0); Hemoglobin 8.4 g/dL (12.0-16.0); Mean Corp Hgb Conc. 34.1 g/dL (33.0-37.0); Mean Corpuscular Hgb 32.4 pg (27.0-31.0); Mean Platelet Volume 9.8 fL (7.4-10.4); Platelet Count 177 10^3/uL (130-400); Red Blood Cell Count 2.59 10^6/uL (4.20-5.40); Red Cell Dist. Width 16.7 % (11.5-14.5); White Blood Cell Count 5.9 10^3/uL (4.8-10.8)
[2024-05-19 08:23] VITALS: BP 141/87
[2024-05-19 09:00] LABS: ALT (SGPT) 20 U/L (0-35); AST (SGOT) 33 U/L (14-36); Albumin 3.3 g/dl (3.5-5.0); Alkaline Phosphatase 83 U/L (38-126); Blood Urea Nitrogen 8 mg/dl (7-17); Calcium 9.3 mg/dl (8.4-10.2); Carbon Dioxide 33 mmol/L (22-30); Chloride 99 mmol/L (98-107); Estimated Creatinine Clearance 52 ml/min; Glucose 108 mg/dl (70-99); Magnesium 1.4 mg/dl (1.6-2.3); Phosphorus 3.3 mg/dl (2.5-4.5); Potassium 3.5 mmol/L (3.5-5.1); Sodium 141 mmol/L (135-145); Total Bilirubin 0.4 mg/dl (0.2-1.3); Total Protein 5.6 g/dl (6.3-8.2); Uric Acid 5.8 mg/dl (2.5-6.2); eGFR > 60.00
[2024-05-19] MEDS: QUESTRAN 4 GRAM PO ×3 (09:40→23:22)
--- NOTE | 2024-05-19 10:04 | PN.CDI ---
CDI
- -
CDI:
Physician Documentation Request
Admit Date: 05/16/24 02:32
Dear Doctor Annika,
Please review the following and provide your response in the progress notes.
Clinical Indicators:
- 05/15 admission: WBC 26.1, HR 100's, RR 20-30's, Lactic acid 7.9
- 05/18 PN 'Anion Gap Metabolic Acidosis, lactic acidosis, ketoacidosis'
- 'ketoacidosis (likely due to starvation +/- alcohol) and lactic acidosis (likely due to hypovolemia / hypoperfusion)'
- 'Leukocytosis...thrombocytosis...Suspect this is reactive / due to volume contraction as opposed to infection'
- 'JULI'
Please clarify which most accurately describes the patient:
SIRS due to a non-infectious source metabolic Acidosis, lactic acidosis, ketoacidosis
SIRS due to a non-infectious source with acute organ dysfunction - JULI
Other
Use of terms such as suspected, likely, concern for, or probable (associated with a specific diagnosis that is being evaluated, monitored, or treated as if it exists) are acceptable and can be coded in the inpatient setting, when documented at the
time of discharge.
Thank you,
Riccardo Cross RN
CDI Specialist
Please use your independent medical judgment in providing your response.
--- NOTE | 2024-05-19 11:21 | W.PN.NEPH.PH ---
Today's Communication / Plan
-
replete lytes
Assessment/Plan
-
Assessment:
AGMA
Lactic acidosis
Ketoacidosis
GERD
JULI (bl 0.9)
HypoMg
Alcohol use disorder
Plan:
follow BMP, Mag
replete K and Mag today
check PVR
-
-
Date of Service: May 19, 2024
CC / HPI / ROS
-
Chief Complaint:
JULI, AGMA
History of Present Illness:
now with metabolic alkalosis
Mag low 1.4
K low 3.4
JULI resolved
hgb low 7.8
Review of Systems:
c/o diffuse abdominal pain
diarrhea
platt in place. nonoliguric
Labs
-
Labs:
WBC 5.9 10^3/uL (4.8-10.8) 05/19/24 07:11
RBC 2.59 10^6/uL (4.20-5.40) L 05/19/24 07:11
Hgb 8.4 g/dL (12.0-16.0) L 05/19/24 07:11
Hct 24.6 % (37.0-47.0) L 05/19/24 07:11
Plt Count 177 10^3/uL (130-400) 05/19/24 07:11
Sodium 141 mmol/L (135-145) 05/19/24 07:11
Potassium 3.5 mmol/L (3.5-5.1) 05/19/24 07:11
Chloride 99 mmol/L (98-107) 05/19/24 07:11
Carbon Dioxide 33 mmol/L (22-30) H 05/19/24 07:11
BUN 8 mg/dl (7-17) 05/19/24 07:11
Creatinine 0.8 mg/dL (0.6-1.0) 05/19/24 07:11
eGFR > 60.00 05/19/24 07:11
Glucose 108 mg/dl (70-99) H 05/19/24 07:11
Calcium 9.3 mg/dl (8.4-10.2) 05/19/24 07:11
Phosphorus 3.3 mg/dl (2.5-4.5) 05/19/24 07:11
Albumin 3.3 g/dl (3.5-5.0) L 05/19/24 07:11
Physical Exam
-
Vital Signs:
Vital Signs
Temp Pulse Resp BP Pulse Ox
97.5 F 95 20 141/87 96
05/19/24 07:05 05/19/24 07:05 05/19/24 07:05 05/19/24 07:05 05/19/24 07:05
Cardiovascular:: Regular rate and rhythm
Respiratory:: Bilateral: Coarse
Lung Excursion:: Normal
Abdomen:: Nontender and Soft
Bowel Sounds:: Normal
Extremity Edema:: None: Bilateral:
[2024-05-19] MEDS: MAGNESIUM SULFATE 100 IV (11:48)
[2024-05-19] MEDS: DILAUDID 1 MG IV (11:49)
[2024-05-19] MEDS: KCL 40 MEQ PO (11:51)
[2024-05-19 13:44] VITALS: BP 124/77; PULSE 89
[2024-05-19 15:05] VITALS: BP 128/83
--- NOTE | 2024-05-19 15:10 | VNURNOTE ---
Home Health Liaison met with patient at bedside to discuss [facility] nurse/therapy, visits, schedule and homebound status. Patient is agreeable and understands that visits at home will be 1-3 x per week to assess and teach medical management. Patient
reports she needs assist with medications. She lives with landlord/'friend' and friend's son. Reviewed PCP info. Patient thinks it's been about a year since last seen by PCP, he lives in [facility]. Reviewed [facility] eligability and that patient must be
current with PCP in order to receive services. [facility] Intake notified. Patient is considering switching PCPs to a closer one.
[facility] brochure provided with contact information. Patient is aware that [facility] will contact them for start of care within a few days after discharge from .
[facility] referral completed in [facility].
--- NOTE | 2024-05-19 17:22 | CM ---
Spoke with pt at bedside .
She said she would like [facility] Dionne [facility]ster for [facility] notified via TT.
Asked if pt would like any recourses from [facility] she declined.
PLAn Home with [facility] if accepted
[2024-05-19] MEDS: ATIVAN 0.25 MG PO (23:23)
[2024-05-19 23:52] VITALS: BP 122/79
[2024-05-20] MEDS: ROXICODONE 5 MG PO ×5 (02:16→21:16)
[2024-05-20 04:59] LABS: Hematocrit 23.9 % (37.0-47.0); Mean Corp Hgb Conc. 33.5 g/dL (33.0-37.0); Mean Corpuscular Hgb 30.9 pg (27.0-31.0); Mean Corpuscular Volume 92.3 fL (81.0-99.0); Mean Platelet Volume 9.7 fL (7.4-10.4); Platelet Count 168 10^3/uL (130-400); Red Blood Cell Count 2.59 10^6/uL (4.20-5.40); White Blood Cell Count 5.8 10^3/uL (4.8-10.8)
[2024-05-20 05:33] LABS: ALT (SGPT) 19 U/L (0-35); AST (SGOT) 31 U/L (14-36); Albumin 3.2 g/dl (3.5-5.0); Alkaline Phosphatase 77 U/L (38-126); Blood Urea Nitrogen 12 mg/dl (7-17); Calcium 9.2 mg/dl (8.4-10.2); Carbon Dioxide 33 mmol/L (22-30); Chloride 99 mmol/L (98-107); Estimated Creatinine Clearance 46 ml/min; Glucose 113 mg/dl (70-99); Magnesium 1.7 mg/dl (1.6-2.3); Phosphorus 2.6 mg/dl (2.5-4.5); Potassium 3.6 mmol/L (3.5-5.1); Sodium 140 mmol/L (135-145); Total Bilirubin 0.3 mg/dl (0.2-1.3); Total Protein 5.5 g/dl (6.3-8.2); eGFR > 60.00
[2024-05-20 07:05] VITALS: BP 122/81
--- NOTE | 2024-05-20 07:31 | W.PN.HOSP.TC ---
Today's Communication/Plan
-
monitor and replete lytes
diet advanced to regular per patient request
pain control
PT/OT
Assessment / Plan
Assessment / Plan
Physical Exam
General: no acute distress, comfortable
HEENT: normocephalic atraumatic moist mucosa
Respiratory: clear to auscultation b/l
Cardiac: S1/S2 and Tachycardia; No Murmur
GI: Soft, Non Distended, Normal Bowel Sounds, abd tenderness
Musculoskeletal: No Clubbing, No Cyanosis and No Edema
Neuro: AOx3
A/P: Patient is a 68y F with PMH significant for alcohol use disorder, GERD / gastritis and repeated admissions for N/V and associated anion gap metabolic acidosis who presents to ED c/o abd pain and N/V.
Anion Gap Metabolic Acidosis
Lactic Acidosis
Ketoacidosis
- Network Engineering Advisor and Nephrology eval appreciated
- Anion gap on initial labs is 35 with combination of ketoacidosis (likely due to starvation +/- alcohol) and lactic acidosis (likely due to hypovolemia / hypoperfusion).
- Patient admits that she does not take medications at home
- No evidence of toxic ingestion. Osmolar gap normal.
- IVF support complete
GERD / Gastritis / Esophagitis
suspected gastroparesis vs IBS
- non-compliant with medications at home
- cont PO PPI BID
- carafate
-bentyl
-questran
-fat diet 6 meals a day, diet advanced from low residue per patient's request. Low fat restriction later lifted per patient's request
Uric acid elevation 8.6
uric acid level was normal a month ago
review of records notes intermittent elevated and normal values
repeat normal
JULI resolved
- Initial Cr 1.7 since trended down
- Likely secondary to volume losses +/- degree of ATN from hypoperfusion.
- IVF completed
- Avoid nephrotoxic agents.
- Monitor Renal function.
-Nephro eval appreciated
Hypomagnesemia
Hypophosphatemia
-monitor and replete as necessary
Leukocytosis resolved
Thrombocytosis resolved
- Suspect this is reactive / due to volume contraction as opposed to infection
- Follow cultures, 1st set of cultures noted anaerobic Gram+ bacilli and aerobic coag neg staph, 2nd culture from same day remains neg, off abx afebrile no leukocytosis
-1st culture likely contaminated
- empiric abx discontinued, cont monitoring off
Chronic Anemia
B12 def
- H&H stable, cont to monitor
- B12 supplementation
Alcohol Use Disorder
- Patient reports no alcohol in several days.
- Thiamine, folate, MVI replacement
-no significant withdrawal symptoms noted. discontinued MSAS protocol
Anxiety
ativan prn
PT/OT eval appreciated snf rehab
DVT Prophylaxis: Lovenox
Code Status: Full
I spent a total of 55 minutes with the patient or on the floor. More than 50% of this time involved counseling and coordination of care.
Anticipated Discharge: 24 - 48 hours
Subjective/Interval History
-
Date of Service: May 20, 2024
No acute distress appears comfortable at this time. Reports tolerating diet request low fat restriction to be lifted. Reports ambulating to and from bathroom with difficulty
Objective Data
-
Labs:
Laboratory Results
05/20/24
04:27
WBC 5.8
Hgb 8.0 L
Hct 23.9 L
Plt Count 168
Sodium 140
Potassium 3.6
Chloride 99
Carbon Dioxide 33 H
BUN 12
Creatinine 0.9
Glucose 113 H
Calcium 9.2
Total Bilirubin 0.3
AST 31
ALT 19
Alkaline Phosphatase 77
Vital Signs:
Vital Signs
Temp Pulse Resp BP Pulse Ox
98.7 F 81 21 122/79 95
05/19/24 23:52 05/19/24 23:52 05/19/24 23:52 05/19/24 23:52 05/19/24 23:52
I&O
05/19/24 05/20/24 05/21/24
06:59 06:59 06:59
Intake Total 1600 / 1600 1200 / 1200
Output Total 1450 / 1450
Balance 150 / 150 1200 / 1200
[2024-05-20] MEDS: CARAFATE SUSPENSION 1 GM PO ×4 (07:49→21:16)
[2024-05-20] MEDS: PROTONIX 40 MG PO ×2 (07:53→21:16)
[2024-05-20] MEDS: VITAMIN B-12 1000 MCG PO (07:53)
[2024-05-20] MEDS: VITAMIN B1 100 MG PO (07:54)
[2024-05-20] MEDS: FOLVITE 1 MG PO (07:54)
[2024-05-20] MEDS: BENTYL 20 MG PO ×3 (07:54→23:23)
[2024-05-20] MEDS: QUESTRAN 4 GRAM PO ×2 (07:54→23:23)
--- NOTE | 2024-05-20 10:31 | CM ---
PT OT recommended [facility] at dc .
[facility] notified via TT.
Asked if pt would like any recourses from [facility] she declined.
PLAN Home with [facility] if accepted
[2024-05-20] MEDS: KLOR-CON 20 MEQ PO ×2 (10:52→21:16)
[2024-05-20] MEDS: MAGNESIUM SULFATE 50 IV (10:52)
[2024-05-20] MEDS: FLUSH (NSS) 1 FLUSH IV (10:54)
[2024-05-20 12:10] VITALS: BMI 26.1
[2024-05-20 15:05] VITALS: BP 122/71
--- NOTE | 2024-05-20 15:38 | W.PN.NEPH.PH ---
Today's Communication / Plan
-
observe
Assessment/Plan
-
Assessment:
AGMA
Lactic acidosis
Ketoacidosis
GERD
JULI (bl 0.9)
HypoMg
Alcohol use disorder
Plan:
met acidosis resolved now stable met alkalosis
mg and k repleted, on scheduled kcl
PVR 116cc, cr at baseline
BP stable
will s/o
-
-
Date of Service: May 20, 2024
CC / HPI / ROS
-
Chief Complaint:
JULI, AGMA
History of Present Illness:
now with metabolic alkalosis
Mag normal
K better at 3.6
JULI resolved
hgb low 7.8
Review of Systems:
c/o diffuse abdominal pain
no n/v
c/o left foot pain -reports discussed with primary team
Labs
-
Labs:
WBC 5.8 10^3/uL (4.8-10.8) 05/20/24 04:27
RBC 2.59 10^6/uL (4.20-5.40) L 05/20/24 04:27
Hgb 8.0 g/dL (12.0-16.0) L 05/20/24 04:27
Hct 23.9 % (37.0-47.0) L 05/20/24 04:27
Plt Count 168 10^3/uL (130-400) 05/20/24 04:27
Sodium 140 mmol/L (135-145) 05/20/24 04:27
Potassium 3.6 mmol/L (3.5-5.1) 05/20/24 04:27
Chloride 99 mmol/L (98-107) 05/20/24 04:27
Carbon Dioxide 33 mmol/L (22-30) H 05/20/24 04:27
BUN 12 mg/dl (7-17) 05/20/24 04:27
Creatinine 0.9 mg/dL (0.6-1.0) 05/20/24 04:27
eGFR > 60.00 05/20/24 04:27
Glucose 113 mg/dl (70-99) H 05/20/24 04:27
Calcium 9.2 mg/dl (8.4-10.2) 05/20/24 04:27
Phosphorus 2.6 mg/dl (2.5-4.5) 05/20/24 04:27
Albumin 3.2 g/dl (3.5-5.0) L 05/20/24 04:27
Physical Exam
-
Vital Signs:
Vital Signs
Temp Pulse Resp BP Pulse Ox
98.2 F 103 16 122/81 98
05/20/24 07:05 05/20/24 07:05 05/20/24 07:05 05/20/24 07:05 05/20/24 07:05
Cardiovascular:: Regular rate and rhythm
Respiratory:: Bilateral: CTA
Lung Excursion:: Normal
Abdomen:: Nontender and Soft
Extremity Edema:: None: Bilateral: (trace in feet)
Kohli Catheter: No
[2024-05-20] MEDS: QUESTRAN PO (17:06)
[2024-05-20] MEDS: ATIVAN 0.25 MG PO (23:23)
[2024-05-20 23:53] VITALS: BP 134/72
[2024-05-21] MEDS: ROXICODONE 5 MG PO ×5 (01:21→20:38)
[2024-05-21 06:00] VITALS: BMI 25.7
[2024-05-21 06:47] LABS: Hematocrit 23.7 % (37.0-47.0); Hemoglobin 8.2 g/dL (12.0-16.0); Mean Corp Hgb Conc. 34.6 g/dL (33.0-37.0); Mean Corpuscular Hgb 32.9 pg (27.0-31.0); Mean Corpuscular Volume 95.2 fL (81.0-99.0); Mean Platelet Volume 9.8 fL (7.4-10.4); Platelet Count 166 10^3/uL (130-400); Red Blood Cell Count 2.49 10^6/uL (4.20-5.40); Red Cell Dist. Width 17.1 % (11.5-14.5); White Blood Cell Count 7.4 10^3/uL (4.8-10.8)
[2024-05-21 07:05] VITALS: BP 149/85
[2024-05-21 07:27] LABS: ALT (SGPT) 18 U/L (0-35); AST (SGOT) 31 U/L (14-36); Albumin 3.3 g/dl (3.5-5.0); Alkaline Phosphatase 75 U/L (38-126); Blood Urea Nitrogen 19 mg/dl (7-17); Calcium 9.4 mg/dl (8.4-10.2); Carbon Dioxide 30 mmol/L (22-30); Chloride 100 mmol/L (98-107); Estimated Creatinine Clearance 46 ml/min; Glucose 93 mg/dl (70-99); Magnesium 1.5 mg/dl (1.6-2.3); Phosphorus 1.9 mg/dl (2.5-4.5); Potassium 3.9 mmol/L (3.5-5.1); Sodium 140 mmol/L (135-145); Total Bilirubin 0.3 mg/dl (0.2-1.3); Total Protein 5.5 g/dl (6.3-8.2); eGFR > 60.00
[2024-05-21] MEDS: FOLVITE 1 MG PO (08:04)
[2024-05-21] MEDS: KLOR-CON 20 MEQ PO ×2 (08:04→19:45)
[2024-05-21] MEDS: CARAFATE SUSPENSION 1 GM PO ×4 (08:04→21:43)
[2024-05-21] MEDS: BENTYL 20 MG PO ×2 (08:04→15:44)
[2024-05-21] MEDS: QUESTRAN 4 GRAM PO ×2 (08:04→15:42)
[2024-05-21] MEDS: VITAMIN B-12 1000 MCG PO (08:04)
[2024-05-21] MEDS: PROTONIX 40 MG PO ×2 (08:04→19:46)
[2024-05-21] MEDS: VITAMIN B1 100 MG PO (08:04)
[2024-05-21] MEDS: MAGNESIUM SULFATE 50 IV (09:49)
[2024-05-21] MEDS: NEUTRA-PHOS POWDER PACKET 250 MG PO ×3 (12:28→21:43)
--- NOTE | 2024-05-21 13:05 | W.PN.HOSP.TC ---
Today's Communication/Plan
-
Monitor vital signs
see plan
Replete magnesium and phosphorus
hopeful dc soon
Assessment / Plan
Assessment / Plan
Physical Exam
General: no acute distress, comfortable
HEENT: normocephalic atraumatic moist mucosa
Respiratory: clear to auscultation b/l
Cardiac: S1/S2 and Tachycardia; No Murmur
GI: Soft, Non Distended, Normal Bowel Sounds, abd tenderness
Musculoskeletal: No Clubbing, No Cyanosis and No Edema
Neuro: AOx3
A/P: Patient is a 68y F with PMH significant for alcohol use disorder, GERD / gastritis and repeated admissions for N/V and associated anion gap metabolic acidosis who presents to ED c/o abd pain and N/V.
Anion Gap Metabolic Acidosis
Lactic Acidosis
Ketoacidosis
- Shelf Filler and Nephrology eval appreciated
- Anion gap on initial labs is 35 with combination of ketoacidosis (likely due to starvation +/- alcohol) and lactic acidosis (likely due to hypovolemia / hypoperfusion).
- Patient admits that she does not take medications at home
- No evidence of toxic ingestion. Osmolar gap normal.
- IVF support complete
GERD / Gastritis / Esophagitis
suspected gastroparesis vs IBS
- non-compliant with medications at home
- cont PO PPI BID
- carafate
-bentyl
-questran
-fat diet 6 meals a day, diet advanced from low residue per patient's request. Low fat restriction later lifted per patient's request
Uric acid elevation 8.6
uric acid level was normal a month ago
review of records notes intermittent elevated and normal values
repeat normal
JULI resolved
- Initial Cr 1.7 since trended down
- Likely secondary to volume losses +/- degree of ATN from hypoperfusion.
- IVF completed
- Avoid nephrotoxic agents.
- Monitor Renal function.
-Nephro eval appreciated
Hypomagnesemia
Hypophosphatemia
-monitor and replete as necessary
Leukocytosis resolved
Thrombocytosis resolved
- Suspect this is reactive / due to volume contraction as opposed to infection
- Follow cultures, 1st set of cultures noted anaerobic Gram+ bacilli and aerobic coag neg staph, 2nd culture from same day remains neg, off abx afebrile no leukocytosis
-1st culture likely contaminated
- empiric abx discontinued, cont monitoring off
Chronic Anemia
B12 def
- H&H stable, cont to monitor
- B12 supplementation
Alcohol Use Disorder
- Patient reports no alcohol in several days.
- Thiamine, folate, MVI replacement
-no significant withdrawal symptoms noted. discontinued MSAS protocol
Anxiety
ativan prn
PT/OT eval appreciated snf rehab
DVT Prophylaxis: Lovenox
Code Status: Full
Anticipated Discharge: Within 24 hours
Subjective/Interval History
-
Date of Service: May 21, 2024
Denies pain
Objective Data
-
Labs:
Laboratory Results
05/21/24
04:32
WBC 7.4
Hgb 8.2 L
Hct 23.7 L
Plt Count 166
Sodium 140
Potassium 3.9
Chloride 100
Carbon Dioxide 30
BUN 19 H
Creatinine 0.9
Glucose 93
Calcium 9.4
Total Bilirubin 0.3
AST 31
ALT 18
Alkaline Phosphatase 75
Vital Signs:
Vital Signs
Temp Pulse Resp BP Pulse Ox
97.9 F 75 16 149/85 95
05/21/24 07:05 05/21/24 07:05 05/21/24 07:05 05/21/24 07:05 05/21/24 07:05
I&O
05/20/24 05/21/24 05/22/24
06:59 06:59 06:59
Intake Total 1200 / 1200 1370 / 1370
Balance 1200 / 1200 1370 / 1370
[2024-05-21 15:05] VITALS: BP 116/74
[2024-05-21 16:02] VITALS: BP 127/69; PULSE 85
[2024-05-21] MEDS: ATIVAN 0.25 MG PO (20:38)
[2024-05-21 23:46] VITALS: BP 112/61
[2024-05-22] VITALS (7 sets, daily range): BP systolic 88–150; BP diastolic 55–76; PULSE 80–114; O2SAT 95; BMI 25.6
[2024-05-22] MEDS: QUESTRAN 4 GRAM PO ×4 (00:40→23:10)
[2024-05-22] MEDS: BENTYL 20 MG PO ×4 (00:40→23:10)
[2024-05-22] MEDS: ROXICODONE 5 MG PO ×5 (03:49→21:55)
[2024-05-22] MEDS: MYLICON 80 MG PO (03:49)
[2024-05-22 05:19] LABS: Hematocrit 24.4 % (37.0-47.0); Hemoglobin 8.1 g/dL (12.0-16.0); Mean Corp Hgb Conc. 33.2 g/dL (33.0-37.0); Mean Corpuscular Hgb 31.3 pg (27.0-31.0); Mean Corpuscular Volume 94.2 fL (81.0-99.0); Mean Platelet Volume 9.9 fL (7.4-10.4); Platelet Count 187 10^3/uL (130-400); Red Blood Cell Count 2.59 10^6/uL (4.20-5.40); Red Cell Dist. Width 17.4 % (11.5-14.5); White Blood Cell Count 7.1 10^3/uL (4.8-10.8)
[2024-05-22 05:39] LABS: ALT (SGPT) 18 U/L (0-35); AST (SGOT) 31 U/L (14-36); Albumin 3.4 g/dl (3.5-5.0); Alkaline Phosphatase 73 U/L (38-126); Blood Urea Nitrogen 20 mg/dl (7-17); Calcium 9.6 mg/dl (8.4-10.2); Carbon Dioxide 29 mmol/L (22-30); Chloride 100 mmol/L (98-107); Estimated Creatinine Clearance 41 ml/min; Glucose 111 mg/dl (70-99); Magnesium 1.5 mg/dl (1.6-2.3); Phosphorus 2.7 mg/dl (2.5-4.5); Potassium 4.4 mmol/L (3.5-5.1); Sodium 137 mmol/L (135-145); Total Bilirubin 0.5 mg/dl (0.2-1.3); Total Protein 5.6 g/dl (6.3-8.2); eGFR > 60.00
--- NOTE | 2024-05-22 07:30 | PN.CDI ---
CDI
- -
CDI:
Physician Documentation Request
Admit Date: 05/16/24 02:32
Dear Doctor Main,
Please review the following and provide your response in the progress notes.
Clinical Indicators:
- 05/15 admission: WBC 26.1, HR 100's, RR 20-30's, Lactic acid 7.9, CRP 16.20
- 05/18 PN 'Anion Gap Metabolic Acidosis, lactic acidosis, ketoacidosis'
- 'ketoacidosis (likely due to starvation +/- alcohol) and lactic acidosis (likely due to hypovolemia / hypoperfusion)'
- 'Leukocytosis...thrombocytosis...Suspect this is reactive / due to volume contraction as opposed to infection'
- 'JULI'
Please clarify which most accurately describes the patient:
SIRS due to a non-infectious source metabolic Acidosis, lactic acidosis, ketoacidosis
SIRS due to a non-infectious source with acute organ dysfunction - JULI
Other
Use of terms such as suspected, likely, concern for, or probable (associated with a specific diagnosis that is being evaluated, monitored, or treated as if it exists) are acceptable and can be coded in the inpatient setting, when documented at the
time of discharge.
Thank you,
Riccardo Cross RN
CDI Specialist
Please use your independent medical judgment in providing your response.
[2024-05-22] MEDS: COMPAZINE 5 MG IV (07:53)
[2024-05-22] MEDS: VITAMIN B1 100 MG PO (08:02)
[2024-05-22] MEDS: FOLVITE 1 MG PO (08:02)
[2024-05-22] MEDS: PROTONIX 40 MG PO ×2 (08:02→21:54)
[2024-05-22] MEDS: CARAFATE SUSPENSION 1 GM PO ×4 (08:02→21:54)
[2024-05-22] MEDS: VITAMIN B-12 1000 MCG PO (08:02)
[2024-05-22] MEDS: KLOR-CON 20 MEQ PO ×2 (09:02→21:53)
[2024-05-22] MEDS: MAGNESIUM SULFATE 100 IV (09:03)
[2024-05-22] MEDS: MAALOX 30 ML PO (09:30)
--- NOTE | 2024-05-22 11:54 | W.PN.HOSP.TC ---
Today's Communication/Plan
-
Monitor vital signs
see plan
Replete magnesium aggressively
PT/OT
Assessment / Plan
Assessment / Plan
Physical Exam
General: no acute distress, comfortable
HEENT: normocephalic atraumatic moist mucosa
Respiratory: clear to auscultation b/l
Cardiac: S1/S2 and Tachycardia; No Murmur
GI: Soft, Non Distended, Normal Bowel Sounds, abd tenderness
Musculoskeletal: No Clubbing, No Cyanosis and No Edema
Neuro: AOx3
A/P: Patient is a 68y F with PMH significant for alcohol use disorder, GERD / gastritis and repeated admissions for N/V and associated anion gap metabolic acidosis who presents to ED c/o abd pain and N/V.
Anion Gap Metabolic Acidosis
SIRS due to noninfectious source
Lactic Acidosis
Ketoacidosis
- Tankage Supervisor and Nephrology eval appreciated
- Anion gap on initial labs is 35 with combination of ketoacidosis (likely due to starvation +/- alcohol) and lactic acidosis (likely due to hypovolemia / hypoperfusion).
- Patient admits that she does not take medications at home
- No evidence of toxic ingestion. Osmolar gap normal.
- IVF support complete
GERD / Gastritis / Esophagitis
suspected gastroparesis vs IBS
- non-compliant with medications at home
- cont PO PPI BID
- carafate
-bentyl
-questran
-fat diet 6 meals a day, diet advanced from low residue per patient's request. Low fat restriction later lifted per patient's request
Uric acid elevation 8.6
uric acid level was normal a month ago
review of records notes intermittent elevated and normal values
repeat normal
JULI resolved
- Initial Cr 1.7 since trended down
- Likely secondary to volume losses +/- degree of ATN from hypoperfusion.
- IVF completed
- Avoid nephrotoxic agents.
- Monitor Renal function.
-Nephro eval appreciated
Hypomagnesemia
Hypophosphatemia
-monitor and replete as necessary
Leukocytosis resolved
Thrombocytosis resolved
- Suspect this is reactive / due to volume contraction as opposed to infection
- Follow cultures, 1st set of cultures noted anaerobic Gram+ bacilli and aerobic coag neg staph, 2nd culture from same day remains neg, off abx afebrile no leukocytosis
-1st culture likely contaminated
- empiric abx discontinued, cont monitoring off
Chronic Anemia
B12 def
- H&H stable, cont to monitor
- B12 supplementation
Alcohol Use Disorder
- Patient reports no alcohol in several days.
- Thiamine, folate, MVI replacement
-no significant withdrawal symptoms noted. discontinued MSAS protocol
Anxiety
ativan prn
PT/OT eval appreciated home health
DVT Prophylaxis: Lovenox
Code Status: Full
Anticipated Discharge: Within 24 hours
Subjective/Interval History
-
Date of Service: May 22, 2024
Denies pain
Objective Data
-
Labs:
Laboratory Results
05/22/24
04:47
WBC 7.1
Hgb 8.1 L
Hct 24.4 L
Plt Count 187
Sodium 137
Potassium 4.4
Chloride 100
Carbon Dioxide 29
BUN 20 H
Creatinine 1.0
Glucose 111 H
Calcium 9.6
Total Bilirubin 0.5
AST 31
ALT 18
Alkaline Phosphatase 73
Vital Signs:
Vital Signs
Temp Pulse Resp BP Pulse Ox
98.3 F 85 20 150/61 97
05/22/24 07:20 05/22/24 07:20 05/22/24 07:20 05/22/24 07:20 05/22/24 08:00
I&O
05/21/24 05/22/24 05/23/24
06:59 06:59 06:59
Intake Total 1370 / 1370 480 / 480
Balance 1370 / 1370 480 / 480
--- NOTE | 2024-05-22 17:27 | CM ---
PT OT recommended [facility] at dc .
[facility].
Asked if pt would like any recourses from [facility] she declined.
IMM reviewed signed on chart.
PLAN Home with VN
[2024-05-22] MEDS: ATIVAN 0.25 MG PO (21:54)
[2024-05-23] MEDS: ROXICODONE 5 MG PO ×3 (02:09→10:30)
[2024-05-23 06:00] VITALS: BMI 25.9
[2024-05-23 07:00] VITALS: BP 91/59
[2024-05-23] MEDS: KLOR-CON 20 MEQ PO (08:24)
[2024-05-23] MEDS: QUESTRAN 4 GRAM PO (08:24)
[2024-05-23] MEDS: CARAFATE SUSPENSION 1 GM PO ×2 (08:24→11:09)
[2024-05-23] MEDS: BENTYL 20 MG PO (08:24)
[2024-05-23] MEDS: FOLVITE 1 MG PO (08:24)
[2024-05-23] MEDS: PROTONIX 40 MG PO (08:24)
[2024-05-23] MEDS: VITAMIN B1 100 MG PO (08:24)
[2024-05-23] MEDS: VITAMIN B-12 1000 MCG PO (08:24)
[2024-05-23] MEDS: TYLENOL 650 MG PO (08:34)
[2024-05-23] MEDS: ATIVAN 0.25 MG PO (08:35)
[2024-05-23 08:45] LABS: Hemoglobin 8.6 g/dL (12.0-16.0); Mean Corp Hgb Conc. 33.1 g/dL (33.0-37.0); Mean Corpuscular Hgb 31.5 pg (27.0-31.0); Mean Corpuscular Volume 95.2 fL (81.0-99.0); Mean Platelet Volume 9.7 fL (7.4-10.4); Platelet Count 234 10^3/uL (130-400); Red Blood Cell Count 2.73 10^6/uL (4.20-5.40); Red Cell Dist. Width 17.6 % (11.5-14.5); White Blood Cell Count 8.6 10^3/uL (4.8-10.8)
[2024-05-23 08:51] LABS: ALT (SGPT) 19 U/L (0-35); AST (SGOT) 32 U/L (14-36); Albumin 3.6 g/dl (3.5-5.0); Alkaline Phosphatase 81 U/L (38-126); Blood Urea Nitrogen 21 mg/dl (7-17); Calcium 9.5 mg/dl (8.4-10.2); Carbon Dioxide 26 mmol/L (22-30); Chloride 101 mmol/L (98-107); Estimated Creatinine Clearance 38 ml/min; Glucose 125 mg/dl (70-99); Magnesium 1.6 mg/dl (1.6-2.3); Phosphorus 2.8 mg/dl (2.5-4.5); Potassium 4.7 mmol/L (3.5-5.1); Sodium 138 mmol/L (135-145); Total Bilirubin 0.5 mg/dl (0.2-1.3); eGFR 54.06
--- NOTE | 2024-05-23 10:21 | W.PN.HOSP.TC ---
Today's Communication/Plan
-
monitor vitals
see plan
monitor cr
repeat BMP next week with pcp
dc today
time of discharge 36minutes
Assessment / Plan
Assessment / Plan
Physical Exam
General: no acute distress, comfortable
HEENT: normocephalic atraumatic moist mucosa
Respiratory: clear to auscultation b/l
Cardiac: S1/S2 and Tachycardia; No Murmur
GI: Soft, Non Distended, Normal Bowel Sounds, abd tenderness
Musculoskeletal: No Clubbing, No Cyanosis and No Edema
Neuro: AOx3
A/P: Patient is a 68y F with PMH significant for alcohol use disorder, GERD / gastritis and repeated admissions for N/V and associated anion gap metabolic acidosis who presents to ED c/o abd pain and N/V.
Anion Gap Metabolic Acidosis
SIRS due to noninfectious source
Lactic Acidosis
Ketoacidosis
- Fish Hatchery Assistant and Nephrology eval appreciated
- Anion gap on initial labs is 35 with combination of ketoacidosis (likely due to starvation +/- alcohol) and lactic acidosis (likely due to hypovolemia / hypoperfusion).
- Patient admits that she does not take medications at home
- No evidence of toxic ingestion. Osmolar gap normal.
- IVF support complete
GERD / Gastritis / Esophagitis
suspected gastroparesis vs IBS
- non-compliant with medications at home
- cont PO PPI BID
- carafate
-bentyl
-questran
-fat diet 6 meals a day, diet advanced from low residue per patient's request. Low fat restriction later lifted per patient's request
Uric acid elevation 8.6
uric acid level was normal a month ago
review of records notes intermittent elevated and normal values
repeat normal
JULI resolved
- Initial Cr 1.7 since trended down
- Likely secondary to volume losses +/- degree of ATN from hypoperfusion.
- IVF completed; mild bump today; patient denies any symptoms. repeat BMP next week with PCP
- Avoid nephrotoxic agents.
- Monitor Renal function.
-Nephro eval appreciated
Hypomagnesemia
Hypophosphatemia
-monitor and replete as necessary
Leukocytosis resolved
Thrombocytosis resolved
- Suspect this is reactive / due to volume contraction as opposed to infection
- Follow cultures, 1st set of cultures noted anaerobic Gram+ bacilli and aerobic coag neg staph, 2nd culture from same day remains neg, off abx afebrile no leukocytosis
-1st culture likely contaminated
- empiric abx discontinued, cont monitoring off
Chronic Anemia
B12 def
- H&H stable, cont to monitor
- B12 supplementation
Alcohol Use Disorder
- Patient reports no alcohol in several days.
- Thiamine, folate, MVI replacement
-no significant withdrawal symptoms noted. discontinued MSAS protocol
Anxiety
ativan prn
PT/OT eval appreciated home health
DVT Prophylaxis: Lovenox
Code Status: Full
Anticipated Discharge: Today
Subjective/Interval History
-
Date of Service: May 23, 2024
Denies any nausea today
Objective Data
-
Labs:
Laboratory Results
05/23/24
07:54
WBC 8.6
Hgb 8.6 L
Hct 26.0 L
Plt Count 234 D
Sodium 138
Potassium 4.7
Chloride 101
Carbon Dioxide 26
BUN 21 H
Creatinine 1.1 H
Glucose 125 H
Calcium 9.5
Total Bilirubin 0.5
AST 32
ALT 19
Alkaline Phosphatase 81
Vital Signs:
Vital Signs
Temp Pulse Resp BP Pulse Ox
97.8 F 86 16 91/59 94
05/23/24 07:00 05/23/24 07:00 05/23/24 07:00 05/23/24 07:00 05/23/24 07:00
I&O
05/22/24 05/23/24 05/24/24
06:59 06:59 06:59
Intake Total 480 / 480 780 / 780
Balance 480 / 480 780 / 780
--- NOTE | 2024-05-23 10:31 | W.DCSUMMARY ---
Discharge Summary
Discharge Data
Date of Admission: 05/16/24
Date of Discharge: 05/23/24
-
Pending Results: No
Hospital Course
68-year-old female with past medical history medical use disorder, GERD/gastritis came to the hospital with intractable nausea vomiting and anion gap metabolic acidosis. Patient also had significant lactic acidosis and ketoacidosis on admission
which over time continue to improve with fluids. She also had acute kidney injury for which she was seen by nephrology throughout hospitalization. Her renal function continue to improve with aggressive IV fluids. While patient was in the hospital
she also had persistent nausea which was likely thought was secondary to suspected gastroparesis. Patient symptoms continue to improve with PPI, Carafate and Bentyl. She also had significant electrolyte abnormality which was repleted. Her culture
on admission 1 set was positive for gram positive bacilli which was likely thought was contaminant. Once her symptoms continue to improve after fluids and her electrolytes were stable, she was then discharged home with instructions to follow-up
with all her physicians outpatient. On discharge she was instructed to get repeat BMP with primary care provider outpatient.
Discharge Plan
-
Patient Disposition: Home (Routine Discharge)
Discharge Diagnosis/Procedures: Anion gap metabolic acidosis
Lactic acidosis
Ketoacidosis
Suspected gastroparesis
Acute kidney injury
Hypomagnesemia
Hypophosphatemia
B12 deficiency
Alcohol use disorder
Diet: As tolerated
Activity: As tolerated
Driving Restrictions: As prior to admission
Bathing Restrictions: None
Blood Work: Repeat BMP, magnesium next week with primary care provider
Referrals:
Ishaan Ames DO [Family Provider] - in less than 1 week
Prescriptions:
New
acetaminophen 325 mg Tablet
650 mg PO Q4HPRN PRN (Reason: Mild Pain / Temp > 101) Qty: 0 0RF
thiamine HCl (vitamin B1) 100 mg Tablet
100 mg PO DAILY Qty: 30 0RF
Continued
lorazepam 0.5 mg Tablet
0.5 mg PO HSPRN PRN (Reason: anxiety/sleep) Qty: 7 0RF
Patient Comments:
04/07/2024: last filled on 03/29/24, 7 tabs for 7 days from [facility]
sucralfate 100 mg/mL Suspension
1 g PO ACHS Qty: 414 0RF
folic acid 1 mg Tablet
1 mg PO DAILY Qty: 30 0RF
cholestyramine (with sugar) 4 gram Powder In Packet
1 ea PO Q8H Qty: 60 0RF
potassium chloride 20 mEq tablet extended release
20 meq PO DAILY Qty: 30 0RF
magnesium oxide 500 mg capsule
500 mg PO BID Qty: 60 0RF
cyanocobalamin (vitamin B-12) 1,000 mcg Tablet
1,000 mcg PO DAILY 30 Days Qty: 30 2RF
dicyclomine 20 mg Tablet
20 mg PO TID 30 Days Qty: 90 0RF
thiamine HCl (vitamin B1) 100 mg tablet
1 mg PO DAILY
Changed
pantoprazole 40 mg tablet,delayed release (DR/EC)
40 mg PO BID Qty: 0 0RF
Discharge Orders:
Discharge Patient (As Directed); Ordered 05/23/24
Ordered By: Sotero Quach
Discharge Date and Time
Discharge Date/Time: 05/23/24 13:40
Print Language: PUERTO RICAN
--- NOTE | 2024-05-23 11:36 | CM ---
Trudy is being discharged to home today. She will be calling an [employer] to transport her home. VN has been arranged for home health care and Trudy is aware that she will receive a call within a few days after she is discharged to arrange her
first visit.
Plan: Discharge to home via Uber with [facility] to follow in the home.
== END 2024-05-23 13:40 | disposition home health service (06) | DRG 640 ==
LOC: 4 EAST ACU 02:32
PROVIDERS: Internal Medicine; Nurse Practitioner Family; ADMITTING PHYSICIAN Hospitalist; ATTENDING PHYSICIAN Internal Medicine; CONSULT PHYSICIAN Internal Medicine Critical Care Medicine; CONSULT PHYSICIAN Student in an Organized Health Care Education/Training Program; EMERGENCY PHYSICIAN Emergency Medicine; FAMILY PHYSICIAN Family Medicine
DX: E87.29 Other acidosis (principal); N17.0 Acute kidney failure with tubular necrosis; R65.10 Systemic inflammatory response syndrome (SIRS) of non-infectious origin without acute organ dysfunction; R42 Dizziness and giddiness; R11.2 Nausea with vomiting, unspecified; R19.7 Diarrhea, unspecified; F10.10 Alcohol abuse, uncomplicated; R73.9 Hyperglycemia, unspecified; F13.11 Sedative, hypnotic or anxiolytic abuse, in remission; F41.9 Anxiety disorder, unspecified; I10 Essential (primary) hypertension; R33.9 Retention of urine, unspecified; G43.909 Migraine, unspecified, not intractable, without status migrainosus; K21.00 Gastro-esophageal reflux disease with esophagitis, without bleeding; E83.42 Hypomagnesemia; D75.839 Thrombocytosis, unspecified; D64.9 Anemia, unspecified; F32.A Depression, unspecified; E86.0 Dehydration; R74.01 Elevation of levels of liver transaminase levels; K70.10 Alcoholic hepatitis without ascites; E86.1 Hypovolemia; K29.70 Gastritis, unspecified, without bleeding; E83.39 Other disorders of phosphorus metabolism; M25.522 Pain in left elbow; I95.89 Other hypotension; E53.8 Deficiency of other specified B group vitamins; K44.9 Diaphragmatic hernia without obstruction or gangrene; Z87.891 Personal history of nicotine dependence; Z85.828 Personal history of other malignant neoplasm of skin; Z87.19 Personal history of other diseases of the digestive system; Z90.710 Acquired absence of both cervix and uterus; Z80.0 Family history of malignant neoplasm of digestive organs; Z88.6 Allergy status to analgesic agent; Z88.2 Allergy status to sulfonamides; Z91.148 Patient's other noncompliance with medication regimen for other reason; Z82.49 Family history of ischemic heart disease and other diseases of the circulatory system
CPT/HCPCS: 36556; 51701; 71046; 73070; 80048; 80053; 80306; 81003; 81015; 82010; 82077; 82150; 82805; 82962; 83036; 83605; 83690; 83735; 83930; 84100; 84443; 84484; 84550; 85025; 85027; 85610; 85730; 86140; 87040; 87077; 87086; 87150; 87205; 93005; 96361; 96365; 96366; 96367; 97162; 97167; 97530; 97535; 99291

== ENCOUNTER 2024-05-27 11:06 | Inpatient (IN) | payer MEDICARE, SELFPAY ==
[2024-05-26 20:14] VITALS: BP 128/72; BMI 22.4
--- NOTE | 2024-05-26 20:32 | ED.GENMED ---
History of Present Illness
General
Chief Complaint: Fainting/Passed Out
Source: patient and ambulance crew
Exam Limitations: none
Time Seen by Provider: 05/26/24 20:23
Nursing documentation reviewed up to this point in time: agreed with
History of Present Illness
History of Present Illness:
68-year-old female presents emergency room complaining of a syncope episode. She was drinking alcohol around noon today, and being lightheaded. She stood up to go to the bathroom and passed out. She is unsure if she hit her head. She arrives in
a c-collar. Complains of pain to her bilateral chest. Also her armpits.
Past History
Past History
ED Past Medical History: Cancer (Skin Cancer face), GERD, HTN, Psychiatric (Anxiety), Other (GI bleeding, Hiatal hernia. Ulcers, anemia. Migraine headaches, Colitis) and Other (recent colitis November/December 2023, severe esophagitis, alcohol abuse,
benzodiazepine withdrawal)
ED Past Surgical History: Appendectomy, Cholecystectomy, Gynecological (hysterectomy,), Orthopedic and Other (Mohs skin surgery, RUE epicondylitis X 2)
Patient has exhibited threatening behavior?: No
PSI?: No
Social History
Tobacco: Former smoker
Alcohol: Binge drinker
Drug: None and Other (History of benzodiazepine abuse)
Personal:
Living: alone
Family History
Family History: Other (Noncontributory)
Phy Exam
Physical Exam
Physical Exam:
Physical Exam
General: Intoxicated
Neck: supple. no meningeal signs. normal posterior pharynx
Heart: s1/s2 regular rate and rhythm, no murmur. equal radial
pulses.
HEENT: Pupils equal round reactive to light, EOMI
Lungs: no acute respiratory distress. clear bilaterally
Abdomen: normal bowel sounds. not tender. no CVAT, ecchymosis on lower right abdomen
Neuro: alert and oriented. no focal neurological deficits cranial nerves II through XII intact
Skin: no rash
Psychiatric: well kept. interactive and cooperative
Extremities: no edema. no calf tenderness. negative homans. good distal pulses, bilateral proximal humerus tenderness
Course
Orders/Labs/Results
Orders:
Orders
05/26/24 20:13
Cardiac Monitoring- Treatment ONCE
O2 Therapy [RESP] Urgent
Titrate/Wean O2 to maintain O2 sat greater than (%): 93
Special Instructions: TO MAINTAIN CONTINUOUS O2 SATS >/= 93%
Pulse Ox/cont/shift [RESP] Urgent
Quantity: 1
Special Instructions: continuous pulse ox
05/26/24 20:33
Alcohol Urgent
Complete Blood Count/With Diff Urgent
Comprehensive Metabolic Panel Urgent
Creatine Phosphokinase Urgent
Troponin I Urgent
05/26/24 20:39
CT Abd/pelvis W Iv Cont Urgent
Comment:
Reason For Exam: abdominal pain, bruising, falls
05/26/24 22:29
CT Cervical Spine W/o Iv Contr Urgent
Comment:
Reason For Exam: fall
CT Head W/o Iv Contrast Urgent
Comment:
Reason For Exam: fall
05/27/24 00:00
CR Chest - 2 Views Urgent
Reason For Exam: fall, bilateral chest wall pain
05/27/24 00:23
Ondansetron Injectable [Zofran] 4 mg .ROUTE .STK-MED ONE
05/27/24 00:24
Ondansetron Injectable [Zofran] 4 mg IV NOW STA
05/27/24 00:40
Humerus, Left 2 Views [CR Humerus - Left Min 2 Views*] Urgent
Comment:
Reason For Exam: fall, bilateral shoulder pain
Humerus, Right 2 Views [CR Humerus - Right Min 2 View*] Urgent
Comment:
Reason For Exam: fall, bilateral shoulder pain
05/27/24 00:54
Morphine Sulfate 2 mg IV NOW STA
05/27/24 01:03
Prochlorperazine [Compazine] 10 mg .ROUTE .STK-MED ONE
05/27/24 01:09
Prochlorperazine [Compazine] 5 mg IV NOW STA
05/27/24 01:25
0.9% Sodium Chloride 1000 ml [Nss] 1,000 ml IV BOLUS
05/27/24 02:00
Flush (0.9% Sodium Chloride) [Flush (Nss)] See Dose Instructions IV PER PROTOCOL
Abnormal Lab Results
05/26/24
20:33
RBC 3.05 L 10^6/uL
(4.20-5.40)
Hgb 9.5 L g/dL
(12.0-16.0)
Hct 27.3 L %
(37.0-47.0)
MCH 31.1 H pg
(27.0-31.0)
RDW 16.9 H %
(11.5-14.5)
Plt Count 463 H D 10^3/uL
(130-400)
Abs Immat Gran (auto) 0.1 H 10^3/uL
(0-0.05)
Absolute Monos (auto) 0.8 H 10^3/uL
(0.1-0.6)
Immature Gran % 1.0 H %
(0-0.5)
Monocytes % 10.4 H %
(1.7-9.3)
Carbon Dioxide 15 L mmol/L
(22-30)
BUN 18 H mg/dl
(7-17)
Creatinine 1.2 H mg/dL
(0.6-1.0)
AST 47 H U/L
(14-36)
05/26/24 20:33
05/26/24 20:33
Vital Signs
Initial and Last Documented VS:
Initial Vital Signs
Temp Pulse Resp BP Pulse Ox
97.9 F 82 20 128/72 99
05/26/24 20:14 05/26/24 20:14 05/26/24 20:14 05/26/24 20:14 05/26/24 20:14
Last Documented Vital Signs
Temp Pulse Resp BP Pulse Ox
97.9 F 87 25 104/60 99
05/26/24 20:14 05/27/24 01:20 05/27/24 01:20 05/27/24 01:20 05/26/24 20:30
MDM/Problems Addressed
Differential Diagnosis Includes:
Vasovagal, dysrhythmia, alcohol abuse,
MDM/Problems Addressed:
68-year-old female with bilateral humeral fractures. Syncope episodes, likely vasovagal. Admit to hospitalist.
Chronic conditions affecting care: HTN
Acute Exacerbation and/or Progression of Chronic Illness: HTN
*Radiology
Radiology exam reviewed: preliminary read by ED provider (Chest x-ray and bilateral humerus x-rays show bilateral proximal humerus fractures) and radiology read reviewed (CT head, cervical spine and abdomen pelvis no acute findings)
*Pulse Oximetry
Patient hypoxic: no
*EKG
Interpreted by ED Provider?: Yes
EKG Intrepretation Date: 05/26/24
EKG Intrepretation Time: 20:32
Interpretation: normal
Comparison EKG: no changes
Heart Rate: 85
Rate: normal
Rhythm: sinus
[place]: normal axis
Interval: normal interval
QRS Pattern: normal QRS
Ischemia: no ischemia
*Hand Potter Interpretation
Rate: normal
Interpretation: normal
Heart Rate: 85
Rhythm: sinus
*Critical Care Note
Total Time (30-74mins, 75-104mins- exclusive of procedures): Not Applicable
Patient Management
Social determinants of health affecting care: Living situation
Discussion with other providers: Hospitalist
Escalation/DeEscalation of care consider admission/obs:
admit indicated
ED Attending Note
-
Portions of this chart may have been created with voice recognition software.� Occasional wrong word or��sound alike� substitutions may have occurred due to the inherent limitations of voice recognition software.
Discharge Plan
Departure
Patient Disposition: Admit
Date of Disposition: 05/27/24
Time of Disposition: 00:42
Admit to: Telemetry
Presentation/result/management discussed w/ accepting MD/DO: Hospitalist
Patient with high blood pressure during this ER visit?: Yes
Condition: Fair
Discharge Problem:
Syncope, Bilateral proximal humeral fractures, Alcohol intoxication
Prescriptions:
No Action
lorazepam 0.5 mg Tablet
0.5 mg PO HSPRN PRN (Reason: anxiety/sleep) Qty: 7 0RF
Patient Comments:
04/07/2024: last filled on 03/29/24, 7 tabs for 7 days from [facility]
sucralfate 100 mg/mL Suspension
1 g PO ACHS Qty: 414 0RF
folic acid 1 mg Tablet
1 mg PO DAILY Qty: 30 0RF
cholestyramine (with sugar) 4 gram Powder In Packet
1 ea PO Q8H Qty: 60 0RF
potassium chloride 20 mEq tablet extended release
20 meq PO DAILY Qty: 30 0RF
magnesium oxide 500 mg capsule
500 mg PO BID Qty: 60 0RF
cyanocobalamin (vitamin B-12) 1,000 mcg Tablet
1,000 mcg PO DAILY 30 Days Qty: 30 2RF
dicyclomine 20 mg Tablet
20 mg PO TID 30 Days Qty: 90 0RF
thiamine HCl (vitamin B1) 100 mg tablet
1 mg PO DAILY
acetaminophen 325 mg Tablet
650 mg PO Q4HPRN PRN (Reason: Mild Pain / Temp > 101) Qty: 0 0RF
thiamine HCl (vitamin B1) 100 mg Tablet
100 mg PO DAILY Qty: 30 0RF
pantoprazole 40 mg tablet,delayed release (DR/EC)
40 mg PO BID Qty: 0 0RF
Referrals:
Ishaan Ames DO [Family Provider] -
Interventions
Interventions:
*Risk Screen - Suicide Last Done: 05/26/24 20:14
*General Assessment Last Done: 05/26/24 20:14
*Neglect/Abuse Screening Last Done: 05/26/24 20:14
ED- Fall Risk Assessment Last Done: 05/26/24 20:14
*ED COVID-19 Vaccine History Last Done: 05/26/24 20:14
ED- Cardiac Assessment Last Done: 05/26/24 22:05
ED- Neurological Assessment Last Done: 05/26/24 22:05
Discharge Date and Time
Print Language: SPANISH
[2024-05-26 20:41] LABS: % Basophils 1.6 % (0-2); % Eosinophils 2.7 % (0-6); % Lymphocytes 34.4 % (20.5-51.1); % Monocytes 10.4 % (1.7-9.3); % Neutrophils 49.9 % (42.2-75.2); Absolute Basophils 0.1 10^3/uL (0-0.2); Absolute Eosinophils 0.2 10^3/uL (0-0.7); Absolute Immature Granulocytes 0.1 10^3/uL (0-0.05); Absolute Lymphocytes 2.7 10^3/uL (1.2-3.4); Absolute Monocytes 0.8 10^3/uL (0.1-0.6); Absolute Neutrophils 3.9 10^3/uL (1.4-6.5); Hematocrit 27.3 % (37.0-47.0); Hemoglobin 9.5 g/dL (12.0-16.0); Mean Corp Hgb Conc. 34.8 g/dL (33.0-37.0); Mean Corpuscular Hgb 31.1 pg (27.0-31.0); Mean Corpuscular Volume 89.5 fL (81.0-99.0); Mean Platelet Volume 9.2 fL (7.4-10.4); Nucleated Red Blood Cells % 0 %; Platelet Count 463 10^3/uL (130-400); Red Blood Cell Count 3.05 10^6/uL (4.20-5.40); Red Cell Dist. Width 16.9 % (11.5-14.5); White Blood Cell Count 7.9 10^3/uL (4.8-10.8)
[2024-05-26 21:00] VITALS: BP 105/66
[2024-05-26 21:05] LABS: Troponin I < 0.012 ng/ml
[2024-05-26 21:07] LABS: ALT (SGPT) 29 U/L (0-35); AST (SGOT) 47 U/L (14-36); Albumin 4.4 g/dl (3.5-5.0); Alcohol 202 mg/dl; Alkaline Phosphatase 117 U/L (38-126); Blood Urea Nitrogen 18 mg/dl (7-17); Calcium 9.1 mg/dl (8.4-10.2); Carbon Dioxide 15 mmol/L (22-30); Chloride 100 mmol/L (98-107); Creatine Phosphokinase 51 U/L (30-135); Estimated Creatinine Clearance 39 ml/min; Glucose 95 mg/dl (70-99); Potassium 4.2 mmol/L (3.5-5.1); Sodium 135 mmol/L (135-145); Total Bilirubin 0.7 mg/dl (0.2-1.3); Total Protein 6.9 g/dl (6.3-8.2)
[2024-05-26 22:02] VITALS: BP 135/75
[2024-05-27] VITALS (29 sets, daily range): BP systolic 72–148; BP diastolic 47–79; PULSE 93
[2024-05-27] MEDS: ZOFRAN 4 MG IV (00:24)
[2024-05-27] MEDS: COMPAZINE 5 MG IV (01:10)
[2024-05-27] MEDS: MORPHINE SULFATE 2 MG IV (01:11)
[2024-05-27] MEDS: NSS 1000 IV ×2 (01:26→04:40)
--- NOTE | 2024-05-27 01:33 | EDRN ---
Pt. appeared to have vasovagal episode, became hypotensive, dizzy, and diaphoretic. RN placed pt. in Trendelenburg position, administered IV fluids. Pt. awake and speaking w/ pt. during event, BP increased, pt.'s color returned. ED attending aware.
--- NOTE | 2024-05-27 02:56 | HPS.HSE ---
Family Physician
-
Family Physician: Ishaan Ames
Chief Complaint
-
Patient with bilateral humeral fracture, alcohol intoxication and dehydration
History of Present Illness
This is a 68-year-old female with a history of alcohol dependence, GERD, hypertension presenting to the emergency department approximately 4 days after being discharged with elevated blood alcohol, and or fall/presyncope.
She was admitted to the hospital for dehydration about a week ago. At the time she was having nausea vomiting JULI and reflux symptoms. She was treated with IV fluids and GI cocktail. She did improve prior to discharge. Patient reports that since
discharge she has not been eating. She has not been compliant with her GI medications. She started drinking again. She reports that she drank to servings of vodka on the day of admission. She did not remember exactly how she fell. She thought
she fainted. There was no weakness. There was no postictal episode. She denies any prior history of seizures. She states she did feel lightheaded prior to passing out. She denies any melena or hematochezia. She denies of any chest pain. She
reports ongoing abdominal pain as state with nausea but no vomiting. No fevers or chills.
On arrival in the ED and blood pressure was borderline with 90s systolic. Her heart rate was in the 90s. She was otherwise hemodynamically stable. Troponin was negative. She had CT of the head and C-spine which shows no acute intracranial
process and no acute spinal fractures. X-rays of her hand shows a displaced right humeral fracture and a nondisplaced left humeral fracture. Alcohol level was over 200. CBC is unchanged. LFTs with a slight uptick in AST. Lipase will be sent.
His creatinine at baseline. Bicarb is decreased at 15.
Medical History
Past Medical History
Past Medical History: Reports GERD and HTN
Additional Past Medical History:
ETOH dependence
Past Surgical History: Reports None
Social History
Alcohol: Chronic Alcoholic
Drug: None
Personal: Single
Living: With Roomate
Employment: Not Employed
Family History
Family History: Not pertinent
Allergies / Home Medications
Allergies reflects when Allergies were last updated in [facility].
Home Medications with original date entered in [facility]
Allergy/Medication List:
Allergies
Allergy/AdvReac Type Severity Reaction Status Date / Time
aspirin Allergy Unknown Verified 05/15/24 22:18
gabapentin Allergy Unknown Verified 05/15/24 22:18
NSAIDS (Non-Steroidal Allergy Unknown Verified 05/15/24 22:18
Anti-Inflamma
[id number] Reductase Allergy Swelling Verified 05/15/24 22:18
Inhibitor
Sulfa (Sulfonamide Allergy Unknown Verified 05/15/24 22:18
Antibiotics)
Home Medications
lorazepam 0.5 mg tablet 0.5 mg PO HSPRN PRN anxiety/sleep #7 tabs 03/31/24
cholestyramine (with sugar) 4 gram powder for susp in a packet 1 ea PO Q8H #60 ea 04/13/24
folic acid 1 mg tablet 1 mg PO DAILY #30 tabs 04/13/24
magnesium oxide 500 mg capsule 500 mg PO BID #60 caps 04/13/24
potassium chloride 20 mEq tablet,extended release 20 meq PO DAILY #30 tabs 04/13/24
sucralfate 100 mg/mL oral suspension 1 g (10 mL) PO ACHS #414 mL 04/13/24
cyanocobalamin (vitamin B-12) 1,000 mcg tablet 1,000 mcg PO DAILY 30 days #30 tabs 05/04/24
dicyclomine 20 mg tablet 20 mg PO TID Gastrointestinal issue 30 days #90 tabs 05/04/24
thiamine HCl (vitamin B1) 100 mg tablet 1 mg PO DAILY 05/18/24
acetaminophen 325 mg tablet 650 mg (2 x 325 mg) PO Q4HPRN PRN Mild Pain / Temp > 101 #0 tabs 05/23/24
pantoprazole 40 mg tablet,delayed release 40 mg PO BID #0 tabs 05/23/24
thiamine HCl (vitamin B1) 100 mg tablet 100 mg PO DAILY #30 tabs 05/23/24
Review of Systems
-
History Source: Patient
Constitutional: Reports No Symptoms
EENT: Reports No Symptoms
Respiratory: Reports No Symptoms
Cardiac: Reports No Symptoms
Abdomen/GI: Reports Abdominal Pain and Nausea
: Reports No Symptoms
Musculoskeletal: Reports Joint Pain
Skin: Reports No Symptoms
Neurological: Reports No Symptoms
Endocrine: Reports No Symptoms
Hematologic/Lymphatic: Reports No Symptoms
Psych: Reports No Symptoms
Physical Exam
Vital Signs
Vital Signs
Temp Pulse Resp BP Pulse Ox
97.9 F 90 17 90/59 96
05/26/24 20:14 05/27/24 02:45 05/27/24 02:45 05/27/24 02:40 05/27/24 02:00
Physical Exam
General: Pain
HEENT: NormoCephalic, Anicteric, Atraumatic and PERRLA
Respiratory: Clear
Cardiac: S1/S2 and Regular Rhythm
Breast: Deferred by me
GI: Soft, Non Distended, Normal Bowel Sounds and Tender
Rectal: Deferred by Provider
Genito-urinary: Deferred by me
Musculoskeletal: No Clubbing, No Cyanosis and No Edema
Skin: Warm
Neuro: AO x 3
Hematologic/Lymphatic: No Lymphadenopathy
Psych: Calm
Laboratory Results
-
05/26/24 20:33
05/26/24 20:33
Laboratory Results
Total Bilirubin 0.7 mg/dl (0.2-1.3) 05/26/24 20:33
AST 47 U/L (14-36) H 05/26/24 20:33
ALT 29 U/L (0-35) 05/26/24 20:33
Alkaline Phosphatase 117 U/L (38-126) 05/26/24 20:33
Troponin I < 0.012 ng/ml 05/26/24 20:33
Data Reviewed
-
CT Scan: Report Reviewed by me
Lab Data: Labs Reviewed by me
Impression/Plan
-
IMPRESSION:
PLAN:
1. Fracture - Bilateral humeral fractures. Right is a greenstick fracture. Left is non-displaced.
- admit to med/surg
- pain control
- no weight bearing
- maintain splint
- ortho consultation
- ptot, care management
2. ETOH dependence - Elevated etoh level. Mild ketoacidosis. Mild dehydration. Denies h/o etoh withdrawal symptoms. Last drink was on of admission.
- D5 Normal saline
- thiamine supplementation
- folate, mag, b12 supplementation
- monitor for withdrawal though low risk
3. Gastritis - abdominal pain similar to prior complaints, likely gastritis and gastroparesis
- pantoprazole bid, sucralfate po
- prn antacids
- antiemetics
[2024-05-27] MEDS: OFIRMEV 100 IV (02:57)
[2024-05-27] MEDS: ROXICODONE 5 MG PO (05:13)
[2024-05-27 05:35] LABS: Blood Urea Nitrogen 18 mg/dl (7-17); Calcium 7.8 mg/dl (8.4-10.2); Carbon Dioxide 16 mmol/L (22-30); Chloride 104 mmol/L (98-107); Estimated Creatinine Clearance 39 ml/min; Glucose 87 mg/dl (70-99); Magnesium 1.1 mg/dl (1.6-2.3); Sodium 136 mmol/L (135-145)
[2024-05-27] MEDS: D5/0.9% SODIUM CHLORIDE 1000 IV ×3 (05:35→20:43)
--- NOTE | 2024-05-27 07:44 | W.PN.UPDATE ---
Update Note
Progress Note Update
Pt seen and chart reviewed
Has L Proximal humerus fx which can be treated with sling immobilization--Does not require surgery for this at this time
Does have a displaced R humerus shaft fx and will require surgery within the next 7-10 days
I will wait until the pt is medically stable for surgery
I can do her surgery either this saturday or saturday
I will check my schedule and let the hospitalist service know when I available to perform the surgery
Will follow
Thanks
GGMD
--- NOTE | 2024-05-27 07:59 | PTCARENOTE ---
Pt arrived to south from ED. Pt transferred from ED stretcher to bed. Pt had R arm sling in place, refusing L arm sling. IVF infusing. Pt states pain 10/10 in b/l shoulders. Pt oriented to call campos and room, bed locked in lowest position, call
campos within reach.
[2024-05-27] MEDS: NSS (PRESERVATIVE FREE) 10 ML IV (08:21)
[2024-05-27] MEDS: PROTONIX IV 40 MG IV (08:21)
[2024-05-27] MEDS: CARAFATE SUSPENSION 1 GM PO ×4 (08:21→22:15)
[2024-05-27] MEDS: MAGNESIUM OXIDE 500 MG PO (08:22)
[2024-05-27] MEDS: THIAMINE INJECTION 100 MG IV (08:22)
[2024-05-27] MEDS: VITAMIN B-12 1000 MCG PO (08:22)
[2024-05-27] MEDS: FOLVITE 1 MG PO (08:22)
[2024-05-27] MEDS: TYLENOL 650 MG PO ×2 (08:22→20:44)
--- NOTE | 2024-05-27 11:07 | W.PN.HOSP.TC ---
Today's Communication/Plan
-
IV hydration
Follow BMP and LFT.
Abscess protocol for alcohol withdrawal.
Analgesic regimen for bilateral humerus fracture
Assessment / Plan
Assessment / Plan
Impression:
Bilateral humeral fractures.
Alcohol use disorder severe
At risk for alcohol withdrawal/DT.
JULI.
Metabolic acidosis.
Alcoholic gastritis/GERD
Anemia of chronic disease
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
Anxiety
Plan:
Status post unwitnessed fall at home. CT head with no acute abnormalities.
Bilateral humerus fracture pain
Left proximal humerus fracture with no displacement with plan for conservative treatment with sling, embolization
Displaced right humerus shaft fracture will require surgical repair within 7 to 10 days
Orthopedic consulted with further plan for surgical repair
Continue pain control: Tylenol, oxycodone, IV hydromorphone for breakthrough pain
Severe alcohol use disorder with multiple hospitalizations
Alcohol level on presentation at 200
Patient has poor insight on the problem.
At risk for withdrawal/DTs
Start MSAs protocol
IV thiamine
Metabolic acidosis, suspect alcoholic ketoacidosis.
Acute kidney injury, mild elevation of creatinine at baseline continue isotonic solution
Monitor oral intake
Follow BMP
Alcoholic gastritis/GERD
History of PUD with gastrointestinal hemorrhage
Continue PPI.
Chronic normocytic anemia with hemoglobin at the baseline at 9
Monitor with hydration
Anticipated Discharge: > 48 hours
Subjective/Interval History
-
Date of Service: May 27, 2024
Objective Data
-
Labs:
Laboratory Results
05/27/24
05:08
Sodium 136
Potassium 4.0
Chloride 104
Carbon Dioxide 16 L
BUN 18 H
Creatinine 1.2 H
Glucose 87
Calcium 7.8 L
Vital Signs:
Vital Signs
Temp Pulse Resp BP Pulse Ox
98.1 F 83 16 131/77 97
05/27/24 08:00 05/27/24 08:00 05/27/24 08:00 05/27/24 08:00 05/27/24 10:24
I&O
05/26/24 05/27/24 05/28/24
06:59 06:59 06:59
Intake Total 120 / 120
Output Total 600 / 600
Balance -600 / -600 120 / 120
Physical Exam
-
General: Well Developed, Well Nourished and No Apparent Distress
Respiratory: Clear to Auscultation and Non Labored Respirations
Cardiac: Regular Rhythm and S1/S2
GI: Soft, Nondistended and Tender
Musculoskeletal: No Clubbing, No Cyanosis and No Edema
Skin: Warm and Dry
Neuro: Awake, Alert, Oriented and AO x 3
Psych: Calm
[2024-05-27] MEDS: DILAUDID 0.5 MG IV ×4 (11:21→22:16)
[2024-05-27] MEDS: ROXICODONE 10 MG PO ×2 (12:36→20:44)
--- NOTE | 2024-05-27 13:25 | PTCARENOTE ---
After working with PT/OT, pt is now agreeable to wearing sling on L arm. Pt has R arm sling and L arm sling in place. care ongoing.
--- NOTE | 2024-05-27 14:52 | CM ---
Admitted for Bilateral humeral fractures - Right is a greenstick fracture. Left is non-displaced. H/o of alcohol dependence and gastritis
Spoke with pt at bedside
Reports she lives with her friend Keira, in Keira's home - one story home with no steps to enter
Reports independent at baseline, retired
DME - none
SNF - has been at [facility] in past. If SNF needed prefers somewhere close to home in [place]
HH - denies past hx
Has ride at discharge
PCP - Dr Ishaan Amse
Pharm - [facility]
CM consult - Discussed discharge planning - prefers SNF somewhere close to home in [place]. Will send referral in Care Port
CM consult - Substance abuse counseling - discussed with pt - denies alcohol dependence and declining referral to [facility] for out patient recourses
CM will follow for d/c needs
Plan - anticipate SNF when medically ready for discharge
[2024-05-27] MEDS: LOVENOX 40 MG SC (17:17)
[2024-05-28] VITALS (12 sets, daily range): BP systolic 98–171; BP diastolic 58–89
[2024-05-28] MEDS: ROXICODONE 5 MG PO ×2 (00:50→21:56)
[2024-05-28] MEDS: TYLENOL 650 MG PO ×3 (00:50→21:55)
[2024-05-28] MEDS: DILAUDID 0.5 MG IV ×6 (02:12→23:40)
[2024-05-28] MEDS: D5/0.9% SODIUM CHLORIDE 1000 IV (04:53)
[2024-05-28] MEDS: ROXICODONE 10 MG PO ×3 (04:54→18:40)
[2024-05-28 07:18] LABS: ALT (SGPT) 17 U/L (0-35); AST (SGOT) 22 U/L (14-36); Alkaline Phosphatase 88 U/L (38-126); Blood Urea Nitrogen 9 mg/dl (7-17); Calcium 8.1 mg/dl (8.4-10.2); Carbon Dioxide 17 mmol/L (22-30); Chloride 106 mmol/L (98-107); Estimated Creatinine Clearance 52 ml/min; Glucose 157 mg/dl (70-99); Potassium 3.8 mmol/L (3.5-5.1); Sodium 136 mmol/L (135-145); Total Bilirubin 0.6 mg/dl (0.2-1.3); Total Protein 5.2 g/dl (6.3-8.2); eGFR > 60.00
[2024-05-28] MEDS: CARAFATE SUSPENSION 1 GM PO ×4 (08:28→21:56)
[2024-05-28] MEDS: FOLVITE 1 MG PO (08:28)
[2024-05-28] MEDS: THIAMINE INJECTION 100 MG IV (08:29)
[2024-05-28] MEDS: PROTONIX 40 MG PO (08:29)
[2024-05-28] MEDS: MAGNESIUM OXIDE 500 MG PO (08:29)
[2024-05-28] MEDS: VITAMIN B-12 1000 MCG PO (08:29)
--- NOTE | 2024-05-28 08:58 | W.PN.UPDATE ---
Update Note
Progress Note Update
My plan is for surgery Friday 06/01
ORIF R humerus fracture
Suspect she will be medically stable at that point
Thanks
GGMD
[2024-05-28 10:43] LABS: % Basophils 0.5 % (0-2); % Eosinophils 1.2 % (0-6); % Immature Granulocytes 1.1 % (0-0.5); % Lymphocytes 15.9 % (20.5-51.1); % Monocytes 10.7 % (1.7-9.3); % Neutrophils 70.6 % (42.2-75.2); Absolute Basophils 0.1 10^3/uL (0-0.2); Absolute Eosinophils 0.1 10^3/uL (0-0.7); Absolute Immature Granulocytes 0.1 10^3/uL (0-0.05); Absolute Lymphocytes 1.5 10^3/uL (1.2-3.4); Absolute Neutrophils 6.4 10^3/uL (1.4-6.5); Hematocrit 19.7 % (37.0-47.0); Hemoglobin 6.4 g/dL (12.0-16.0); Mean Corp Hgb Conc. 32.5 g/dL (33.0-37.0); Mean Corpuscular Hgb 31.4 pg (27.0-31.0); Mean Corpuscular Volume 96.6 fL (81.0-99.0); Mean Platelet Volume 9.8 fL (7.4-10.4); Nucleated Red Blood Cells % 0 %; Platelet Count 342 10^3/uL (130-400); Red Blood Cell Count 2.04 10^6/uL (4.20-5.40); Red Cell Dist. Width 17.3 % (11.5-14.5); White Blood Cell Count 9.1 10^3/uL (4.8-10.8)
--- NOTE | 2024-05-28 10:50 | PTCARENOTE ---
critical lab results this am reported to Dr Cardona via tiger text at 1042.
[2024-05-28] MEDS: FLUSH (NSS) 1 FLUSH IV (12:02)
[2024-05-28 13:57] LABS: Iron 29 ug/dl (37-170)
[2024-05-28 14:06] LABS: Percent Saturation 8 % (20-50); Total Iron Binding Capacity 333 ug/dl (265-497)
--- NOTE | 2024-05-28 14:15 | W.PN.HOSP.TC ---
Today's Communication/Plan
-
Transfused
IV iron.
Adjust analgesic regimen.
Alcohol withdrawal protocol.
Assessment / Plan
Assessment / Plan
Impression:
Bilateral humeral fractures.
Alcohol use disorder severe
At risk for alcohol withdrawal/DT.
JULI.
Metabolic acidosis.
Alcoholic gastritis/GERD
Acute on chronic anemia.
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
Anxiety
Plan:
Status post unwitnessed fall at home. CT head with no acute abnormalities.
Bilateral humerus fracture pain
Left proximal humerus fracture with no displacement with plan for conservative treatment with sling, embolization
Displaced right humerus shaft fracture will require surgical repair with plan for ORIF on 06/01.
Orthopedic consulted with further plan for surgical repair
Continue pain control: Tylenol, oxycodone, IV hydromorphone for breakthrough pain
Severe alcohol use disorder with multiple hospitalizations
Alcohol level on presentation at 200
Patient has poor insight on the problem.
At risk for withdrawal/DTs
Start MSAs protocol
IV thiamine
Acute on chronic anemia.
Hemoglobin drifted down from 9-6 with likely dilutional effect.
No evidence for acute blood loss.
Iron deficiency
B12 level pending
Heme check stool.
Transfused 2 units of packed red blood cells on 05/28 and follow hemoglobin.
IV iron
Metabolic acidosis, suspect alcoholic ketoacidosis.
Acute kidney injury, mild elevation of creatinine at baseline continue isotonic solution
Improved.
Monitor oral intake
Observe off IV fluids
Alcoholic gastritis/GERD
History of PUD with gastrointestinal hemorrhage
Continue PPI.
Anticipated Discharge: > 48 hours
Subjective/Interval History
-
Date of Service: May 28, 2024
Objective Data
-
Labs:
Laboratory Results
05/28/24 05/28/24
06:24 09:30
WBC Cancelled 9.1
Hgb Cancelled 6.4 L* D
Hct Cancelled 19.7 L*
Plt Count Cancelled 342 D
Sodium 136
Potassium 3.8
Chloride 106
Carbon Dioxide 17 L
BUN 9
Creatinine 0.9
Glucose 157 H
Calcium 8.1 L
Total Bilirubin 0.6
AST 22
ALT 17
Alkaline Phosphatase 88
Vital Signs:
Vital Signs
Temp Pulse Resp BP Pulse Ox
97.6 F 94 18 162/68 98
05/28/24 11:10 05/28/24 11:10 05/28/24 11:10 05/28/24 11:10 05/28/24 11:10
I&O
05/27/24 05/28/24 05/29/24
06:59 06:59 06:59
Intake Total 2220 / 2220
Output Total 600 / 600 1350 / 1350
Balance -600 / -600 870 / 870
Physical Exam
-
General: Well Developed, Well Nourished and No Apparent Distress
Respiratory: Clear to Auscultation and Non Labored Respirations
Cardiac: Regular Rhythm and S1/S2
GI: Soft, Nondistended and Tender
Musculoskeletal: No Clubbing, No Cyanosis and No Edema
Skin: Warm and Dry
Neuro: Awake, Alert, Oriented and AO x 3
Psych: Calm
[2024-05-28 14:29] LABS: Ferritin 39.8 ng/ml (11.1-264.0)
[2024-05-28 14:43] LABS: Vitamin B12 384 pg/ml (239-931)
[2024-05-28] MEDS: FLUSH (NSS) 2 FLUSH IV ×3 (16:58→23:41)
--- NOTE | 2024-05-28 17:44 | PTCARENOTE ---
pt transported to [facility] via stretcher and returned without incident. Right neck dressing clean and dry. will observe.
[2024-05-28] MEDS: LOVENOX 40 MG SC (18:26)
--- NOTE | 2024-05-28 22:13 | PTCARENOTE ---
Addendum entered by Karen Haji RN 05/28/24 23:07:
Spoke with BB, clarified abnormal temp. Incident not considered a transfusion reaction unless provider decides to label it as such. No reaction testing done, blood continues to transfuse without incident.
Original Note:
Oral temp of 99.9 15 minutes after start of blood transfusion. Tylenol given incidentally for pain management shortly after. House SOIL SURVEYOR contacted, okay to continue transfusion. Pt. asymptomatic, other VSS, rate slowed. Will monitor.
[2024-05-29] MEDS: ROXICODONE 10 MG PO (01:23)
[2024-05-29] MEDS: DILAUDID 0.5 MG IV ×5 (04:27→19:15)
[2024-05-29] MEDS: FLUSH (NSS) 2 FLUSH IV (04:27)
[2024-05-29 05:00] LABS: Blood Urea Nitrogen 7 mg/dl (7-17); Calcium 8.8 mg/dl (8.4-10.2); Carbon Dioxide 24 mmol/L (22-30); Chloride 105 mmol/L (98-107); Estimated Creatinine Clearance 59 ml/min; Glucose 126 mg/dl (70-99); Potassium 3.9 mmol/L (3.5-5.1); Sodium 137 mmol/L (135-145); eGFR > 60.00
[2024-05-29 05:32] LABS: % Basophils 0.7 % (0-2); % Eosinophils 1.9 % (0-6); % Monocytes 8.5 % (1.7-9.3); % Neutrophils 68.9 % (42.2-75.2); Absolute Basophils 0.1 10^3/uL (0-0.2); Absolute Eosinophils 0.2 10^3/uL (0-0.7); Absolute Immature Granulocytes 0.1 10^3/uL (0-0.05); Absolute Lymphocytes 1.6 10^3/uL (1.2-3.4); Absolute Monocytes 0.7 10^3/uL (0.1-0.6); Absolute Neutrophils 5.7 10^3/uL (1.4-6.5); Hemoglobin 8.7 g/dL (12.0-16.0); Mean Corp Hgb Conc. 33.5 g/dL (33.0-37.0); Mean Corpuscular Hgb 30.1 pg (27.0-31.0); Mean Platelet Volume 9.7 fL (7.4-10.4); Nucleated Red Blood Cells % 0 %; Platelet Count 328 10^3/uL (130-400); Red Blood Cell Count 2.89 10^6/uL (4.20-5.40); Red Cell Dist. Width 19.5 % (11.5-14.5); White Blood Cell Count 8.3 10^3/uL (4.8-10.8)
[2024-05-29 07:59] VITALS: BP 150/74
[2024-05-29] MEDS: VITAMIN B-12 1000 MCG PO (08:33)
[2024-05-29] MEDS: FOLVITE 1 MG PO (08:33)
[2024-05-29] MEDS: CARAFATE SUSPENSION 1 GM PO ×4 (08:33→21:17)
[2024-05-29] MEDS: MAGNESIUM OXIDE 500 MG PO (08:33)
[2024-05-29] MEDS: THIAMINE INJECTION 100 MG IV (08:33)
[2024-05-29] MEDS: PROTONIX 40 MG PO (08:33)
[2024-05-29] MEDS: FERRLECIT 110 MG IV (13:36)
--- NOTE | 2024-05-29 14:33 | CM ---
Case management following for discharge planning
Chart reviewed. Met with pt
Bilateral humerus Fx's
Scheduled for ORIF of RUE on 06/01
L arm remains in sling
For SNF at discharge - referrals sent in Care Port - will need auth
CM remains available for discharge needs
Plan - SNF when medically ready
[2024-05-29 15:46] VITALS: BP 163/81
--- NOTE | 2024-05-29 15:51 | W.PN.HOSP.TC ---
Today's Communication/Plan
-
Continue supportive care.
Continue alcohol withdrawal protocol.
For ORIF of right humeral fracture early next week.
Assessment / Plan
Assessment / Plan
Impression:
Bilateral humeral fractures.
Alcohol use disorder severe
At risk for alcohol withdrawal/DT.
JULI.
Metabolic acidosis.
Alcoholic gastritis/GERD
Acute on chronic anemia.
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
Anxiety
Plan:
Status post unwitnessed fall at home. CT head with no acute abnormalities.
Bilateral humerus fracture pain
Left proximal humerus fracture with no displacement with plan for conservative treatment with sling, embolization
Displaced right humerus shaft fracture will require surgical repair with plan for ORIF on 06/01.
Orthopedic consulted with further plan for surgical repair
Continue pain control: Tylenol, oxycodone, IV hydromorphone for breakthrough pain
Severe alcohol use disorder with multiple hospitalizations
Alcohol level on presentation at 200
Patient has poor insight on the problem.
At risk for withdrawal/DTs
Remains on alcohol withdrawal protocol with benzodiazepines with so far no evidence of delirium tremens.
IV thiamine
Acute on chronic anemia.
Hemoglobin drifted down from 9-6 with likely dilutional effect.
No evidence for acute blood loss.
Iron deficiency
B12 level pending
Heme check stool.
Transfused 2 units of packed red blood cells on 05/28 with improved hemoglobin up to 8.7.
Continue IV iron
Metabolic acidosis, suspect alcoholic ketoacidosis.
Acute kidney injury, mild elevation of creatinine at baseline continue isotonic solution
Improved.
Monitor oral intake
Observe off IV fluids
Alcoholic gastritis/GERD
History of PUD with gastrointestinal hemorrhage
Continue PPI.
Anticipated Discharge: > 48 hours
Subjective/Interval History
-
Date of Service: May 29, 2024
Objective Data
-
Labs:
Laboratory Results
05/29/24
04:32
WBC 8.3
Hgb 8.7 L D
Hct 26.0 L
Plt Count 328
Sodium 137
Potassium 3.9
Chloride 105
Carbon Dioxide 24
BUN 7
Creatinine 0.8
Glucose 126 H
Calcium 8.8
Vital Signs:
Vital Signs
Temp Pulse Resp BP Pulse Ox
98.5 F 92 14 174/97 95
05/29/24 15:46 05/29/24 15:46 05/29/24 15:46 05/29/24 15:46 05/29/24 15:46
I&O
05/28/24 05/29/24 05/30/24
06:59 06:59 06:59
Intake Total 2220 / 2220 1920 / 1920
Output Total 1350 / 1350 250 / 250
Balance 870 / 870 1670 / 1670
Physical Exam
-
General: Well Developed, Well Nourished and No Apparent Distress
Respiratory: Clear to Auscultation and Non Labored Respirations
Cardiac: Regular Rhythm and S1/S2
GI: Soft, Nondistended and Tender
Musculoskeletal: No Clubbing, No Cyanosis and No Edema
Skin: Warm and Dry
Neuro: Awake, Alert, Oriented and AO x 3
Psych: Calm
[2024-05-29] MEDS: LOVENOX 40 MG SC (17:08)
[2024-05-29 23:47] VITALS: BP 157/78
[2024-05-30] MEDS: DILAUDID 0.5 MG IV ×3 (00:37→07:02)
[2024-05-30 05:35] LABS: % Basophils 0.7 % (0-2); % Eosinophils 2.3 % (0-6); % Immature Granulocytes 0.9 % (0-0.5); % Lymphocytes 12.2 % (20.5-51.1); % Monocytes 8.5 % (1.7-9.3); % Neutrophils 75.4 % (42.2-75.2); Absolute Basophils 0.1 10^3/uL (0-0.2); Absolute Eosinophils 0.2 10^3/uL (0-0.7); Absolute Immature Granulocytes 0.1 10^3/uL (0-0.05); Absolute Lymphocytes 1.3 10^3/uL (1.2-3.4); Absolute Monocytes 0.9 10^3/uL (0.1-0.6); Hematocrit 26.8 % (37.0-47.0); Hemoglobin 9.1 g/dL (12.0-16.0); Mean Corpuscular Hgb 30.2 pg (27.0-31.0); Mean Platelet Volume 9.5 fL (7.4-10.4); Nucleated Red Blood Cells % 0 %; Platelet Count 397 10^3/uL (130-400); Red Blood Cell Count 3.01 10^6/uL (4.20-5.40); Red Cell Dist. Width 19.3 % (11.5-14.5); White Blood Cell Count 10.5 10^3/uL (4.8-10.8)
[2024-05-30 05:43] LABS: Blood Urea Nitrogen 6 mg/dl (7-17); Calcium 8.9 mg/dl (8.4-10.2); Carbon Dioxide 26 mmol/L (22-30); Chloride 102 mmol/L (98-107); Estimated Creatinine Clearance 67 ml/min; Glucose 112 mg/dl (70-99); Potassium 3.7 mmol/L (3.5-5.1); Sodium 137 mmol/L (135-145); eGFR > 60.00
[2024-05-30 07:46] VITALS: BP 174/78
[2024-05-30] MEDS: THIAMINE INJECTION 100 MG IV (08:27)
[2024-05-30] MEDS: PROTONIX 40 MG PO (08:27)
[2024-05-30] MEDS: CARAFATE SUSPENSION 1 GM PO ×4 (08:27→21:07)
[2024-05-30] MEDS: FOLVITE 1 MG PO (08:27)
[2024-05-30] MEDS: VITAMIN B-12 1000 MCG PO (08:27)
[2024-05-30] MEDS: MAGNESIUM OXIDE 500 MG PO (08:27)
[2024-05-30] MEDS: TYLENOL 650 MG PO ×2 (08:38→21:06)
[2024-05-30] MEDS: MILK OF MAGNESIA 30 ML PO (08:38)
[2024-05-30] MEDS: ROXICODONE 10 MG PO ×3 (10:10→22:29)
[2024-05-30] MEDS: COMPAZINE 10 MG IV (10:10)
[2024-05-30 11:51] VITALS: BP 174/88
[2024-05-30 13:00] VITALS: BP 148/78; PULSE 80; O2SAT 98
[2024-05-30] MEDS: FERRLECIT 110 MG IV (14:25)
--- NOTE | 2024-05-30 14:53 | W.PN.HOSP.TC ---
Today's Communication/Plan
-
CW current tx
Add prn xanax for anxiety
Assessment / Plan
Assessment / Plan
Impression:
Bilateral humeral fractures.
Alcohol use disorder severe
At risk for alcohol withdrawal/DT.
JULI.
Metabolic acidosis.
Alcoholic gastritis/GERD
Acute on chronic anemia.
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
Anxiety
Plan:
Status post unwitnessed fall at home. CT head with no acute abnormalities.
Bilateral humerus fracture pain
Left proximal humerus fracture with no displacement with plan for conservative treatment with sling, embolization
Displaced right humerus shaft fracture will require surgical repair with plan for ORIF on 06/01.
Orthopedic consulted with further plan for surgical repair
Continue pain control: Tylenol, oxycodone, IV hydromorphone for breakthrough pain
Severe alcohol use disorder with multiple hospitalizations
Alcohol level on presentation at 200
Patient has poor insight on the problem.
At risk for withdrawal/DTs
Remains on alcohol withdrawal protocol with benzodiazepines with so far no evidence of delirium tremens.
IV thiamine
Acute on chronic anemia.
Hemoglobin drifted down from 9-6 with likely dilutional effect.
No evidence for acute blood loss.
Iron deficiency
B12 level pending
Heme check stool.
Transfused 2 units of packed red blood cells on 05/28 with improved hemoglobin up to 8.7.
Continue IV iron
Metabolic acidosis, suspect alcoholic ketoacidosis.
Acute kidney injury, mild elevation of creatinine at baseline continue isotonic solution
Improved.
Monitor oral intake
Observe off IV fluids
Alcoholic gastritis/GERD
History of PUD with gastrointestinal hemorrhage
Continue PPI.
Anticipated Discharge: > 48 hours
Subjective/Interval History
-
Date of Service: May 30, 2024
Pain persists in her arms. Slight swelling in her hands but no tingling or numbness.
Feels Anxious in general- says she takes anxiety med at home.
Objective Data
-
Labs:
Laboratory Results
05/30/24
04:49
WBC 10.5
Hgb 9.1 L
Hct 26.8 L
Plt Count 397 D
Sodium 137
Potassium 3.7
Chloride 102
Carbon Dioxide 26
BUN 6 L
Creatinine 0.7
Glucose 112 H
Calcium 8.9
Vital Signs:
Vital Signs
Temp Pulse Resp BP Pulse Ox
99.3 F 84 19 174/88 94
05/30/24 07:46 05/30/24 11:51 05/30/24 07:46 05/30/24 11:51 05/30/24 07:46
I&O
05/29/24 05/30/24 05/31/24
06:59 06:59 06:59
Intake Total 1920 / 1920 680 / 680
Output Total 250 / 250 1450 / 1450
Balance 1670 / 1670 -770 / -770
Review of Systems
-
Constitutional: Denies Fever
Respiratory: Denies Trouble Breathing
Cardiac: Denies Chest Pain
Abdomen/GI: Denies Abdominal Pain, Nausea or Vomiting
Neuro: Denies Dizzy
Physical Exam
-
HEENT: Moist Mucous Membranes
Respiratory: Non Labored Respirations; Negative Accessory Resp Muscle Use
Cardiac: Regular Rhythm and S1/S2
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
Psych: Calm
Data Reviewed
-
Labs: Labs Reviewed by me
[2024-05-30] MEDS: XANAX 0.5 MG PO (15:22)
[2024-05-30 15:35] VITALS: BP 157/83
[2024-05-30] MEDS: LOVENOX 40 MG SC (18:07)
[2024-05-30 22:38] VITALS: BP 152/86
[2024-05-31] MEDS: XANAX 0.5 MG PO (00:24)
[2024-05-31] MEDS: ROXICODONE 10 MG PO (04:42)
[2024-05-31 07:15] VITALS: BP 155/85
[2024-05-31] MEDS: MAGNESIUM OXIDE 500 MG PO (09:02)
[2024-05-31] MEDS: CARAFATE SUSPENSION 1 GM PO ×4 (09:02→20:29)
[2024-05-31] MEDS: PROTONIX 40 MG PO (09:02)
[2024-05-31] MEDS: VITAMIN B-12 1000 MCG PO (09:02)
[2024-05-31] MEDS: FOLVITE 1 MG PO (09:02)
[2024-05-31] MEDS: THIAMINE INJECTION 100 MG IV (09:02)
[2024-05-31] MEDS: DILAUDID 0.5 MG IV ×4 (10:26→20:28)
--- NOTE | 2024-05-31 11:15 | W.PN.HOSP.TC ---
Today's Communication/Plan
-
OR tomorrow
CW current pain regimen
Assessment / Plan
Assessment / Plan
Impression:
Bilateral humeral fractures.
Alcohol use disorder severe
At risk for alcohol withdrawal/DT.
JULI.
Metabolic acidosis.
Alcoholic gastritis/GERD
Acute on chronic anemia.
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
Anxiety
Plan:
Status post unwitnessed fall at home. CT head with no acute abnormalities.
Bilateral humerus fracture pain
Left proximal humerus fracture with no displacement with plan for conservative treatment with sling, embolization
Displaced right humerus shaft fracture will require surgical repair with plan for ORIF on 06/01.
Orthopedic consulted with further plan for surgical repair
Continue pain control: Tylenol, oxycodone, IV hydromorphone for breakthrough pain
Severe alcohol use disorder with multiple hospitalizations
Alcohol level on presentation at 200
Patient has poor insight on the problem.
At risk for withdrawal/DTs
Remains on alcohol withdrawal protocol with benzodiazepines with so far no evidence of delirium tremens.
IV thiamine
Acute on chronic anemia.
Hemoglobin drifted down from 9-6 with likely dilutional effect.
No evidence for acute blood loss.
Iron deficiency
B12 level OK
Heme check stool.
Transfused 2 units of packed red blood cells on 05/28 with improved hemoglobin up to 8.7. HH stable.
Continue IV iron
Metabolic acidosis, suspect alcoholic ketoacidosis.
Acute kidney injury, mild elevation of creatinine at baseline continue isotonic solution
Resolved
Monitor oral intake
Observe off IV fluids
Alcoholic gastritis/GERD
History of PUD with gastrointestinal hemorrhage
Continue PPI.
Anticipated Discharge: > 48 hours
Subjective/Interval History
-
Date of Service: May 31, 2024
Pain is ok from fracture sites
Denies new symptoms
Objective Data
-
Vital Signs:
Vital Signs
Temp Pulse Resp BP Pulse Ox
97.7 F 84 18 155/85 94
05/31/24 07:15 05/31/24 07:15 05/31/24 07:15 05/31/24 07:15 05/31/24 07:15
I&O
05/30/24 05/31/24 06/01/24
06:59 06:59 06:59
Intake Total 680 / 680 840 / 840
Output Total 1450 / 1450 500 / 500
Balance -770 / -770 340 / 340
Review of Systems
-
Constitutional: Denies Fever
Respiratory: Denies Trouble Breathing
Cardiac: Denies Chest Pain
Abdomen/GI: Denies Abdominal Pain, Nausea or Vomiting
Neuro: Denies Dizzy
Physical Exam
-
General: No Apparent Distress
Respiratory: Non Labored Respirations; Negative Accessory Resp Muscle Use
Cardiac: Negative Tachycardic
Musculoskeletal: Other (palpable radial artery BL)
Neuro: AO x 3
[2024-05-31 12:01] VITALS: BP 153/97; PULSE 98
[2024-05-31] MEDS: FERRLECIT 110 MG IV (13:52)
[2024-05-31 15:10] VITALS: BP 154/78
--- NOTE | 2024-05-31 16:25 | CHAP ---
Trudy was in a lot of pain, and is worried about how she will manage going forward. Emotional and spiritual support provided. Reported her concerns to the nurse.
[2024-05-31] MEDS: LOVENOX 40 MG SC (17:20)
[2024-05-31] MEDS: TYLENOL 650 MG PO (19:31)
[2024-05-31 23:04] VITALS: BP 144/83
[2024-06-01] VITALS (11 sets, daily range): BP systolic 113–192; BP diastolic 61–95
[2024-06-01] MEDS: XANAX 0.5 MG PO (00:46)
[2024-06-01] MEDS: DILAUDID 0.5 MG IV ×3 (00:46→12:50)
[2024-06-01] MEDS: CARAFATE SUSPENSION PO ×3 (08:33→21:46)
[2024-06-01] MEDS: FLUSH (NSS) 2 FLUSH IV ×3 (08:35→14:39)
[2024-06-01] MEDS: THIAMINE INJECTION 100 MG IV (08:35)
[2024-06-01] MEDS: MAGNESIUM OXIDE 500 MG PO (08:40)
[2024-06-01] MEDS: VITAMIN B-12 1000 MCG PO (08:40)
[2024-06-01] MEDS: FOLVITE 1 MG PO (08:40)
[2024-06-01] MEDS: PROTONIX 40 MG PO (08:40)
--- NOTE | 2024-06-01 09:11 | W.PN.UPDATE ---
Update Note
Progress Note Update
Surgery for later today
Cannot do with torniquet so blood loss expected
Would transfuse one more unit of PRBCs preop
Thanks
GGMD
--- NOTE | 2024-06-01 11:23 | CM ---
Case management following for discharge planning
Chart reviewed
For ORIF today of R humerus fx
For SNF when medically ready - will need auth
CM remains available for discharge needs
Plan - anticipate transfer to SNF when medically ready
[2024-06-01] MEDS: APRESOLINE 5 MG IV (11:28)
[2024-06-01] MEDS: NSS (PRESERVATIVE FREE) 0.5 ML IV (14:35)
[2024-06-01] MEDS: ATIVAN 1 MG IV (14:35)
--- NOTE | 2024-06-01 15:05 | W.PN.HOSP.TC ---
Today's Communication/Plan
-
ORIF
Transfuse
Assessment / Plan
Assessment / Plan
Impression:
Bilateral humeral fractures.
Alcohol use disorder severe
At risk for alcohol withdrawal/DT.
JULI.
Metabolic acidosis.
Alcoholic gastritis/GERD
Acute on chronic anemia.
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
Anxiety
Plan:
Status post unwitnessed fall at home. CT head with no acute abnormalities.
Bilateral humerus fracture pain
Left proximal humerus fracture with no displacement with plan for conservative treatment with sling, embolization
Displaced right humerus shaft fracture will require surgical repair with plan for ORIF on 06/01.
Orthopedic consulted with further plan for surgical repair
Continue pain control: Tylenol, oxycodone, IV hydromorphone for breakthrough pain
Severe alcohol use disorder with multiple hospitalizations
Alcohol level on presentation at 200
Patient has poor insight on the problem.
At risk for withdrawal/DTs
Remains on alcohol withdrawal protocol with benzodiazepines with so far no evidence of delirium tremens.
IV thiamine
Acute on chronic anemia.
Hemoglobin drifted down from 9-6 with likely dilutional effect.
No evidence for acute blood loss.
Iron deficiency
B12 level OK
Heme check stool.
Transfused 2 units of packed red blood cells on 05/28 with improved hemoglobin up to 8.7. HH stable.
Continue IV iron
Metabolic acidosis, suspect alcoholic ketoacidosis.
Acute kidney injury, mild elevation of creatinine at baseline continue isotonic solution
Resolved
Monitor oral intake
Observe off IV fluids
Alcoholic gastritis/GERD
History of PUD with gastrointestinal hemorrhage
Continue PPI.
Anticipated Discharge: > 48 hours
Subjective/Interval History
-
Date of Service: June 01, 2024
Objective Data
-
Vital Signs:
Vital Signs
Temp Pulse Resp BP Pulse Ox
98.4 F 84 16 192/90 92
06/01/24 14:11 06/01/24 14:11 06/01/24 14:11 06/01/24 14:11 06/01/24 07:28
I&O
05/31/24 06/01/24 06/02/24
06:59 06:59 06:59
Intake Total 840 / 840 1460 / 1460 250 / 250
Output Total 500 / 500 1525 / 1525
Balance 340 / 340 -65 / -65 250 / 250
Physical Exam
-
General: No Apparent Distress
Respiratory: Non Labored Respirations; Negative Accessory Resp Muscle Use
Cardiac: Negative Tachycardic
Musculoskeletal: Other (palpable radial artery BL)
Neuro: AO x 3
[2024-06-01] MEDS: FERRLECIT IV (20:00)
[2024-06-01] MEDS: LOVENOX 40 MG SC (21:34)
[2024-06-01] MEDS: COMPAZINE 10 MG IV (21:35)
[2024-06-01] MEDS: CARAFATE SUSPENSION 1 GM PO (21:46)
--- NOTE | 2024-06-01 23:21 | TRANSFER ---
Report received from BUNDLE CUTTERJUAN DANIEL Jennings. PT arrived from PACU in bed at 1938 s/p right humerus ORIF. Pt drowsy but answers appropriately. Right shoulder w primaseal CDI, RUE in sling. Some edema noted to right hand - arm elevated on pillow. Right hand
w numbness per pt, otherwise +C/M. VSS. Green call campos within reach, bed i n lowest position.
[2024-06-02] VITALS (8 sets, daily range): BP systolic 134–162; BP diastolic 72–117; PULSE 94–103
[2024-06-02] MEDS: ROXICODONE 10 MG PO ×3 (03:30→23:51)
[2024-06-02 05:37] LABS: % Basophils 0.2 % (0-2); % Immature Granulocytes 0.8 % (0-0.5); % Lymphocytes 4.4 % (20.5-51.1); % Monocytes 5.2 % (1.7-9.3); % Neutrophils 89.4 % (42.2-75.2); Absolute Immature Granulocytes 0.1 10^3/uL (0-0.05); Absolute Lymphocytes 0.5 10^3/uL (1.2-3.4); Absolute Monocytes 0.6 10^3/uL (0.1-0.6); Absolute Neutrophils 10.8 10^3/uL (1.4-6.5); Hematocrit 29.9 % (37.0-47.0); Mean Corp Hgb Conc. 33.4 g/dL (33.0-37.0); Mean Corpuscular Hgb 29.9 pg (27.0-31.0); Mean Corpuscular Volume 89.3 fL (81.0-99.0); Mean Platelet Volume 9.7 fL (7.4-10.4); Nucleated Red Blood Cells % 0 %; Platelet Count 455 10^3/uL (130-400); Red Blood Cell Count 3.35 10^6/uL (4.20-5.40); Red Cell Dist. Width 19.2 % (11.5-14.5); White Blood Cell Count 12.1 10^3/uL (4.8-10.8)
[2024-06-02 06:03] LABS: Blood Urea Nitrogen 11 mg/dl (7-17); Calcium 9.1 mg/dl (8.4-10.2); Carbon Dioxide 22 mmol/L (22-30); Chloride 102 mmol/L (98-107); Estimated Creatinine Clearance 67 ml/min; Glucose 178 mg/dl (70-99); Sodium 141 mmol/L (135-145); eGFR > 60.00
--- NOTE | 2024-06-02 08:11 | W.PN.UPDATE ---
Update Note
Progress Note Update
Stable PO day 1--H/H stable
Leave dressing on and dry
Will need at least one functioning upper extremity
Would allow RIGHT upper extremity limited function as this side is surgically stablized
Continue immobilization L UE in sling
Sling all other times for R UE when resting--may move shoulder/elbow/wrist/hand digits on RIGHT
But no lifting pushing or pulling > 5 lbs until further notice
I hope this gives rehab some direction for postop care
Have F/U with me in about 7-10 days
GGMD
[2024-06-02] MEDS: MAGNESIUM OXIDE 500 MG PO (08:52)
[2024-06-02] MEDS: PROTONIX 40 MG PO (08:52)
[2024-06-02] MEDS: FOLVITE 1 MG PO (08:52)
[2024-06-02] MEDS: VITAMIN B-12 1000 MCG PO (08:52)
[2024-06-02] MEDS: CARAFATE SUSPENSION 1 GM PO ×4 (08:52→23:48)
[2024-06-02] MEDS: THIAMINE INJECTION 100 MG IV (08:53)
[2024-06-02] MEDS: FLUSH (NSS) 2 FLUSH IV ×3 (08:55→13:40)
[2024-06-02] MEDS: DILAUDID 0.5 MG IV ×4 (09:04→19:51)
[2024-06-02] MEDS: FERRLECIT 110 MG IV (13:40)
[2024-06-02] MEDS: APRESOLINE 5 MG IV (16:03)
[2024-06-02] MEDS: FLUSH (NSS) 3 FLUSH IV (16:05)
--- NOTE | 2024-06-02 16:16 | CM ---
Addendum entered by Lorena Ralph 06/02/24 16:51:
Auth began in [employer]
Pend Ref # [id number]
Fax sent - incomplete; will attempt to resend
Original Note:
Spoke with pt. Accepted at both the [facility] and [facility] in [place] - prefers [facility]
Updates sent in [facility]
Femi Godoy at [facility] does have beds and can accept
Plan - [facility] when medically ready
--- NOTE | 2024-06-02 17:26 | W.PN.HOSP.TC ---
Today's Communication/Plan
-
Resume physical therapy
Adjust analgesic regimen accordingly.
[facility]
Assessment / Plan
Assessment / Plan
Impression:
Bilateral humeral fractures.
Alcohol use disorder severe
At risk for alcohol withdrawal/DT.
JULI.
Metabolic acidosis.
Alcoholic gastritis/GERD
Acute on chronic anemia.
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
Anxiety
Plan:
Status post unwitnessed fall at home. CT head with no acute abnormalities.
Bilateral humerus fracture pain
Left proximal humerus fracture with no displacement with plan for conservative treatment with sling, embolization
Status post ORIF right humeral fracture on 06/01.
Orthopedic consulted with further plan for surgical repair
Continue pain control: Tylenol, oxycodone, IV hydromorphone for breakthrough pain
Severe alcohol use disorder with multiple hospitalizations
Alcohol level on presentation at 200
Patient has poor insight on the problem.
At risk for withdrawal/DTs
Remains on alcohol withdrawal protocol with benzodiazepines with so far no evidence of delirium tremens.
IV thiamine
Acute on chronic anemia.
Hemoglobin drifted down from 9-6 with likely dilutional effect.
No evidence for acute blood loss.
Iron deficiency
B12 level OK
Heme check stool.
Transfused 2 units of packed red blood cells on 05/28 with improved hemoglobin up to 8.7. HH stable.
Continue IV iron
Metabolic acidosis, suspect alcoholic ketoacidosis.
Acute kidney injury, mild elevation of creatinine at baseline continue isotonic solution
Resolved
Monitor oral intake
Observe off IV fluids
Alcoholic gastritis/GERD
History of PUD with gastrointestinal hemorrhage
Continue PPI.
Anticipated Discharge: 24 - 48 hours
Subjective/Interval History
-
Date of Service: June 02, 2024
Objective Data
-
Labs:
Laboratory Results
06/02/24 06/02/24
04:48 04:49
WBC 12.1 H
Hgb 10.0 L
Hct 29.9 L
Plt Count 455 H
Sodium 141
Potassium 4.0
Chloride 102
Carbon Dioxide 22
BUN 11
Creatinine 0.7
Glucose 178 H
Calcium 9.1
Vital Signs:
Vital Signs
Temp Pulse Resp BP Pulse Ox
98.4 F 100 18 162/98 96
06/02/24 15:10 06/02/24 16:03 06/02/24 15:10 06/02/24 16:03 06/02/24 15:10
I&O
06/01/24 06/02/24 06/03/24
06:59 06:59 06:59
Intake Total 1460 / 1460 830 / 830
Output Total 1525 / 1525 325 / 325
Balance -65 / -65 505 / 505
Physical Exam
-
General: No Apparent Distress
Respiratory: Non Labored Respirations; Negative Accessory Resp Muscle Use
Cardiac: Negative Tachycardic
Musculoskeletal: Other (palpable radial artery BL)
Neuro: AO x 3
--- NOTE | 2024-06-02 17:33 | W.PN.UPDATE ---
Update Note
Progress Note Update
Dressing intact
R UE NVI
Plan as per note earlier this am
Please consider setting up outpatient pain management
Perhaps this is something the rehab facility can arrange
thanks
GGMD
[2024-06-02] MEDS: LOVENOX 40 MG SC (17:54)
[2024-06-03] MEDS: XANAX 0.5 MG PO ×2 (00:25→12:53)
[2024-06-03 07:55] VITALS: BP 137/74
[2024-06-03] MEDS: ROXICODONE 10 MG PO ×3 (08:04→16:53)
[2024-06-03] MEDS: VITAMIN B-12 1000 MCG PO (08:04)
[2024-06-03] MEDS: MAGNESIUM OXIDE 500 MG PO (08:04)
[2024-06-03] MEDS: PROTONIX 40 MG PO (08:05)
[2024-06-03] MEDS: FOLVITE 1 MG PO (08:05)
[2024-06-03] MEDS: THIAMINE INJECTION 100 MG IV (08:05)
[2024-06-03] MEDS: CARAFATE SUSPENSION 1 GM PO ×3 (08:05→16:50)
--- NOTE | 2024-06-03 09:16 | PN.CDI ---
CDI
- -
CDI:
Physician Documentation Request
Admit Date: 05/27/24 11:06
Dear Doctor Brendan,
Please review the following and provide your response in the progress notes.
Clinical Indicators:
Pt admitted with Displaced right humeral shaft fracture s/p ORIF 06/01
Update note 06/01 , ' Cannot do with torniquet so blood loss expected Would transfuse one more unit of PRBCs preop...'
ESBL 200 ml
Progress notes , 'Acute on chronic anemia.Hemoglobin drifted down from 9-6 with likely dilutional effect...Iron deficiency...Continue IV iron....'
Based on the above, could you clarify, in your progress note, which of the following is the most likely type of anemia you are evaluating, monitoring and/or treating?
Acute blood loss anemia with baseline chronic Iron deficiency Anemia
Anemia of chronic disease of Iron Deficiency only
Other
Use of terms such as suspected, likely, concern for, or probable (associated with a specific diagnosis that is being evaluated, monitored, or treated as if it exists) are acceptable and can be coded in the inpatient setting, when documented at the
time of discharge.
Thank you,
Nia Godoy RN
CDI Specialist
[facility]
Please use your independent medical judgment in providing your response.
--- NOTE | 2024-06-03 11:29 | CM ---
Addendum entered by Lorena Ralph 06/03/24 15:27:
Called pts friend marylu to inform her of transport to [facility] - Phone went to VM unable to leave message
Called pts daughter - LM on VM - transferring to [facility] and given time
Facility notified of transport time - 5PM
Addendum entered by Lorena Ralph 06/03/24 15:02:
Medically ready for discharge
Plan - transfer to [facility] Марина Harris
R - [phone]
F - [phone]
Original Note:
Case management following for discharge planning
Obtained auth in [employer]
Certification Number - [id number]
Approved 06/03-06/09 for SNF
Erma at [facility] given auth info
Dr Cardona made aware
Plan - transfer to [facility] when medically stable
[2024-06-03 11:42] VITALS: BP 126/73; BP 130/88; PULSE 97; O2SAT 94
[2024-06-03 11:46] VITALS: BP 126/73; BP 130/88; PULSE 96; O2SAT 94
--- NOTE | 2024-06-03 14:51 | W.DS.TRANS ---
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
-
Discharge Instructions:
Discharge Diagnosis/Procedures Bilateral humeral fractures.
Alcohol use disorder severe
At risk for alcohol withdrawal/DT.
JULI.
Metabolic acidosis.
Alcoholic gastritis/GERD
Acute on chronic anemia.
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
Anxiety
Diet Regular
Additional Activity allow RIGHT upper extremity limited function as
this side is surgically stablized
Continue immobilization L UE in sling
Sling all other times for R UE when resting--may
move shoulder/elbow/wrist/hand digits on RIGHT
But no lifting pushing or pulling > 5 lbs until
further notice
Instructions:
Stand-Alone Forms:
Changes to Home Medications: No
Discharge Medications:
DC Medications w/original date entered in [employer]
folic acid 1 mg tablet 1 mg PO DAILY #30 tabs 04/13/24
magnesium oxide 500 mg capsule 500 mg PO BID #60 caps 04/13/24
sucralfate 100 mg/mL oral suspension 1 g (10 mL) PO ACHS #414 mL 04/13/24
cyanocobalamin (vitamin B-12) 1,000 mcg tablet 1,000 mcg PO DAILY 30 days #30 tabs 05/04/24
acetaminophen 325 mg tablet 650 mg (2 x 325 mg) PO Q4HPRN PRN Mild Pain / Temp > 101 #0 tabs 05/23/24
pantoprazole 40 mg tablet,delayed release 40 mg PO BID #0 tabs 05/23/24
thiamine HCl (vitamin B1) 100 mg tablet 100 mg PO DAILY #30 tabs 05/23/24
oxycodone 10 mg tablet 10 mg PO Q4HPRN PRN severe pain #20 tabs 06/03/24
polyethylene glycol 3350 17 gram oral powder packet (HealthyLax) 17 g PO DAILYPRN PRN constipation #30 ea 06/03/24
sennosides 8.6 mg-docusate sodium 50 mg tablet 1 tab PO BIDPRN PRN constipation #60 tabs 06/03/24
Home Medication Changes
Pending Results: No
[2024-06-03 15:34] VITALS: BP 117/71
--- NOTE | 2024-06-03 17:11 | PTCARENOTE ---
Right TL IJ removed by IV team around 1640. Patient discharged to [facility]. Picked up around 1700 via ambulance by [facility]. Attempted to call report at 1630 and again at 1700 with no success. Left note on the front of
chart with return number for the facility to call report when patient arrives.
== END 2024-06-03 17:28 | DRG 493 ==
LOC: 2 SOUTH 11:06
PROVIDERS: ADMITTING PHYSICIAN Internal Medicine; ATTENDING PHYSICIAN Internal Medicine; CONSULT PHYSICIAN Orthopaedic Surgery Hand Surgery; EMERGENCY PHYSICIAN Emergency Medicine; FAMILY PHYSICIAN Family Medicine
PROC: 30233N1 Transfusion of Nonautologous Red Blood Cells into Peripheral Vein, Percutaneous Approach (ICD-10-PCS; 2024-05-28)
PROC: 0PSF04Z Reposition Right Humeral Shaft with Internal Fixation Device, Open Approach (ICD-10-PCS; 2024-06-01)
DX: S42.331A Displaced oblique fracture of shaft of humerus, right arm, initial encounter for closed fracture (principal); E46 Unspecified protein-calorie malnutrition; S42.295A Other nondisplaced fracture of upper end of left humerus, initial encounter for closed fracture; N17.9 Acute kidney failure, unspecified; E87.20 Acidosis, unspecified; F10.229 Alcohol dependence with intoxication, unspecified; Y90.7 Blood alcohol level of 200-239 mg/100 ml; I10 Essential (primary) hypertension; F41.9 Anxiety disorder, unspecified; E86.0 Dehydration; D50.9 Iron deficiency anemia, unspecified; K21.9 Gastro-esophageal reflux disease without esophagitis; K29.20 Alcoholic gastritis without bleeding; D53.9 Nutritional anemia, unspecified; W18.39XA Other fall on same level, initial encounter; Z79.899 Other long term (current) drug therapy; Z87.891 Personal history of nicotine dependence; Z88.6 Allergy status to analgesic agent; Z88.2 Allergy status to sulfonamides; Z88.8 Allergy status to other drugs, medicaments and biological substances; Z91.199 Patient's noncompliance with other medical treatment and regimen due to unspecified reason; Z68.22 Body mass index [BMI] 22.0-22.9, adult
CPT/HCPCS: 36556; 51701; 51798; 70450; 71046; 72125; 73060; 73070; 74177; 76000; 76937; 77001; 80048; 80053; 82077; 82550; 82607; 82728; 83540; 83550; 83735; 84484; 85025; 86850; 86900; 86901; 86920; 93005; 94760; 96361; 96374; 96375; 97110; 97116; 97163; 97167; 97530; 97535; 99285; C1713; C1751; J2916; P9016; Q9967

== ENCOUNTER 2025-02-02 03:45 | Inpatient (IN) | payer MEDICARE, SELFPAY ==
[2025-02-01 20:48] VITALS: BP 144/122
[2025-02-01 20:52] VITALS: BMI 23.4
[2025-02-01 20:57] VITALS: BP 150/102
[2025-02-01 21:00] VITALS: BP 146/110
[2025-02-01] MEDS: ZOFRAN 4 MG IV ×2 (21:14→22:50)
[2025-02-01] MEDS: NSS 1000 IV (21:17)
[2025-02-01 21:23] LABS: % Basophils 0.7 % (0-2); % Eosinophils 0.1 % (0-6); % Immature Granulocytes 0.5 % (0-0.5); % Lymphocytes 19.3 % (20.5-51.1); % Monocytes 4.5 % (1.7-9.3); % Neutrophils 74.9 % (42.2-75.2); Absolute Basophils 0.1 10^3/uL (0-0.2); Absolute Immature Granulocytes 0.1 10^3/uL (0-0.05); Absolute Monocytes 0.7 10^3/uL (0.1-0.6); Absolute Neutrophils 11.6 10^3/uL (1.4-6.5); Hematocrit 37.7 % (37.0-47.0); Hemoglobin 13.5 g/dL (12.0-16.0); Mean Corp Hgb Conc. 35.8 g/dL (33.0-37.0); Mean Corpuscular Hgb 33.2 pg (27.0-31.0); Mean Corpuscular Volume 92.6 fL (81.0-99.0); Mean Platelet Volume 9.1 fL (7.4-10.4); Nucleated Red Blood Cells % 0 %; Platelet Count 330 10^3/uL (130-400); Red Blood Cell Count 4.07 10^6/uL (4.20-5.40); Red Cell Dist. Width 15.4 % (11.5-14.5); White Blood Cell Count 15.5 10^3/uL (4.8-10.8)
[2025-02-01 21:40] LABS: ALT (SGPT) 19 U/L (0-35); AST (SGOT) 30 U/L (14-36); Albumin 4.8 g/dl (3.5-5.0); Alcohol 104 mg/dl; Alkaline Phosphatase 159 U/L (38-126); Blood Urea Nitrogen 22 mg/dl (7-17); Calcium 10.2 mg/dl (8.4-10.2); Carbon Dioxide 14 mmol/L (22-30); Chloride 105 mmol/L (98-107); Estimated Creatinine Clearance 42 ml/min; Glucose 89 mg/dl (70-99); Lipase 75 U/L (23-300); Potassium 3.9 mmol/L (3.5-5.1); Sodium 145 mmol/L (135-145); Total Bilirubin 0.7 mg/dl (0.2-1.3); Total Protein 7.5 g/dl (6.3-8.2); eGFR 53.72
[2025-02-01 21:45] LABS: Troponin I < 0.012 ng/ml
[2025-02-01] MEDS: MORPHINE SULFATE 4 MG IV (22:11)
[2025-02-01 22:13] VITALS: BP 138/75
--- NOTE | 2025-02-01 22:56 | ED.GENMED ---
History of Present Illness
General
Chief Complaint: Chest Pain
Time Seen by Provider: 02/01/25 20:53
History of Present Illness
History of Present Illness:
69-year-old female with history of alcohol abuse, alcoholic liver disease, reflux esophagitis, anemia, anxiety presenting for upper abdominal pain/chest pain and nausea and vomiting. Patient reports symptoms started this morning. Pain is in the
epigastric and right upper quadrant of the abdomen. Notes that she tried staying home to see if the symptoms would go away, however called the ambulance after symptoms persisted. Denies any changes in her stool. Reports history of cholecystectomy
in the past. Denies any alcohol usage as of recent. Denies difficulty breathing. Denies any known cardiac issues. Denies fever. Denies additional acute medical complaints
Past History
Past History
ED Past Medical History: Cancer (Skin Cancer face), GERD, HTN, Psychiatric (Anxiety), Other (GI bleeding, Hiatal hernia. Ulcers, anemia. Migraine headaches, Colitis) and Other (recent colitis November/December 2023, severe esophagitis, alcohol abuse,
benzodiazepine withdrawal)
ED Past Surgical History: Appendectomy, Cholecystectomy, Gynecological (hysterectomy,), Orthopedic and Other (Mohs skin surgery, RUE epicondylitis X 2)
Patient has exhibited threatening behavior?: No
PSI?: No
Social History
Tobacco: Former smoker
Alcohol: Binge drinker
Drug: None and Other (History of benzodiazepine abuse)
Personal:
Living: alone
Family History
Family History: Other (Noncontributory)
Phy Exam
Physical Exam
Physical Exam:
General: Anxious
HEENT: protecting airway
Neck: appears supple
CV: Tachycardic, regular rhythm, no evidence of cyanosis
Resp: No accessory muscle use, no increased work of breathing, lungs clear to auscultation bilaterally
Abd: Soft and non-distended, generalized tenderness to the epigastric and right upper quadrant region of the abdomen
Extremities: No deformities, no swelling
Neuro: alert, no focal neurologic deficit
: deferred
Rectal: deferred
Psych: Normal affect
Skin: Intact
Scores
Heart Score for Chest Pain Patients
STEMI patient?: Not applicable
Course
Orders/Labs/Results
Orders:
Orders
02/01/25 20:46
Electrocardiogram (*1) Urgent
Reason for Study: Chest Pain
Cardiac Monitoring- Treatment ONCE
EKG- Treatment ONCE
IV Insert/Care/Rem.- Treatment PRN
02/01/25 21:00
0.9% Sodium Chloride 1000 ml [Nss] 1,000 ml IV BOLUS
Ondansetron Injectable [Zofran] 4 mg IV NOW STA
02/01/25 21:13
Alcohol Urgent
Complete Blood Count/With Diff Urgent
Comprehensive Metabolic Panel Urgent
Lipase Urgent
Troponin I Urgent
02/01/25 21:21
Morphine Sulfate 4 mg IV NOW STA
02/01/25 22:39
Ondansetron Injectable [Zofran] 4 mg IV NOW STA
02/01/25 22:55
Pantoprazole [Protonix IV] 40 mg IV NOW STA
02/01/25 23:37
Metoclopramide [Reglan] 5 mg IV NOW STA
02/01/25 23:38
Lorazepam [Ativan] 1 mg IV NOW STA
02/02/25 00:00
CT Abd/pelvis W Iv Cont Urgent
Reason For Exam: diffuse upper abd pain with vomiting
02/02/25 03:09
Lorazepam [Ativan] 1 mg IV NOW STA
02/02/25 03:14
Ampicillin/Sulbactam 3 G [Unasyn] 3 gm 0.9% Sodium Chloride 100 ml [Nss] 100 ml IV NOW
02/02/25 03:31
Admit/Transfer Patient As Directed
Co-Sign Provider:
Level of Care: Inpatient admission
Assign to:: Medical/Surgical
Physician / Group: Kaelyn
Diagnosis: Colitis
Reason for Hospitalization: Acute colitis
Expected length of stay greater than two midnights?: Yes
ELOS- Estimated Length of Stay in days: 2
I certify the patient meets the requirements for IP care: Yes
PRN Pain Medication Management As Directed
May give lesser potent ordered pain med per pt: Yes
preference::
Protocol:: Medication orders for pain may be administered in a
manner that supports deferring to patient preference
when the pt is:
- Requesting an ordered lesser potent pain medication.
Least to most potent pain medications are defined
as: acetaminophen < NSAID < tramadol < opioids
(morphine, oxycodone, hydromorphone).
- Requesting a lesser dose of the same medication IF
ORDERED.
- Requesting a less intrusive route of administration
if both routes are prescribed by the provider (PO <
IV).
02/02/25 03:32
Code Status As Directed
Resuscitation Status: Full Code
02/02/25 04:00
Flush (0.9% Sodium Chloride) [Flush (Nss)] See Dose Instructions IV PER PROTOCOL
02/02/25 Breakfast
Clear Liquid
At Your Request: Limited, Meter/Relay Technician Required
02/02/25 06:13
Acetaminophen [Tylenol] 650 mg PO Q4HPRN PRN
Bisacodyl [Dulcolax] 10 mg RECTAL [id number] PRN
Dextrose 5%/Lactringers 500 ml [D5lr] 1,000 ml IV 100 mls/hr
Docusate W/Senna [Senokot-S] 1 tablet PO BIDPRN PRN
HYDROmorphone [Dilaudid] 0.5 mg IV Q4HPRN PRN
Lorazepam [Ativan] 0.5 mg PO BID PRN
Ondansetron Injectable [Zofran] 4 mg IV Q6HPRN PRN
Oxycodone [Roxicodone] 5 mg PO Q4HPRN PRN
Polyethylene Glycol Powder [Miralax] 17 grams PO DAILYPRN PRN
02/02/25 06:13
Activity As Directed
Activity Level: As Tolerated
Vital Signs As Directed
Frequency: Per unit guidelines
Pulse Ox/spot Check [RESP] Routine
Quantity: 1
DX Deep Vein Thrombosis Video Routine
02/02/25 07:30
Sucralfate Suspension [Carafate Suspension] 1 gm PO ACHS
02/02/25 08:00
Cyanocobalamin [Vitamin B-12] 1,000 mcg PO DAILY
FOLic ACID [Folvite] 1 mg PO DAILY
Heparin 5,000 units SC Q8
Magnesium Oxide 500 mg PO BID
Thiamine HCl [Vitamin B1] 100 mg PO DAILY
02/02/25 10:00
Ampicillin/Sulbactam 3 G [Unasyn] 3 gm 0.9% Sodium Chloride 100 ml [Nss] 100 ml IV Q6H
02/02/25 21:41
Urinalysis Reflex To Culture Routine
Date Specimen was Collected: 02/02/25
Time Specimen was Collected: 21:30
Abnormal Lab Results
02/01/25
21:13
WBC 15.5 H 10^3/uL
(4.8-10.8)
RBC 4.07 L 10^6/uL
(4.20-5.40)
MCH 33.2 H pg
(27.0-31.0)
RDW 15.4 H %
(11.5-14.5)
Abs Immat Gran (auto) 0.1 H 10^3/uL
(0-0.05)
Absolute Neuts (auto) 11.6 H 10^3/uL
(1.4-6.5)
Absolute Monos (auto) 0.7 H 10^3/uL
(0.1-0.6)
Lymphocytes % 19.3 L %
(20.5-51.1)
Carbon Dioxide 14 L* mmol/L
(22-30)
BUN 22 H mg/dl
(7-17)
Creatinine 1.1 H mg/dL
(0.6-1.0)
Alkaline Phosphatase 159 H U/L
(38-126)
02/01/25 21:13
02/01/25 21:13
Vital Signs
Initial and Last Documented VS:
Initial Vital Signs
BP
144/122
02/01/25 20:48
Last Documented Vital Signs
Temp Pulse Resp BP Pulse Ox
98.1 F 84 20 166/109 96
02/04/25 15:21 02/04/25 15:21 02/04/25 15:21 02/04/25 15:21 02/04/25 15:21
MDM/Problems Addressed
MDM/Problems Addressed:
69-year-old female with history of reflux esophagitis, alcohol abuse, alcoholic liver disease, anxiety presenting to the emergency department for nausea, vomiting, chest and abdominal pain. Vital signs on arrival significant for tachycardia.
On exam, patient is in no acute distress, however very anxious in appearance. She is having active emesis in the ER. EKG obtained on arrival, nonischemic. On exam, generalized tenderness to the abdomen with lower suspicion for cardiac process,
more suspicious for abdominal process. On review of EMR, multiple admissions for dehydration, alcohol abuse, gastric reflux. Suspect possible esophagitis as etiology of symptoms. Pancreatitis is a consideration. History of cholecystectomy in the
past without suspicion for gallbladder pathology. Plan for laboratory analysis and CT abdominal imaging. Will treat patient with IV fluids, Zofran, morphine and reassess for improvement.
22:45 - Patient is still vomiting, will redose Zofran and administer pantoprazole. Pending CT imaging. Patient does have elevated WBC, possibly reactive from vomiting. Otherwise normal lipase and troponin. Likely plan for admission due to
intractable nausea and vomiting
*EKG
Interpreted by ED Provider?: Yes
EKG Intrepretation Date: 02/01/25
EKG Intrepretation Time: 23:03
Interpretation: abnormal
Comparison EKG: no changes (06/05/24)
Heart Rate: 116
Rate: tachycardiac
Rhythm: sinus
Wallback: normal axis
Interval: normal interval
QRS Pattern: normal QRS
Ischemia: no ischemia
*Critical Care Note
Total Time (30-74mins, 75-104mins- exclusive of procedures): Not Applicable
ED Attending Note
-
Portions of this chart may have been created with voice recognition software.� Occasional wrong word or��sound alike� substitutions may have occurred due to the inherent limitations of voice recognition software.
Discharge Plan
Departure
Patient Disposition: Admit
Date of Disposition: 02/02/25
Time of Disposition: 02:38
Presentation/result/management discussed w/ accepting MD/DO: Hospitalist
Condition: Fair
Discharge Problem:
Abdominal pain, Nausea & vomiting
Interventions
Interventions:
*Risk Screen - Suicide Last Done: 02/02/25 04:45
*General Assessment Last Done: 02/02/25 04:45
*Neglect/Abuse Screening Last Done: 02/02/25 04:45
*ED- Fall Risk Assessment Last Done: 02/01/25 23:22
*ED COVID-19 Vaccine History Last Done: 02/01/25 20:56
*Nursing Disposition Last Done: 02/02/25 17:52
ED- Cardiac Assessment Last Done: 02/02/25 08:20
Discharge Date and Time
Discharge Date/Time: 02/02/25 17:53
[2025-02-01 23:00] VITALS: BP 155/86
[2025-02-01] MEDS: PROTONIX IV 40 MG IV (23:01)
[2025-02-01] MEDS: REGLAN 5 MG IV (23:48)
[2025-02-01] MEDS: ATIVAN 1 MG IV (23:48)
[2025-02-02] VITALS (17 sets, daily range): BP systolic 107–169; BP diastolic 61–100; PULSE 100–108; O2SAT 96; BMI 23.4; BMI 23.7
[2025-02-02] MEDS: ATIVAN 1 MG IV (03:17)
--- NOTE | 2025-02-02 03:26 | HPS.HSE ---
Family Physician
-
Family Physician: Ishaan Ames
Chief Complaint
-
Abdominal pain
History of Present Illness
Patient is a 69-year-old female with past medical history significant for alcohol dependence and abuse, reflux disease, anxiety and anemia presenting to the emergency department with upper abdominal/chest pain nausea and vomiting.
Patient's began abruptly in the morning. She initially had an episode of watery diarrhea and started having nausea and then nonbloody emesis and then developed epigastric pain that appears to be radiating to the right chest. She had recently had 4
right shoulder injury status post surgery which seems to be exacerbating her pain. She has nonbilious nonbloody emesis. She has denied further diarrhea since the initial episode.. She is status post cholecystectomy. She denies shortness of
breath, cough fevers or chills. Patient reports drinking 2 shots of alcohol and bloody Ivette approximately daily.
In the emergency department she was afebrile, blood pressure was 160/80. Oxygen saturation was 99% on room air.
He had a white count of 15.5, hemoglobin and platelets were normal. Electrolytes were mostly stable with a bicarb of 14. BUN/creatinine well fairly stable with a creatinine of 1.1.
CTA scan of the abdomen pelvis shows diffuse colonic wall thickening compatible with colitis.
Medical History
Past Medical History
Past Medical History: Reports GERD and HTN
Additional Past Medical History:
ETOH dependence
Past Surgical History: Reports None
Social History
Alcohol: Chronic Alcoholic
Drug: None
Personal: Single
Living: With Roomate
Employment: Not Employed
Family History
Family History: Not pertinent
Allergies / Home Medications
Allergies reflects when Allergies were last updated in [employer].
Home Medications with original date entered in [employer]
Allergy/Medication List:
Allergies
Allergy/AdvReac Type Severity Reaction Status Date / Time
aspirin Allergy Unknown Verified 08/23/24 22:18
gabapentin Allergy Unknown Verified 05/15/24 22:18
NSAIDS (Non-Steroidal Allergy Unknown Verified 05/15/24 22:18
Anti-Inflamma
[id number] Reductase Allergy Swelling Verified 05/15/24 22:18
Inhibitor
Sulfa (Sulfonamide Allergy Unknown Verified 05/15/24 22:18
Antibiotics)
Home Medications
lorazepam 0.5 mg tablet 0.5 mg PO HSPRN PRN anxiety/sleep #7 tabs 03/31/24
cholestyramine (with sugar) 4 gram powder for susp in a packet 1 ea PO Q8H #60 ea 04/13/24
folic acid 1 mg tablet 1 mg PO DAILY #30 tabs 04/13/24
magnesium oxide 500 mg capsule 500 mg PO BID #60 caps 04/13/24
potassium chloride 20 mEq tablet,extended release 20 meq PO DAILY #30 tabs 04/13/24
sucralfate 100 mg/mL oral suspension 1 g (10 mL) PO ACHS #414 mL 04/13/24
cyanocobalamin (vitamin B-12) 1,000 mcg tablet 1,000 mcg PO DAILY 30 days #30 tabs 05/04/24
dicyclomine 20 mg tablet 20 mg PO TID Gastrointestinal issue 30 days #90 tabs 05/04/24
thiamine HCl (vitamin B1) 100 mg tablet 1 mg PO DAILY 05/18/24
acetaminophen 325 mg tablet 650 mg (2 x 325 mg) PO Q4HPRN PRN Mild Pain / Temp > 101 #0 tabs 05/23/24
pantoprazole 40 mg tablet,delayed release 40 mg PO BID #0 tabs 05/23/24
thiamine HCl (vitamin B1) 100 mg tablet 100 mg PO DAILY #30 tabs 05/23/24
Review of Systems
-
History Source: Patient
Constitutional: Reports No Symptoms
EENT: Reports No Symptoms
Respiratory: Reports No Symptoms
Cardiac: Reports No Symptoms
Abdomen/GI: Reports Abdominal Pain and Nausea
: Reports No Symptoms
Musculoskeletal: Reports No Symptoms
Skin: Reports No Symptoms
Neurological: Reports No Symptoms
Endocrine: Reports No Symptoms
Hematologic/Lymphatic: Reports No Symptoms
Psych: Reports No Symptoms
Physical Exam
Vital Signs
Vital Signs
Temp Pulse Resp BP Pulse Ox
97.5 F 100 16 162/80 99
02/01/25 21:00 02/02/25 02:45 02/02/25 02:45 02/02/25 02:01 02/02/25 02:30
Physical Exam
General: Well Developed, Well Nourished, No Apparent Distress and Comfortable
HEENT: NormoCephalic, Anicteric, Moist mucous membranes and Atraumatic
Respiratory: Clear
Cardiac: S1/S2 and Regular Rhythm
Breast: Deferred by me
GI: Soft, Non Tender, Non Distended and Normal Bowel Sounds
Rectal: Deferred by Provider
Musculoskeletal: No Clubbing, No Cyanosis and No Edema
Skin: Warm
Neuro: AO x 3 and Nonfocal/grossly intact
Hematologic/Lymphatic: No Lymphadenopathy
Psych: Calm
Laboratory Results
-
02/01/25 21:13
02/01/25 21:13
Laboratory Results
Total Bilirubin 0.7 mg/dl (0.2-1.3) 02/01/25 21:13
AST 30 U/L (14-36) 02/01/25 21:13
ALT 19 U/L (0-35) 02/01/25 21:13
Alkaline Phosphatase 159 U/L (38-126) H 02/01/25 21:13
Troponin I < 0.012 ng/ml 02/01/25 21:13
Lipase 75 U/L (23-300) 02/01/25 21:13
Data Reviewed
-
CT Scan: Report Reviewed by me
Lab Data: Labs Reviewed by me
Old Records: Reviewed
Impression/Plan
-
IMPRESSION:
69-year-old here with acute onset epigastric abdominal pain found to have elevated leukocytosis and CT scan of the abdomen pelvis consistent with acute colitis.
PLAN:
Colitis
- admit to med/surg
- no diarrhea, so no stool to obtain at this time, no recent abx use
- clear liquid diet, ADAT
- blood cultures if febrile
- IV ceftriaxone/flagyl for now
- IV fluids, pain control
- ppi iv
AG metabolic acidosis - AG 24. No h/o diabetes, normal glucose, Etoh ketoacidosis suspected
- check vbg, lactic acid and bHgb
- d5 LR for now
- continue thiamine
ETOH - no recent etoh use
- continue thiamine, folate b12
DVT PPX - heparin sq
Code status - full code
[2025-02-02] MEDS: UNASYN IV ×3 (04:37→20:17)
[2025-02-02 05:58] LABS: Lactic Acid 0.6 mmol/L (0.7-2.0)
[2025-02-02] MEDS: D5LR 1000 IV (08:24)
[2025-02-02] MEDS: MAGNESIUM OXIDE 500 MG PO ×2 (08:27→19:39)
[2025-02-02] MEDS: FOLVITE 1 MG PO (08:27)
[2025-02-02] MEDS: CARAFATE SUSPENSION 1 GM PO ×4 (08:27→22:07)
[2025-02-02] MEDS: VITAMIN B1 100 MG PO (08:27)
[2025-02-02] MEDS: HEPARIN 5000 UNITS SC ×2 (08:27→16:18)
[2025-02-02] MEDS: ROXICODONE 5 MG PO ×3 (08:35→18:15)
--- NOTE | 2025-02-02 08:50 | W.PN.HOSP.TC ---
Today's Communication/Plan
-
see A/P
Assessment / Plan
Assessment / Plan
69-year-old female with past medical history significant for alcohol abuse, reflux disease, anxiety, anemia, recent 4 right shoulder injury status post surgery; p/w upper abdominal/chest pain, nausea and vomiting.
Symptoms began abruptly in the morning. She initially had an episode of watery diarrhea, and developed nausea and nonbloody emesis, epigastric pain. She is status post cholecystectomy.
Patient reports drinking 2 shots of alcohol and bloody Ivette approximately daily.
CTA scan of the abdomen pelvis shows diffuse colonic wall thickening compatible with colitis.
A/P:
# GI symptoms (resolved) 2/[address] AP report
Check norovirus, C diff, stool Cx if able to collect
Started Unasyn in ED, cont for now
clear liquid diet, ADAT
IV fluids, pain control
ppi iv
# AG metabolic acidosis, possibly Etoh ketoacidosis
# ETOH - no recent etoh use
Alcohol level 104 on admission
would switch current D5 LR to D5 bicarb IVF
Follow bicarb level
[facility] protocol for alcohol withdrawal. Continue thiamine, folate b12
# R sided pleuritic chest pain
Check R rib XR
Check CT PE
# Chronic R shoulder pain
PT OT when able
DVT PPX - heparin sq
Code status - full code
Anticipated Discharge: > 48 hours
Subjective/Interval History
-
Date of Service: February 02, 2025
Objective Data
-
Labs:
Laboratory Results
02/01/25
21:13
WBC 15.5 H
Hgb 13.5
Hct 37.7
Plt Count 330
Sodium 145
Potassium 3.9
Chloride 105
Carbon Dioxide 14 L*
BUN 22 H
Creatinine 1.1 H
Glucose 89
Calcium 10.2
Total Bilirubin 0.7
AST 30
ALT 19
Alkaline Phosphatase 159 H
Vital Signs:
Vital Signs
Temp Pulse Resp BP Pulse Ox
36.9 C 100 16 162/80 98
02/02/25 07:34 02/02/25 02:45 02/02/25 02:45 02/02/25 02:01 02/02/25 08:20
Review of Systems
-
Respiratory: Reports Pleurisy (R sided chest pain with inspiration )
Abdomen/GI: Denies Abdominal Pain (resolved ), Nausea or Vomiting
Physical Exam
-
General: Well Developed, Well Nourished, No Apparent Distress, Comfortable, Conversant and Other (dishevelled)
HEENT: Normocephalic, Atraumatic, Nose Appears Normal and Ears Appear Normal; Negative Oxygen
Respiratory: Clear to Auscultation and Non Labored Respirations; Negative Accessory Resp Muscle Use
Cardiac: Regular Rhythm and S1/S2
GI: Soft, Nontender, Nondistended and Normal Bowel Sounds
Skin: Warm and Dry
Neuro: Awake and Alert
Psych: Calm and Intact Judgement/Insight
Data Reviewed
-
Labs: Labs Reviewed by me
[2025-02-02] MEDS: VITAMIN B-12 1000 MCG PO (10:20)
[2025-02-02] MEDS: SODIUM BICARBONATE 1150 MEQ IV (11:38)
--- NOTE | 2025-02-02 14:53 | CM ---
CM reviewed chart
Pt resides with a friend in a 1SH with 0STE
Pt is indep with ambulation without AD, drives+
Has a WW for use as needed
PCP- Ishaan Ames
Rx- Jenn
Discharge Disposition- anticipate home with VN
[2025-02-02] MEDS: DILAUDID 0.5 MG IV ×2 (16:18→20:18)
--- NOTE | 2025-02-02 17:45 | PTCARENOTE ---
02/02- Patient transferred and oriented to unit without issue. AAOX3 but scattered thinking, anxious and impulsive but redirectable and cooperative. MedSurg. Skin CDI. Patient requests water, pain medication and 'gut medicine' that she's due for.
--- NOTE | 2025-02-02 17:51 | EDRN ---
Patient taken to room 420-1 on stretcher by network technology instructor.
[2025-02-02] MEDS: ZOFRAN 4 MG IV (18:17)
[2025-02-02 21:54] LABS: Urine Albumin Negative (Neg - Trace); Urine Bilirubin Negative (Negative); Urine Character Clear (Clear); Urine Color Yellow; Urine Glucose Negative (Negative); Urine Ketone Negative (Negative); Urine Leukocyte 1+ (Negative); Urine Nitrite Negative (Negative); Urine Occult Blood Negative (Negative); Urine Urobilinogen Negative (Neg - 1+)
[2025-02-02 22:07] LABS: Urine Bacteria Few (Negative); Urine Red Blood Cell 0-2 /HPF (0-2)
[2025-02-02] MEDS: ATIVAN 0.5 MG PO (22:08)
[2025-02-03] MEDS: HEPARIN 5000 UNITS SC ×4 (00:18→23:55)
[2025-02-03] MEDS: DILAUDID 0.5 MG IV ×6 (00:19→21:20)
[2025-02-03] MEDS: UNASYN IV ×2 (01:09→08:12)
[2025-02-03] MEDS: SODIUM BICARBONATE 1150 MEQ IV (03:05)
[2025-02-03] MEDS: ZOFRAN 4 MG IV (03:06)
[2025-02-03] MEDS: ROXICODONE 5 MG PO ×2 (03:10→11:13)
[2025-02-03] MEDS: TYLENOL 650 MG PO ×2 (04:23→08:23)
[2025-02-03] MEDS: CARAFATE SUSPENSION 1 GM PO ×4 (06:30→21:16)
[2025-02-03 06:42] LABS: % Basophils 0.6 % (0-2); % Eosinophils 2.8 % (0-6); % Immature Granulocytes 0.6 % (0-0.5); % Lymphocytes 28.6 % (20.5-51.1); % Monocytes 9.4 % (1.7-9.3); Absolute Basophils 0.1 10^3/uL (0-0.2); Absolute Eosinophils 0.2 10^3/uL (0-0.7); Absolute Immature Granulocytes 0.1 10^3/uL (0-0.05); Absolute Lymphocytes 2.3 10^3/uL (1.2-3.4); Absolute Monocytes 0.8 10^3/uL (0.1-0.6); Absolute Neutrophils 4.7 10^3/uL (1.4-6.5); Hematocrit 33.6 % (37.0-47.0); Hemoglobin 11.8 g/dL (12.0-16.0); Mean Corp Hgb Conc. 35.1 g/dL (33.0-37.0); Mean Corpuscular Hgb 33.3 pg (27.0-31.0); Mean Corpuscular Volume 94.9 fL (81.0-99.0); Mean Platelet Volume 9.5 fL (7.4-10.4); Nucleated Red Blood Cells % 0.2 %; Platelet Count 231 10^3/uL (130-400); Red Blood Cell Count 3.54 10^6/uL (4.20-5.40); Red Cell Dist. Width 15.2 % (11.5-14.5); White Blood Cell Count 8.1 10^3/uL (4.8-10.8)
[2025-02-03 07:00] VITALS: BP 109/46
[2025-02-03 07:19] LABS: ALT (SGPT) 18 U/L (0-35); AST (SGOT) 32 U/L (14-36); Albumin 4.1 g/dl (3.5-5.0); Alkaline Phosphatase 128 U/L (38-126); Blood Urea Nitrogen 6 mg/dl (7-17); Calcium 8.8 mg/dl (8.4-10.2); Carbon Dioxide 37 mmol/L (22-30); Chloride 96 mmol/L (98-107); Estimated Creatinine Clearance 52 ml/min; Glucose 130 mg/dl (70-99); Magnesium 1.3 mg/dl (1.6-2.3); Potassium 3.6 mmol/L (3.5-5.1); Sodium 141 mmol/L (135-145); Total Bilirubin 1.2 mg/dl (0.2-1.3); Total Protein 6.5 g/dl (6.3-8.2); eGFR > 60.00
[2025-02-03] MEDS: VITAMIN B1 100 MG PO (08:08)
[2025-02-03] MEDS: VITAMIN B-12 1000 MCG PO (08:08)
[2025-02-03] MEDS: FOLVITE 1 MG PO (08:08)
[2025-02-03] MEDS: MAGNESIUM OXIDE 500 MG PO ×2 (08:08→20:41)
[2025-02-03] MEDS: MAGNESIUM SULFATE 50 IV (08:12)
[2025-02-03] MEDS: SODIUM BICARBONATE IV (09:19)
[2025-02-03 10:10] VITALS: BP 135/85; PULSE 101; O2SAT 98
--- NOTE | 2025-02-03 10:23 | W.PN.HOSP.TC ---
Today's Communication/Plan
-
see AP
Assessment / Plan
Assessment / Plan
69-year-old female with past medical history significant for alcohol abuse, reflux disease, anxiety, anemia, recent 4 right shoulder injury status post surgery; p/w upper abdominal/chest pain, nausea and vomiting.
Symptoms began abruptly in the morning. She initially had an episode of watery diarrhea, and developed nausea and nonbloody emesis, epigastric pain. She is status post cholecystectomy.
Patient reports drinking 2 shots of alcohol and bloody Ivette approximately daily.
CTA scan of the abdomen pelvis shows diffuse colonic wall thickening compatible with colitis.
A/P:
# GI symptoms (resolved) 2/[address] AP showed Mild acute uncomplicated pancolitis, likely of infectious/inflammatory etiology.
Noted�C. difficile antigen positive, toxin negative- considering CT showed colitis, could treat for C diff with PO vanc and stop further Unasyn
Norovirus negative
Advance diet to regular
DC further IV fluids
Cont pain control with PO oxycodone PRN and IV Dilaudid PRN
ppi iv
# AG metabolic acidosis, possibly Etoh ketoacidosis, resolved
# ETOH - no recent etoh use
Alcohol level 104 on admission
[facility] protocol for alcohol withdrawal. Continue thiamine, folate b12
DC further IVF
# R sided pleuritic chest pain, unclear cause, ?neuropathic pain
R rib XR No displaced rib fractures.
CT PE No evidence of pulmonary embolism. Probable mild diffuse esophagitis.
gabapentin listed as allergy, cont oxycodone/Dilaudid PRN for now
# Chronic R shoulder pain
PT OT recc HH
DVT PPX - heparin sq
Code status - full code
total time 51 min
Anticipated Discharge: 24 - 48 hours
Subjective/Interval History
-
Date of Service: February 03, 2025
Objective Data
-
Labs:
Laboratory Results
02/03/25
06:18
WBC 8.1
Hgb 11.8 L
Hct 33.6 L
Plt Count 231 D
Sodium 141
Potassium 3.6
Chloride 96 L
Carbon Dioxide 37 H
BUN 6 L
Creatinine 0.9
Glucose 130 H
Calcium 8.8
Total Bilirubin 1.2
AST 32
ALT 18
Alkaline Phosphatase 128 H
Vital Signs:
Vital Signs
Temp Pulse Resp BP Pulse Ox
36.8 C 90 20 109/46 97
02/03/25 07:00 02/03/25 07:00 02/03/25 07:00 02/03/25 07:00 02/03/25 07:00
I&O
02/02/25 02/03/25 02/04/25
06:59 06:59 06:59
Intake Total 2880 / 2880
Output Total 1200 / 1200
Balance 1680 / 1680
Review of Systems
-
Constitutional: Reports Other (R sided chest pain that radiate to the back )
Abdomen/GI: Denies Abdominal Pain (resolved ), Nausea or Vomiting
Physical Exam
-
General: Well Developed, Well Nourished, No Apparent Distress, Comfortable and Conversant
HEENT: Normocephalic, Atraumatic, Nose Appears Normal and Ears Appear Normal; Negative Oxygen
Respiratory: Clear to Auscultation and Non Labored Respirations; Negative Accessory Resp Muscle Use
Cardiac: Regular Rhythm and S1/S2
GI: Soft, Nontender, Nondistended and Normal Bowel Sounds
Skin: Warm and Dry; Negative Rash (No visible rash over R chest wall)
Neuro: Awake and Alert
Psych: Calm and Intact Judgement/Insight
Data Reviewed
-
Diagnostic Radiology: Report Reviewed by me
CT Scan: Report Reviewed by me
Labs: Labs Reviewed by me
[2025-02-03] MEDS: FIRVANQ 125 MG PO ×3 (11:09→23:56)
[2025-02-03] MEDS: PROTONIX IV 40 MG IV (11:11)
[2025-02-03] MEDS: NSS (PRESERVATIVE FREE) 10 ML IV (11:11)
--- NOTE | 2025-02-03 11:11 | CM ---
CM reviewed chart, patient seen bedside. CM discussed PT recommendation of VN, patient declining at this time. CM will continue to follow for all discharge planning needs.
Plan; home no needs, declining VN
[2025-02-03 15:00] VITALS: BP 132/83
[2025-02-03] MEDS: ATIVAN 0.5 MG PO (21:19)
[2025-02-03 22:47] VITALS: BP 169/96
[2025-02-04 00:32] VITALS: BP 157/90
[2025-02-04] MEDS: TYLENOL 650 MG PO ×4 (00:35→21:54)
[2025-02-04] MEDS: ROXICODONE 5 MG PO ×5 (00:36→21:53)
[2025-02-04] MEDS: DILAUDID 0.5 MG IV ×5 (03:22→23:35)
[2025-02-04 05:28] LABS: % Basophils 0.5 % (0-2); % Eosinophils 3.2 % (0-6); % Immature Granulocytes 0.5 % (0-0.5); % Lymphocytes 31.2 % (20.5-51.1); % Monocytes 9.2 % (1.7-9.3); % Neutrophils 55.4 % (42.2-75.2); Absolute Eosinophils 0.2 10^3/uL (0-0.7); Absolute Lymphocytes 2.3 10^3/uL (1.2-3.4); Absolute Monocytes 0.7 10^3/uL (0.1-0.6); Absolute Neutrophils 4.1 10^3/uL (1.4-6.5); Hematocrit 33.9 % (37.0-47.0); Hemoglobin 11.8 g/dL (12.0-16.0); Mean Corp Hgb Conc. 34.8 g/dL (33.0-37.0); Mean Corpuscular Hgb 33.6 pg (27.0-31.0); Mean Corpuscular Volume 96.6 fL (81.0-99.0); Mean Platelet Volume 9.7 fL (7.4-10.4); Nucleated Red Blood Cells % 0 %; Platelet Count 208 10^3/uL (130-400); Red Blood Cell Count 3.51 10^6/uL (4.20-5.40); Red Cell Dist. Width 15.2 % (11.5-14.5); White Blood Cell Count 7.4 10^3/uL (4.8-10.8)
[2025-02-04 05:53] LABS: ALT (SGPT) 17 U/L (0-35); AST (SGOT) 26 U/L (14-36); Albumin 3.6 g/dl (3.5-5.0); Alkaline Phosphatase 109 U/L (38-126); Blood Urea Nitrogen 7 mg/dl (7-17); Calcium 8.9 mg/dl (8.4-10.2); Chloride 93 mmol/L (98-107); Estimated Creatinine Clearance 52 ml/min; Glucose 127 mg/dl (70-99); Magnesium 1.8 mg/dl (1.6-2.3); Potassium 2.8 mmol/L (3.5-5.1); Sodium 141 mmol/L (135-145); Total Bilirubin 0.8 mg/dl (0.2-1.3); Total Protein 6.4 g/dl (6.3-8.2); eGFR > 60.00
[2025-02-04 06:05] LABS: Carbon Dioxide 41 mmol/L (22-30)
[2025-02-04] MEDS: FIRVANQ 125 MG PO ×4 (06:23→23:35)
[2025-02-04] MEDS: CARAFATE SUSPENSION 1 GM PO ×4 (06:24→21:51)
[2025-02-04 07:56] VITALS: BP 141/89
[2025-02-04] MEDS: KCL 40 MEQ PO (08:23)
[2025-02-04] MEDS: MAGNESIUM OXIDE 500 MG PO (08:23)
[2025-02-04] MEDS: FOLVITE 1 MG PO (08:23)
[2025-02-04] MEDS: VITAMIN B-12 1000 MCG PO (08:23)
[2025-02-04] MEDS: VITAMIN B1 100 MG PO (08:23)
[2025-02-04] MEDS: KCL 270 MEQ IV (08:23)
[2025-02-04] MEDS: PROTONIX IV 40 MG IV (08:24)
[2025-02-04] MEDS: HEPARIN 5000 UNITS SC (08:24)
[2025-02-04] MEDS: NSS (PRESERVATIVE FREE) 10 ML IV (08:24)
--- NOTE | 2025-02-04 11:30 | CM ---
CM reviewed chart, patient seen bedside, reports no needs to CM at this time. [facility] plan to [facility], [facility]. CM will continue to follow for all
discharge planning needs.
Plan; home no needs.
--- NOTE | 2025-02-04 12:35 | W.PN.HOSP.TC ---
Addendum entered and electronically signed by Myrtle Chávez MD 02/04/25 16:55:
# Sepsis, POA
Original Note:
Today's Communication/Plan
-
see A/P
Assessment / Plan
Assessment / Plan
69-year-old female with past medical history significant for alcohol abuse, reflux disease, anxiety, anemia, recent 4 right shoulder injury status post surgery; p/w upper abdominal/chest pain, nausea and vomiting.
Symptoms began abruptly in the morning. She initially had an episode of watery diarrhea, and developed nausea and nonbloody emesis, epigastric pain. She is status post cholecystectomy.
Patient reports drinking 2 shots of alcohol and bloody Ivette approximately daily.
CTA scan of the abdomen pelvis shows diffuse colonic wall thickening compatible with colitis.
A/P:
# GI symptoms (resolved) 2/[address] AP showed Mild acute uncomplicated pancolitis, likely of infectious/inflammatory etiology.
Noted�C. difficile antigen positive, toxin negative- considering CT showed colitis, could treat for C diff with PO vanc and stop further Unasyn
Monitor diarrhea
Norovirus negative
Advanced diet to regular
DC further IV fluids
Cont pain control with PO oxycodone PRN and IV Dilaudid PRN
ppi iv
# Hypokalemia
replete
# AG metabolic acidosis, possibly Etoh ketoacidosis, resolved
# ETOH - no recent etoh use
Alcohol level 104 on admission
[facility] [place] protocol for alcohol withdrawal. Continue thiamine, folate b12
DC further IVF
# R sided pleuritic chest pain, unclear cause, ?neuropathic pain
R rib XR No displaced rib fractures.
CT PE No evidence of pulmonary embolism. Probable mild diffuse esophagitis.
gabapentin listed as allergy, cont oxycodone/Dilaudid PRN for now
# Chronic R shoulder pain
PT OT recc HH
DVT PPX - heparin sq
Code status - full code
DW RN
Anticipated Discharge: 24 - 48 hours
Subjective/Interval History
-
Date of Service: February 04, 2025
Objective Data
-
Labs:
Laboratory Results
02/04/25
05:04
WBC 7.4
Hgb 11.8 L
Hct 33.9 L
Plt Count 208
Sodium 141
Potassium 2.8 L
Chloride 93 L
Carbon Dioxide 41 H
BUN 7
Creatinine 0.9
Glucose 127 H
Calcium 8.9
Total Bilirubin 0.8
AST 26
ALT 17
Alkaline Phosphatase 109
Vital Signs:
Vital Signs
Temp Pulse Resp BP Pulse Ox
36.9 C 90 18 141/89 97
02/04/25 07:56 02/04/25 07:56 02/04/25 07:56 02/04/25 07:56 02/04/25 07:56
I&O
02/03/25 02/04/25 02/05/25
06:59 06:59 06:59
Intake Total 2880 / 2880 1380 / 1380
Output Total 1200 / 1200
Balance 1680 / 1680 1380 / 1380
Review of Systems
-
Constitutional: Reports Other (R sided chest pain that radiate to the back )
Abdomen/GI: Reports Diarrhea; Denies Abdominal Pain (resolved ), Nausea or Vomiting
Physical Exam
-
General: Well Developed, Well Nourished, No Apparent Distress, Comfortable and Conversant
HEENT: Normocephalic, Atraumatic, Nose Appears Normal and Ears Appear Normal; Negative Oxygen
Respiratory: Clear to Auscultation and Non Labored Respirations; Negative Accessory Resp Muscle Use
Cardiac: Regular Rhythm and S1/S2
GI: Soft, Nontender, Nondistended and Normal Bowel Sounds
Skin: Warm and Dry; Negative Rash (No visible rash over R chest wall)
Neuro: Awake and Alert
Psych: Calm and Intact Judgement/Insight
Data Reviewed
-
Diagnostic Radiology: Report Reviewed by me
CT Scan: Report Reviewed by me
Labs: Labs Reviewed by me
--- NOTE | 2025-02-04 14:45 | PN.CDI ---
CDI
- -
CDI:
Physician Documentation Request
Admit Date: 02/02/25 03:45
Dear Doctor Saira,
Patient admitted with colitis.
02/04 PN, 'Colitis....CT AP showed Mild acute uncomplicated pancolitis, likely of infectious/inflammatory etiology.....
On admission, WBC 15.5, and HR> 90.
Patient receiving IV Unasyn.
Please clarify which of the following most accurately describes the status of the patient's infection:
Sepsis, POA
Colitis only
Other
Sepsis
- Systemic manifestations of infection, with 2 or more SIRS criteria which include:
- Fever >100.9 degrees F or hypothermia < 96.8 degrees F
- Leukocytosis - WBC > 12,000 or leukopenia - WBC < 4,000 or > 10% bands
- Tachycardia > 90 beats per minute
- Tachypnea - RR > 20 breaths per minute or PaCO2 , 32mmHg
Source: Merck Manual 2013
- Indicate the known or suspected organism
- Indicate the known or suspected underlying infection, such as colitis
Localized Infection Only, Without Systemic Illness
- indicate the site/source, such as colitis
Other
Use of terms such as suspected, likely, concern for, or probable (associated with a specific diagnosis that is being evaluated, monitored, or treated as if it exists) are acceptable and can be coded in the inpatient setting, when documented at the
time of discharge.
Thank you,
Shweta MARKHAM,RN,CCDS
CDI Specialist
Available via Marissa text
Please use your independent medical judgment in providing your response.
[2025-02-04 15:21] VITALS: BP 166/109
[2025-02-04] MEDS: LOVENOX 40 MG SC (17:20)
[2025-02-04] MEDS: ATIVAN 0.5 MG PO (21:53)
[2025-02-04] MEDS: ZOFRAN 4 MG IV (21:54)
[2025-02-04 22:32] VITALS: BP 162/93
[2025-02-05] MEDS: DILAUDID 0.5 MG IV ×4 (04:59→19:56)
[2025-02-05] MEDS: FIRVANQ 125 MG PO ×4 (04:59→23:11)
[2025-02-05] MEDS: ZOFRAN 4 MG IV ×3 (05:30→19:55)
[2025-02-05 06:05] LABS: % Basophils 0.6 % (0-2); % Eosinophils 3.2 % (0-6); % Immature Granulocytes 0.6 % (0-0.5); % Lymphocytes 29.5 % (20.5-51.1); % Monocytes 11.2 % (1.7-9.3); % Neutrophils 54.9 % (42.2-75.2); Absolute Eosinophils 0.2 10^3/uL (0-0.7); Absolute Lymphocytes 2.1 10^3/uL (1.2-3.4); Absolute Monocytes 0.8 10^3/uL (0.1-0.6); Absolute Neutrophils 3.8 10^3/uL (1.4-6.5); Hematocrit 35.4 % (37.0-47.0); Hemoglobin 11.9 g/dL (12.0-16.0); Mean Corp Hgb Conc. 33.6 g/dL (33.0-37.0); Mean Corpuscular Hgb 33.8 pg (27.0-31.0); Mean Corpuscular Volume 100.6 fL (81.0-99.0); Mean Platelet Volume 9.7 fL (7.4-10.4); Nucleated Red Blood Cells % 0 %; Platelet Count 213 10^3/uL (130-400); Red Blood Cell Count 3.52 10^6/uL (4.20-5.40); Red Cell Dist. Width 15.2 % (11.5-14.5)
[2025-02-05] MEDS: ROXICODONE 5 MG PO ×3 (06:27→17:47)
[2025-02-05] MEDS: TYLENOL 650 MG PO ×2 (06:27→17:47)
[2025-02-05] MEDS: CARAFATE SUSPENSION 1 GM PO ×4 (06:28→19:59)
[2025-02-05 06:36] LABS: Blood Urea Nitrogen 15 mg/dl (7-17); Calcium 9.4 mg/dl (8.4-10.2); Chloride 95 mmol/L (98-107); Estimated Creatinine Clearance 52 ml/min; Glucose 132 mg/dl (70-99); Magnesium 1.8 mg/dl (1.6-2.3); Sodium 139 mmol/L (135-145); eGFR > 60.00
[2025-02-05 06:48] LABS: Carbon Dioxide 39 mmol/L (22-30)
[2025-02-05 07:00] VITALS: BP 152/110
[2025-02-05] MEDS: FOLVITE 1 MG PO (08:27)
[2025-02-05] MEDS: VITAMIN B1 100 MG PO (08:27)
[2025-02-05] MEDS: PROTONIX IV 40 MG IV ×2 (08:27→19:55)
[2025-02-05] MEDS: ATIVAN 0.5 MG PO ×2 (08:27→22:40)
[2025-02-05] MEDS: VITAMIN B-12 1000 MCG PO (08:27)
[2025-02-05] MEDS: NSS (PRESERVATIVE FREE) 10 ML IV ×2 (08:28→19:55)
--- NOTE | 2025-02-05 14:19 | W.PN.HOSP.TC ---
Today's Communication/Plan
-
toradol IV now
consult GI
consideration for repeat CT A/P
Assessment / Plan
Assessment / Plan
pt is a 69 year old female
abdominal pain with diarrhea (per pt)--ongoing--C. diff antigen positive, toxin negative--CT scan with desai colitis--was on unasyn, stopped in favor of treating for C. diff with PO vanco---suspect should be on prophylactic PO vanco AND unasyn or
similar--unclear if desai colitis is truly C. diff with antigen positive only...--will consult GI--consider ID consult--tolerating diet--IVF stopped--pt using IV dilaudid and oxy at regular intervals despite them being PRN--try toradol
right shoulder pain--point tender to biceps insertion--will try IV toradol (might help abdominal pain too rather than continued narcotic use)--usually shoulder pain can also be diaphragm irritation but admission A/P CT scan without abscess or free
air....--consider ortho for possible injection IF no improvement with toradol
Hypokalemia--replete
AG metabolic acidosis, possibly sepsis or ETOH ketoacidosis, resolved--pt denies recent ETOH use alcohol level 104 on admission--cont MSAS, thiamine, folate
DVT Proph - heparin sq
Code status - full code
Anticipated Discharge: 24 - 48 hours
Subjective/Interval History
-
Date of Service: February 05, 2025
pt c/o right shoulder pain, right abdominal pain, diarrhea
Objective Data
-
Labs:
Laboratory Results
02/05/25
05:54
WBC 7.0
Hgb 11.9 L
Hct 35.4 L
Plt Count 213
Sodium 139
Potassium 4.0 D
Chloride 95 L
Carbon Dioxide 39 H
BUN 15
Creatinine 0.9
Glucose 132 H
Calcium 9.4
Vital Signs:
max temp for 24 hours
02/04/25
22:32
Temp 98.2 F
Vital Signs
Temp Pulse Resp BP Pulse Ox
97.7 F 104 21 152/110 98
02/05/25 07:00 02/05/25 07:00 02/05/25 07:00 02/05/25 07:00 02/05/25 07:00
I&O
02/04/25 02/05/25 02/06/25
06:59 06:59 06:59
Intake Total 1380 / 1380 1440 / 1440
Balance 1380 / 1380 1440 / 1440
Review of Systems
-
All other systems: Reviewed and negative
Abdomen/GI: Reports Abdominal Pain (right sided)
Musculoskeletal: Reports Joint Pain (right shoulder)
Physical Exam
-
General: Well Developed, Well Nourished and No Apparent Distress
HEENT: Normocephalic and Atraumatic
Respiratory: Clear to Auscultation; Negative Wheezes or Rhonchi
Cardiac: Regular Rhythm and S1/S2; Negative Murmur
GI: Soft, Tender (right sided upper and lower) and Distended; Negative Normal Bowel Sounds (decreased)
Musculoskeletal: No Clubbing, No Cyanosis, No Edema and Other (right shoulder with long scar (well healed from previous surgery)--point tenderness at biceps insertion point)
Neuro: Awake
[2025-02-05 15:15] VITALS: BP 139/85
[2025-02-05] MEDS: TORADOL 30 MG IV (15:27)
--- NOTE | 2025-02-05 16:02 | CON.GI ---
Addendum entered and electronically signed by Tashi Rosen MD 02/05/25 19:38:
I saw and examined the patient.
The PA's note was reviewed and I agree with the note.
Comment:
69 year-old female with multiple co-morbidities including GERD, HTN, alcohol abuse, colitis, moderated severe esophagitis lower third esophagus with no bleeding 03/15/24, prior GI bleed secondary to peptic ulcer, and IBS who p/w abdominal
pain/vomiting. GI consulted for diarrhea. This is chronic issue which previously have responded to cholestyramine. Agree with restarting cholestyramine. Will also need to stop drinking alcohol. Agree with starting solid diet.
Addendum entered and electronically signed by NIDHI Gay 02/05/25 17:03:
Will start with Questran BID, if no response then can increase.
Original Note:
Consultation
-
Date/Time Consultation Requested: 02/05/25 1600
Date/Time Consultation Performed: 02/05/25 1600
Requesting Provider: Dr. Segal
Performing Provider: Dr. Rosen/NIDHI Child
Reason for Consultation: diarrhea
Medical History
Chief Complaint / HPI
Chief Complaint: N/V/abd pain
History of Present Illness:
69-year-old female with a past medical history significant for GERD, hiatal hernia, hypertension, alcohol abuse, accidental Tylenol OD managed with NAC, colitis, moderated severe esophagitis lower third esophagus with no bleeding 03/15/24, admission
to ICU February 2024 concerning of intestinal ischemia given severe acidosis, admission with suspected C. difficile infection (antigen positive toxin negative-> treated early February 2024), prior GI bleed secondary to peptic ulcer, IBS, suspected gout,
anxiety, bilateral upper extremity fractures requiring ORIF of the right humerus, multiple hospitalizations in the past secondary to medication non compliance with patient refusal to go to [facility] facility as she used to sleep on a friend's
couch. Her last hospitalization in May 2024 for with humerus fracture required her to go to [facility] facility for ongoing physical therapy. This was her last hospitalization. In the past when we saw her she was on cholestyramine for
her chronic diarrhea, this would always help her symptoms. She would always have heartburn and reflux with history of esophagitis usually exacerbated by 'spicy bloody Ivette's'. She had her last colonoscopy in December 2023 with repeat recommended in 6
months. She currently presents to the hospital on 02/01/2025 with acute onset of upper abdominal/chest discomfort, nausea and vomiting. This was also associated with watery diarrhea. She is actively drinking alcohol again as well 'spicy bloody
Ivette's' on a daily basis. She presented with a blood alcohol level of 104 on admission. She was found to have a recurrent anion gap metabolic acidosis. Suspected to be from alcoholic ketoacidosis. His CT of the abdomen and pelvis without oral
contrast that showed colitis. She was started on Unasyn. She had a stool test that was antigen positive for C. difficile but toxin negative. This has been a chronic issue in the past that we have treated before in February 2024. Stool cultures
negative. Her colonoscopy from 01/20/2024 random colon biopsies showed no significant histopathologic abnormality. Negative for lymphocytic and collagenous colitis. Negative for acute colitis, granulomas and dysplasia. She did have multiple
tubular adenomas and repeat colonoscopy was recommended. That colonoscopy was also performed for a CT finding of mild to moderate diffuse wall thickening involving colon suggesting of colitis. Today the patient is on a regular diet. She had a
soft brown bowel movement. She has been on vancomycin 125 mg p.o. every 6 prophylactically since 02/03/2025. The patient states that she went to SNF/rehab after her surgery in May and believes that she was there till after Danis time.
She went back to living with her friend 'Keira who was in her 90s and Keira's son Jah' however Keira approximately 1 month ago, Trudy has been living on her couch for over 3 years. She has not been taking any of her routine
medications that are prescription since her discharge from SNF. These include her prescription medications including cholestyramine, PPI and Carafate. She did go back to drinking alcohol including vodka. She states that on Mother's Day she drank
a good amount of bloody Ivette's as well as hot peppers including drinking the juice from the jar of hot peppers. She states this started the acute onset of nausea, vomiting, abdominal pain and worsening of her loose stools. She tried taking
Pepto-Bismol without any relief. Thus bringing her here to the emergency room for further evaluation. The patient is eating solid food. This morning she states that she had 2% milk, a cheese omelette with whitten and had no difficulty eating this.
She had 1 bowel movement today. She continues on Carafate 1 g p.o. AC and at bedtime. She continues on pantoprazole 40 mg daily. Her main complaint at this time is pain in her ribs and upper shoulders and arms.
Past Medical History
Past Medical History: Other (GERD (LA grade C/D esophagitis on EGD in 2022, questionable history of peptic ulcer disease with prior GI bleed), Psychiatric (Anxiety, depression) and Other (IBS, suspected gout, history of C. difficile antigen
positive, chronic anemia))
Past Surgical History: Other (Appendectomy, Cholecystectomy and Gynecological (Hysterectomy, right upper extremity epicondylitis x 2))
Social History
Tobacco: Non-Smoker
Alcohol: Daily
Drug: None
Personal: Single
Living: With Roomate
Family History
Family History: Reviewed & Not Pertinent
Allergies / Home Medications
Allergy/AdvReac Type Severity Reaction Status Date / Time
aspirin Allergy Unknown Verified 05/15/24 22:18
gabapentin Allergy Unknown Verified 05/15/24 22:18
NSAIDS (Non-Steroidal Allergy Unknown Verified 05/15/24 22:18
Anti-Inflamma
Xxrxygb-[id number]-TgP Reductase Allergy Swelling Verified 05/15/24 22:18
Inhibitor
Sulfa (Sulfonamide Allergy Unknown Verified 05/15/24 22:18
Antibiotics)
�Medication �Instructions �Recorded
folic acid 1 mg tablet 1 mg PO DAILY #30 tabs 04/13/24
cyanocobalamin (vitamin B-12) 1,000 mcg PO DAILY 30 days #30 tabs 05/04/24
1,000 mcg tablet
pantoprazole 40 mg tablet,delayed 40 mg PO BID #0 tabs 05/23/24
release
acetaminophen 325 mg tablet 650 mg PO TID Pain 02/02/25
bismuth subsalicylate 262 mg 2 tab PO DAILYPRN PRN gerd 02/02/25
chewable tablet (Pepto-Bismol)
cranberry fruit 450 mg tablet 450 mg PO DAILY Supplement 02/02/25
(cranberry)
cyclobenzaprine 10 mg tablet 10 mg PO DAILYPRN PRN muscle spasms 02/02/25
duloxetine 20 mg capsule,delayed 20 mg PO DAILY Mental 02/02/25
release Health/Anxiety
lorazepam 0.5 mg tablet 0.5 mg PO HS Mental Health/Anxiety 02/02/25
therapeutic multivitamin 1 tab PO DAILY Supplement 02/02/25
Review of Systems
-
All other systems: A 12 pt ROS was Negative except as stated above in HPI
Vital Signs
Temp Pulse Resp BP Pulse Ox
97.4 F 94 19 139/85 98
02/05/25 15:15 02/05/25 15:15 02/05/25 15:15 02/05/25 15:15 02/05/25 15:15
Physical Exam
Exam
General: No Apparent Distress
HEENT: Anicteric
Respiratory: Clear
Cardiac: Regular Rhythm
GI: Soft, Non Distended, Normal Bowel Sounds and Tender (Mild epigastric tenderness)
Skin: Warm and Dry
Neuro: AO x 3
Psych: Calm
Results
WBC 7.0 10^3/uL (4.8-10.8) 02/05/25 05:54
Hgb 11.9 g/dL (12.0-16.0) L 02/05/25 05:54
Hct 35.4 % (37.0-47.0) L 02/05/25 05:54
MCV 100.6 fL (81.0-99.0) H 02/05/25 05:54
Plt Count 213 10^3/uL (130-400) 02/05/25 05:54
Absolute Neuts (auto) 3.8 10^3/uL (1.4-6.5) 02/05/25 05:54
Sodium 139 mmol/L (135-145) 02/05/25 05:54
Potassium 4.0 mmol/L (3.5-5.1) D 02/05/25 05:54
Chloride 95 mmol/L (98-107) L 02/05/25 05:54
Carbon Dioxide 39 mmol/L (22-30) H 02/05/25 05:54
BUN 15 mg/dl (7-17) 02/05/25 05:54
Creatinine 0.9 mg/dL (0.6-1.0) 02/05/25 05:54
Calcium 9.4 mg/dl (8.4-10.2) 02/05/25 05:54
Total Bilirubin 0.8 mg/dl (0.2-1.3) 02/04/25 05:04
AST 26 U/L (14-36) 02/04/25 05:04
ALT 17 U/L (0-35) 02/04/25 05:04
Alkaline Phosphatase 109 U/L (38-126) 02/04/25 05:04
Lipase 75 U/L (23-300) 02/01/25 21:13
Diagnostic Image Results:
Right Ribs XR:
IMPRESSION:
1. No displaced rib fractures.
2. Mild right midlung probable atelectasis..
CT Chest PE study:
IMPRESSION:
1. No evidence of pulmonary embolism.
2. Probable mild diffuse esophagitis.
3. Small hiatal hernia.
CT Abd/Pelvis with IV contrast:
1. Mild acute uncomplicated pancolitis, likely of infectious/inflammatory etiology.
2. Progressed common bile duct dilatation measuring up to 1.6 cm proximally, likely reservoir effect.
Prior GI Procedures:
EGD 03/15/24 Dr. Warner - Mildly severe reflux esophagitis with no bleeding.
- A small amount of food (residue) in the stomach.
- Normal examined duodenum.
- No specimens collected.
EGD 01/20/24 Dr Alaniz:
- No gross lesions in the entire esophagus.
- Z-line irregular, 35 cm from the incisors. Biopsied.
- Small hiatal hernia.
- Congestive gastropathy. Biopsied.
- Erythematous mucosa in the antrum. Biopsied.
- Normal examined duodenum.
EGD
06/11/23, Dr. Warner
�� � � � � � � � - LA Grade C reflux esophagitis with no bleeding.
�� � � � � � � � � � � - Normal stomach.
�� � � � � � � � � � � - Normal examined duodenum.
EGD
03/15/23, Dr. Rosen
� � � � � � � � - LA Grade D reflux esophagitis. Slight improvement
�� � � � � � � � � � � from previous exam.
�� � � � � � � � � � � - Medium-sized hiatal hernia.
�� � � � � � � � � � � - No gross lesions in the entire stomach.
�� � � � � � � � � � � - Normal duodenal bulb, first portion of the duodenum
�� � � � � � � � � � � and second portion of the duodenum.
EGD
12/17/22, Dr. Rosen� � � � �
� � � � � � � � - LA Grade D esophagitis. Circumferential superficial
�� � � � � � � � � � � ulcers in distal esophagus.
�� � � � � � � � � � � - Medium-sized hiatal hernia.
Colonoscopy 01/20/24: (ayo) - Preparation of the colon was poor.
- The examined portion of the ileum was normal.
- Two 3 to 14 mm polyps in the cecum, removed with a
cold snare and removed using injection-lift and a hot
snare. Resected and retrieved.
- One 7 mm polyp in the ascending colon, removed with
a hot snare. Resected and retrieved.
- One 7 mm polyp in the transverse colon, removed with
a hot snare. Resected and retrieved.
- Two 3 to 15 mm polyps in the distal transverse
colon, removed with a cold snare and removed using
injection-lift and a hot snare. Resected and retrieved.
- One 4 mm polyp in the descending colon, removed with
a cold snare. Resected and retrieved.
- Normal mucosa in the entire examined colon. Biopsied.
- Diverticulosis in the recto-sigmoid colon, in the
sigmoid colon and in the descending colon.
- Internal hemorrhoids. - Repeat colonoscopy in 6 months for surveillance and
poor prep.
Colonoscopy:� 5-10 years ago at [facility] per pt, unknown results
Assessment / Plan
-
69-year-old female with a past medical history significant for GERD, hiatal hernia, hypertension, alcohol abuse, accidental Tylenol OD managed with NAC, colitis, moderated severe esophagitis lower third esophagus with no bleeding 03/15/24, admission
to ICU February 2024 concerning of intestinal ischemia given severe acidosis, admission with suspected C. difficile infection (antigen positive toxin negative-> treated early February 2024), prior GI bleed secondary to peptic ulcer, IBS, suspected gout,
anxiety, bilateral upper extremity fractures requiring ORIF of the right humerus, multiple hospitalizations in the past secondary to medication non compliance with patient refusal to go to [facility] facility as she used to sleep on a friend's
couch. Her last hospitalization in May 2024 for with humerus fracture required her to go to [facility] for [facility] physical [facility]. This was her last hospitalization. In the past when we saw her she was on cholestyramine for
her chronic diarrhea, this would always help her symptoms. She would always have heartburn and reflux with history of esophagitis usually exacerbated by 'spicy bloody Ivette's'. She had her last colonoscopy in December 2023 with repeat recommended in 6
months. She currently presents to the hospital on 02/01/2025 with acute onset of upper abdominal/chest discomfort, nausea and vomiting. This was also associated with watery diarrhea. She is actively drinking alcohol again as well 'spicy bloody
Ivette's' on a daily basis. She presented with a blood alcohol level of 104 on admission. She was found to have a recurrent anion gap metabolic acidosis. Suspected to be from alcoholic ketoacidosis. His CT of the abdomen and pelvis without oral
contrast that showed colitis. She was started on Unasyn. She had a stool test that was antigen positive for C. difficile but toxin negative. This has been a chronic issue in the past that we have treated before in February 2024. Stool cultures
negative. Her colonoscopy from 01/20/2024 random colon biopsies showed no significant histopathologic abnormality. Negative for lymphocytic and collagenous colitis. Negative for acute colitis, granulomas and dysplasia. She did have multiple
tubular adenomas and repeat colonoscopy was recommended. That colonoscopy was also performed for a CT finding of mild to moderate diffuse wall thickening involving colon suggesting of colitis. Patient is tolerating a solid diet without any
difficulty. No increase in abdominal discomfort. She had 1 bowel movement today. She has been off of her routine medications for the past couple months. He was taken [id number] Pepto-Bismol for abdominal discomfort. She is in need for
repeat colonoscopy for polyps however at this time she is declining as she has an appointment on Saturday for housing that she has been waiting for and she states she cannot miss this.
Impression:
-Diarrhea-> chronic, in the past has responded to cholestyramine. colitis seen on CT however colitis seen on CT in 12/2023 and colonoscopy performed with negative random bx for colitis. Needs repeat secondary to colon polyps and poor prep.
-Nausea/Vomiting-> resolved
-History of alcohol abuse-> came in with positive ETOH level.
-History of prior GI bleed secondary to peptic ulcer, recent EGD 03/15/24 - Mildly severe reflux esophagitis with no bleeding. A small amount of food (residue) in the stomach. Normal examined duodenum.-> Continue Pantoprazole
-History of chronically dilated common bile duct, status postcholecystectomy, MRCP in August 2023.
-Hx colon polyps with need for repeat, declining at present time. Aware that without repeat could lead to further detection of adenomas or colon cancer. She states she will follow up.
Plan:
-Continue Pantoprazole 40 mg, increase to BID.
-Continue Carafate 1 gm AC/hs
-Questran every 8 hours, monitor for stool response.
-Can DC Vancomycin as do not feel this is secondary to CDiff. Had been treated for Ag pos/Toxin negative in the past with no response.
-Low fat/Low residue diet, small frequent meals.
-If with abd pain can use Bentyl 20 mg po TID
-Outpatient follow up for Colonoscopy unless will allow here. Had poor prep.
-Complete ETOH cessation
-Medication compliance, reinforced.
-Consider outpatient GES as she has food in stomach on prior EGD, however would not do this now given narcotics. Would also need to hold Bentyl for 3 days if using as outpatient.
-If needs Mag replacement please consider IV as Mag Ox will exacerbate diarrhea.
-Further recommendations to be forthcoming.
-
-
Thank you for consultation and allowing me to participate in the patient's care. Please call the chief engineer production GI physician during the after hours with any questions or concerns.
[2025-02-05 16:24] VITALS: PULSE 92; O2SAT 99
[2025-02-05] MEDS: LOVENOX 40 MG SC (17:47)
[2025-02-05] MEDS: QUESTRAN 4 GRAM PO (19:54)
[2025-02-05 22:38] VITALS: BP 136/90
[2025-02-06] MEDS: ROXICODONE 5 MG PO ×4 (04:18→20:46)
[2025-02-06] MEDS: TYLENOL 650 MG PO ×2 (04:20→17:10)
[2025-02-06] MEDS: FIRVANQ 125 MG PO ×3 (05:14→17:08)
[2025-02-06 07:00] VITALS: BP 163/107
--- NOTE | 2025-02-06 08:23 | W.PN.GI.CBS2 ---
Addendum entered and electronically signed by Tashi Rosen MD 02/06/25 10:54:
I saw and examined the patient.
The PA's note was reviewed and I agree with the note.
Comment:
Continue with PPI, carafate, and cholestyramine.
Original Note:
Today's Communication / Plan
-
Continue pantoprazole 40 mg p.o. twice daily
Continue Carafate 1 g 4 times daily
Continue Questran twice daily
Assessment / Plan
-
69-year-old female with a past medical history significant for GERD, hiatal hernia, hypertension, alcohol abuse, accidental Tylenol OD managed with NAC, colitis, moderated severe esophagitis lower third esophagus with no bleeding 03/15/24, admission
to ICU February 2024 concerning of intestinal ischemia given severe acidosis, admission with suspected C. difficile infection (antigen positive toxin negative-> treated early February 2024), prior GI bleed secondary to peptic ulcer, IBS, suspected gout,
anxiety, bilateral upper extremity fractures requiring ORIF of the right humerus, multiple hospitalizations in the past secondary to medication non compliance with patient refusal to go to longterm facility as she used to sleep on a friend's
couch. Her last hospitalization in May 2024 for with humerus fracture required her to go to longterm facility for ongoing physical therapy. This was her last hospitalization. In the past when we saw her she was on cholestyramine for
her chronic diarrhea, this would always help her symptoms. She would always have heartburn and reflux with history of esophagitis usually exacerbated by 'spicy bloody Ivette's'. She had her last colonoscopy in December 2023 with repeat recommended in 6
months. She currently presents to the hospital on 02/01/2025 with acute onset of upper abdominal/chest discomfort, nausea and vomiting. This was also associated with watery diarrhea. She is actively drinking alcohol again as well 'spicy bloody
Ivette's' on a daily basis. She presented with a blood alcohol level of 104 on admission. She was found to have a recurrent anion gap metabolic acidosis. Suspected to be from alcoholic ketoacidosis. His CT of the abdomen and pelvis without oral
contrast that showed colitis. She was started on Unasyn. She had a stool test that was antigen positive for C. difficile but toxin negative. This has been a chronic issue in the past that we have treated before in February 2024. Stool cultures
negative. Her colonoscopy from 01/20/2024 random colon biopsies showed no significant histopathologic abnormality. Negative for lymphocytic and collagenous colitis. Negative for acute colitis, granulomas and dysplasia. She did have multiple
tubular adenomas and repeat colonoscopy was recommended. That colonoscopy was also performed for a CT finding of mild to moderate diffuse wall thickening involving colon suggesting of colitis. Patient is tolerating a solid diet without any
difficulty. No increase in abdominal discomfort. She had 1 bowel movement today. She has been off of her routine medications for the past couple months. He was taken [id number] Pepto-Bismol for abdominal discomfort. She is in need for
repeat colonoscopy for polyps however at this time she is declining as she has an appointment on Saturday for housing that she has been waiting for and she states she cannot miss this.
Impression:
-Diarrhea-> chronic, in the past has responded to cholestyramine. colitis seen on CT however colitis seen on CT in 12/2023 and colonoscopy performed with negative random bx for colitis. Needs repeat secondary to colon polyps and poor prep.
-Nausea/Vomiting-> resolved
-History of alcohol abuse-> came in with positive ETOH level.
-History of prior GI bleed secondary to peptic ulcer, recent EGD 03/15/24 - Mildly severe reflux esophagitis with no bleeding. A small amount of food (residue) in the stomach. Normal examined duodenum.-> Continue Pantoprazole
-History of chronically dilated common bile duct, status postcholecystectomy, MRCP in August 2023.
-Hx colon polyps with need for repeat, declining at present time. Aware that without repeat could lead to further detection of adenomas or colon cancer. She states she will follow up.
Plan:
-Continue Pantoprazole 40 mg, increase to BID.
-Continue Carafate 1 gm AC/hs
-Questran twice daily. Make sure to space out from other chronic medications. Can go up to 4 times a day if needed however should be okay with twice daily.
-Can DC Vancomycin as do not feel this is secondary to CDiff. Had been treated for Ag pos/Toxin negative in the past with no response.
-Low fat/Low residue diet, small frequent meals.
-If with abd pain can use Bentyl 20 mg po TID
-Outpatient follow up for Colonoscopy unless will allow here. Had poor prep.
-Complete ETOH cessation.
-Medication compliance, reinforced.
-Consider outpatient GES as she has food in stomach on prior EGD, however would not do this now given narcotics. Would also need to hold Bentyl for 3 days if using as outpatient.
-If needs Mag replacement please consider IV as Mag Ox will exacerbate diarrhea.
Subjective
Subjective
Date of Service: February 06, 2025
Patient with some improvement of loose stools after her 1 dose of cholestyramine. She states that these are 'thicker' and now having 'soft plops'. She is also having some improvement in her abdominal burning. Increased her pantoprazole to twice
daily. She is also going to continue her Carafate. Patient is tolerating solid diet without any difficulty. Discussed again complete cessation of alcohol as well as decrease in her spicy food intake. As well as medication adherence going forward.
Objective
Data Reviewed
Laboratory Data:
Laboratory Results
Magnesium 1.8 mg/dl (1.6-2.3) 02/05/25 05:54
Total Bilirubin 0.8 mg/dl (0.2-1.3) 02/04/25 05:04
AST 26 U/L (14-36) 02/04/25 05:04
ALT 17 U/L (0-35) 02/04/25 05:04
Alkaline Phosphatase 109 U/L (38-126) 02/04/25 05:04
Lipase 75 U/L (23-300) 02/01/25 21:13
Vital Signs and I&O:
Vital Signs
Temp Pulse Resp BP Pulse Ox
97.7 F 93 20 163/107 96
02/06/25 07:00 02/06/25 07:00 02/06/25 07:00 02/06/25 07:00 02/06/25 07:00
I&O
02/05/25 02/06/25 02/07/25
06:59 06:59 06:59
Intake Total 1440 / 1440 960 / 960
Balance 1440 / 1440 960 / 960
Physical Exam
Physical Exam
HEENT: Anicteric
Cardiology: Normal Sinus Rhythm
Pulmonary: Clear
GI: Soft, Non Distended, Tender (Mild epigastric tenderness) and Normal Bowel Sounds
Neuro: Non Focal
[2025-02-06] MEDS: VITAMIN B-12 1000 MCG PO (09:18)
[2025-02-06] MEDS: VITAMIN B1 100 MG PO (09:18)
[2025-02-06] MEDS: CARAFATE SUSPENSION 1 GM PO ×4 (09:18→20:45)
[2025-02-06] MEDS: PROTONIX IV 40 MG IV (09:18)
[2025-02-06] MEDS: NSS (PRESERVATIVE FREE) 10 ML IV (09:18)
[2025-02-06] MEDS: FOLVITE 1 MG PO (09:18)
[2025-02-06] MEDS: DILAUDID 0.5 MG IV (09:19)
[2025-02-06 11:26] LABS: ALT (SGPT) 18 U/L (0-35); AST (SGOT) 28 U/L (14-36); Albumin 4.1 g/dl (3.5-5.0); Alkaline Phosphatase 80 U/L (38-126); Blood Urea Nitrogen 26 mg/dl (7-17); Calcium 9.8 mg/dl (8.4-10.2); Carbon Dioxide 26 mmol/L (22-30); Chloride 103 mmol/L (98-107); Estimated Creatinine Clearance 46 ml/min; Glucose 152 mg/dl (70-99); Magnesium 1.7 mg/dl (1.6-2.3); Potassium 4.4 mmol/L (3.5-5.1); Sodium 137 mmol/L (135-145); Total Bilirubin 0.6 mg/dl (0.2-1.3); Total Protein 6.6 g/dl (6.3-8.2); eGFR > 60.00
[2025-02-06 12:44] LABS: Hematocrit 40.3 % (37.0-47.0); Hemoglobin 13.9 g/dL (12.0-16.0); Mean Corp Hgb Conc. 34.5 g/dL (33.0-37.0); Mean Corpuscular Hgb 33.7 pg (27.0-31.0); Mean Corpuscular Volume 97.6 fL (81.0-99.0); Mean Platelet Volume 10.3 fL (7.4-10.4); Platelet Count 205 10^3/uL (130-400); Red Blood Cell Count 4.13 10^6/uL (4.20-5.40); Red Cell Dist. Width 15.3 % (11.5-14.5); White Blood Cell Count 11.1 10^3/uL (4.8-10.8)
--- NOTE | 2025-02-06 12:47 | W.PN.HOSP.TC ---
Today's Communication/Plan
-
bentyl
stop IV pain meds
lidoderm patch
norvasc
Assessment / Plan
Assessment / Plan
pt is a 69 year old female
abdominal pain with diarrhea (per pt)--ongoing--C. diff antigen positive, toxin negative--CT scan with desai colitis--was on unasyn, stopped in favor of treating for C. diff with PO vanco--unclear if desai colitis is truly C. diff with antigen positive
only...--apprec GI--tolerating diet--IVF stopped--pt using IV dilaudid and oxy at regular intervals despite them being PRN--all IV pain medications stopped--explicitly expressed to patient that she cannot take alcohol, nor spicy foods/drinks as
these are 'poison' to her and that she should be adherent to all of her medications and not stop anything--Bentyl added--continue Oxy
right shoulder pain--point tender to biceps insertion--will need outpatient follow-up with orthopedics--stated Toradol did not help--will add Lidoderm patch
Hypokalemia--replete
essential HTN--?pain, anxiety--will add low dose norvasc
AG metabolic acidosis, possibly sepsis or ETOH ketoacidosis, resolved--pt denies recent ETOH use alcohol level 104 on admission--cont MSAS, thiamine, folate--no signs of ETOH withdrawal
DVT Proph - heparin sq
Code status - full code
Anticipated Discharge: Within 24 hours
Subjective/Interval History
-
Date of Service: February 06, 2025
pt still c/o abdominal pain, chest pain, shoulder pain--yet has no trouble with diet
Objective Data
-
Labs:
Laboratory Results
02/06/25 02/06/25 02/06/25
10:16 11:47 12:27
WBC Cancelled Cancelled 11.1 H
Hgb Cancelled Cancelled 13.9
Hct Cancelled Cancelled 40.3
Plt Count Cancelled Cancelled 205
Sodium 137
Potassium 4.4
Chloride 103
Carbon Dioxide 26
BUN 26 H
Creatinine 1.0
Glucose 152 H
Calcium 9.8
Total Bilirubin 0.6
AST 28
ALT 18
Alkaline Phosphatase 80
Vital Signs:
max temp for 24 hours
02/05/25
22:38
Temp 98.3 F
Vital Signs
Temp Pulse Resp BP Pulse Ox
97.7 F 93 20 163/107 96
02/06/25 07:00 02/06/25 07:00 02/06/25 07:00 02/06/25 07:00 02/06/25 07:00
I&O
02/05/25 02/06/25 02/07/25
06:59 06:59 06:59
Intake Total 1440 / 1440 960 / 960
Balance 1440 / 1440 960 / 960
Review of Systems
-
All other systems: Reviewed and negative
Cardiac: Reports Chest Pain
Abdomen/GI: Reports Abdominal Pain
Musculoskeletal: Reports Other (right shoulder pain)
Physical Exam
-
General: Well Developed, Well Nourished and No Apparent Distress
Respiratory: Clear to Auscultation; Negative Wheezes or Rhonchi
Cardiac: Regular Rhythm and S1/S2; Negative Murmur
GI: Soft, Normal Bowel Sounds, Tender and Distended
Musculoskeletal: No Clubbing, No Cyanosis and No Edema
Neuro: Awake
Psych: Calm
[2025-02-06] MEDS: LIDOCAINE 4% PATCH 1 PATCH TOPICAL (13:21)
[2025-02-06] MEDS: NORVASC 2.5 MG PO ×2 (13:21→20:45)
[2025-02-06] MEDS: QUESTRAN 4 GRAM PO ×2 (14:17→20:45)
[2025-02-06 15:00] VITALS: BP 165/103
[2025-02-06] MEDS: BENTYL 20 MG PO ×2 (17:08→20:45)
[2025-02-06] MEDS: LOVENOX 40 MG SC (17:09)
[2025-02-06] MEDS: PROTONIX 40 MG PO (20:46)
[2025-02-06] MEDS: ATIVAN 0.5 MG PO (20:57)
[2025-02-06 23:00] VITALS: BP 129/59
[2025-02-07] MEDS: FIRVANQ 125 MG PO ×3 (00:17→11:40)
[2025-02-07] MEDS: ROXICODONE 5 MG PO ×2 (02:15→09:35)
[2025-02-07] MEDS: TYLENOL 650 MG PO ×2 (02:17→09:42)
[2025-02-07 07:19] VITALS: BP 150/82
[2025-02-07] MEDS: VITAMIN B-12 1000 MCG PO (09:35)
[2025-02-07] MEDS: NORVASC 2.5 MG PO (09:35)
[2025-02-07] MEDS: CARAFATE SUSPENSION 1 GM PO ×2 (09:36→11:40)
[2025-02-07] MEDS: VITAMIN B1 100 MG PO (09:36)
[2025-02-07] MEDS: PROTONIX 40 MG PO (09:36)
[2025-02-07] MEDS: FOLVITE 1 MG PO (09:36)
[2025-02-07] MEDS: BENTYL 20 MG PO (09:36)
[2025-02-07] MEDS: LIDOCAINE 4% PATCH 1 PATCH TOPICAL (09:37)
--- NOTE | 2025-02-07 10:05 | W.PN.HOSP.TC ---
Today's Communication/Plan
-
d/c
Assessment / Plan
Assessment / Plan
pt is a 69 year old female
abdominal pain with diarrhea (per pt)--ongoing--C. diff antigen positive, toxin negative--CT scan with desai colitis--was on unasyn, stopped in favor of treating for C. diff with PO vanco--unclear if desai colitis is truly C. diff with antigen positive
only...--apprec GI--tolerating diet--IVF stopped--pt using IV dilaudid and oxy at regular intervals despite them being PRN--all IV pain medications stopped--explicitly expressed to patient that she cannot take alcohol, nor spicy foods/drinks as
these are 'poison' to her and that she should be adherent to all of her medications and not stop anything--Bentyl added--continue Oxy
right shoulder pain--point tender to biceps insertion--will need outpatient follow-up with orthopedics--stated Toradol did not help--will add Lidoderm patch
Hypokalemia--replete
essential HTN--?pain, anxiety--will add low dose norvasc
AG metabolic acidosis, possibly sepsis or ETOH ketoacidosis, resolved--pt denies recent ETOH use alcohol level 104 on admission--cont MSAS, thiamine, folate--no signs of ETOH withdrawal
DVT Proph - heparin sq
Code status - full code
Anticipated Discharge: Today
Subjective/Interval History
-
Date of Service: February 07, 2025
pt continues to c/o of belly and shoulder pain--wants pain meds
Objective Data
-
Vital Signs:
max temp for 24 hours
02/06/25
23:00
Temp 98.5 F
Vital Signs
Temp Pulse Resp BP Pulse Ox
98.2 F 80 18 150/82 99
02/07/25 07:19 02/07/25 07:19 02/07/25 07:19 02/07/25 07:19 02/07/25 07:19
I&O
02/06/25 02/07/25 02/08/25
06:59 06:59 06:59
Intake Total 960 / 960 960 / 960 480 / 480
Balance 960 / 960 960 / 960 480 / 480
Review of Systems
-
All other systems: Reviewed and negative
Abdomen/GI: Reports Abdominal Pain
Musculoskeletal: Reports Joint Pain (shoulder)
Physical Exam
-
General: Well Developed, Well Nourished and No Apparent Distress
HEENT: Normocephalic and Atraumatic
Respiratory: Clear to Auscultation; Negative Wheezes or Rhonchi
Cardiac: Regular Rhythm and S1/S2; Negative Murmur
GI: Soft, Nondistended, Normal Bowel Sounds and Tender
Musculoskeletal: No Clubbing, No Cyanosis and No Edema
[2025-02-07 10:46] VITALS: BP 143/80
[2025-02-07] MEDS: QUESTRAN 4 GRAM PO (10:57)
--- NOTE | 2025-02-07 11:47 | CM ---
Chart reviewed and plan is to home no needs
Plan; Home no needs.
--- NOTE | 2025-02-07 13:07 | W.DCSUMMARY ---
Discharge Summary
Discharge Data
Date of Admission: 02/02/25
Date of Discharge: 02/07/25
-
Pending Results: No
Hospital Course
Primary care physician : Ishaan Ames
Principal Discharge diagnosis : Abdominal pain with diarrhea, right shoulder pain
Chronic Discharge diagnosis : Essential hypertension, chronic GI issues which include esophagitis in 2022, gastroesophageal reflux disease, peptic ulcer disease, alcohol use
Hospital Course : Patient was a 69-year-old female with a history significant for alcohol dependence and abuse who came in complaining of upper abdominal and chest pain with nausea and vomiting. Patient stated her PA and began abruptly on the
morning of admission. She had an episode of watery diarrhea followed by nausea and nonbloody emesis. She then developed epigastric pain that radiated to the right chest. She recently underwent right shoulder surgery which seem to be exacerbating
the pain. She had nonbilious nonbloody emesis. Patient also admitted to drinking 2 shots of alcohol and a bloody Ivette daily along with ingesting spicy food. CAT scan done in the emergency room showed diffuse colonic wall thickening compatible
with colitis. Patient was admitted.
Problem #1: Abdominal pain with diarrhea. Patient was seen in consultation by GI. C. difficile antigen was positive and toxin negative. This was checked due to the diarrhea. Patient was initially started on IV Unasyn which was stopped in favor
of treating for C. difficile even though toxin was negative. She was continued on oral vancomycin. Patient was complaining of abdominal pain and was requiring IV Dilaudid and oral oxycodone on a regular basis despite them being ordered as as
needed. She was also given Bentyl after meals. Patient has responded to cholestyramine in the past but she was not taking this at this time. She has also been instructed to stop alcohol. She was also continued on her pantoprazole and Carafate
was started. Patient was instructed to follow a low-fat low residue diet and not have spicy foods. Curiously, patient was asking for pain medications at discharge. When prescribing a small amount of oxycodone for her, review of the PDMP shows
that she gets tramadol regularly. Patient omitted to us that she takes tramadol on a regular basis. In fact, the last prescription was filled 01/25/2025.
Problem #2: Right shoulder pain. Narcotic medications were not touching her pain. Small dose of Toradol was tried which also did not help. Lidoderm patch was provided again without any significant improvement. Patient has been instructed to
follow-up with her orthopedic doctor.
Problem #3: All other medical issues. These include Essential hypertension, chronic GI issues which include esophagitis in 2022, gastroesophageal reflux disease, peptic ulcer disease, alcohol use. These medical issues were stable during her
hospitalization. Medications were continued as able. She has been instructed to quit alcohol use.
Patient is tolerating her diet and is stable for discharge home at this time. If there are any questions regarding this dictation or her hospital stay, please hesitate to call. Our office number is [phone].
Time for discharge 40 minutes.
Important imaging findings :
ABDOMINAL/PELVIS CT SCAN IMPRESSION:
1. Mild acute uncomplicated pancolitis, likely of infectious/inflammatory etiology.
2. Progressed common bile duct dilatation measuring up to 1.6 cm proximally, likely reservoir effect.
CT CHEST IMPRESSION:
1. No evidence of pulmonary embolism.
2. Probable mild diffuse esophagitis.
3. Small hiatal hernia.
Discharge Plan
-
Patient Disposition: Home (Routine Discharge)
Discharge Diagnosis/Procedures: Abdominal pain with diarrhea, right shoulder pain, essential hypertension, anion gap metabolic acidosis
Condition: Good
Diet: Low Fat and Low Residue
Activity: As tolerated
Driving Restrictions: As prior to admission
Bathing Restrictions: None
Referrals:
Tashi Rosen MD [Active] - in two to three weeks
(or usual GI doctor
)
Ishaan Ames DO [Family Provider] - in less than 1 week
Prescriptions:
New
vancomycin 50 mg/mL Recon Soln
125 mg PO Q6 10 Days Qty: 100 0RF
dicyclomine 20 mg Tablet
20 mg PO TID Qty: 60 0RF
sucralfate 100 mg/mL Suspension
1 gm PO ACHS Qty: 0 0RF
amlodipine 2.5 mg Tablet
2.5 mg PO BID Qty: 60 0RF
thiamine mononitrate (vit B1) 100 mg Tablet
100 mg PO DAILY Qty: 0 0RF
cholestyramine (with sugar) 4 gram Powder In Packet
1 ea PO BID 30 Days Qty: 60 0RF
oxycodone 5 mg Tablet
5 mg PO Q4HPRN PRN (Reason: moderate pain) Qty: 10 0RF
Continued
folic acid 1 mg Tablet
1 mg PO DAILY Qty: 30 0RF
cyanocobalamin (vitamin B-12) 1,000 mcg Tablet
1,000 mcg PO DAILY 30 Days Qty: 30 2RF
pantoprazole 40 mg tablet,delayed release (DR/EC)
40 mg PO BID Qty: 0 0RF
lorazepam 0.5 mg Tablet
0.5 mg PO HS
acetaminophen 325 mg tablet
650 mg PO TID
cyclobenzaprine 10 mg Tablet
10 mg PO DAILYPRN PRN (Reason: muscle spasms)
therapeutic multivitamin Tablet
1 tab PO DAILY
duloxetine 20 mg Capsule,Delayed Release(Dr/Ec)
20 mg PO DAILY
cranberry 450 mg Tablet
450 mg PO DAILY
Discontinued
bismuth subsalicylate [Pepto-Bismol] 262 mg Tablet,Chewable
2 tab PO DAILYPRN PRN (Reason: gerd)
Discharge Orders:
Discharge Patient (As Directed); Ordered 02/07/25
Ordered By: Ivette Segal
Discharge Date and Time
Discharge Date/Time: 02/07/25 12:00
Print Language: NIGERIAN
== END 2025-02-07 12:00 | disposition home or self-care (01) | DRG 872 ==
LOC: 4 WEST ACU 03:45
PROVIDERS: Internal Medicine; ADMITTING PHYSICIAN Internal Medicine; ATTENDING PHYSICIAN Internal Medicine; CONSULT PHYSICIAN Internal Medicine Gastroenterology; EMERGENCY PHYSICIAN Student in an Organized Health Care Education/Training Program; FAMILY PHYSICIAN Family Medicine
DX: A41.9 Sepsis, unspecified organism (principal); E87.29 Other acidosis; J98.11 Atelectasis; A04.72 Enterocolitis due to Clostridium difficile, not specified as recurrent; K21.00 Gastro-esophageal reflux disease with esophagitis, without bleeding; F10.20 Alcohol dependence, uncomplicated; K70.9 Alcoholic liver disease, unspecified; K83.8 Other specified diseases of biliary tract; M25.511 Pain in right shoulder; R07.81 Pleurodynia; D64.9 Anemia, unspecified; F41.9 Anxiety disorder, unspecified; E87.6 Hypokalemia; Y90.5 Blood alcohol level of 100-119 mg/100 ml; I10 Essential (primary) hypertension; K44.9 Diaphragmatic hernia without obstruction or gangrene; G43.909 Migraine, unspecified, not intractable, without status migrainosus; Z90.49 Acquired absence of other specified parts of digestive tract; Z87.891 Personal history of nicotine dependence; Z90.710 Acquired absence of both cervix and uterus; Z88.6 Allergy status to analgesic agent; Z88.2 Allergy status to sulfonamides; Z88.8 Allergy status to other drugs, medicaments and biological substances; Z87.11 Personal history of peptic ulcer disease
CPT/HCPCS: 71101; 71275; 74177; 80048; 80053; 81003; 81015; 82077; 83605; 83690; 83735; 84484; 85025; 85027; 87045; 87046; 87077; 87086; 87324; 87427; 87449; 87798; 93005; 97110; 97116; 97163; 97167; 97530; 97535; Q9967

== ENCOUNTER 2025-02-10 12:37 | Emergency (ER) | payer MEDICARE, SELFPAY ==
[2025-02-10 12:40] VITALS: BMI 23.8
--- NOTE | 2025-02-10 13:07 | ED.GENMED ---
History of Present Illness
General
Chief Complaint: Abdominal Symptoms
Source: patient
Exam Limitations: altered mental status
Time Seen by Provider: 02/10/25 12:53
Nursing documentation reviewed up to this point in time: agreed with
History of Present Illness
History of Present Illness:
69-year-old female nausea vomiting diarrhea onset yesterday, she is a drinker none since Mother's Day, tells me she does not withdrawal, she also used Ativan was run out apparently, she has a bracelet ordered from [facility] also 1 from
[facility] she cannot tell me when she was at [facility] where the circumstances around her visit to [facility] she complains of abdominal pain which is a chronic issue for her
Past History
Past History
ED Past Medical History: Cancer (Skin Cancer face), GERD, HTN, Psychiatric (Anxiety), Other (GI bleeding, Hiatal hernia. Ulcers, anemia. Migraine headaches, Colitis) and Other (recent colitis November/December 2023, severe esophagitis, alcohol abuse,
benzodiazepine withdrawal)
ED Past Surgical History: Appendectomy, Cholecystectomy, Gynecological (hysterectomy,), Orthopedic and Other (Mohs skin surgery, RUE epicondylitis X 2)
Patient has exhibited threatening behavior?: No
PSI?: No
Social History
Tobacco: Former smoker
Alcohol: Binge drinker
Drug: None
Personal:
Living: alone
Employment: Retired
Family History
Family History: Other (Noncontributory)
Review of Systems
Review of Systems
All Other Systems: Not applicable
Constitutional: Denies fever or fatigue
Cardiac: Denies palpitations
ABD/GI: Reports abdominal pain, nausea, vomiting and diarrhea
: Reports no symptoms
Neurological: Reports dizzy and weakness
Phy Exam
Physical Exam
Physical Exam:
Physical Exam
General: 69-year-old female disheveled
Neck: Dry lips
Heart: s1/s2 regular rate and rhythm, no murmur. equal radial pulses.
Lungs: no acute respiratory distress. clear bilaterally
Abdomen: Soft mild diffuse tenderness
Neuro: alert and oriented. Tremulous oriented to person place and time
Skin: no rash
Psychiatric: well kept. interactive and cooperative
Extremities: no edema.
Course
Orders/Labs/Results
Orders:
Orders
02/10/25 12:42
Electrocardiogram (*1) Urgent
Reason for Study: Chest Pain
EKG- Treatment ONCE
Alcohol Urgent
Complete Blood Count/With Diff Urgent
Comprehensive Metabolic Panel Urgent
Troponin I Urgent
02/10/25 13:03
Add On- LAB Urgent
Tests Added?: alcohol
0.9% Sodium Chloride 1000 ml [Nss] 1,000 ml IV BOLUS
Lorazepam [Ativan] 1 mg IV NOW STA
02/10/25 13:04
Add On- LAB Urgent
Tests Added?: magnesium
MDM/Problems Addressed
Differential Diagnosis Includes:
Alcohol withdrawal, early DTs impending DTs viral syndrome cardiac event pancreatitis dehydration
MDM/Problems Addressed:
Nausea vomiting diarrhea
Chronic conditions affecting care:
Alcoholism
Acute Exacerbation and/or Progression of Chronic Illness:
Alcoholism
*Pulse Oximetry
Patient hypoxic: no
*EKG
Interpreted by ED Provider?: Yes
Interpretation: abnormal
Comparison EKG: no comparison EKG present
Heart Rate: 104
Rate: tachycardiac
Rhythm: sinus
Ischemia: non-specific ST changes
*Outbound Sales Professional Interpretation
Rate: tachycardiac
Interpretation: abnormal
Heart Rate: 104
Rhythm: sinus
*Critical Care Note
Total Time (30-74mins, 75-104mins- exclusive of procedures): Not Applicable
Update Note
Update Note:
Update discharge summary from Dr. Segal reviewed looks like she has some chronic abdominal issues chronic pain syndrome, PDMP noted, I did check an alcohol level today
ED Attending Note
-
Portions of this chart may have been created with voice recognition software.� Occasional wrong word or��sound alike� substitutions may have occurred due to the inherent limitations of voice recognition software.
Discharge Plan
Departure
Prescriptions:
No Action
folic acid 1 mg Tablet
1 mg PO DAILY Qty: 30 0RF
cyanocobalamin (vitamin B-12) 1,000 mcg Tablet
1,000 mcg PO DAILY 30 Days Qty: 30 2RF
pantoprazole 40 mg tablet,delayed release (DR/EC)
40 mg PO BID Qty: 0 0RF
lorazepam 0.5 mg Tablet
0.5 mg PO HS
acetaminophen 325 mg tablet
650 mg PO TID
cyclobenzaprine 10 mg Tablet
10 mg PO DAILYPRN PRN (Reason: muscle spasms)
therapeutic multivitamin Tablet
1 tab PO DAILY
duloxetine 20 mg Capsule,Delayed Release(Dr/Ec)
20 mg PO DAILY
cranberry 450 mg Tablet
450 mg PO DAILY
vancomycin 50 mg/mL Recon Soln
125 mg PO Q6 10 Days Qty: 100 0RF
dicyclomine 20 mg Tablet
20 mg PO TID Qty: 60 0RF
sucralfate 100 mg/mL Suspension
1 gm PO ACHS Qty: 0 0RF
amlodipine 2.5 mg Tablet
2.5 mg PO BID Qty: 60 0RF
thiamine mononitrate (vit B1) 100 mg Tablet
100 mg PO DAILY Qty: 0 0RF
cholestyramine (with sugar) 4 gram Powder In Packet
1 ea PO BID 30 Days Qty: 60 0RF
oxycodone 5 mg Tablet
5 mg PO Q4HPRN PRN (Reason: moderate pain) Qty: 10 0RF
Interventions
Interventions:
*Risk Screen - Suicide Last Done: 02/10/25 12:40
*General Assessment Last Done: 02/10/25 12:40
*Neglect/Abuse Screening Last Done: 02/10/25 12:40
*ED- Fall Risk Assessment Last Done: 02/10/25 12:40
[id number] Assessment Last Done: 02/10/25 13:14
Discharge Date and Time
Print Language: TRISTANIAN
[2025-02-10] MEDS: NSS 1000 IV (13:08)
[2025-02-10 13:10] VITALS: BP 132/78
[2025-02-10] MEDS: ATIVAN 1 MG IV (13:12)
[2025-02-10 13:24] LABS: % Basophils 0.5 % (0-2); % Eosinophils 0.1 % (0-6); % Immature Granulocytes 0.4 % (0-0.5); % Lymphocytes 13.4 % (20.5-51.1); % Monocytes 9.3 % (1.7-9.3); % Neutrophils 76.3 % (42.2-75.2); Absolute Basophils 0.1 10^3/uL (0-0.2); Absolute Immature Granulocytes 0.1 10^3/uL (0-0.05); Absolute Monocytes 1.4 10^3/uL (0.1-0.6); Absolute Neutrophils 11.1 10^3/uL (1.4-6.5); Hematocrit 33.8 % (37.0-47.0); Hemoglobin 11.8 g/dL (12.0-16.0); Mean Corp Hgb Conc. 34.9 g/dL (33.0-37.0); Mean Corpuscular Hgb 33.2 pg (27.0-31.0); Mean Corpuscular Volume 95.2 fL (81.0-99.0); Mean Platelet Volume 9.3 fL (7.4-10.4); Nucleated Red Blood Cells % 0 %; Platelet Count 324 10^3/uL (130-400); Red Blood Cell Count 3.55 10^6/uL (4.20-5.40); Red Cell Dist. Width 15.1 % (11.5-14.5); White Blood Cell Count 14.6 10^3/uL (4.8-10.8)
[2025-02-10 13:42] LABS: ALT (SGPT) 36 U/L (0-35); AST (SGOT) 43 U/L (14-36); Alkaline Phosphatase 141 U/L (38-126); Blood Urea Nitrogen 34 mg/dl (7-17); Calcium 9.9 mg/dl (8.4-10.2); Carbon Dioxide 19 mmol/L (22-30); Chloride 98 mmol/L (98-107); Estimated Creatinine Clearance 42 ml/min; Glucose 106 mg/dl (70-99); Lipase 77 U/L (23-300); Magnesium 1.5 mg/dl (1.6-2.3); Potassium 4.2 mmol/L (3.5-5.1); Sodium 137 mmol/L (135-145); Total Bilirubin 1.3 mg/dl (0.2-1.3); Total Protein 7.7 g/dl (6.3-8.2); eGFR 53.72
[2025-02-10 13:47] LABS: Alcohol None Detected
[2025-02-10 13:52] LABS: Troponin I < 0.012 ng/ml
== END 2025-02-10 15:36 | disposition home or self-care (01) ==
LOC: EMR 12:37
PROVIDERS: Emergency Medicine; EMERGENCY PHYSICIAN Emergency Medicine; FAMILY PHYSICIAN Family Medicine
DX: R11.2 Nausea with vomiting, unspecified (principal); R19.7 Diarrhea, unspecified; R10.9 Unspecified abdominal pain; F10.20 Alcohol dependence, uncomplicated; F41.9 Anxiety disorder, unspecified; Z87.891 Personal history of nicotine dependence; Z90.49 Acquired absence of other specified parts of digestive tract; Z85.828 Personal history of other malignant neoplasm of skin; I10 Essential (primary) hypertension
CPT/HCPCS: 99284; 96374; 80053; 82077; 83690; 83735; 84484; 85025; 93005

== ENCOUNTER 2025-02-25 11:09 | Emergency (ER) | payer MEDICARE, SELFPAY ==
[2025-02-25] VITALS (10 sets, daily range): BP systolic 140–161; BP diastolic 64–100; BMI 23.8
[2025-02-25 11:29] LABS: % Basophils 0.6 % (0-2); % Eosinophils 0.3 % (0-6); % Immature Granulocytes 0.7 % (0-0.5); % Lymphocytes 12.2 % (20.5-51.1); % Monocytes 5.2 % (1.7-9.3); Absolute Basophils 0.1 10^3/uL (0-0.2); Absolute Immature Granulocytes 0.1 10^3/uL (0-0.05); Absolute Lymphocytes 1.5 10^3/uL (1.2-3.4); Absolute Monocytes 0.6 10^3/uL (0.1-0.6); Absolute Neutrophils 9.9 10^3/uL (1.4-6.5); Hematocrit 34.1 % (37.0-47.0); Mean Corp Hgb Conc. 35.2 g/dL (33.0-37.0); Mean Corpuscular Hgb 33.8 pg (27.0-31.0); Mean Corpuscular Volume 96.1 fL (81.0-99.0); Mean Platelet Volume 9.4 fL (7.4-10.4); Nucleated Red Blood Cells % 0 %; Platelet Count 265 10^3/uL (130-400); Red Blood Cell Count 3.55 10^6/uL (4.20-5.40); Red Cell Dist. Width 15.6 % (11.5-14.5); White Blood Cell Count 12.2 10^3/uL (4.8-10.8)
[2025-02-25 11:49] LABS: ALT (SGPT) 29 U/L (0-35); AST (SGOT) 44 U/L (14-36); Albumin 5.1 g/dl (3.5-5.0); Alkaline Phosphatase 140 U/L (38-126); Blood Urea Nitrogen 21 mg/dl (7-17); Calcium 9.8 mg/dl (8.4-10.2); Carbon Dioxide 21 mmol/L (22-30); Chloride 97 mmol/L (98-107); Estimated Creatinine Clearance 52 ml/min; Glucose 112 mg/dl (70-99); Potassium 3.9 mmol/L (3.5-5.1); Sodium 136 mmol/L (135-145); Total Bilirubin 1.4 mg/dl (0.2-1.3); Total Protein 7.9 g/dl (6.3-8.2); eGFR > 60.00
[2025-02-25] MEDS: DILAUDID 0.5 MG IV (12:42)
[2025-02-25] MEDS: ZOFRAN 4 MG IV ×2 (12:42→16:18)
--- NOTE | 2025-02-25 12:43 | ED.GENMED ---
History of Present Illness
<Zach Harper PA-C - Last Filed: 02/25/25 12:47>
General
Chief Complaint: Abdominal Symptoms
Source: patient
Exam Limitations: none
Time Seen by Provider: 02/25/25 12:11
History of Present Illness
History of Present Illness:
69-year-old female presents complaining of abrupt onset of right sided abdominal discomfort. She notes it hurts to breathe. She has been coughing. She denies a fever. She has history of similar symptoms in the past. She has acute on chronic
pain issues. She has alcohol use disorder. No recent travel or surgery. No leg swelling or calf pain.
Past History
<Zach Harper PA-C - Last Filed: 02/25/25 12:47>
Past History
ED Past Medical History: Cancer (Skin Cancer face), GERD, HTN, Psychiatric (Anxiety), Other (GI bleeding, Hiatal hernia. Ulcers, anemia. Migraine headaches, Colitis) and Other (recent colitis November/December 2023, severe esophagitis, alcohol abuse,
benzodiazepine withdrawal)
ED Past Surgical History: Appendectomy, Cholecystectomy, Gynecological (hysterectomy,), Orthopedic and Other (Mohs skin surgery, RUE epicondylitis X 2)
Patient has exhibited threatening behavior?: No
PSI?: No
Social History
Tobacco: Former smoker
Alcohol: Binge drinker
Drug: None
Personal:
Living: alone
Employment: Retired
Family History
Family History: Other (Noncontributory)
Phy Exam
<Zach Harper PA-C - Last Filed: 02/25/25 12:47>
Physical Exam
Physical Exam:
General: Well-appearing but anxious female no acute respiratory distress
HEENT: Normocephalic atraumatic
Heart: Regular rate and rhythm no murmurs
Lungs: Clear no wheeze
Abdomen is soft tender to the right upper quadrant and right inferior chest wall
Course
<Zach Harper PA-C - Last Filed: 02/25/25 12:47>
Orders/Labs/Results
Orders:
Orders
02/25/25 11:22
EKG [Electrocardiogram (*1)] Urgent
Reason for Study: Abdominal Pain
EKG- Treatment ONCE
02/25/25 11:23
Alcohol Urgent
Complete Blood Count/With Diff Urgent
Comprehensive Metabolic Panel Urgent
Lipase Urgent
Comment: ADD
02/25/25 12:20
Ondansetron Injectable [Zofran] 4 mg IV NOW STA
CR Chest - 2 Views Urgent
Comment:
Reason For Exam: chest pain
02/25/25 12:21
HYDROmorphone [Dilaudid] 0.5 mg IV NOW STA
02/25/25 12:40
Add On- LAB Stat
Tests Added?: lipase, alcohol
02/25/25 12:58
D-Dimer Urgent
02/25/25 14:03
CT Abd/pelvis W Iv Cont Urgent
Comment:
Reason For Exam: right sided abdominal pain
02/25/25 16:02
Ondansetron Injectable [Zofran] 4 mg IV NOW STA
Tramadol HCl [Ultram] 50 mg PO NOW STA
Abnormal Lab Results
02/25/25 02/25/25
11:23 12:58
WBC 12.2 H 10^3/uL
(4.8-10.8)
RBC 3.55 L 10^6/uL
(4.20-5.40)
Hct 34.1 L %
(37.0-47.0)
MCH 33.8 H pg
(27.0-31.0)
RDW 15.6 H %
(11.5-14.5)
Abs Immat Gran (auto) 0.1 H 10^3/uL
(0-0.05)
Absolute Neuts (auto) 9.9 H 10^3/uL
(1.4-6.5)
Immature Gran % 0.7 H %
(0-0.5)
Neutrophils % 81.0 H %
(42.2-75.2)
Lymphocytes % 12.2 L %
(20.5-51.1)
D-Dimer 0.71 H ug/mlFEU
(0.00-0.50)
Chloride 97 L mmol/L
(98-107)
Carbon Dioxide 21 L mmol/L
(22-30)
BUN 21 H mg/dl
(7-17)
Glucose 112 H mg/dl
(70-99)
Total Bilirubin 1.4 H mg/dl
(0.2-1.3)
AST 44 H U/L
(14-36)
Alkaline Phosphatase 140 H U/L
(38-126)
Albumin 5.1 H g/dl
(3.5-5.0)
02/25/25 11:23
02/25/25 11:23
Vital Signs
Initial and Last Documented VS:
Initial Vital Signs
BP Pulse Ox
158/64 100
02/25/25 11:15 02/25/25 11:15
Last Documented Vital Signs
Pulse Resp BP Pulse Ox
97 20 146/82 89
02/25/25 13:30 02/25/25 13:30 02/25/25 13:17 02/25/25 13:30
Meghalt;Lisa Parra PA-C - Last Filed: 02/25/25 16:15>
Orders/Labs/Results
Orders:
Orders
02/25/25 11:22
EKG [Electrocardiogram (*1)] Urgent
Reason for Study: Abdominal Pain
EKG- Treatment ONCE
02/25/25 11:23
Alcohol Urgent
Complete Blood Count/With Diff Urgent
Comprehensive Metabolic Panel Urgent
Lipase Urgent
Comment: ADD
02/25/25 12:20
Ondansetron Injectable [Zofran] 4 mg IV NOW STA
CR Chest - 2 Views Urgent
Comment:
Reason For Exam: chest pain
02/25/25 12:21
HYDROmorphone [Dilaudid] 0.5 mg IV NOW STA
02/25/25 12:40
Add On- LAB Stat
Tests Added?: lipase, alcohol
02/25/25 12:58
D-Dimer Urgent
02/25/25 14:03
CT Abd/pelvis W Iv Cont Urgent
Comment:
Reason For Exam: right sided abdominal pain
02/25/25 16:02
Ondansetron Injectable [Zofran] 4 mg IV NOW STA
Tramadol HCl [Ultram] 50 mg PO NOW STA
Abnormal Lab Results
02/25/25 02/25/25
11:23 12:58
WBC 12.2 H 10^3/uL
(4.8-10.8)
RBC 3.55 L 10^6/uL
(4.20-5.40)
Hct 34.1 L %
(37.0-47.0)
MCH 33.8 H pg
(27.0-31.0)
RDW 15.6 H %
(11.5-14.5)
Abs Immat Gran (auto) 0.1 H 10^3/uL
(0-0.05)
Absolute Neuts (auto) 9.9 H 10^3/uL
(1.4-6.5)
Immature Gran % 0.7 H %
(0-0.5)
Neutrophils % 81.0 H %
(42.2-75.2)
Lymphocytes % 12.2 L %
(20.5-51.1)
D-Dimer 0.71 H ug/mlFEU
(0.00-0.50)
Chloride 97 L mmol/L
(98-107)
Carbon Dioxide 21 L mmol/L
(22-30)
BUN 21 H mg/dl
(7-17)
Glucose 112 H mg/dl
(70-99)
Total Bilirubin 1.4 H mg/dl
(0.2-1.3)
AST 44 H U/L
(14-36)
Alkaline Phosphatase 140 H U/L
(38-126)
Albumin 5.1 H g/dl
(3.5-5.0)
02/25/25 11:23
02/25/25 11:23
Vital Signs
Temp: 98.5 F
Initial and Last Documented VS:
Initial Vital Signs
BP Pulse Ox
158/64 100
02/25/25 11:15 02/25/25 11:15
Last Documented Vital Signs
Pulse Resp BP Pulse Ox
97 20 146/82 89
02/25/25 13:30 02/25/25 13:30 02/25/25 13:17 02/25/25 13:30
<Zach Harper PA-C - Last Filed: 02/25/25 12:47>
MDM/Problems Addressed
Differential Diagnosis Includes:
Abdominal pain/lower chest pain. Consider pneumonia. Patient has a prior history cholecystectomy. Consider musculoskeletal discomfort. No risk factors for PE.
<Lisa Parra PA-C - Last Filed: 02/25/25 16:15>
*Critical Care Note
Total Time (30-74mins, 75-104mins- exclusive of procedures): Not Applicable
<Lisa Parra PA-C - Last Filed: 02/25/25 16:15>
Update Note
Update Note:
I assumed care of patient awaiting CT abdomen results. CT is negative for acute findings. CXR is also normal. Upon review of chart, patient has been seen several times in the past for abdominal pain. She has reproducible rib tenderness on exam so
pain is possibly musculoskeletal. She has a prescription for Tramadol at home. Prescription also provided for Zofran. Advised f/u with PCP and GI. ED return precautions reviewed. Patient discharged in stable condition.
ED Attending Note
<Zach Harper PA-C - Last Filed: 02/25/25 12:47>
-
Portions of this chart may have been created with voice recognition software.� Occasional wrong word or��sound alike� substitutions may have occurred due to the inherent limitations of voice recognition software.
Discharge Plan
Departure
Patient Disposition: Home (Routine Discharge)
Date of Disposition: 02/25/25
Time of Disposition: 16:06
Patient with high blood pressure during this ER visit?: Yes
Discharge Problem:
Right sided abdominal pain, Nausea
Instructions: Abdominal Pain
Prescriptions:
New
ondansetron 4 mg tablet,disintegrating
4 mg PO Q6H PRN (Reason: nausea and vomiting) Qty: 20 0RF
No Action
folic acid 1 mg Tablet
1 mg PO DAILY Qty: 30 0RF
cyanocobalamin (vitamin B-12) 1,000 mcg Tablet
1,000 mcg PO DAILY 30 Days Qty: 30 2RF
pantoprazole 40 mg tablet,delayed release (DR/EC)
40 mg PO BID Qty: 0 0RF
lorazepam 0.5 mg Tablet
0.5 mg PO HS
acetaminophen 325 mg tablet
650 mg PO TID
cyclobenzaprine 10 mg Tablet
10 mg PO DAILYPRN PRN (Reason: muscle spasms)
therapeutic multivitamin Tablet
1 tab PO DAILY
duloxetine 20 mg Capsule,Delayed Release(Dr/Ec)
20 mg PO DAILY
cranberry 450 mg Tablet
450 mg PO DAILY
vancomycin 50 mg/mL Recon Soln
125 mg PO Q6 10 Days Qty: 100 0RF
dicyclomine 20 mg Tablet
20 mg PO TID Qty: 60 0RF
sucralfate 100 mg/mL Suspension
1 gm PO ACHS Qty: 0 0RF
amlodipine 2.5 mg Tablet
2.5 mg PO BID Qty: 60 0RF
thiamine mononitrate (vit B1) 100 mg Tablet
100 mg PO DAILY Qty: 0 0RF
cholestyramine (with sugar) 4 gram Powder In Packet
1 ea PO BID 30 Days Qty: 60 0RF
oxycodone 5 mg Tablet
5 mg PO Q4HPRN PRN (Reason: moderate pain) Qty: 10 0RF
dicyclomine 20 mg tablet
20 mg PO QID PRN (Reason: pain) Qty: 20 0RF
promethazine 25 mg suppository
25 mg LA Q6H PRN (Reason: nausea and vomiting) Qty: 12 0RF
Referrals:
Krysta Griffin MD [Active, Gastroenterology]
Ishaan Ames DO [Family Provider]
Activity Restrictions/Additional Instructions:
Take Zofran as needed for nausea.
Please follow-up with your family doctor and gastroenterology. Return to the ER with any new or worsening symptoms.
Interventions
Interventions:
*Risk Screen - Suicide Last Done: 02/25/25 11:18
*General Assessment Last Done: 02/25/25 11:18
*Neglect/Abuse Screening Last Done: 02/25/25 11:18
*ED- Fall Risk Assessment Last Done: 02/25/25 11:18
*ED COVID-19 Vaccine History Last Done: 02/25/25 11:18
EZ-Sjjgmv-Amqncknhrc Assessment Last Done: 02/25/25 13:14
Discharge Date and Time
Print Language: GUINEAN
[2025-02-25 13:11] LABS: Lipase 111 U/L (23-300)
[2025-02-25 13:16] LABS: Alcohol None Detected
[2025-02-25 13:18] LABS: D-Dimer 0.71 ug/mlFEU (0.00-0.50)
[2025-02-25] MEDS: ULTRAM 50 MG PO (16:18)
== END 2025-02-25 16:55 | disposition home or self-care (01) ==
LOC: EMR 11:09
PROVIDERS: Emergency Medicine; Physician Assistant; EMERGENCY PHYSICIAN Emergency Medicine; FAMILY PHYSICIAN Family Medicine
DX: R10.9 Unspecified abdominal pain (principal); R11.0 Nausea; K21.9 Gastro-esophageal reflux disease without esophagitis; I10 Essential (primary) hypertension; F41.9 Anxiety disorder, unspecified; Z85.828 Personal history of other malignant neoplasm of skin; Z87.891 Personal history of nicotine dependence; Z90.49 Acquired absence of other specified parts of digestive tract; Z90.710 Acquired absence of both cervix and uterus
CPT/HCPCS: 99284; 96374; 96375; 96376; 71046; 74177; 80053; 82077; 83690; 85025; 85379; 93005; Q9967